=== PATIENT | female | born 1940 | race Caucasian/White ===

== ENCOUNTER 2016-08-25 19:55 | Emergency (ER) | payer MEDICARE ==
[~2016-08-25] VITALS: Ht 165.1 cm; Wt 73.1 kg
[~2016-08-25 19:55] MED LIST: ACHD5005 PO; ACYC800T PO; ALPR.25T; ALPR1TAB7 PO; ALPR1TAB72 PO; ASP81TEC PO; ATOR40TA70 PO; ATR20T PO; BENICAR; BUPR150T PO; BUPR300T51 PO; CHOLESTEROL MED PO; CIPR500T4 PO; CITA-105 PO; CLC500CT; ESCT10T; FLUT9.9S NSEACH; GAS X; GBPN100C PO; HCT25T PO; HYDR-2997 PO; HYDR-3820 PO; ISOS20TA73 PO; ISOS30TA3 PO; LACT1CAP45 PO; LISI10TA PO; LISI10TA2 PO; METO-333 PO; METO25TA PO; NAPR-243 PO; OMEG-12 PO; OMEP20CA12 PO; OMEP20TA7 PO; OXYC-309 PO; PANT20TA2 PO; SUCR1TAB PO; [UNRECOGNIZED DRUG - OTHER]
--- NOTE | 2016-08-25 21:13 | ED Lower Extremity ---
General Chief Complaint: Lower Extremity Stated Complaint: L FOOT INJ Nursing Triage Note: PT REPORTS TWISTING L ANKLE WHEN GETTING UP FROM RECLINER. MILD SWELLING NOTED. NO DEFORMITY NOTED AT TIS TIME. Nursing Sepsis Screen: No Definite Risk Source: patient Exam Limitations: no limitations History of Present Illness Time seen by provider: 21:13 Initial Comments 76-year-old female patient presents to the emergency department complaints of left foot/ankle pain. Reports she was getting up from the recliner and twisted the left ankle. Now complains of swelling and pain. Location Injury Occurred: home Onset: just prior to arrival Pain/Injury Location: left foot, left ankle Method of Injury: twisted Modifying Factors: Improves With Immobilization, Worse With Movement Allergies and Home Medications Allergies Coded Allergies: penicillin G (Unverified Allergy, Mild, HIVES...REC ANCEF WITHOUT PROBLEMS , 06/22/12) Iodinated Contrast Media - IV Dye (Verified Allergy, Unknown, 06/22/12) Home Medications Alprazolam 1 Mg Tablet 1 MG PO Q8H PRN PRN ANXIETY (Reported) Atorvastatin Calcium 40 Mg Tablet 40 MG PO HS (Reported) Bupropion HCl 300 Mg Tab.er.24h 300 MG PO DAILY (Reported) Ciprofloxacin HCl 500 Mg Tablet #14 500 MG PO BID Prescribed by: CLAIR ROMEO on 11/26/15 0857 Fluticasone Propionate 9.9 Ml [place].susp 2 SPRAYS NSEACH BID (Reported) Gabapentin 100 Mg Cap 100 MG PO TID PRN PRN PAIN (Reported) Hydrocodone/Acetaminophen 1 Each Tablet 1 TAB PO EVERY 4-6 HOURS PRN PRN PAIN ( Reported) Isosorbide Mononitrate 30 Mg Tab.er.24h 30 MG PO DAILY (Reported) Lactobacillus Acidophilus 1 Each Capsule #30 1 EACH PO TID Prescribed by: CLAIR ROMEO on 11/26/15 0857 Lisinopril 10 Mg Tablet 10 MG PO DAILY (Reported) Metoprolol Tartrate 25 Mg Tablet 25 MG PO BID (Reported) Omeprazole 20 Mg Capsule.dr 20 MG PO BID (Reported) Constitutional: no symptoms reported Respiratory: no symptoms reported Cardiovascular: no symptoms reported Musculoskeletal: see HPI joint pain joint swelling Skin: No change in color Psychiatric/Neurological: Denies Numbness, Denies Paresthesia, Denies Tingling , Denies Weakness All Other Systems Reviewed Negative Unless Noted: Yes (Negative excepted noted.) Past Xuauccw-Xbjwre-Jzudbj Hx Patient Social History Alcohol Use: Denies Use Recreational Drug Use: No Smoking Status: Former Smoker Type Used: Cigarettes Former Smoker/When Quit: December 22, 1991 2nd Hand Smoke Exposure: No Recent Foreign Travel: No Contact w/Someone Who Travel: No Recent Infectious Disease Expo: No Recent Hopitalizations: No Physical Abuse Screen: No Sexual Abuse: No Immunizations Up To Date Tetanus Booster (TDap): More than 5yrs PED Vaccines UTD: Yes Date of Pneumonia Vaccine: Aug 03, 2014 Date of Influenza Vaccine: May 29, 2014 Surgeries HX Surgeries: Yes (Hysterectomy, Left total knee, Back stimulator) Respiratory Hx Respiratory Disorders: No Cardiovascular Hx Cardiac Disorders: Yes (HEART CATH APPROX 2007) Neurological Hx Neurological Disorders: No Reproductive System Hx Reproductive Disorders: No Sexually Transmitted Disease: No HIV/AIDS: No Genitourinary Hx Genitourinary Disorders: No Gastrointestinal Hx Gastrointestinal Disorders: Yes (COLON RESECTION IN THE PAST) Musculoskeletal Hx Musculoskeletal Disorders: Yes (ARTHRITIS, FIBROMYALGIA) Endocrine Hx Endocrine Disorders: No HEENT HX ENT Disorders: No Cancer Hx Cancer: No Psychosocial Hx Psychiatric Problems: Yes Behavioral Health Disorders: Anxiety, Depression Integumentary HX Skin/Integumentary Disorder: No Blood Transfusions Hx Blood Disorders: No Adverse Reaction to a Blood Tr: No Reviewed Nursing Assessment Reviewed/Agree w Nursing PMH: Yes Family Medical History Significant Family History: No Pertinent Family Hx, Heart Disease, Cancer, CAD Over 55 Years Old, Hypertension Family Medial History: Cancer of mouth 19 FATHER Cardiovascular disease 19 MOTHER G8 BROTHER Colon cancer 19 MOTHER Diabetes mellitus G8 BROTHER Hypercholesterolemia 19 MOTHER Hypertension 19 MOTHER G8 BROTHER Myocardial infarction G8 BROTHER Physical Exam Vital Signs Capillary Refill : Less Than 3 Seconds General Appearance: WD/WN no apparent distress Cardiovascular: normal peripheral pulses regular rate, rhythm no edema no murmur Respiratory: lungs clear normal breath sounds no respiratory distress Back: normal inspection Hips: bilateral hip non-tender, bilateral hip normal inspection, bilateral hip normal range of motion, bilateral hip no evidence of injury Knees: bilateral knee non-tender, bilateral knee normal inspection, bilateral knee normal range of motion, bilateral knee no evidence of injury Ankles: bilateral ankle non-tender, bilateral ankle normal inspection, bilateral ankle normal range of motion, bilateral ankle no evidence of injury Feet: right foot non-tender, right foot normal inspection, right foot normal range of motion, right foot no evidence of injury, left foot bone tenderness ( lateral foot), left foot ecchymosis (lateral foot), left foot limited range of motion, left foot pain, left foot soft tissue tenderness, left foot swelling ( left lateral foot.) Neurologic/Tendon: normal sensation normal motor functions normal tendon functions responds to pain no evidence tendon injury Neurologic/Psychiatric: no motor/sensory deficits alert normal mood/affect oriented x 3 Skin: warm/dry ecchymosis (left lateral mid foot.) Progress/Results/Core Measures Results/Orders My Orders Orders-MARTHA ALEJANDRA Foot, Left, 3 Views (08/25/16 21:06) Oxycodone/Apap 5/325mg Tablet (Percocet (08/25/16 21:35) Steplite (08/25/16 21:35) Vital Signs/I&O Blood Pressure Mean: 101 Diagnostic Imaging Diagonstic Imaging: Xray Plain Films/CT/US/NM/MRI: other (lt foot) Comments FINDINGS: 3 views of the left foot are obtained. There is some subtle irregularity along the proximal lateral base of the fifth metatarsal which may be degenerative, however, a subtle avulsion fracture cannot be entirely excluded. Correlate with site of pain. There are degenerative changes in the interphalangeal joints. IMPRESSION: Possible subtle nondisplaced avulsion fracture through the lateral proximal base of fifth metatarsal, versus degenerative changes. Correlate clinically with site of pain. Short-term followup x-rays may be of benefit. Dictated on workstation # [id number] Reviewed: Reviewed by Me (radiology report reviewed by me) Departure Communication Progress Notes Diagnostic findings discussed with the patient. Patient placed in a Steplite boot. Patient instructed to follow-up with Dr. Vargas as an outpatient and to call tomorrow morning for appointment time. All return precautions were discussed with the patient. Patient voices understanding and agrees with the treatment plan. Impression Impression: Primary Impression: Fracture of 5th metatarsal Qualified Code: S92.355A - Nondisplaced fracture of fifth metatarsal bone, left foot, initial encounter for closed fracture Disposition: HOME, SELF-CARE Condition: Improved Departure-Patient Inst. Decision time for Depature: 21:35 Referrals: ROSALEE VARGAS MD, HOLLY A MD (PCP/Family) Primary Care Physician SONYA VERDE MD Patient Instructions: Foot Fracture (DC) Add. Discharge Instructions: All discharge instructions reviewed with patient and/or family. Voiced understanding. Medications as instructed. Continue usual home medications. Elevate the left foot on pillows. Ice pack for 20 minute intervals as needed for pain. Boot as instructed. Follow-up with Dr. Vargas or your family practitioner as an outpatient for recheck in the next 7 days. Call for appointment time tomorrow morning. Return to the emergency department for worsened symptoms or any other concerns. MARTHA ALEJANDRA Aug 25, 2016 21:13
--- NOTE | 2016-08-25 21:24 | Diagnostic Imaging Report ---
INDICATION: Fall. COMPARISON: None FINDINGS: 3 views of the left foot are obtained. There is some subtle irregularity along the proximal lateral base of the fifth metatarsal which may be degenerative, however, a subtle avulsion fracture cannot be entirely excluded. Correlate with site of pain. There are degenerative changes in the interphalangeal joints. IMPRESSION: Possible subtle nondisplaced avulsion fracture through the lateral proximal base of fifth metatarsal, versus degenerative changes. Correlate clinically with site of pain. Short-term followup x-rays may be of benefit. Dictated by: Dictated on workstation # [id number]
[2016-08-25] MEDS ORDERED: oxyCODONE/APAP 5/325MG (PERCOCET 5) TABLET PO STA (21:35)
[2016-08-25 21:59] VITALS: BP 137/84
== END 2016-08-25 22:00 | disposition home or self-care (01) ==
LOC: EDUNIT# 19:55 → ER 19:57
DX: S92.355A Nondisplaced fracture of fifth metatarsal bone, left foot, initial encounter for closed fracture (principal); X58.XXXA Exposure to other specified factors, initial encounter; Y92.009 Unspecified place in unspecified non-institutional (private) residence as the place of occurrence of the external cause; Y99.8 Other external cause status
CPT/HCPCS: 73630

== ENCOUNTER → 2016-09-29 | Outpatient (CLI) | payer MEDICARE ==
--- NOTE | 2016-10-01 13:29 | ECHOCARDIOGRAPHY REPORT ---
PROCEDURE PHYSICIAN: KRISTIAN TRONCOSO DATE OF PROCEDURE: 09/29/2016 TWO DIMENSIONAL ECHOCARDIOGRAM REPORT PRIMARY PHYSICIAN: Dr. Newby OTHER PHYSICIAN: REFERRING PHYSICIAN: ORDERING PHYSICIAN: Dr. Troncoso INDICATION FOR THE PROCEDURE: Shortness of breath, aortic stenosis MEASUREMENTS DERIVED VALUES LV DIAMETER (LAX) NORMALS NORMALS Diastolic 5.3 (3.6-5.2) Eject. Fract. (60%+/-6%) Systolic (2.3-3.9) Diastolic Vol. % Shortening (0.22-0.42) Systolic Vol. Aortic Root 2.8 IVS THICKNESS Diastolic 1. (0.6-1.1) LVPW THICKNESS Diastolic 1.1 (0.6-1.1) LA DIAMETER Systolic 4.7 (2.1-3.7) DESCRIPTION: 2-dimension echocardiography shows normal global left ventricular systolic function with normal regional wall motion. Mitral and tricuspid valve leaflets show good leaflet excursion. There is moderate aortic valve sclerosis. Aortic valve leaflet shows fair to good leaflet excursion. There is no significant pericardial effusion. There is mild to moderate enlargement of the left atrium. Doppler imaging shows mild mitral and tricuspid and aortic regurgitation. Pulmonary artery systolic pressure is estimated to be approximately 45 to 50 mmHg. Peak pressure gradient across the aortic valve is approximately 41 mmHg with a mean gradient of 21 mmHg. The aortic valve area is calculated to be approximately 1.2 sq cm. There is no evidence of significant intracardiac shunt on this transthoracic echocardiographic study. Inferior vena cava appears to be mildly dilated but does seem to have some inspiratory collapse. CONCLUSION: 1. Normal left ventricular systolic function with ejection fraction approximately 50%. 2. Moderate aortic stenosis with a mean gradient across the aortic valve of approximately 20 mmHg and a calculated valve area approximately 1.2 sq cm. 3. Mild aortic, mitral and tricuspid regurgitation. 4. Pulmonary artery systolic pressure is estimated to be approximately 45 to 50 mm of mercury. 5. Mild to moderate enlargement of the left atrium. Job ID: [id number] Dictated Date: 10/01/2016 10:50:35 Cardiovascular Radiologic Technologist Date: 10/01/2016 13:20:22 / dillan
== END ==
LOC: RAD 11:13
PROVIDERS: ATTEND Internal Medicine Cardiovascular Disease
DX: I70.213 Atherosclerosis of native arteries of extremities with intermittent claudication, bilateral legs (principal); R06.02 Shortness of breath; I35.0 Nonrheumatic aortic (valve) stenosis; I10 Essential (primary) hypertension; E78.4 Other hyperlipidemia; G47.33 Obstructive sleep apnea (adult) (pediatric); R00.2 Palpitations
CPT/HCPCS: 93225; 93226; 93306; 93923

== ENCOUNTER → 2016-10-13 | Outpatient (CLI) | payer MEDICARE ==
[~2016-10-13] VITALS: Ht 167.6 cm; Wt 63.0 kg
[~2016-10-13] MED LIST changes: +CATHETER FLUSH 10 ML SYR IV PRN; +REGADENOSON 0.4 MG/5 ML SYR (LEXISCAN) IV ONE
[2016-10-13 09:41] VITALS: BP 139/73
[2016-10-13 09:52] VITALS: BP 141/68
--- NOTE | 2016-10-14 07:43 | STRESS TEST ---
PROCEDURE PHYSICIAN: KRISTIAN TRONCOSO DATE OF PROCEDURE: 10/13/2016 RESTING AND POST REGADENOSON TECHNETIUM 99M TETROFOSMIN SPECT CT IMAGING: ORDERING PHYSICIAN: Dr. Troncoso. PRIMARY PHYSICIAN: Dr. Newby CLINICAL DIAGNOSIS: 1. Shortness of breath. 2. Aortic stenosis. 3. Hypertension. Baseline images were carried out after injection of 10.11 mCi of technetium 99m tetrofosmin. This was followed by 0.4 mg of regadenoson and 30.3 mCi of technetium 99m tetrofosmin for stress imaging. The electrocardiogram showed sinus rhythm at baseline and did not change significantly with the regadenoson infusion. Review of images at rest and following stress, does not indicate any significant perfusion defects consistent with significant myocardial ischemia or infarction. Gating could not be carried out on this study. CONCLUSIONS: 1. No evidence of any significant myocardial ischemia or infarction on this study. 2. Gating could not be carried out on this study. Job ID: [id number] Dictated Date: 10/13/2016 18:17:50 Bit Gatherer Date: 10/14/2016 07:41:00 / sidney
== END ==
LOC: CARD 08:15
PROVIDERS: ATTEND Internal Medicine Cardiovascular Disease
DX: I35.0 Nonrheumatic aortic (valve) stenosis (principal); R06.02 Shortness of breath; I10 Essential (primary) hypertension; E78.4 Other hyperlipidemia; G47.33 Obstructive sleep apnea (adult) (pediatric); R00.2 Palpitations

== ENCOUNTER → 2017-01-05 | Outpatient (CLI) | payer MEDICARE ==
[~2017-01-05] MED LIST changes: -CATHETER FLUSH 10 ML SYR IV PRN; -REGADENOSON 0.4 MG/5 ML SYR (LEXISCAN) IV ONE
--- NOTE | 2017-01-06 13:49 | Diagnostic Imaging Report ---
Bilateral screening mammogram The current study was also evaluated with a Computer Aided Detection (CAD) system. INDICATION: Screening. No current complaints stated on the questionnaire. COMPARISON: 10/11/13. FINDINGS: The breasts are composed of scattered fibroglandular densities. There are occasional benign-appearing calcifications. Allowing for technique and positional differences, no suspicious change is seen. IMPRESSION: No significant change. ACR BI-RADS Category 2: Benign findings. Result letter will be mailed to the patient. Note: At least 10% of breast cancer is not imaged by mammography. Dictated by: Dictated on workstation # [id number]
== END ==
LOC: RAD 11:05
PROVIDERS: ATTEND Nurse Practitioner Family
DX: Z12.31 Encounter for screening mammogram for malignant neoplasm of breast (principal)
CPT/HCPCS: 77067

== ENCOUNTER → 2018-05-17 | Outpatient (CLI) | payer MEDICARE | LOC: CARD 11:40 | PROVIDERS: ATTEND Internal Medicine Cardiovascular Disease | DX: I27.21 Secondary pulmonary arterial hypertension (principal); I35.0 Nonrheumatic aortic (valve) stenosis; R00.2 Palpitations; G47.33 Obstructive sleep apnea (adult) (pediatric); R06.02 Shortness of breath | CPT/HCPCS: 93225; 93226 ==

== ENCOUNTER → 2018-07-05 | Day surgery (SDC) | payer MEDICARE ==
[~2018-07-05] VITALS: Ht 167.6 cm; Wt 63.0 kg
[~2018-07-05] MED LIST changes: +LIDOCAINE 1% INJ 20 ML 20 ML VIAL ONE
[2018-07-05 06:55] VITALS: BP 144/64
--- OUTSIDE RECORDS SUMMARY | 2018-07-05 07:11 | XMS REPORT | CCD ---
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 Name Role Phone Rachael Newby PP Unavailable CCM Unavailable Summary Purpose Interface Exchange Insurance Providers Payer name Policy type / Coverage type Covered republican ID Effective Begin Date Effective End Date WPS Medicare Part B Medicare Part B [id number] 2013 Unknown [facility] Medicare Part B [id number] 2013 Unknown Family history Runs in the family Diagnosis Age At Onset Cardiovascular disease Unknown Father Diagnosis Age At Onset Cancer Unknown Mother Diagnosis Age At Onset Cancer Unknown Brother Diagnosis Age At Onset Myocardial infarction Unknown Cardiovascular disease Unknown Cancer Unknown Son Diagnosis Age At Onset No Family Disease Entered N/A Social History Social History Element Codes Description Effective Dates Marital status Unknown October 2004 - committed suicide 04/16/2011 Number of children Unknown 4 1 daughter in [place], 3 sons live in [facility] Employment Unknown 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 Unknown Has never used illegal drugs 04/16/2011 Allergies, Adverse Reactions, Alerts Substance Reaction Codes Entered Date Inactivated Date Status PENICILLINS hives, rash Unknown 04/16/2011 No Inactive Date Active Past Medical History Illness Codes Condition Status Onset Date Resolved Date Essential (primary) hypertension ICD-9: 401.9 ICD-10: I10 Active 03/05/2014 Unknown Chronic pain syndrome ICD-9: 338.4 ICD-10: G89.4 Active 08/10/2016 Unknown Essential (primary) hypertension ICD-9: 401.1 ICD-10: I10 Active 08/10/2016 Unknown neuropathy Unknown Active 05/27/2017 Unknown Encounter for immunization ICD-9: V04.81 ICD-10: Z23 Active 05/27/2017 Unknown Major depressive disorder, recurrent, moderate ICD-9: 296.32 ICD-10: F33.1 Active 04/27/2017 Unknown Other idiopathic peripheral autonomic neuropathy ICD-9: 337.00 ICD-10: G90.09 Active 05/27/2017 Unknown Vitamin B12 deficiency anemia due to intrinsic factor deficiency ICD-9: 281.0 ICD-10: D51.0 Active 04/27/2017 Unknown Vitamin B12 deficiency anemia, unspecified ICD-9: 266.2 ICD-10: D51.9 Active 08/10/2016 Unknown Other specified polyneuropathies ICD-9: 356.9 ICD-10: G62.89 Active 03/09/2017 Unknown Allergic rhinitis due to pollen ICD-9: 477.0 ICD-10: J30.1 Active 02/22/2017 Unknown Dysuria ICD-9: 788.1 ICD-10: R30.0 Active 05/26/2016 Unknown Elevated erythrocyte sedimentation rate ICD-9: 790.1 ICD-10: R70.0 Active 12/28/2016 Unknown Encounter for general adult medical examination with abnormal findings ICD-9: V70.0 ICD-10: Z00.01 Active 12/28/2016 Unknown Urinary tract infection, site not specified ICD-9: 599.0 ICD-10: N39.0 Active 12/24/2016 Unknown Other vitamin B12 deficiency anemias ICD-9: 281.1 ICD-10: D51.8 Active 10/14/2016 Unknown Allergic urticaria ICD -9: 708.0 ICD-10: L50.0 Active 10/06/2016 Unknown Generalized anxiety disorder ICD-9: 300.02 ICD-10: F41.1 Active 05/16/2014 Unknown Anemia, unspecified ICD-9: 285.9 ICD-10: D64.9 Active 08/10/2016 Unknown Vitamin D deficiency, unspecified ICD-9: 268.9 ICD-10: E55.9 Active 08/10/2016 Unknown Rash and other nonspecific skin eruption ICD-9: 782.1 ICD-10: R21 Active 12/07/2013 Unknown Other specified dermatitis ICD-9: 705.81 ICD-10: L30.8 Active 02/01/2014 Unknown Encounter for follow-up examination after completed treatment for conditions other than malignant neoplasm ICD-9: V67.9 ICD-10: Z09 Active 12/02/2015 Unknown Family history of malignant neoplasm of digestive organs ICD-9: V16.0 ICD-10: Z80.0 Active 12/02/2015 Unknown Gastro-esophageal reflux disease without esophagitis ICD-9: 530.81 ICD-10: K21.9 Active 09/10/2014 Unknown Mixed hyperlipidemia ICD-9: 272.4 ICD-10: E78.2 Active 01/22/2012 Unknown Pain in right shoulder ICD-9: 729.1 ICD-10: M25.511 Active 03/05/2014 Unknown Frequency of micturition ICD-9: 788.41 ICD-10: R35.0 Active 06/11/2015 Unknown Other constipation ICD -9: 564.09 ICD-10: K59.09 Active 05/08/2015 Unknown OTHER CONSTIPATION ICD -9: 564.09 Active 05/08/2015 Unknown Abdominal pain ICD-9: 789.00 Active 04/11/2015 Unknown Peripheral neuropathy ICD-9: 356.9 Active 02/08/2012 Unknown Vitamin D deficiency ICD-9: 268.9 Active 04/11/2015 Unknown Blood in stool ICD-9: 578.1 Active 03/11/2015 Unknown Hemorrhoids ICD-9: 455.6 Active 03/11/2015 Unknown Weight loss ICD-9: 783.21 Active 03/11/2015 Unknown Aortic regurgitation ICD-9: 424.1 Active 01/07/2015 Unknown Fatigue ICD-9: 780.79 Active 01/22/2012 Unknown Heart murmur ICD-9: 785.2 Active 01/07/2015 Unknown Encounter for screening mammogram for malignant neoplasm of breast ICD-9: V76.12 Active 10/15/2014 Unknown Esophageal reflux ICD- 9: 530.81 Active 09/10/2014 Unknown ACUTE URI ICD-9: 465.9 Active 08/06/2014 Unknown VACCIN STREP PNEUMONIAE ICD-9: V03.82 ICD-10: Z23 Active 08/06/2014 Unknown CHRONIC PAIN SYNDROME ICD-9: 338.4 Active 07/12/2014 Unknown Anxiety, generalized ICD-9: 300.02 Active 05/16/2014 Unknown Insomnia ICD-9: 780.52 Active 04/05/2014 Unknown Vitamin B 12 deficiency ICD-9: 266.2 Active 04/05/2014 Unknown DEPRESSIVE DISORDER NEC ICD-9: 311 Active 03/05/2014 Unknown ESSENTIAL HYPERTENSION ICD-9: 401.9 Active 03/05/2014 Unknown MYALGIA AND MYOSITIS ICD-9: 729.1 Active 03/05/2014 Unknown Dyshidrotic eczema ICD -9: 705.81 Active 02/01/2014 Unknown Rash ICD-9: 782.1 Active 12/07/2013 Unknown Dietary counseling ICD -9: V65.3 Active 09/25/2013 Unknown Back pain ICD-9: 724.5 Active 05/18/2013 Unknown Sleep apnea ICD-9: 780.57 Active 04/18/2013 Unknown Snoring disorder ICD-9 : 786.09 Active 03/16/2013 Unknown CELLULITIS OF NECK ICD -9: 682.1 Active 01/26/2013 Unknown CELLULITIS OF TRUNK ICD-9: 682.2 Active 01/26/2013 Unknown CELLULITIS, FINGER ICD -9: 681.00 Active 12/27/2012 Unknown JOINT PAIN-HAND ICD-9 : 719.44 Active 12/27/2012 Unknown Elevated glucose ICD-9 : 790.29 Active 10/07/2012 Unknown Encounter for long-term (current) use of other medications ICD-9: V58.69 Active 10/07/2012 Unknown ACUTE MAXILLARY SINUSITIS ICD-9: 461.0 Active 08/02/2012 Unknown Dental abscess ICD-9: 522.5 Active 08/02/2012 Unknown Neck pain on right side ICD-9: 723.1 Active 06/06/2012 Unknown Sacroiliitis ICD-9: 720.2 Active 06/06/2012 Unknown Tennis elbow ICD-9: 726.32 Active 06/06/2012 Unknown Medial epicondylitis ICD-9: 726.31 Active 05/16/2012 Unknown Depression Unknown Active 02/29/2012 Unknown EDEMA ICD-9: 782.3 Active 02/29/2012 Unknown ANEMIA ICD-9: 285.9 Active 02/08/2012 Unknown Acute renal failure ICD-9: 584.9 Active 02/01/2012 Unknown Paronychia of toe ICD- 9: 681.11 Active 02/01/2012 Unknown History of iron deficiency anemia ICD-9: V12.3 Active 2011 Unknown HYPERLIPIDEMIA ICD-9: 272.4 Active 01/22/2012 Unknown Oral aphthae ICD-9: 528.2 Active 01/22/2012 Unknown ACUTE SINUSITIS ICD-9 : 461.9 Active 10/19/2011 Unknown COUGH ICD-9: 786.2 Active 10/19/2011 Unknown Small bowel obstruction Unknown Inactive 09/10/2011 Unknown Fall from slipping ICD -9: E885.9 Inactive 09/10/2011 Unknown ROUTINE GYNE EXAM ICD- 9: V72.31 Inactive 09/09/2011 Unknown Hyperlipidemia Unknown Active 08/13/2011 Unknown Hypertension Unknown Active 08/13/2011 Unknown Primary localized osteoarthrosis of the knee ICD-9: 715.16 Active 07/02/2011 Unknown Knee pain, left ICD-9 : 719.46 Active 06/24/2011 Unknown Arthritis Unknown Active 04/16/2011 Unknown Problems Condition Codes Effective Dates Condition Status Essential (primary) hypertension ICD-9: 401.9 ICD-10: I10 03/05/2014 Active Chronic pain syndrome ICD-9: 338.4 ICD-10: G89.4 08/10/2016 Active Essential (primary) hypertension ICD-9: 401.1 ICD-10: I10 08/10/2016 Active neuropathy Unknown 05/27/2017 Active Encounter for immunization ICD-9: V04.81 ICD-10: Z23 05/27/2017 Active Major depressive disorder, recurrent, moderate ICD-9: 296.32 ICD-10: F33.1 04/27/2017 Active Other idiopathic peripheral autonomic neuropathy ICD-9: 337.00 ICD-10: G90.09 05/27/2017 Active Vitamin B12 deficiency anemia due to intrinsic factor deficiency ICD-9: 281.0 ICD-10: D51.0 04/27/2017 Active Vitamin B12 deficiency anemia, unspecified ICD-9: 266.2 ICD-10: D51.9 08/10/2016 Active Other specified polyneuropathies ICD-9: 356.9 ICD-10: G62.89 03/09/2017 Active Allergic rhinitis due to pollen ICD-9: 477.0 ICD-10: J30.1 02/22/2017 Active Dysuria ICD-9: 788.1 ICD-10: R30.0 05/26/2016 Active Elevated erythrocyte sedimentation rate ICD-9: 790.1 ICD-10: R70.0 12/28/2016 Active Encounter for general adult medical examination with abnormal findings ICD-9: V70.0 ICD-10: Z00.01 12/28/2016 Active Urinary tract infection, site not specified ICD-9: 599.0 ICD-10: N39.0 12/24/2016 Active Other vitamin B12 deficiency anemias ICD-9: 281.1 ICD-10: D51.8 10/14/2016 Active Allergic urticaria ICD -9: 708.0 ICD-10: L50.0 10/06/2016 Active Generalized anxiety disorder ICD-9: 300.02 ICD-10: F41.1 05/16/2014 Active Anemia, unspecified ICD-9: 285.9 ICD-10: D64.9 08/10/2016 Active Vitamin D deficiency, unspecified ICD-9: 268.9 ICD-10: E55.9 08/10/2016 Active Rash and other nonspecific skin eruption ICD-9: 782.1 ICD-10: R21 12/07/2013 Active Other specified dermatitis ICD-9: 705.81 ICD-10: L30.8 02/01/2014 Active Encounter for follow-up examination after completed treatment for conditions other than malignant neoplasm ICD-9: V67.9 ICD-10: Z09 12/02/2015 Active Family history of malignant neoplasm of digestive organs ICD-9: V16.0 ICD-10: Z80.0 12/02/2015 Active Gastro-esophageal reflux disease without esophagitis ICD-9: 530.81 ICD-10: K21.9 09/10/2014 Active Mixed hyperlipidemia ICD-9: 272.4 ICD-10: E78.2 01/22/2012 Active Pain in right shoulder ICD-9: 729.1 ICD-10: M25.511 03/05/2014 Active Frequency of micturition ICD-9: 788.41 ICD-10: R35.0 06/11/2015 Active Other constipation ICD -9: 564.09 ICD-10: K59.09 05/08/2015 Active OTHER CONSTIPATION ICD -9: 564.09 05/08/2015 Active Abdominal pain ICD-9: 789.00 04/11/2015 Active Peripheral neuropathy ICD-9: 356.9 02/08/2012 Active Vitamin D deficiency ICD-9: 268.9 04/11/2015 Active Blood in stool ICD-9: 578.1 03/11/2015 Active Hemorrhoids ICD-9: 455.6 03/11/2015 Active Weight loss ICD-9: 783.21 03/11/2015 Active Aortic regurgitation ICD-9: 424.1 01/07/2015 Active Fatigue ICD-9: 780.79 01/22/2012 Active Heart murmur ICD-9: 785.2 01/07/2015 Active Encounter for screening mammogram for malignant neoplasm of breast ICD-9: V76.12 10/15/2014 Active Esophageal reflux ICD- 9: 530.81 09/10/2014 Active ACUTE URI ICD-9: 465.9 08/06/2014 Active VACCIN STREP PNEUMONIAE ICD-9: V03.82 ICD-10: Z23 08/06/2014 Active CHRONIC PAIN SYNDROME ICD-9: 338.4 07/12/2014 Active Anxiety, generalized ICD-9: 300.02 05/16/2014 Active Insomnia ICD-9: 780.52 04/05/2014 Active Vitamin B 12 deficiency ICD-9: 266.2 04/05/2014 Active DEPRESSIVE DISORDER NEC ICD-9: 311 03/05/2014 Active ESSENTIAL HYPERTENSION ICD-9: 401.9 03/05/2014 Active MYALGIA AND MYOSITIS ICD-9: 729.1 03/05/2014 Active Dyshidrotic eczema ICD -9: 705.81 02/01/2014 Active Rash ICD-9: 782.1 12/07/2013 Active Dietary counseling ICD -9: V65.3 09/25/2013 Active Back pain ICD-9: 724.5 05/18/2013 Active Sleep apnea ICD-9: 780.57 04/18/2013 Active Snoring disorder ICD-9 : 786.09 03/16/2013 Active CELLULITIS OF NECK ICD -9: 682.1 01/26/2013 Active CELLULITIS OF TRUNK ICD-9: 682.2 01/26/2013 Active CELLULITIS, FINGER ICD -9: 681.00 12/27/2012 Active JOINT PAIN-HAND ICD-9 : 719.44 12/27/2012 Active Elevated glucose ICD-9 : 790.29 10/07/2012 Active Encounter for long-term (current) use of other medications ICD-9: V58.69 2012 Active ACUTE MAXILLARY SINUSITIS ICD-9: 461.0 08/02/2012 Active Dental abscess ICD-9: 522.5 08/02/2012 Active Neck pain on right side ICD-9: 723.1 06/06/2012 Active Sacroiliitis ICD-9: 720.2 06/06/2012 Active Tennis elbow ICD-9: 726.32 06/06/2012 Active Medial epicondylitis ICD-9: 726.31 05/16/2012 Active Depression Unknown 02/29/2012 Active EDEMA ICD-9: 782.3 02/29/2012 Active ANEMIA ICD-9: 285.9 02/08/2012 Active Acute renal failure ICD-9: 584.9 02/01/2012 Active Paronychia of toe ICD- 9: 681.11 02/01/2012 Active History of iron deficiency anemia ICD-9: V12.3 01/22/2012 Active HYPERLIPIDEMIA ICD-9: 272.4 01/22/2012 Active Oral aphthae ICD-9: 528.2 01/22/2012 Active ACUTE SINUSITIS ICD-9 : 461.9 10/19/2011 Active COUGH ICD-9: 786.2 10/19/2011 Active Small bowel obstruction Unknown 09/10/2011 Inactive Fall from slipping ICD -9: E885.9 09/10/2011 Inactive ROUTINE GYNE EXAM ICD- 9: V72.31 09/09/2011 Inactive Hyperlipidemia Unknown 08/13/2011 Active Hypertension Unknown 08/13/2011 Active Primary localized osteoarthrosis of the knee ICD-9: 715.16 07/02/2011 Active Knee pain, left ICD-9 : 719.46 06/24/2011 Active Arthritis Unknown 04/16/2011 Active Medications Medication Codes Instructions Start Date Stop Date Status Fill Instructions isosorbide mononitrate 10 mg tablet RxNorm: 027658 1 Tablet(s) PO daily 09/03/2017 03/31/2018 Active pantoprazole 40 mg tablet,delayed release RxNorm: 793345 1 Tablet(s) PO BID x 1 wk then daily thereafter 09/03/2017 No Stop Date Active hydrocodone 10 mg-acetaminophen 325 mg tablet RxNorm: 358882 1 Tablet(s) PO Q4-6H as needed pain 07/09/2017 08/01/2017 Inactive alprazolam 1 mg tablet RxNorm: 901754 1 Tablet(s) PO Q8 PRN as needed TAKE 1 TABLET THREE TIMES DAILY NEEDED FOR ANXIETY. 07/01/2017 08/29/2017 Inactive omeprazole 20 mg tablet,delayed release RxNorm: 480360 1 Tablet(s) PO BID 07/01/2017 08/29/2017 Inactive omeprazole 20 mg tablet,delayed release RxNorm: 743487 1 Tablet(s) PO BID Tablet(s ) 1 Tablet(s) PO BID 06/30/20172016 Inactive hydrocodone 10 mg-acetaminophen 325 mg tablet RxNorm: 847339 1 Tablet(s) PO Q4-6H as needed pain 06/24/2017 07/08/2017 Inactive bupropion HCl XL 300 mg 24 hr tablet, extended release RxNorm: 444937 1 Tablet(s) PO daily 05/27/2017 08/19/2018 Active alprazolam 1 mg tablet RxNorm: 306550 1 Tablet(s) PO Q8 PRN as needed TAKE 1 TABLET THREE TIMES DAILY NEEDED FOR ANXIETY. 05/27/2017 06/30/2017 Inactive hydrocodone 10 mg-acetaminophen 325 mg tablet RxNorm: 632678 1 Tablet(s) PO Q4-6H as needed pain 05/27/2017 06/19/2017 Inactive cyanocobalamin (vit B-12) 1,000 mcg/mL injection solution RxNorm: 040853 1 Milliliter(s) Inj 05/27/2017 05/27/2017 Inactive cyanocobalamin (vit B-12) 1,000 mcg/mL injection solution RxNorm: 798394 1 Milliliter(s) Inj 04/27/2017 04/27/2017 Inactive hydrocodone 10 mg-acetaminophen 325 mg tablet RxNorm: 262227 1 Tablet(s) PO Q4-6H as needed pain 04/27/2017 05/26/2017 Inactive Cymbalta 60 mg capsule,delayed release RxNorm: 445893 1 Capsule(s) PO daily 04/27/2017 04/27/2017 Inactive cyanocobalamin (vit B-12) 1,000 mcg/mL injection solution RxNorm: 005699 1 Milliliter(s) Inj 04/09/2017 04/09/2017 Inactive cyanocobalamin (vit B-12) 1,000 mcg/mL injection solution RxNorm: 859957 Milliliter(s) Inj 03/23/2017 03/23/2017 Inactive alprazolam 1 mg tablet RxNorm: 924139 1 Tablet(s) PO Q8 PRN as needed TAKE 1 TABLET THREE TIMES DAILY NEEDED FOR ANXIETY. 03/17/2017 05/15/2017 Inactive cyanocobalamin (vit B-12) 1,000 mcg/mL injection solution RxNorm: 453966 Milliliter(s) Inj 03/11/2017 03/11/2017 Inactive metoprolol tartrate 50 mg tablet RxNorm: 152029 1 Tablet(s) PO BID 03/09/2017 03/03/2018 Active this replaces the 25mg RX for metoprolol tartate Metanx (algal oil) 3 mg-35 mg-2 mg-90.314 mg capsule RxNorm: 1 Capsule(s) PO BID 03/09/2017 05/17/2017 Inactive gabapentin 100 mg capsule RxNorm: 415726 2 Capsule(s) PO TID 05/31/2017 Inactive Zofran 4 mg tablet RxNorm: 111578 1 Tablet(s) PO TID as needed 02/26/2017 No Stop Date Active Kenalog 40 mg/mL suspension for injection RxNorm: 1135349 1 Milliliter(s) Inj 02/22/2017 02/22/2017 Inactive metoprolol tartrate 25 mg tablet RxNorm: 329518 1 Tablet(s) PO BID 02/22/2017 03/08/2017 Inactive 07/23/2016 10:27:52 AM trimethoprim 100 mg tablet RxNorm: 883444 1 Tablet(s) PO daily 01/02/2017 12/24/2016 Inactive Lipitor 40 mg tablet RxNorm: 556607 TAKE ONE TABLET BY MOUTH AT BEDTIME 12/25/2016 12/19/2017 Active Generic For:LIPITOR 40MG TAB refill request trimethoprim 100 mg tablet RxNorm: 927499 1 Tablet(s) PO daily 12/25/2016 06/22/2017 Inactive bupropion HCl XL 300 mg 24 hr tablet, extended release RxNorm: 280488 1 Tablet(s) PO daily 12/25/2016 04/26/2017 Inactive Bactrim DS 800 mg-160 mg tablet RxNorm: 528912 1 Tablet(s) PO BID 12/24/2016 01/02/2017 Inactive hydrocodone 10 mg-acetaminophen 325 mg tablet RxNorm: 667910 1 Tablet(s) PO Q4-6H as needed pain 12/24/2016 01/22/2017 Inactive bupropion HCl XL 300 mg 24 hr tablet, extended release RxNorm: 348587 1 Tablet(s) PO daily 12/24/2016 12/24/2016 Inactive omeprazole 20 mg tablet,delayed release RxNorm: 611871 Tablet(s) 1 Tablet(s) PO BID 11/27/2016 05/25/2017 Inactive hydrocodone 10 mg-acetaminophen 325 mg tablet RxNorm: 920853 1 Tablet(s) PO Q4-6H as needed pain 11/18/2016 12/11/2016 Inactive alprazolam 1 mg tablet RxNorm: 446840 1 Tablet(s) PO Q8 PRN as needed TAKE 1 TABLET THREE TIMES DAILY NEEDED FOR ANXIETY. 11/18/2016 02/15/2017 Inactive hydrocodone 10 mg-acetaminophen 325 mg tablet RxNorm: 013642 1 Tablet(s) PO Q4-6H as needed pain 10/19/2016 11/11/2016 Inactive cyanocobalamin (vit B-12) 1,000 mcg/mL injection solution RxNorm: 430543 1 Milliliter(s) Inj 10/14/2016 10/14/2016 Inactive prednisone 20 mg tablet RxNorm: 197512 3 Tablet(s) PO daily 10/08/2016 Inactive Metanx (algal oil) 3 mg-35 mg-2 mg-90.314 mg capsule RxNorm: 1 Capsule(s) PO BID 10/01/2016 01/28/2017 Inactive isosorbide mononitrate ER 30 mg tablet,extended release 24 hr RxNorm: 076191 1 Tablet(s) PO daily TAKE 1 TABLET BY MOUTH ONCE DAILY. 201612/23/2016 Inactive hydrocodone 10 mg-acetaminophen 325 mg tablet RxNorm: 108386 1 Tablet(s) PO Q4-6H as needed pain 09/24/2016 10/17/2016 Inactive cyanocobalamin (vit B-12) 1,000 mcg/mL injection solution RxNorm: 961960 Milliliter(s) Inj 09/16/2016 09/16/2016 Inactive alprazolam 1 mg tablet RxNorm: 018843 1 Tablet(s) PO Q8 PRN as needed TAKE 1 TABLET THREE TIMES DAILY NEEDED FOR ANXIETY. 09/01/2016 11/28/2016 Inactive hydrocodone 10 mg-acetaminophen 325 mg tablet RxNorm: 686795 1 Tablet(s) PO Q4-6H as needed pain 09/01/2016 09/23/2016 Inactive Vitamin D2 50,000 unit capsule RxNorm: 549269 1 Capsule(s) PO QW 08/14/2016 05/26/2017 Inactive Vitamin D2 50,000 unit capsule RxNorm: 507945 1 Capsule(s) PO QW 08/14/2016 08/13/2016 Inactive cyanocobalamin (vit B-12) 1,000 mcg/mL injection solution RxNorm: 955299 1 Milliliter(s) Inj 08/11/2016 08/11/2016 Inactive hydrocodone 10 mg-acetaminophen 325 mg tablet RxNorm: 352028 1 Tablet(s) PO Q4-6H as needed pain 08/07/2016 08/30/2016 Inactive metoprolol tartrate 25 mg tablet RxNorm: 784165 TAKE 1 TABLET BY MOUTH TWICE DAILY 07/23/2016 12/23/2016 Inactive 07/23/2016 10:27:52 AM gabapentin 100 mg capsule RxNorm: 338935 Capsule(s) PO TID TAKE (1) CAPSULE BY MOUTH THREE TIMES DAILY. 07/14/20162016 Inactive hydrocodone 10 mg-acetaminophen 325 mg tablet RxNorm: 243933 1 Tablet(s) PO Q4-6H as needed pain 07/09/2016 08/01/2016 Inactive fluorouracil 5 % topical cream RxNorm: 394039 1 Application TOP BID 07/01/2016 06/30/2016 Inactive fluorouracil 5 % topical cream RxNorm: 844641 1 Application TOP BID 07/01/2016 07/10/2016 Inactive alprazolam 1 mg tablet RxNorm: 376970 1 Tablet(s) PO Q8 PRN as needed TAKE 1 TABLET THREE TIMES DAILY NEEDED FOR ANXIETY. 06/22/2016 08/31/2016 Inactive ( Appended: Controlled substance eRx refill - RxReferenceNumber: [id number]) hydrocodone 10 mg-acetaminophen 325 mg tablet RxNorm: 653952 1 Tablet(s) PO Q4-6H as needed pain 06/16/2016 06/30/2016 Inactive doxycycline hyclate 100 mg capsule RxNorm: 7939202 1 Capsule(s) PO BID 05/27/2016 06/02/2016 Inactive hydrocodone 10 mg-acetaminophen 325 mg tablet RxNorm: 427219 1 Tablet(s) PO Q4-6H as needed pain 05/12/2016 06/04/2016 Inactive [SAVINGS FOR NON-COVERED DRUGS -- BIN :[id number], PCN: ASPROD1, Group: XXXXX, ID# [id number], Questions: . THIS IS NOT INSURANCE.] alprazolam 1 mg tablet RxNorm: 019844 1 Tablet(s) PO Q8 PRN as needed TAKE 1 TABLET THREE TIMES DAILY NEEDED FOR ANXIETY. 05/01/2016 11/17/2016 Inactive ( Appended: Controlled substance eRx refill - RxReferenceNumber: [id number]) Flonase 50 mcg/actuation nasal spray,suspension RxNorm: 1883441 1 [place] NASAL BID 1 [place] NASAL BID 04/23/2016 04/17/2017 Inactive Flonase 50 mcg/actuation nasal spray,suspension RxNorm: 3627540 [place] 1 [place] NASAL BID 04/23/2016 04/22/2016 Inactive iron-vitamin C 100 mg-250 mg tablet RxNorm: 315069 1 Tablet(s) PO daily 04/23/2016 08/31/2016 Inactive hydrocodone 10 mg-acetaminophen 325 mg tablet RxNorm: 005869 1 Tablet(s) PO Q4-6H as needed pain 04/14/2016 05/07/2016 Inactive [SAVINGS FOR NON-COVERED DRUGS -- BIN :[id number], PCN: ASPROD1, Group: XXXXX, ID# [id number], Questions: . THIS IS NOT INSURANCE.] omeprazole 20 mg tablet,delayed release RxNorm: 548266 Tablet(s) 1 Tablet(s) PO BID 03/16/2016 09/11/2016 Inactive doxycycline hyclate 100 mg tablet RxNorm: 238527 1 Tablet(s) PO BID 03/16/2016 03/15/2016 Inactive doxycycline hyclate 100 mg tablet RxNorm: 003049 1 Tablet(s) PO BID 03/16/2016 03/22/2016 Inactive isosorbide mononitrate ER 30 mg tablet,extended release 24 hr RxNorm: 114303 1 Tablet(s) PO daily TAKE 1 TABLET BY MOUTH ONCE DAILY. 201509/11/2016 Inactive Diflucan 150 mg tablet RxNorm: 469131 1 Tablet(s) PO daily 03/03/2016 Inactive Diflucan 150 mg tablet RxNorm: 811275 1 Tablet(s) PO daily 03/08/2016 Inactive lisinopril 10 mg tablet RxNorm: 324859 Tablet(s) 1 tab(s) po daily 02/11/2016 12/23/2016 Inactive bupropion HCl XL 300 mg 24 hr tablet, extended release RxNorm: 349982 1 Tablet(s) PO daily 02/05/2016 12/23/2016 Inactive hydrocodone 10 mg-acetaminophen 325 mg tablet RxNorm: 309310 1 Tablet(s) PO Q4-6H as needed pain 01/31/2016 02/23/2016 Inactive [SAVINGS FOR NON-COVERED DRUGS -- BIN :798390, PCN: ASPROD1, Group: XXXXX, ID# [id number], Questions: . THIS IS NOT INSURANCE.] alprazolam 1 mg tablet RxNorm: 696000 1 Tablet(s) PO Q8 PRN as needed TAKE 1 TABLET THREE TIMES DAILY NEEDED FOR ANXIETY. 01/21/2016 06/21/2016 Inactive ( Appended: Controlled substance eRx refill - RxReferenceNumber: [id number]) buspirone 5 mg tablet RxNorm: 983917 1 Tablet(s) PO BID 201501/20/2016 Inactive betamethasone valerate 0.1 % topical ointment RxNorm: 770527 1 TOP TID on rash of hand and leg 01/14/2016 02/12/2016 Inactive hydrocodone 10 mg-acetaminophen 325 mg tablet RxNorm: 278683 1 Tablet(s) PO Q4-6H as needed pain 12/31/2015 01/23/2016 Inactive [SAVINGS FOR NON-COVERED DRUGS -- BIN :[id number], PCN: ASPROD1, Group: XXXXX, ID# [id number], Questions: . THIS IS NOT INSURANCE.] cyanocobalamin (vit B-12) 1,000 mcg/mL injection solution RxNorm: 877035 Milliliter(s) Inj 12/03/2015 12/03/2015 Inactive hydrocodone 10 mg-acetaminophen 325 mg tablet RxNorm: 257683 1 Tablet(s) PO Q4-6H as needed pain 11/20/2015 12/13/2015 Inactive [SAVINGS FOR NON-COVERED DRUGS -- BIN :485800, PCN: ASPROD1, Group: XXXXX, ID# [id number], Questions: . THIS IS NOT INSURANCE.] Lipitor 40 mg tablet RxNorm: 271139 1 Tablet(s) PO QHS TAKE 1 TABLET BY MOUTH ONCE DAILY. 10/29/2015 10/22/2016 Inactive pt to take 2 tabs of lipitor 20mg. She will call when ready to fill 40mg. hydrocodone 10 mg-acetaminophen 325 mg tablet RxNorm: 372067 1 Tablet(s) PO Q4-6H as needed pain 10/04/2015 11/19/2015 Inactive [SAVINGS FOR NON-COVERED DRUGS -- BIN :686131, PCN: ASPROD1, Group: XXXXX, ID# [id number], Questions: . THIS IS NOT INSURANCE.] alprazolam 1 mg tablet RxNorm: 237430 1 Tablet(s) PO Q8 PRN as needed TAKE 1 TABLET THREE TIMES DAILY NEEDED FOR ANXIETY. 09/25/2015 01/20/2016 Inactive ( Appended: Controlled substance eRx refill - RxReferenceNumber: [id number]) isosorbide mononitrate ER 30 mg tablet,extended release 24 hr RxNorm: 849830 1 Tablet(s) PO daily TAKE 1 TABLET BY MOUTH ONCE DAILY. 201503/15/2016 Inactive hydrocodone 10 mg-acetaminophen 325 mg tablet RxNorm: 762035 1 Tablet(s) PO Q4-6H as needed pain 07/02/2015 08/18/2015 Inactive [SAVINGS FOR NON-COVERED DRUGS -- BIN :[id number], PCN: ASPROD1, Group: XXXXX, ID# [id number], Questions: . THIS IS NOT INSURANCE.] omeprazole 20 mg tablet,delayed release RxNorm: 296205 1 Tablet(s) PO BID 06/25/2015 01/20/2016 Inactive [SAVINGS FOR UNINSURED PATIENTS -- BIN:359201, PCN: ASPROD1, Group: AME08, ID# [id number], Process claim through [employer], for questions: . THIS IS NOT INSURANCE.] gabapentin 100 mg capsule RxNorm: 770929 TAKE 1 CAPSULE BY MOUTH 3 TIMES DAILY * SCHEDULED PREVENTION MEDICINE* 06/25/2015 06/18/2016 Inactive Generic For:NEURONTIN 100MG 06/25/2015 9:18:27 AM N O T I C E Last quantity doesn't match original quantity hydrocodone 10 mg-acetaminophen 325 mg tablet RxNorm: 974538 1 Tablet(s) PO Q4-6H as needed pain 06/07/2015 06/30/2015 Inactive [SAVINGS FOR NON-COVERED DRUGS -- BIN :726315, PCN: ASPROD1, Group: XXXXX, ID# [id number], Questions: . THIS IS NOT INSURANCE.] Amitiza 8 mcg capsule RxNorm: 372836 1 Capsule(s) PO daily 05/0904/22/2016 Inactive cyanocobalamin (vit B-12) 1,000 mcg/mL injection solution RxNorm: 294442 Milliliter(s) Inj 04/12/2015 04/12/2015 Inactive alprazolam 1 mg tablet RxNorm: 793888 1 Tablet(s) PO Q8 PRN as needed TAKE 1 TABLET THREE TIMES DAILY NEEDED FOR ANXIETY. 04/12/2015 09/24/2015 Inactive ( Appended: Controlled substance eRx refill - RxReferenceNumber: [id number]) hydrocodone 10 mg-acetaminophen 325 mg tablet RxNorm: 410757 1 Tablet(s) PO Q4-6H as needed pain 04/09/2015 05/01/2015 Inactive [SAVINGS FOR NON-COVERED DRUGS -- BIN :709752, PCN: ASPROD1, Group: XXXXX, ID# [id number], Questions: . THIS IS NOT INSURANCE.] hydrocodone 10 mg-acetaminophen 325 mg tablet RxNorm: 488883 1 Tablet(s) PO Q4-6H as needed pain 03/12/2015 04/04/2015 Inactive [SAVINGS FOR NON-COVERED DRUGS -- BIN :525757, PCN: ASPROD1, Group: XXXXX, ID# [id number], Questions: . THIS IS NOT INSURANCE.] Anusol-HC 25 mg suppository RxNorm: 0097096 1 Suppository RTL QHS as needed 03/12/2015 04/10/2015 Inactive hydrocodone 10 mg-acetaminophen 325 mg tablet RxNorm: 664541 1 Tablet(s) PO Q4-6H as needed pain 02/08/2015 03/03/2015 Inactive [SAVINGS FOR NON-COVERED DRUGS -- BIN :408918, PCN: ASPROD1, Group: XXXXX, ID# [id number], Questions: . THIS IS NOT INSURANCE.] cyanocobalamin (vit B-12) 1,000 mcg/mL injection solution RxNorm: 211927 Milliliter(s) Inj 01/22/2015 01/22/2015 Inactive Vitamin D2 50,000 unit capsule RxNorm: 566588 1 Capsule(s) PO QW 01/10/2015 01/09/2015 Inactive Vitamin D2 50,000 unit capsule RxNorm: 271682 1 Capsule(s) PO QW 01/10/2015 04/09/2015 Inactive [SAVINGS FOR NON-COVERED DRUGS -- BIN:176787, PCN: ASPROD1, Group: XXXXX, ID# [id number], Questions: . THIS IS NOT INSURANCE.] Flonase 50 mcg/actuation nasal spray,suspension RxNorm: 8027088 1 [place] NASAL BID 01/09/2015 01/03/2016 Inactive [SAVINGS FOR UNINSURED PATIENTS -- BIN:351658, PCN: ASPROD1, Group: AME08, ID# [id number], Process claim through [employer], for questions: . THIS IS NOT INSURANCE.] Kenalog 40 mg/mL suspension for injection RxNorm: 4931556 1 Milliliter(s) Inj 01/08/2015 01/08/2015 Inactive Vitamin B-12 1,000 mcg/mL injection solution RxNorm: 287315 1 Milliliter(s) Inj 01/08/2015 01/08/2015 Inactive [SAVINGS FOR NON-COVERED DRUGS -- BIN:038804, PCN: ASPROD1, Group: XXXXX, ID# [id number], Questions: . THIS IS NOT INSURANCE.] bupropion HCl XL 300 mg 24 hr tablet, extended release RxNorm: 947823 1 Tablet(s) PO daily 01/08/2015 02/01/2016 Inactive this replaces the wellbutrin sr 150mg bid dose she currently has on file metoprolol tartrate 25 mg tablet RxNorm: 068794 1 Tablet(s) PO BID 12/17/2014 12/11/2015 Inactive hydrocodone 10 mg-acetaminophen 325 mg tablet RxNorm: 688086 1 Tablet(s) PO Q4-6H as needed pain 12/05/2014 12/28/2014 Inactive [SAVINGS FOR NON-COVERED DRUGS -- BIN :731569, PCN: ASPROD1, Group: XXXXX, ID# [id number], Questions: . THIS IS NOT INSURANCE.] cyanocobalamin (vit B-12) 1,000 mcg/mL injection solution RxNorm: 823745 Milliliter(s) Inj 11/28/2014 11/28/2014 Inactive [SAVINGS FOR NON-COVERED DRUGS -- BIN:792458, PCN: ASPROD1, Group: XXXXX, ID# [id number], Questions: [phone]. THIS IS NOT INSURANCE.] lisinopril 10 mg tablet RxNorm: 330733 1 tab(s) po daily 201402/10/2016 Inactive lisinopril 10 mg tablet RxNorm: 293755 1 Tablet(s) PO daily 11/04/2014 Inactive [SAVINGS FOR NON-COVERED DRUGS -- BIN:634822, PCN: ASPROD1, Group: XXXXX, ID# [id number], Questions: . THIS IS NOT INSURANCE.] alprazolam 1 mg tablet RxNorm: 631097 1 Tablet(s) PO Q8 PRN as needed TAKE 1 TABLET THREE TIMES DAILY NEEDED FOR ANXIETY. 10/31/2014 04/11/2015 Inactive ( Appended: Controlled substance eRx refill - RxReferenceNumber: [id number]) hydrocodone 10 mg-acetaminophen 325 mg tablet RxNorm: 048855 1 Tablet(s) PO Q4-6H as needed pain 10/31/2014 11/29/2014 Inactive [SAVINGS FOR NON-COVERED DRUGS -- BIN :616572, PCN: ASPROD1, Group: XXXXX, ID# [id number], Questions: . THIS IS NOT INSURANCE.] bupropion HCl XL 300 mg 24 hr tablet, extended release RxNorm: 226250 1 Tablet(s) PO daily 10/29/2014 01/07/2015 Inactive this replaces the wellbutrin sr 150mg bid dose she currently has on file cyanocobalamin (vit B-12) 1,000 mcg/mL injection solution RxNorm: 297615 Milliliter(s) Inj 10/04/2014 10/04/2014 Inactive [SAVINGS FOR UNINSURED PATIENTS - - BIN:757843, PCN: ASPROD1, Group: AME08, ID# [id number], Process claim through [employer], for questions: . THIS IS NOT INSURANCE.] hydrocodone 10 mg-acetaminophen 325 mg tablet RxNorm: 365113 1 Tablet(s) PO Q4-6H as needed pain 10/04/2014 10/30/2014 Inactive [SAVINGS FOR UNINSURED PATIENTS -- BIN:748762, PCN: ASPROD1, Group: AME08, ID# [id number], Process claim through [employer], for questions: . THIS IS NOT INSURANCE.] Flonase 50 mcg/actuation nasal spray,suspension RxNorm: 502029 1 [place] NASAL BID 10/04/2014 12/02/2014 Inactive [SAVINGS FOR UNINSURED PATIENTS -- BIN:133453, PCN: ASPROD1, Group: AME08, ID# [id number], Process claim through [employer], for questions: . THIS IS NOT INSURANCE.] hydrocodone 10 mg-acetaminophen 325 mg tablet RxNorm: 878572 1 Tablet(s) PO Q4-6H as needed pain 10/04/2014 11/02/2014 Inactive [SAVINGS FOR UNINSURED PATIENTS -- BIN:944012, PCN: ASPROD1, Group: AME08, ID# [id number], Process claim through [employer], for questions: . THIS IS NOT INSURANCE.] alprazolam 1 mg tablet RxNorm: 052262 1 Tablet(s) PO Q8 PRN as needed TAKE 1 TABLET THREE TIMES DAILY NEEDED FOR ANXIETY. 09/26/2014 10/30/2014 Inactive ( Appended: Controlled substance eRx refill - RxReferenceNumber: [id number]) cyanocobalamin (vit B-12) 1,000 mcg/mL injection solution RxNorm: 313209 Milliliter(s) Inj 09/10/2014 09/10/2014 Inactive [SAVINGS FOR UNINSURED PATIENTS - - BIN:335827, PCN: ASPROD1, Group: AME08, ID# [id number], Process claim through [employer], for questions: . THIS IS NOT INSURANCE.] omeprazole 20 mg tablet,delayed release RxNorm: 753187 1 Tablet(s) PO BID 09/10/2014 04/07/2015 Inactive [SAVINGS FOR UNINSURED PATIENTS -- BIN:524120, PCN: ASPROD1, Group: AME08, ID# [id number], Process claim through [employer], for questions: . THIS IS NOT INSURANCE.] hydrocodone 10 mg-acetaminophen 325 mg tablet RxNorm: 114771 1 Tablet(s) PO Q4-6H as needed pain 09/03/2014 10/02/2014 Inactive [SAVINGS FOR UNINSURED PATIENTS -- BIN:358043, PCN: ASPROD1, Group: AME08, ID# [id number], Process claim through [employer], for questions: . THIS IS NOT INSURANCE.] cyanocobalamin (vit B-12) 1,000 mcg/mL injection solution RxNorm: 918433 Milliliter(s) Inj 08/06/2014 08/06/2014 Inactive [SAVINGS FOR UNINSURED PATIENTS - - BIN:446618, PCN: ASPROD1, Group: AME08, ID# [id number], Process claim through [employer], for questions: . THIS IS NOT INSURANCE.] prednisone 20 mg tablet RxNorm: 577066 3 Tablet(s) PO daily 08/10/2014 Inactive hydrocodone 10 mg-acetaminophen 325 mg tablet RxNorm: 803360 1 Tablet(s) PO Q4-6H as needed pain 07/12/2014 08/10/2014 Inactive [SAVINGS FOR UNINSURED PATIENTS -- BIN:846762, PCN: ASPROD1, Group: AME08, ID# [id number], Process claim through [employer], for questions: . THIS IS NOT INSURANCE.] alprazolam 1 mg tablet RxNorm: 667902 1 Tablet(s) PO Q8 PRN as needed TAKE 1 TABLET THREE TIMES DAILY NEEDED FOR ANXIETY. 07/12/2014 09/25/2014 Inactive ( Appended: Controlled substance eRx refill - RxReferenceNumber: [id number]) cyanocobalamin (vit B-12) 1,000 mcg/mL injection solution RxNorm: 924795 Milliliter(s) Inj 07/12/2014 07/12/2014 Inactive [SAVINGS FOR UNINSURED PATIENTS - - BIN:320899, PCN: ASPROD1, Group: AME08, ID# [id number], Process claim through [employer], for questions: . THIS IS NOT INSURANCE.] hydrocodone 10 mg-acetaminophen 325 mg tablet RxNorm: 502917 1 Tablet(s) PO Q4-6H as needed pain 06/28/2014 07/11/2014 Inactive [SAVINGS FOR UNINSURED PATIENTS -- BIN:087977, PCN: ASPROD1, Group: AME08, ID# [id number], Process claim through [employer], for questions: . THIS IS NOT INSURANCE.] cyanocobalamin (vit B-12) 1,000 mcg/mL injection solution RxNorm: 786708 1 Milliliter(s) Inj 06/28/2014 06/28/2014 Inactive [SAVINGS FOR UNINSURED PATIENTS - - BIN:063204, PCN: ASPROD1, Group: AME08, ID# [id number], Process claim through [employer], for questions: . THIS IS NOT INSURANCE.] cyanocobalamin (vit B-12) 1,000 mcg/mL injection solution RxNorm: 167802 Milliliter(s) Inj 06/14/2014 06/14/2014 Inactive [SAVINGS FOR UNINSURED PATIENTS - - BIN:620756, PCN: ASPROD1, Group: AME08, ID# [id number], Process claim through [employer], for questions: . THIS IS NOT INSURANCE.] cyanocobalamin (vit B-12) 1,000 mcg/mL injection solution RxNorm: 275417 Milliliter(s) Inj 05/31/2014 05/31/2014 Inactive [SAVINGS FOR UNINSURED PATIENTS - - BIN:586722, PCN: ASPROD1, Group: AME08, ID# [id number], Process claim through [employer], for questions: . THIS IS NOT INSURANCE.] cyanocobalamin (vit B-12) 1,000 mcg/mL injection solution RxNorm: 468293 Milliliter(s) Inj 05/16/2014 05/16/2014 Inactive [SAVINGS FOR UNINSURED PATIENTS - - BIN:530447, PCN: ASPROD1, Group: AME08, ID# [id number], Process claim through [employer]Imp[employer], for questions: . THIS IS NOT INSURANCE.] trazodone 50 mg tablet RxNorm: 557599 1 Tablet(s) PO QPM 201308/05/2014 Inactive [SAVINGS FOR UNINSURED PATIENTS -- BIN:206619, PCN: ASPJOHANNA1, Group: AME08, ID # [id number], Process claim through [employer]Imp[employer], for questions: . THIS IS NOT INSURANCE.] alprazolam 1 mg tablet RxNorm: 741856 1 Tablet(s) PO Q8 PRN as needed TAKE 1 TABLET THREE TIMES DAILY NEEDED FOR ANXIETY. 04/27/2014 07/11/2014 Inactive ( Appended: Controlled substance eRx refill - RxReferenceNumber: [id number]) cyanocobalamin (vit B-12) 1,000 mcg/mL injection solution RxNorm: 410505 1 Milliliter(s) Inj 04/05/2014 04/05/2014 Inactive [SAVINGS FOR UNINSURED PATIENTS - - BIN:709004, PCN: ASPROD1, Group: AME08, ID# [id number], Process claim through [employer], for questions: . THIS IS NOT INSURANCE.] gabapentin 100 mg capsule RxNorm: 374879 TAKE 1 CAPSULE BY MOUTH 3 TIMES DAILY * SCHEDULED PREVENTION MEDICINE* 03/29/2014 03/23/2015 Inactive Generic For:NEURONTIN 100MG 03/29/2014 3:08:32 PM N O T I C E Last dispense quantity was less than original quantity written hydrocodone 10 mg-acetaminophen 325 mg tablet RxNorm: 744358 1 Tablet(s) PO Q4-6H as needed pain 03/05/2014 06/27/2014 Inactive [SAVINGS FOR UNINSURED PATIENTS -- BIN:594600, PCN: ASPJOHANNA1, Group: AME08, ID# [id number], Process claim through [employer]Imp[employer], for questions: . THIS IS NOT INSURANCE.] bupropion HCl XL 300 mg 24 hr tablet, extended release RxNorm: 880352 1 Tablet(s) PO daily 03/05/2014 10/28/2014 Inactive this replaces the wellbutrin sr 150mg bid dose she currently has on file cyanocobalamin (vit B-12) 1,000 mcg/mL injection solution RxNorm: 574361 Milliliter(s) Inj 02/01/2014 02/01/2014 Inactive betamethasone valerate 0.1 % topical cream RxNorm: 351519 1 Application TOP BID 02/01/2014 02/01/2014 Inactive lisinopril 10 mg tablet RxNorm: 787493 1 Tablet(s) PO daily 07/201403/02/2014 Inactive Diflucan 150 mg tablet RxNorm: 640129 1 Tablet(s) PO every other day 01/22/2014 02/04/2014 Inactive doxycycline hyclate 100 mg tablet RxNorm: 253616 1 Tablet(s) PO BID 12/29/2013 12/28/2013 Inactive cyanocobalamin (vit B-12) 1,000 mcg/mL injection solution RxNorm: 688406 Milliliter(s) Inj 12/29/2013 12/29/2013 Inactive doxycycline hyclate 100 mg tablet RxNorm: 319419 1 Tablet(s) PO BID 12/29/2013 01/04/2014 Inactive metoprolol tartrate 25 mg tablet RxNorm: 387931 1 Tablet(s) PO BID 12/14/2013 12/08/2014 Inactive trimethoprim 0.1 %-polymyxin B 10,000 unit/mL eye drops RxNorm: 369604 2 Drop(s) OPH TID right eye 12/07/2013 12/13/2013 Inactive nystatin-triamcinolone 100,000 unit/g-0.1 % topical cream RxNorm: 7075443 1 TOP BID 12/07/2013 12/16/2013 Inactive Lipitor 20 mg tablet RxNorm: 272134 1 Tablet(s) PO QHS TAKE 1 TABLET BY MOUTH ONCE DAILY. 11/30/2013 11/24/2014 Inactive Lipitor 20 mg tablet RxNorm: 538774 1 Tablet(s) PO QHS TAKE 1 TABLET BY MOUTH ONCE DAILY. 11/30/2013 11/29/2013 Inactive hydrocodone 10 mg-acetaminophen 325 mg tablet RxNorm: 592379 1 Tablet(s) PO Q6 PRN 11/24/2013 No Stop Date Active Carafate 1 gram tablet RxNorm: 672558 1 Tablet(s) PO QID TAKE 1 TABLET BY MOUTH 4 TIMES DAILY. 10/09/2013 04/22/2016 Inactive alprazolam 1 mg tablet RxNorm: 672709 1 Tablet(s) PO Q8 PRN TAKE 1 TABLET THREE TIMES DAILY NEEDED FOR ANXIETY. 10/09/2013 No Stop Date Active (Appended: Controlled substance eRx refill - RxReferenceNumber: [id number]) isosorbide mononitrate ER 30 mg tablet,extended release 24 hr RxNorm: 293678 1 Tablet(s) PO daily TAKE 1 TABLET BY MOUTH ONCE DAILY. 201304/29/2014 Inactive hydrocodone 10 mg-acetaminophen 325 mg tablet RxNorm: 363502 Tablet(s) PO 09/04/2013 No Stop Date Active bupropion HCl XL 150 mg 24 hr tablet, extended release RxNorm: 648612 1 Tablet(s) PO daily 09/04/2013 03/04/2014 Inactive this replaces the wellbutrin sr 150mg bid dose she currently has on file Lipitor 20 mg tablet RxNorm: 801982 Tablet(s) PO TAKE 1 TABLET BY MOUTH ONCE DAILY. 08/21/2013 11/29/2013 Inactive hydrocodone 5 mg-acetaminophen 325 mg tablet RxNorm: 7756532 1 Tablet(s) PO Q6 PRN 08/11/2013 No Stop Date Active Lipitor 20 mg tablet RxNorm: 138541 Tablet(s) PO TAKE 1 TABLET BY MOUTH ONCE DAILY. 08/10/2013 08/20/2013 Inactive alprazolam 1 mg tablet RxNorm: 507955 1 Tablet(s) PO Q8 PRN TAKE 1 TABLET THREE TIMES DAILY NEEDED FOR ANXIETY. 08/10/2013 No Stop Date Active (Appended: Controlled substance eRx refill - RxReferenceNumber: [id number]) Lipitor 20 mg tablet RxNorm: 464919 Tablet(s) PO TAKE 1 TABLET BY MOUTH ONCE DAILY. 07/17/2013 08/09/2013 Inactive Lipitor 20 mg tablet RxNorm: 001297 1 Tablet(s) PO QPM TAKE 1 TABLET BY MOUTH ONCE DAILY. 07/05/2013 07/16/2013 Inactive Lipitor 20 mg tablet RxNorm: 810446 Tablet(s) PO TAKE 1 TABLET BY MOUTH ONCE DAILY. 06/19/2013 07/04/2013 Inactive Carafate 1 gram tablet RxNorm: 538033 Tablet(s) PO TAKE 1 TABLET BY MOUTH 4 TIMES DAILY. 06/16/2013 10/08/2013 Inactive isosorbide mononitrate ER 30 mg tablet,extended release 24 hr RxNorm: 825817 Tablet (s) PO TAKE 1 TABLET BY MOUTH ONCE DAILY. 06/16/2013 10/01/2013 Inactive hydrocodone 10 mg-acetaminophen 325 mg tablet RxNorm: 165688 Tablet(s) PO 05/18/2013 No Stop Date Active Lipitor 20 mg tablet RxNorm: 801914 Tablet(s) PO TAKE 1 TABLET BY MOUTH ONCE DAILY. 04/27/2013 06/18/2013 Inactive ketorolac 60 mg/2 mL IM RxNorm: 278573 1 Milliliter(s) IM 04/1804/18/2013 Inactive hydrocodone 10 mg-acetaminophen 325 mg tablet RxNorm: 0509780 Tablet(s) PO 04/10/2013 No Stop Date Active hydrocodone 5 mg-acetaminophen 325 mg tablet RxNorm: 5643600 1 Tablet(s) PO Q6 PRN 04/10/2013 No Stop Date Active alprazolam 1 mg tablet RxNorm: 721600 1 Tablet(s) PO Q8 PRN TAKE 1 TABLET THREE TIMES DAILY NEEDED FOR ANXIETY. 03/16/2013 No Stop Date Active (Appended: Controlled substance eRx refill - RxReferenceNumber: [id number]) metoprolol tartrate 25 mg tablet RxNorm: 086956 1 Tablet(s) PO BID 03/16/2013 10/11/2013 Inactive citalopram 40 mg tablet RxNorm: 861246 1 Tablet(s) PO QPM 03/1603/09/2014 Inactive hydrocodone 5 mg-acetaminophen 325 mg tablet RxNorm: 2644025 1 Tablet(s) PO Q6 PRN 01/26/2013 No Stop Date Active doxycycline hyclate 100 mg tablet,delayed release RxNorm: 162445 1 Tablet(s) PO BID 01/26/2013 02/08/2013 Inactive Diflucan 150 mg tablet RxNorm: 083387 1 Tablet(s) PO daily 01/201302/04/2013 Inactive gabapentin 100 mg capsule RxNorm: 543759 Capsule(s) PO TAKE (1) CAPSULE BY MOUTH THREE TIMES DAILY. 01/19/2013 07/13/2016 Inactive gabapentin 100 mg capsule RxNorm: 590805 Capsule(s) PO TAKE (1) CAPSULE BY MOUTH THREE TIMES DAILY. 01/19/2013 03/28/2014 Inactive prednisone 10 mg tablets in a dose pack RxNorm: 449668 Tablet(s) PO 12/27/2012 01/01/2013 Inactive Bactroban 2 % Topical Ointment RxNorm: 065498 1 Application TOP BID 12/27/2012 01/02/2013 Inactive gabapentin 100 mg capsule RxNorm: 356340 1 Capsule(s) PO TID 01/18/2013 Inactive TAKE 1 CAPSULE BY MOUTH 3 TIMES DAILY (SCHEDULED) Lipitor 20 mg tablet RxNorm: 825770 Tablet(s) PO TAKE 1 TABLET BY MOUTH ONCE DAILY. 11/17/2012 04/26/2013 Inactive citalopram 40 mg tablet RxNorm: 159464 1 Tablet(s) PO daily 03/15/2013 Inactive citalopram 40 mg tablet RxNorm: 067847 1 Tablet(s) PO daily 11/13/2012 Inactive alprazolam 1 mg tablet RxNorm: 278264 Tablet(s) PO TAKE 1 TABLET THREE TIMES DAILY NEEDED FOR ANXIETY. 10/04/2012 Inactive (Appended: Controlled substance eRx refill - RxReferenceNumber: [id number]) bupropion HCl XL 300 mg 24 hr tablet, extended release RxNorm: 273836 1 Tablet(s) PO daily 09/21/2012 09/03/2013 Inactive this replaces the wellbutrin sr 150mg bid dose she currently has on file hydrocodone 5 mg-acetaminophen 325 mg tablet RxNorm: 1946104 1 Tablet(s) PO Q6 PRN 09/08/2012 09/07/2012 Inactive hydrocodone-acetaminophen 5 mg-325 mg tablet RxNorm: 8124638 1 Tablet(s) PO Q6 PRN 09/08/2012 No Stop Date Active Wellbutrin SR 150 mg tablet,sustained-release RxNorm: 912862 Tablet(s) PO TAKE 1 TABLET BY MOUTH TWICE DAILY. 09/01/2012 Inactive clindamycin 300 mg capsule RxNorm: 364533 1 Capsule(s) PO BID 08/02/2012 08/15/2012 Inactive hydrocodone-acetaminophen 5 mg-325 mg tablet RxNorm: 0722770 1 Tablet(s) PO Q6 PRN 08/02/2012 09/07/2012 Inactive metronidazole 500 mg tablet RxNorm: 783762 1 Tablet(s) PO TID 08/02/2012 08/15/2012 Inactive Kenalog 40 mg/mL Susp for Injection RxNorm: 0626531 Milliliter(s) Inj 06/27/2012 06/27/2012 Inactive prednisone 10 mg tablets in a dose pack RxNorm: 676681 1 Tablet(s) PO as directed 06/27/2012 07/06/2012 Inactive alprazolam 1 mg tablet RxNorm: 710688 Tablet(s) PO 06/10/2012 10/04/2012 Inactive TAKE 1 TABLET THREE TIMES DAILY NEEDED FOR ANXIETY. (Appended: Controlled substance eRx refill - RxReferenceNumber: [id number]) Kenalog 40 mg/mL Susp for Injection RxNorm: 1323783 1 Milliliter(s) Inj 06/06/2012 06/06/2012 Inactive Voltaren 1 % Topical Gel RxNorm: 322760 1 Application TOP QID apply two grams to right elbow, 4 grams to right shoulder and neck, and 4 grams to sacroiliac joint 4 times daily 06/06/2012 06/05/2012 Inactive Voltaren 1 % Topical Gel RxNorm: 241994 1 Application TOP QID apply two grams to right elbow, 4 grams to right shoulder and neck, and 4 grams to sacroiliac joint 4 times daily 06/06/2012 08/31/2016 Inactive alprazolam 1 mg tablet RxNorm: 531780 Tablet(s) PO 06/06/2012 06/09/2012 Inactive TAKE 1 TABLET THREE TIMES DAILY NEEDED FOR ANXIETY. (Appended: Controlled substance eRx refill - RxReferenceNumber: [id number]) alprazolam 1 mg tablet RxNorm: 942760 Tablet(s) PO 06/01/2012 06/06/2012 Inactive TAKE 1 TABLET THREE TIMES DAILY NEEDED FOR ANXIETY. (Appended: Controlled substance eRx refill - RxReferenceNumber: [id number]) hydrocodone-acetaminophen 5 mg-325 mg tablet RxNorm: 0116449 1 Tablet(s) PO Q6 PRN 05/16/2012 08/01/2012 Inactive isosorbide mononitrate ER 30 mg tablet,extended release 24 hr RxNorm: 484361 Tablet (s) PO 03/14/2012 06/15/2013 Inactive TAKE 1 TABLET BY MOUTH ONCE DAILY. Lipitor 20 mg tablet RxNorm: 615603 Tablet(s) PO 03/14/2012 11/16/2012 Inactive TAKE 1 TABLET BY MOUTH ONCE DAILY. gabapentin 100 mg Cap RxNorm: 385652 Capsule(s) PO 03/03/2012 03/02/2012 Inactive TAKE 1 CAPSULE BY MOUTH 3 TIMES DAILY (SCHEDULED) isosorbide mononitrate ER 30 mg tablet,extended release 24 hr RxNorm: 990234 1 Tablet(s) PO daily 03/03/2012 No Stop Date Active gabapentin 100 mg capsule RxNorm: 032399 Capsule(s) PO 201112/18/2012 Inactive TAKE 1 CAPSULE BY MOUTH 3 TIMES DAILY (SCHEDULED) Celexa 20 mg Tab RxNorm: 037739 1 Tablet(s) PO daily 201111/14/2012 Inactive Vitamin B-12 1,000 mcg/mL Injection RxNorm: 521682 Milliliter(s) Inj 02/08/2012 02/08/2012 Inactive Wellbutrin SR 150 mg tablet,sustained-release RxNorm: 881146 1 Tablet(s) PO daily 02/08/2012 09/20/2012 Inactive Rocephin 500 mg Solution for Injection RxNorm: 373918 Inj 01/3102/01/2012 Inactive cefdinir 300 mg Cap RxNorm: 498207 1 Capsule(s) PO BID 201102/29/2012 Inactive triamcinolone acetonide 0.1 % Dental Paste RxNorm: 9346384 1 Application Carbon QID 01/22/2012 01/28/2012 Inactive alprazolam 1 mg tablet RxNorm: 884191 1 Tablet(s) PO TID PRN 06/01/2012 Inactive alprazolam 1 mg Tab RxNorm: 656666 1 Tablet(s) PO TID PRN 01/10/2012 Inactive Carafate 1 gram tablet RxNorm: 495890 1 Tablet(s) PO QID 201112/04/2012 Inactive hydrocodone-acetaminophen 5 mg-325 mg Tab RxNorm: 4893949 1-2 Tablet(s) PO Q6 PRN 11/13/2011 12/12/2011 Inactive Kenalog 40 mg/mL Susp for Injection RxNorm: 0792634 1 Milliliter(s) Inj 10/20/2011 10/20/2011 Inactive Bactrim DS 800 mg-160 mg Tab RxNorm: 354036 1 Tablet(s) PO BID 10/19/2011 02/29/2012 Inactive alprazolam 1 mg Tab RxNorm: 056862 1 Tablet(s) PO TID PRN 11/17/2011 Inactive hydrocodone-acetaminophen 5 mg-325 mg Tab RxNorm: 2875211 1-2 Tablet(s) PO Q6 PRN 10/15/2011 11/12/2011 Inactive hydrocodone-acetaminophen 5 mg-325 mg Tab RxNorm: 4166251 1-2 Tablet(s) PO Q6 PRN 09/24/2011 10/14/2011 Inactive citalopram 40 mg Tab RxNorm: 692793 1 Tablet(s) PO daily 201102/29/2012 Inactive alprazolam 1 mg Tab RxNorm: 427339 1 Tablet(s) PO TID PRN 10/201110/18/2011 Inactive Wellbutrin SR 150 mg Tab RxNorm: 440463 1 Tablet(s) PO BID 10/201102/07/2012 Inactive Wellbutrin SR 150 mg tablet,sustained-release RxNorm: 718132 1 Tablet(s) PO BID 08/25/2011 02/01/2012 Inactive Lipitor 20 mg tablet RxNorm: 354015 1 Tablet(s) PO daily 201002/14/2012 Inactive Percocet 10 mg-325 mg Tab RxNorm: 5970492 1 Tablet(s) PO Q6 PRN 08/13/2011 02/29/2012 Inactive hydrocodone-acetaminophen 5 mg-325 mg Tab RxNorm: 7122886 1-2 Tablet(s) PO Q6 PRN 08/04/2011 09/23/2011 Inactive naproxen 500 mg tablet RxNorm: 979847 1 Tablet(s) PO BID 201001/25/2012 Inactive hydrochlorothiazide 25 mg Tab RxNorm: 518313 1 Tablet(s) PO daily 07/28/2011 01/23/2012 Inactive ketorolac 60 mg/2 mL IM RxNorm: 302446 Milliliter(s) IM 201007/15/2011 Inactive ketorolac 60 mg/2 mL IM RxNorm: 502861 Milliliter(s) IM 201007/02/2011 Inactive ketorolac 15 mg/mL Injection RxNorm: 818423 1 Milliliter(s) Inj 06/24/2011 07/02/2011 Inactive hydrocodone-acetaminophen 5 mg-325 mg Tab RxNorm: 4287310 1-2 Tablet(s) PO Q6 PRN 06/16/2011 08/03/2011 Inactive gabapentin 100 mg Cap RxNorm: 245498 1 Capsule(s) PO TID 201002/01/2012 Inactive lisinopril 10 mg tablet RxNorm: 417139 1 Tablet(s) PO daily 01/25/2012 Inactive alprazolam 1 mg Tab RxNorm: 176409 1 Tablet(s) PO TID PRN 08/24/2011 Inactive Mobic 15 mg Tab RxNorm : 522549 1 Tablet(s) PO daily 05/08/2011 02/01/2012 Inactive triamcinolone acetonide 0.5 % topical cream RxNorm: 7522839 TOP BID No Start Date Active Lipitor 10 mg Tab RxNorm: 766400 1 Tablet(s) PO daily No Start Date 02/01/2012 Inactive citalopram 40 mg Tab RxNorm: 035679 1 Tablet(s) PO daily No Start Date 02/01/2012 Inactive colestipol 1 gram Tab RxNorm: 1153621 1 Tablet(s) PO daily No Start Date 01/31/2012 Inactive hydrocodone-acetaminophen 5 mg-325 mg tablet RxNorm: 8795657 1 Tablet(s) PO PRN 1 tab q6hrs prn No Start Date 05/15/2012 Inactive lisinopril 10 mg Tab RxNorm: 527249 1 Tablet(s) PO daily No Start Date 06/15/2011 Inactive metoprolol succinate ER 25 mg 24 hr Tab RxNorm: 466534 1 Tablet(s) PO daily No Start Date 02/01/2012 Inactive hydrocodone-acetaminophen 5 mg-325 mg Tab RxNorm: 8074687 1 Tablet(s) PO Q6 PRN No Start Date 06/15/2011 Inactive hydrocodone 10 mg-acetaminophen 325 mg tablet RxNorm: 8669784 Tablet(s) PO No Start Date 04/10/2013 Inactive aspirin, buffered 81 mg Tab RxNorm: 921552 1 Tablet(s) PO daily No Start Date 04/16/2011 Inactive citalopram 40 mg Tab RxNorm: 879908 1 Tablet(s) PO daily No Start Date 02/01/2012 Inactive aspirin 81 mg Cap, Delayed Release RxNorm: 711801 1 Capsule(s) PO daily No Start Date 08/31/2016 Inactive isosorbide mononitrate ER 30 mg 24 hr Tab RxNorm: 301794 1 Tablet(s) PO daily No Start Date 02/01/2012 Inactive Fish Oil 1,000 mg Cap RxNorm: 1 Capsule(s) PO daily No Start Date 08/31/2016 Inactive prednisone 10 mg Tab RxNorm: 696727 1 Tablet(s) PO as doctor directed 6 po daily x 2days, then 4 daily x 2days, then2 daily x 2days, then 1 daily x 2days, then 1 /2 dailyx 4 d No Start Date 02/01/2012 Inactive alprazolam 1 mg Tab RxNorm: 062074 1 Tablet(s) PO TID PRN No Start Date 06/15/2011 Inactive Diflucan 150 mg tablet RxNorm: 600365 1 Tablet(s) PO every other day No Start Date 01/21/2014 Inactive betamethasone, augmented 0.05 % Topical Cream RxNorm: 731534 1 Application TOP No Start Date 02/01/2012 Inactive Carafate 1 gram Tab RxNorm: 246937 1 Tablet(s) PO AC & HS No Start Date 02/01/2012 Inactive Lyrica 50 mg Cap RxNorm: 899613 1 Capsule(s) PO TID No Start Date 02/01/2012 Inactive Fish Oil Oral RxNorm: Oral No Start Date Inactive Carafate 1 gram Tab RxNorm: 523980 1 Gram(s) PO AC & HS 1gm before meals and at bedtime No Start Date 02/01/2012 Inactive Zofran 4 mg tablet RxNorm: 057093 1 Tablet(s) PO TID as needed No Start Date 02/25/2017 Inactive metoprolol tartrate 25 mg tablet RxNorm: 135307 1 Tablet(s) PO daily No Start Date 03/15/2013 Inactive colestipol 1 gram Tab RxNorm: 8339945 1 Gram(s) PO daily No Start Date 08/31/2016 Inactive hydrochlorothiazide 25 mg Tab RxNorm: 755988 1 Tablet(s) PO daily No Start Date 01/25/2012 Inactive acyclovir 400 mg Tab RxNorm: 304931 1 Tablet(s) PO QID QID x 10 days then BID No Start Date 02/01/2012 Inactive Mobic 15 mg Tab RxNorm : 205296 1 Tablet(s) PO daily No Start Date 05/07/2011 Inactive hydrochlorothiazide 25 mg Tab RxNorm: 104605 1 Tablet(s) PO daily No Start Date 07/27/2011 Inactive isosorbide mononitrate ER 30 mg 24 hr Tab RxNorm: 803453 1 Tablet(s) PO daily No Start Date 01/31/2012 Inactive Lipitor 10 mg Tab RxNorm: 038303 1 Tablet(s) PO daily No Start Date 08/18/2011 Inactive alprazolam 1 mg Tab RxNorm: 777748 1 Tablet(s) PO PRN 1mg tid prn No Start Date 06/15/2011 Inactive Wellbutrin SR 150 mg Tab RxNorm: 438056 1 Tablet(s) PO BID No Start Date 02/01/2012 Inactive Medication Administered Medication Codes Instructions Start Date Status cyanocobalamin (vit B-12) 1,000 mcg/mL injection solution RxNorm: 652749 1Milliliter 05/27/2017 No longer Active cyanocobalamin (vit B-12) 1,000 mcg/mL injection solution RxNorm: 657956 1Milliliter 04/27/2017 No longer Active cyanocobalamin (vit B-12) 1,000 mcg/mL injection solution RxNorm: 939801 1Milliliter 04/09/2017 No longer Active cyanocobalamin (vit B-12) 1,000 mcg/mL injection solution RxNorm: 334967 Milliliter 03/23/2017 No longer Active cyanocobalamin (vit B-12) 1,000 mcg/mL injection solution RxNorm: 995713 Milliliter 03/11/2017 No longer Active Kenalog 40 mg/mL suspension for injection RxNorm: 1452035 1Milliliter 02/22/2017 No longer Active cyanocobalamin (vit B-12) 1,000 mcg/mL injection solution RxNorm: 623959 1Milliliter 10/14/2016 No longer Active cyanocobalamin (vit B-12) 1,000 mcg/mL injection solution RxNorm: 429465 Milliliter 09/16/2016 No longer Active cyanocobalamin (vit B-12) 1,000 mcg/mL injection solution RxNorm: 779762 1Milliliter 08/11/2016 No longer Active cyanocobalamin (vit B-12) 1,000 mcg/mL injection solution RxNorm: 227290 Milliliter 12/03/2015 No longer Active cyanocobalamin (vit B-12) 1,000 mcg/mL injection solution RxNorm: 934513 Milliliter 04/12/2015 No longer Active cyanocobalamin (vit B-12) 1,000 mcg/mL injection solution RxNorm: 606852 Milliliter 01/22/2015 No longer Active Vitamin B-12 1,000 mcg/mL injection solution RxNorm: 510488 1Milliliter 01/08/2015 No longer Active Kenalog 40 mg/mL suspension for injection RxNorm: 7087346 1Milliliter 01/08/2015 No longer Active cyanocobalamin (vit B-12) 1,000 mcg/mL injection solution RxNorm: 260088 Milliliter 11/28/2014 No longer Active cyanocobalamin (vit B-12) 1,000 mcg/mL injection solution RxNorm: 006025 Milliliter 10/04/2014 No longer Active cyanocobalamin (vit B-12) 1,000 mcg/mL injection solution RxNorm: 091451 Milliliter 09/10/2014 No longer Active cyanocobalamin (vit B-12) 1,000 mcg/mL injection solution RxNorm: 787667 Milliliter 08/06/2014 No longer Active cyanocobalamin (vit B-12) 1,000 mcg/mL injection solution RxNorm: 606113 Milliliter 07/12/2014 No longer Active cyanocobalamin (vit B-12) 1,000 mcg/mL injection solution RxNorm: 988068 1Milliliter 06/28/2014 No longer Active cyanocobalamin (vit B-12) 1,000 mcg/mL injection solution RxNorm: 569238 Milliliter 06/14/2014 No longer Active cyanocobalamin (vit B-12) 1,000 mcg/mL injection solution RxNorm: 623397 Milliliter 05/31/2014 No longer Active cyanocobalamin (vit B-12) 1,000 mcg/mL injection solution RxNorm: 487519 Milliliter 05/16/2014 No longer Active cyanocobalamin (vit B-12) 1,000 mcg/mL injection solution RxNorm: 984026 1Milliliter 04/05/2014 No longer Active cyanocobalamin (vit B-12) 1,000 mcg/mL injection solution RxNorm: 793276 Milliliter 02/01/2014 No longer Active cyanocobalamin (vit B-12) 1,000 mcg/mL injection solution RxNorm: 827429 Milliliter 12/29/2013 No longer Active ketorolac 60 mg/2 mL IM RxNorm: 206765 1Milliliter 04/18/2013 No longer Active Kenalog 40 mg/mL Susp for Injection RxNorm: 9748926 Milliliter 06/27/2012 No longer Active Kenalog 40 mg/mL Susp for Injection RxNorm: 1265979 1Milliliter 06/06/2012 No longer Active Vitamin B-12 1,000 mcg/mL Injection RxNorm: 455626 Milliliter 02/08/2012 No longer Active Rocephin 500 mg Solution for Injection RxNorm: 967261 02/01/2012 No longer Active Kenalog 40 mg/mL Susp for Injection RxNorm: 4308950 1Milliliter 10/20/2011 No longer Active ketorolac 60 mg/2 mL IM RxNorm: 412503 Milliliter 07/15/2011 No longer Active ketorolac 60 mg/2 mL IM RxNorm: 619930 Milliliter 07/02/2011 No longer Active Immunizations Vaccine Codes Date Status Influenza CVX: 141 05/27/2017 completed Influenza CVX: 141 04/23/2016 completed Pneumococcal CVX: 33 08/06/2014 completed Pneumococcal (Adult) CVX: 33 08/06/2014 completed Influenza CVX: 141 05/16/2014 completed Assessments Condition Codes Effective Dates Essential (primary) hypertension ICD-10: I10 ICD-9: 401.9 09/09/2017 Chronic pain syndrome ICD-10: G89.4 ICD-9: 338.4 09/03/2017 Essential (primary) hypertension ICD-10: I10 ICD-9: 401.1 09/03/2017 Other idiopathic peripheral autonomic neuropathy ICD-10: G90.09 ICD-9: 337.00 05/27/2017 Major depressive disorder, recurrent, moderate ICD-10: F33.1 ICD-9: 296.32 05/27/2017 Encounter for immunization ICD-10: Z23 ICD-9: V04.81 05/27/2017 Vitamin B12 deficiency anemia due to intrinsic factor deficiency ICD-10: D51.0 ICD-9: 281.0 05/27/2017 Vitamin B12 deficiency anemia, unspecified ICD-10: D51.9 ICD-9: 266.2 04/27/2017 Other specified polyneuropathies ICD-10: G62.89 ICD-9: 356.9 03/09/2017 Allergic rhinitis due to pollen ICD-10: J30.1 ICD-9: 477.0 02/22/2017 Dysuria ICD-10: R30.0 ICD-9: 788.1 02/22/2017 Elevated erythrocyte sedimentation rate ICD-10: R70.0 ICD-9: 790.1 12/28/2016 Encounter for general adult medical examination with abnormal findings ICD-10: Z00.01 ICD-9: V70.0 12/28/2016 Urinary tract infection, site not specified ICD-10: N39.0 ICD-9: 599.0 12/24/2016 Other vitamin B12 deficiency anemias ICD-10: D51.8 ICD-9: 281.1 10/14/2016 Allergic urticaria ICD-10: L50.0 ICD-9: 708.0 10/06/2016 Generalized anxiety disorder ICD-10: F41.1 ICD-9: 300.02 10/01/2016 Displaced fracture of fifth metatarsal bone, left foot, initial encounter for closed fracture ICD-10: S92.352A ICD-9: 825.25 09/01/2016 Anemia, unspecified ICD-10: D64.9 ICD-9: 285.9 08/11/2016 Vitamin D deficiency, unspecified ICD-10: E55.9 ICD-9: 268.9 08/11/2016 Rash and other nonspecific skin eruption ICD-10: R21 ICD-9: 782.1 07/01/2016 Other specified dermatitis ICD-10: L30.8 ICD-9: 705.81 01/14/2016 Encounter for follow-up examination after completed treatment for conditions other than malignant neoplasm ICD-10: Z09 ICD-9: V67.9 12/03/2015 Family history of malignant neoplasm of digestive organs ICD -10: Z80.0 ICD-9: V16.0 12/03/2015 Gastro-esophageal reflux disease without esophagitis ICD-10 : K21.9 ICD-9: 530.81 10/10/2015 Mixed hyperlipidemia ICD-10: E78.2 ICD-9: 272.4 10/10/2015 Pain in right shoulder ICD-10: M25.511 ICD-9: 729.1 08/28/2015 Other constipation ICD-10: K59.09 ICD-9: 564.09 06/12/2015 Frequency of micturition ICD-10: R35.0 ICD-9: 788.41 06/12/2015 OTHER CONSTIPATION ICD-9: 564.09 2014 ESSENTIAL HYPERTENSION ICD-9: 401.9 05/09 Anxiety, generalized ICD-9: 300.02 2014 Peripheral neuropathy ICD-9: 356.9 2014 Vitamin D deficiency ICD-9: 268.9 2014 Abdominal pain ICD-9: 789.00 04/12/2015 Vitamin B 12 deficiency ICD-9: 266.2 Hemorrhoids ICD-9: 455.6 03/12/2015 Blood in stool ICD-9: 578.1 03/12/2015 Weight loss ICD-9: 783.21 03/12/2015 Fatigue ICD-9: 780.79 01/08/2015 Aortic regurgitation ICD-9: 424.1 2014 Heart murmur ICD-9: 785.2 01/08/2015 MYALGIA AND MYOSITIS ICD-9: 729.1 2014 CHRONIC PAIN SYNDROME ICD-9: 338.4 2014 Encounter for screening mammogram for malignant neoplasm of breast ICD-9: V76.12 10/15/2014 ACUTE URI ICD-9: 465.9 10/04/2014 Esophageal reflux ICD-9: 530.81 2014 VACCIN STREP PNEUMONIAE ICD-10: Z23 ICD-9: V03.82 08/06/2014 Insomnia ICD-9: 780.52 05/16/2014 DEPRESSIVE DISORDER NEC ICD-9: 311 2013 Dyshidrotic eczema ICD-9: 705.81 2013 Rash ICD-9: 782.1 12/07/2013 Dietary counseling ICD-9: V65.3 2013 SACROILIITIS NEC ICD-9: 720.2 05/18/2013 Back pain ICD-9: 724.5 05/18/2013 Sleep apnea ICD-9: 780.57 04/18/2013 Snoring disorder ICD-9: 786.09 2012 CELLULITIS OF NECK ICD-9: 682.1 2012 CELLULITIS OF TRUNK ICD-9: 682.2 2012 EDEMA ICD-9: 782.3 01/23/2013 ENCNTR LONG-RX USE NEC ICD-9: V58.69 10/2012 HYPERLIPIDEMIA ICD-9: 272.4 01/23/2013 JOINT PAIN-HAND ICD-9: 719.44 12/27/2012 CELLULITIS, FINGER ICD-9: 681.00 2012 Elevated glucose ICD-9: 790.29 2012 ACUTE MAXILLARY SINUSITIS ICD-9: 461.0 Dental abscess ICD-9: 522.5 08/02/2012 JOINT PAIN-L/LEG ICD-9: 719.46 2011 Tennis elbow ICD-9: 726.32 06/06/2012 Neck pain on right side ICD-9: 723.1 Medial epicondylitis ICD-9: 726.31 2011 ANEMIA ICD-9: 285.9 02/08/2012 Paronychia of toe ICD-9: 681.11 2011 Acute renal failure ICD-9: 584.9 2011 Oral aphthae ICD-9: 528.2 01/22/2012 History of iron deficiency anemia ICD-9: V12.3 01/22/2012 ACUTE SINUSITIS ICD-9: 461.9 10/19/2011 COUGH ICD-9: 786.2 10/19/2011 ROUTINE GYNE EXAM ICD-9: V72.31 2011 Primary localized osteoarthrosis of the knee ICD-9: 715.16 07/02/2011 Fall from slipping ICD-9: E885.9 2010 Reason For Visit Reason For Visit Effective Dates Notes depression 09/03/2017 depression 05/27/2017 blood pressure followup 04/27/2017 blood pressure followup 03/09/2017 cough 02/22/2017 Annual Medicare Wellness Exam 12/28/2016 urinary urgency 12/24/2016 rash 10/06/2016 paresthesia 10/01/2016 paresthesia 09/01/2016 paresthesia 08/11/2016 skin lesion 07/01/2016 foot pain 04/23/2016 anxiety 03/03/2016 rash 01/14/2016 Hospital Follow Up 12/03/2015 hypertension 10/10/2015 hypertension 08/28/2015 constipation 06/12/2015 constipation 05/09/2015 hemorrhoids 04/12/2015 hemorrhoids 03/12/2015 pain 01/08/2015 earache 10/04/2014 ~generic 09/10/2014 pain in right rib area sinus congestion 08/06/2014 pt reports head feels full and throat is dry ~generic 07/12/2014 pain in right rib area insomnia 05/16/2014 Pt reports not being able to fall asleep. She reports having a lot of stress. hypertension 04/05/2014 palpitations 03/05/2014 skin lesion 02/01/2014 skin lesion 12/07/2013 hypertension 09/25/2013 fatigue 09/04/2013 Weight follow up 05/18/2013 fatigue 04/18/2013 fatigue 03/16/2013 rash 01/26/2013 finger pain 12/27/2012 hypertension 10/11/2012 headache 09/21/2012 sinus pain 08/02/2012 back pain 06/27/2012 sciatica 06/06/2012 arm pain 05/16/2012 edema 02/29/2012 fatigue 02/08/2012 fatigue 02/01/2012 oral lesion 01/22/2012 pt taking acyclovir with little relief sinus congestion 10/19/2011 well woman exam (65+ years) 09/09/2011 earache 08/13/2011 edema 07/02/2011 legs have been swollen since she got injections in her knees 06/23/11 knee pain 06/24/2011 oral lesion 04/16/2011 Results Observation Observation Code Item Item Code Result Date Sed Rate Ord21 ESR 26 mm/hr 01/04/2017 C-Reactive Protein Qnt Crqnt CRP 0.2 mg/dl 01/04/2017 Urine Culture Ucult Complete >100,000 col/ml aerobic growth sent to ref lab 12/25/2016 Vitamin D 25 Oh [id number] VITAMIN D, 25 HYDROXY 30.42 ng/mL Cbc With Differential Ord2 WBC 6.53 K/ul 08/11/2016 Cbc With Differential Ord2 RBC 3.86 M/ul 08/11/2016 Cbc With Differential Ord2 HGB 11.6 g/dl 08/11/2016 Cbc With Differential Ord2 Neut% 60.4 % 08/11/2016 Cbc With Differential Ord2 HCT 35.4 % 08/11/2016 Cbc With Differential Ord2 Lymph% 28.6 % 08/11/2016 Cbc With Differential Ord2 MCV 91.7 fl 08/11/2016 Cbc With Differential Ord2 Wallace% 8.4 % 08/11/2016 Cbc With Differential Ord2 MCH 30.1 pg 08/11/2016 Cbc With Differential Ord2 MCHC 32.8 pg 08/11/2016 Cbc With Differential Ord2 Eos% 2.1 % 08/11/2016 Cbc With Differential Ord2 PLT 345 K/ul 08/11/2016 Cbc With Differential Ord2 Baso% 0.5 % 08/11/2016 Cbc With Differential Ord2 Neut ABS# 3.94 K/ul 08/11/2016 Cbc With Differential Ord2 RDW 12.9 % 08/11/2016 Cbc With Differential Ord2 Lymph ABS# 1.87 K/ul 08/11/2016 Cbc With Differential Ord2 Wallace ABS# 0.6 K/ul 08/11/2016 Cbc With Differential Ord2 Eos ABS# 0.1 K/ul 08/11/2016 Cbc With Differential Ord2 Baso ABS# 0.0 K/ul 08/11/2016 Tsh Ord6 hTSH II 0.90 uIU/mL 08/11/2016 Iron Ord72 Iron 135 ug/dl 08/11/2016 Ferritin Ord22 FERRITIN 135.3 ng/mL 08/11/2016 B12 Rcn127 B12 >1500.00 pg/ml 08/11/2016 Comp Metabolic Vib694 NA 138 mEq/L 08/11/2016 Comp Metabolic Vnk051 K 4.6 mEq/L 08/11/2016 Comp Metabolic Xnn179 CL 102 mEq/L 08/11/2016 Comp Metabolic Sdj652 CO2 29.0 mEq/L 08/11/2016 Comp Metabolic Wds810 ANION GAP 12 08/11/2016 Comp Metabolic Jkf108 GLUCOSE 83 mg/dL 08/11/2016 Comp Metabolic Tde462 Creat 1.0 mg/dL 08/11/2016 Comp Metabolic Pyb047 eGFR 60 ml/min/1.73m2 08/11/2016 Comp Metabolic Ffn086 BUN 14 mg/dL 08/11/2016 Comp Metabolic Ueu278 B/C Ratio 14.6 Ratio 08/11/2016 Comp Metabolic Kqz794 CALCIUM 10.2 mg/dL 08/11/2016 Comp Metabolic Yll828 ALK PHOS 69 U/L 08/11/2016 Comp Metabolic Wuz911 AST(SGOT) 15 U/L 08/11/2016 Comp Metabolic Zjb674 ALT(SGPT) 12 U/L 08/11/2016 Comp Metabolic Yjh494 BILI T 1.3 mg/dL 08/11/2016 Comp Metabolic Gyk689 ALBUMIN 4.7 g/dL 08/11/2016 Comp Metabolic Oqt129 TPRO 7.3 g/dL 08/11/2016 Comp Metabolic Qcq184 GLOB 2.6 g/dL 08/11/2016 Comp Metabolic Ggi212 A/G Ratio 1.9 Ratio 08/11/2016 Comp Metabolic Ici500 Osmo 275 mOsmo 08/11/2016 Culture Urine [id number] URINE CULTURE SEE NOTES 06/01/2016 Culture Urine [id number] Continued Results 06/01/2016 Urine Culture Ucult Complete >100,000 col/ml aerobic growth sent to ref lab 05/28/2016 Metabolic Ord15 NA 138 mEq/L 05/18/2016 Metabolic Ord15 K 3.6 mEq/L 05/18/2016 Metabolic Ord15 CL 103 mEq/L 05/18/2016 Metabolic Ord15 CO2 27.0 mEq/L 05/18/2016 Metabolic Ord15 GLUCOSE 92 mg/dL 05/18/2016 Metabolic Ord15 BUN 15 mg/dL 05/18/2016 Metabolic Ord15 Creat 0.8 mg/dL 05/18/2016 Metabolic Ord15 B/C Ratio 18.8 Ratio 05/18/2016 Metabolic Ord15 eGFR 74 ml/min/1.73m2 05/18/2016 Metabolic Ord15 Osmo 276 mOsmo 05/18/2016 Metabolic Ord15 ANION GAP 12 05/18/2016 Metabolic Ord15 CALCIUM 9.6 mg/dL 05/18/2016 Comp Metabolic Pcx152 NA 143 mEq/L 04/28/2016 Comp Metabolic Pti575 K 3.3 mEq/L 04/28/2016 Comp Metabolic Iuo917 CL 108 mEq/L 04/28/2016 Comp Metabolic Ewu909 CO2 27.0 mEq/L 04/28/2016 Comp Metabolic Ahb519 ANION GAP 11 04/28/2016 Comp Metabolic Npl213 GLUCOSE 103 mg/dL 04/28/2016 Comp Metabolic Ibr396 Creat 0.8 mg/dL 04/28/2016 Comp Metabolic Tfn956 eGFR 79 ml/min/1.73m2 04/28/2016 Comp Metabolic Hzj913 BUN 11 mg/dL 04/28/2016 Comp Metabolic Jey068 B/C Ratio 14.5 Ratio 04/28/2016 Comp Metabolic Slo593 CALCIUM 9.1 mg/dL 04/28/2016 Comp Metabolic Xwz250 ALK PHOS 60 U/L 04/28/2016 Comp Metabolic Dji081 AST(SGOT) 15 U/L 04/28/2016 Comp Metabolic Bkd154 ALT(SGPT) 13 U/L 04/28/2016 Comp Metabolic Xcn879 BILI T 1.0 mg/dL 04/28/2016 Comp Metabolic Rua932 ALBUMIN 4.1 g/dL 04/28/2016 Comp Metabolic Zxz116 TPRO 6.5 g/dL 04/28/2016 Comp Metabolic Yfn298 GLOB 2.4 g/dL 04/28/2016 Comp Metabolic Mqs322 A/G Ratio 1.7 Ratio 04/28/2016 Comp Metabolic Jse404 Osmo 285 mOsmo 04/28/2016 Cbc With Differential Ord2 WBC 5.23 K/ul 04/28/2016 Cbc With Differential Ord2 RBC 3.58 M/ul 04/28/2016 Cbc With Differential Ord2 HGB 10.4 g/dl 04/28/2016 Cbc With Differential Ord2 HCT 32.1 % 04/28/2016 Cbc With Differential Ord2 Neut% 60.1 % 04/28/2016 Cbc With Differential Ord2 MCV 89.7 fl 04/28/2016 Cbc With Differential Ord2 Lymph% 26.8 % 04/28/2016 Cbc With Differential Ord2 Wallace% 9.2 % 04/28/2016 Cbc With Differential Ord2 MCH 29.1 pg 04/28/2016 Cbc With Differential Ord2 MCHC 32.4 pg 04/28/2016 Cbc With Differential Ord2 Eos% 3.3 % 04/28/2016 Cbc With Differential Ord2 PLT 277 K/ul 04/28/2016 Cbc With Differential Ord2 Baso% 0.6 % 04/28/2016 Cbc With Differential Ord2 RDW 13.7 % 04/28/2016 Cbc With Differential Ord2 Neut ABS# 3.15 K/ul 04/28/2016 Cbc With Differential Ord2 Lymph ABS# 1.40 K/ul 04/28/2016 Cbc With Differential Ord2 Wallace ABS# 0.5 K/ul 04/28/2016 Cbc With Differential Ord2 Eos ABS# 0.2 K/ul 04/28/2016 Cbc With Differential Ord2 Baso ABS# 0.0 K/ul 04/28/2016 Lipid Ord30 CHOL 131 mg/dL 04/28/2016 Lipid Ord30 HDL 36.0 mg/dl 04/28/2016 Lipid Ord30 TRIG 134 mg/dL 04/28/2016 Lipid Ord30 LDL 68 mg/dL 04/28/2016 Lipid Ord30 C/HDL 3.6 Ratio 04/28/2016 Tsh Ord6 hTSH II 1.10 uIU/mL 04/28/2016 Culture Urine [id number] URINE CULTURE SEE NOTES 03/16/2016 Culture Urine [id number] Continued Results 03/16/2016 Urine Culture Ucult Complete >100,000 col/ml aerobic growth sent to ref lab 03/14/2016 Lipid Ord30 CHOL 226 mg/dL 10/15/2015 Lipid Ord30 HDL 44.0 mg/dl 10/15/2015 Lipid Ord30 TRIG 220 mg/dL 10/15/2015 Lipid Ord30 LDL 138 mg/dL 10/15/2015 Lipid Ord30 C/HDL 5.1 Ratio 10/15/2015 Comp Metabolic Dmu533 NA 139 mEq/L 10/15/2015 Comp Metabolic Hyp456 K 4.2 mEq/L 10/15/2015 Comp Metabolic Dbm896 CL 104 mEq/L 10/15/2015 Comp Metabolic Hze980 CO2 25.0 mEq/L 10/15/2015 Comp Metabolic Ywv494 ANION GAP 14 10/15/2015 Comp Metabolic Dth263 GLUCOSE 114 mg/dL 10/15/2015 Comp Metabolic Lvg717 Creat 1.0 mg/dL 10/15/2015 Comp Metabolic Rhc975 eGFR 59 ml/min/1.73m2 10/15/2015 Comp Metabolic Jsr263 BUN 18 mg/dL 10/15/2015 Comp Metabolic Yyd224 B/C Ratio 18.4 Ratio 10/15/2015 Comp Metabolic Ilj746 CALCIUM 9.8 mg/dL 10/15/2015 Comp Metabolic Hqo016 ALK PHOS 59 U/L 10/15/2015 Comp Metabolic Zmt128 AST(SGOT) 14 U/L 10/15/2015 Comp Metabolic Zeg103 ALT(SGPT) 13 U/L 10/15/2015 Comp Metabolic Srw987 BILI T 0.9 mg/dL 10/15/2015 Comp Metabolic Gmi284 ALBUMIN 4.2 g/dL 10/15/2015 Comp Metabolic Gel765 TPRO 6.6 g/dL 10/15/2015 Comp Metabolic Jut287 GLOB 2.4 g/dL 10/15/2015 Comp Metabolic Rek255 A/G Ratio 1.8 Ratio 10/15/2015 Comp Metabolic Zat150 Osmo 280 mOsmo 10/15/2015 Tsh Ord6 hTSH II 1.78 uIU/mL 10/15/2015 Cbc With Differential Ord2 WBC 7.40 K/ul 10/15/2015 Cbc With Differential Ord2 RBC 3.94 M/ul 10/15/2015 Cbc With Differential Ord2 HGB 11.7 g/dl 10/15/2015 Cbc With Differential Ord2 Neut% 61.7 % 10/15/2015 Cbc With Differential Ord2 HCT 36.1 % 10/15/2015 Cbc With Differential Ord2 Lymph% 26.4 % 10/15/2015 Cbc With Differential Ord2 MCV 91.6 fl 10/15/2015 Cbc With Differential Ord2 MCH 29.7 pg 10/15/2015 Cbc With Differential Ord2 Wallace% 8.5 % 10/15/2015 Cbc With Differential Ord2 MCHC 32.4 pg 10/15/2015 Cbc With Differential Ord2 Eos% 3.1 % 10/15/2015 Cbc With Differential Ord2 Baso% 0.3 % 10/15/2015 Cbc With Differential Ord2 PLT 382 K/ul 10/15/2015 Cbc With Differential Ord2 Neut ABS# 4.57 K/ul 10/15/2015 Cbc With Differential Ord2 RDW 13.6 % 10/15/2015 Cbc With Differential Ord2 Lymph ABS# 1.95 K/ul 10/15/2015 Cbc With Differential Ord2 Wallace ABS# 0.6 K/ul 10/15/2015 Cbc With Differential Ord2 Eos ABS# 0.2 K/ul 10/15/2015 Cbc With Differential Ord2 Baso ABS# 0.0 K/ul 10/15/2015 Cbc With Differential Ord2 New Analyzer Notice Please note new ref ranges starting 09-04-2015 due to implemntation of new five part differential hematolgy analyzer. 10/15/2015 Comp Metabolic Ntj376 NA 136 mEq/L 04/12/2015 Comp Metabolic Ujh314 K 4.4 mEq/L 04/12/2015 Comp Metabolic Riy970 CL 102 mEq/L 04/12/2015 Comp Metabolic Wgu661 CO2 28.0 mEq/L 04/12/2015 Comp Metabolic Wxg063 ANION GAP 10 04/12/2015 Comp Metabolic Tao071 GLUCOSE 86 mg/dL 04/12/2015 Comp Metabolic Pme912 Creat 0.9 mg/dL 04/12/2015 Comp Metabolic Zsb606 eGFR 70 ml/min/1.73m2 04/12/2015 Comp Metabolic Uzd906 BUN 17 mg/dL 04/12/2015 Comp Metabolic Hml341 B/C Ratio 20.0 Ratio 04/12/2015 Comp Metabolic Nff686 CALCIUM 9.6 mg/dL 04/12/2015 Comp Metabolic Lwc693 ALK PHOS 60 U/L 04/12/2015 Comp Metabolic Npi398 AST(SGOT) 16 U/L 04/12/2015 Comp Metabolic Tqr778 ALT(SGPT) 14 U/L 04/12/2015 Comp Metabolic Eet558 BILI T 1.0 mg/dL 04/12/2015 Comp Metabolic Wid624 ALBUMIN 4.4 g/dL 04/12/2015 Comp Metabolic Hzo776 TPRO 6.8 g/dL 04/12/2015 Comp Metabolic Taq281 GLOB 2.4 g/dL 04/12/2015 Comp Metabolic Kci098 A/G Ratio 1.8 Ratio 04/12/2015 Comp Metabolic Jzq642 Osmo 273 mOsmo 04/12/2015 Cbc With Differential Ord2 WBC 7.2 K/uL 04/12/2015 Cbc With Differential Ord2 LYM 1.8 K/uL 04/12/2015 Cbc With Differential Ord2 LYM% 24.5 % 04/12/2015 Cbc With Differential Ord2 NEUT/GRAN 5.0 K/uL 04/12/2015 Cbc With Differential Ord2 NEUT/GRAN % 70.1 % 04/12/2015 Cbc With Differential Ord2 MID 0.4 K/uL 04/12/2015 Cbc With Differential Ord2 MID% 5.4 % 04/12/2015 Cbc With Differential Ord2 RBC 3.82 M/uL 04/12/2015 Cbc With Differential Ord2 HGB 11.2 g/dL 04/12/2015 Cbc With Differential Ord2 HCT 34.4 % 04/12/2015 Cbc With Differential Ord2 MCV 90 fL 04/12/2015 Cbc With Differential Ord2 MCH 29 pg 04/12/2015 Cbc With Differential Ord2 MCHC 33 g/dL 04/12/2015 Cbc With Differential Ord2 PLT 337 K/uL 04/12/2015 Cbc With Differential Ord2 RDW 15.0 % 04/12/2015 B12 Grx908 B12 >1500.00 pg/ml 04/12/2015 Tsh Ord6 hTSH II 1.17 uIU/mL 04/12/2015 Vitamin D 25 Oh Iyf4231 VITAMIN D, 25 HYDROXY 62.36 ng/mL A1C HPLC [id number] A1C HPLC 77017-3 6.1 % 01/24/2013 TSH [id number] TSH 1.854 uIU/ML 01/23/2013 GFR CALC 4593222 GFR AA >60 ML/MIN 01/23/2013 GFR CALC 1946014 GFR NON-AA >60 ML/MIN 01/23/2013 CBC [id number] WBC 8.7 10e9/L 01/23/2013 CBC [id number] RBC 3.84 10e12/L 01/23/2013 CBC [id number] HGB 11.3 g/dL 01/23/2013 CBC [id number] HCT DET 34.5 % 01/23/2013 CBC [id number] MCV 89.8 fL 01/23/2013 CBC [id number] MCH 29.4 pg 01/23/2013 CBC [id number] MCHC 32.8 g/dL 01/23/2013 CBC [id number] PLT 384 10e9/L 01/23/2013 CBC [id number] MPV 10.7 fL 01/23/2013 CBC [id number] CHRISTIANNE % 70.2 % 01/23/2013 CBC [id number] LY % 19.2 % 01/23/2013 CBC [id number] MON % 6.9 % 01/23/2013 CBC [id number] EOS % 3.5 % 01/23/2013 CBC [id number] BASO % 0.2 % 01/23/2013 CBC [id number] RDW 13.0 % 01/23/2013 CBC 0900868 ABS CHRISTIANNE 6.11 10e9/L 01/23/2013 CBC 9923182 ABS LYMPH 1.67 10e9/L 01/23/2013 CBC 1505815 ABS MONO 0.60 10e9/L 01/23/2013 CBC 9830988 ABS EOS 0.30 10e9/L 01/23/2013 CBC 7145784 ABS BASO 0.02 10e9/L 01/23/2013 CBC 0894044 RDW-SD 42.1 fL 01/23/2013 CHEM 14 1500012 AST 11 U/L 01/23/2013 CHEM 14 5250878 ALT 16 IU/L 01/23/2013 CHEM 14 3281445 BUN 10 MG/DL 01/23/2013 CHEM 14 0627568 ALBUMIN 4.4 GM/DL 01/23/2013 CHEM 14 6929930 CHLORIDE 104 MMOL/L 01/23/2013 CHEM 14 6635536 BILI TOT 1.1 MG/DL 01/23/2013 CHEM 14 1895187 ALK PHOS 74 U/L 01/23/2013 CHEM 14 0319807 SODIUM 141 MMOL/L 01/23/2013 CHEM 14 1984870 CREATININE 0.76 MG/DL 01/23/2013 CHEM 14 7123596 CALCIUM 9.4 MG/DL 01/23/2013 CHEM 14 2875373 POTASSIUM 3.4 MMOL/L 01/23/2013 CHEM 14 9634776 PROT TOT 6.6 GM/DL 01/23/2013 CHEM 14 2030461 GLUCOSE 107 MG/DL 01/23/2013 CHEM 14 8674381 BICARB 28 MMOL/L 01/23/2013 CHEM 14 9777627 ANION GAP 9 MEQ/L 01/23/2013 ESR 7949318 ESR 28 MM/HR 12/28/2012 CRP 8990229 CRP 0.5 MG/DL 12/28/2012 VIT B 12 5713646 VIT B 12 760 PG/ML 12/28/2012 URIC ACID 5161386 URIC ACID 4.4 MG/DL 12/27/2012 GFR CALC 1920041 GFR AA >60 ML/MIN 12/27/2012 GFR CALC [id number] GFR NON-AA >60 ML/MIN 12/27/2012 CHEM 14 [id number] AST 16 U/L 12/27/2012 CHEM 14 [id number] ALT 17 IU/L 12/27/2012 CHEM 14 [id number] BUN 8 MG/DL 12/27/2012 CHEM 14 [id number] ALBUMIN 4.4 GM/DL 12/27/2012 CHEM 14 [id number] CHLORIDE 104 MMOL/L 12/27/2012 CHEM 14 [id number] BILI TOT 1.0 MG/DL 12/27/2012 CHEM 14 [id number] ALK PHOS 79 U/L 12/27/2012 CHEM 14 [id number] SODIUM 142 MMOL/L 12/27/2012 CHEM 14 [id number] CREATININE 0.72 MG/DL 12/27/2012 CHEM 14 [id number] CALCIUM 9.3 MG/DL 12/27/2012 CHEM 14 [id number] POTASSIUM 3.4 MMOL/L 12/27/2012 CHEM 14 [id number] PROT TOT 6.9 GM/DL 12/27/2012 CHEM 14 [id number] GLUCOSE 96 MG/DL 12/27/2012 CHEM 14 [id number] BICARB 32 MMOL/L 12/27/2012 CHEM 14 [id number] ANION GAP 6 MEQ/L 12/27/2012 CBC [id number] WBC 8.2 10e9/L 12/27/2012 CBC [id number] RBC 3.75 10e12/L 12/27/2012 CBC [id number] HGB 11.1 g/dL 12/27/2012 CBC [id number] HCT DET 34.2 % 12/27/2012 CBC [id number] MCV 91.2 fL 12/27/2012 CBC [id number] MCH 29.6 pg 12/27/2012 CBC [id number] MCHC 32.5 g/dL 12/27/2012 CBC [id number] PLT 335 10e9/L 12/27/2012 CBC [id number] MPV 10.7 fL 12/27/2012 CBC [id number] CHRISTIANNE % 68.2 % 12/27/2012 CBC [id number] LY % 22.0 % 12/27/2012 CBC [id number] MON % 7.3 % 12/27/2012 CBC [id number] EOS % 2.3 % 12/27/2012 CBC [id number] BASO % 0.2 % 12/27/2012 CBC [id number] RDW 12.8 % 12/27/2012 CBC [id number] ABS CHRISTIANNE 5.59 10e9/L 12/27/2012 CBC [id number] ABS LYMPH 1.80 10e9/L 12/27/2012 CBC [id number] ABS MONO 0.60 10e9/L 12/27/2012 CBC [id number] ABS EOS 0.19 10e9/L 12/27/2012 CBC [id number] ABS BASO 0.02 10e9/L 12/27/2012 CBC [id number] RDW-SD 41.4 fL 12/27/2012 A1C HPLC [id number] A1C HPLC 89513-9 5.4 % 10/10/2012 LIPID GRP HDL TEST 45 MG/DL 10/07/2012 LIPID GRP TRIG 182 MG/DL 10/07/2012 LIPID GRP TEST LDL 94 MG/DL 10/07/2012 LIPID GRP CHOL 175 MG/DL 10/07/2012 LIPID GRP RCHOL/HDL 3.89 RATIO 10/07/2012 TSH [id number] TSH 1.239 uIU/ML 10/07/2012 GFR CALC [id number] GFR AA >60 ML/MIN 10/07/2012 GFR CALC [id number] GFR NON-AA >60 ML/MIN 10/07/2012 CBC [id number] WBC 7.1 10e9/L 10/07/2012 CBC [id number] RBC 3.98 10e12/L 10/07/2012 CBC [id number] HGB 11.8 g/dL 10/07/2012 CBC [id number] HCT DET 36.0 % 10/07/2012 CBC [id number] MCV 90.5 fL 10/07/2012 CBC [id number] MCH 29.6 pg 10/07/2012 CBC [id number] MCHC 32.8 g/dL 10/07/2012 CBC [id number] PLT 333 10e9/L 10/07/2012 CBC [id number] MPV 11.5 fL 10/07/2012 CBC [id number] CHRISTIANNE % 65.7 % 10/07/2012 CBC [id number] LY % 24.0 % 10/07/2012 CBC [id number] MON % 7.4 % 10/07/2012 CBC [id number] EOS % 2.5 % 10/07/2012 CBC [id number] BASO % 0.4 % 10/07/2012 CBC [id number] RDW 12.7 % 10/07/2012 CBC [id number] ABS CHRISTIANNE 4.66 10e9/L 10/07/2012 CBC [id number] ABS LYMPH 1.70 10e9/L 10/07/2012 CBC [id number] ABS MONO 0.53 10e9/L 10/07/2012 CBC [id number] ABS EOS 0.18 10e9/L 10/07/2012 CBC [id number] ABS BASO 0.03 10e9/L 10/07/2012 CBC [id number] RDW-SD 41.3 fL 10/07/2012 CHEM 14 [id number] AST 15 U/L 10/07/2012 CHEM 14 [id number] ALT 15 IU/L 10/07/2012 CHEM 14 [id number] BUN 7 MG/DL 10/07/2012 CHEM 14 [id number] ALBUMIN 4.3 GM/DL 10/07/2012 CHEM 14 [id number] CHLORIDE 103 MMOL/L 10/07/2012 CHEM 14 [id number] BILI TOT 1.2 MG/DL 10/07/2012 CHEM 14 [id number] ALK PHOS 83 U/L 10/07/2012 CHEM 14 3971043 SODIUM 139 MMOL/L 10/07/2012 CHEM 14 [id number] CREATININE 0.74 MG/DL 10/07/2012 CHEM 14 [id number] CALCIUM 9.4 MG/DL 10/07/2012 CHEM 14 [id number] POTASSIUM 3.6 MMOL/L 10/07/2012 CHEM 14 [id number] PROT TOT 6.6 GM/DL 10/07/2012 CHEM 14 [id number] GLUCOSE 114 MG/DL 10/07/2012 CHEM 14 [id number] BICARB 25 MMOL/L 10/07/2012 CHEM 14 0869611 ANION GAP 11 MEQ/L 10/07/2012 MAGNESIUM 6736938 MAGNESIUM 1.5 MEQ/L 02/02/2012 GFR CALC 5520579 GFR AA >60 ML/MIN 02/01/2012 GFR CALC 8044845 GFR NON-AA 53.0L ML/MIN 02/01/2012 CHEM 14 [id number] AST 12 U/L 02/01/2012 CHEM 14 6484146 ALT 12 IU/L 02/01/2012 CHEM 14 [id number] BUN 24 MG/DL 02/01/2012 CHEM 14 [id number] ALBUMIN 4.3 GM/DL 02/01/2012 CHEM 14 [id number] CHLORIDE 108 MMOL/L 02/01/2012 CHEM 14 [id number] BILI TOT 0.6 MG/DL 02/01/2012 CHEM 14 7083841 ALK PHOS 69 U/L 02/01/2012 CHEM 14 6153377 SODIUM 142 MMOL/L 02/01/2012 CHEM 14 [id number] CREATININE 1.03 MG/DL 02/01/2012 CHEM 14 [id number] CALCIUM 9.5 MG/DL 02/01/2012 CHEM 14 [id number] POTASSIUM 5.1 MMOL/L 02/01/2012 CHEM 14 [id number] PROT TOT 6.7 GM/DL 02/01/2012 CHEM 14 6593089 GLUCOSE 112 MG/DL 02/01/2012 CHEM 14 [id number] BICARB 22 MMOL/L 02/01/2012 CHEM 14 7936447 ANION GAP 12 MEQ/L 02/01/2012 CBC [id number] WBC 9.6 10e9/L 01/22/2012 CBC [id number] RBC 3.71 10e12/L 01/22/2012 CBC [id number] HGB 10.8 g/dL 01/22/2012 CBC [id number] HCT DET 33.4 % 01/22/2012 CBC [id number] MCV 90.0 fL 01/22/2012 CBC [id number] MCH 29.1 pg 01/22/2012 CBC [id number] MCHC 32.3 g/dL 01/22/2012 CBC [id number] PLT 359 10e9/L 01/22/2012 CBC [id number] MPV 10.4 fL 01/22/2012 CBC [id number] CHRISTIANNE % 66.2 % 01/22/2012 CBC [id number] LY % 22.4 % 01/22/2012 CBC [id number] MON % 8.4 % 01/22/2012 CBC [id number] EOS % 2.8 % 01/22/2012 CBC [id number] BASO % 0.2 % 01/22/2012 CBC [id number] RDW 14.2 % 01/22/2012 CBC [id number] ABS CHRISTIANNE 6.36 10e9/L 01/22/2012 CBC [id number] ABS LYMPH 2.15 10e9/L 01/22/2012 CBC [id number] ABS MONO 0.81 10e9/L 01/22/2012 CBC [id number] ABS EOS 0.27 10e9/L 01/22/2012 CBC [id number] ABS BASO 0.02 10e9/L 01/22/2012 CBC [id number] RDW-SD 44.8 fL 01/22/2012 TSH [id number] TSH 1.539 uIU/ML 01/22/2012 GFR CALC 1223520 GFR AA 26.0L ML/MIN 01/22/2012 GFR CALC 9962562 GFR NON-AA 22.0 ML/MIN 01/22/2012 CHEM 14 [id number] AST 13 U/L 01/22/2012 CHEM 14 9276609 ALT 13 IU/L 01/22/2012 CHEM 14 [id number] BUN 42 MG/DL 01/22/2012 CHEM 14 [id number] ALBUMIN 4.4 GM/DL 01/22/2012 CHEM 14 [id number] CHLORIDE 103 MMOL/L 01/22/2012 CHEM 14 1732795 BILI TOT 0.8 MG/DL 01/22/2012 CHEM 14 4135809 ALK PHOS 82 U/L 01/22/2012 CHEM 14 8902027 SODIUM 138 MMOL/L 01/22/2012 CHEM 14 9848552 CREATININE 2.23 MG/DL 01/22/2012 CHEM 14 [id number] CALCIUM 9.7 MG/DL 01/22/2012 CHEM 14 4501635 POTASSIUM 4.9 MMOL/L 01/22/2012 CHEM 14 3389421 PROT TOT 7.1 GM/DL 01/22/2012 CHEM 14 [id number] GLUCOSE 92 MG/DL 01/22/2012 CHEM 14 [id number] BICARB 20 MMOL/L 01/22/2012 CHEM 14 [id number] ANION GAP 15 MEQ/L 01/22/2012 LIPID GRP HDL TEST 35 MG/DL 01/22/2012 LIPID GRP [id number] TRIG 320 MG/DL 01/22/2012 LIPID GRP 8019220 TEST LDL 89 MG/DL 01/22/2012 LIPID GRP 5593481 CHOL 188 MG/DL 01/22/2012 LIPID GRP 1801161 RCHOL/HDL 5.37 RATIO 01/22/2012 URINALYSIS NONAUTO W/O SCOPE 71982 Specific [place] 1.030 DateTime(Free Text in Aprima) URINALYSIS NONAUTO W/O SCOPE 11850 PH 6 DateTime(Free Text in Aprima) URINALYSIS NONAUTO W/O SCOPE 83740 GLUCOSE neg DateTime( Free Text in Aprima) URINALYSIS NONAUTO W/O SCOPE 57225 Protein neg DateTime( Free Text in Apr[employer]) URINALYSIS NONAUTO W/O SCOPE 04679 Blood neg DateTime(Free Text in Aprima) URINALYSIS NONAUTO W/O SCOPE 16981 Bilirubin neg DateTime(Free Text in Aprima) URINALYSIS NONAUTO W/O SCOPE 56162 Ketones neg DateTime( Free Text in Aprima) URINALYSIS NONAUTO W/O SCOPE 70229 Urobilinogen neg DateTime(Free Text in Aprima) URINALYSIS NONAUTO W/O SCOPE 07036 Nitrite neg DateTime( Free Text in Apr[employer]) URINALYSIS NONAUTO W/O SCOPE 49793 Leukocytes neg DateTime(Free Text in Aprima) Review of Systems System Result Effective Dates Constitutional No recent illness 2017 Constitutional No night sweats 2017 Constitutional No chills 09/03/2017 Constitutional No fatigue 09/03/2017 Constitutional No fever 09/03/2017 Constitutional No malaise 09/03/2017 Ears/Nose/Throat/Neck No dizziness 2017 Ears/Nose/Throat/Neck No sore throat 07/2018 Ears/Nose/Throat/Neck No otalgia 2017 Cardiovascular No chest pain/pressure 07/2018 Respiratory No cough 09/03/2017 Gastrointestinal No abdominal pain 2017 Gastrointestinal No constipation 2017 Gastrointestinal No diarrhea 09/03/2017 Gastrointestinal No nausea 09/03/2017 Gastrointestinal No vomiting 09/03/2017 Musculoskeletal stiffness 09/03/2017 Musculoskeletal arthralgia(s) 09/03/2017 Neurologic No alteration of consciousness 09/03/2017 Psychiatric No anxiety 09/03/2017 Psychiatric No depression 09/03/2017 Constitutional No recent illness 2016 Constitutional No night sweats 2016 Constitutional No chills 05/27/2017 Constitutional No fatigue 05/27/2017 Constitutional No fever 05/27/2017 Constitutional No malaise 05/27/2017 Ears/Nose/Throat/Neck No dizziness 2016 Ears/Nose/Throat/Neck No sore throat 12/2016 Ears/Nose/Throat/Neck No otalgia 2016 Cardiovascular No chest pain/pressure 12/2016 Respiratory No cough 05/27/2017 Gastrointestinal No abdominal pain 2016 Gastrointestinal No constipation 2016 Gastrointestinal No diarrhea 05/27/2017 Gastrointestinal No nausea 05/27/2017 Gastrointestinal No vomiting 05/27/2017 Musculoskeletal stiffness 05/27/2017 Musculoskeletal arthralgia(s) 05/27/2017 Neurologic No alteration of consciousness 05/27/2017 Psychiatric No anxiety 05/27/2017 Psychiatric No depression 05/27/2017 Constitutional No recent illness 2016 Constitutional No anorexia 04/27/2017 Constitutional No night sweats 2016 Constitutional No chills 04/27/2017 Constitutional No diaphoresis 04/27/2017 Constitutional No fatigue 04/27/2017 Constitutional No fever 04/27/2017 Constitutional No insomnia 04/27/2017 Constitutional No malaise 04/27/2017 Eyes No eye discharge 04/27/2017 Eyes No eye erythema 04/27/2017 Ears/Nose/Throat/Neck No dizziness 2016 Ears/Nose/Throat/Neck No sore throat 12/2016 Ears/Nose/Throat/Neck No otalgia 2016 Cardiovascular No chest pain/pressure 12/2016 Respiratory No cough 04/27/2017 Gastrointestinal No abdominal pain 2016 Gastrointestinal No constipation 2016 Gastrointestinal No diarrhea 04/27/2017 Gastrointestinal No nausea 04/27/2017 Gastrointestinal No vomiting 04/27/2017 Genitourinary/Nephrology No dysuria 04/27 Dermatologic No rash 04/27/2017 Neurologic No alteration of consciousness 04/27/2017 Psychiatric No anxiety 04/27/2017 Psychiatric No depression 04/27/2017 Musculoskeletal stiffness 04/27/2017 Musculoskeletal arthralgia(s) 04/27/2017 Constitutional No recent illness 2016 Constitutional No anorexia 03/09/2017 Constitutional No night sweats 2016 Constitutional No chills 03/09/2017 Constitutional No diaphoresis 03/09/2017 Constitutional No fatigue 03/09/2017 Constitutional No fever 03/09/2017 Constitutional No insomnia 03/09/2017 Constitutional No malaise 03/09/2017 Eyes No eye discharge 03/09/2017 Eyes No eye erythema 03/09/2017 Ears/Nose/Throat/Neck No dizziness 2016 Ears/Nose/Throat/Neck No sore throat Ears/Nose/Throat/Neck No otalgia 2016 Cardiovascular No chest pain/pressure Respiratory No cough 03/09/2017 Gastrointestinal No abdominal pain 2016 Gastrointestinal No constipation 2016 Gastrointestinal No diarrhea 03/09/2017 Gastrointestinal No nausea 03/09/2017 Gastrointestinal No vomiting 03/09/2017 Genitourinary/Nephrology No dysuria 03/09 Dermatologic No rash 03/09/2017 Neurologic No alteration of consciousness 03/09/2017 Psychiatric No anxiety 03/09/2017 Psychiatric No depression 03/09/2017 Constitutional No recent illness 2016 Constitutional No anorexia 02/22/2017 Constitutional No night sweats 2016 Constitutional No chills 02/22/2017 Constitutional No diaphoresis 02/22/2017 Constitutional No fatigue 02/22/2017 Constitutional No fever 02/22/2017 Constitutional No insomnia 02/22/2017 Constitutional No malaise 02/22/2017 Eyes No eye discharge 02/22/2017 Eyes No eye erythema 02/22/2017 Ears/Nose/Throat/Neck No dizziness 2016 Ears/Nose/Throat/Neck No sore throat 10/2016 Ears/Nose/Throat/Neck No otalgia 2016 Cardiovascular No chest pain/pressure 10/2016 Respiratory No cough 02/22/2017 Gastrointestinal No abdominal pain 2016 Gastrointestinal No constipation 2016 Gastrointestinal No diarrhea 02/22/2017 Gastrointestinal No nausea 02/22/2017 Gastrointestinal No vomiting 02/22/2017 Genitourinary/Nephrology No dysuria 02/22 Dermatologic No rash 02/22/2017 Neurologic No alteration of consciousness 02/22/2017 Constitutional No recent illness 2016 Constitutional No chills 12/28/2016 Constitutional No diaphoresis 12/28/2016 Constitutional No fever 12/28/2016 Eyes No eye discharge 12/28/2016 Cardiovascular No chest pain/pressure 03/2017 Gastrointestinal No abdominal pain 2016 Dermatologic No rash 12/28/2016 Neurologic No alteration of consciousness 12/28/2016 Ears/Nose/Throat/Neck No nasal allergies 12/28/2016 Respiratory No dyspnea 12/28/2016 Neurologic No mental status change 2016 Psychiatric anxiety 12/28/2016 Constitutional No recent illness 2016 Constitutional No anorexia 12/24/2016 Constitutional No night sweats 2016 Constitutional No chills 12/24/2016 Constitutional No diaphoresis 12/24/2016 Constitutional No fatigue 12/24/2016 Constitutional No fever 12/24/2016 Constitutional No insomnia 12/24/2016 Constitutional No malaise 12/24/2016 Eyes No eye discharge 12/24/2016 Ears/Nose/Throat/Neck No dizziness 2016 Ears/Nose/Throat/Neck No sore throat 11/2016 Ears/Nose/Throat/Neck No otalgia 2016 Cardiovascular No chest pain/pressure 11/2016 Respiratory No cough 12/24/2016 Gastrointestinal No abdominal pain 2016 Gastrointestinal No constipation 2016 Gastrointestinal No diarrhea 12/24/2016 Gastrointestinal No nausea 12/24/2016 Gastrointestinal No vomiting 12/24/2016 Genitourinary/Nephrology dysuria 2016 Dermatologic No rash 12/24/2016 Neurologic No alteration of consciousness 12/24/2016 Constitutional No recent illness 2016 Constitutional No anorexia 10/06/2016 Constitutional No night sweats 2016 Constitutional No chills 10/06/2016 Constitutional No diaphoresis 10/06/2016 Constitutional No fatigue 10/06/2016 Constitutional No fever 10/06/2016 Constitutional No weight loss 10/06/2016 Constitutional No weight gain 10/06/2016 Constitutional No malaise 10/06/2016 Constitutional No insomnia 10/06/2016 Dermatologic rash 10/06/2016 Constitutional No recent illness 2016 Constitutional No anorexia 10/01/2016 Constitutional No night sweats 2016 Constitutional No chills 10/01/2016 Constitutional No diaphoresis 10/01/2016 Constitutional No fatigue 10/01/2016 Constitutional No fever 10/01/2016 Constitutional No insomnia 10/01/2016 Constitutional No malaise 10/01/2016 Eyes No eye discharge 10/01/2016 Eyes No eye erythema 10/01/2016 Ears/Nose/Throat/Neck No dizziness 2016 Ears/Nose/Throat/Neck nasal allergies 04/2017 Ears/Nose/Throat/Neck nasal discharge 04/2017 Ears/Nose/Throat/Neck No otalgia 2016 Ears/Nose/Throat/Neck sinus congestion Ears/Nose/Throat/Neck No sore throat 04/2017 Cardiovascular No chest pain/pressure 04/2017 Respiratory No cough 10/01/2016 Gastrointestinal No abdominal pain 2016 Gastrointestinal No constipation 2016 Gastrointestinal No diarrhea 10/01/2016 Gastrointestinal No nausea 10/01/2016 Gastrointestinal No vomiting 10/01/2016 Genitourinary/Nephrology No dysuria 10/01 Dermatologic No rash 10/01/2016 Neurologic No alteration of consciousness 10/01/2016 Constitutional No recent illness 2016 Constitutional No anorexia 09/01/2016 Constitutional No night sweats 2016 Constitutional No chills 09/01/2016 Constitutional No diaphoresis 09/01/2016 Constitutional No fatigue 09/01/2016 Constitutional No fever 09/01/2016 Constitutional No insomnia 09/01/2016 Constitutional No malaise 09/01/2016 Eyes No eye discharge 09/01/2016 Eyes No eye erythema 09/01/2016 Ears/Nose/Throat/Neck No dizziness 2016 Ears/Nose/Throat/Neck No sore throat 05/2017 Ears/Nose/Throat/Neck No otalgia 2016 Cardiovascular No chest pain/pressure 05/2017 Respiratory No cough 09/01/2016 Gastrointestinal No abdominal pain 2016 Gastrointestinal constipation 09/01/2016 Gastrointestinal No diarrhea 09/01/2016 Gastrointestinal No nausea 09/01/2016 Gastrointestinal No vomiting 09/01/2016 Genitourinary/Nephrology No dysuria 09/01 Musculoskeletal stiffness 09/01/2016 Musculoskeletal arthralgia(s) 09/01/2016 Musculoskeletal myalgias 09/01/2016 Musculoskeletal shoulder pain 09/01/2016 Dermatologic No rash 09/01/2016 Neurologic No alteration of consciousness 09/01/2016 Psychiatric anxiety 09/01/2016 Psychiatric No depression 09/01/2016 Constitutional No recent illness 2015 Constitutional fatigue 08/11/2016 Ears/Nose/Throat/Neck voice change 2015 Cardiovascular No chest pain/pressure Cardiovascular No dyspnea 08/11/2016 Cardiovascular No edema 08/11/2016 Cardiovascular No exercise intolerance Cardiovascular No fatigue 08/11/2016 Cardiovascular No near-syncope/dizziness 08/11/2016 Respiratory No chest tightness 2015 Respiratory No dyspnea 08/11/2016 Respiratory No pedal edema 08/11/2016 Respiratory No snoring 08/11/2016 Respiratory No wheezing 08/11/2016 Dermatologic rash 08/11/2016 Psychiatric anxiety 08/11/2016 Psychiatric depression 08/11/2016 Constitutional anorexia 08/11/2016 Constitutional No night sweats 2015 Constitutional No chills 08/11/2016 Constitutional No diaphoresis 08/11/2016 Constitutional No fever 08/11/2016 Constitutional No insomnia 08/11/2016 Constitutional No malaise 08/11/2016 Constitutional weight loss 08/11/2016 Eyes No eye discharge 08/11/2016 Eyes No eye erythema 08/11/2016 Ears/Nose/Throat/Neck No dizziness 2015 Ears/Nose/Throat/Neck No headache 2015 Gastrointestinal No abdominal pain 2015 Gastrointestinal constipation 08/11/2016 Gastrointestinal diarrhea 08/11/2016 Genitourinary/Nephrology No dysuria 08/11 Musculoskeletal joint complaint 2015 Neurologic No alteration of consciousness 08/11/2016 Constitutional No recent illness 2015 Constitutional No fatigue 07/01/2016 Ears/Nose/Throat/Neck voice change 2015 Cardiovascular No chest pain/pressure 04/2016 Cardiovascular No dyspnea 07/01/2016 Cardiovascular No edema 07/01/2016 Cardiovascular No exercise intolerance Cardiovascular No fatigue 07/01/2016 Cardiovascular No near-syncope/dizziness 07/01/2016 Respiratory No chest tightness 2015 Respiratory No dyspnea 07/01/2016 Respiratory No pedal edema 07/01/2016 Respiratory No snoring 07/01/2016 Respiratory No wheezing 07/01/2016 Psychiatric anxiety 07/01/2016 Psychiatric depression 07/01/2016 Dermatologic rash 07/01/2016 Constitutional No night sweats 2015 Constitutional No chills 04/23/2016 Constitutional No diaphoresis 04/23/2016 Constitutional fatigue 04/23/2016 Eyes No eye discharge 04/23/2016 Eyes No eye erythema 04/23/2016 Ears/Nose/Throat/Neck No dizziness 2015 Ears/Nose/Throat/Neck No sore throat 08/2015 Ears/Nose/Throat/Neck No otalgia 2015 Cardiovascular No chest pain/pressure 08/2015 Respiratory No cough 04/23/2016 Gastrointestinal No abdominal pain 2015 Gastrointestinal constipation 04/23/2016 Gastrointestinal No diarrhea 04/23/2016 Gastrointestinal No nausea 04/23/2016 Gastrointestinal No vomiting 04/23/2016 Genitourinary/Nephrology No dysuria 04/23 Genitourinary/Nephrology urinary urgency 04/23/2016 Genitourinary/Nephrology urinary frequency 04/23/2016 Musculoskeletal stiffness 04/23/2016 Musculoskeletal arthralgia(s) 04/23/2016 Musculoskeletal myalgias 04/23/2016 Dermatologic No rash 04/23/2016 Neurologic No alteration of consciousness 04/23/2016 Psychiatric anxiety 04/23/2016 Psychiatric No depression 04/23/2016 Constitutional No fever 04/23/2016 Constitutional recent illness 04/23/2016 Constitutional No recent illness 2015 Constitutional No anorexia 03/03/2016 Constitutional No night sweats 2015 Constitutional No chills 03/03/2016 Constitutional No diaphoresis 03/03/2016 Constitutional No fatigue 03/03/2016 Constitutional No fever 03/03/2016 Constitutional No insomnia 03/03/2016 Constitutional No malaise 03/03/2016 Eyes No eye discharge 03/03/2016 Eyes No eye erythema 03/03/2016 Ears/Nose/Throat/Neck No dizziness 2015 Ears/Nose/Throat/Neck No sore throat 07/2016 Ears/Nose/Throat/Neck No otalgia 2015 Cardiovascular No chest pain/pressure 07/2016 Respiratory No cough 03/03/2016 Gastrointestinal No abdominal pain 2015 Gastrointestinal constipation 03/03/2016 Gastrointestinal No diarrhea 03/03/2016 Gastrointestinal No nausea 03/03/2016 Gastrointestinal No vomiting 03/03/2016 Genitourinary/Nephrology No dysuria 03/03 Genitourinary/Nephrology urinary urgency 03/03/2016 Genitourinary/Nephrology urinary frequency 03/03/2016 Musculoskeletal stiffness 03/03/2016 Musculoskeletal arthralgia(s) 03/03/2016 Musculoskeletal myalgias 03/03/2016 Musculoskeletal shoulder pain 03/03/2016 Dermatologic No rash 03/03/2016 Neurologic No alteration of consciousness 03/03/2016 Psychiatric anxiety 03/03/2016 Psychiatric No depression 03/03/2016 Constitutional No recent illness 2015 Constitutional No anorexia 01/14/2016 Constitutional No night sweats 2015 Constitutional No chills 01/14/2016 Constitutional No diaphoresis 01/14/2016 Constitutional No fatigue 01/14/2016 Constitutional No fever 01/14/2016 Constitutional No insomnia 01/14/2016 Constitutional No malaise 01/14/2016 Eyes No eye discharge 01/14/2016 Eyes No eye erythema 01/14/2016 Ears/Nose/Throat/Neck No dizziness 2015 Ears/Nose/Throat/Neck No sore throat Ears/Nose/Throat/Neck No otalgia 2015 Cardiovascular No chest pain/pressure Respiratory No cough 01/14/2016 Gastrointestinal No abdominal pain 2015 Gastrointestinal constipation 01/14/2016 Gastrointestinal No diarrhea 01/14/2016 Gastrointestinal No nausea 01/14/2016 Gastrointestinal No vomiting 01/14/2016 Genitourinary/Nephrology No dysuria 01/13 Genitourinary/Nephrology urinary urgency 01/14/2016 Genitourinary/Nephrology urinary frequency 01/14/2016 Musculoskeletal stiffness 01/14/2016 Musculoskeletal arthralgia(s) 01/14/2016 Musculoskeletal myalgias 01/14/2016 Musculoskeletal shoulder pain 01/14/2016 Dermatologic No rash 01/14/2016 Neurologic No alteration of consciousness 01/14/2016 Psychiatric anxiety 01/14/2016 Psychiatric No depression 01/14/2016 Constitutional No recent illness 2015 Constitutional No night sweats 2015 Constitutional No chills 12/03/2015 Constitutional No diaphoresis 12/03/2015 Constitutional No fatigue 12/03/2015 Constitutional No fever 12/03/2015 Constitutional No insomnia 12/03/2015 Constitutional No malaise 12/03/2015 Eyes No eye discharge 12/03/2015 Eyes No eye erythema 12/03/2015 Ears/Nose/Throat/Neck No sore throat 07/2016 Cardiovascular No chest pain/pressure 07/2016 Respiratory No cough 12/03/2015 Gastrointestinal No abdominal pain 2015 Gastrointestinal No diarrhea 12/03/2015 Gastrointestinal No nausea 12/03/2015 Gastrointestinal No vomiting 12/03/2015 Genitourinary/Nephrology No dysuria 12/02 Dermatologic No rash 12/03/2015 Neurologic No alteration of consciousness 12/03/2015 Psychiatric anxiety 12/03/2015 Psychiatric depression 12/03/2015 Ears/Nose/Throat/Neck No nasal allergies 12/03/2015 Ears/Nose/Throat/Neck No nasal discharge 12/03/2015 Ears/Nose/Throat/Neck No sinus congestion 12/03/2015 Cardiovascular No dyspnea 12/03/2015 Respiratory No chest congestion 2015 Gastrointestinal No constipation 2015 Constitutional No recent illness 2015 Constitutional No anorexia 10/10/2015 Constitutional No night sweats 2015 Constitutional No chills 10/10/2015 Constitutional No diaphoresis 10/10/2015 Constitutional No fatigue 10/10/2015 Constitutional No fever 10/10/2015 Constitutional No insomnia 10/10/2015 Constitutional No malaise 10/10/2015 Eyes No eye discharge 10/10/2015 Eyes No eye erythema 10/10/2015 Ears/Nose/Throat/Neck No dizziness 2015 Ears/Nose/Throat/Neck No sore throat Ears/Nose/Throat/Neck No otalgia 2015 Cardiovascular No chest pain/pressure Respiratory No cough 10/10/2015 Gastrointestinal No abdominal pain 2015 Gastrointestinal constipation 10/10/2015 Gastrointestinal No diarrhea 10/10/2015 Gastrointestinal No nausea 10/10/2015 Gastrointestinal No vomiting 10/10/2015 Genitourinary/Nephrology No dysuria 10/10 Genitourinary/Nephrology urinary urgency 10/10/2015 Genitourinary/Nephrology urinary frequency 10/10/2015 Musculoskeletal stiffness 10/10/2015 Musculoskeletal arthralgia(s) 10/10/2015 Musculoskeletal myalgias 10/10/2015 Musculoskeletal shoulder pain 10/10/2015 Dermatologic No rash 10/10/2015 Neurologic No alteration of consciousness 10/10/2015 Psychiatric anxiety 10/10/2015 Psychiatric No depression 10/10/2015 Constitutional No recent illness 2015 Constitutional No anorexia 08/28/2015 Constitutional No night sweats 2015 Constitutional No chills 08/28/2015 Constitutional No diaphoresis 08/28/2015 Constitutional No fatigue 08/28/2015 Constitutional No fever 08/28/2015 Constitutional No insomnia 08/28/2015 Constitutional No malaise 08/28/2015 Eyes No eye discharge 08/28/2015 Eyes No eye erythema 08/28/2015 Ears/Nose/Throat/Neck No dizziness 2015 Ears/Nose/Throat/Neck No sore throat 01/2016 Ears/Nose/Throat/Neck No otalgia 2015 Cardiovascular No chest pain/pressure 01/2016 Respiratory No cough 08/28/2015 Gastrointestinal No abdominal pain 2015 Gastrointestinal constipation 08/28/2015 Gastrointestinal No diarrhea 08/28/2015 Gastrointestinal No nausea 08/28/2015 Gastrointestinal No vomiting 08/28/2015 Genitourinary/Nephrology No dysuria 08/28 Genitourinary/Nephrology urinary urgency 08/28/2015 Genitourinary/Nephrology urinary frequency 08/28/2015 Musculoskeletal stiffness 08/28/2015 Musculoskeletal arthralgia(s) 08/28/2015 Musculoskeletal myalgias 08/28/2015 Dermatologic No rash 08/28/2015 Neurologic No alteration of consciousness 08/28/2015 Psychiatric anxiety 08/28/2015 Psychiatric No depression 08/28/2015 Musculoskeletal shoulder pain 08/28/2015 Constitutional No recent illness 2014 Constitutional No anorexia 06/12/2015 Constitutional No night sweats 2014 Constitutional No chills 06/12/2015 Constitutional No diaphoresis 06/12/2015 Constitutional No fatigue 06/12/2015 Constitutional No fever 06/12/2015 Constitutional No insomnia 06/12/2015 Constitutional No malaise 06/12/2015 Eyes No eye discharge 06/12/2015 Eyes No eye erythema 06/12/2015 Ears/Nose/Throat/Neck No dizziness 2014 Ears/Nose/Throat/Neck nasal allergies Ears/Nose/Throat/Neck nasal discharge Ears/Nose/Throat/Neck No sore throat Ears/Nose/Throat/Neck No otalgia 2014 Ears/Nose/Throat/Neck sinus congestion Cardiovascular No chest pain/pressure Respiratory No cough 06/12/2015 Gastrointestinal No abdominal pain 2014 Gastrointestinal constipation 06/12/2015 Gastrointestinal No diarrhea 06/12/2015 Gastrointestinal No nausea 06/12/2015 Gastrointestinal No vomiting 06/12/2015 Genitourinary/Nephrology dysuria 2014 Musculoskeletal stiffness 06/12/2015 Musculoskeletal arthralgia(s) 06/12/2015 Musculoskeletal myalgias 06/12/2015 Dermatologic No rash 06/12/2015 Neurologic No alteration of consciousness 06/12/2015 Psychiatric anxiety 06/12/2015 Psychiatric No depression 06/12/2015 Genitourinary/Nephrology urinary urgency 06/12/2015 Genitourinary/Nephrology urinary frequency 06/12/2015 Constitutional No recent illness 2014 Constitutional No anorexia 05/09/2015 Constitutional No night sweats 2014 Constitutional No chills 05/09/2015 Constitutional No diaphoresis 05/09/2015 Constitutional No fatigue 05/09/2015 Constitutional No fever 05/09/2015 Constitutional No insomnia 05/09/2015 Constitutional No malaise 05/09/2015 Eyes No eye discharge 05/09/2015 Eyes No eye erythema 05/09/2015 Ears/Nose/Throat/Neck No dizziness 2014 Ears/Nose/Throat/Neck nasal allergies Ears/Nose/Throat/Neck nasal discharge Ears/Nose/Throat/Neck No sore throat Ears/Nose/Throat/Neck No otalgia 2014 Ears/Nose/Throat/Neck sinus congestion Cardiovascular No chest pain/pressure Respiratory No cough 05/09/2015 Gastrointestinal No abdominal pain 2014 Gastrointestinal No constipation 2014 Gastrointestinal No diarrhea 05/09/2015 Gastrointestinal No nausea 05/09/2015 Gastrointestinal No vomiting 05/09/2015 Genitourinary/Nephrology No dysuria 05/09 Musculoskeletal stiffness 05/09/2015 Musculoskeletal arthralgia(s) 05/09/2015 Musculoskeletal myalgias 05/09/2015 Dermatologic No rash 05/09/2015 Neurologic No alteration of consciousness 05/09/2015 Psychiatric anxiety 05/09/2015 Psychiatric No depression 05/09/2015 Constitutional No recent illness 2014 Constitutional No night sweats 2014 Constitutional No chills 04/12/2015 Constitutional No diaphoresis 04/12/2015 Constitutional fatigue 04/12/2015 Constitutional No fever 04/12/2015 Constitutional No insomnia 04/12/2015 Constitutional No malaise 04/12/2015 Constitutional weight loss 04/12/2015 Constitutional No weight gain 04/12/2015 Eyes No eye discharge 04/12/2015 Eyes No eye erythema 04/12/2015 Ears/Nose/Throat/Neck No dizziness 2014 Ears/Nose/Throat/Neck headache 2014 Ears/Nose/Throat/Neck nasal allergies Ears/Nose/Throat/Neck nasal discharge Cardiovascular No chest pain/pressure Cardiovascular No dyspnea 04/12/2015 Cardiovascular No edema 04/12/2015 Respiratory No productive sputum 2014 Respiratory No cough 04/12/2015 Gastrointestinal hemorrhoids 04/12/2015 Gastrointestinal abdominal pain 2014 Gastrointestinal No constipation 2014 Gastrointestinal No diarrhea 04/12/2015 Gastrointestinal gas and bloating 2014 Gastrointestinal No nausea 04/12/2015 Gastrointestinal No vomiting 04/12/2015 Genitourinary/Nephrology No dysuria 04/12 Musculoskeletal joint complaint 2014 Dermatologic No rash 04/12/2015 Neurologic No alteration of consciousness 04/12/2015 Psychiatric depression 04/12/2015 Psychiatric anxiety 04/12/2015 Gastrointestinal hemorrhoids 03/12/2015 Gastrointestinal No constipation 2014 Gastrointestinal No diarrhea 03/12/2015 Gastrointestinal No nausea 03/12/2015 Gastrointestinal No vomiting 03/12/2015 Constitutional No recent illness 2014 Constitutional anorexia 03/12/2015 Constitutional No night sweats 2014 Constitutional No chills 03/12/2015 Constitutional No diaphoresis 03/12/2015 Constitutional fatigue 03/12/2015 Constitutional No fever 03/12/2015 Constitutional No insomnia 03/12/2015 Constitutional No malaise 03/12/2015 Constitutional weight loss 03/12/2015 Constitutional No weight gain 03/12/2015 Eyes No eye erythema 03/12/2015 Eyes No eye discharge 03/12/2015 Ears/Nose/Throat/Neck No dizziness 2014 Ears/Nose/Throat/Neck headache 2014 Ears/Nose/Throat/Neck nasal allergies Ears/Nose/Throat/Neck nasal discharge Cardiovascular No chest pain/pressure Cardiovascular No edema 03/12/2015 Cardiovascular No dyspnea 03/12/2015 Respiratory No productive sputum 2014 Respiratory No cough 03/12/2015 Gastrointestinal gas and bloating 2014 Gastrointestinal No abdominal pain 2014 Genitourinary/Nephrology No dysuria 03/12 Musculoskeletal joint complaint 2014 Dermatologic No rash 03/12/2015 Neurologic No alteration of consciousness 03/12/2015 Psychiatric depression 03/12/2015 Constitutional No recent illness 2014 Constitutional No anorexia 01/08/2015 Constitutional No night sweats 2014 Constitutional No chills 01/08/2015 Constitutional No diaphoresis 01/08/2015 Constitutional No fatigue 01/08/2015 Constitutional No fever 01/08/2015 Constitutional No insomnia 01/08/2015 Constitutional No malaise 01/08/2015 Constitutional No weight loss 01/08/2015 Constitutional No weight gain 01/08/2015 Eyes No eye discharge 01/08/2015 Eyes No eye erythema 01/08/2015 Ears/Nose/Throat/Neck No dizziness 2014 Ears/Nose/Throat/Neck nasal allergies Ears/Nose/Throat/Neck nasal discharge Ears/Nose/Throat/Neck No otalgia 2014 Ears/Nose/Throat/Neck sinus congestion Ears/Nose/Throat/Neck No sore throat Cardiovascular No chest pain/pressure Respiratory No cough 01/08/2015 Gastrointestinal No abdominal pain 2014 Gastrointestinal No constipation 2014 Gastrointestinal No diarrhea 01/08/2015 Gastrointestinal No nausea 01/08/2015 Gastrointestinal No vomiting 01/08/2015 Genitourinary/Nephrology No dysuria 01/08 Dermatologic No rash 01/08/2015 Neurologic No alteration of consciousness 01/08/2015 Psychiatric anxiety 01/08/2015 Psychiatric No depression 01/08/2015 Musculoskeletal stiffness 01/08/2015 Musculoskeletal arthralgia(s) 01/08/2015 Musculoskeletal myalgias 01/08/2015 Constitutional recent illness 10/04/2014 Constitutional No anorexia 10/04/2014 Constitutional No night sweats 2014 Constitutional No chills 10/04/2014 Constitutional No diaphoresis 10/04/2014 Constitutional No fever 10/04/2014 Eyes No eye discharge 10/04/2014 Eyes No eye erythema 10/04/2014 Ears/Nose/Throat/Neck No dizziness 2014 Ears/Nose/Throat/Neck nasal allergies 07/2015 Ears/Nose/Throat/Neck nasal discharge 07/2015 Ears/Nose/Throat/Neck No sore throat 07/2015 Ears/Nose/Throat/Neck No otalgia 2014 Ears/Nose/Throat/Neck sinus congestion Cardiovascular No chest pain/pressure 07/2015 Respiratory No cough 10/04/2014 Gastrointestinal No abdominal pain 2014 Gastrointestinal No constipation 2014 Gastrointestinal No diarrhea 10/04/2014 Gastrointestinal No nausea 10/04/2014 Gastrointestinal No vomiting 10/04/2014 Genitourinary/Nephrology No dysuria 10/04 Dermatologic No rash 10/04/2014 Neurologic No alteration of consciousness 10/04/2014 Constitutional No recent illness 2014 Constitutional No insomnia 09/10/2014 Eyes eye tearing 09/10/2014 Ears/Nose/Throat/Neck nasal discharge Ears/Nose/Throat/Neck No dizziness 2014 Ears/Nose/Throat/Neck No sore throat Ears/Nose/Throat/Neck No postnasal drip 09/10/2014 Ears/Nose/Throat/Neck No sinus congestion 09/10/2014 Cardiovascular No chest pain/pressure Cardiovascular No dyspnea 09/10/2014 Cardiovascular No edema 09/10/2014 Respiratory No cough 09/10/2014 Respiratory No chest tightness 2014 Respiratory No cigarette smoking 2014 Gastrointestinal No constipation 2014 Gastrointestinal No diarrhea 09/10/2014 Gastrointestinal No abdominal pain 2014 Gastrointestinal No vomiting 09/10/2014 Gastrointestinal No nausea 09/10/2014 Gastrointestinal dyspepsia 09/10/2014 Genitourinary/Nephrology No dysuria 09/10 Musculoskeletal stiffness 09/10/2014 Musculoskeletal joint complaint 2014 Psychiatric anxiety 09/10/2014 Psychiatric depression 09/10/2014 Constitutional No anorexia 09/10/2014 Constitutional No night sweats 2014 Constitutional No chills 09/10/2014 Constitutional No diaphoresis 09/10/2014 Constitutional No fatigue 09/10/2014 Constitutional No fever 09/10/2014 Constitutional No malaise 09/10/2014 Constitutional No weight loss 09/10/2014 Constitutional No weight gain 09/10/2014 Eyes No eye discharge 09/10/2014 Eyes No eye erythema 09/10/2014 Ears/Nose/Throat/Neck nasal allergies Ears/Nose/Throat/Neck No otalgia 2014 Dermatologic No rash 09/10/2014 Neurologic No alteration of consciousness 09/10/2014 Constitutional No anorexia 08/06/2014 Constitutional No night sweats 2013 Constitutional No chills 08/06/2014 Constitutional No diaphoresis 08/06/2014 Constitutional No fever 08/06/2014 Eyes No eye discharge 08/06/2014 Eyes No eye erythema 08/06/2014 Ears/Nose/Throat/Neck No dizziness 2013 Ears/Nose/Throat/Neck nasal allergies Ears/Nose/Throat/Neck nasal discharge Ears/Nose/Throat/Neck No otalgia 2013 Ears/Nose/Throat/Neck sinus congestion Ears/Nose/Throat/Neck No sore throat Cardiovascular No chest pain/pressure Respiratory No cough 08/06/2014 Gastrointestinal No abdominal pain 2013 Gastrointestinal No constipation 2013 Gastrointestinal No diarrhea 08/06/2014 Gastrointestinal No nausea 08/06/2014 Gastrointestinal No vomiting 08/06/2014 Genitourinary/Nephrology No dysuria 08/06 Dermatologic No rash 08/06/2014 Neurologic No alteration of consciousness 08/06/2014 Constitutional recent illness 08/06/2014 Constitutional No recent illness 2013 Constitutional No anorexia 07/12/2014 Constitutional No night sweats 2013 Constitutional No chills 07/12/2014 Constitutional No diaphoresis 07/12/2014 Constitutional No fatigue 07/12/2014 Constitutional No fever 07/12/2014 Constitutional No insomnia 07/12/2014 Constitutional No malaise 07/12/2014 Constitutional No weight loss 07/12/2014 Constitutional No weight gain 07/12/2014 Eyes No eye discharge 07/12/2014 Eyes No eye erythema 07/12/2014 Ears/Nose/Throat/Neck No dizziness 2013 Cardiovascular No chest pain/pressure Respiratory No cough 07/12/2014 Gastrointestinal No abdominal pain 2013 Gastrointestinal No constipation 2013 Gastrointestinal No diarrhea 07/12/2014 Gastrointestinal No vomiting 07/12/2014 Gastrointestinal No nausea 07/12/2014 Genitourinary/Nephrology No dysuria 07/12 Dermatologic No rash 07/12/2014 Ears/Nose/Throat/Neck nasal allergies Ears/Nose/Throat/Neck nasal discharge Ears/Nose/Throat/Neck No otalgia 2013 Ears/Nose/Throat/Neck sinus congestion Ears/Nose/Throat/Neck No sore throat Neurologic No alteration of consciousness 07/12/2014 Constitutional No recent illness 2013 Constitutional No night sweats 2013 Constitutional No chills 05/16/2014 Constitutional No diaphoresis 05/16/2014 Constitutional fatigue 05/16/2014 Constitutional No fever 05/16/2014 Constitutional insomnia 05/16/2014 Eyes No blindness 05/16/2014 Eyes No eye discharge 05/16/2014 Eyes No eye erythema 05/16/2014 Eyes No vision change 05/16/2014 Ears/Nose/Throat/Neck No dental pain Ears/Nose/Throat/Neck No dizziness 2013 Ears/Nose/Throat/Neck No dysphagia 2013 Ears/Nose/Throat/Neck No headache 2013 Ears/Nose/Throat/Neck No hearing loss Ears/Nose/Throat/Neck No nasal allergies 05/16/2014 Ears/Nose/Throat/Neck No sore throat Ears/Nose/Throat/Neck No postnasal drip 05/16/2014 Ears/Nose/Throat/Neck No sinus congestion 05/16/2014 Cardiovascular No chest pain/pressure Cardiovascular No dyspnea 05/16/2014 Cardiovascular No edema 05/16/2014 Cardiovascular No exercise intolerance Cardiovascular No fatigue 05/16/2014 Cardiovascular No near-syncope/dizziness 05/16/2014 Respiratory No chest congestion 2013 Respiratory No chest tightness 2013 Respiratory No cigarette smoking 2013 Respiratory No cough 05/16/2014 Respiratory No dyspnea 05/16/2014 Respiratory No pedal edema 05/16/2014 Respiratory No snoring 05/16/2014 Respiratory No wheezing 05/16/2014 Gastrointestinal No abdominal pain 2013 Gastrointestinal No constipation 2013 Gastrointestinal No diarrhea 05/16/2014 Gastrointestinal No nausea 05/16/2014 Gastrointestinal No vomiting 05/16/2014 Genitourinary/Nephrology No dysuria 05/16 Musculoskeletal stiffness 05/16/2014 Musculoskeletal No swelling 05/16/2014 Musculoskeletal arthralgia(s) 05/16/2014 Musculoskeletal back pain 05/16/2014 Musculoskeletal No muscle weakness 2013 Musculoskeletal No myalgias 05/16/2014 Dermatologic No rash 05/16/2014 Dermatologic No sores 05/16/2014 Neurologic No dizziness 05/16/2014 Neurologic No headache 05/16/2014 Neurologic pain, generalized 05/16/2014 Neurologic No neck pain 05/16/2014 Neurologic No syncope 05/16/2014 Psychiatric anxiety 05/16/2014 Psychiatric depression 05/16/2014 Constitutional No recent illness 2013 Constitutional No chills 04/05/2014 Constitutional fatigue 04/05/2014 Constitutional No fever 04/05/2014 Constitutional No insomnia 04/05/2014 Constitutional malaise 04/05/2014 Eyes No blindness 04/05/2014 Eyes No vision change 04/05/2014 Ears/Nose/Throat/Neck No dental pain Ears/Nose/Throat/Neck No dizziness 2013 Ears/Nose/Throat/Neck No dysphagia 2013 Ears/Nose/Throat/Neck No headache 2013 Ears/Nose/Throat/Neck No hearing loss Ears/Nose/Throat/Neck No nasal allergies 04/05/2014 Ears/Nose/Throat/Neck No sore throat Ears/Nose/Throat/Neck No postnasal drip 04/05/2014 Ears/Nose/Throat/Neck No sinus congestion 04/05/2014 Cardiovascular No chest pain/pressure Cardiovascular No dyspnea 04/05/2014 Cardiovascular No edema 04/05/2014 Cardiovascular No exercise intolerance Cardiovascular No fatigue 04/05/2014 Cardiovascular No near-syncope/dizziness 04/05/2014 Respiratory No chest tightness 2013 Respiratory No cigarette smoking 2013 Respiratory No cough 04/05/2014 Respiratory No dyspnea 04/05/2014 Respiratory No pedal edema 04/05/2014 Respiratory No snoring 04/05/2014 Respiratory No wheezing 04/05/2014 Musculoskeletal stiffness 04/05/2014 Musculoskeletal No swelling 04/05/2014 Musculoskeletal No muscle weakness 2013 Musculoskeletal No myalgias 04/05/2014 Musculoskeletal arthralgia(s) 04/05/2014 Neurologic No dizziness 04/05/2014 Neurologic No headache 04/05/2014 Neurologic No neck pain 04/05/2014 Neurologic No syncope 04/05/2014 Neurologic pain, generalized 04/05/2014 Constitutional No night sweats 2013 Constitutional No diaphoresis 04/05/2014 Eyes No eye discharge 04/05/2014 Eyes No eye erythema 04/05/2014 Respiratory No chest congestion 2013 Gastrointestinal No abdominal pain 2013 Gastrointestinal No constipation 2013 Gastrointestinal No diarrhea 04/05/2014 Gastrointestinal No nausea 04/05/2014 Gastrointestinal No vomiting 04/05/2014 Genitourinary/Nephrology No dysuria 04/05 Musculoskeletal back pain 04/05/2014 Dermatologic No rash 04/05/2014 Dermatologic No sores 04/05/2014 Psychiatric No anxiety 04/05/2014 Psychiatric No depression 04/05/2014 Constitutional No night sweats 2013 Constitutional No chills 03/05/2014 Constitutional No diaphoresis 03/05/2014 Constitutional fatigue 03/05/2014 Constitutional No fever 03/05/2014 Constitutional No insomnia 03/05/2014 Constitutional malaise 03/05/2014 Eyes No eye discharge 03/05/2014 Eyes No eye erythema 03/05/2014 Ears/Nose/Throat/Neck No dizziness 2013 Ears/Nose/Throat/Neck No headache 2013 Respiratory No chest congestion 2013 Respiratory No cough 03/05/2014 Gastrointestinal No abdominal pain 2013 Gastrointestinal No constipation 2013 Gastrointestinal No diarrhea 03/05/2014 Gastrointestinal No nausea 03/05/2014 Gastrointestinal No vomiting 03/05/2014 Genitourinary/Nephrology No dysuria 03/05 Musculoskeletal stiffness 03/05/2014 Musculoskeletal back pain 03/05/2014 Dermatologic No rash 03/05/2014 Dermatologic No sores 03/05/2014 Neurologic No dizziness 03/05/2014 Neurologic No headache 03/05/2014 Neurologic No neck pain 03/05/2014 Neurologic No syncope 03/05/2014 Psychiatric No anxiety 03/05/2014 Psychiatric No depression 03/05/2014 Constitutional No recent illness 2013 Constitutional No anorexia 02/01/2014 Constitutional No night sweats 2013 Constitutional No chills 02/01/2014 Constitutional No diaphoresis 02/01/2014 Constitutional No fatigue 02/01/2014 Constitutional No fever 02/01/2014 Constitutional No insomnia 02/01/2014 Constitutional No malaise 02/01/2014 Constitutional No weight loss 02/01/2014 Constitutional No weight gain 02/01/2014 Eyes No eye discharge 02/01/2014 Ears/Nose/Throat/Neck No dizziness 2013 Ears/Nose/Throat/Neck No headache 2013 Cardiovascular No chest pain/pressure 07/2014 Respiratory No productive sputum 2013 Respiratory No chest congestion 2013 Respiratory No cough 02/01/2014 Gastrointestinal No abdominal pain 2013 Gastrointestinal No constipation 2013 Gastrointestinal No diarrhea 02/01/2014 Genitourinary/Nephrology No dysuria 02/01 Musculoskeletal No joint complaint 2013 Neurologic No alteration of consciousness 02/01/2014 Constitutional No recent illness 2013 Constitutional No anorexia 12/07/2013 Constitutional No night sweats 2013 Constitutional No chills 12/07/2013 Constitutional No diaphoresis 12/07/2013 Constitutional No fatigue 12/07/2013 Constitutional No fever 12/07/2013 Constitutional No insomnia 12/07/2013 Constitutional No malaise 12/07/2013 Constitutional No weight loss 12/07/2013 Constitutional No weight gain 12/07/2013 Eyes No eye discharge 12/07/2013 Eyes eye erythema 12/07/2013 Ears/Nose/Throat/Neck No dizziness 2013 Ears/Nose/Throat/Neck No headache 2013 Cardiovascular No chest pain/pressure Respiratory No productive sputum 2013 Respiratory No chest congestion 2013 Respiratory No cough 12/07/2013 Gastrointestinal No abdominal pain 2013 Gastrointestinal No constipation 2013 Gastrointestinal No diarrhea 12/07/2013 Genitourinary/Nephrology No dysuria 12/07 Musculoskeletal No joint complaint 2013 Neurologic No alteration of consciousness 12/07/2013 Constitutional No night sweats 2013 Constitutional No chills 09/25/2013 Constitutional No diaphoresis 09/25/2013 Constitutional fatigue 09/25/2013 Constitutional No fever 09/25/2013 Constitutional No insomnia 09/25/2013 Constitutional malaise 09/25/2013 Eyes No eye discharge 09/25/2013 Eyes No eye erythema 09/25/2013 Ears/Nose/Throat/Neck No dizziness 2013 Ears/Nose/Throat/Neck No headache 2013 Respiratory No chest congestion 2013 Respiratory No cough 09/25/2013 Gastrointestinal No abdominal pain 2013 Gastrointestinal No constipation 2013 Gastrointestinal No diarrhea 09/25/2013 Gastrointestinal No nausea 09/25/2013 Gastrointestinal No vomiting 09/25/2013 Genitourinary/Nephrology No dysuria 09/25 Musculoskeletal stiffness 09/25/2013 Musculoskeletal back pain 09/25/2013 Dermatologic No rash 09/25/2013 Dermatologic No sores 09/25/2013 Neurologic No dizziness 09/25/2013 Neurologic No headache 09/25/2013 Neurologic No neck pain 09/25/2013 Neurologic No syncope 09/25/2013 Psychiatric No anxiety 09/25/2013 Psychiatric No depression 09/25/2013 Constitutional No night sweats 2013 Constitutional No chills 09/04/2013 Constitutional No diaphoresis 09/04/2013 Constitutional fatigue 09/04/2013 Constitutional No fever 09/04/2013 Constitutional No insomnia 09/04/2013 Constitutional malaise 09/04/2013 Eyes No eye discharge 09/04/2013 Eyes No eye erythema 09/04/2013 Ears/Nose/Throat/Neck No dizziness 2013 Ears/Nose/Throat/Neck No headache 2013 Respiratory No chest congestion 2013 Respiratory No cough 09/04/2013 Gastrointestinal No abdominal pain 2013 Gastrointestinal No constipation 2013 Gastrointestinal No diarrhea 09/04/2013 Gastrointestinal No nausea 09/04/2013 Gastrointestinal No vomiting 09/04/2013 Genitourinary/Nephrology No dysuria 09/04 Musculoskeletal stiffness 09/04/2013 Musculoskeletal back pain 09/04/2013 Dermatologic No rash 09/04/2013 Dermatologic No sores 09/04/2013 Neurologic No dizziness 09/04/2013 Neurologic No headache 09/04/2013 Neurologic No neck pain 09/04/2013 Neurologic No syncope 09/04/2013 Psychiatric No anxiety 09/04/2013 Psychiatric No depression 09/04/2013 Constitutional No recent illness 2012 Constitutional No chills 05/18/2013 Constitutional No fever 05/18/2013 Eyes No eye erythema 05/18/2013 Eyes No eye discharge 05/18/2013 Ears/Nose/Throat/Neck No headache 2012 Ears/Nose/Throat/Neck No dizziness 2012 Ears/Nose/Throat/Neck No otalgia 2012 Cardiovascular No chest pain/pressure Cardiovascular No dyspnea 05/18/2013 Cardiovascular No edema 05/18/2013 Cardiovascular No palpitations 2012 Respiratory No cough 05/18/2013 Gastrointestinal abdominal pain 2012 Gastrointestinal constipation 05/18/2013 Gastrointestinal diarrhea 05/18/2013 Gastrointestinal No nausea 05/18/2013 Gastrointestinal No vomiting 05/18/2013 Genitourinary/Nephrology No dysuria 05/18 Genitourinary/Nephrology polyuria 2012 Genitourinary/Nephrology No flank pain Musculoskeletal back pain 05/18/2013 Dermatologic No rash 05/18/2013 Dermatologic No sores 05/18/2013 Endocrine No cold sensitivity 05/18/2013 Endocrine No dry or coarse skin 2012 Endocrine No hair loss 05/18/2013 Endocrine No sweating 05/18/2013 Endocrine No weakness 05/18/2013 Constitutional No recent illness 2012 Constitutional No anorexia 04/18/2013 Constitutional No night sweats 2012 Constitutional No chills 04/18/2013 Constitutional No diaphoresis 04/18/2013 Constitutional fatigue 04/18/2013 Constitutional No fever 04/18/2013 Constitutional No insomnia 04/18/2013 Constitutional No malaise 04/18/2013 Eyes No eye discharge 04/18/2013 Eyes No eye erythema 04/18/2013 Ears/Nose/Throat/Neck No dizziness 2012 Ears/Nose/Throat/Neck No headache 2012 Respiratory No chest congestion 2012 Respiratory No cough 04/18/2013 Gastrointestinal No abdominal pain 2012 Gastrointestinal No constipation 2012 Gastrointestinal No diarrhea 04/18/2013 Gastrointestinal No nausea 04/18/2013 Gastrointestinal No vomiting 04/18/2013 Genitourinary/Nephrology No dysuria 04/18 Musculoskeletal stiffness 04/18/2013 Musculoskeletal back pain 04/18/2013 Dermatologic No rash 04/18/2013 Dermatologic No sores 04/18/2013 Neurologic No dizziness 04/18/2013 Neurologic No headache 04/18/2013 Neurologic No neck pain 04/18/2013 Neurologic No syncope 04/18/2013 Psychiatric No anxiety 04/18/2013 Psychiatric No depression 04/18/2013 Constitutional No recent illness 2012 Constitutional No anorexia 03/16/2013 Psychiatric No depression 03/16/2013 Constitutional No night sweats 2012 Constitutional No chills 03/16/2013 Constitutional No diaphoresis 03/16/2013 Constitutional No fever 03/16/2013 Eyes No eye discharge 03/16/2013 Eyes No eye erythema 03/16/2013 Ears/Nose/Throat/Neck No dizziness 2012 Ears/Nose/Throat/Neck No headache 2012 Respiratory No chest congestion 2012 Respiratory No cough 03/16/2013 Gastrointestinal No abdominal pain 2012 Gastrointestinal No constipation 2012 Gastrointestinal No diarrhea 03/16/2013 Gastrointestinal No nausea 03/16/2013 Gastrointestinal No vomiting 03/16/2013 Genitourinary/Nephrology No dysuria 03/16 Musculoskeletal stiffness 03/16/2013 Musculoskeletal back pain 03/16/2013 Dermatologic No sores 03/16/2013 Neurologic No dizziness 03/16/2013 Neurologic No headache 03/16/2013 Neurologic No neck pain 03/16/2013 Neurologic No syncope 03/16/2013 Psychiatric No anxiety 03/16/2013 Constitutional No night sweats 2012 Constitutional No diaphoresis 01/26/2013 Constitutional No fatigue 01/26/2013 Constitutional No fever 01/26/2013 Eyes No eye discharge 01/26/2013 Eyes No eye erythema 01/26/2013 Ears/Nose/Throat/Neck No dizziness 2012 Ears/Nose/Throat/Neck nasal allergies 01/2013 Cardiovascular No chest pain/pressure 01/2013 Respiratory No productive sputum 2012 Respiratory No chest congestion 2012 Respiratory No chest tightness 2012 Gastrointestinal No abdominal pain 2012 Gastrointestinal No constipation 2012 Gastrointestinal No diarrhea 01/26/2013 Gastrointestinal No nausea 01/26/2013 Gastrointestinal No vomiting 01/26/2013 Neurologic No alteration of consciousness 01/26/2013 Constitutional No recent illness 2012 Constitutional No anorexia 12/27/2012 Constitutional No night sweats 2012 Constitutional No chills 12/27/2012 Constitutional No diaphoresis 12/27/2012 Constitutional No fatigue 12/27/2012 Constitutional No fever 12/27/2012 Constitutional No malaise 12/27/2012 Constitutional No insomnia 12/27/2012 Constitutional No recent illness 2012 Constitutional No anorexia 10/11/2012 Constitutional No night sweats 2012 Constitutional No chills 10/11/2012 Constitutional No diaphoresis 10/11/2012 Constitutional No fatigue 10/11/2012 Constitutional No fever 10/11/2012 Constitutional No insomnia 10/11/2012 Constitutional No malaise 10/11/2012 Eyes No eye discharge 10/11/2012 Eyes No eye erythema 10/11/2012 Ears/Nose/Throat/Neck No dizziness 2012 Ears/Nose/Throat/Neck No headache 2012 Respiratory No chest congestion 2012 Respiratory No cough 10/11/2012 Gastrointestinal No abdominal pain 2012 Gastrointestinal No constipation 2012 Gastrointestinal No diarrhea 10/11/2012 Gastrointestinal No nausea 10/11/2012 Gastrointestinal No vomiting 10/11/2012 Genitourinary/Nephrology No dysuria 10/11 Dermatologic No rash 10/11/2012 Dermatologic No sores 10/11/2012 Psychiatric No anxiety 10/11/2012 Psychiatric No depression 10/11/2012 Neurologic No dizziness 10/11/2012 Neurologic No headache 10/11/2012 Neurologic No neck pain 10/11/2012 Neurologic No syncope 10/11/2012 Musculoskeletal back pain 10/11/2012 Musculoskeletal stiffness 10/11/2012 Constitutional No recent illness 2012 Constitutional No night sweats 2012 Constitutional No diaphoresis 09/21/2012 Constitutional fatigue 09/21/2012 Constitutional No fever 09/21/2012 Constitutional No insomnia 09/21/2012 Constitutional No malaise 09/21/2012 Eyes No eye discharge 09/21/2012 Eyes No eye erythema 09/21/2012 Ears/Nose/Throat/Neck No dizziness 2012 Ears/Nose/Throat/Neck No nasal allergies 09/21/2012 Ears/Nose/Throat/Neck No nasal discharge 09/21/2012 Ears/Nose/Throat/Neck No otalgia 2012 Cardiovascular No chest pain/pressure Cardiovascular No dyspnea 09/21/2012 Respiratory No productive sputum 2012 Respiratory No chest congestion 2012 Respiratory No cough 09/21/2012 Gastrointestinal No abdominal pain 2012 Gastrointestinal No constipation 2012 Gastrointestinal No diarrhea 09/21/2012 Gastrointestinal No nausea 09/21/2012 Gastrointestinal No vomiting 09/21/2012 Musculoskeletal No stiffness 09/21/2012 Musculoskeletal No arthralgia(s) 2012 Psychiatric anxiety 09/21/2012 Psychiatric depression 09/21/2012 Constitutional No recent illness 2011 Constitutional No night sweats 2011 Constitutional No diaphoresis 08/02/2012 Constitutional No fever 08/02/2012 Constitutional No insomnia 08/02/2012 Constitutional No malaise 08/02/2012 Eyes No eye discharge 08/02/2012 Eyes No eye erythema 08/02/2012 Ears/Nose/Throat/Neck No dizziness 2011 Ears/Nose/Throat/Neck No nasal allergies 08/02/2012 Ears/Nose/Throat/Neck No nasal discharge 08/02/2012 Ears/Nose/Throat/Neck No otalgia 2011 Respiratory No productive sputum 2011 Respiratory No chest congestion 2011 Respiratory No cough 08/02/2012 Gastrointestinal No abdominal pain 2011 Gastrointestinal No constipation 2011 Gastrointestinal No diarrhea 08/02/2012 Gastrointestinal No nausea 08/02/2012 Gastrointestinal No vomiting 08/02/2012 Dermatologic No rash 08/02/2012 Dermatologic No scar 08/02/2012 Neurologic No dizziness 08/02/2012 Neurologic dyskinesia or tremor 2011 Neurologic gait abnormality 08/02/2012 Neurologic No headache 08/02/2012 Neurologic No neck pain 08/02/2012 Neurologic No syncope 08/02/2012 Psychiatric No anxiety 08/02/2012 Psychiatric depression 08/02/2012 Constitutional No chills 08/02/2012 Constitutional No fatigue 08/02/2012 Ears/Nose/Throat/Neck otitis media 2011 Ears/Nose/Throat/Neck sinus congestion Ears/Nose/Throat/Neck sore throat 2011 Cardiovascular No chest pain/pressure 06/2012 Respiratory No chest tightness 2011 Genitourinary/Nephrology No dysuria 08/02 Neurologic No alteration of consciousness 08/02/2012 Constitutional No recent illness 2011 Constitutional No night sweats 2011 Constitutional No diaphoresis 06/27/2012 Constitutional No fever 06/27/2012 Constitutional No insomnia 06/27/2012 Constitutional No malaise 06/27/2012 Eyes No eye discharge 06/27/2012 Eyes No eye erythema 06/27/2012 Ears/Nose/Throat/Neck No dizziness 2011 Ears/Nose/Throat/Neck No nasal allergies 06/27/2012 Ears/Nose/Throat/Neck No nasal discharge 06/27/2012 Ears/Nose/Throat/Neck No otalgia 2011 Respiratory No productive sputum 2011 Respiratory No chest congestion 2011 Respiratory No cough 06/27/2012 Gastrointestinal No abdominal pain 2011 Gastrointestinal No constipation 2011 Gastrointestinal No diarrhea 06/27/2012 Gastrointestinal No nausea 06/27/2012 Gastrointestinal No vomiting 06/27/2012 Dermatologic No rash 06/27/2012 Dermatologic No scar 06/27/2012 Neurologic No dizziness 06/27/2012 Neurologic dyskinesia or tremor 2011 Neurologic gait abnormality 06/27/2012 Neurologic No headache 06/27/2012 Neurologic No neck pain 06/27/2012 Neurologic No syncope 06/27/2012 Psychiatric No anxiety 06/27/2012 Psychiatric depression 06/27/2012 Constitutional No recent illness 2011 Constitutional No night sweats 2011 Constitutional No diaphoresis 06/06/2012 Constitutional No fever 06/06/2012 Constitutional No insomnia 06/06/2012 Constitutional No malaise 06/06/2012 Eyes No eye discharge 06/06/2012 Eyes No eye erythema 06/06/2012 Ears/Nose/Throat/Neck No dizziness 2011 Ears/Nose/Throat/Neck No nasal allergies 06/06/2012 Ears/Nose/Throat/Neck No nasal discharge 06/06/2012 Ears/Nose/Throat/Neck No otalgia 2011 Respiratory No productive sputum 2011 Respiratory No chest congestion 2011 Respiratory No cough 06/06/2012 Gastrointestinal No abdominal pain 2011 Gastrointestinal No constipation 2011 Gastrointestinal No diarrhea 06/06/2012 Gastrointestinal No nausea 06/06/2012 Gastrointestinal No vomiting 06/06/2012 Psychiatric No anxiety 06/06/2012 Psychiatric depression 06/06/2012 Dermatologic No rash 06/06/2012 Dermatologic No scar 06/06/2012 Neurologic No dizziness 06/06/2012 Neurologic No headache 06/06/2012 Neurologic No neck pain 06/06/2012 Neurologic No syncope 06/06/2012 Neurologic dyskinesia or tremor 2011 Neurologic gait abnormality 06/06/2012 Constitutional No recent illness 2011 Constitutional No anorexia 05/16/2012 Constitutional No night sweats 2011 Constitutional No chills 05/16/2012 Constitutional No diaphoresis 05/16/2012 Constitutional No fatigue 05/16/2012 Constitutional No fever 05/16/2012 Constitutional No insomnia 05/16/2012 Constitutional No malaise 05/16/2012 Gastrointestinal No abdominal pain 2011 Gastrointestinal gastroesophageal reflux 05/16/2012 Gastrointestinal No constipation 2011 Gastrointestinal No diarrhea 05/16/2012 Gastrointestinal No nausea 05/16/2012 Gastrointestinal No vomiting 05/16/2012 Genitourinary/Nephrology No dysuria 05/16 Respiratory No chest congestion 2011 Respiratory No cough 05/16/2012 Cardiovascular No chest pain/pressure Ears/Nose/Throat/Neck No dizziness 2011 Ears/Nose/Throat/Neck No headache 2011 Eyes No eye discharge 05/16/2012 Eyes No eye erythema 05/16/2012 Dermatologic No rash 05/16/2012 Dermatologic No sores 05/16/2012 Constitutional No recent illness 2011 Constitutional No night sweats 2011 Constitutional No diaphoresis 02/29/2012 Constitutional fatigue 02/29/2012 Constitutional No fever 02/29/2012 Constitutional No insomnia 02/29/2012 Constitutional No malaise 02/29/2012 Eyes No eye discharge 02/29/2012 Eyes No eye erythema 02/29/2012 Ears/Nose/Throat/Neck No dizziness 2011 Ears/Nose/Throat/Neck No nasal allergies 02/29/2012 Ears/Nose/Throat/Neck No nasal discharge 02/29/2012 Ears/Nose/Throat/Neck No otalgia 2011 Respiratory No productive sputum 2011 Respiratory No chest congestion 2011 Respiratory No cough 02/29/2012 Gastrointestinal No abdominal pain 2011 Gastrointestinal No constipation 2011 Gastrointestinal No diarrhea 02/29/2012 Gastrointestinal No nausea 02/29/2012 Gastrointestinal No vomiting 02/29/2012 Musculoskeletal No stiffness 02/29/2012 Musculoskeletal No arthralgia(s) 2011 Psychiatric No anxiety 02/29/2012 Psychiatric depression 02/29/2012 Constitutional No recent illness 2011 Constitutional No night sweats 2011 Constitutional No diaphoresis 02/08/2012 Constitutional fatigue 02/08/2012 Constitutional No fever 02/08/2012 Constitutional No insomnia 02/08/2012 Constitutional No malaise 02/08/2012 Eyes No eye discharge 02/08/2012 Eyes No eye erythema 02/08/2012 Ears/Nose/Throat/Neck No dizziness 2011 Ears/Nose/Throat/Neck No nasal allergies 02/08/2012 Ears/Nose/Throat/Neck No nasal discharge 02/08/2012 Ears/Nose/Throat/Neck No otalgia 2011 Cardiovascular No chest pain/pressure Cardiovascular No dyspnea 02/08/2012 Respiratory No productive sputum 2011 Respiratory No chest congestion 2011 Respiratory No cough 02/08/2012 Gastrointestinal No abdominal pain 2011 Gastrointestinal No constipation 2011 Gastrointestinal No diarrhea 02/08/2012 Gastrointestinal No nausea 02/08/2012 Gastrointestinal No vomiting 02/08/2012 Musculoskeletal No stiffness 02/08/2012 Musculoskeletal No arthralgia(s) 2011 Psychiatric No anxiety 02/08/2012 Psychiatric depression 02/08/2012 Constitutional No night sweats 2011 Constitutional No diaphoresis 02/01/2012 Constitutional fatigue 02/01/2012 Constitutional No fever 02/01/2012 Constitutional No insomnia 02/01/2012 Constitutional No malaise 02/01/2012 Eyes No eye discharge 02/01/2012 Eyes No eye erythema 02/01/2012 Ears/Nose/Throat/Neck No dizziness 2011 Ears/Nose/Throat/Neck No nasal allergies 02/01/2012 Ears/Nose/Throat/Neck No nasal discharge 02/01/2012 Ears/Nose/Throat/Neck No otalgia 2011 Respiratory No productive sputum 2011 Respiratory No chest congestion 2011 Respiratory No cough 02/01/2012 Gastrointestinal No abdominal pain 2011 Gastrointestinal No constipation 2011 Gastrointestinal No diarrhea 02/01/2012 Gastrointestinal No nausea 02/01/2012 Gastrointestinal No vomiting 02/01/2012 Constitutional No recent illness 2011 Psychiatric No anxiety 02/01/2012 Psychiatric depression 02/01/2012 Musculoskeletal No stiffness 02/01/2012 Musculoskeletal No arthralgia(s) 2011 Cardiovascular No chest pain/pressure 06/2012 Cardiovascular No dyspnea 02/01/2012 Constitutional No recent illness 2011 Constitutional No anorexia 01/22/2012 Constitutional No night sweats 2011 Constitutional No chills 01/22/2012 Constitutional No diaphoresis 01/22/2012 Constitutional fatigue 01/22/2012 Constitutional No fever 01/22/2012 Constitutional No insomnia 01/22/2012 Constitutional No malaise 01/22/2012 Eyes No eye discharge 01/22/2012 Eyes No eye erythema 01/22/2012 Ears/Nose/Throat/Neck No dizziness 2011 Ears/Nose/Throat/Neck No nasal allergies 01/22/2012 Ears/Nose/Throat/Neck No nasal discharge 01/22/2012 Ears/Nose/Throat/Neck oral lesion 2011 Ears/Nose/Throat/Neck oral pain 2011 Ears/Nose/Throat/Neck No otalgia 2011 Respiratory No productive sputum 2011 Respiratory No chest congestion 2011 Respiratory No cough 01/22/2012 Gastrointestinal No vomiting 01/22/2012 Gastrointestinal No nausea 01/22/2012 Gastrointestinal No abdominal pain 2011 Gastrointestinal No constipation 2011 Gastrointestinal No diarrhea 01/22/2012 Neurologic No alteration of consciousness 10/19/2011 Constitutional No recent illness 2011 Constitutional No night sweats 2011 Constitutional No diaphoresis 10/19/2011 Constitutional No chills 10/19/2011 Constitutional No fatigue 10/19/2011 Constitutional No fever 10/19/2011 Eyes No eye discharge 10/19/2011 Eyes No eye erythema 10/19/2011 Ears/Nose/Throat/Neck No dizziness 2011 Ears/Nose/Throat/Neck headache 2011 Ears/Nose/Throat/Neck nasal allergies Ears/Nose/Throat/Neck nasal discharge Ears/Nose/Throat/Neck sinus congestion Ears/Nose/Throat/Neck sore throat 2011 Ears/Nose/Throat/Neck otitis media 2011 Cardiovascular No chest pain/pressure Respiratory No productive sputum 2011 Respiratory No chest congestion 2011 Respiratory No chest tightness 2011 Respiratory cough 10/19/2011 Gastrointestinal No abdominal pain 2011 Gastrointestinal No constipation 2011 Gastrointestinal No diarrhea 10/19/2011 Gastrointestinal No nausea 10/19/2011 Gastrointestinal No vomiting 10/19/2011 Genitourinary/Nephrology No dysuria 10/19 Dermatologic No rash 10/19/2011 Constitutional No recent illness 2011 Constitutional No chills 09/09/2011 Constitutional No diaphoresis 09/09/2011 Constitutional No fatigue 09/09/2011 Constitutional No fever 09/09/2011 Constitutional No insomnia 09/09/2011 Cardiovascular No chest pain/pressure Respiratory No productive sputum 2011 Respiratory No cough 09/09/2011 Respiratory No chest congestion 2011 Gastrointestinal No nausea 09/09/2011 Gastrointestinal No vomiting 09/09/2011 Gastrointestinal No abdominal pain 2011 Gastrointestinal No constipation 2011 Gastrointestinal No diarrhea 09/09/2011 Eyes No eye discharge 09/09/2011 Eyes No eye erythema 09/09/2011 Ears/Nose/Throat/Neck No cerumen 2011 Ears/Nose/Throat/Neck No nasal allergies 09/09/2011 Ears/Nose/Throat/Neck No nasal discharge 09/09/2011 Genitourinary/Nephrology No dysuria 09/09 Genitourinary/Nephrology No vaginal discharge 09/09/2011 Dermatologic No rash 09/09/2011 Constitutional No chills 08/13/2011 Constitutional No diaphoresis 08/13/2011 Constitutional No fatigue 08/13/2011 Constitutional No fever 08/13/2011 Eyes No eye discharge 08/13/2011 Eyes No eye erythema 08/13/2011 Ears/Nose/Throat/Neck No dizziness 2010 Ears/Nose/Throat/Neck headache 2010 Ears/Nose/Throat/Neck nasal allergies Ears/Nose/Throat/Neck nasal discharge Ears/Nose/Throat/Neck otitis media 2010 Ears/Nose/Throat/Neck sinus congestion Ears/Nose/Throat/Neck sore throat 2010 Cardiovascular No chest pain/pressure Respiratory No productive sputum 2010 Respiratory No chest congestion 2010 Respiratory No chest tightness 2010 Respiratory cough 08/13/2011 Gastrointestinal No abdominal pain 2010 Gastrointestinal No constipation 2010 Gastrointestinal No diarrhea 08/13/2011 Gastrointestinal No nausea 08/13/2011 Gastrointestinal No vomiting 08/13/2011 Genitourinary/Nephrology No dysuria 08/13 Constitutional No recent illness 2010 Constitutional No night sweats 2010 Dermatologic No rash 08/13/2011 Neurologic No alteration of consciousness 08/13/2011 Constitutional No night sweats 2010 Constitutional No chills 07/02/2011 Constitutional No fever 07/02/2011 Cardiovascular No chest pain/pressure 05/2011 Cardiovascular fatigue 07/02/2011 Respiratory No cough 07/02/2011 Respiratory No chest congestion 2010 Respiratory No chest tightness 2010 Gastrointestinal No abdominal pain 2010 Dermatologic No rash 07/02/2011 Psychiatric No anxiety 07/02/2011 Psychiatric No depression 07/02/2011 Neurologic No dizziness 07/02/2011 Constitutional No recent illness 2010 Constitutional No anorexia 06/24/2011 Constitutional No fatigue 06/24/2011 Constitutional No fever 06/24/2011 Eyes No eye discharge 06/24/2011 Eyes No eye erythema 06/24/2011 Cardiovascular No chest pain/pressure 09/2010 Cardiovascular No dyspnea 06/24/2011 Respiratory No productive sputum 2010 Respiratory No chest congestion 2010 Respiratory No cough 06/24/2011 Musculoskeletal stiffness 06/24/2011 Musculoskeletal swelling 06/24/2011 Musculoskeletal joint complaint 2010 Dermatologic No rash 06/24/2011 Constitutional No chills 04/16/2011 Constitutional No night sweats 2010 Constitutional No fatigue 04/16/2011 Constitutional No fever 04/16/2011 Ears/Nose/Throat/Neck oral lesion 2010 Ears/Nose/Throat/Neck oral pain 2010 Cardiovascular No chest pain/pressure Cardiovascular No dyspnea 04/16/2011 Cardiovascular No edema 04/16/2011 Cardiovascular hypertension 04/16/2011 Respiratory No chest congestion 2010 Respiratory No chest tightness 2010 Respiratory No cough 04/16/2011 Respiratory No dyspnea on exertion 2010 Gastrointestinal No constipation 2010 Gastrointestinal No diarrhea 04/16/2011 Musculoskeletal No back pain 04/16/2011 Musculoskeletal No muscle weakness 2010 Psychiatric anxiety 04/16/2011 Psychiatric depression 04/16/2011 Allergy/Immunology rhinitis 04/16/2011 Physical Exam Exam Name System Name Item Name Status Result Effective Dates Notes Full Exam - General 1994 Constitutional general appearance Overall: well developed 09/03/2017 None Full Exam - General 1994 Constitutional general appearance Overall: in no acute distress 09/03/2017 None Full Exam - General 1994 Constitutional general appearance Overall: well nourished 09/03/2017 None Full Exam - General 1994 Eyes pupils and irises Overall: pupils equal, round, reactive to light and accomodation 09/03/2017 None Full Exam - General 1994 Ears/Nose/Throat oral cavity/pharynx/larynx Overall: oral mucosa clear 09/03/2017 None Full Exam - General 1994 Ears/Nose/Throat oral cavity/pharynx/larynx Overall: oropharyngeal mucosa clear 09/03/2017 None Full Exam - General 1994 Ears/Nose/Throat oral cavity/pharynx/larynx Overall: no masses 09/03/2017 None Full Exam - General 1994 Respiratory auscultation Overall: breath sounds clear bilaterally 09/03/2017 None Full Exam - General 1994 Respiratory respiratory effort/rhythm Overall: no retractions 09/03/2017 None Full Exam - General 1994 Respiratory respiratory effort/rhythm Overall: normal rate 09/03/2017 None Full Exam - General 1994 Cardiovascular extremities Overall: no clubbing 09/03/2017 None Full Exam - General 1994 Cardiovascular auscultation of heart Overall: regular rate 09/03/2017 None Full Exam - General 1994 Cardiovascular auscultation of heart Systolic murmur: holosystolic 09/03/2017 None Full Exam - General 1994 Cardiovascular auscultation of heart Systolic murmur grade: III/ 09/03/2017 None Full Exam - General 1994 Abdomen abdominal exam Overall: no tenderness 09/03/2017 None Full Exam - General 1994 Abdomen abdominal exam Overall: normal bowel sounds 09/03/2017 None Full Exam - General 1994 Musculoskeletal head and neck Overall: head atraumatic 09/03/2017 None Full Exam - General 1994 Musculoskeletal head and neck Overall: cervical spine benign 09/03/2017 None Full Exam - General 1994 Psychiatric orientation/consciousness Overall: oriented to person, place and time 09/03/2017 None Full Exam - General 1994 Psychiatric mood and affect Overall: normal mood and affect 09/03/2017 None Full Exam - General 1994 Psychiatric mood and affect Mood: happy 09/03/2017 None Full Exam - General 1994 Constitutional general appearance Overall: well developed 05/27/2017 None Full Exam - General 1994 Constitutional general appearance Overall: in no acute distress 05/27/2017 None Full Exam - General 1994 Constitutional general appearance Overall: well nourished 05/27/2017 None Full Exam - General 1994 Eyes pupils and irises Overall: pupils equal, round, reactive to light and accomodation 05/27/2017 None Full Exam - General 1994 Ears/Nose/Throat oral cavity/pharynx/larynx Overall: oral mucosa clear 05/27/2017 None Full Exam - General 1994 Ears/Nose/Throat oral cavity/pharynx/larynx Overall: oropharyngeal mucosa clear 05/27/2017 None Full Exam - General 1994 Ears/Nose/Throat oral cavity/pharynx/larynx Overall: no masses 05/27/2017 None Full Exam - General 1994 Respiratory auscultation Overall: breath sounds clear bilaterally 05/27/2017 None Full Exam - General 1994 Respiratory respiratory effort/rhythm Overall: no retractions 05/27/2017 None Full Exam - General 1994 Respiratory respiratory effort/rhythm Overall: normal rate 05/27/2017 None Full Exam - General 1994 Cardiovascular extremities Overall: no clubbing 05/27/2017 None Full Exam - General 1994 Cardiovascular auscultation of heart Overall: regular rate 05/27/2017 None Full Exam - General 1994 Cardiovascular auscultation of heart Systolic murmur: holosystolic 05/27/2017 None Full Exam - General 1994 Cardiovascular auscultation of heart Systolic murmur grade: III/ 05/27/2017 None Full Exam - General 1994 Abdomen abdominal exam Overall: no tenderness 05/27/2017 None Full Exam - General 1994 Abdomen abdominal exam Overall: normal bowel sounds 05/27/2017 None Full Exam - General 1994 Musculoskeletal head and neck Overall: head atraumatic 05/27/2017 None Full Exam - General 1994 Musculoskeletal head and neck Overall: cervical spine benign 05/27/2017 None Full Exam - General 1994 Psychiatric orientation/consciousness Overall: oriented to person, place and time 05/27/2017 None Full Exam - General 1994 Psychiatric mood and affect Overall: normal mood and affect 05/27/2017 None Full Exam - General 1994 Psychiatric mood and affect Mood: happy 05/27/2017 None Full Exam - General 1994 Constitutional general appearance Overall: well developed 04/27/2017 None Full Exam - General 1994 Constitutional general appearance Overall: in no acute distress 04/27/2017 None Full Exam - General 1994 Constitutional general appearance Overall: well nourished 04/27/2017 None Full Exam - General 1994 Eyes pupils and irises Overall: pupils equal, round, reactive to light and accomodation 04/27/2017 None Full Exam - General 1994 Ears/Nose/Throat oral cavity/pharynx/larynx Overall: oral mucosa clear 04/27/2017 None Full Exam - General 1994 Ears/Nose/Throat oral cavity/pharynx/larynx Overall: oropharyngeal mucosa clear 04/27/2017 None Full Exam - General 1994 Ears/Nose/Throat oral cavity/pharynx/larynx Overall: no masses 04/27/2017 None Full Exam - General 1994 Respiratory auscultation Overall: breath sounds clear bilaterally 04/27/2017 None Full Exam - General 1994 Respiratory respiratory effort/rhythm Overall: no retractions 04/27/2017 None Full Exam - General 1994 Respiratory respiratory effort/rhythm Overall: normal rate 04/27/2017 None Full Exam - General 1994 Cardiovascular extremities Overall: no clubbing 04/27/2017 None Full Exam - General 1994 Cardiovascular auscultation of heart Overall: regular rate 04/27/2017 None Full Exam - General 1994 Cardiovascular auscultation of heart Systolic murmur: holosystolic 04/27/2017 None Full Exam - General 1994 Cardiovascular auscultation of heart Systolic murmur grade: III/ 04/27/2017 None Full Exam - General 1994 Abdomen abdominal exam Overall: no tenderness 04/27/2017 None Full Exam - General 1994 Abdomen abdominal exam Overall: normal bowel sounds 04/27/2017 None Full Exam - General 1994 Psychiatric orientation/consciousness Overall: oriented to person, place and time 04/27/2017 None Full Exam - General 1994 Psychiatric mood and affect Overall: normal mood and affect 04/27/2017 None Full Exam - General 1994 Psychiatric mood and affect Mood: happy 04/27/2017 None Full Exam - General 1994 Musculoskeletal head and neck Overall: cervical spine benign 04/27/2017 None Full Exam - General 1994 Musculoskeletal head and neck Overall: head atraumatic 04/27/2017 None Full Exam - General 1994 Constitutional general appearance Overall: well developed 03/09/2017 None Full Exam - General 1994 Constitutional general appearance Overall: in no acute distress 03/09/2017 None Full Exam - General 1994 Constitutional general appearance Overall: well nourished 03/09/2017 None Full Exam - General 1994 Eyes pupils and irises Overall: pupils equal, round, reactive to light and accomodation 03/09/2017 None Full Exam - General 1994 Ears/Nose/Throat oral cavity/pharynx/larynx Overall: oral mucosa clear 03/09/2017 None Full Exam - General 1994 Ears/Nose/Throat oral cavity/pharynx/larynx Overall: oropharyngeal mucosa clear 03/09/2017 None Full Exam - General 1994 Ears/Nose/Throat oral cavity/pharynx/larynx Overall: no masses 03/09/2017 None Full Exam - General 1994 Respiratory auscultation Overall: breath sounds clear bilaterally 03/09/2017 None Full Exam - General 1994 Respiratory respiratory effort/rhythm Overall: no retractions 03/09/2017 None Full Exam - General 1994 Respiratory respiratory effort/rhythm Overall: normal rate 03/09/2017 None Full Exam - General 1994 Cardiovascular extremities Overall: no clubbing 03/09/2017 None Full Exam - General 1994 Cardiovascular auscultation of heart Overall: regular rate 03/09/2017 None Full Exam - General 1994 Cardiovascular auscultation of heart Systolic murmur: holosystolic 03/09/2017 None Full Exam - General 1994 Cardiovascular auscultation of heart Systolic murmur grade: III/ 03/09/2017 None Full Exam - General 1994 Abdomen abdominal exam Overall: no tenderness 03/09/2017 None Full Exam - General 1994 Abdomen abdominal exam Overall: normal bowel sounds 03/09/2017 None Full Exam - General 1994 Psychiatric orientation/consciousness Overall: oriented to person, place and time 03/09/2017 None Full Exam - General 1994 Psychiatric mood and affect Overall: normal mood and affect 03/09/2017 None Full Exam - General 1994 Psychiatric mood and affect Mood: happy 03/09/2017 None Full Exam - General 1994 Constitutional general appearance Overall: well developed 02/22/2017 None Full Exam - General 1994 Constitutional general appearance Overall: in no acute distress 02/22/2017 None Full Exam - General 1994 Constitutional general appearance Overall: well nourished 02/22/2017 None Full Exam - General 1994 Eyes pupils and irises Overall: pupils equal, round, reactive to light and accomodation 02/22/2017 None Full Exam - General 1994 Ears/Nose/Throat oral cavity/pharynx/larynx Overall: oral mucosa clear 02/22/2017 None Full Exam - General 1994 Ears/Nose/Throat oral cavity/pharynx/larynx Overall: oropharyngeal mucosa clear 02/22/2017 None Full Exam - General 1994 Ears/Nose/Throat oral cavity/pharynx/larynx Overall: no masses 02/22/2017 None Full Exam - General 1994 Respiratory auscultation Overall: breath sounds clear bilaterally 02/22/2017 None Full Exam - General 1994 Respiratory respiratory effort/rhythm Overall: no retractions 02/22/2017 None Full Exam - General 1994 Respiratory respiratory effort/rhythm Overall: normal rate 02/22/2017 None Full Exam - General 1994 Cardiovascular extremities Overall: no clubbing 02/22/2017 None Full Exam - General 1994 Cardiovascular auscultation of heart Overall: regular rate 02/22/2017 None Full Exam - General 1994 Cardiovascular auscultation of heart Systolic murmur: holosystolic 02/22/2017 None Full Exam - General 1994 Cardiovascular auscultation of heart Systolic murmur grade: III/ 02/22/2017 None Full Exam - General 1994 Abdomen abdominal exam Overall: no tenderness 02/22/2017 None Full Exam - General 1994 Abdomen abdominal exam Overall: normal bowel sounds 02/22/2017 None Full Exam - General 1994 Psychiatric orientation/consciousness Overall: oriented to person, place and time 02/22/2017 None Full Exam - General 1994 Psychiatric mood and affect Overall: normal mood and affect 02/22/2017 None Full Exam - General 1994 Psychiatric mood and affect Mood: happy 02/22/2017 None Full Exam - General 1994 Constitutional general appearance Overall: well developed 12/28/2016 None Full Exam - General 1994 Constitutional general appearance Overall: in no acute distress 12/28/2016 None Full Exam - General 1994 Constitutional general appearance Overall: well nourished 12/28/2016 None Full Exam - General 1994 Ears/Nose/Throat oral cavity/pharynx/larynx Overall: oral mucosa clear 12/28/2016 None Full Exam - General 1994 Respiratory respiratory effort/rhythm Overall: no retractions 12/28/2016 None Full Exam - General 1994 Respiratory respiratory effort/rhythm Overall: normal rate 12/28/2016 None Full Exam - General 1994 Cardiovascular extremities Overall: no clubbing 12/28/2016 None Full Exam - General 1994 Neurologic gait Overall: no ataxia, no unsteadiness 12/28/2016 None Full Exam - General 1994 Psychiatric orientation/consciousness Overall: oriented to person, place and time 12/28/2016 None Full Exam - General 1994 Psychiatric mood and affect Overall: normal mood and affect 12/28/2016 None Full Exam - General 1994 Psychiatric mood and affect Mood: happy 12/28/2016 None Full Exam - General 1994 Eyes conjunctiva /eyelids Overall: conjunctiva clear 12/28/2016 None Full Exam - General 1994 Eyes conjunctiva /eyelids Overall: eyelids normal 12/28/2016 None Full Exam - General 1994 Neurologic cranial nerves Overall: crainial nerves 2 - 12 grossly intact 12/28/2016 None Full Exam - General 1994 Psychiatric appearance Overall: well-groomed, good eye contact 12/28/2016 None Full Exam - General 1994 Constitutional general appearance Overall: well developed 12/24/2016 None Full Exam - General 1994 Constitutional general appearance Overall: in no acute distress 12/24/2016 None Full Exam - General 1994 Constitutional general appearance Overall: well nourished 12/24/2016 None Full Exam - General 1994 Eyes pupils and irises Overall: pupils equal, round, reactive to light and accomodation 12/24/2016 None Full Exam - General 1994 Ears/Nose/Throat oral cavity/pharynx/larynx Overall: oral mucosa clear 12/24/2016 None Full Exam - General 1994 Ears/Nose/Throat oral cavity/pharynx/larynx Overall: oropharyngeal mucosa clear 12/24/2016 None Full Exam - General 1994 Ears/Nose/Throat oral cavity/pharynx/larynx Overall: no masses 12/24/2016 None Full Exam - General 1994 Respiratory auscultation Overall: breath sounds clear bilaterally 12/24/2016 None Full Exam - General 1994 Respiratory respiratory effort/rhythm Overall: no retractions 12/24/2016 None Full Exam - General 1994 Respiratory respiratory effort/rhythm Overall: normal rate 12/24/2016 None Full Exam - General 1994 Cardiovascular extremities Overall: no clubbing 12/24/2016 None Full Exam - General 1994 Cardiovascular auscultation of heart Overall: regular rate 12/24/2016 None Full Exam - General 1994 Cardiovascular auscultation of heart Systolic murmur: holosystolic 12/24/2016 None Full Exam - General 1994 Cardiovascular auscultation of heart Systolic murmur grade: III/ 12/24/2016 None Full Exam - General 1994 Abdomen abdominal exam Overall: no tenderness 12/24/2016 None Full Exam - General 1994 Abdomen abdominal exam Overall: normal bowel sounds 12/24/2016 None Full Exam - General 1994 Lymphatic neck nodes Overall: anterior cervical chain benign 12/24/2016 None Full Exam - General 1994 Lymphatic neck nodes Overall: posterior cervical chain benign 12/24/2016 None Full Exam - General 1994 Neurologic gait Overall: no ataxia, no unsteadiness 12/24/2016 None Full Exam - General 1994 Psychiatric orientation/consciousness Overall: oriented to person, place and time 12/24/2016 None Full Exam - General 1994 Psychiatric mood and affect Overall: normal mood and affect 12/24/2016 None Full Exam - General 1994 Psychiatric mood and affect Mood: happy 12/24/2016 None Full Exam - Dermatology Constitutional general appearance Overall: well nourished 10/06/2016 None Full Exam - Dermatology Constitutional general appearance Overall: well developed 10/06/2016 None Full Exam - Dermatology Constitutional general appearance Overall: in no acute distress 10/06/2016 None Full Exam - Dermatology Constitutional general appearance Overall: of normal body habitus 10/06/2016 None Full Exam - Dermatology Constitutional general appearance Overall: well groomed 10/06/2016 None Full Exam - Dermatology Psychiatric orientation Overall: oriented to person, place and time 10/06/2016 None Full Exam - Dermatology Respiratory auscultation Overall: breath sounds clear bilaterally 10/06/2016 None Full Exam - Dermatology Respiratory respiratory effort/rhythm Overall: no retractions 10/06/2016 None Full Exam - Dermatology Respiratory respiratory effort/rhythm Overall: normal rate 10/06/2016 None Full Exam - Dermatology Integument insp & palp - chest/axillae Lesion: wheal 10/06/2016 None Full Exam - Dermatology Integument insp & palp - chest/axillae Distribution: localized 10/06/2016 None Full Exam - Dermatology Integument insp & palp - chest/axillae Location: on the upper chest 10/06/2016 None Full Exam - Dermatology Integument insp & palp - back Location: on the lower back 10/06/2016 left and right flank- Full Exam - Dermatology Integument insp & palp - back Color: erythematous 10/06/2016 None Full Exam - Dermatology Integument insp & palp - back Lesion: wheal 10/06/2016 None Full Exam - General 1994 Constitutional general appearance Overall: well developed 10/01/2016 None Full Exam - General 1994 Constitutional general appearance Overall: in no acute distress 10/01/2016 None Full Exam - General 1994 Constitutional general appearance Overall: well nourished 10/01/2016 None Full Exam - General 1994 Eyes pupils and irises Overall: pupils equal, round, reactive to light and accomodation 10/01/2016 None Full Exam - General 1994 Ears/Nose/Throat oral cavity/pharynx/larynx Overall: oral mucosa clear 10/01/2016 None Full Exam - General 1994 Ears/Nose/Throat oral cavity/pharynx/larynx Overall: oropharyngeal mucosa clear 10/01/2016 None Full Exam - General 1994 Ears/Nose/Throat oral cavity/pharynx/larynx Overall: no masses 10/01/2016 None Full Exam - General 1994 Respiratory auscultation Overall: breath sounds clear bilaterally 10/01/2016 None Full Exam - General 1994 Respiratory respiratory effort/rhythm Overall: no retractions 10/01/2016 None Full Exam - General 1994 Respiratory respiratory effort/rhythm Overall: normal rate 10/01/2016 None Full Exam - General 1994 Cardiovascular extremities Overall: no clubbing 10/01/2016 None Full Exam - General 1994 Cardiovascular auscultation of heart Overall: regular rate 10/01/2016 None Full Exam - General 1994 Cardiovascular auscultation of heart Systolic murmur: holosystolic 10/01/2016 None Full Exam - General 1994 Cardiovascular auscultation of heart Systolic murmur grade: III/ 10/01/2016 None Full Exam - General 1994 Abdomen abdominal exam Overall: no tenderness 10/01/2016 None Full Exam - General 1994 Abdomen abdominal exam Overall: normal bowel sounds 10/01/2016 None Full Exam - General 1994 Lymphatic neck nodes Overall: anterior cervical chain benign 10/01/2016 None Full Exam - General 1994 Lymphatic neck nodes Overall: posterior cervical chain benign 10/01/2016 None Full Exam - General 1994 Neurologic gait Overall: no ataxia, no unsteadiness 10/01/2016 None Full Exam - General 1994 Psychiatric orientation/consciousness Overall: oriented to person, place and time 10/01/2016 None Full Exam - General 1994 Psychiatric mood and affect Overall: normal mood and affect 10/01/2016 None Full Exam - General 1994 Psychiatric mood and affect Mood: happy 10/01/2016 None Full Exam - General 1994 Constitutional general appearance Overall: well developed 09/01/2016 None Full Exam - General 1994 Constitutional general appearance Overall: in no acute distress 09/01/2016 None Full Exam - General 1994 Constitutional general appearance Overall: well nourished 09/01/2016 None Full Exam - General 1994 Eyes pupils and irises Overall: pupils equal, round, reactive to light and accomodation 09/01/2016 None Full Exam - General 1994 Ears/Nose/Throat oral cavity/pharynx/larynx Overall: oral mucosa clear 09/01/2016 None Full Exam - General 1994 Ears/Nose/Throat oral cavity/pharynx/larynx Overall: oropharyngeal mucosa clear 09/01/2016 None Full Exam - General 1994 Ears/Nose/Throat oral cavity/pharynx/larynx Overall: no masses 09/01/2016 None Full Exam - General 1994 Respiratory auscultation Overall: breath sounds clear bilaterally 09/01/2016 None Full Exam - General 1994 Respiratory respiratory effort/rhythm Overall: no retractions 09/01/2016 None Full Exam - General 1994 Respiratory respiratory effort/rhythm Overall: normal rate 09/01/2016 None Full Exam - General 1994 Cardiovascular extremities Overall: no clubbing 09/01/2016 None Full Exam - General 1994 Cardiovascular auscultation of heart Overall: regular rate 09/01/2016 None Full Exam - General 1994 Cardiovascular auscultation of heart Systolic murmur: holosystolic 09/01/2016 None Full Exam - General 1994 Cardiovascular auscultation of heart Systolic murmur grade: III/ 09/01/2016 None Full Exam - General 1994 Abdomen abdominal exam Overall: no tenderness 09/01/2016 None Full Exam - General 1994 Abdomen abdominal exam Overall: normal bowel sounds 09/01/2016 None Full Exam - General 1994 Lymphatic neck nodes Overall: anterior cervical chain benign 09/01/2016 None Full Exam - General 1994 Lymphatic neck nodes Overall: posterior cervical chain benign 09/01/2016 None Full Exam - General 1994 Neurologic gait Overall: no ataxia, no unsteadiness 09/01/2016 None Full Exam - General 1994 Psychiatric orientation/consciousness Overall: oriented to person, place and time 09/01/2016 None Full Exam - General 1994 Psychiatric mood and affect Overall: normal mood and affect 09/01/2016 None Full Exam - General 1994 Psychiatric mood and affect Mood: happy 09/01/2016 None Full Exam - General 1994 Musculoskeletal lower extremity ROM - foot: pain with ROM 09/01/2016 None Full Exam - General 1994 Constitutional general appearance Overall: well developed 08/11/2016 None Full Exam - General 1994 Constitutional general appearance Overall: in no acute distress 08/11/2016 None Full Exam - General 1994 Constitutional general appearance Overall: well nourished 08/11/2016 None Full Exam - General 1994 Eyes pupils and irises Overall: pupils equal, round, reactive to light and accomodation 08/11/2016 None Full Exam - General 1994 Ears/Nose/Throat oral cavity/pharynx/larynx Overall: oral mucosa clear 08/11/2016 None Full Exam - General 1994 Ears/Nose/Throat oral cavity/pharynx/larynx Overall: oropharyngeal mucosa clear 08/11/2016 None Full Exam - General 1994 Ears/Nose/Throat oral cavity/pharynx/larynx Overall: no masses 08/11/2016 None Full Exam - General 1994 Respiratory auscultation Overall: breath sounds clear bilaterally 08/11/2016 None Full Exam - General 1994 Respiratory respiratory effort/rhythm Overall: no retractions 08/11/2016 None Full Exam - General 1994 Respiratory respiratory effort/rhythm Overall: normal rate 08/11/2016 None Full Exam - General 1994 Cardiovascular extremities Overall: no clubbing 08/11/2016 None Full Exam - General 1994 Cardiovascular auscultation of heart Overall: regular rate 08/11/2016 None Full Exam - General 1994 Cardiovascular auscultation of heart Systolic murmur: holosystolic 08/11/2016 None Full Exam - General 1994 Cardiovascular auscultation of heart Systolic murmur grade: III/ 08/11/2016 None Full Exam - General 1994 Integument inspection of skin Dermatitis: dryness/ flaking 08/11/2016 on dorsum of hands near knuckles --Improved Full Exam - General 1994 Neurologic gait Overall: no ataxia, no unsteadiness 08/11/2016 None Full Exam - General 1994 Psychiatric orientation/consciousness Overall: oriented to person, place and time 08/11/2016 None Full Exam - General 1994 Psychiatric mood and affect Overall: normal mood and affect 08/11/2016 None Full Exam - General 1994 Psychiatric mood and affect Mood: happy 08/11/2016 None Full Exam - General 1994 Abdomen abdominal exam Overall: no tenderness 08/11/2016 None Full Exam - General 1994 Abdomen abdominal exam Overall: normal bowel sounds 08/11/2016 None Full Exam - General 1994 Constitutional general appearance Overall: well developed 07/01/2016 None Full Exam - General 1994 Constitutional general appearance Overall: in no acute distress 07/01/2016 None Full Exam - General 1994 Constitutional general appearance Overall: well nourished 07/01/2016 None Full Exam - General 1994 Eyes pupils and irises Overall: pupils equal, round, reactive to light and accomodation 07/01/2016 None Full Exam - General 1994 Ears/Nose/Throat oral cavity/pharynx/larynx Overall: oral mucosa clear 07/01/2016 None Full Exam - General 1994 Ears/Nose/Throat oral cavity/pharynx/larynx Overall: oropharyngeal mucosa clear 07/01/2016 None Full Exam - General 1994 Ears/Nose/Throat oral cavity/pharynx/larynx Overall: no masses 07/01/2016 None Full Exam - General 1994 Respiratory auscultation Overall: breath sounds clear bilaterally 07/01/2016 None Full Exam - General 1994 Respiratory respiratory effort/rhythm Overall: no retractions 07/01/2016 None Full Exam - General 1994 Respiratory respiratory effort/rhythm Overall: normal rate 07/01/2016 None Full Exam - General 1994 Cardiovascular extremities Overall: no clubbing 07/01/2016 None Full Exam - General 1994 Cardiovascular auscultation of heart Overall: regular rate 07/01/2016 None Full Exam - General 1994 Cardiovascular auscultation of heart Systolic murmur: holosystolic 07/01/2016 None Full Exam - General 1994 Cardiovascular auscultation of heart Systolic murmur grade: III/ 07/01/2016 None Full Exam - General 1994 Neurologic gait Overall: no ataxia, no unsteadiness 07/01/2016 None Full Exam - General 1994 Psychiatric orientation/consciousness Overall: oriented to person, place and time 07/01/2016 None Full Exam - General 1994 Psychiatric mood and affect Overall: normal mood and affect 07/01/2016 None Full Exam - General 1994 Psychiatric mood and affect Mood: happy 07/01/2016 None Full Exam - General 1994 Integument inspection of skin Dermatitis: dryness/ flaking 07/01/2016 on dorsum of hands near knuckles Full Exam - General 1994 Constitutional general appearance Overall: well developed 04/23/2016 None Full Exam - General 1994 Constitutional general appearance Overall: in no acute distress 04/23/2016 None Full Exam - General 1994 Constitutional general appearance Overall: well nourished 04/23/2016 None Full Exam - General 1994 Eyes pupils and irises Overall: pupils equal, round, reactive to light and accomodation 04/23/2016 None Full Exam - General 1994 Ears/Nose/Throat oral cavity/pharynx/larynx Overall: oral mucosa clear 04/23/2016 None Full Exam - General 1994 Ears/Nose/Throat oral cavity/pharynx/larynx Overall: oropharyngeal mucosa clear 04/23/2016 None Full Exam - General 1994 Ears/Nose/Throat oral cavity/pharynx/larynx Overall: no masses 04/23/2016 None Full Exam - General 1994 Respiratory auscultation Overall: breath sounds clear bilaterally 04/23/2016 None Full Exam - General 1994 Respiratory respiratory effort/rhythm Overall: no retractions 04/23/2016 None Full Exam - General 1994 Respiratory respiratory effort/rhythm Overall: normal rate 04/23/2016 None Full Exam - General 1994 Cardiovascular extremities Overall: no clubbing 04/23/2016 None Full Exam - General 1994 Cardiovascular auscultation of heart Overall: regular rate 04/23/2016 None Full Exam - General 1994 Cardiovascular auscultation of heart Systolic murmur: holosystolic 04/23/2016 None Full Exam - General 1994 Cardiovascular auscultation of heart Systolic murmur grade: III/ 04/23/2016 None Full Exam - General 1994 Abdomen abdominal exam Overall: no tenderness 04/23/2016 None Full Exam - General 1994 Abdomen abdominal exam Overall: normal bowel sounds 04/23/2016 None Full Exam - General 1994 Lymphatic neck nodes Overall: anterior cervical chain benign 04/23/2016 None Full Exam - General 1994 Lymphatic neck nodes Overall: posterior cervical chain benign 04/23/2016 None Full Exam - General 1994 Musculoskeletal digits and nails DIPs: swelling 04/23/2016 None Full Exam - General 1994 Musculoskeletal digits and nails DIPs: nodule 04/23/2016 None Full Exam - General 1994 Musculoskeletal digits and nails PIPs: nodule 04/23/2016 None Full Exam - General 1994 Musculoskeletal upper extremity Palpation - shoulder: tenderness @ subacromial space 04/23/2016 None Full Exam - General 1994 Musculoskeletal upper extremity Palpation - shoulder: tenderness @ bicipital groove 04/23/2016 None Full Exam - General 1994 Neurologic gait Overall: no ataxia, no unsteadiness 04/23/2016 None Full Exam - General 1994 Psychiatric orientation/consciousness Overall: oriented to person, place and time 04/23/2016 None Full Exam - General 1994 Psychiatric mood and affect Overall: normal mood and affect 04/23/2016 None Full Exam - General 1994 Psychiatric mood and affect Mood: happy 04/23/2016 None Full Exam - General 1994 Constitutional general appearance Overall: well developed 03/03/2016 None Full Exam - General 1994 Constitutional general appearance Overall: in no acute distress 03/03/2016 None Full Exam - General 1994 Constitutional general appearance Overall: well nourished 03/03/2016 None Full Exam - General 1994 Eyes pupils and irises Overall: pupils equal, round, reactive to light and accomodation 03/03/2016 None Full Exam - General 1994 Ears/Nose/Throat oral cavity/pharynx/larynx Overall: oral mucosa clear 03/03/2016 None Full Exam - General 1994 Ears/Nose/Throat oral cavity/pharynx/larynx Overall: oropharyngeal mucosa clear 03/03/2016 None Full Exam - General 1994 Ears/Nose/Throat oral cavity/pharynx/larynx Overall: no masses 03/03/2016 None Full Exam - General 1994 Respiratory auscultation Overall: breath sounds clear bilaterally 03/03/2016 None Full Exam - General 1994 Respiratory respiratory effort/rhythm Overall: no retractions 03/03/2016 None Full Exam - General 1994 Respiratory respiratory effort/rhythm Overall: normal rate 03/03/2016 None Full Exam - General 1994 Cardiovascular extremities Overall: no clubbing 03/03/2016 None Full Exam - General 1994 Cardiovascular auscultation of heart Overall: regular rate 03/03/2016 None Full Exam - General 1994 Cardiovascular auscultation of heart Systolic murmur: holosystolic 03/03/2016 None Full Exam - General 1994 Cardiovascular auscultation of heart Systolic murmur grade: III/ 03/03/2016 None Full Exam - General 1994 Abdomen abdominal exam Overall: no tenderness 03/03/2016 None Full Exam - General 1994 Abdomen abdominal exam Overall: normal bowel sounds 03/03/2016 None Full Exam - General 1994 Lymphatic neck nodes Overall: anterior cervical chain benign 03/03/2016 None Full Exam - General 1994 Lymphatic neck nodes Overall: posterior cervical chain benign 03/03/2016 None Full Exam - General 1994 Musculoskeletal digits and nails DIPs: swelling 03/03/2016 None Full Exam - General 1994 Musculoskeletal digits and nails DIPs: nodule 03/03/2016 None Full Exam - General 1994 Musculoskeletal digits and nails PIPs: nodule 03/03/2016 None Full Exam - General 1994 Musculoskeletal upper extremity Palpation - shoulder: tenderness @ subacromial space 03/03/2016 None Full Exam - General 1994 Musculoskeletal upper extremity Palpation - shoulder: tenderness @ bicipital groove 03/03/2016 None Full Exam - General 1994 Neurologic gait Overall: no ataxia, no unsteadiness 03/03/2016 None Full Exam - General 1994 Psychiatric orientation/consciousness Overall: oriented to person, place and time 03/03/2016 None Full Exam - General 1994 Psychiatric mood and affect Overall: normal mood and affect 03/03/2016 None Full Exam - General 1994 Psychiatric mood and affect Mood: happy 03/03/2016 None Full Exam - General 1994 Constitutional general appearance Overall: well developed 01/14/2016 None Full Exam - General 1994 Constitutional general appearance Overall: in no acute distress 01/14/2016 None Full Exam - General 1994 Constitutional general appearance Overall: well nourished 01/14/2016 None Full Exam - General 1994 Eyes pupils and irises Overall: pupils equal, round, reactive to light and accomodation 01/14/2016 None Full Exam - General 1994 Ears/Nose/Throat oral cavity/pharynx/larynx Overall: oral mucosa clear 01/14/2016 None Full Exam - General 1994 Ears/Nose/Throat oral cavity/pharynx/larynx Overall: oropharyngeal mucosa clear 01/14/2016 None Full Exam - General 1994 Ears/Nose/Throat oral cavity/pharynx/larynx Overall: no masses 01/14/2016 None Full Exam - General 1994 Respiratory auscultation Overall: breath sounds clear bilaterally 01/14/2016 None Full Exam - General 1994 Respiratory respiratory effort/rhythm Overall: no retractions 01/14/2016 None Full Exam - General 1994 Respiratory respiratory effort/rhythm Overall: normal rate 01/14/2016 None Full Exam - General 1994 Cardiovascular extremities Overall: no clubbing 01/14/2016 None Full Exam - General 1994 Cardiovascular auscultation of heart Overall: regular rate 01/14/2016 None Full Exam - General 1994 Cardiovascular auscultation of heart Systolic murmur: holosystolic 01/14/2016 None Full Exam - General 1994 Cardiovascular auscultation of heart Systolic murmur grade: III/ 01/14/2016 None Full Exam - General 1994 Psychiatric orientation/consciousness Overall: oriented to person, place and time 01/14/2016 None Full Exam - General 1994 Psychiatric mood and affect Overall: normal mood and affect 01/14/2016 None Full Exam - General 1994 Psychiatric mood and affect Mood: happy 01/14/2016 None Full Exam - General 1994 Integument inspection of skin Dermatitis: dryness/ flaking 01/14/2016 None Full Exam - General 1994 Integument inspection of skin Dermatitis: scaling 01/14/2016 on hands, ankles, patches of skin with numular eczema Full Exam - General 1994 Constitutional general appearance Overall: well developed 12/03/2015 None Full Exam - General 1994 Constitutional general appearance Overall: in no acute distress 12/03/2015 None Full Exam - General 1994 Constitutional general appearance Overall: well nourished 12/03/2015 None Full Exam - General 1994 Eyes pupils and irises Overall: pupils equal, round, reactive to light and accomodation 12/03/2015 None Full Exam - General 1994 Ears/Nose/Throat oral cavity/pharynx/larynx Overall: oral mucosa clear 12/03/2015 None Full Exam - General 1994 Respiratory auscultation Overall: breath sounds clear bilaterally 12/03/2015 None Full Exam - General 1994 Respiratory respiratory effort/rhythm Overall: no retractions 12/03/2015 None Full Exam - General 1994 Respiratory respiratory effort/rhythm Overall: normal rate 12/03/2015 None Full Exam - General 1994 Cardiovascular extremities Overall: no clubbing 12/03/2015 None Full Exam - General 1994 Cardiovascular auscultation of heart Overall: regular rate 12/03/2015 None Full Exam - General 1994 Cardiovascular auscultation of heart Systolic murmur: holosystolic 12/03/2015 None Full Exam - General 1994 Cardiovascular auscultation of heart Systolic murmur grade: III/ 12/03/2015 None Full Exam - General 1994 Abdomen abdominal exam Overall: normal bowel sounds 12/03/2015 None Full Exam - General 1994 Neurologic gait Overall: no ataxia, no unsteadiness 12/03/2015 None Full Exam - General 1994 Psychiatric orientation/consciousness Overall: oriented to person, place and time 12/03/2015 None Full Exam - General 1994 Psychiatric mood and affect Overall: normal mood and affect 12/03/2015 None Full Exam - General 1994 Ears/Nose/Throat lips/teeth/gingiva Overall: benign lips 12/03/2015 None Full Exam - General 1994 Musculoskeletal spine, ribs and pelvis Overall: good posture 12/03/2015 None Full Exam - General 1994 Musculoskeletal gait and station Overall: normal gait 12/03/2015 None Full Exam - General 1994 Musculoskeletal gait and station Overall: normal station 12/03/2015 None Full Exam - General 1994 Psychiatric appearance Overall: well-groomed, good eye contact 12/03/2015 None Full Exam - General 1994 Psychiatric speech Overall: normal quality, no aphasia 12/03/2015 None Full Exam - General 1994 Psychiatric speech Overall: normal quality, quantity, rate 12/03/2015 None Full Exam - General 1994 Constitutional general appearance Overall: well developed 10/10/2015 None Full Exam - General 1994 Constitutional general appearance Overall: in no acute distress 10/10/2015 None Full Exam - General 1994 Constitutional general appearance Overall: well nourished 10/10/2015 None Full Exam - General 1994 Eyes pupils and irises Overall: pupils equal, round, reactive to light and accomodation 10/10/2015 None Full Exam - General 1994 Ears/Nose/Throat oral cavity/pharynx/larynx Overall: oral mucosa clear 10/10/2015 None Full Exam - General 1994 Ears/Nose/Throat oral cavity/pharynx/larynx Overall: oropharyngeal mucosa clear 10/10/2015 None Full Exam - General 1994 Ears/Nose/Throat oral cavity/pharynx/larynx Overall: no masses 10/10/2015 None Full Exam - General 1994 Respiratory auscultation Overall: breath sounds clear bilaterally 10/10/2015 None Full Exam - General 1994 Respiratory respiratory effort/rhythm Overall: no retractions 10/10/2015 None Full Exam - General 1994 Respiratory respiratory effort/rhythm Overall: normal rate 10/10/2015 None Full Exam - General 1994 Cardiovascular extremities Overall: no clubbing 10/10/2015 None Full Exam - General 1994 Cardiovascular auscultation of heart Overall: regular rate 10/10/2015 None Full Exam - General 1994 Cardiovascular auscultation of heart Systolic murmur: holosystolic 10/10/2015 None Full Exam - General 1994 Cardiovascular auscultation of heart Systolic murmur grade: III/ 10/10/2015 None Full Exam - General 1994 Abdomen abdominal exam Overall: no tenderness 10/10/2015 None Full Exam - General 1994 Abdomen abdominal exam Overall: normal bowel sounds 10/10/2015 None Full Exam - General 1994 Lymphatic neck nodes Overall: anterior cervical chain benign 10/10/2015 None Full Exam - General 1994 Lymphatic neck nodes Overall: posterior cervical chain benign 10/10/2015 None Full Exam - General 1994 Musculoskeletal digits and nails DIPs: swelling 10/10/2015 None Full Exam - General 1994 Musculoskeletal digits and nails DIPs: nodule 10/10/2015 None Full Exam - General 1994 Musculoskeletal digits and nails PIPs: nodule 10/10/2015 None Full Exam - General 1994 Musculoskeletal upper extremity Palpation - shoulder: tenderness @ subacromial space 10/10/2015 None Full Exam - General 1994 Musculoskeletal upper extremity Palpation - shoulder: tenderness @ bicipital groove 10/10/2015 None Full Exam - General 1994 Neurologic gait Overall: no ataxia, no unsteadiness 10/10/2015 None Full Exam - General 1994 Psychiatric orientation/consciousness Overall: oriented to person, place and time 10/10/2015 None Full Exam - General 1994 Psychiatric mood and affect Overall: normal mood and affect 10/10/2015 None Full Exam - General 1994 Psychiatric mood and affect Mood: happy 10/10/2015 None Full Exam - General 1994 Constitutional general appearance Overall: well developed 08/28/2015 None Full Exam - General 1994 Constitutional general appearance Overall: in no acute distress 08/28/2015 None Full Exam - General 1994 Constitutional general appearance Overall: well nourished 08/28/2015 None Full Exam - General 1994 Eyes pupils and irises Overall: pupils equal, round, reactive to light and accomodation 08/28/2015 None Full Exam - General 1994 Ears/Nose/Throat oral cavity/pharynx/larynx Overall: oral mucosa clear 08/28/2015 None Full Exam - General 1994 Ears/Nose/Throat oral cavity/pharynx/larynx Overall: oropharyngeal mucosa clear 08/28/2015 None Full Exam - General 1994 Ears/Nose/Throat oral cavity/pharynx/larynx Overall: no masses 08/28/2015 None Full Exam - General 1994 Respiratory auscultation Overall: breath sounds clear bilaterally 08/28/2015 None Full Exam - General 1994 Respiratory respiratory effort/rhythm Overall: no retractions 08/28/2015 None Full Exam - General 1994 Respiratory respiratory effort/rhythm Overall: normal rate 08/28/2015 None Full Exam - General 1994 Cardiovascular extremities Overall: no clubbing 08/28/2015 None Full Exam - General 1994 Cardiovascular auscultation of heart Overall: regular rate 08/28/2015 None Full Exam - General 1994 Cardiovascular auscultation of heart Systolic murmur: holosystolic 08/28/2015 None Full Exam - General 1994 Cardiovascular auscultation of heart Systolic murmur grade: III/ 08/28/2015 None Full Exam - General 1994 Abdomen abdominal exam Overall: no tenderness 08/28/2015 None Full Exam - General 1994 Abdomen abdominal exam Overall: normal bowel sounds 08/28/2015 None Full Exam - General 1994 Lymphatic neck nodes Overall: anterior cervical chain benign 08/28/2015 None Full Exam - General 1994 Lymphatic neck nodes Overall: posterior cervical chain benign 08/28/2015 None Full Exam - General 1994 Musculoskeletal digits and nails DIPs: swelling 08/28/2015 None Full Exam - General 1994 Musculoskeletal digits and nails DIPs: nodule 08/28/2015 None Full Exam - General 1994 Musculoskeletal digits and nails PIPs: nodule 08/28/2015 None Full Exam - General 1994 Neurologic gait Overall: no ataxia, no unsteadiness 08/28/2015 None Full Exam - General 1994 Psychiatric orientation/consciousness Overall: oriented to person, place and time 08/28/2015 None Full Exam - General 1994 Psychiatric mood and affect Overall: normal mood and affect 08/28/2015 None Full Exam - General 1994 Psychiatric mood and affect Mood: happy 08/28/2015 None Full Exam - General 1994 Musculoskeletal upper extremity Palpation - shoulder: tenderness @ subacromial space 08/28/2015 None Full Exam - General 1994 Musculoskeletal upper extremity Palpation - shoulder: tenderness @ bicipital groove 08/28/2015 None Full Exam - General 1994 Constitutional general appearance Overall: well developed 06/12/2015 None Full Exam - General 1994 Constitutional general appearance Overall: in no acute distress 06/12/2015 None Full Exam - General 1994 Constitutional general appearance Overall: well nourished 06/12/2015 None Full Exam - General 1994 Eyes pupils and irises Overall: pupils equal, round, reactive to light and accomodation 06/12/2015 None Full Exam - General 1994 Ears/Nose/Throat oral cavity/pharynx/larynx Overall: oral mucosa clear 06/12/2015 None Full Exam - General 1994 Ears/Nose/Throat oral cavity/pharynx/larynx Overall: oropharyngeal mucosa clear 06/12/2015 None Full Exam - General 1994 Ears/Nose/Throat oral cavity/pharynx/larynx Overall: no masses 06/12/2015 None Full Exam - General 1994 Respiratory auscultation Overall: breath sounds clear bilaterally 06/12/2015 None Full Exam - General 1994 Respiratory respiratory effort/rhythm Overall: no retractions 06/12/2015 None Full Exam - General 1994 Respiratory respiratory effort/rhythm Overall: normal rate 06/12/2015 None Full Exam - General 1994 Cardiovascular extremities Overall: no clubbing 06/12/2015 None Full Exam - General 1994 Cardiovascular auscultation of heart Overall: regular rate 06/12/2015 None Full Exam - General 1994 Cardiovascular auscultation of heart Systolic murmur: holosystolic 06/12/2015 None Full Exam - General 1994 Cardiovascular auscultation of heart Systolic murmur grade: III/ 06/12/2015 None Full Exam - General 1994 Abdomen abdominal exam Overall: no tenderness 06/12/2015 None Full Exam - General 1994 Abdomen abdominal exam Overall: normal bowel sounds 06/12/2015 None Full Exam - General 1994 Lymphatic neck nodes Overall: anterior cervical chain benign 06/12/2015 None Full Exam - General 1994 Lymphatic neck nodes Overall: posterior cervical chain benign 06/12/2015 None Full Exam - General 1994 Musculoskeletal digits and nails DIPs: swelling 06/12/2015 None Full Exam - General 1994 Musculoskeletal digits and nails DIPs: nodule 06/12/2015 None Full Exam - General 1994 Musculoskeletal digits and nails PIPs: nodule 06/12/2015 None Full Exam - General 1994 Neurologic gait Overall: no ataxia, no unsteadiness 06/12/2015 None Full Exam - General 1994 Psychiatric orientation/consciousness Overall: oriented to person, place and time 06/12/2015 None Full Exam - General 1994 Psychiatric mood and affect Overall: normal mood and affect 06/12/2015 None Full Exam - General 1994 Psychiatric mood and affect Mood: happy 06/12/2015 None Full Exam - General 1994 Constitutional general appearance Overall: well developed 05/09/2015 None Full Exam - General 1994 Constitutional general appearance Overall: in no acute distress 05/09/2015 None Full Exam - General 1994 Constitutional general appearance Overall: well nourished 05/09/2015 None Full Exam - General 1994 Eyes pupils and irises Overall: pupils equal, round, reactive to light and accomodation 05/09/2015 None Full Exam - General 1994 Ears/Nose/Throat oral cavity/pharynx/larynx Overall: oral mucosa clear 05/09/2015 None Full Exam - General 1994 Ears/Nose/Throat oral cavity/pharynx/larynx Overall: oropharyngeal mucosa clear 05/09/2015 None Full Exam - General 1994 Ears/Nose/Throat oral cavity/pharynx/larynx Overall: no masses 05/09/2015 None Full Exam - General 1994 Respiratory auscultation Overall: breath sounds clear bilaterally 05/09/2015 None Full Exam - General 1994 Respiratory respiratory effort/rhythm Overall: no retractions 05/09/2015 None Full Exam - General 1994 Respiratory respiratory effort/rhythm Overall: normal rate 05/09/2015 None Full Exam - General 1994 Cardiovascular extremities Overall: no clubbing 05/09/2015 None Full Exam - General 1994 Cardiovascular auscultation of heart Overall: regular rate 05/09/2015 None Full Exam - General 1994 Cardiovascular auscultation of heart Systolic murmur: holosystolic 05/09/2015 None Full Exam - General 1994 Cardiovascular auscultation of heart Systolic murmur grade: III/ 05/09/2015 None Full Exam - General 1994 Abdomen abdominal exam Overall: no tenderness 05/09/2015 None Full Exam - General 1994 Abdomen abdominal exam Overall: normal bowel sounds 05/09/2015 None Full Exam - General 1994 Lymphatic neck nodes Overall: anterior cervical chain benign 05/09/2015 None Full Exam - General 1994 Lymphatic neck nodes Overall: posterior cervical chain benign 05/09/2015 None Full Exam - General 1994 Musculoskeletal digits and nails DIPs: swelling 05/09/2015 None Full Exam - General 1994 Musculoskeletal digits and nails DIPs: nodule 05/09/2015 None Full Exam - General 1994 Musculoskeletal digits and nails PIPs: nodule 05/09/2015 None Full Exam - General 1994 Neurologic gait Overall: no ataxia, no unsteadiness 05/09/2015 None Full Exam - General 1994 Psychiatric orientation/consciousness Overall: oriented to person, place and time 05/09/2015 None Full Exam - General 1994 Psychiatric mood and affect Overall: normal mood and affect 05/09/2015 None Full Exam - General 1994 Psychiatric mood and affect Mood: happy 05/09/2015 None Full Exam - General 1994 Constitutional general appearance Overall: well developed 04/12/2015 None Full Exam - General 1994 Constitutional general appearance Overall: in no acute distress 04/12/2015 None Full Exam - General 1994 Constitutional general appearance Overall: well nourished 04/12/2015 None Full Exam - General 1994 Eyes pupils and irises Overall: pupils equal, round, reactive to light and accomodation 04/12/2015 None Full Exam - General 1994 Ears/Nose/Throat oral cavity/pharynx/larynx Overall: oral mucosa clear 04/12/2015 None Full Exam - General 1994 Ears/Nose/Throat oral cavity/pharynx/larynx Overall: oropharyngeal mucosa clear 04/12/2015 None Full Exam - General 1994 Ears/Nose/Throat oral cavity/pharynx/larynx Overall: no masses 04/12/2015 None Full Exam - General 1994 Respiratory auscultation Overall: breath sounds clear bilaterally 04/12/2015 None Full Exam - General 1994 Respiratory respiratory effort/rhythm Overall: no retractions 04/12/2015 None Full Exam - General 1994 Respiratory respiratory effort/rhythm Overall: normal rate 04/12/2015 None Full Exam - General 1994 Cardiovascular extremities Overall: no clubbing 04/12/2015 None Full Exam - General 1994 Cardiovascular auscultation of heart Overall: regular rate 04/12/2015 None Full Exam - General 1994 Cardiovascular auscultation of heart Systolic murmur: holosystolic 04/12/2015 None Full Exam - General 1994 Cardiovascular auscultation of heart Systolic murmur grade: III/ 04/12/2015 None Full Exam - General 1994 Abdomen abdominal exam Overall: no tenderness 04/12/2015 None Full Exam - General 1994 Abdomen abdominal exam Overall: normal bowel sounds 04/12/2015 None Full Exam - General 1994 Abdomen rectal exam Inspection: thrombosed hemorrhoid 04/12/2015 None Full Exam - General 1994 Lymphatic neck nodes Overall: anterior cervical chain benign 04/12/2015 None Full Exam - General 1994 Lymphatic neck nodes Overall: posterior cervical chain benign 04/12/2015 None Full Exam - General 1994 Musculoskeletal digits and nails DIPs: swelling 04/12/2015 None Full Exam - General 1994 Musculoskeletal digits and nails DIPs: nodule 04/12/2015 None Full Exam - General 1994 Musculoskeletal digits and nails PIPs: nodule 04/12/2015 None Full Exam - General 1994 Neurologic gait Overall: no ataxia, no unsteadiness 04/12/2015 None Full Exam - General 1994 Psychiatric orientation/consciousness Overall: oriented to person, place and time 04/12/2015 None Full Exam - General 1994 Psychiatric mood and affect Overall: normal mood and affect 04/12/2015 None Full Exam - General 1994 Psychiatric mood and affect Mood: happy 04/12/2015 None Full Exam - General 1994 Constitutional general appearance Overall: well developed 03/12/2015 None Full Exam - General 1994 Constitutional general appearance Overall: in no acute distress 03/12/2015 None Full Exam - General 1994 Constitutional general appearance Overall: well nourished 03/12/2015 None Full Exam - General 1994 Eyes pupils and irises Overall: pupils equal, round, reactive to light and accomodation 03/12/2015 None Full Exam - General 1994 Ears/Nose/Throat oral cavity/pharynx/larynx Overall: oral mucosa clear 03/12/2015 None Full Exam - General 1994 Ears/Nose/Throat oral cavity/pharynx/larynx Overall: oropharyngeal mucosa clear 03/12/2015 None Full Exam - General 1994 Ears/Nose/Throat oral cavity/pharynx/larynx Overall: no masses 03/12/2015 None Full Exam - General 1994 Respiratory auscultation Overall: breath sounds clear bilaterally 03/12/2015 None Full Exam - General 1994 Respiratory respiratory effort/rhythm Overall: no retractions 03/12/2015 None Full Exam - General 1994 Respiratory respiratory effort/rhythm Overall: normal rate 03/12/2015 None Full Exam - General 1994 Cardiovascular extremities Overall: no clubbing 03/12/2015 None Full Exam - General 1994 Cardiovascular auscultation of heart Overall: regular rate 03/12/2015 None Full Exam - General 1994 Cardiovascular auscultation of heart Systolic murmur: holosystolic 03/12/2015 None Full Exam - General 1994 Cardiovascular auscultation of heart Systolic murmur grade: III/ 03/12/2015 None Full Exam - General 1994 Abdomen abdominal exam Overall: no tenderness 03/12/2015 None Full Exam - General 1994 Abdomen abdominal exam Overall: normal bowel sounds 03/12/2015 None Full Exam - General 1994 Lymphatic neck nodes Overall: anterior cervical chain benign 03/12/2015 None Full Exam - General 1994 Lymphatic neck nodes Overall: posterior cervical chain benign 03/12/2015 None Full Exam - General 1994 Musculoskeletal digits and nails DIPs: swelling 03/12/2015 None Full Exam - General 1994 Musculoskeletal digits and nails DIPs: nodule 03/12/2015 None Full Exam - General 1994 Musculoskeletal digits and nails PIPs: nodule 03/12/2015 None Full Exam - General 1994 Neurologic gait Overall: no ataxia, no unsteadiness 03/12/2015 None Full Exam - General 1994 Psychiatric orientation/consciousness Overall: oriented to person, place and time 03/12/2015 None Full Exam - General 1994 Psychiatric mood and affect Overall: normal mood and affect 03/12/2015 None Full Exam - General 1994 Psychiatric mood and affect Mood: happy 03/12/2015 None Full Exam - General 1994 Abdomen rectal exam Inspection: thrombosed hemorrhoid 03/12/2015 None Full Exam - General 1994 Constitutional general appearance Overall: well developed 01/08/2015 None Full Exam - General 1994 Constitutional general appearance Overall: in no acute distress 01/08/2015 None Full Exam - General 1994 Constitutional general appearance Overall: well nourished 01/08/2015 None Full Exam - General 1994 Eyes pupils and irises Overall: pupils equal, round, reactive to light and accomodation 01/08/2015 None Full Exam - General 1994 Ears/Nose/Throat oral cavity/pharynx/larynx Overall: oral mucosa clear 01/08/2015 None Full Exam - General 1994 Ears/Nose/Throat oral cavity/pharynx/larynx Overall: oropharyngeal mucosa clear 01/08/2015 None Full Exam - General 1994 Ears/Nose/Throat oral cavity/pharynx/larynx Overall: no masses 01/08/2015 None Full Exam - General 1994 Respiratory auscultation Overall: breath sounds clear bilaterally 01/08/2015 None Full Exam - General 1994 Respiratory respiratory effort/rhythm Overall: no retractions 01/08/2015 None Full Exam - General 1994 Respiratory respiratory effort/rhythm Overall: normal rate 01/08/2015 None Full Exam - General 1994 Cardiovascular extremities Overall: no clubbing 01/08/2015 None Full Exam - General 1994 Cardiovascular auscultation of heart Overall: regular rate 01/08/2015 None Full Exam - General 1994 Cardiovascular auscultation of heart Systolic murmur: holosystolic 01/08/2015 None Full Exam - General 1994 Cardiovascular auscultation of heart Systolic murmur grade: III/ 01/08/2015 None Full Exam - General 1994 Abdomen abdominal exam Overall: no tenderness 01/08/2015 None Full Exam - General 1994 Abdomen abdominal exam Overall: normal bowel sounds 01/08/2015 None Full Exam - General 1994 Lymphatic neck nodes Overall: anterior cervical chain benign 01/08/2015 None Full Exam - General 1994 Lymphatic neck nodes Overall: posterior cervical chain benign 01/08/2015 None Full Exam - General 1994 Neurologic gait Overall: no ataxia, no unsteadiness 01/08/2015 None Full Exam - General 1994 Psychiatric orientation/consciousness Overall: oriented to person, place and time 01/08/2015 None Full Exam - General 1994 Psychiatric mood and affect Overall: normal mood and affect 01/08/2015 None Full Exam - General 1994 Psychiatric mood and affect Mood: happy 01/08/2015 None Full Exam - General 1994 Musculoskeletal digits and nails DIPs: swelling 01/08/2015 None Full Exam - General 1994 Musculoskeletal digits and nails DIPs: nodule 01/08/2015 None Full Exam - General 1994 Musculoskeletal digits and nails PIPs: nodule 01/08/2015 None Full Exam - General 1994 Constitutional general appearance Overall: well developed 10/04/2014 None Full Exam - General 1994 Constitutional general appearance Overall: in no acute distress 10/04/2014 None Full Exam - General 1994 Constitutional general appearance Overall: well nourished 10/04/2014 None Full Exam - General 1994 Eyes pupils and irises Overall: pupils equal, round, reactive to light and accomodation 10/04/2014 None Full Exam - General 1994 Ears/Nose/Throat oral cavity/pharynx/larynx Overall: oral mucosa clear 10/04/2014 None Full Exam - General 1994 Ears/Nose/Throat oral cavity/pharynx/larynx Overall: oropharyngeal mucosa clear 10/04/2014 None Full Exam - General 1994 Ears/Nose/Throat oral cavity/pharynx/larynx Overall: no masses 10/04/2014 None Full Exam - General 1994 Respiratory auscultation Overall: breath sounds clear bilaterally 10/04/2014 None Full Exam - General 1994 Respiratory respiratory effort/rhythm Overall: no retractions 10/04/2014 None Full Exam - General 1994 Respiratory respiratory effort/rhythm Overall: normal rate 10/04/2014 None Full Exam - General 1994 Cardiovascular extremities Overall: no clubbing 10/04/2014 None Full Exam - General 1994 Cardiovascular auscultation of heart Overall: regular rate 10/04/2014 None Full Exam - General 1994 Cardiovascular auscultation of heart Systolic murmur: holosystolic 10/04/2014 None Full Exam - General 1994 Cardiovascular auscultation of heart Systolic murmur grade: III/ 10/04/2014 None Full Exam - General 1994 Abdomen abdominal exam Overall: no tenderness 10/04/2014 None Full Exam - General 1994 Abdomen abdominal exam Overall: normal bowel sounds 10/04/2014 None Full Exam - General 1994 Lymphatic neck nodes Overall: anterior cervical chain benign 10/04/2014 None Full Exam - General 1994 Lymphatic neck nodes Overall: posterior cervical chain benign 10/04/2014 None Full Exam - General 1994 Neurologic gait Overall: no ataxia, no unsteadiness 10/04/2014 None Full Exam - General 1994 Psychiatric orientation/consciousness Overall: oriented to person, place and time 10/04/2014 None Full Exam - General 1994 Psychiatric mood and affect Overall: normal mood and affect 10/04/2014 None Full Exam - General 1994 Psychiatric mood and affect Mood: happy 10/04/2014 None Full Exam - General 1994 Constitutional general appearance Overall: well developed 09/10/2014 None Full Exam - General 1994 Constitutional general appearance Overall: in no acute distress 09/10/2014 None Full Exam - General 1994 Constitutional general appearance Overall: well nourished 09/10/2014 None Full Exam - General 1994 Eyes pupils and irises Overall: pupils equal, round, reactive to light and accomodation 09/10/2014 None Full Exam - General 1994 Ears/Nose/Throat oral cavity/pharynx/larynx Overall: oral mucosa clear 09/10/2014 None Full Exam - General 1994 Ears/Nose/Throat oral cavity/pharynx/larynx Overall: oropharyngeal mucosa clear 09/10/2014 None Full Exam - General 1994 Ears/Nose/Throat oral cavity/pharynx/larynx Overall: no masses 09/10/2014 None Full Exam - General 1994 Respiratory auscultation Overall: breath sounds clear bilaterally 09/10/2014 None Full Exam - General 1994 Respiratory respiratory effort/rhythm Overall: no retractions 09/10/2014 None Full Exam - General 1994 Respiratory respiratory effort/rhythm Overall: normal rate 09/10/2014 None Full Exam - General 1994 Cardiovascular extremities Overall: no clubbing 09/10/2014 None Full Exam - General 1994 Cardiovascular auscultation of heart Overall: regular rate 09/10/2014 None Full Exam - General 1994 Cardiovascular auscultation of heart Systolic murmur: holosystolic 09/10/2014 None Full Exam - General 1994 Cardiovascular auscultation of heart Systolic murmur grade: III/ 09/10/2014 None Full Exam - General 1994 Abdomen abdominal exam Overall: no tenderness 09/10/2014 None Full Exam - General 1994 Abdomen abdominal exam Overall: normal bowel sounds 09/10/2014 None Full Exam - General 1994 Lymphatic neck nodes Overall: anterior cervical chain benign 09/10/2014 None Full Exam - General 1994 Lymphatic neck nodes Overall: posterior cervical chain benign 09/10/2014 None Full Exam - General 1994 Neurologic gait Overall: no ataxia, no unsteadiness 09/10/2014 None Full Exam - General 1994 Psychiatric orientation/consciousness Overall: oriented to person, place and time 09/10/2014 None Full Exam - General 1994 Psychiatric mood and affect Overall: normal mood and affect 09/10/2014 None Full Exam - General 1994 Psychiatric mood and affect Mood: happy 09/10/2014 None Full Exam - General 1994 Ears/Nose/Throat otoscopic exam Overall: tympanic membranes clear 09/10/2014 None Full Exam - General 1994 Ears/Nose/Throat otoscopic exam Overall: external auditory canals clear 09/10/2014 None Full Exam - General 1994 Constitutional general appearance Overall: well developed 08/06/2014 None Full Exam - General 1994 Constitutional general appearance Overall: in no acute distress 08/06/2014 None Full Exam - General 1994 Constitutional general appearance Overall: well nourished 08/06/2014 None Full Exam - General 1994 Eyes pupils and irises Overall: pupils equal, round, reactive to light and accomodation 08/06/2014 None Full Exam - General 1994 Ears/Nose/Throat oral cavity/pharynx/larynx Overall: oral mucosa clear 08/06/2014 None Full Exam - General 1994 Ears/Nose/Throat oral cavity/pharynx/larynx Overall: oropharyngeal mucosa clear 08/06/2014 None Full Exam - General 1994 Ears/Nose/Throat oral cavity/pharynx/larynx Overall: no masses 08/06/2014 None Full Exam - General 1994 Respiratory auscultation Overall: breath sounds clear bilaterally 08/06/2014 None Full Exam - General 1994 Respiratory respiratory effort/rhythm Overall: no retractions 08/06/2014 None Full Exam - General 1994 Respiratory respiratory effort/rhythm Overall: normal rate 08/06/2014 None Full Exam - General 1994 Cardiovascular extremities Overall: no clubbing 08/06/2014 None Full Exam - General 1994 Cardiovascular auscultation of heart Overall: regular rate 08/06/2014 None Full Exam - General 1994 Cardiovascular auscultation of heart Systolic murmur: holosystolic 08/06/2014 None Full Exam - General 1994 Cardiovascular auscultation of heart Systolic murmur grade: III/ 08/06/2014 None Full Exam - General 1994 Abdomen abdominal exam Overall: no tenderness 08/06/2014 None Full Exam - General 1994 Abdomen abdominal exam Overall: normal bowel sounds 08/06/2014 None Full Exam - General 1994 Lymphatic neck nodes Overall: anterior cervical chain benign 08/06/2014 None Full Exam - General 1994 Lymphatic neck nodes Overall: posterior cervical chain benign 08/06/2014 None Full Exam - General 1994 Neurologic gait Overall: no ataxia, no unsteadiness 08/06/2014 None Full Exam - General 1994 Psychiatric orientation/consciousness Overall: oriented to person, place and time 08/06/2014 None Full Exam - General 1994 Psychiatric mood and affect Overall: normal mood and affect 08/06/2014 None Full Exam - General 1994 Psychiatric mood and affect Mood: happy 08/06/2014 None Full Exam - General 1994 Constitutional general appearance Overall: well developed 07/12/2014 None Full Exam - General 1994 Constitutional general appearance Overall: in no acute distress 07/12/2014 None Full Exam - General 1994 Constitutional general appearance Overall: well nourished 07/12/2014 None Full Exam - General 1994 Eyes pupils and irises Overall: pupils equal, round, reactive to light and accomodation 07/12/2014 None Full Exam - General 1994 Ears/Nose/Throat oral cavity/pharynx/larynx Overall: oral mucosa clear 07/12/2014 None Full Exam - General 1994 Ears/Nose/Throat oral cavity/pharynx/larynx Overall: oropharyngeal mucosa clear 07/12/2014 None Full Exam - General 1994 Ears/Nose/Throat oral cavity/pharynx/larynx Overall: no masses 07/12/2014 None Full Exam - General 1994 Respiratory auscultation Overall: breath sounds clear bilaterally 07/12/2014 None Full Exam - General 1994 Respiratory respiratory effort/rhythm Overall: no retractions 07/12/2014 None Full Exam - General 1994 Respiratory respiratory effort/rhythm Overall: normal rate 07/12/2014 None Full Exam - General 1994 Cardiovascular extremities Overall: no clubbing 07/12/2014 None Full Exam - General 1994 Cardiovascular auscultation of heart Overall: regular rate 07/12/2014 None Full Exam - General 1994 Cardiovascular auscultation of heart Systolic murmur: holosystolic 07/12/2014 None Full Exam - General 1994 Abdomen abdominal exam Overall: no tenderness 07/12/2014 None Full Exam - General 1994 Abdomen abdominal exam Overall: normal bowel sounds 07/12/2014 None Full Exam - General 1994 Lymphatic neck nodes Overall: anterior cervical chain benign 07/12/2014 None Full Exam - General 1994 Lymphatic neck nodes Overall: posterior cervical chain benign 07/12/2014 None Full Exam - General 1994 Neurologic gait Overall: no ataxia, no unsteadiness 07/12/2014 None Full Exam - General 1994 Psychiatric orientation/consciousness Overall: oriented to person, place and time 07/12/2014 None Full Exam - General 1994 Psychiatric mood and affect Overall: normal mood and affect 07/12/2014 None Full Exam - General 1994 Psychiatric mood and affect Mood: happy 07/12/2014 None Full Exam - General 1994 Cardiovascular auscultation of heart Systolic murmur grade: III/ 07/12/2014 None Full Exam - General 1994 Constitutional general appearance Overall: well developed 05/16/2014 None Full Exam - General 1994 Constitutional general appearance Overall: in no acute distress 05/16/2014 None Full Exam - General 1994 Constitutional general appearance Overall: well nourished 05/16/2014 None Full Exam - General 1994 Eyes pupils and irises Overall: pupils equal, round, reactive to light and accomodation 05/16/2014 None Full Exam - General 1994 Ears/Nose/Throat oral cavity/pharynx/larynx Overall: oral mucosa clear 05/16/2014 None Full Exam - General 1994 Ears/Nose/Throat oral cavity/pharynx/larynx Overall: oropharyngeal mucosa clear 05/16/2014 None Full Exam - General 1994 Ears/Nose/Throat oral cavity/pharynx/larynx Overall: no masses 05/16/2014 None Full Exam - General 1994 Respiratory auscultation Overall: breath sounds clear bilaterally 05/16/2014 None Full Exam - General 1994 Respiratory respiratory effort/rhythm Overall: no retractions 05/16/2014 None Full Exam - General 1994 Respiratory respiratory effort/rhythm Overall: normal rate 05/16/2014 None Full Exam - General 1994 Cardiovascular extremities Overall: no clubbing 05/16/2014 None Full Exam - General 1994 Cardiovascular auscultation of heart Overall: regular rate 05/16/2014 None Full Exam - General 1994 Cardiovascular auscultation of heart Systolic murmur: holosystolic 05/16/2014 None Full Exam - General 1994 Cardiovascular auscultation of heart Systolic murmur grade: II/ 05/16/2014 None Full Exam - General 1994 Abdomen abdominal exam Overall: no tenderness 05/16/2014 None Full Exam - General 1994 Abdomen abdominal exam Overall: normal bowel sounds 05/16/2014 None Full Exam - General 1994 Lymphatic neck nodes Overall: anterior cervical chain benign 05/16/2014 None Full Exam - General 1994 Lymphatic neck nodes Overall: posterior cervical chain benign 05/16/2014 None Full Exam - General 1994 Musculoskeletal spine, ribs and pelvis Sacroiliac joints: tender right sacroiliac joint 05/16/2014 None Full Exam - General 1994 Musculoskeletal spine, ribs and pelvis Sacroiliac joints: tender left sacroiliac joint 05/16/2014 None Full Exam - General 1994 Neurologic gait Overall: no ataxia, no unsteadiness 05/16/2014 None Full Exam - General 1994 Psychiatric orientation/consciousness Overall: oriented to person, place and time 05/16/2014 None Full Exam - General 1994 Psychiatric mood and affect Overall: normal mood and affect 05/16/2014 None Full Exam - General 1994 Psychiatric mood and affect Mood: happy 05/16/2014 None Full Exam - General 1994 Constitutional general appearance Overall: well developed 04/05/2014 None Full Exam - General 1994 Constitutional general appearance Overall: in no acute distress 04/05/2014 None Full Exam - General 1994 Constitutional general appearance Overall: well nourished 04/05/2014 None Full Exam - General 1994 Eyes pupils and irises Overall: pupils equal, round, reactive to light and accomodation 04/05/2014 None Full Exam - General 1994 Ears/Nose/Throat oral cavity/pharynx/larynx Overall: oral mucosa clear 04/05/2014 None Full Exam - General 1994 Ears/Nose/Throat oral cavity/pharynx/larynx Overall: oropharyngeal mucosa clear 04/05/2014 None Full Exam - General 1994 Ears/Nose/Throat oral cavity/pharynx/larynx Overall: no masses 04/05/2014 None Full Exam - General 1994 Respiratory auscultation Overall: breath sounds clear bilaterally 04/05/2014 None Full Exam - General 1994 Respiratory respiratory effort/rhythm Overall: no retractions 04/05/2014 None Full Exam - General 1994 Respiratory respiratory effort/rhythm Overall: normal rate 04/05/2014 None Full Exam - General 1994 Cardiovascular extremities Overall: no clubbing 04/05/2014 None Full Exam - General 1994 Cardiovascular auscultation of heart Overall: regular rate 04/05/2014 None Full Exam - General 1994 Cardiovascular auscultation of heart Systolic murmur: holosystolic 04/05/2014 None Full Exam - General 1994 Cardiovascular auscultation of heart Systolic murmur grade: II/ 04/05/2014 None Full Exam - General 1994 Abdomen abdominal exam Overall: no tenderness 04/05/2014 None Full Exam - General 1994 Abdomen abdominal exam Overall: normal bowel sounds 04/05/2014 None Full Exam - General 1994 Lymphatic neck nodes Overall: anterior cervical chain benign 04/05/2014 None Full Exam - General 1994 Lymphatic neck nodes Overall: posterior cervical chain benign 04/05/2014 None Full Exam - General 1994 Musculoskeletal spine, ribs and pelvis Sacroiliac joints: tender right sacroiliac joint 04/05/2014 None Full Exam - General 1994 Musculoskeletal spine, ribs and pelvis Sacroiliac joints: tender left sacroiliac joint 04/05/2014 None Full Exam - General 1994 Neurologic gait Overall: no ataxia, no unsteadiness 04/05/2014 None Full Exam - General 1994 Psychiatric orientation/consciousness Overall: oriented to person, place and time 04/05/2014 None Full Exam - General 1994 Psychiatric mood and affect Overall: normal mood and affect 04/05/2014 None Full Exam - General 1994 Psychiatric mood and affect Mood: happy 04/05/2014 None Full Exam - General 1994 Constitutional general appearance Overall: well developed 03/05/2014 None Full Exam - General 1994 Constitutional general appearance Overall: in no acute distress 03/05/2014 None Full Exam - General 1994 Constitutional general appearance Overall: well nourished 03/05/2014 None Full Exam - General 1994 Eyes pupils and irises Overall: pupils equal, round, reactive to light and accomodation 03/05/2014 None Full Exam - General 1994 Ears/Nose/Throat oral cavity/pharynx/larynx Overall: oral mucosa clear 03/05/2014 None Full Exam - General 1994 Ears/Nose/Throat oral cavity/pharynx/larynx Overall: oropharyngeal mucosa clear 03/05/2014 None Full Exam - General 1994 Ears/Nose/Throat oral cavity/pharynx/larynx Overall: no masses 03/05/2014 None Full Exam - General 1994 Respiratory auscultation Overall: breath sounds clear bilaterally 03/05/2014 None Full Exam - General 1994 Respiratory respiratory effort/rhythm Overall: no retractions 03/05/2014 None Full Exam - General 1994 Respiratory respiratory effort/rhythm Overall: normal rate 03/05/2014 None Full Exam - General 1994 Cardiovascular extremities Overall: no clubbing 03/05/2014 None Full Exam - General 1994 Cardiovascular auscultation of heart Overall: regular rate 03/05/2014 None Full Exam - General 1994 Cardiovascular auscultation of heart Systolic murmur: holosystolic 03/05/2014 None Full Exam - General 1994 Cardiovascular auscultation of heart Systolic murmur grade: II/ 03/05/2014 None Full Exam - General 1994 Abdomen abdominal exam Overall: no tenderness 03/05/2014 None Full Exam - General 1994 Abdomen abdominal exam Overall: normal bowel sounds 03/05/2014 None Full Exam - General 1994 Lymphatic neck nodes Overall: anterior cervical chain benign 03/05/2014 None Full Exam - General 1994 Lymphatic neck nodes Overall: posterior cervical chain benign 03/05/2014 None Full Exam - General 1994 Musculoskeletal spine, ribs and pelvis Sacroiliac joints: tender right sacroiliac joint 03/05/2014 None Full Exam - General 1994 Musculoskeletal spine, ribs and pelvis Sacroiliac joints: tender left sacroiliac joint 03/05/2014 None Full Exam - General 1994 Neurologic gait Overall: no ataxia, no unsteadiness 03/05/2014 None Full Exam - General 1994 Psychiatric orientation/consciousness Overall: oriented to person, place and time 03/05/2014 None Full Exam - General 1994 Psychiatric mood and affect Overall: normal mood and affect 03/05/2014 None Full Exam - General 1994 Psychiatric mood and affect Mood: happy 03/05/2014 None Full Exam - Cardiology Eyes conjunctiva/ eyelids Left conjunctiva: clear 02/01/2014 None Full Exam - Cardiology Respiratory respiratory effort/rhythm Overall: no retractions 02/01/2014 None Full Exam - Cardiology Respiratory respiratory effort/rhythm Overall: normal rate 02/01/2014 None Full Exam - Cardiology Respiratory auscultation Overall: breath sounds clear bilaterally 02/01/2014 None Full Exam - Cardiology Cardiovascular auscultation of heart Overall: regular rate 02/01/2014 None Full Exam - Cardiology Cardiovascular auscultation of heart Murmur: previously known murmur unchanged 02/01/2014 None Full Exam - Cardiology Cardiovascular auscultation of heart Systolic murmur: holosystolic 02/01/2014 None Full Exam - Cardiology Cardiovascular auscultation of heart Systolic murmur grade: III/ 02/01/2014 None Full Exam - Cardiology Extremities digits and nails Deformities/Nodules: heberden's node 02/01/2014 None Full Exam - Cardiology Integument inspection/palpation Location: left hand 02/01/2014 None Full Exam - Cardiology Integument inspection/palpation Location: right hand 02/01/2014 dryness and cracking noted left 1st finger with vesicular type rash right inner 1st finger Full Exam - Cardiology Psychiatric orientation/consciousness Overall: oriented to person, place and time 02/01/2014 None Full Exam - Cardiology Psychiatric mood and affect Overall: normal mood and affect 02/01/2014 None Full Exam - Cardiology Constitutional general appearance Overall: well nourished 02/01/2014 None Full Exam - Cardiology Constitutional general appearance Overall: well developed 02/01/2014 None Full Exam - Cardiology Constitutional general appearance Overall: in no acute distress 02/01/2014 None Full Exam - Cardiology Constitutional general appearance Overall: well nourished 12/07/2013 None Full Exam - Cardiology Constitutional general appearance Overall: well developed 12/07/2013 None Full Exam - Cardiology Constitutional general appearance Overall: in no acute distress 12/07/2013 None Full Exam - Cardiology Psychiatric orientation/consciousness Overall: oriented to person, place and time 12/07/2013 None Full Exam - Cardiology Psychiatric mood and affect Overall: normal mood and affect 12/07/2013 None Full Exam - Cardiology Integument inspection/palpation Location: left hand 12/07/2013 None Full Exam - Cardiology Integument inspection/palpation Location: right hand 12/07/2013 dryness and cracking noted left 1st finger and 2nd right finger Full Exam - Cardiology Extremities digits and nails Deformities/Nodules: heberden's node 12/07/2013 None Full Exam - Cardiology Cardiovascular auscultation of heart Overall: regular rate 12/07/2013 None Full Exam - Cardiology Cardiovascular auscultation of heart Murmur: previously known murmur unchanged 12/07/2013 None Full Exam - Cardiology Cardiovascular auscultation of heart Systolic murmur: holosystolic 12/07/2013 None Full Exam - Cardiology Respiratory respiratory effort/rhythm Overall: no retractions 12/07/2013 None Full Exam - Cardiology Respiratory respiratory effort/rhythm Overall: normal rate 12/07/2013 None Full Exam - Cardiology Respiratory auscultation Overall: breath sounds clear bilaterally 12/07/2013 None Full Exam - Cardiology Eyes conjunctiva/ eyelids Left conjunctiva: clear 12/07/2013 None Full Exam - Cardiology Eyes conjunctiva/ eyelids Right conjunctiva: discharge 12/07/2013 None Full Exam - Cardiology Cardiovascular auscultation of heart Systolic murmur grade: II/ 12/07/2013 None Full Exam - Cardiology Cardiovascular auscultation of heart Systolic murmur grade: III/ 12/07/2013 None Full Exam - Cardiology Eyes conjunctiva/ eyelids Left eyelid: hordeolum 12/07/2013 None Full Exam - General 1994 Constitutional general appearance Overall: well developed 09/25/2013 None Full Exam - General 1994 Constitutional general appearance Overall: in no acute distress 09/25/2013 None Full Exam - General 1994 Constitutional general appearance Overall: well nourished 09/25/2013 None Full Exam - General 1994 Eyes pupils and irises Overall: pupils equal, round, reactive to light and accomodation 09/25/2013 None Full Exam - General 1995 Ears/Nose/Throat oral cavity/pharynx/larynx Overall: oral mucosa clear 09/25/2013 None Full Exam - General 1995 Ears/Nose/Throat oral cavity/pharynx/larynx Overall: oropharyngeal mucosa clear 09/25/2013 None Full Exam - General 1995 Ears/Nose/Throat oral cavity/pharynx/larynx Overall: no masses 09/25/2013 None Full Exam - General 1994 Respiratory auscultation Overall: breath sounds clear bilaterally 09/25/2013 None Full Exam - General 1994 Respiratory respiratory effort/rhythm Overall: no retractions 09/25/2013 None Full Exam - General 1994 Respiratory respiratory effort/rhythm Overall: normal rate 09/25/2013 None Full Exam - General 1994 Cardiovascular extremities Overall: no clubbing 09/25/2013 None Full Exam - General 1994 Cardiovascular auscultation of heart Overall: regular rate 09/25/2013 None Full Exam - General 1994 Cardiovascular auscultation of heart Systolic murmur: holosystolic 09/25/2013 None Full Exam - General 1994 Cardiovascular auscultation of heart Systolic murmur grade: II/ 09/25/2013 None Full Exam - General 1994 Abdomen abdominal exam Overall: no tenderness 09/25/2013 None Full Exam - General 1994 Abdomen abdominal exam Overall: normal bowel sounds 09/25/2013 None Full Exam - General 1994 Lymphatic neck nodes Overall: anterior cervical chain benign 09/25/2013 None Full Exam - General 1994 Lymphatic neck nodes Overall: posterior cervical chain benign 09/25/2013 None Full Exam - General 1994 Musculoskeletal spine, ribs and pelvis Sacroiliac joints: tender right sacroiliac joint 09/25/2013 None Full Exam - General 1994 Musculoskeletal spine, ribs and pelvis Sacroiliac joints: tender left sacroiliac joint 09/25/2013 None Full Exam - General 1994 Neurologic gait Overall: no ataxia, no unsteadiness 09/25/2013 None Full Exam - General 1994 Psychiatric orientation/consciousness Overall: oriented to person, place and time 09/25/2013 None Full Exam - General 1994 Psychiatric mood and affect Overall: normal mood and affect 09/25/2013 None Full Exam - General 1994 Psychiatric mood and affect Mood: happy 09/25/2013 None Full Exam - General 1994 Constitutional general appearance Overall: well developed 09/04/2013 None Full Exam - General 1994 Constitutional general appearance Overall: in no acute distress 09/04/2013 None Full Exam - General 1994 Constitutional general appearance Overall: well nourished 09/04/2013 None Full Exam - General 1994 Eyes pupils and irises Overall: pupils equal, round, reactive to light and accomodation 09/04/2013 None Full Exam - General 1994 Ears/Nose/Throat oral cavity/pharynx/larynx Overall: oral mucosa clear 09/04/2013 None Full Exam - General 1995 Ears/Nose/Throat oral cavity/pharynx/larynx Overall: oropharyngeal mucosa clear 09/04/2013 None Full Exam - General 1994 Ears/Nose/Throat oral cavity/pharynx/larynx Overall: no masses 09/04/2013 None Full Exam - General 1994 Respiratory auscultation Overall: breath sounds clear bilaterally 09/04/2013 None Full Exam - General 1994 Respiratory respiratory effort/rhythm Overall: no retractions 09/04/2013 None Full Exam - General 1994 Respiratory respiratory effort/rhythm Overall: normal rate 09/04/2013 None Full Exam - General 1994 Cardiovascular extremities Overall: no clubbing 09/04/2013 None Full Exam - General 1994 Cardiovascular auscultation of heart Overall: regular rate 09/04/2013 None Full Exam - General 1994 Cardiovascular auscultation of heart Systolic murmur: holosystolic 09/04/2013 None Full Exam - General 1994 Cardiovascular auscultation of heart Systolic murmur grade: II/ 09/04/2013 None Full Exam - General 1994 Abdomen abdominal exam Overall: no tenderness 09/04/2013 None Full Exam - General 1994 Abdomen abdominal exam Overall: normal bowel sounds 09/04/2013 None Full Exam - General 1994 Lymphatic neck nodes Overall: anterior cervical chain benign 09/04/2013 None Full Exam - General 1994 Lymphatic neck nodes Overall: posterior cervical chain benign 09/04/2013 None Full Exam - General 1994 Musculoskeletal spine, ribs and pelvis Sacroiliac joints: tender right sacroiliac joint 09/04/2013 None Full Exam - General 1994 Musculoskeletal spine, ribs and pelvis Sacroiliac joints: tender left sacroiliac joint 09/04/2013 None Full Exam - General 1994 Neurologic gait Overall: no ataxia, no unsteadiness 09/04/2013 None Full Exam - General 1994 Psychiatric orientation/consciousness Overall: oriented to person, place and time 09/04/2013 None Full Exam - General 1994 Psychiatric mood and affect Overall: normal mood and affect 09/04/2013 None Full Exam - General 1995 Psychiatric mood and affect Mood: happy 09/04/2013 None Full Exam - General 1995 Constitutional general appearance Overall: well nourished 05/18/2013 None Full Exam - General 1995 Constitutional general appearance Overall: well developed 05/18/2013 None Full Exam - General 1995 Constitutional general appearance Overall: in no acute distress 05/18/2013 None Full Exam - General 1994 Eyes pupils and irises Overall: pupils equal, round, reactive to light and accomodation 05/18/2013 None Full Exam - General 1994 Eyes conjunctiva /eyelids Overall: conjunctiva clear 05/18/2013 None Full Exam - General 1994 Eyes conjunctiva /eyelids Overall: eyelids normal 05/18/2013 None Full Exam - General 1994 Eyes conjunctiva /eyelids Overall: cornea clear 05/18/2013 None Full Exam - General 1995 Ears/Nose/Throat oral cavity/pharynx/larynx Overall: oropharyngeal mucosa clear 05/18/2013 None Full Exam - General 1995 Ears/Nose/Throat oral cavity/pharynx/larynx Overall: no masses 05/18/2013 None Full Exam - General 1995 Ears/Nose/Throat oral cavity/pharynx/larynx Overall: oral mucosa clear 05/18/2013 None Full Exam - General 1995 Ears/Nose/Throat lips/teeth/gingiva Overall: benign gingiva 05/18/2013 None Full Exam - General 1995 Ears/Nose/Throat lips/teeth/gingiva Overall: no masses 05/18/2013 None Full Exam - General 1995 Ears/Nose/Throat lips/teeth/gingiva Overall: normal dentition 05/18/2013 None Full Exam - General 1995 Ears/Nose/Throat lips/teeth/gingiva Overall: benign lips 05/18/2013 None Full Exam - General 1995 Ears/Nose/Throat otoscopic exam Overall: tympanic membranes clear 05/18/2013 None Full Exam - General 1995 Ears/Nose/Throat otoscopic exam Overall: external auditory canals clear 05/18/2013 None Full Exam - General 1994 Respiratory auscultation Overall: breath sounds clear bilaterally 05/18/2013 None Full Exam - General 1994 Respiratory respiratory effort/rhythm Overall: normal rate 05/18/2013 None Full Exam - General 1994 Respiratory respiratory effort/rhythm Overall: no retractions 05/18/2013 None Full Exam - General 1994 Cardiovascular auscultation of heart Overall: regular rate 05/18/2013 None Full Exam - General 1994 Cardiovascular auscultation of heart Overall: normal heart sounds 05/18/2013 None Full Exam - General 1994 Cardiovascular auscultation of heart Overall: no murmurs 05/18/2013 None Full Exam - General 1994 Abdomen abdominal exam Overall: no tenderness 05/18/2013 None Full Exam - General 1994 Abdomen abdominal exam Overall: normal bowel sounds 05/18/2013 None Full Exam - General 1994 Musculoskeletal spine, ribs and pelvis Sacroiliac joints: tender right sacroiliac joint 05/18/2013 None Full Exam - General 1994 Musculoskeletal spine, ribs and pelvis Sacroiliac joints: tender left sacroiliac joint 05/18/2013 None Full Exam - General 1994 Integument inspection of skin Overall: no rash, lesions 05/18/2013 None Full Exam - General 1994 Psychiatric orientation/consciousness Overall: oriented to person, place and time 05/18/2013 None Full Exam - General 1994 Constitutional general appearance Overall: well developed 04/18/2013 None Full Exam - General 1994 Constitutional general appearance Overall: in no acute distress 04/18/2013 None Full Exam - General 1994 Constitutional general appearance Overall: well nourished 04/18/2013 None Full Exam - General 1994 Eyes pupils and irises Overall: pupils equal, round, reactive to light and accomodation 04/18/2013 None Full Exam - General 1994 Ears/Nose/Throat oral cavity/pharynx/larynx Overall: oral mucosa clear 04/18/2013 None Full Exam - General 1994 Ears/Nose/Throat oral cavity/pharynx/larynx Overall: oropharyngeal mucosa clear 04/18/2013 None Full Exam - General 1994 Ears/Nose/Throat oral cavity/pharynx/larynx Overall: no masses 04/18/2013 None Full Exam - General 1994 Respiratory auscultation Overall: breath sounds clear bilaterally 04/18/2013 None Full Exam - General 1994 Respiratory respiratory effort/rhythm Overall: no retractions 04/18/2013 None Full Exam - General 1994 Respiratory respiratory effort/rhythm Overall: normal rate 04/18/2013 None Full Exam - General 1994 Cardiovascular extremities Overall: no clubbing 04/18/2013 None Full Exam - General 1994 Cardiovascular auscultation of heart Overall: regular rate 04/18/2013 None Full Exam - General 1994 Cardiovascular auscultation of heart Systolic murmur: holosystolic 04/18/2013 None Full Exam - General 1994 Cardiovascular auscultation of heart Systolic murmur grade: II/ 04/18/2013 None Full Exam - General 1994 Abdomen abdominal exam Overall: no tenderness 04/18/2013 None Full Exam - General 1994 Abdomen abdominal exam Overall: normal bowel sounds 04/18/2013 None Full Exam - General 1995 Lymphatic neck nodes Overall: anterior cervical chain benign 04/18/2013 None Full Exam - General 1995 Lymphatic neck nodes Overall: posterior cervical chain benign 04/18/2013 None Full Exam - General 1994 Neurologic gait Overall: no ataxia, no unsteadiness 04/18/2013 None Full Exam - General 1994 Psychiatric orientation/consciousness Overall: oriented to person, place and time 04/18/2013 None Full Exam - General 1994 Psychiatric mood and affect Overall: normal mood and affect 04/18/2013 None Full Exam - General 1994 Psychiatric mood and affect Mood: happy 04/18/2013 None Full Exam - General 1994 Musculoskeletal spine, ribs and pelvis Sacroiliac joints: tender right sacroiliac joint 04/18/2013 None Full Exam - General 1994 Musculoskeletal spine, ribs and pelvis Sacroiliac joints: tender left sacroiliac joint 04/18/2013 None Full Exam - General 1994 Constitutional general appearance Overall: well developed 03/16/2013 None Full Exam - General 1994 Constitutional general appearance Overall: in no acute distress 03/16/2013 None Full Exam - General 1994 Constitutional general appearance Overall: well nourished 03/16/2013 None Full Exam - General 1994 Eyes pupils and irises Overall: pupils equal, round, reactive to light and accomodation 03/16/2013 None Full Exam - General 1994 Ears/Nose/Throat oral cavity/pharynx/larynx Overall: oral mucosa clear 03/16/2013 None Full Exam - General 1994 Ears/Nose/Throat oral cavity/pharynx/larynx Overall: oropharyngeal mucosa clear 03/16/2013 None Full Exam - General 1994 Ears/Nose/Throat oral cavity/pharynx/larynx Overall: no masses 03/16/2013 None Full Exam - General 1994 Respiratory auscultation Overall: breath sounds clear bilaterally 03/16/2013 None Full Exam - General 1995 Respiratory respiratory effort/rhythm Overall: no retractions 03/16/2013 None Full Exam - General 1995 Respiratory respiratory effort/rhythm Overall: normal rate 03/16/2013 None Full Exam - General 1994 Cardiovascular extremities Overall: no clubbing 03/16/2013 None Full Exam - General 1994 Cardiovascular auscultation of heart Overall: regular rate 03/16/2013 None Full Exam - General 1994 Cardiovascular auscultation of heart Systolic murmur: holosystolic 03/16/2013 None Full Exam - General 1994 Cardiovascular auscultation of heart Systolic murmur grade: II/ 03/16/2013 None Full Exam - General 1994 Abdomen abdominal exam Overall: no tenderness 03/16/2013 None Full Exam - General 1994 Abdomen abdominal exam Overall: normal bowel sounds 03/16/2013 None Full Exam - General 1994 Lymphatic neck nodes Overall: anterior cervical chain benign 03/16/2013 None Full Exam - General 1994 Lymphatic neck nodes Overall: posterior cervical chain benign 03/16/2013 None Full Exam - General 1994 Neurologic gait Overall: no ataxia, no unsteadiness 03/16/2013 None Full Exam - General 1994 Psychiatric orientation/consciousness Overall: oriented to person, place and time 03/16/2013 None Full Exam - General 1994 Psychiatric mood and affect Overall: normal mood and affect 03/16/2013 None Full Exam - General 1994 Psychiatric mood and affect Mood: happy 03/16/2013 None Full Exam - General 1994 Constitutional general appearance Overall: well developed 01/26/2013 None Full Exam - General 1994 Constitutional general appearance Overall: in no acute distress 01/26/2013 None Full Exam - General 1994 Constitutional general appearance Overall: well nourished 01/26/2013 None Full Exam - General 1994 Eyes pupils and irises Overall: pupils equal, round, reactive to light and accomodation 01/26/2013 None Full Exam - General 1994 Ears/Nose/Throat otoscopic exam Overall: external auditory canals clear 01/26/2013 None Full Exam - General 1994 Ears/Nose/Throat otoscopic exam Overall: tympanic membranes clear 01/26/2013 None Full Exam - General 1994 Ears/Nose/Throat oral cavity/pharynx/larynx Overall: oral mucosa clear 01/26/2013 None Full Exam - General 1995 Ears/Nose/Throat oral cavity/pharynx/larynx Overall: oropharyngeal mucosa clear 01/26/2013 None Full Exam - General 1995 Ears/Nose/Throat oral cavity/pharynx/larynx Overall: no masses 01/26/2013 None Full Exam - General 1995 Respiratory auscultation Overall: breath sounds clear bilaterally 01/26/2013 None Full Exam - General 1995 Respiratory respiratory effort/rhythm Overall: no retractions 01/26/2013 None Full Exam - General 1995 Respiratory respiratory effort/rhythm Overall: normal rate 01/26/2013 None Full Exam - General 1995 Cardiovascular extremities Overall: no clubbing 01/26/2013 None Full Exam - General 1995 Cardiovascular auscultation of heart Overall: regular rate 01/26/2013 None Full Exam - General 1995 Cardiovascular auscultation of heart Systolic murmur: holosystolic 01/26/2013 None Full Exam - General 1995 Cardiovascular auscultation of heart Systolic murmur grade: II/ 01/26/2013 None Full Exam - General 1995 Abdomen abdominal exam Overall: no tenderness 01/26/2013 None Full Exam - General 1994 Abdomen abdominal exam Overall: normal bowel sounds 01/26/2013 None Full Exam - General 1994 Lymphatic neck nodes Overall: anterior cervical chain benign 01/26/2013 None Full Exam - General 1995 Lymphatic neck nodes Overall: posterior cervical chain benign 01/26/2013 None Full Exam - General 1994 Psychiatric orientation/consciousness Overall: oriented to person, place and time 01/26/2013 None Full Exam - General 1994 Psychiatric mood and affect Overall: normal mood and affect 01/26/2013 None Full Exam - General 1994 Psychiatric mood and affect Mood: happy 01/26/2013 None Full Exam - General 1994 Integument inspection of skin Dermatitis: pustule 01/26/2013 over scalp, neck, upper back, and on anterior neck and chest - few scattered pustules - culture obtained Full Exam - General 1994 Constitutional general appearance Overall: well developed 12/27/2012 None Full Exam - General 1994 Constitutional general appearance Overall: in no acute distress 12/27/2012 None Full Exam - General 1994 Constitutional general appearance Overall: well nourished 12/27/2012 None Full Exam - General 1994 Respiratory auscultation Overall: breath sounds clear bilaterally 12/27/2012 None Full Exam - General 1994 Respiratory respiratory effort/rhythm Overall: no retractions 12/27/2012 None Full Exam - General 1994 Respiratory respiratory effort/rhythm Overall: normal rate 12/27/2012 None Full Exam - General 1995 Cardiovascular auscultation of heart Overall: regular rate 12/27/2012 None Full Exam - General 1995 Cardiovascular auscultation of heart Systolic murmur: holosystolic 12/27/2012 None Full Exam - General 1995 Cardiovascular auscultation of heart Systolic murmur grade: II/ 12/27/2012 None Full Exam - General 1995 Psychiatric orientation/consciousness Overall: oriented to person, place and time 12/27/2012 None Full Exam - General 1995 Musculoskeletal digits and nails DIPs: second 12/27/2012 None Full Exam - General 1995 Musculoskeletal digits and nails DIPs: fourth 12/27/2012 None Full Exam - General 1995 Musculoskeletal digits and nails DIPs: tender 12/27/2012 None Full Exam - General 1995 Musculoskeletal digits and nails DIPs: swelling 12/27/2012 None Full Exam - General 1995 Musculoskeletal digits and nails Deformities/Nodules: ulnar drift 12/27/2012 None Full Exam - General 1995 Musculoskeletal digits and nails Deformities/Nodules: heberden's node 12/27/2012 None Full Exam - General 1994 Constitutional general appearance Overall: well developed 10/11/2012 None Full Exam - General 1994 Constitutional general appearance Overall: in no acute distress 10/11/2012 None Full Exam - General 1994 Constitutional general appearance Overall: well nourished 10/11/2012 None Full Exam - General 1994 Lymphatic neck nodes Overall: posterior cervical chain benign 10/11/2012 None Full Exam - General 1994 Neurologic gait Overall: no ataxia, no unsteadiness 10/11/2012 None Full Exam - General 1994 Psychiatric orientation/consciousness Overall: oriented to person, place and time 10/11/2012 None Full Exam - General 1994 Psychiatric mood and affect Overall: normal mood and affect 10/11/2012 None Full Exam - General 1994 Psychiatric mood and affect Mood: happy 10/11/2012 None Full Exam - General 1994 Eyes pupils and irises Overall: pupils equal, round, reactive to light and accomodation 10/11/2012 None Full Exam - General 1995 Ears/Nose/Throat oral cavity/pharynx/larynx Overall: oral mucosa clear 10/11/2012 None Full Exam - General 1995 Ears/Nose/Throat oral cavity/pharynx/larynx Overall: oropharyngeal mucosa clear 10/11/2012 None Full Exam - General 1995 Ears/Nose/Throat oral cavity/pharynx/larynx Overall: no masses 10/11/2012 None Full Exam - General 1995 Respiratory auscultation Overall: breath sounds clear bilaterally 10/11/2012 None Full Exam - General 1995 Respiratory respiratory effort/rhythm Overall: no retractions 10/11/2012 None Full Exam - General 1995 Respiratory respiratory effort/rhythm Overall: normal rate 10/11/2012 None Full Exam - General 1995 Cardiovascular extremities Overall: no clubbing 10/11/2012 None Full Exam - General 1995 Cardiovascular auscultation of heart Overall: regular rate 10/11/2012 None Full Exam - General 1995 Cardiovascular auscultation of heart Systolic murmur: holosystolic 10/11/2012 None Full Exam - General 1995 Cardiovascular auscultation of heart Systolic murmur grade: II/ 10/11/2012 None Full Exam - General 1995 Abdomen abdominal exam Overall: no tenderness 10/11/2012 None Full Exam - General 1995 Abdomen abdominal exam Overall: normal bowel sounds 10/11/2012 None Full Exam - General 1995 Lymphatic neck nodes Overall: anterior cervical chain benign 10/11/2012 None Full Exam - General 1994 Constitutional general appearance Overall: well developed 09/21/2012 None Full Exam - General 1994 Cardiovascular auscultation of heart Overall: regular rate 09/21/2012 None Full Exam - General 1994 Cardiovascular auscultation of heart Systolic murmur: holosystolic 09/21/2012 None Full Exam - General 1995 Cardiovascular auscultation of heart Systolic murmur grade: II/ 09/21/2012 None Full Exam - General 1994 Lymphatic neck nodes Overall: anterior cervical chain benign 09/21/2012 None Full Exam - General 1994 Lymphatic neck nodes Overall: posterior cervical chain benign 09/21/2012 None Full Exam - General 1994 Integument inspection of skin Dermatitis: pustule 09/21/2012 None Full Exam - General 1994 Integument inspection of skin Dermatitis: erythema 09/21/2012 None Full Exam - General 1994 Integument inspection of skin Location: left foot 09/21/2012 on left great toe Full Exam - General 1994 Neurologic gait Overall: no ataxia, no unsteadiness 09/21/2012 None Full Exam - General 1994 Psychiatric orientation/consciousness Overall: oriented to person, place and time 09/21/2012 None Full Exam - General 1994 Psychiatric mood and affect Overall: normal mood and affect 09/21/2012 None Full Exam - General 1994 Psychiatric mood and affect Mood: happy 09/21/2012 None Full Exam - General 1994 Constitutional general appearance Overall: in no acute distress 09/21/2012 None Full Exam - General 1994 Constitutional general appearance Overall: well nourished 09/21/2012 None Full Exam - General 1994 Eyes pupils and irises Overall: pupils equal, round, reactive to light and accomodation 09/21/2012 None Full Exam - General 1994 Ears/Nose/Throat otoscopic exam Overall: external auditory canals clear 09/21/2012 None Full Exam - General 1994 Ears/Nose/Throat otoscopic exam Overall: tympanic membranes clear 09/21/2012 None Full Exam - General 1994 Ears/Nose/Throat oral cavity/pharynx/larynx Overall: oral mucosa clear 09/21/2012 None Full Exam - General 1994 Ears/Nose/Throat oral cavity/pharynx/larynx Overall: oropharyngeal mucosa clear 09/21/2012 None Full Exam - General 1994 Ears/Nose/Throat oral cavity/pharynx/larynx Overall: no masses 09/21/2012 None Full Exam - General 1994 Respiratory auscultation Overall: breath sounds clear bilaterally 09/21/2012 None Full Exam - General 1994 Respiratory respiratory effort/rhythm Overall: no retractions 09/21/2012 None Full Exam - General 1994 Respiratory respiratory effort/rhythm Overall: normal rate 09/21/2012 None Full Exam - General 1994 Cardiovascular extremities Overall: no clubbing 09/21/2012 None Full Exam - ENT Constitutional general appearance Overall: well nourished 08/02/2012 None Full Exam - ENT Constitutional general appearance Overall: well developed 08/02/2012 None Full Exam - ENT Constitutional general appearance Overall: in no acute distress 08/02/2012 None Full Exam - ENT Ears/Nose/Throat otoscopic exam Overall: external auditory canals normal 08/02/2012 None Full Exam - ENT Ears/Nose/Throat otoscopic exam Overall: tympanic membranes normal 08/02/2012 None Full Exam - ENT Ears/Nose/Throat oropharynx Overall: oral mucosa clear 08/02/2012 None Full Exam - ENT Ears/Nose/Throat oropharynx Posterior Pharynx: a normal exam 08/02/2012 None Full Exam - ENT Face and Head palpation Left maxillary sinus: tender 08/02/2012 None Full Exam - ENT Face and Head palpation Right maxillary sinus: tender 08/02/2012 None Full Exam - ENT Face and Head palpation Left frontal sinus: tender 08/02/2012 None Full Exam - ENT Face and Head palpation Right frontal sinus: tender 08/02/2012 None Full Exam - ENT Respiratory inspection Overall: no retractions 08/02/2012 None Full Exam - ENT Respiratory inspection Overall: normal rate 06/2012 None Full Exam - ENT Respiratory auscultation Overall: breath sounds clear bilaterally 08/02/2012 None Full Exam - ENT Cardiovascular auscultation of heart Rate: normal rate 08/02/2012 None Full Exam - ENT Cardiovascular auscultation of heart Rhythm: regular rhythm 08/02/2012 None Full Exam - ENT Cardiovascular auscultation of heart Systolic murmur: holosystolic 08/02/2012 None Full Exam - ENT Cardiovascular auscultation of heart Systolic murmur grade: II/ 08/02/2012 None Full Exam - ENT Lymphatic palpation of lymph nodes Overall: anterior cervical chain benign 08/02/2012 None Full Exam - ENT Lymphatic palpation of lymph nodes Overall: posterior cervical chain benign 08/02/2012 None Full Exam - ENT Neurologic orientation Overall: oriented to person, place and time 08/02/2012 None Full Exam - General 1994 Constitutional general appearance Overall: well developed 06/27/2012 None Full Exam - General 1994 Constitutional general appearance Overall: in no acute distress 06/27/2012 None Full Exam - General 1994 Constitutional general appearance Overall: well nourished 06/27/2012 None Full Exam - General 1994 Eyes pupils and irises Overall: pupils equal, round, reactive to light and accomodation 06/27/2012 None Full Exam - General 1994 Ears/Nose/Throat oral cavity/pharynx/larynx Overall: oral mucosa clear 06/27/2012 None Full Exam - General 1994 Ears/Nose/Throat oral cavity/pharynx/larynx Overall: oropharyngeal mucosa clear 06/27/2012 None Full Exam - General 1994 Ears/Nose/Throat oral cavity/pharynx/larynx Overall: no masses 06/27/2012 None Full Exam - General 1994 Respiratory auscultation Overall: breath sounds clear bilaterally 06/27/2012 None Full Exam - General 1994 Respiratory respiratory effort/rhythm Overall: no retractions 06/27/2012 None Full Exam - General 1994 Respiratory respiratory effort/rhythm Overall: normal rate 06/27/2012 None Full Exam - General 1994 Cardiovascular extremities Overall: no clubbing 06/27/2012 None Full Exam - General 1994 Cardiovascular extremities Edema present: severity 1+ - 4 +: _ 06/27/2012 None Full Exam - General 1994 Cardiovascular extremities Edema present: bilateral 06/27/2012 None Full Exam - General 1994 Cardiovascular auscultation of heart Overall: regular rate 06/27/2012 None Full Exam - General 1994 Cardiovascular auscultation of heart Systolic murmur: holosystolic 06/27/2012 None Full Exam - General 1994 Cardiovascular auscultation of heart Systolic murmur grade: II/ 06/27/2012 None Full Exam - General 1994 Abdomen abdominal exam Overall: no tenderness 06/27/2012 None Full Exam - General 1994 Abdomen abdominal exam Overall: normal bowel sounds 06/27/2012 None Full Exam - General 1994 Musculoskeletal spine, ribs and pelvis Sacroiliac joints: tender right sacroiliac joint 06/27/2012 None Full Exam - General 1994 Neurologic gait Overall: no ataxia, no unsteadiness 06/27/2012 None Full Exam - General 1994 Psychiatric orientation/consciousness Overall: oriented to person, place and time 06/27/2012 None Full Exam - General 1994 Psychiatric mood and affect Overall: normal mood and affect 06/27/2012 None Full Exam - General 1994 Psychiatric mood and affect Mood: happy 06/27/2012 None Full Exam - General 1994 Constitutional general appearance Overall: well developed 06/06/2012 None Full Exam - General 1994 Constitutional general appearance Overall: in no acute distress 06/06/2012 None Full Exam - General 1994 Constitutional general appearance Overall: well nourished 06/06/2012 None Full Exam - General 1994 Eyes pupils and irises Overall: pupils equal, round, reactive to light and accomodation 06/06/2012 None Full Exam - General 1994 Ears/Nose/Throat oral cavity/pharynx/larynx Overall: oral mucosa clear 06/06/2012 None Full Exam - General 1994 Ears/Nose/Throat oral cavity/pharynx/larynx Overall: oropharyngeal mucosa clear 06/06/2012 None Full Exam - General 1994 Ears/Nose/Throat oral cavity/pharynx/larynx Overall: no masses 06/06/2012 None Full Exam - General 1994 Respiratory auscultation Overall: breath sounds clear bilaterally 06/06/2012 None Full Exam - General 1994 Respiratory respiratory effort/rhythm Overall: no retractions 06/06/2012 None Full Exam - General 1994 Respiratory respiratory effort/rhythm Overall: normal rate 06/06/2012 None Full Exam - General 1994 Cardiovascular extremities Overall: no clubbing 06/06/2012 None Full Exam - General 1994 Cardiovascular extremities Edema present: severity 1+ - 4 +: _ 06/06/2012 None Full Exam - General 1994 Cardiovascular extremities Edema present: bilateral 06/06/2012 None Full Exam - General 1994 Cardiovascular auscultation of heart Overall: regular rate 06/06/2012 None Full Exam - General 1994 Cardiovascular auscultation of heart Systolic murmur: holosystolic 06/06/2012 None Full Exam - General 1994 Cardiovascular auscultation of heart Systolic murmur grade: II/ 06/06/2012 None Full Exam - General 1994 Abdomen abdominal exam Overall: no tenderness 06/06/2012 None Full Exam - General 1994 Abdomen abdominal exam Overall: normal bowel sounds 06/06/2012 None Full Exam - General 1994 Lymphatic neck nodes Overall: anterior cervical chain benign 06/06/2012 None Full Exam - General 1994 Lymphatic neck nodes Overall: posterior cervical chain benign 06/06/2012 None Full Exam - General 1994 Neurologic gait Overall: no ataxia, no unsteadiness 06/06/2012 None Full Exam - General 1994 Psychiatric orientation/consciousness Overall: oriented to person, place and time 06/06/2012 None Full Exam - General 1994 Psychiatric mood and affect Overall: normal mood and affect 06/06/2012 None Full Exam - General 1994 Psychiatric mood and affect Mood: happy 06/06/2012 None Full Exam - General 1994 Musculoskeletal upper extremity Overall: normal shoulder 06/06/2012 None Full Exam - General 1994 Musculoskeletal upper extremity Palpation - shoulder: tenderness @ bicipital groove 06/06/2012 None Full Exam - General 1994 Musculoskeletal spine, ribs and pelvis Sacroiliac joints: tender right sacroiliac joint 06/06/2012 None Full Exam - General 1994 Constitutional general appearance Overall: well developed 05/16/2012 None Full Exam - General 1994 Constitutional general appearance Overall: in no acute distress 05/16/2012 None Full Exam - General 1994 Constitutional general appearance Overall: well nourished 05/16/2012 None Full Exam - General 1994 Eyes pupils and irises Overall: pupils equal, round, reactive to light and accomodation 05/16/2012 None Full Exam - General 1994 Ears/Nose/Throat otoscopic exam Overall: external auditory canals clear 05/16/2012 None Full Exam - General 1995 Ears/Nose/Throat otoscopic exam Overall: tympanic membranes clear 05/16/2012 None Full Exam - General 1995 Ears/Nose/Throat oral cavity/pharynx/larynx Overall: oral mucosa clear 05/16/2012 None Full Exam - General 1995 Ears/Nose/Throat oral cavity/pharynx/larynx Overall: oropharyngeal mucosa clear 05/16/2012 None Full Exam - General 1995 Ears/Nose/Throat oral cavity/pharynx/larynx Overall: no masses 05/16/2012 None Full Exam - General 1994 Respiratory auscultation Overall: breath sounds clear bilaterally 05/16/2012 None Full Exam - General 1994 Respiratory respiratory effort/rhythm Overall: no retractions 05/16/2012 None Full Exam - General 1994 Respiratory respiratory effort/rhythm Overall: normal rate 05/16/2012 None Full Exam - General 1994 Cardiovascular extremities Overall: no clubbing 05/16/2012 None Full Exam - General 1994 Cardiovascular extremities Edema present: severity 1+ - 4 +: _ 05/16/2012 None Full Exam - General 1994 Cardiovascular extremities Edema present: bilateral 05/16/2012 None Full Exam - General 1994 Cardiovascular auscultation of heart Overall: regular rate 05/16/2012 None Full Exam - General 1994 Cardiovascular auscultation of heart Systolic murmur: holosystolic 05/16/2012 None Full Exam - General 1994 Cardiovascular auscultation of heart Systolic murmur grade: II/ 05/16/2012 None Full Exam - General 1994 Abdomen abdominal exam Overall: no tenderness 05/16/2012 None Full Exam - General 1994 Abdomen abdominal exam Overall: normal bowel sounds 05/16/2012 None Full Exam - General 1994 Lymphatic neck nodes Overall: anterior cervical chain benign 05/16/2012 None Full Exam - General 1994 Lymphatic neck nodes Overall: posterior cervical chain benign 05/16/2012 None Full Exam - General 1994 Neurologic gait Overall: no ataxia, no unsteadiness 05/16/2012 None Full Exam - General 1994 Psychiatric orientation/consciousness Overall: oriented to person, place and time 05/16/2012 None Full Exam - General 1994 Psychiatric mood and affect Overall: normal mood and affect 05/16/2012 None Full Exam - General 1994 Psychiatric mood and affect Mood: happy 05/16/2012 None Full Exam - General 1994 Musculoskeletal upper extremity Inspection - elbow: a normal exam 05/16/2012 None Full Exam - General 1994 Musculoskeletal upper extremity Palpation - elbow: tender medial epicondyle 05/16/2012 None Full Exam - General 1994 Musculoskeletal upper extremity ROM - elbow: a normal exam 05/16/2012 None Full Exam - General 1994 Musculoskeletal upper extremity Stability - elbow: a normal exam 05/16/2012 None Full Exam - General 1994 Musculoskeletal upper extremity Muscle Strength/Tone - elbow: a normal exam 05/16/2012 None Full Exam - General 1994 Constitutional general appearance Overall: well developed 02/29/2012 None Full Exam - General 1994 Constitutional general appearance Overall: in no acute distress 02/29/2012 None Full Exam - General 1994 Constitutional general appearance Overall: well nourished 02/29/2012 None Full Exam - General 1994 Eyes pupils and irises Overall: pupils equal, round, reactive to light and accomodation 02/29/2012 None Full Exam - General 1994 Ears/Nose/Throat otoscopic exam Overall: external auditory canals clear 02/29/2012 None Full Exam - General 1994 Ears/Nose/Throat otoscopic exam Overall: tympanic membranes clear 02/29/2012 None Full Exam - General 1994 Ears/Nose/Throat oral cavity/pharynx/larynx Overall: oral mucosa clear 02/29/2012 None Full Exam - General 1995 Ears/Nose/Throat oral cavity/pharynx/larynx Overall: oropharyngeal mucosa clear 02/29/2012 None Full Exam - General 1995 Ears/Nose/Throat oral cavity/pharynx/larynx Overall: no masses 02/29/2012 None Full Exam - General 1994 Respiratory auscultation Overall: breath sounds clear bilaterally 02/29/2012 None Full Exam - General 1994 Respiratory respiratory effort/rhythm Overall: no retractions 02/29/2012 None Full Exam - General 1994 Respiratory respiratory effort/rhythm Overall: normal rate 02/29/2012 None Full Exam - General 1994 Cardiovascular extremities Overall: no clubbing 02/29/2012 None Full Exam - General 1994 Cardiovascular auscultation of heart Overall: regular rate 02/29/2012 None Full Exam - General 1994 Cardiovascular auscultation of heart Systolic murmur: holosystolic 02/29/2012 None Full Exam - General 1994 Cardiovascular auscultation of heart Systolic murmur grade: II/ 02/29/2012 None Full Exam - General 1994 Lymphatic neck nodes Overall: anterior cervical chain benign 02/29/2012 None Full Exam - General 1994 Lymphatic neck nodes Overall: posterior cervical chain benign 02/29/2012 None Full Exam - General 1994 Integument inspection of skin Dermatitis: pustule 02/29/2012 None Full Exam - General 1994 Integument inspection of skin Dermatitis: erythema 02/29/2012 None Full Exam - General 1994 Integument inspection of skin Location: left foot 02/29/2012 on left great toe Full Exam - General 1994 Neurologic gait Overall: no ataxia, no unsteadiness 02/29/2012 None Full Exam - General 1994 Psychiatric orientation/consciousness Overall: oriented to person, place and time 02/29/2012 None Full Exam - General 1994 Psychiatric mood and affect Overall: normal mood and affect 02/29/2012 None Full Exam - General 1994 Psychiatric mood and affect Mood: happy 02/29/2012 None Full Exam - General 1994 Cardiovascular extremities Edema present: severity 1+ - 4 +: 1 02/29/2012 None Full Exam - General 1994 Cardiovascular extremities Edema present: bilateral 02/29/2012 None Full Exam - General 1994 Abdomen abdominal exam Overall: no tenderness 02/29/2012 None Full Exam - General 1994 Abdomen abdominal exam Overall: normal bowel sounds 02/29/2012 None Full Exam - General 1994 Constitutional general appearance Overall: well developed 02/08/2012 None Full Exam - General 1994 Constitutional general appearance Overall: in no acute distress 02/08/2012 None Full Exam - General 1994 Constitutional general appearance Overall: well nourished 02/08/2012 None Full Exam - General 1994 Cardiovascular auscultation of heart Systolic murmur grade: II/ 02/08/2012 None Full Exam - General 1994 Lymphatic neck nodes Overall: anterior cervical chain benign 02/08/2012 None Full Exam - General 1994 Lymphatic neck nodes Overall: posterior cervical chain benign 02/08/2012 None Full Exam - General 1994 Integument inspection of skin Dermatitis: pustule 02/08/2012 None Full Exam - General 1994 Integument inspection of skin Dermatitis: erythema 02/08/2012 None Full Exam - General 1994 Integument inspection of skin Location: left foot 02/08/2012 on left great toe Full Exam - General 1994 Neurologic gait Overall: no ataxia, no unsteadiness 02/08/2012 None Full Exam - General 1994 Psychiatric orientation/consciousness Overall: oriented to person, place and time 02/08/2012 None Full Exam - General 1994 Psychiatric mood and affect Overall: normal mood and affect 02/08/2012 None Full Exam - General 1994 Psychiatric mood and affect Mood: happy 02/08/2012 None Full Exam - General 1994 Eyes pupils and irises Overall: pupils equal, round, reactive to light and accomodation 02/08/2012 None Full Exam - General 1994 Ears/Nose/Throat otoscopic exam Overall: external auditory canals clear 02/08/2012 None Full Exam - General 1995 Ears/Nose/Throat otoscopic exam Overall: tympanic membranes clear 02/08/2012 None Full Exam - General 1994 Ears/Nose/Throat oral cavity/pharynx/larynx Overall: oral mucosa clear 02/08/2012 None Full Exam - General 1995 Ears/Nose/Throat oral cavity/pharynx/larynx Overall: oropharyngeal mucosa clear 02/08/2012 None Full Exam - General 1994 Ears/Nose/Throat oral cavity/pharynx/larynx Overall: no masses 02/08/2012 None Full Exam - General 1994 Respiratory auscultation Overall: breath sounds clear bilaterally 02/08/2012 None Full Exam - General 1994 Respiratory respiratory effort/rhythm Overall: no retractions 02/08/2012 None Full Exam - General 1994 Respiratory respiratory effort/rhythm Overall: normal rate 02/08/2012 None Full Exam - General 1994 Cardiovascular extremities Overall: no clubbing 02/08/2012 None Full Exam - General 1994 Cardiovascular auscultation of heart Overall: regular rate 02/08/2012 None Full Exam - General 1994 Cardiovascular auscultation of heart Systolic murmur: holosystolic 02/08/2012 None Full Exam - General 1994 Constitutional general appearance Overall: well nourished 02/01/2012 None Full Exam - General 1994 Constitutional general appearance Overall: well developed 02/01/2012 None Full Exam - General 1994 Constitutional general appearance Overall: in no acute distress 02/01/2012 None Full Exam - General 1994 Eyes pupils and irises Overall: pupils equal, round, reactive to light and accomodation 02/01/2012 None Full Exam - General 1994 Ears/Nose/Throat otoscopic exam Overall: tympanic membranes clear 02/01/2012 None Full Exam - General 1994 Ears/Nose/Throat otoscopic exam Overall: external auditory canals clear 02/01/2012 None Full Exam - General 1994 Ears/Nose/Throat oral cavity/pharynx/larynx Overall: oropharyngeal mucosa clear 02/01/2012 None Full Exam - General 1994 Ears/Nose/Throat oral cavity/pharynx/larynx Overall: no masses 02/01/2012 None Full Exam - General 1994 Ears/Nose/Throat oral cavity/pharynx/larynx Overall: oral mucosa clear 02/01/2012 None Full Exam - General 1995 Respiratory respiratory effort/rhythm Overall: normal rate 02/01/2012 None Full Exam - General 1995 Respiratory respiratory effort/rhythm Overall: no retractions 02/01/2012 None Full Exam - General 1994 Respiratory auscultation Overall: breath sounds clear bilaterally 02/01/2012 None Full Exam - General 1994 Cardiovascular extremities Overall: no clubbing 02/01/2012 None Full Exam - General 1994 Cardiovascular auscultation of heart Overall: regular rate 02/01/2012 None Full Exam - General 1994 Cardiovascular auscultation of heart Systolic murmur: holosystolic 02/01/2012 None Full Exam - General 1994 Cardiovascular auscultation of heart Systolic murmur grade: II/ 02/01/2012 None Full Exam - General 1994 Lymphatic neck nodes Overall: anterior cervical chain benign 02/01/2012 None Full Exam - General 1994 Lymphatic neck nodes Overall: posterior cervical chain benign 02/01/2012 None Full Exam - General 1994 Integument inspection of skin Dermatitis: pustule 02/01/2012 None Full Exam - General 1994 Integument inspection of skin Dermatitis: erythema 02/01/2012 None Full Exam - General 1994 Integument inspection of skin Location: left foot 02/01/2012 on left great toe Full Exam - General 1994 Neurologic gait Overall: no ataxia, no unsteadiness 02/01/2012 None Full Exam - General 1994 Psychiatric orientation/consciousness Overall: oriented to person, place and time 02/01/2012 None Full Exam - General 1994 Psychiatric mood and affect Mood: happy 02/01/2012 None Full Exam - General 1994 Psychiatric mood and affect Overall: normal mood and affect 02/01/2012 None Full Exam - ENT Constitutional general appearance Overall: well nourished 01/22/2012 None Full Exam - ENT Constitutional general appearance Overall: well developed 01/22/2012 None Full Exam - ENT Constitutional general appearance Overall: in no acute distress 01/22/2012 None Full Exam - ENT Ears/Nose/Throat oropharynx Oral mucosa: aphthous ulcer 01/22/2012 to left lower inner lip and under tongue Full Exam - ENT Ears/Nose/Throat oropharynx Mobile tongue: soft 01/22/2012 round shallow ulcer with grayish base Full Exam - ENT Respiratory auscultation Overall: breath sounds clear bilaterally 01/22/2012 None Full Exam - ENT Respiratory inspection Overall: no retractions 01/22/2012 None Full Exam - ENT Respiratory inspection Overall: normal rate 08/2011 None Full Exam - ENT Cardiovascular auscultation of heart Overall: regular rate 01/22/2012 None Full Exam - ENT Cardiovascular auscultation of heart Rhythm: regular rhythm 01/22/2012 None Full Exam - ENT Cardiovascular auscultation of heart Murmur: previously known murmur unchanged 01/22/2012 None Full Exam - ENT Cardiovascular auscultation of heart Systolic murmur: holosystolic 01/22/2012 None Full Exam - ENT Cardiovascular auscultation of heart Systolic murmur grade: II/ 01/22/2012 None Full Exam - ENT Neurologic orientation Overall: oriented to person, place and time 01/22/2012 None Full Exam - ENT Face and Head palpation Left frontal sinus: tender 10/19/2011 None Full Exam - ENT Face and Head palpation Right frontal sinus: tender 10/19/2011 None Full Exam - ENT Respiratory inspection Overall: no retractions 10/19/2011 None Full Exam - ENT Respiratory inspection Overall: normal rate None Full Exam - ENT Respiratory auscultation Overall: breath sounds clear bilaterally 10/19/2011 None Full Exam - ENT Cardiovascular auscultation of heart Rate: normal rate 10/19/2011 None Full Exam - ENT Cardiovascular auscultation of heart Rhythm: regular rhythm 10/19/2011 None Full Exam - ENT Cardiovascular auscultation of heart Systolic murmur: holosystolic 10/19/2011 None Full Exam - ENT Cardiovascular auscultation of heart Systolic murmur grade: II/ 10/19/2011 None Full Exam - ENT Lymphatic palpation of lymph nodes Overall: anterior cervical chain benign 10/19/2011 None Full Exam - ENT Lymphatic palpation of lymph nodes Overall: posterior cervical chain benign 10/19/2011 None Full Exam - ENT Neurologic orientation Overall: oriented to person, place and time 10/19/2011 None Full Exam - ENT Constitutional general appearance Overall: well nourished 10/19/2011 None Full Exam - ENT Constitutional general appearance Overall: well developed 10/19/2011 None Full Exam - ENT Constitutional general appearance Overall: in no acute distress 10/19/2011 None Full Exam - ENT Ears/Nose/Throat otoscopic exam Overall: external auditory canals normal 10/19/2011 None Full Exam - ENT Ears/Nose/Throat otoscopic exam Overall: tympanic membranes normal 10/19/2011 None Full Exam - ENT Ears/Nose/Throat oropharynx Overall: oral mucosa clear 10/19/2011 None Full Exam - ENT Ears/Nose/Throat oropharynx Posterior Pharynx: a normal exam 10/19/2011 None Full Exam - ENT Face and Head palpation Left maxillary sinus: tender 10/19/2011 None Full Exam - ENT Face and Head palpation Right maxillary sinus: tender 10/19/2011 None Full Exam - Genitourinary/Female Genitourinary bladder Overall: no tenderness 09/09/2011 None Full Exam - Genitourinary/Female Genitourinary bladder Overall: no mass lesions 09/09/2011 None Full Exam - Genitourinary/Female Genitourinary vagina Introitus: small 09/09/2011 None Full Exam - Genitourinary/Female Genitourinary vagina Vaginal discharge: absent 09/09/2011 None Full Exam - Genitourinary/Female Genitourinary vagina Vagina: no lesions present. 09/09/2011 cervix, uterus and ovaries are surgically absent. Full Exam - Genitourinary/Female Lymphatic inspection and palpation of nodes Overall: anterior cervical chain benign 09/09/2011 None Full Exam - Genitourinary/Female Lymphatic inspection and palpation of nodes Overall: posterior cervical chain benign 09/09/2011 None Full Exam - Genitourinary/Female Neurologic orientation Overall: oriented to person, place and time 09/09/2011 None Full Exam - Genitourinary/Female Psychiatric orientation/consciousness Overall: oriented to person, place and time 09/09/2011 None Full Exam - Genitourinary/Female Cardiovascular auscultation of heart Overall: regular rate 09/09/2011 None Full Exam - Genitourinary/Female Cardiovascular auscultation of heart Overall: normal heart sounds 09/09/2011 None Full Exam - Genitourinary/Female Abdomen abdominal exam Overall: non tender, non distended 09/09/2011 None Full Exam - Genitourinary/Female Genitourinary breast inspection & palpation Overall: breasts symmetric and without lesions 09/09/2011 None Full Exam - Genitourinary/Female Genitourinary breast inspection & palpation Overall: normal chest shape 09/09/2011 None Full Exam - Genitourinary/Female Genitourinary external genitalia Overall: no discharge 09/09/2011 None Full Exam - Genitourinary/Female Constitutional general appearance Overall: well nourished 09/09/2011 None Full Exam - Genitourinary/Female Constitutional general appearance Overall: well developed 09/09/2011 None Full Exam - Genitourinary/Female Constitutional general appearance Overall: in no acute distress 09/09/2011 None Full Exam - Genitourinary/Female Genitourinary external genitalia Overall: no lesions 09/09/2011 None Full Exam - Genitourinary/Female Genitourinary urethral meatus Overall: normal size and location 09/09/2011 None Full Exam - Genitourinary/Female Genitourinary urethra Overall: no masses 09/09/2011 None Full Exam - Genitourinary/Female Genitourinary urethra Overall: no tenderness 09/09/2011 None Full Exam - Genitourinary/Female Genitourinary urethra Overall: no scarring 09/09/2011 None Full Exam - Genitourinary/Female Eyes conjunctiva/eyelids Overall: conjunctiva clear 09/09/2011 None Full Exam - Genitourinary/Female Eyes pupils and irises Overall: pupils equal, round, reactive to light and accomodation 09/09/2011 None Full Exam - Genitourinary/Female Ears/Nose/Throat otoscopic exam Overall: external auditory canals clear 09/09/2011 None Full Exam - Genitourinary/Female Ears/Nose/Throat otoscopic exam Overall: tympanic membranes clear 09/09/2011 None Full Exam - Genitourinary/Female Ears/Nose/Throat oral cavity/pharynx/larynx Overall: oral mucosa clear 09/09/2011 None Full Exam - Genitourinary/Female Respiratory auscultation Overall: breath sounds clear bilaterally 09/09/2011 None Full Exam - Genitourinary/Female Respiratory respiratory effort/rhythm Overall: no retractions 09/09/2011 None Full Exam - Genitourinary/Female Respiratory respiratory effort/rhythm Overall: normal rate 09/09/2011 None Full Exam - ENT Constitutional general appearance Overall: in no acute distress 08/13/2011 None Full Exam - ENT Ears/Nose/Throat otoscopic exam Overall: external auditory canals normal 08/13/2011 None Full Exam - ENT Ears/Nose/Throat otoscopic exam Overall: tympanic membranes normal 08/13/2011 None Full Exam - ENT Ears/Nose/Throat oropharynx Overall: oral mucosa clear 08/13/2011 None Full Exam - ENT Ears/Nose/Throat oropharynx Posterior Pharynx: a normal exam 08/13/2011 None Full Exam - ENT Face and Head palpation Left maxillary sinus: tender 08/13/2011 None Full Exam - ENT Face and Head palpation Right maxillary sinus: tender 08/13/2011 None Full Exam - ENT Face and Head palpation Left frontal sinus: tender 08/13/2011 None Full Exam - ENT Face and Head palpation Right frontal sinus: tender 08/13/2011 None Full Exam - ENT Respiratory inspection Overall: no retractions 08/13/2011 None Full Exam - ENT Respiratory inspection Overall: normal rate None Full Exam - ENT Respiratory auscultation Overall: breath sounds clear bilaterally 08/13/2011 None Full Exam - ENT Cardiovascular auscultation of heart Rate: normal rate 08/13/2011 None Full Exam - ENT Cardiovascular auscultation of heart Rhythm: regular rhythm 08/13/2011 None Full Exam - ENT Constitutional general appearance Overall: well nourished 08/13/2011 None Full Exam - ENT Constitutional general appearance Overall: well developed 08/13/2011 None Full Exam - ENT Cardiovascular auscultation of heart Systolic murmur: holosystolic 08/13/2011 None Full Exam - ENT Cardiovascular auscultation of heart Systolic murmur grade: II/ 08/13/2011 None Full Exam - ENT Lymphatic palpation of lymph nodes Overall: anterior cervical chain benign 08/13/2011 None Full Exam - ENT Lymphatic palpation of lymph nodes Overall: posterior cervical chain benign 08/13/2011 None Full Exam - ENT Neurologic orientation Overall: oriented to person, place and time 08/13/2011 None Full Exam - ENT Cardiovascular auscultation of heart Rhythm: regular rhythm 07/02/2011 None Full Exam - ENT Cardiovascular auscultation of heart S1: a normal exam 07/02/2011 None Full Exam - ENT Cardiovascular auscultation of heart S2: a normal exam 07/02/2011 None Full Exam - ENT Cardiovascular auscultation of heart S3 (ventricular gallop): present 07/02/2011 None Full Exam - ENT Cardiovascular auscultation of heart S4 (atrial gallop): present 07/02/2011 None Full Exam - ENT Musculoskeletal left lower extremity Inspection - left knee: swelling 07/02/2011 None Full Exam - ENT Musculoskeletal left lower extremity Palpation - left knee: small effusion 07/02/2011 None Full Exam - ENT Musculoskeletal left lower extremity ROM - left knee: pain with flexion 07/02/2011 None Full Exam - ENT Musculoskeletal left lower extremity ROM - left knee: pain with extension 07/02/2011 None Full Exam - ENT Musculoskeletal left lower extremity Muscle Strength/Tone - left knee: weak 07/02/2011 None Full Exam - ENT Neurologic mood and affect Overall: normal mood 07/02/2011 None Full Exam - ENT Neurologic mood and affect Overall: normal affect 07/02/2011 None Full Exam - ENT Neurologic mood and affect Mood: a normal exam 07/02/2011 None Full Exam - ENT Neurologic mood and affect Affect: a normal exam 07/02/2011 None Full Exam - ENT Respiratory auscultation Overall: breath sounds clear bilaterally 07/02/2011 None Full Exam - ENT Respiratory auscultation Diffuse: a normal exam 07/02/2011 None Full Exam - ENT Respiratory auscultation Left upper lung field: a normal exam 07/02/2011 None Full Exam - ENT Respiratory auscultation Left lower lung field: a normal exam 07/02/2011 None Full Exam - ENT Respiratory auscultation Right upper lung field: a normal exam 07/02/2011 None Full Exam - ENT Respiratory auscultation Right middle lung field: a normal exam 07/02/2011 None Full Exam - ENT Respiratory auscultation Right lower lung field: a normal exam 07/02/2011 None Full Exam - ENT Cardiovascular auscultation of heart Overall: regular rate 07/02/2011 None Full Exam - ENT Cardiovascular auscultation of heart Overall: normal heart sounds 07/02/2011 None Full Exam - ENT Cardiovascular auscultation of heart Rate: normal rate 07/02/2011 None Full Exam - ENT Neurologic orientation Overall: oriented to person, place and time 07/02/2011 None Full Exam - ENT Ears/Nose/Throat external ear and nose Nose lesion: raised 07/02/2011 None Full Exam - ENT Ears/Nose/Throat external ear and nose Nose lesion: pigmented 07/02/2011 None Full Exam - ENT Constitutional general appearance Hygiene/Attention to Grooming: normal grooming 07/02/2011 None Full Exam - ENT Ears/Nose/Throat otoscopic exam Overall: external auditory canals normal 07/02/2011 None Full Exam - ENT Ears/Nose/Throat otoscopic exam Overall: tympanic membranes normal 07/02/2011 None Full Exam - ENT Ears/Nose/Throat otoscopic exam Left external auditory canal: a normal exam 07/02/2011 None Full Exam - ENT Ears/Nose/Throat otoscopic exam Left external auditory canal: nontender 07/02/2011 None Full Exam - ENT Ears/Nose/Throat otoscopic exam Right external auditory canal: a normal exam 07/02/2011 None Full Exam - ENT Ears/Nose/Throat otoscopic exam Right external auditory canal: nontender 07/02/2011 None Full Exam - ENT Ears/Nose/Throat otoscopic exam Left tympanic membrane: a normal exam 07/02/2011 None Full Exam - ENT Ears/Nose/Throat otoscopic exam Right tympanic membrane: a normal exam 07/02/2011 None Full Exam - ENT Ears/Nose/Throat otoscopic exam [place]: a normal exam 07/02/2011 None Full Exam - ENT Respiratory inspection Overall: no retractions 07/02/2011 None Full Exam - ENT Respiratory inspection Overall: normal rate 05/2011 None Full Exam - ENT Respiratory inspection Rate: a normal exam 05/2011 None Full Exam - ENT Respiratory inspection Rhythm: a normal exam None Full Exam - ENT Constitutional general appearance Overall: well nourished 07/02/2011 None Full Exam - ENT Constitutional general appearance Overall: well developed 07/02/2011 None Full Exam - ENT Constitutional general appearance Overall: in no acute distress 07/02/2011 None Full Exam - ENT Constitutional general appearance Development: well developed 07/02/2011 None Full Exam - ENT Constitutional general appearance Nourishment: well nourished 07/02/2011 None Full Exam - ENT Constitutional general appearance Evidence of Distress: in no acute distress 07/02/2011 None Full Exam - ENT Constitutional general appearance Hygiene/Attention to Grooming: good hygiene 07/02/2011 None Full Exam - ENT Constitutional general appearance Overall: well nourished 06/24/2011 None Full Exam - ENT Neurologic mood and affect Mood: a normal exam 06/24/2011 None Full Exam - ENT Neurologic mood and affect Affect: a normal exam 06/24/2011 None Full Exam - ENT Neurologic orientation Overall: oriented to person, place and time 06/24/2011 None Full Exam - ENT Musculoskeletal left lower extremity Inspection - left knee: swelling 06/24/2011 None Full Exam - ENT Musculoskeletal left lower extremity Palpation - left knee: small effusion 06/24/2011 None Full Exam - ENT Musculoskeletal left lower extremity ROM - left knee: pain with flexion 06/24/2011 None Full Exam - ENT Musculoskeletal left lower extremity ROM - left knee: pain with extension 06/24/2011 None Full Exam - ENT Musculoskeletal left lower extremity Muscle Strength/Tone - left knee: weak 06/24/2011 None Full Exam - ENT Constitutional general appearance Overall: well developed 06/24/2011 None Full Exam - ENT Constitutional general appearance Overall: in no acute distress 06/24/2011 None Full Exam - ENT Constitutional general appearance Development: well developed 06/24/2011 None Full Exam - ENT Constitutional general appearance Nourishment: well nourished 06/24/2011 None Full Exam - ENT Constitutional general appearance Evidence of Distress: in no acute distress 06/24/2011 None Full Exam - ENT Constitutional general appearance Hygiene/Attention to Grooming: good hygiene 06/24/2011 None Full Exam - ENT Constitutional general appearance Hygiene/Attention to Grooming: normal grooming 06/24/2011 None Full Exam - ENT Ears/Nose/Throat otoscopic exam Overall: external auditory canals normal 06/24/2011 None Full Exam - ENT Ears/Nose/Throat otoscopic exam Overall: tympanic membranes normal 06/24/2011 None Full Exam - ENT Ears/Nose/Throat otoscopic exam Left external auditory canal: a normal exam 06/24/2011 None Full Exam - ENT Ears/Nose/Throat otoscopic exam Left external auditory canal: nontender 06/24/2011 None Full Exam - ENT Ears/Nose/Throat otoscopic exam Right external auditory canal: a normal exam 06/24/2011 None Full Exam - ENT Ears/Nose/Throat otoscopic exam Right external auditory canal: nontender 06/24/2011 None Full Exam - ENT Ears/Nose/Throat otoscopic exam Left tympanic membrane: a normal exam 06/24/2011 None Full Exam - ENT Ears/Nose/Throat otoscopic exam Right tympanic membrane: a normal exam 06/24/2011 None Full Exam - ENT Ears/Nose/Throat otoscopic exam [place]: a normal exam 06/24/2011 None Full Exam - ENT Respiratory inspection Overall: no retractions 06/24/2011 None Full Exam - ENT Respiratory inspection Overall: normal rate 09/2010 None Full Exam - ENT Respiratory inspection Rate: a normal exam 09/2010 None Full Exam - ENT Respiratory inspection Rhythm: a normal exam None Full Exam - ENT Respiratory auscultation Overall: breath sounds clear bilaterally 06/24/2011 None Full Exam - ENT Respiratory auscultation Diffuse: a normal exam 06/24/2011 None Full Exam - ENT Respiratory auscultation Left upper lung field: a normal exam 06/24/2011 None Full Exam - ENT Respiratory auscultation Left lower lung field: a normal exam 06/24/2011 None Full Exam - ENT Respiratory auscultation Right upper lung field: a normal exam 06/24/2011 None Full Exam - ENT Respiratory auscultation Right middle lung field: a normal exam 06/24/2011 None Full Exam - ENT Respiratory auscultation Right lower lung field: a normal exam 06/24/2011 None Full Exam - ENT Cardiovascular auscultation of heart Overall: regular rate 06/24/2011 None Full Exam - ENT Cardiovascular auscultation of heart Overall: normal heart sounds 06/24/2011 None Full Exam - ENT Cardiovascular auscultation of heart Rate: normal rate 06/24/2011 None Full Exam - ENT Cardiovascular auscultation of heart Rhythm: regular rhythm 06/24/2011 None Full Exam - ENT Cardiovascular auscultation of heart S1: a normal exam 06/24/2011 None Full Exam - ENT Cardiovascular auscultation of heart S2: a normal exam 06/24/2011 None Full Exam - ENT Cardiovascular auscultation of heart S3 (ventricular gallop): present 06/24/2011 None Full Exam - ENT Cardiovascular auscultation of heart S4 (atrial gallop): present 06/24/2011 None Full Exam - ENT Chest/Breast breast/ chest inspection Overall: normal chest shape 06/24/2011 None Full Exam - ENT Abdomen abdominal exam Overall: no tenderness 06/24/2011 None Full Exam - ENT Abdomen abdominal exam Overall: normal bowel sounds 06/24/2011 None Full Exam - ENT Neurologic mood and affect Overall: normal mood 06/24/2011 None Full Exam - ENT Neurologic mood and affect Overall: normal affect 06/24/2011 None Full Exam - ENT Constitutional general appearance Hygiene/Attention to Grooming: normal grooming 04/16/2011 None Full Exam - ENT Constitutional general appearance Hygiene/Attention to Grooming: good hygiene 04/16/2011 None Full Exam - ENT Constitutional general appearance Evidence of Distress: in no acute distress 04/16/2011 None Full Exam - ENT Constitutional general appearance Overall: well developed 04/16/2011 None Full Exam - ENT Constitutional general appearance Overall: in no acute distress 04/16/2011 None Full Exam - ENT Constitutional general appearance Overall: well nourished 04/16/2011 None Full Exam - ENT Constitutional general appearance Development: well developed 04/16/2011 None Full Exam - ENT Constitutional general appearance Nourishment: well nourished 04/16/2011 None Full Exam - ENT Ears/Nose/Throat otoscopic exam Right external auditory canal: nontender 04/16/2011 None Full Exam - ENT Ears/Nose/Throat otoscopic exam Right external auditory canal: a normal exam 04/16/2011 None Full Exam - ENT Ears/Nose/Throat otoscopic exam Left tympanic membrane: a normal exam 04/16/2011 None Full Exam - ENT Ears/Nose/Throat otoscopic exam Left external auditory canal: a normal exam 04/16/2011 None Full Exam - ENT Ears/Nose/Throat otoscopic exam Left external auditory canal: nontender 04/16/2011 None Full Exam - ENT Ears/Nose/Throat otoscopic exam Overall: external auditory canals normal 04/16/2011 None Full Exam - ENT Ears/Nose/Throat otoscopic exam Overall: tympanic membranes normal 04/16/2011 None Full Exam - ENT Ears/Nose/Throat otoscopic exam [place]: a normal exam 04/16/2011 None Full Exam - ENT Ears/Nose/Throat otoscopic exam Right tympanic membrane: a normal exam 04/16/2011 None Full Exam - ENT Ears/Nose/Throat lips/ teeth/gingiva Gingiva: lesion 04/16/2011 None Full Exam - ENT Ears/Nose/Throat lips/ teeth/gingiva Teeth: edentulous 04/16/2011 None Full Exam - ENT Ears/Nose/Throat lips/ teeth/gingiva Lips: chancre 04/16/2011 internally Full Exam - ENT Respiratory auscultation Overall: breath sounds clear bilaterally 04/16/2011 None Full Exam - ENT Respiratory auscultation Left upper lung field: a normal exam 04/16/2011 None Full Exam - ENT Respiratory auscultation Right lower lung field: a normal exam 04/16/2011 None Full Exam - ENT Respiratory auscultation Right upper lung field: a normal exam 04/16/2011 None Full Exam - ENT Respiratory auscultation Right middle lung field: a normal exam 04/16/2011 None Full Exam - ENT Respiratory auscultation Diffuse: a normal exam 04/16/2011 None Full Exam - ENT Respiratory auscultation Left lower lung field: a normal exam 04/16/2011 None Full Exam - ENT Respiratory inspection Rhythm: a normal exam None Full Exam - ENT Respiratory inspection Overall: no retractions 04/16/2011 None Full Exam - ENT Respiratory inspection Overall: normal rate None Full Exam - ENT Respiratory inspection Rate: a normal exam None Full Exam - ENT Cardiovascular auscultation of heart S4 (atrial gallop): present 04/16/2011 None Full Exam - ENT Cardiovascular auscultation of heart S2: a normal exam 04/16/2011 None Full Exam - ENT Cardiovascular auscultation of heart S3 (ventricular gallop): present 04/16/2011 None Full Exam - ENT Cardiovascular auscultation of heart Rhythm: regular rhythm 04/16/2011 None Full Exam - ENT Cardiovascular auscultation of heart S1: a normal exam 04/16/2011 None Full Exam - ENT Cardiovascular auscultation of heart Rate: normal rate 04/16/2011 None Full Exam - ENT Cardiovascular auscultation of heart Overall: normal heart sounds 04/16/2011 None Full Exam - ENT Cardiovascular auscultation of heart Overall: regular rate 04/16/2011 None Full Exam - ENT Neurologic mood and affect Overall: normal affect 04/16/2011 None Full Exam - ENT Neurologic mood and affect Overall: normal mood 04/16/2011 None Full Exam - ENT Neurologic mood and affect Mood: a normal exam 04/16/2011 None Full Exam - ENT Neurologic mood and affect Affect: a normal exam 04/16/2011 None Full Exam - ENT Neurologic orientation Overall: oriented to person, place and time 04/16/2011 None Full Exam - ENT Chest/Breast breast/ chest inspection Overall: normal chest shape 04/16/2011 None Full Exam - ENT Abdomen abdominal exam Overall: no tenderness 04/16/2011 None Full Exam - ENT Abdomen abdominal exam Overall: normal bowel sounds 04/16/2011 None Procedures Procedure Codes Date FLU VAC NO PRSV 4 ABDOULAYE 3 YRS+ CPT-4: 76214 05/27/2017 ADMIN INFLUENZA VIRUS VAC CPT-4: G0008 05/27/2017 THER/PROPH/DIAG INJ SC/IM CPT-4: 83777 05/27/2017 VITAMIN B12 INJECTION CPT-4: J3420 05/27/2017 THER/PROPH/DIAG INJ SC/IM CPT-4: 32394 04/27/2017 VITAMIN B12 INJECTION CPT-4: J3420 04/27/2017 THER/PROPH/DIAG INJ SC/IM CPT-4: 67174 04/09/2017 VITAMIN B12 INJECTION CPT-4: J3420 04/09/2017 THER/PROPH/DIAG INJ SC/IM CPT-4: 56688 03/23/2017 VITAMIN B12 INJECTION CPT-4: J3420 03/23/2017 THER/PROPH/DIAG INJ SC/IM CPT-4: 51333 03/11/2017 VITAMIN B12 INJECTION CPT-4: J3420 03/11/2017 URINALYSIS NONAUTO W/O SCOPE CPT-4: 42558 02/22/2017 THER/PROPH/DIAG INJ SC/IM CPT-4: 60646 02/22/2017 TRIAMCINOLONE ACET INJ NOS CPT-4: J3301 02/22/2017 PPPS, SUBSEQ VISIT CPT -4: G0439 12/28/2016 URINALYSIS NONAUTO W/O SCOPE CPT-4: 85529 12/24/2016 THER/PROPH/DIAG INJ SC/IM CPT-4: 84584 10/14/2016 VITAMIN B12 INJECTION CPT-4: J3420 10/14/2016 THER/PROPH/DIAG INJ SC/IM CPT-4: 16324 09/16/2016 VITAMIN B12 INJECTION CPT-4: J3420 09/16/2016 THER/PROPH/DIAG INJ SC/IM CPT-4: 67016 08/11/2016 VITAMIN B12 INJECTION CPT-4: J3420 08/11/2016 URINALYSIS NONAUTO W/O SCOPE CPT-4: 42923 05/27/2016 ADMIN INFLUENZA VIRUS VAC CPT-4: G0008 04/23/2016 FLU VACC PRSV FREE INC ANTIG CPT-4: 03870 04/23/2016 URINALYSIS NONAUTO W/O SCOPE CPT-4: 85965 03/13/2016 URINALYSIS NONAUTO W/O SCOPE CPT-4: 46497 03/03/2016 VITAMIN B12 INJECTION CPT-4: J3420 12/03/2015 THER/PROPH/DIAG INJ SC/IM CPT-4: 62324 04/12/2015 VITAMIN B12 INJECTION CPT-4: J3420 04/12/2015 VITAMIN B12 INJECTION CPT-4: J3420 01/22/2015 THER/PROPH/DIAG INJ SC/IM CPT-4: 55390 01/22/2015 TRIAMCINOLONE ACET INJ NOS CPT-4: J3301 01/08/2015 THER/PROPH/DIAG INJ SC/IM CPT-4: 23628 01/08/2015 VITAMIN B12 INJECTION CPT-4: J3420 01/08/2015 THER/PROPH/DIAG INJ SC/IM CPT-4: 36658 11/28/2014 VITAMIN B12 INJECTION CPT-4: J3420 11/28/2014 THER/PROPH/DIAG INJ SC/IM CPT-4: 28383 10/04/2014 VITAMIN B12 INJECTION CPT-4: J3420 10/04/2014 VITAMIN B12 INJECTION CPT-4: J3420 09/10/2014 ADMIN PNEUMOCOCCAL VACCINE SNOMED CT: [id number] CPT-4: G0009 08/06/2014 Pneumococcal Polysaccharide Vaccine, 23-Valent, Ad CPT-4: 47074 08/06/2014 THER/PROPH/DIAG INJ SC/IM CPT-4: 68510 08/06/2014 VITAMIN B12 INJECTION CPT-4: J3420 08/06/2014 THER/PROPH/DIAG INJ SC/IM CPT-4: 51539 07/12/2014 VITAMIN B12 INJECTION CPT-4: J3420 07/12/2014 THER/PROPH/DIAG INJ SC/IM CPT-4: 24281 06/28/2014 VITAMIN B12 INJECTION CPT-4: J3420 06/28/2014 THER/PROPH/DIAG INJ SC/IM CPT-4: 70933 06/14/2014 VITAMIN B12 INJECTION CPT-4: J3420 06/14/2014 THER/PROPH/DIAG INJ SC/IM CPT-4: 66536 05/31/2014 VITAMIN B12 INJECTION CPT-4: J3420 05/31/2014 ADMIN INFLUENZA VIRUS VAC CPT-4: G0008 05/16/2014 FLU VAC NO PRSV 4 ABDOULAYE 3 YRS+ Assigned to/Ron Sandrine CPT-4: [id number] 05/16/2014 THER/PROPH/DIAG INJ SC/IM CPT-4: 97971 05/16/2014 VITAMIN B12 INJECTION CPT-4: J3420 05/16/2014 THER/PROPH/DIAG INJ SC/IM CPT-4: 75174 04/05/2014 VITAMIN B12 INJECTION CPT-4: J3420 04/05/2014 THER/PROPH/DIAG INJ SC/IM CPT-4: 49423 02/01/2014 VITAMIN B12 INJECTION CPT-4: J3420 02/01/2014 THER/PROPH/DIAG INJ SC/IM CPT-4: 86524 12/29/2013 VITAMIN B12 INJECTION CPT-4: J3420 12/29/2013 TRIAMCINOLONE ACET INJ NOS CPT-4: J3301 05/18/2013 DRAIN/INJECT JOINT/BURSA CPT-4: 14521 05/18/2013 THER/PROPH/DIAG INJ SC/IM CPT-4: 14265 04/18/2013 KETOROLAC TROMETHAMINE INJ CPT-4: J1885 04/18/2013 PRESCRIP TRANSMIT VIA ERX SY CPT-4: G8553 03/16/2013 PRESCRIP TRANSMIT VIA ERX SY CPT-4: G8553 01/26/2013 ROUTINE VENIPUNCTURE CPT-4: 38876 01/23/2013 ROUTINE VENIPUNCTURE CPT-4: 07824 12/27/2012 PRESCRIP TRANSMIT VIA ERX SY CPT-4: G8553 12/27/2012 ROUTINE VENIPUNCTURE CPT-4: 02120 10/07/2012 PRESCRIP TRANSMIT VIA ERX SY CPT-4: G8553 09/21/2012 PRESCRIP TRANSMIT VIA ERX SY CPT-4: G8553 08/02/2012 TRIAMCINOLONE ACET INJ NOS CPT-4: J3301 06/27/2012 PRESCRIP TRANSMIT VIA ERX SY CPT-4: G8553 06/27/2012 TRIAMCINOLONE ACET INJ NOS CPT-4: J3301 06/06/2012 DRAIN/INJECT JOINT/BURSA CPT-4: 20517 06/06/2012 VITAMIN B12 INJECTION CPT-4: J3420 02/08/2012 URINALYSIS NONAUTO W/O SCOPE CPT-4: 20167 02/08/2012 ROUTINE VENIPUNCTURE CPT-4: 18847 02/01/2012 ROCEPHIN, PER 250 MG CPT-4: J0696 02/01/2012 PRESCRIP TRANSMIT VIA ERX SY CPT-4: G8553 02/01/2012 THER/PROPH/DIAG INJ SC/IM CPT-4: 17013 02/01/2012 ROUTINE VENIPUNCTURE CPT-4: 18943 01/22/2012 PRESCRIP TRANSMIT VIA ERX SY CPT-4: G8553 01/22/2012 TRIAMCINOLONE ACET INJ NOS CPT-4: J3301 10/19/2011 CA SCREEN;PELVIC/BREAST EXAM CPT-4: G0101 09/09/2011 KETOROLAC TROMETHAMINE INJ CPT-4: J1885 07/15/2011 THER/PROPH/DIAG INJ SC/IM CPT-4: 17657 07/15/2011 THER/PROPH/DIAG INJ SC/IM CPT-4: 58092 07/02/2011 KETOROLAC TROMETHAMINE INJ CPT-4: J1885 07/02/2011 KETOROLAC TROMETHAMINE INJ CPT-4: J1885 06/24/2011 THER/PROPH/DIAG INJ SC/IM CPT-4: 52901 06/24/2011 Vital Signs Date Vital 09/09/2017 Blood Pressure 1: 158/96 Code : 8480-6 Heart Rate 1: 65 bpm SpO2: 96% 09/03/2017 Blood Pressure 1: 162/76 Code : 8480-6 BMI: 23.6 Code : 75219-5 Height: 5'5" Weight: 142 lbs 05/27/2017 Blood Pressure 1: 158/78 Code : 8480-6 BMI: 23.1 Code : 89660-9 Heart Rate 1 : 57 bpm Height: 5'5" SpO2: 99% Weight: 139 lbs 04/27/2017 Blood Pressure 1: 142/78 Code : 8480-6 Blood Pressure 1: 136/72 Code: 8480-6 BMI: 24.0 Code: 70388-0 Heart Rate 1: 69 bpm Height: 5'5" SpO2: 94% Weight: 144 lbs 03/09/2017 Blood Pressure 1: 138/80 Code : 8480-6 BMI: 23.5 Code : 83109-2 Heart Rate 1 : 76 bpm Height: 5'5" Weight: 141 lbs 4 oz 02/22/2017 Blood Pressure 1: 144/88 Code : 8480-6 BMI: 24.0 Code : 11752-7 Heart Rate 1 : 100 bpm Height: 5'5" SpO2: 92% Weight: 144 lbs 12/28/2016 Blood Pressure 1: 144/84 Code : 8480-6 BMI: 24.3 Code : 10936-5 Heart Rate 1 : 96 bpm Height: 5'5" SpO2: 97% Waist Measure (cm): 76 cm Weight: 146 lbs 12/24/2016 Blood Pressure 1: 148/86 Code : 8480-6 BMI: 24.3 Code : 64808-9 Heart Rate 1 : 93 bpm Height: 5'5" SpO2: 96% Weight: 146 lbs 10/06/2016 Blood Pressure 1: 144/72 Code : 8480-6 Heart Rate 1: 71 bpm Height: 5'5" SpO2: 98% 10/01/2016 Blood Pressure 1: 136/82 Code : 8480-6 Heart Rate 1: 62 bpm Height: 5'5" SpO2: 97% Weight: 09/01/2016 Blood Pressure 1: 130/66 Code : 8480-6 BMI: 23.8 Code : 91324-7 Heart Rate 1 : 70 bpm Height: 5'5" SpO2: 98% Weight: 143 lbs 08/11/2016 Blood Pressure 1: 140/80 Code : 8480-6 BMI: 24.0 Code : 91790-2 Height: 5'5" Weight: 144 lbs 8 oz 07/01/2016 Blood Pressure 1: 136/74 Code : 8480-6 BMI: 24.3 Code : 98133-0 Heart Rate 1 : 76 bpm Height: 5'5" SpO2: 97% Weight: 146 lbs 04/23/2016 Blood Pressure 1: 130/78 Code : 8480-6 BMI: 25.1 Code : 71795-3 Heart Rate 1 : 70 bpm Height: 5'5" SpO2: 97% Weight: 151 lbs 03/03/2016 Blood Pressure 1: 138/62 Code : 8480-6 BMI: 25.6 Code : 36688-2 Heart Rate 1 : 62 bpm Height: 5'5" SpO2: 99% Weight: 154 lbs 01/14/2016 Blood Pressure 1: 162/72 Code : 8480-6 BMI: 26.6 Code : 41883-5 Heart Rate 1 : 82 bpm Height: 5'5" SpO2: 98% Weight: 160 lbs 12/03/2015 Blood Pressure 1: 130/62 Code : 8480-6 BMI: 25.8 Code : 92267-6 Heart Rate 1 : 72 bpm Height: 5'5" SpO2: 98% Weight: 155 lbs 10/10/2015 Blood Pressure 1: 118/80 Code : 8480-6 BMI: 25.6 Code : 64972-9 Heart Rate 1 : 70 bpm Height: 5'5" SpO2: 98% Weight: 154 lbs 08/28/2015 Blood Pressure 1: 152/80 Code : 8480-6 BMI: 27.7 Code : 44461-9 Heart Rate 1 : 75 bpm Height: 5'5" SpO2: 98% Weight: 166 lbs 8 oz 06/12/2015 Blood Pressure 1: 142/64 Code : 8480-6 BMI: 27.5 Code : 00516-1 Heart Rate 1 : 66 bpm Height: 5'5" SpO2: 96% Weight: 165 lbs 05/09/2015 Blood Pressure 1: 122/70 Code : 8480-6 BMI: 27.3 Code : 88053-3 Heart Rate 1 : 69 bpm Height: 5'5" SpO2: 97% Weight: 164 lbs 04/12/2015 Blood Pressure 1: 122/62 Code : 8480-6 BMI: 27.6 Code : 08435-1 Heart Rate 1 : 69 bpm Height: 5'5" SpO2: 98% Weight: 166 lbs 03/12/2015 Blood Pressure 1: 108/70 Code : 8480-6 BMI: 26.8 Code : 55667-8 Heart Rate 1 : 73 bpm Height: 5'5" SpO2: 96% Weight: 161 lbs 01/08/2015 Blood Pressure 1: 136/76 Code : 8480-6 BMI: 28.8 Code : 50164-8 Heart Rate 1 : 73 bpm Height: 5'5" SpO2: 95% Weight: 173 lbs 10/04/2014 Blood Pressure 1: 138/86 Code : 8480-6 BMI: 29.0 Code : 01520-2 Heart Rate 1 : 76 bpm Height: 5'5" Weight: 174 lbs 09/10/2014 Blood Pressure 1: 110/60 Code : 8480-6 BMI: 29.6 Code : 60040-1 Heart Rate 1 : 75 bpm Height: 5'5" Weight: 178 lbs 08/06/2014 Blood Pressure 1: 138/78 Code : 8480-6 BMI: 28.6 Code : 04967-6 Heart Rate 1 : 76 bpm Height: 5'5" Weight: 172 lbs 07/12/2014 Blood Pressure 1: 126/82 Code : 8480-6 BMI: 28.5 Code : 02839-2 Heart Rate 1 : 72 bpm Height: 5'5" Weight: 171 lbs 05/16/2014 Blood Pressure 1: 110/62 Code : 8480-6 BMI: 29.0 Code : 22715-8 Heart Rate 1 : 74 bpm Height: 5'5" SpO2: 97% Weight: 174 lbs 04/05/2014 Blood Pressure 1: 142/80 Code : 8480-6 BMI: 29.6 Code : 64286-8 Heart Rate 1 : 60 bpm Height: 5'5" Weight: 178 lbs 03/05/2014 Blood Pressure 1: 118/70 Code : 8480-6 BMI: 30.8 Code : 32619-5 Heart Rate 1 : 64 bpm Height: 5'5" Weight: 185 lbs 02/01/2014 Blood Pressure 1: 118/60 Code : 8480-6 BMI: 30.6 Code : 46651-4 Heart Rate 1 : 60 bpm Height: 5'5" Weight: 184 lbs 12/07/2013 Blood Pressure 1: 106/58 Code : 8480-6 Heart Rate 1: 64 bpm Weight: 185 lbs 09/25/2013 Blood Pressure 1: 120/68 Code : 8480-6 BMI: 30.6 Code : 40580-4 Heart Rate 1 : 72 bpm Height: 5'5" Weight: 184 lbs 09/04/2013 Blood Pressure 1: 124/80 Code : 8480-6 BMI: 30.3 Code : 23798-1 Height: 5'5" Weight: 182 lbs 05/18/2013 Blood Pressure 1: 126/70 Code : 8480-6 Weight: 174 lbs 04/18/2013 Blood Pressure 1: 120/68 Code : 8480-6 BMI: 28.6 Code : 02698-8 Heart Rate 1 : 64 bpm Height: 5'5" Weight: 172 lbs 03/16/2013 Blood Pressure 1: 134/60 Code : 8480-6 BMI: 28.6 Code : 63919-4 Heart Rate 1 : 96 bpm Height: 5'5" Weight: 172 lbs 01/26/2013 Blood Pressure 1: 128/82 Code : 8480-6 BMI: 29.6 Code : 62663-2 Heart Rate 1 : 72 bpm Height: 5'5" Weight: 178 lbs 12/27/2012 Blood Pressure 1: 148/82 Code : 8480-6 Heart Rate 1: 76 bpm Weight: 179 lbs 10/11/2012 Blood Pressure 1: 130/80 Code : 8480-6 BMI: 30.5 Code : 38221-7 Heart Rate 1 : 68 bpm Height: 5'5" Weight: 183 lbs 09/21/2012 Blood Pressure 1: 142/86 Code : 8480-6 Heart Rate 1: 80 bpm Weight: 182 lbs 08/02/2012 Blood Pressure 1: 144/72 Code : 8480-6 Heart Rate 1: 72 bpm Temperature: 36.8 (C) / 98.2 (F) Weight: 179 lbs 06/27/2012 Blood Pressure 1: 136/84 Code : 8480-6 BMI: 29.5 Code : 41520-8 Heart Rate 1 : 68 bpm Height: 5'5" Respiratory Rate: 16 bpm Weight: 177 lbs 06/06/2012 Blood Pressure 1: 144/80 Code : 8480-6 BMI: 30.6 Code : 03071-4 Heart Rate 1 : 76 bpm Height: 5'5" Weight: 184 lbs 05/16/2012 Blood Pressure 1: 122/70 Code : 8480-6 Heart Rate 1: 80 bpm Respiratory Rate : 20 bpm Weight: 182 lbs 8 oz 02/29/2012 Blood Pressure 1: 148/70 Code : 8480-6 Heart Rate 1: 84 bpm Respiratory Rate : 16 bpm Weight: 190 lbs 02/08/2012 Blood Pressure 1: 126/72 Code : 8480-6 Heart Rate 1: 68 bpm Weight: 189 lbs 02/01/2012 Blood Pressure 1: 104/62 Code : 8480-6 Heart Rate 1: 84 bpm Weight: 193 lbs 01/22/2012 Blood Pressure 1: 120/58 Code : 8480-6 BMI: 31.1 Code : 83365-0 Heart Rate 1 : 78 bpm Height: 5'5" Weight: 187 lbs 10/19/2011 Blood Pressure 1: 112/60 Code : 8480-6 Heart Rate 1: 80 bpm SpO2: 97% Temperature: 36.7 (C) / 98.0 (F) Weight: 188 lbs 09/09/2011 Blood Pressure 1: 130/70 Code : 8480-6 BMI: 31.1 Code : 82105-5 Heart Rate 1 : 66 bpm Height: 5'5" Weight: 187 lbs 08/13/2011 Blood Pressure 1: 116/70 Code : 8480-6 BMI: 30.6 Code : 44904-9 Heart Rate 1 : 64 bpm Height: 5'5" Respiratory Rate: 20 bpm Weight: 184 lbs 07/02/2011 Blood Pressure 1: 112/60 Code : 8480-6 BMI: 30.4 Code : 00705-3 Heart Rate 1 : 66 bpm Height: 5'5" Respiratory Rate: 12 bpm Weight: 182 lbs 8 oz 06/24/2011 Blood Pressure 1: 127/58 Code : 8480-6 Heart Rate 1: 84 bpm Weight: 04/16/2011 Blood Pressure 1: 120/78 Code : 8480-6 BMI: 30.8 Code : 93154-4 Heart Rate 1 : 76 bpm Height: 5'5" Respiratory Rate: 16 bpm Weight: 185 lbs Functional Status No Functional Status data History of Present Illness Symptom Name Status Result Effective Date Notes depression Quality chronic 09/03/2017 None depression Onset and Resolution ongoing 09/03/2017 None depression Alleviating Factors medication 09/03/2017 None hypertension Quality primary hypertension 09/03/2017 None hypertension Onset and Resolution ongoing 09/03/2017 None hypertension Onset of Symptom during adulthood 09/03/2017 None hypertension Blood Pressure Values not checking blood pressure at home 09/03/2017 None hypertension Alleviating Factors medication 09/03/2017 None hypertension Pertinent Findings Denies dizziness 09/03/2017 None hypertension Pertinent Findings Denies edema 09/03/2017 None hypertension Pertinent Findings palpitations 09/03/2017 None depression Quality chronic 05/27/2017 None depression Onset and Resolution ongoing 05/27/2017 None depression Alleviating Factors medication 05/27/2017 None hypertension Onset and Resolution ongoing 05/27/2017 None hypertension Onset of Symptom during adulthood 05/27/2017 None hypertension Blood Pressure Values not checking blood pressure at home 05/27/2017 None hypertension Alleviating Factors medication 05/27/2017 None hypertension Pertinent Findings Denies dizziness 05/27/2017 None hypertension Pertinent Findings palpitations 05/27/2017 None hypertension Pertinent Findings Denies edema 05/27/2017 None hypertension Quality primary hypertension 05/27/2017 None blood pressure followup Quality intermittent 04/27/2017 None blood pressure followup Onset and Resolution ongoing 04/27/2017 None blood pressure followup Blood Pressure Values pt checking blood pressure at home, did not bring in to clinic 04/27/2017 None blood pressure followup Pertinent Findings anxiety 04/27/2017 None blood pressure followup Pertinent Findings Denies dizziness 04/27/2017 None blood pressure followup Pertinent Findings Denies dyspnea 04/27/2017 None medication follow up Location oral intake 04/27/2017 hydrocodone medication follow up Additional Comments medication use 04/27/2017 None medication follow up Additional Comments medication: hydrocodone 04/27/2017 None blood pressure followup Quality intermittent 03/09/2017 None blood pressure followup Onset and Resolution ongoing 03/09/2017 None blood pressure followup Blood Pressure Values pt checking blood pressure at home, did not bring in to clinic 03/09/2017 None blood pressure followup Pertinent Findings anxiety 03/09/2017 None blood pressure followup Pertinent Findings Denies dizziness 03/09/2017 None blood pressure followup Pertinent Findings Denies dyspnea 03/09/2017 None cough Location in the throat 02/22/2017 None cough Quality intermittent 02/22/2017 None cough Onset and Resolution ongoing 02/22/2017 None cough Onset of Symptom 2-3 days ago 02/22/2017 None cough Frequency of Episodes daily 02/22/2017 None cough Pertinent Findings Denies chest discomfort 02/22/2017 None cough Pertinent Findings Denies fever 02/22/2017 None cough Pertinent Findings Denies hoarseness 02/22/2017 None blood pressure followup Quality intermittent 02/22/2017 None blood pressure followup Onset and Resolution ongoing 02/22/2017 None blood pressure followup Blood Pressure Values pt checking blood pressure at home, did not bring in to clinic 02/22/2017 None blood pressure followup Pertinent Findings anxiety 02/22/2017 None blood pressure followup Pertinent Findings Denies dizziness 02/22/2017 None blood pressure followup Pertinent Findings Denies dyspnea 02/22/2017 None Annual Medicare Wellness Exam Alcohol Use does not drink any alcohol 12/28/2016 None Annual Medicare Wellness Exam Aspirin Use no 12/28/2016 None Annual Medicare Wellness Exam Blood Glucose (self reported) don't know 12/28/2016 None Annual Medicare Wellness Exam Blood Pressure (self reported ) borderline (120/80 - 139/89) 12/28/2016 None Annual Medicare Wellness Exam Cholesterol (self reported) desireable (below 200) 12/28/2016 None Annual Medicare Wellness Exam Depression (last 6 months) daily 12/28/2016 None Annual Medicare Wellness Exam Depression or Hopelessness almost never 12/28/2016 None Annual Medicare Wellness Exam Describe Your Health fair 12/28/2016 None Annual Medicare Wellness Exam Exercise Habits exercises 5 days per week 12/28/2016 None Annual Medicare Wellness Exam Exercise Habits exercises 30 minutes per day 12/28/2016 None Annual Medicare Wellness Exam Handling Stress has problems coping 12/28/2016 None Annual Medicare Wellness Exam Hemaglobin A-1C (self reported ) don't know 12/28/2016 None Annual Medicare Wellness Exam Hours of Sleep 7 12/28/2016 None Annual Medicare Wellness Exam Interaction with Friends yes 12/28/2016 None Annual Medicare Wellness Exam Interests & Pleasure daily 12/28/2016 None Annual Medicare Wellness Exam Life Satisfaction satisfied 12/28/2016 None Annual Medicare Wellness Exam Motor Vehicle Safety always fastens seat belt: y 12/28/2016 None Annual Medicare Wellness Exam Motor Vehicle Safety drives after drinking: n 12/28/2016 None Annual Medicare Wellness Exam Motor Vehicle Safety rides with someone who has been drinking: n 2016 None Annual Medicare Wellness Exam Nutrition servings of fried food / high fat foods per day: 0 2016 None Annual Medicare Wellness Exam Nutrition servings of high fiber / whole grain per day: 1 12/28/2016 None Annual Medicare Wellness Exam Nutrition servings of vegetables / fruit per day: 6 12/28/2016 None Annual Medicare Wellness Exam Smoking and Tobacco Use non smoker 12/28/2016 None Annual Medicare Wellness Exam Social & Emotional Support sometimes 12/28/2016 None Annual Medicare Wellness Exam Stress almost all of the time 12/28/2016 None Annual Medicare Wellness Exam Sun Exposure protects skin when outdoors: n 12/28/2016 None urinary urgency Quality constant 12/24/2016 None urinary urgency Onset and Resolution sudden in onset 12/24/2016 None urinary urgency Onset of Symptom 2 weeks ago 12/24/2016 None urinary urgency Frequency of Episodes daily 12/24/2016 None urinary frequency Quality constant 12/24/2016 None urinary frequency Onset and Resolution sudden in onset 12/24/2016 None urinary frequency Onset of Symptom 2 weeks ago 12/24/2016 None rash Location-Major on the hands 12/24/2016 None rash Color multicolored 12/24/2016 None rash Onset and Resolution ongoing 12/24/2016 None rash Pertinent Findings itching 12/24/2016 None rash Pertinent Findings tenderness 12/24/2016 None rash Location-Major on the upper body 10/06/2016 None rash Location-Major on the abdomen 10/06/2016 None rash Limitation on Activities does not limit activities 10/06/2016 None rash Pertinent Findings history of insect bite 10/06/2016 None rash Pertinent Findings Denies history of similar rash 10/06/2016 None rash Pertinent Findings itching 10/06/2016 None rash Pertinent Findings pain 10/06/2016 None rash Pertinent Findings tenderness 10/06/2016 None rash Location-Trunk on the upper chest 10/06/2016 None rash Location-Trunk on the mid chest 10/06/2016 None rash Location-Trunk on the right lower abdomen 10/06/2016 None rash Location-Trunk on the left lower abdomen 10/06/2016 None rash Quality acute None rash Quality constant 10/06/2016 None rash Quality erythematous 10/06/2016 None rash Quality painful 10/06/2016 None rash Quality pruritic 10/06/2016 None rash Quality uncomfortable 10/06/2016 None rash Alleviating Factors no alleviating factors 10/06/2016 None rash Severity moderate 10/06/2016 None rash Severity worsening 10/06/2016 None rash Color erythematous 10/06/2016 None rash Color red 2016 None rash Onset and Resolution sudden in onset 10/06/2016 None rash Onset of Symptom 4 days ago 10/06/2016 None paresthesia Location bilaterally 10/01/2016 feet-feels like they fall asleep paresthesia Location on both feet 10/01/2016 None paresthesia Quality acute 10/01/2016 None paresthesia Quality intermittent 10/01/2016 None paresthesia Onset and Resolution ongoing 10/01/2016 None paresthesia Onset of Symptom 3 months ago 10/01/2016 None paresthesia Limitation on Activities moderately limits activities 10/01/2016 None paresthesia Triggers no known associated factors 10/01/2016 None skin lesion Quality acute 10/01/2016 None skin lesion Onset and Resolution ongoing 10/01/2016 None skin lesion Severity mild 10/01/2016 None skin lesion Location in multiple areas 10/01/2016 on hands - dorsum of hands - right worse than left, raised irritated lesions hypertension Onset and Resolution ongoing 10/01/2016 None hypertension Onset of Symptom during adulthood 10/01/2016 None hypertension Blood Pressure Values not checking blood pressure at home 10/01/2016 None hypertension Alleviating Factors medication 10/01/2016 None hypertension Exacerbating Factors stress 10/01/2016 None hypertension Pertinent Findings dizziness 10/01/2016 occassionally hypertension Pertinent Findings Denies dyspnea 10/01/2016 None hypertension Pertinent Findings Denies edema 10/01/2016 None paresthesia Location bilaterally 09/01/2016 feet-feels like they fall asleep paresthesia Quality acute 09/01/2016 None paresthesia Onset and Resolution ongoing 09/01/2016 None paresthesia Triggers no known associated factors 09/01/2016 None skin lesion Onset and Resolution ongoing 09/01/2016 None skin lesion Severity mild 09/01/2016 None skin lesion Location in multiple areas 09/01/2016 on hands - dorsum of hands - right worse than left, raised irritated lesions hypertension Onset and Resolution ongoing 09/01/2016 None hypertension Onset of Symptom during adulthood 09/01/2016 None hypertension Blood Pressure Values not checking blood pressure at home 09/01/2016 None hypertension Alleviating Factors medication 09/01/2016 None hypertension Exacerbating Factors stress 09/01/2016 None hypertension Pertinent Findings dizziness 09/01/2016 occassionally hypertension Pertinent Findings Denies dyspnea 09/01/2016 None hypertension Pertinent Findings Denies edema 09/01/2016 None paresthesia Location on both feet 09/01/2016 None paresthesia Quality intermittent 09/01/2016 None paresthesia Limitation on Activities moderately limits activities 09/01/2016 None skin lesion Quality acute 09/01/2016 None paresthesia Onset of Symptom 3 months ago 09/01/2016 None paresthesia Location bilaterally 08/11/2016 feet-feels like they fall asleep paresthesia Onset and Resolution ongoing 08/11/2016 None paresthesia Quality acute 08/11/2016 None paresthesia Onset of Symptom 2 months ago 08/11/2016 None paresthesia Limitation on Activities does not limit activities 08/11/2016 None paresthesia Frequency of Episodes increasing 08/11/2016 None paresthesia Triggers no known associated factors 08/11/2016 None skin lesion Quality firm 07/01/2016 None skin lesion Onset and Resolution ongoing 07/01/2016 None skin lesion Severity mild 07/01/2016 None skin lesion Location in multiple areas 07/01/2016 on hands - dorsum of hands - right worse than left, raised irritated lesions foot pain Quality intermittent 04/23/2016 None foot pain Quality acute 04/23/2016 None foot pain Timing of Episodes at night 04/23/2016 None foot pain Timing of Episodes after periods of inactivity (poststatic) 04/23/2016 None foot pain Onset and Resolution sudden in onset 04/23/2016 None foot pain Onset of Symptom 1 months ago 04/23/2016 None foot pain Onset and Resolution ongoing 04/23/2016 None headache Location in the right posterior area 04/23/2016 None headache Location in the left posterior area 04/23/2016 None headache Quality acute 04/23/2016 None headache Quality intermittent 04/23/2016 None headache Onset of Symptom 4 days ago 04/23/2016 None headache Frequency of Episodes daily 04/23/2016 None foot pain Location on the left 04/23/2016 None foot pain Location on the right 04/23/2016 None headache Timing of Episodes in the afternoon 04/23/2016 None anxiety Quality intermittent 03/03/2016 None anxiety Onset of Symptom 6 months ago 03/03/2016 None anxiety Frequency of Episodes daily 03/03/2016 None anxiety Triggers activity 03/03/2016 None anxiety Triggers crowds and public places 03/03/2016 None anxiety Onset and Resolution ongoing 03/03/2016 None hypertension Onset and Resolution ongoing 03/03/2016 None hypertension Blood Pressure Values not checking blood pressure at home 03/03/2016 None hypertension Alleviating Factors medication 03/03/2016 None hypertension Pertinent Findings Denies dizziness 03/03/2016 None hypertension Pertinent Findings Denies dyspnea 03/03/2016 None hypertension Pertinent Findings Denies edema 03/03/2016 None rash Location-Major on the hands 01/14/2016 None rash Location-Major on the legs 01/14/2016 None rash Color red 2015 None rash Onset and Resolution gradual in onset 01/14/2016 None rash Onset of Symptom 6 months ago 01/14/2016 None rash Pertinent Findings itching 01/14/2016 None anxiety Quality intermittent 01/14/2016 None anxiety Onset and Resolution sudden in onset 01/14/2016 None anxiety Onset of Symptom 6 months ago 01/14/2016 None anxiety Frequency of Episodes daily 01/14/2016 None anxiety Triggers crowds and public places 01/14/2016 None anxiety Triggers activity 01/14/2016 None Hospital Follow Up Quality improving 12/03/2015 None Hospital Follow Up Onset of Symptom 2 weeks ago 12/03/2015 None Hospital Follow Up _ Other: gastroenteritis 12/03/2015 None Hospital Follow Up Pertinent Findings Denies pain 12/03/2015 None hypertension Onset and Resolution ongoing 10/10/2015 None hypertension Blood Pressure Values not checking blood pressure at home 10/10/2015 None hypertension Alleviating Factors medication 10/10/2015 None hypertension Pertinent Findings Denies dizziness 10/10/2015 None hypertension Pertinent Findings Denies dyspnea 10/10/2015 None shoulder pain Location on the right shoulder 10/10/2015 None shoulder pain Onset of Symptom _ years ago 10/10/2015 None shoulder pain Alleviating Factors physical therapy 10/10/2015 None shoulder pain Pertinent Findings limited range of motion 10/10/2015 None shoulder pain Pertinent Findings loss of range of motion 10/10/2015 None shoulder pain Alleviating Factors steroid injection 10/10/2015 None shoulder pain Limitation on Activities lacks strength 10/10/2015 None shoulder pain Quality constant 10/10/2015 None shoulder pain Onset and Resolution ongoing 10/10/2015 None hypertension Pertinent Findings Denies edema 10/10/2015 None weight loss Onset and Resolution ongoing 10/10/2015 None weight loss Diet is unchanged 10/10/2015 None weight loss Triggers unintentional weight loss 10/10/2015 None shoulder pain Onset of Symptom _ years ago 08/28/2015 None shoulder pain Location on the right shoulder 08/28/2015 None hypertension Alleviating Factors medication 08/28/2015 None hypertension Onset and Resolution ongoing 08/28/2015 None hypertension Blood Pressure Values not checking blood pressure at home 08/28/2015 None hypertension Pertinent Findings Denies dizziness 08/28/2015 None hypertension Pertinent Findings Denies dyspnea 08/28/2015 None shoulder pain Alleviating Factors physical therapy 08/28/2015 None shoulder pain Pertinent Findings limited range of motion 08/28/2015 None shoulder pain Pertinent Findings loss of range of motion 08/28/2015 None constipation Quality chronic 06/12/2015 None constipation Quality hard 06/12/2015 None constipation Quality blood on stools 06/12/2015 None constipation Triggers no known associated factors 06/12/2015 None constipation Onset and Resolution ongoing 06/12/2015 None constipation Onset of Symptom 1 months ago 06/12/2015 None constipation Severity moderate 06/12/2015 None constipation Frequency of Episodes daily 06/12/2015 None urinary urgency Quality constant 06/12/2015 None urinary urgency Onset and Resolution ongoing 06/12/2015 None urinary urgency Onset of Symptom 1 months ago 06/12/2015 None urinary urgency Frequency of Episodes daily 06/12/2015 None urinary frequency Quality worsening 06/12/2015 None urinary frequency Onset and Resolution ongoing 06/12/2015 None urinary frequency Onset of Symptom 1 months ago 06/12/2015 None urinary frequency Pertinent Findings bladder pain 06/12/2015 None constipation Quality chronic 05/09/2015 None constipation Quality hard 05/09/2015 None constipation Quality blood on stools 05/09/2015 None constipation Triggers no known associated factors 05/09/2015 None hemorrhoids Quality pressure 04/12/2015 IMPROVED hemorrhoids Quality sharp 04/12/2015 None hemorrhoids Onset and Resolution ongoing 04/12/2015 None hemorrhoids Onset of Symptom 6 months ago 04/12/2015 None hemorrhoids Severity mild 04/12/2015 None hemorrhoids Limitation on Activities does not limit activities 04/12/2015 None hemorrhoids Frequency of Episodes increasing 04/12/2015 None hemorrhoids Triggers change in bowel habits 04/12/2015 None hemorrhoids Pertinent Findings pain 04/12/2015 None constipation Onset of Symptom _ months ago 04/12/2015 due to pain pills- Alternates with diarrhea. Eats raw vegetables or salad and then has diarrhea. foot pain Quality numbness 04/12/2015 None foot pain Quality tingling 04/12/2015 None foot pain Quality constant 04/12/2015 None foot pain Location on the left 04/12/2015 None foot pain Location on the right 04/12/2015 None foot pain Onset of Symptom 3 weeks ago 04/12/2015 None foot pain Frequency of Episodes daily 04/12/2015 None foot pain Severity moderate 04/12/2015 None foot pain Exacerbating Factors standing 04/12/2015 None foot pain Pertinent Findings tingling 04/12/2015 None anxiety Onset of Symptom 3 months ago 04/12/2015 None anxiety Onset and Resolution sudden in onset 04/12/2015 None anxiety Quality intermittent 04/12/2015 None anxiety Length of Episodes _ hours 04/12/2015 None anxiety Timing of Episodes in the afternoon 04/12/2015 None anxiety Triggers no known associated factors 04/12/2015 None anxiety Pertinent Findings Denies dizziness 04/12/2015 None anxiety Pertinent Findings Denies lightheadedness 04/12/2015 None anxiety Pertinent Findings restlessness 04/12/2015 None anxiety Pertinent Findings tingling in extremities 04/12/2015 None hemorrhoids Onset of Symptom 6 months ago 03/12/2015 None hemorrhoids Quality pressure 03/12/2015 None hemorrhoids Quality sharp 03/12/2015 feels like something is sticking up her rectum- had a colon resection 7 years ago. Mother of rectal cancer. hemorrhoids Pertinent Findings pain 03/12/2015 Denies bleeding, pain increasing over 1 week. Alternating from constipation to diarrhea- very dark stools. Using Nupercainal. weight loss Onset of Symptom 2 months ago 03/12/2015 12 lb- unintentional. Doesnt have much of an appetite- eats a lot of fruit and vegetables- not much meat. gas and bloating Onset of Symptom 1 weeks ago 03/12/2015 None gas and bloating Location in the suprapubic area 03/12/2015 cramping- passing gas gas and bloating Pertinent Findings flatulence 03/12/2015 None gas and bloating Pertinent Findings Denies heartburn 03/12/2015 None gas and bloating Pertinent Findings Denies nausea 03/12/2015 None constipation Onset of Symptom _ months ago 03/12/2015 due to pain pills- Alternates with diarrhea. Eats raw vegetables or salad and then has diarrhea. hemorrhoids Onset and Resolution ongoing 03/12/2015 None hemorrhoids Severity mild 03/12/2015 None hemorrhoids Limitation on Activities does not limit activities 03/12/2015 None hemorrhoids Frequency of Episodes increasing 03/12/2015 None hemorrhoids Triggers change in bowel habits 03/12/2015 black stool x 1 weight loss Quality chronic 03/12/2015 None weight loss Onset and Resolution ongoing 03/12/2015 None weight loss Weight Status has lost 12 pounds in weeks 03/12/2015 None weight loss Frequency of Episodes increasing 03/12/2015 None weight loss Diet decreased intake 03/12/2015 no appetite weight loss Triggers change in diet 03/12/2015 None weight loss Triggers unintentional weight loss 03/12/2015 None weight loss Pertinent Findings Denies fever 03/12/2015 None weight loss Pertinent Findings Denies nausea 03/12/2015 None weight loss Pertinent Findings Denies vomiting 03/12/2015 None pain Location-Major in a generalized area 01/08/2015 everywhere- reports aching from head to toe. Had a pain defibrillator put in back on right side for sciatica and that helps with pain in that area pain Onset of Symptom 2 months ago 01/08/2015 Using Hydrocodone q 4 hours- doesnt wake her up at night pain Location-Extremities on the left hand 01/08/2015 None pain Location-Extremities on the right hand 01/08/2015 None fatigue Onset of Symptom _ months ago 01/08/2015 She reports that she doesnt notice a difference with B12 shots- headache Onset of Symptom _ months ago 01/08/2015 None headache Pertinent Findings decreased energy 01/08/2015 intermittent nasal congestion- yellow discharge when blows nose. Using flonase and this seems to help. pain Quality chronic 01/08/2015 None earache Location both ears 10/04/2014 None earache Onset of Symptom 1 weeks ago 10/04/2014 reports ears are hurting and itching headache Location in the left retro- orbital area 10/04/2014 None headache Location in the right retro- orbital area 10/04/2014 None headache Onset of Symptom 1 weeks ago 10/04/2014 None headache Pertinent Findings Denies blurred vision 10/04/2014 None headache Pertinent Findings facial pain 10/04/2014 reports eyes itch. Clear nasal drainage cough Onset of Symptom 1 weeks ago 10/04/2014 more of a tickle cough Pertinent Findings Denies chest discomfort 10/04/2014 None cough Pertinent Findings Denies dyspnea 10/04/2014 None ~generic Quality chronic 09/10/2014 None ~generic Onset of Symptom 6+ weeks ago 09/10/2014 None ~generic Onset and Resolution ongoing 09/10/2014 None ~generic Severity mild 09/10/2014 None ~generic Alleviating Factors rest 09/10/2014 None ~generic Alleviating Factors activity 09/10/2014 physical therapy ~generic Alleviating Factors medication 09/10/2014 None ~generic Exacerbating Factors activity 09/10/2014 None ~generic Pertinent Findings Denies fever 09/10/2014 None hypertension Pertinent Findings Denies dizziness 09/10/2014 None sinus congestion Quality fullness 08/06/2014 None sinus congestion Onset of Symptom _ months ago 08/06/2014 takes coricidin sinus med sinus congestion Pertinent Findings Denies cough 08/06/2014 None sinus congestion Pertinent Findings decreased energy level 08/06/2014 None sinus congestion Pertinent Findings Denies fever 08/06/2014 None epistaxis Location in the right nare 08/06/2014 None epistaxis Quality intermittent 08/06/2014 usually in the am epistaxis Onset of Symptom 2 months ago 08/06/2014 None epistaxis Pertinent Findings Denies fever 08/06/2014 None earache Location right ear 08/06/2014 None earache Onset of Symptom 1 months ago 08/06/2014 None ~generic Onset of Symptom 6+ weeks ago 07/12/2014 None ~generic Onset and Resolution ongoing 07/12/2014 None ~generic Exacerbating Factors activity 07/12/2014 None ~generic Pertinent Findings Denies fever 07/12/2014 None ~generic Quality chronic 07/12/2014 None ~generic Severity mild 07/12/2014 None ~generic Mechanism of injury unknown 07/12/2014 None ~generic Alleviating Factors medication 07/12/2014 None ~generic Alleviating Factors rest 07/12/2014 None ~generic Alleviating Factors activity 07/12/2014 physical therapy insomnia Onset of Symptom 2 months ago 05/16/2014 None insomnia Triggers stress 05/16/2014 None insomnia Pertinent Findings Denies dizziness 05/16/2014 None insomnia Pertinent Findings Denies dyspnea 05/16/2014 None anxiety Frequency of Episodes decreasing 05/16/2014 None anxiety Quality intermittent 05/16/2014 - she takes a 1mg xanax at 9AM, 5pm and 9PM. The medication relaxes her but she does not get to sleep. anxiety Onset and Resolution ongoing 05/16/2014 None anxiety Pertinent Findings insomnia 05/16/2014 None hypertension Blood Pressure Values patient checking blood pressure at home - did not bring in readings 04/05/2014 None hypertension Triggers stress 04/05/2014 None hypertension Onset and Resolution ongoing 04/05/2014 None hypertension Quality chronic 04/05/2014 None hypertension Pertinent Findings anxiety 04/05/2014 None hypertension Pertinent Findings Denies confusion 04/05/2014 None hypertension Alleviating Factors medication 04/05/2014 None hypertension Exacerbating Factors stress 04/05/2014 None hypertension Pertinent Findings decreased energy 04/05/2014 None hypertension Pertinent Findings Denies dyspnea 04/05/2014 None hypertension Pertinent Findings edema 04/05/2014 None palpitations Quality chronic 03/05/2014 None pain Location-Major in a generalized area 03/05/2014 joints hypertension Quality chronic 03/05/2014 None hypertension Blood Pressure Values patient checking blood pressure at home - did not bring in readings 03/05/2014 None hypertension Pertinent Findings decreased energy 03/05/2014 None hypertension Pertinent Findings Denies dizziness 03/05/2014 None hypertension Pertinent Findings Denies dyspnea 03/05/2014 None hypertension Pertinent Findings edema 03/05/2014 None depression Pertinent Findings agitation 03/05/2014 None depression Pertinent Findings anxiety 03/05/2014 None depression Pertinent Findings depressed mood 03/05/2014 None depression Pertinent Findings exhaustion 03/05/2014 None depression Pertinent Findings loss of interest in activities 03/05/2014 None depression Pertinent Findings Denies sleep disturbance 03/05/2014 None depression Pertinent Findings withdrawn 03/05/2014 None depression Quality worsening 03/05/2014 worsening with her new heart medication depression Quality chronic 03/05/2014 None depression Exacerbating Factors medication 03/05/2014 (pt states that she thinks that the new medication that Dr. Wong gave her has made her more depressed) palpitations Onset and Resolution ongoing 03/05/2014 None pain Quality recurrent 03/05/2014 None hypertension Severity mild 03/05/2014 None skin lesion Quality red 02/01/2014 None skin lesion Quality oozing 02/01/2014 None skin lesion Quality worsening 02/01/2014 None skin lesion Location finger and/or fingers of left hand 02/01/2014 index finger skin lesion Onset and Resolution ongoing 02/01/2014 None skin lesion Pertinent Findings Denies fever 02/01/2014 None skin lesion Quality raised 12/07/2013 None skin lesion Location on the right lower eyelid 12/07/2013 None skin lesion Pertinent Findings Denies vomiting 12/07/2013 None skin lesion Pertinent Findings Denies fever 12/07/2013 None skin lesion Pertinent Findings Denies ecchymotic 12/07/2013 None skin lesion Location finger and/or fingers of left hand 12/07/2013 None skin lesion Onset of Symptom _ weeks ago 12/07/2013 None skin lesion Severity mild 12/07/2013 None skin lesion Frequency of Episodes increasing 12/07/2013 None skin lesion Triggers no known associated factors 12/07/2013 None skin lesion Alleviating Factors activity 12/07/2013 scratching hypertension Quality chronic 09/25/2013 None hypertension Blood Pressure Values patient checking blood pressure at home - did not bring in readings 09/25/2013 None hypertension Pertinent Findings edema 09/25/2013 None hypertension Pertinent Findings Denies dyspnea 09/25/2013 None hypertension Pertinent Findings Denies dizziness 09/25/2013 None hypertension Pertinent Findings decreased energy 09/25/2013 None depression Pertinent Findings agitation 09/25/2013 None depression Pertinent Findings anxiety 09/25/2013 None depression Pertinent Findings depressed mood 09/25/2013 None depression Pertinent Findings exhaustion 09/25/2013 None depression Pertinent Findings loss of interest in activities 09/25/2013 None depression Pertinent Findings Denies sleep disturbance 09/25/2013 None depression Pertinent Findings withdrawn 09/25/2013 None fatigue Onset and Resolution gradual in onset 09/04/2013 states it has been worse since surg edema Quality acute None edema Quality worsening 09/04/2013 None edema Onset and Resolution gradual in onset 09/04/2013 None edema Pertinent Findings Denies limb redness 09/04/2013 None edema Pertinent Findings Denies limb pain / tenderness 09/04/2013 None edema Pertinent Findings Denies dyspnea 09/04/2013 None hypertension Quality chronic 09/04/2013 None hypertension Onset and Resolution ongoing 09/04/2013 None hypertension Frequency of Episodes unchanged 09/04/2013 None hypertension Severity not consistently severe symptoms, the symptoms fluctuate from no symptoms to anxiety and headaches 09/04/2013 None hypertension Onset of Symptom during adulthood 09/04/2013 None Weight follow up Location diffusely 05/18/2013 needs goal for TOPS back pain Location lumbar-sacral spine 05/18/2013 states she is falling due to back pain, states she missteps with her right leg back pain Quality sharp 05/18/2013 None back pain Onset and Resolution ongoing 05/18/2013 None back pain Exacerbating Factors activity 05/18/2013 None back pain Initial treatment ice 05/18/2013 None back pain Initial treatment injections 05/18/2013 do not alleviate the pain back pain Radiating down both legs 05/18/2013 to the knees back pain Severity moderate 05/18/2013 None back pain Initial treatment medication 05/18/2013 None back pain Initial treatment physical therapy 05/18/2013 did not help with pain fatigue Quality chronic 04/18/2013 None fatigue Quality worsening 04/18/2013 None fatigue Onset and Resolution ongoing 04/18/2013 None fatigue Pertinent Findings back pain 04/18/2013 None back pain Location diffusely 04/18/2013 having epidurals in [place], concerned because they didn't do mri of lower back hypertension Quality chronic 04/18/2013 None hypertension Onset and Resolution ongoing 04/18/2013 None hypertension Onset of Symptom during adulthood 04/18/2013 None hypertension Severity not consistently severe symptoms, the symptoms fluctuate from no symptoms to anxiety and headaches 04/18/2013 None hypertension Frequency of Episodes unchanged 04/18/2013 None fatigue Limitation on Activities moderately limits activities 04/18/2013 None fatigue Frequency of Episodes increasing 04/18/2013 None fatigue Triggers no known associated factors 04/18/2013 None fatigue Onset and Resolution gradual in onset 03/16/2013 None fatigue Limitation on Activities moderately limits activities 03/16/2013 None fatigue Timing of Episodes no specific time 03/16/2013 None fatigue Quality chronic 03/16/2013 None fatigue Quality worsening 03/16/2013 states doesn't want to get out of bed, not working for her son anymore because no energy skin lesion Quality enlarging 03/16/2013 None skin lesion Quality flat 03/16/2013 None skin lesion Quality non-tender 03/16/2013 None skin lesion Quality pigmented 03/16/2013 None skin lesion Onset and Resolution gradual in onset 03/16/2013 None skin lesion Location left arm 03/16/2013 by elbow rash Location-Major on the upper body 01/26/2013 None rash Location-Head/Neck on the left cheek 01/26/2013 None rash Location-Trunk on the upper chest 01/26/2013 None rash Location-Head/Neck on the left side of the neck 01/26/2013 None rash Location-Major on the back 01/26/2013 None rash Pertinent Findings pain 01/26/2013 None rash Pertinent Findings itching 01/26/2013 None rash Pertinent Findings tenderness 01/26/2013 None rash Alleviating Factors no alleviating factors 01/26/2013 None rash Triggers no known triggers 01/26/2013 None rash Color pink 2012 None finger pain Limitation on Activities does not limit activities 12/27/2012 None finger pain Location around the left index fingernail 12/27/2012 None finger pain Location around the left ring fingernail 12/27/2012 None finger pain Mechanism of injury unknown 12/27/2012 None finger pain Onset of Symptom 2 weeks ago 12/27/2012 None finger pain Quality acute 12/27/2012 None finger pain Pertinent Findings Denies numbness 12/27/2012 None finger pain Pertinent Findings redness 12/27/2012 None finger pain Pertinent Findings swelling 12/27/2012 states it itches-using equate anti-itch cream hypertension Onset and Resolution ongoing 10/11/2012 None hypertension Blood Pressure Values patient checking blood pressure at home - did not bring in readings 10/11/2012 None hypertension Quality chronic 10/11/2012 None hypertension Pertinent Findings dizziness 10/11/2012 None syncope Quality acute 10/11/2012 says she was brushing her teeth and eye sight went black, fell backwards into bathtub and hit back of head. when she came out of it and felt normal. syncope Onset and Resolution sudden in onset 10/11/2012 None syncope Onset of Symptom 5 days ago 10/11/2012 None syncope Pertinent Findings dizziness 10/11/2012 None syncope Pertinent Findings lightheadedness 10/11/2012 None syncope Pertinent Findings Denies nausea 10/11/2012 None syncope Pertinent Findings tunnel vision 10/11/2012 None syncope Pertinent Findings weakness 10/11/2012 None syncope Pertinent Findings warning signs 10/11/2012 None syncope Timing of Episodes in the morning 10/11/2012 None hyperlipidemia Onset and Resolution ongoing 10/11/2012 None hypertension Severity mild 10/11/2012 None hyperlipidemia Onset of Symptom during adulthood 10/11/2012 None hyperlipidemia Severity mild 10/11/2012 None hyperlipidemia Significant Medications fibrates 10/11/2012 None hyperlipidemia Significant Medications statin 10/11/2012 None hyperlipidemia Quality chronic 10/11/2012 None headache Onset of Symptom 2 weeks ago 09/21/2012 None headache Location on both sides 09/21/2012 None headache Quality dull 09/21/2012 None headache Onset and Resolution ongoing 09/21/2012 None headache Quality constant 09/21/2012 None headache Onset and Resolution worse during the day 09/21/2012 None headache Pertinent Findings decreased energy 09/21/2012 None headache Alleviating Factors medication 09/21/2012 tylenol fatigue Onset and Resolution ongoing 09/21/2012 None fatigue Timing of Episodes no specific time 09/21/2012 None fatigue Triggers no known associated factors 09/21/2012 None fatigue Exacerbating Factors exertion 09/21/2012 None fatigue Exacerbating Factors stress 09/21/2012 None fatigue Quality acute 09/21/2012 None fatigue Pertinent Findings Denies confusion 09/21/2012 None fatigue Pertinent Findings depressed mood 09/21/2012 states one day last week cried all day long fatigue Pertinent Findings Denies dizziness 09/21/2012 None sinus pain Location diffusely 08/02/2012 None sinus pain Onset of Symptom 4 days ago 08/02/2012 None sinus pain Pertinent Findings hoarseness 08/02/2012 None sinus pain Pertinent Findings facial pain 08/02/2012 None sinus pain Pertinent Findings decreased energy level 08/02/2012 None sinus pain Quality acute 08/02/2012 states she had a "bubble" inside her mouth, she pushed it and had yellow/green discharge. sinus pain Severity moderate 08/02/2012 None sinus pain Significant Medical Conditions dental infections 08/02/2012 None sinus pain Triggers meals 08/02/2012 None back pain Location in the right lower back area 06/27/2012 None back pain Onset of Symptom 3 weeks ago 06/27/2012 None back pain Location lumbar-sacral spine 06/27/2012 None back pain Quality intermittent 06/27/2012 None back pain Quality stabbing 06/27/2012 None back pain Quality worsening 06/27/2012 None back pain Quality numbness 06/27/2012 None back pain Onset and Resolution gradual in onset 06/27/2012 None back pain Limitation on Activities moderately limits activities 06/27/2012 None sciatica Location on the right 06/06/2012 None sciatica Quality burning 06/06/2012 None sciatica Quality sharp pain 06/06/2012 None sciatica Quality stabbing 06/06/2012 None sciatica Quality throbbing 06/06/2012 None sciatica Onset and Resolution gradual in onset 06/06/2012 None sciatica Onset of Symptom 2 weeks ago 06/06/2012 None sciatica Limitation on Activities moderately limits activities 06/06/2012 None sciatica Frequency of Episodes increasing 06/06/2012 None sciatica Triggers position change 06/06/2012 None sciatica Alleviating Factors rest 06/06/2012 None sciatica Exacerbating Factors standing 06/06/2012 None sciatica Exacerbating Factors position change 06/06/2012 None sciatica Pertinent Findings low back pain 06/06/2012 None sciatica Pertinent Findings osteoarthritis 06/06/2012 None sciatica Pertinent Findings Denies stiffness 06/06/2012 None sciatica Pertinent Findings Denies weight loss 06/06/2012 None sciatica Pertinent Findings weakness 06/06/2012 None back pain Location lumbar-sacral spine 06/06/2012 None back pain Location in the right lower back area 06/06/2012 None back pain Quality intermittent 06/06/2012 None back pain Quality worsening 06/06/2012 None back pain Quality numbness 06/06/2012 None back pain Quality stabbing 06/06/2012 None back pain Onset and Resolution gradual in onset 06/06/2012 None back pain Onset of Symptom 2 weeks ago 06/06/2012 None back pain Limitation on Activities moderately limits activities 06/06/2012 None shoulder pain Location on the right shoulder 06/06/2012 None shoulder pain Location scapular border, right shoulder 06/06/2012 None shoulder pain Onset and Resolution gradual in onset 06/06/2012 None shoulder pain Onset and Resolution ongoing 06/06/2012 None shoulder pain Quality stable 06/06/2012 None shoulder pain Quality worsening 06/06/2012 None shoulder pain Limitation on Activities moderately limits activities 06/06/2012 None shoulder pain Limitation on Activities lacks strength 06/06/2012 None shoulder pain Mechanism of injury unknown 06/06/2012 None shoulder pain Pertinent Findings Denies cough 06/06/2012 None shoulder pain Pertinent Findings limited range of motion 06/06/2012 None shoulder pain Pertinent Findings Denies point tenderness 06/06/2012 None arm pain Location right arm 05/16/2012 None arm pain Onset of Symptom 2 weeks ago 05/16/2012 None arm pain Quality tingling 05/16/2012 None arm pain Onset and Resolution worsening 05/16/2012 None arm pain Timing of Episodes random 05/16/2012 None arm pain Severity moderate 05/16/2012 None arm pain Extent of Symptoms tingling of right upper extremity 05/16/2012 None arm pain Frequency of Episodes unchanged 05/16/2012 None arm pain Mechanism of injury unknown 05/16/2012 None edema Onset of Symptom 2 weeks ago 02/29/2012 None edema Quality painful 02/29/2012 None edema Quality acute None edema Onset and Resolution gradual in onset 02/29/2012 None edema Location on the right ankle 02/29/2012 None edema Location on the left ankle 02/29/2012 None edema Pertinent Findings dark urine 02/29/2012 None edema Alleviating Factors rest 02/29/2012 after being in bed at night ankles are better edema Limitation on Activities does not limit activities 02/29/2012 None edema Frequency of Episodes decreasing 02/29/2012 None fatigue Onset and Resolution ongoing 02/08/2012 None fatigue Limitation on Activities moderately limits activities 02/08/2012 states goes to bed at 8pm and doesn't get up to 9 am fatigue Timing of Episodes no specific time 02/08/2012 None fatigue Triggers no known associated factors 02/08/2012 None fatigue Exacerbating Factors exertion 02/08/2012 None fatigue Exacerbating Factors stress 02/08/2012 None fatigue Quality acute 02/08/2012 None fatigue Pertinent Findings Denies confusion 02/08/2012 None fatigue Pertinent Findings depressed mood 02/08/2012 states one day last week cried all day long fatigue Pertinent Findings Denies dizziness 02/08/2012 None fatigue Pertinent Findings Denies edema 02/08/2012 None fatigue Pertinent Findings Denies insomnia 02/08/2012 None skin lesion Quality erythematous 02/08/2012 None skin lesion Onset and Resolution sudden in onset 02/08/2012 None skin lesion Triggers no known associated factors 02/08/2012 None skin lesion Alleviating Factors no alleviating factors 02/08/2012 None skin lesion Location left lower leg 02/08/2012 lost toenail 1 week ago skin lesion Onset of Symptom 2 weeks ago 02/08/2012 None fatigue Onset and Resolution ongoing 02/01/2012 None fatigue Limitation on Activities moderately limits activities 02/01/2012 states goes to bed at 8pm and doesn't get up to 9 am fatigue Pertinent Findings depressed mood 02/01/2012 states one day last week cried all day long skin lesion Location left lower leg 02/01/2012 great toe has been red and inflamed skin lesion Length of Episodes 1 weeks 02/01/2012 None fatigue Timing of Episodes no specific time 02/01/2012 None fatigue Triggers no known associated factors 02/01/2012 None fatigue Exacerbating Factors exertion 02/01/2012 None fatigue Exacerbating Factors stress 02/01/2012 None fatigue Quality acute 02/01/2012 None fatigue Pertinent Findings Denies confusion 02/01/2012 None fatigue Pertinent Findings Denies dizziness 02/01/2012 None fatigue Pertinent Findings Denies edema 02/01/2012 None fatigue Pertinent Findings Denies insomnia 02/01/2012 None skin lesion Quality acute 02/01/2012 None skin lesion Quality erythematous 02/01/2012 None skin lesion Quality oozing 02/01/2012 None skin lesion Onset and Resolution sudden in onset 02/01/2012 None skin lesion Onset of Symptom 1 weeks ago 02/01/2012 None skin lesion Triggers no known associated factors 02/01/2012 None skin lesion Alleviating Factors no alleviating factors 02/01/2012 None oral lesion Location on the mobile tongue 01/22/2012 None oral lesion Location on the lower lip 01/22/2012 None oral lesion Location on the upper lip 01/22/2012 None oral lesion Quality flat 01/22/2012 None oral lesion Quality ulcerated 01/22/2012 None oral lesion Onset and Resolution ongoing 01/22/2012 None oral lesion Onset of Symptom 1 weeks ago 01/22/2012 States she has an ulcer on her tongue and left lower lip. oral lesion Limitation on Activities does not limit oral intake 01/22/2012 None oral lesion Frequency of Episodes increasing 01/22/2012 None oral lesion Triggers no known associated factors 01/22/2012 None sinus congestion Onset and Resolution sudden in onset 10/19/2011 None sinus congestion Onset of Symptom 3 days ago 10/19/2011 None sinus congestion Pertinent Findings cough 10/19/2011 None sinus congestion Pertinent Findings hoarseness 10/19/2011 None cough Location in the throat 10/19/2011 None cough Quality hacking 10/19/2011 None cough Onset of Symptom 3 days ago 10/19/2011 having scope of knee on Wednesday sinus congestion Severity moderate 10/19/2011 None sinus congestion Frequency of Episodes increasing 10/19/2011 None sinus congestion Timing of Episodes all day long 10/19/2011 None sinus congestion Triggers no known associated factors 10/19/2011 None cough Onset and Resolution ongoing 10/19/2011 None cough Limitation on Activities does not limit activities 10/19/2011 None cough Frequency of Episodes increasing 10/19/2011 None cough Triggers ill contacts 10/19/2011 -states her grandkids have been sick. cough Alleviating Factors OTC medications 10/19/2011 -took coricidin hbp well woman exam (65+ years) Pap Smear last normal performed on 200609/09/2011 None well woman exam (65+ years) Pap Smear normal results 09/09/2011 None well woman exam (65+ years) Lifestyle abnormal amount of stress 09/09/2011 None well woman exam (65+ years) Menstrual History menopause at age 20s 09/09/2011 had a hysterectomy in 1970 or 1971. States she had her tubes and ovaries removed as well. well woman exam (65+ years) Obstetrical History 5 total pregnancies 09/09/2011 None well woman exam (65+ years) Obstetrical History 4 full term 09/09/2011 None well woman exam (65+ years) Obstetrical History 1 spontaneous 09/09/2011 -misscarriage less than 12 weeks along. 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 Brito is doing a total knee on October 20-he told her it was "bone on bone" knee pain Onset of Symptom 3 months ago 09/09/2011 after falling the pain became worse. knee pain Frequency of Episodes increasing 09/09/2011 None knee pain Severity moderate 09/09/2011 None knee pain Significant Medical Conditions degenerative joint disease 09/09/2011 None knee pain Quality worsening 08/13/2011 None knee pain Significant Medications NSAID' s 08/13/2011 None knee pain Severity moderate 08/13/2011 None knee pain Significant Medical Conditions degenerative joint disease 08/13/2011 None earache Location right ear 08/13/2011 None earache Quality throbbing 08/13/2011 None knee pain Quality sharp pain 08/13/2011 left knee, moves from the knee down the leg earache Onset and Resolution ongoing 08/13/2011 None earache Severity moderate 08/13/2011 None earache Triggers no known triggers 08/13/2011 None knee pain Onset and Resolution sudden in onset 08/13/2011 None knee pain Pertinent Findings pain with movement 08/13/2011 None knee pain Pertinent Findings swelling 08/13/2011 None knee pain Pertinent Findings warmth 08/13/2011 None knee pain Quality tenderness 08/13/2011 None knee pain Quality throbbing 08/13/2011 None edema Location on the left ankle 07/02/2011 None edema Location on the right ankle 07/02/2011 None edema Onset of Symptom 1 weeks ago 07/02/2011 None back pain Location in the left lower back area 07/02/2011 None knee pain Quality tenderness 07/02/2011 None knee pain Quality throbbing 07/02/2011 None knee pain Quality worsening 07/02/2011 None knee pain Severity moderate 07/02/2011 None knee pain Significant Medications NSAID' s 07/02/2011 None knee pain Quality sharp pain 06/24/2011 None knee pain Onset and Resolution sudden in onset 06/24/2011 None knee pain Pertinent Findings swelling 06/24/2011 None knee pain Pertinent Findings warmth 06/24/2011 None knee pain Pertinent Findings pain with movement 06/24/2011 None knee pain Onset of Symptom 4 days ago 06/24/2011 None knee pain Severity severe 06/24/2011 -unable to bear weight on her left leg. oral lesion Location on the lower lip 04/16/2011 None oral lesion Onset and Resolution ongoing 04/16/2011 states they got better on medicine but broke out with another one on inside of lip oral lesion Onset of Symptom 2-3 months ago 04/16/2011 None oral lesion Limitation on Activities does not limit oral intake 04/16/2011 None oral lesion Significant Medical Conditions allergic rhinitis 04/16/2011 None oral lesion Alleviating Factors medication 04/16/2011 acyclovir helps but the lesions have never completely resolved. nasal allergies Location in both nares 04/16/2011 None nasal allergies Onset and Resolution ongoing 04/16/2011 None nasal allergies Severity moderate 04/16/2011 None nasal allergies Frequency of Episodes daily 04/16/2011 None nasal allergies Significant Medical Conditions allergic rhinitis 04/16/2011 None nasal allergies Triggers season change 04/16/2011 None nasal allergies Exacerbating Factors allergen exposure 04/16/2011 None nasal allergies Pertinent Findings cough 04/16/2011 None nasal allergies Pertinent Findings nasal itching 04/16/2011 None Advance Directives No Advance Directive data Encounters Encounter Performer Location Codes Date ([id number]) [id number] EST. PATIENT, LEVEL I Diagnosis: Essential (primary) hypertension[ICD10: I10] Rachael Newby MD, [facility] CPT-4: 37579 09/09/[id number]) 06817 EST. PATIENT, LEVEL III Diagnosis: Essential (primary) hypertension[ICD10: I10] Diagnosis: Chronic pain syndrome[ICD10: G89.4] [facility] CPT-4: 65334 09/03/[id number]) [id number] EST. PATIENT, LEVEL III Diagnosis: Other idiopathic peripheral autonomic neuropathy[ICD10: G90.09] Diagnosis: Vitamin B12 deficiency anemia due to intrinsic factor deficiency[ ICD10: D51.0] Diagnosis: Major depressive disorder, recurrent, moderate[ICD10: F33.1] Diagnosis: Encounter for immunization[ICD10: Z23] Rachael Newby MD, [facility] CPT-4: [id number] 05/27/2017 ([id number]) 60560 EST. PATIENT, LEVEL IV Diagnosis: Vitamin B12 deficiency anemia, unspecified[ICD10: D51.9] Diagnosis: Essential (primary) hypertension[ICD10: I10] Diagnosis: Chronic pain syndrome[ICD10: G89.4] Diagnosis: Major depressive disorder, recurrent, moderate[ICD10: F33.1] Diagnosis: Vitamin B12 deficiency anemia due to intrinsic factor deficiency[ ICD10: D51.0] Rachael Newby MD, [facility] CPT-4: 75804 04/27/2017 ([id number]) 53679 EST. PATIENT, LEVEL IV Diagnosis: Essential (primary) hypertension[ICD10: I10] Diagnosis: Other specified polyneuropathies[ICD10: G62.89] Rachael Newby MD, [facility] CPT-4: 45104 03/09/2017 ([id number]) 07774 EST. PATIENT, LEVEL III Diagnosis: Essential (primary) hypertension[ICD10: I10] Diagnosis: Chronic pain syndrome[ICD10: G89.4] Diagnosis: Dysuria[ICD10: R30.0] Diagnosis: Allergic rhinitis due to pollen[ICD10: J30.1] Rachael Newby MD, [facility] CPT-4: 50822 02/22/2017 ([id number]) 22718 EST. PATIENT, LEVEL IV Diagnosis: Dysuria[ICD10: R30.0] Diagnosis: Urinary tract infection, site not specified[ICD10: N39.0] Diagnosis: Chronic pain syndrome[ICD10: G89.4] Rachael Newby MD, [facility] CPT-4: 78833 12/24/2016 ([id number]) 16941 EST. PATIENT, LEVEL III Diagnosis: Allergic urticaria[ICD10: L50.0] Jillian Newby MD, [facility] CPT-4: 08834 10/06/2016 ([id number]) 58415 EST. PATIENT, LEVEL IV Diagnosis: Essential (primary) hypertension[ICD10: I10] Diagnosis: Generalized anxiety disorder[ICD10: F41.1] Rachael Newby MD, [facility] CPT-4: 46921 10/01/2016 ([id number]) 61233 EST. PATIENT, LEVEL III Diagnosis: Displaced fracture of fifth metatarsal bone, left foot, initial encounter for closed fracture[ICD10: S92.352A] Diagnosis: Essential (primary) hypertension[ICD10: I10] Rachael Newby MD, [facility] CPT-4: 61548 09/01/2016 ([id number]) 11061 EST. PATIENT, LEVEL IV Diagnosis: Essential (primary) hypertension[ICD10: I10] Diagnosis: Chronic pain syndrome[ICD10: G89.4] Diagnosis: Vitamin B12 deficiency anemia, unspecified[ICD10: D51.9] Diagnosis: Vitamin D deficiency, unspecified[ICD10: E55.9] Diagnosis: Anemia, unspecified[ICD10: D64.9] Jillian Newby MD, [facility] CPT-4: 20035 08/11/2016 ([id number]) 63766 EST. PATIENT, LEVEL III Diagnosis: Chronic pain syndrome[ICD10: G89.4] Diagnosis: Rash and other nonspecific skin eruption[ICD10: R21] Rachael Newby MD, [facility] CPT-4: 23718 07/01/2016 ([id number]) 84870 EST. PATIENT, LEVEL IV Diagnosis: Vitamin B12 deficiency anemia, unspecified[ICD10: D51.9] Diagnosis: Anemia, unspecified[ICD10: D64.9] Diagnosis: Essential (primary) hypertension[ICD10: I10] Rachael Newby MD, [facility] CPT-4: 83999 04/23/2016 ([id number]) 23468 EST. PATIENT, LEVEL III Diagnosis: Essential (primary) hypertension[ICD10: I10] Diagnosis: Dysuria[ICD10: R30.0] Diagnosis: Chronic pain syndrome[ICD10: G89.4] Rachael Newby MD, [facility] CPT-4: 25413 03/03/2016 ([id number]) 35016 EST. PATIENT, LEVEL III Diagnosis: Generalized anxiety disorder[ICD10: F41.1] Diagnosis: Other specified dermatitis[ICD10: L30.8] Rachael Newby MD, [facility] CPT-4: 66067 01/14/2016 [id number] EST. PATIENT, LEVEL III Diagnosis: Encounter for follow-up examination after completed treatment for conditions other than malignant neoplasm[ICD10: Z09] Diagnosis: Family history of malignant neoplasm of digestive organs[ICD10: Z80.0 ] Diagnosis: Vitamin B12 deficiency anemia, unspecified[ICD10: D51.9] Brina Newby MD, [facility] CPT-4: 82543 12/03/2015 ([id number]) 92790 EST. PATIENT, LEVEL IV Diagnosis: Essential (primary) hypertension[ICD10: I10] Diagnosis: Anemia, unspecified[ICD10: D64.9] Diagnosis: Mixed hyperlipidemia[ICD10: E78.2] Diagnosis: Gastro-esophageal reflux disease without esophagitis[ICD10: K21.9] Rachael Newby MD, [facility] CPT-4: 63357 10/10/2015 ([id number]) 76670 EST. PATIENT, LEVEL IV Diagnosis: Essential (primary) hypertension[ICD10: I10] Diagnosis: Generalized anxiety disorder[ICD10: F41.1] Diagnosis: Pain in right shoulder[ICD10: M25.511] Rachael Newby MD, [facility] CPT-4: 20445 08/28/2015 ([id number]) 79027 EST. PATIENT, LEVEL IV Diagnosis: Other constipation[ICD10: K59.09] Diagnosis: Chronic pain syndrome[ICD10: G89.4] Diagnosis: Essential (primary) hypertension[ICD10: I10] Diagnosis: Frequency of micturition[ICD10: R35.0] Rachael Newby MD, [facility] CPT-4: 70839 06/12/2015 ([id number]) 63033 EST. PATIENT, LEVEL IV Diagnosis: OTHER CONSTIPATION[ICD9: 564.09] Diagnosis: ESSENTIAL HYPERTENSION[ICD9: 401.9] Rachael Newby MD, [facility] CPT-4: 72925 05/09/2015 ([id number]) 84653 EST. PATIENT, LEVEL IV Diagnosis: Abdominal pain[ICD9: 789.00] Diagnosis: Vitamin D deficiency[ICD9: 268.9] Diagnosis: Vitamin B 12 deficiency[ICD9: 266.2] Diagnosis: Peripheral neuropathy[ICD9: 356.9] Diagnosis: ESSENTIAL HYPERTENSION[ICD9: 401.9] Diagnosis: Anxiety, generalized[ICD9: 300.02] Rachael Newby MD, [facility] CPT-4: 23623 04/12/2015 ([id number]) 05047 EST. PATIENT, LEVEL IV Diagnosis: Hemorrhoids[ICD9: 455.6] Diagnosis: Blood in stool[ICD9: 578.1] Diagnosis: Weight loss[ICD9: 783.21] Diagnosis: ESSENTIAL HYPERTENSION[ICD9: 401.9] Jillian Newby MD, [facility] CPT-4: 28766 03/12/2015 ([id number]) 08188 EST. PATIENT, LEVEL IV Diagnosis: Heart murmur[ICD9: 785.2] Diagnosis: Aortic regurgitation[ICD9: 424.1] Diagnosis: ESSENTIAL HYPERTENSION[ICD9: 401.9] Diagnosis: CHRONIC PAIN SYNDROME[ICD9: 338.4] Diagnosis: Fatigue[ICD9: 780.79] Diagnosis: MYALGIA AND MYOSITIS[ICD9: 729.1] Diagnosis: Vitamin B 12 deficiency[ICD9: 266.2] Rachael Newby MD, [facility] CPT-4: 00591 01/08/2015 ([id number]) 79968 EST. PATIENT, LEVEL III Diagnosis: ACUTE URI[ICD9: 465.9] Diagnosis: Vitamin B 12 deficiency[ICD9: 266.2] Rachael Newby MD [facility] CPT-4: 77740 10/04/2014 ([id number]) 17429 EST. PATIENT, LEVEL IV Diagnosis: ESSENTIAL HYPERTENSION[ICD9: 401.9] Diagnosis: Vitamin B 12 deficiency[ICD9: 266.2] Diagnosis: Esophageal reflux[ICD9: 530.81] Rachael Newby MD, [facility] CPT- 4: 26133 09/10/2014 ([id number]) 09413 EST. PATIENT, LEVEL III Diagnosis: ESSENTIAL HYPERTENSION[ICD9: 401.9] Diagnosis: ACUTE URI[ICD9: 465.9] Rachael Newby MD [facility] CPT-4: 06454 08/06/2014 ([id number]) 58435 EST. PATIENT, LEVEL III Diagnosis: Vitamin B 12 deficiency[ICD9: 266.2] Diagnosis: CHRONIC PAIN SYNDROME[ICD9: 338.4] Diagnosis: ESSENTIAL HYPERTENSION[ICD9: 401.9] Rachael Newby MD, [facility] CPT-4: 85585 07/12/2014 ([id number]) 35812 EST. PATIENT, LEVEL IV Diagnosis: Anxiety, generalized[ICD9: 300.02] Diagnosis: Insomnia[ICD9: 780.52] Diagnosis: VACCIN FOR INFLUENZA[ICD10: Z23] Diagnosis: Vitamin B 12 deficiency[ICD9: 266.2] Rachael Newby MD, [facility] CPT-4: 96126 05/16/2014 ([id number]) 47868 EST. PATIENT, LEVEL III Diagnosis: ESSENTIAL HYPERTENSION[ICD9: 401.9] Diagnosis: Vitamin B 12 deficiency[ICD9: 266.2] Diagnosis: Insomnia[ICD9: 780.52] Rachael Newby MD [facility] CPT-4: 81129 04/05/2014 ([id number]) 86584 EST. PATIENT, LEVEL IV Diagnosis: ESSENTIAL HYPERTENSION[ICD9: 401.9] Diagnosis: DEPRESSIVE DISORDER NEC[ICD9: 311] Diagnosis: MYALGIA AND MYOSITIS[ICD9: 729.1] Rachael Newby MD, [facility] CPT-4: 64006 03/05/2014 ([id number]) 74830 EST. PATIENT, LEVEL III Diagnosis: Dyshidrotic eczema[ICD9: 705.81] Diagnosis: B-COMPLEX DEFIC NEC[ICD9: 266.2] Jillian Newby MD, [facility] CPT-4: 25829 02/01/2014 ([id number]) 81556 EST. PATIENT, LEVEL III Diagnosis: Rash[ICD9: 782.1] Diagnosis: ESSENTIAL HYPERTENSION[SNOMED: 28617272] Jillian Newby MD, [facility] CPT-4: 51463 12/07/2013 ([id number]) 82936 EST. PATIENT, LEVEL IV Diagnosis: ESSENTIAL HYPERTENSION[SNOMED: 36778449] Diagnosis: MYALGIA AND MYOSITIS[ICD9: 729.1] Diagnosis: DEPRESSIVE DISORDER NEC[ICD9: 311] Diagnosis: Dietary counseling[ICD9: V65.3] Rachael Newby MD, [facility] CPT- 4: 53582 09/25/2013 ([id number]) 80063 EST. PATIENT, LEVEL IV Diagnosis: ESSENTIAL HYPERTENSION[SNOMED: 11113250] Diagnosis: DEPRESSIVE DISORDER NEC[ICD9: 311] Diagnosis: Fatigue[ICD9: 780.79] Rachael Newby MD, [facility] CPT-4: 71125 09/04/2013 ([id number]) 52711 EST. PATIENT, LEVEL III Diagnosis: Back pain[ICD9: 724.5] Rachael Newby MD, [facility] CPT-4: 18919 05/18/2013 ([id number]) 58832 EST. PATIENT, LEVEL III Diagnosis: ESSENTIAL HYPERTENSION[SNOMED: 72231326] Diagnosis: Sacroiliitis[ICD9: 720.2] Diagnosis: Sleep apnea[ICD9: 780.57] Rachael Newby MD, [facility] CPT-4: 29348 04/18/2013 ([id number]) 67791 EST. PATIENT, LEVEL IV Diagnosis: ESSENTIAL HYPERTENSION[SNOMED: 47640358] Diagnosis: Fatigue[ICD9: 780.79] Diagnosis: Snoring disorder[ICD9: 786.09] Rachael Newby MD, [facility] CPT- 4: 45177 03/16/2013 ([id number]) 89944 EST. PATIENT, LEVEL III Diagnosis: CELLULITIS OF NECK[ICD9: 682.1] Diagnosis: CELLULITIS OF TRUNK[ICD9: 682.2] Rachael Newby MD, [facility] CPT-4: 84562 01/26/2013 ([id number]) 24622 EST. PATIENT, LEVEL III Diagnosis: ESSENTIAL HYPERTENSION[SNOMED: 56273833] Diagnosis: CELLULITIS, FINGER[ICD9: 681.00] Diagnosis: ENCNTR LONG-RX USE NEC[ICD9: V58.69] Diagnosis: Vitamin B 12 deficiency[ICD9: 266.2] Diagnosis: JOINT PAIN-HAND[ICD9: 719.44] Jillian Newby MD, [facility] CPT-4: 29669 12/27/2012 ([id number]) 61668 EST. PATIENT, LEVEL IV Diagnosis: ESSENTIAL HYPERTENSION[SNOMED: 69523087] Diagnosis: HYPERLIPIDEMIA[ICD9: 272.4] Diagnosis: MYALGIA AND MYOSITIS[ICD9: 729.1] Rachael Newby MD [facility] CPT-4: 34772 10/11/2012 ([id number]) 57856 EST. PATIENT, LEVEL IV Diagnosis: ESSENTIAL HYPERTENSION[SNOMED: 52000268] Diagnosis: Anxiety, generalized[ICD9: 300.02] Diagnosis: Fatigue[ICD9: 780.79] Diagnosis: Depression[ICD9: 311] Rachael Newby MD [facility] CPT-4: 39809 09/21/2012 ([id number]) 04115 EST. PATIENT, LEVEL III Diagnosis: Dental abscess[ICD9: 522.5] Diagnosis: ACUTE MAXILLARY SINUSITIS[ICD9: 461.0] Rachael Newby MD [facility] CPT-4: 05453 08/02/2012 ([id number]) 38233 EST. PATIENT, LEVEL III Diagnosis: SACROILIITIS NEC[ICD9: 720.2] Diagnosis: CHRONIC PAIN SYNDROME[ICD9: 338.4] Rachael Newby MD [facility] CPT-4: 44496 06/27/2012 ([id number]) 06538 EST. PATIENT, LEVEL IV Diagnosis: ESSENTIAL HYPERTENSION[SNOMED: 15885453] Diagnosis: Tennis elbow[ICD9: 726.32] Diagnosis: Neck pain on right side[ICD9: 723.1] Rachael Newby MD [facility] CPT-4: 43172 06/06/2012 ([id number]) 68086 EST. PATIENT, LEVEL IV Diagnosis: Esophageal reflux[ICD9: 530.81] Diagnosis: Cervicalgia[ICD9: 723.1] Diagnosis: Medial epicondylitis[ICD9: 726.31] Jillian Newby MD [facility] CPT-4: 28093 05/16/2012 ([id number]) 93594 EST. PATIENT, LEVEL IV Diagnosis: EDEMA[ICD9: 782.3] Diagnosis: Chronic pain disorder[ICD9: 338.4] Diagnosis: DEPRESSIVE DISORDER NEC[ICD9: 311] Diagnosis: MALAISE AND FATIGUE[ICD9: 780.79] Rachael Newby MD, [facility] CPT-4: 15990 02/29/2012 ([id number]) 63873 EST. PATIENT, LEVEL IV Diagnosis: ANEMIA[ICD9: 285.9] Diagnosis: Fatigue[ICD9: 780.79] Rachael Newby MD, [facility] CPT-4: 58426 02/08/2012 ([id number]) 37616 EST. PATIENT, LEVEL IV Diagnosis: Acute renal failure[ICD9: 584.9] Diagnosis: Fatigue[ICD9: 780.79] Diagnosis: Myalgia[ICD9: 729.1] Rachael Newby MD, [facility] CPT-4: 43875 02/01/2012 ([id number]) 28131 EST. PATIENT, LEVEL III Diagnosis: Oral aphthae[ICD9: 528.2] Diagnosis: Fatigue[ICD9: 780.79] Diagnosis: History of iron deficiency anemia[ICD9: V12.3] Diagnosis: HYPERLIPIDEMIA[ICD9: 272.4] Diagnosis: ESSENTIAL HYPERTENSION[SNOMED: 07079521] Jillian Newby MD, [facility] CPT-4: 28093 01/22/2012 ([id number]) 66151 EST. PATIENT, LEVEL III Diagnosis: ACUTE SINUSITIS[ICD9: 461.9] Jillian Newby MD, [facility] CPT-4: 23206 10/19/2011 ([id number]) 96314 EST. PATIENT, LEVEL III Diagnosis: ACUTE SINUSITIS[ICD9: 461.9] Diagnosis: JOINT PAIN-L/LEG[ICD9: 719.46] Rachael Newby MD, [facility] CPT- 4: 84491 08/13/2011 86309 EST. PATIENT, LEVEL III Diagnosis: JOINT PAIN-L/LEG[ICD9: 719.46] Diagnosis: Primary localized osteoarthrosis of the knee[ICD9: 715.16] Rachael Newby MD , [facility] CPT-4: 63249 07/02/2011 22490 EST. PATIENT, LEVEL III Diagnosis: Knee pain, left[ICD9: 719.46] Diagnosis: Fall from slipping[ICD9: E885.9] Jillian Newby MD, [facility] CPT-4: 68442 06/24/2011 00462 EST. PATIENT, LEVEL III Diagnosis: Aphthous ulcer[ICD9: 528.2] [facility] CPT- 4: 58956 04/16/2011 Plan of Care Planned Activity Notes Codes Status Date Patient Education: Patient Medication Summary Completed 09/09/2017 Visit Plan: Hypertension - uncontrolled - the patient's medications have been modified as documented in the visit note. The patient has been counseled to cut back on salt in diet for a no added salt diet, low fat diet, start an exercise program with low weight bearing exercises and higher aerobic activity for heart health. The patient is to check blood pressure readings as an outpatient and either fax, call, or email the readings to the office next week for practitioner to review. The pt is to call for acute concerns. restart isosorbide at 08/24 dose - monitor blood pressure at home. Chronic pain - refilled hydrocodone. 09/03/2017 Appointment: Rachael Newby WPtel: [phone] [facility] (15 min) Moderate 09/03/2017 Patient Education: Patient Medication Summary Completed 09/03/2017 Appointment: Rachael Newby WPtel: [facility] (15 min) Moderate 08/26/2017 Appointment: Rachael Newby WPtel: [facility] (15 min) Moderate 07/14/2017 Visit Plan: Peripheral neuropathy - Recommended patient to stop her gabapentin - pt to decrease as instructed. Vitamin B12 deficiency - shot today - tablet daily. Chronic Depression and anxiety - the pt has symptoms of chronic anxiety and depression that have been fairly well controlled since the last office visit. The pt has expected periods of exacerbation with abatement of the symptoms with change in situational exposure. No change in current medications. 05/27/2017 Appointment: Rachael Newby WPtel: [facility] [place] (15 min) Moderate 05/27/2017 Patient Education: Patient Medication Summary Completed 05/27/2017 Visit Plan: Hypertension - well controlled - continue with current medications, continue with no added salt diet. Pt has been encouraged to exercise daily. The pt has been advised to call the office if there are any acute concerns about change in blood pressure readings at home. Chronic Depression and anxiety - the pt has symptoms of chronic anxiety and depression that have been fairly well controlled since the last office visit, however, due to cost of her medications, she has asked to be switched to a different medication. I have recommended stopping the wellbutrin and start on cymbalta. Chronic pain syndrome - refilled hydrocodone. 04/27/2017 Visit Plan: Hypertension - well controlled - continue with current medications, continue with no added salt diet. Pt has been encouraged to exercise daily. The pt has been advised to call the office if there are any acute concerns about change in blood pressure readings at home. Chronic Depression and anxiety - the pt has symptoms of chronic anxiety and depression that have been fairly well controlled since the last office visit, however, due to cost of her medications, she has asked to be switched to a different medication. I have recommended stopping the wellbutrin and start on cymbalta. Chronic pain syndrome - refilled hydrocodone. 04/27/2017 Appointment: Injection 04/27/2017 [facility]ment[phone] (15 min) Moderate 04/27/2017 Patient Education: Patient Medication Summary Completed 04/27/2017 Appointment: Injection 04/09/2017 Patient Education: Patient Medication Summary Completed 04/09/2017 Appointment: Injection 03/23/2017 Patient Education: Patient Medication Summary Completed 03/23/2017 Appointment: Injection 03/11/2017 Patient Education: Patient Medication Summary Completed 03/11/2017 Visit Plan: Hypertension - uncontrolled - the patient's medications have been modified as documented in the visit note. The patient has been counseled to cut back on salt in diet for a no added salt diet, low fat diet, start an exercise program with low weight bearing exercises and higher aerobic activity for heart health. The patient is to check blood pressure readings as an outpatient and either fax, call, or email the readings to the office next week for practitioner to review. The pt is to call for acute concerns. Peripheral Neuropathy - increase the gabapentin to two pills at bedtime and one pill morning and noon x 1 week then increase up to two pills morning and evening and one pill at noon x 1 week then increase to two pills three times a day thereafter. 03/09/2017 Patient Education: Patient Medication Summary Completed 03/09/2017 Appointment: [phone] [facility] (15 min) Moderate 02/25/2017 Visit Plan: Hypertension - well controlled - continue with current medications, continue with no added salt diet. Pt has been encouraged to exercise daily. The pt has been advised to call the office if there are any acute concerns about change in blood pressure readings at home. Chronic Pain Syndrome - pt has chronic pain - has been maintained on current medications, has not sought out other medications, only uses PRN pain medications as directed , and understands the consequences of over-medication. Allergies - kenalog shot today 02/22/2017 Appointment: [phone] [facility] (15 min) Moderate 02/22/2017 Patient Education: Patient Medication Summary Completed 02/22/2017 Visit Plan: Medicare Exam - today we discussed the patients past history, immunizations, preventative exams/evaluations - colonoscopy, fecal occult blood testing, routine labs for renal function, glucose, cholesterol, osteoporosis evaluations, cardiovascular testing and cancer screenings. We have also discussed mental health and the signs/symptoms of depression. The patient was advised of home safety evaluations and the need to make sure that as the aging process continues, we need to be aware of different ways to make the home a safer place to reside. The patient has also been counseled that exercise is necessary - and of utmost importance as we age to help decrease fall risk and to maintain independence in the home. Today we discussed the need for the patient to create paperwork for Advanced directives as well as for the patient to provide this office with a copy of her DOPA paperwork for health care surrogate. 12/28/2016 [facility]ointment[phone] [facility] [facility] - Annual Wellness Visit 12/28/2016 Patient Education: Patient Medication Summary Completed 12/28/2016 Visit Plan: Chronic Pain Syndrome - pt has chronic pain - has been maintained on current medications, has not sought out other medications , only uses PRN pain medications as directed, and understands the consequences of over-medication. UTI - RX for antibiotics sent to pharmacy for acute treatment and rx to pharmacy for trimethoprim for daily use after antibiotics are finished. 12/24/2016 Appointment: Rachael Newby WPtel: [facility] (15 min) Moderate 12/24/2016 Patient Education: Patient Medication Summary Completed 12/24/2016 Appointment: Brina Cazares WPtel: [facility] [facility] - Annual Wellness Visit 11/26/2016 Appointment: Injection 10/14/2016 Patient Education: Patient Medication Summary Completed 10/14/2016 Visit Plan: Hives-short course of prednisone-start claritin and pepcid as directed-call if symptoms do not resolve or if any worse. Patient verbalized understanding of plan. 10/06/2016 Appointment: Jillian Dalal WPtel: [phone] (30 min) Complex 10/06/2016 Patient Education: Patient Medication Summary Completed 10/06/2016 Visit Plan: Hypertension - well controlled - continue with current medications, continue with no added salt diet. Pt has been encouraged to exercise daily. The pt has been advised to call the office if there are any acute concerns about change in blood pressure readings at home. Chronic Depression and anxiety - the pt has symptoms of chronic anxiety and depression that have been fairly well controlled since the last office visit. The pt has expected periods of exacerbation with abatement of the symptoms with change in situational exposure. No change in current medications. 10/01/2016 Appointment: Rachael Newby WPtel: [facility] (15 min) Moderate 10/01/2016 Patient Education: Patient Medication Summary Completed 10/01/2016 Appointment: Injection 09/16/2016 Patient Education: Patient Medication Summary Completed 09/16/2016 Referral: Yandel Hernandez Patient informed. Referral info faxed. Completed 07/2017 Visit Plan: Rx fifth metatarsal - continue to wear boot - repeat imaging in a few weeks Hypertension - well controlled - continue with current medications, continue with no added salt diet. Pt has been encouraged to exercise daily. The pt has been advised to call the office if there are any acute concerns about change in blood pressure readings at home. 09/01/2016 Appointment: [facility] New[phone] [facility] (15 min) Moderate 09/01/2016 Patient Education: Patient Medication Summary Completed 09/01/2016 Care Plan: Referral Order SNOMED-CT : 464963885 Pending 09/01/2016 Visit Plan: Hypertension - well controlled - continue with current medications, continue with no added salt diet. Pt has been encouraged to exercise daily. The pt has been advised to call the office if there are any acute concerns about change in blood pressure readings at home. Chronic Pain Syndrome - pt has chronic pain - has been maintained on current medications, has not sought out other medications, only uses PRN pain medications as directed , and understands the consequences of over-medication. Anemia/B12 and iron deficiency-injection today in the office-check labs -patient is on oral iron- may need IV iron Vitamin D deficiency-check level Aortic regurg-diastolic dysfuction-ef 50% in 2010-needs echo and cardiology follow up-will schedule with Dr Palacio 08/11/2016 Appointment: [facility] Dalal [facility]el[phone] [phone] (15 min) Moderate 08/11/2016 Patient Education: Patient Medication Summary Completed 08/11/2016 Care Plan: Referral Order SNOMED-CT : [id number] Pending 08/11/2016 Visit Plan: Chronic Pain Syndrome - pt has chronic pain - has been maintained on current medications, has not sought out other medications , only uses PRN pain medications as directed, and understands the consequences of over-medication. RX for Efudex to be used on hands until lesions healed 07/01/2016 Appointment: [facility] New[phone] (15 min) Moderate 07/01/2016 Patient Education: Patient Medication Summary Completed 07/01/2016 Appointment: Lab Draw 05/27/2016 Patient Education: Patient Medication Summary Completed 05/27/2016 Visit Plan: Hypertension - well controlled - continue with current medications, continue with no added salt diet. Pt has been encouraged to exercise daily. The pt has been advised to call the office if there are any acute concerns about change in blood pressure readings at home. Anemia - check labs - continue with iron orally. 04/23/2016 Appointment: Rachael Newby WPtel: [facility] (15 min) Moderate 04/23/2016 Patient Education: Patient Medication Summary Completed 04/23/2016 Appointment: Nurse Visit 03/13/2016 Patient Education: Patient Medication Summary Completed 03/13/2016 Visit Plan: Hypertension - well controlled - continue with current medications, continue with no added salt diet. Pt has been encouraged to exercise daily. The pt has been advised to call the office if there are any acute concerns about change in blood pressure readings at home. Chronic Pain Syndrome - pt has chronic pain - has been maintained on current medications, has not sought out other medications, only uses PRN pain medications as directed , and understands the consequences of over-medication. 03/03/2016 Patient Education: Patient Medication Summary Completed 03/03/2016 Appointment: Rachael Newby WPtel: [facility] (15 min) Moderate 02/17/2016 Visit Plan: Rash - Rx for betamethasone for the rash on left lateral lower leg and right hand on dorsum over digits #3/4. Anxiety - uncontrolled - RX for buspar. 01/14/2016 Patient Education: Patient Medication Summary Completed 01/14/2016 Appointment: Rachael Newby WPtel: [facility] [place] (15 min) Moderate 01/13/2016 Visit Plan: Hospital follow up - This was a follow up appointment from the patient's hospitalization during which time Dr. Newby formulated the assessment and plan for the follow up on this patient's medical condition. Pt states that her brother was recently diagnosed with liver cancer and states that his oncologist said that it was hereditary and that she should be tested. Spoke with Dr. Newby, will refer to oncology for appropriate testing. 12/03/2015 Appointment: Jillian Dalal WPtel: [phone] [place] (15 min) Moderate 12/03/2015 Patient Education: Patient Medication Summary Completed 12/03/2015 Care Plan: Comp Metabolic Cancelled 12/03/2015 Care Plan: Magnesium Cancelled 12/03/2015 Visit Plan: Hypertension - controlled per patient report - continue with current medications, continue with no added salt diet. Pt has been encouraged to exercise daily. The pt has been advised to call the office if there are any acute concerns about change in blood pressure readings at home. Esophageal Reflux - the patient has been counseled against excessive intake of caffeine, spicy foods, peppermint, and cinnamon - all of which can exacerbate esophageal reflux. The patient is to take medications as prescribed and call the office if the symptoms are not improving. Chronic Pain Syndrome - pt has chronic pain - has been maintained on current medications, has not sought out other medications, only uses PRN pain medications as directed, and understands the consequences of over-medication. 10/10/2015 Appointment: Rachael Newby WPtel: [phone] [facility] (15 min) Moderate 10/10/2015 Patient Education: Patient Medication Summary Completed 10/10/2015 Patient Education: Hypertension Completed 10/10/2015 Visit Plan: Hypertension - controlled per patient report - continue with current medications, continue with no added salt diet. Pt has been encouraged to exercise daily. The pt has been advised to call the office if there are any acute concerns about change in blood pressure readings at home. Shoulder pain - recommended pt to start physical therapy and may need to consider pt to have a second opinion on her shoulder from Dr. Paz in [place]. 08/28/2015 Patient Education: Patient Medication Summary Completed 08/28/2015 Patient Education: Hypertension Completed 08/28/2015 Appointment: Rachael Newby WPtel: [phone] [facility] (15 min) Moderate 08/07/2015 Visit Plan: Hypertension - well controlled - continue with current medications, continue with no added salt diet. Pt has been encouraged to exercise daily. The pt has been advised to call the office if there are any acute concerns about change in blood pressure readings at home. Chronic Depression and anxiety - the pt has symptoms of chronic anxiety and depression that have been fairly well controlled since the last office visit. The pt has expected periods of exacerbation with abatement of the symptoms with change in situational exposure. No change in current medications. Dysuria - recommended pt to drink cranberry juice daily. Chronic pain - refill pain medication. 06/12/2015 Appointment: Rachael Newby WPtel: [phone] [facility] (15 min) Moderate 06/12/2015 Patient Education: Patient Medication Summary Completed 06/12/2015 Patient Education: Hypertension Completed 06/12/2015 Visit Plan: Hypertension - well controlled - continue with current medications, continue with no added salt diet. Pt has been encouraged to exercise daily. The pt has been advised to call the office if there are any acute concerns about change in blood pressure readings at home. Constipation - uncontrolled - I have discussed with the patient the need for adequate fiber and water intake to facilitate soft, easily passed stools. The pt noted understanding of our conversation. I have given the patient a recipe for "power pudding" - equal parts, bran flakes, prune juice, and apple sauce. The pt is to call if symptoms not improved on this regimen. 05/09/2015 Appointment: [facility] New[facility]el[phone] [facility] (15 min) Moderate 05/09/2015 Patient Education: Patient Medication Summary Completed 05/09/2015 Patient Education: Hypertension Completed 05/09/2015 Visit Plan: Hypertension - well controlled - continue with current medications, continue with no added salt diet. Pt has been encouraged to exercise daily. The pt has been advised to call the office if there are any acute concerns about change in blood pressure readings at home. Anxiety- uncontrolled-schedule xanax at 2pm-take a full tab to see if that helps your afternoon anxiety-call if symptoms uncontrolled. Abd pain-schedule Ct scan Peripheral neuropathy-B12 deficiency-check labs today-give B12 injection today in the office Vitamin D deficiency-check level today 04/12/2015 Appointment: (15 min) Moderate 04/12/2015 Patient Education: Patient Medication Summary Completed 04/12/2015 Patient Education: Hypertension Completed 04/12/2015 Care Plan: CT ABD & PELV 1/> [facility] : 52869-4 Ordered 04/12/2015 Visit Plan: Hypertension - well controlled - continue with current medications, continue with no added salt diet. Pt has been encouraged to exercise daily. The pt has been advised to call the office if there are any acute concerns about change in blood pressure readings at home. Black stool- check stools Hemorrhoid-RX for anusol suppositories and instructed on use Weight qylu-cggzdukqtrwhu-xpzuh stools and labs-refer to Dr Riddle if indicated 03/12/2015 Appointment: (15 min) Moderate 03/12/2015 Patient Education: Patient Medication Summary Completed 03/12/2015 Patient Education: Hypertension Completed 03/12/2015 Appointment: Injection 01/22/2015 Patient Education: Patient Medication Summary Completed 01/22/2015 Visit Plan: Heart Murmur - Aortic Regurgitation - recommended pt to have repeat testing/evaluation - pt is persistently fatigued - recommended eval by cardiology - Pt has requested to see Dr. Tenorio. Hypertension - well controlled - continue with current medications, continue with no added salt diet. Pt has been encouraged to exercise daily. The pt has been advised to call the office if there are any acute concerns about change in blood pressure readings at home. Vitamin B12 deficiency - recommended pt to have shot today. Myalgia and Fatigue - recommended testing today - vitamin D, vitamin B12 level, thyroid, ESR, CRP. 01/08/2015 Appointment: Rachael Newby WPtel: [facility] Follow up 01/08/2015 Patient Education: Patient Medication Summary Completed 01/08/2015 Patient Education: Hypertension Completed 01/08/2015 Care Plan: Referral Order SNOMED-CT : [id number] Ordered 01/08/2015 Appointment: Injection 11/28/2014 Patient Education: Patient Medication Summary Completed 11/28/2014 Patient Education: Patient Medication Summary Completed 10/15/2014 Care Plan: SCREENING[facility]AMMOGRAPHYDIGITAL LOINC : 97803-8 Ordered 10/15/2014 Visit Plan: URI - Pt advised to increase fluids, vitamin C. Discussed natural and expected course of this diagnosis and need to alert me if symptoms do not follow expected course, or if any worse. RX sent to patient' s pharmacy. 10/04/2014 Appointment: Rachael Newby WPtel: [facility] [facility] 10/04/2014 Patient Education: Patient Medication Summary Completed 10/04/2014 Visit Plan: Hypertension - well controlled - continue with current medications, continue with no added salt diet. Pt has been encouraged to exercise daily. The pt has been advised to call the office if there are any acute concerns about change in blood pressure readings at home. Esophageal Reflux - the patient has been counseled against excessive intake of caffeine, spicy foods, peppermint, and cinnamon - all of which can exacerbate esophageal reflux. The patient is to take medications as prescribed and call the office if the symptoms are not improving. B12 deficiency - recommended pt to have shot today 09/10/2014 Appointment: Rachael Newby WPtel: [phone] Follow up 09/10/2014 Patient Education: Patient Medication Summary Completed 09/10/2014 Patient Education: Hypertension Completed 09/10/2014 Visit Plan: Hypertension - well controlled - continue with current medications, continue with no added salt diet. Pt has been encouraged to exercise daily. The pt has been advised to call the office if there are any acute concerns about change in blood pressure readings at home. URI - Pt advised to increase fluids, vitamin C. Discussed natural and expected course of this diagnosis and need to alert me if symptoms do not follow expected course, or if any worse. RX sent to patient's pharmacy. pneumovac and b12 given today 08/06/2014 Appointment: Rachael Newby WPtel: [phone] [place] [id number] [place] called and confirmed appt Follow up 08/06/2014 Patient Education: Patient Medication Summary Completed 08/06/2014 Patient Education: Hypertension Completed 08/06/2014 Visit Plan: Hypertension - well controlled - continue with current medications, continue with no added salt diet. Pt has been encouraged to exercise daily. The pt has been advised to call the office if there are any acute concerns about change in blood pressure readings at home. Chronic Pain Syndrome - pt has chronic pain - has been maintained on current medications, has not sought out other medications, only uses PRN pain medications as directed , and understands the consequences of over-medication. QZT-CCO-lejwe follow up with cardiology-patient wants to wait until after holidays-does not want to go back to Dr Wong-refer to Dr Tenorio-patient is going to call us when she gets home. 07/12/2014 Appointment: Sick 07/12/2014 Patient Education: Patient Medication Summary Completed 07/12/2014 Patient Education: Hypertension Completed 07/12/2014 Patient Education: Patient Medication Summary Completed 06/28/2014 Appointment: Rachael Newby WPtel: [phone] [facility] [place] Injection 06/14/2014 Patient Education: Patient Medication Summary Completed 06/14/2014 Appointment: [facility]achael Newby WPtel: [phone] [place] Injection 05/31/2014 Patient Education: Patient Medication Summary Completed 05/31/2014 Appointment: Rachael Newby WPtel: [phone] [place] Injection 05/23/2014 Visit Plan: Anxiety - the patient has uncontrolled anxiety and will benefit from additional help with sleep - and keep krzysztof an SNRI on a daily basis to attempt control of the symptoms of anxiety (tachycardia, overwhelming sensations, stress, insomnia, etc). I also believe that the patient will benefit from very low dose of prn benzodiazepine. Pt is aware of the risks and benefits of treatment with the above medications. Insomnia - Pt has been advised to increase the light in the house during the day, and start dimming the lights during the evening hours. Pt has been advised to cut out caffeine after 5pm. Daytime napping worsens night time insomnia. 05/16/2014 Appointment: Rachael Newby WPtel: [phone] Follow up 05/16/2014 Patient Education: Patient Medication Summary Completed 05/16/2014 Visit Plan: Hypertension - well controlled - continue with current medications, continue with no added salt diet. Pt has been encouraged to exercise daily. The pt has been advised to call the office if there are any acute concerns about change in blood pressure readings at home. Insomnia - recommended no napping during the day - change citalopram to 40mg at bedtime, continue with buproprion in the morning. 04/05/2014 Patient Education: Patient Medication Summary Completed 04/05/2014 Patient Education: Hypertension Completed 04/05/2014 Visit Plan: Hypertension - well controlled - continue with current medications, continue with no added salt diet. Pt has been encouraged to exercise daily. The pt has been advised to call the office if there are any acute concerns about change in blood pressure readings at home. Pt was given HCTZ by Dr. Wong - however, due to her renal function she has been advised that she should not take that medication (her last GFR was 49). Depression - chronic with worsening due to financial problems as well as what pt feels is medication related - pt reports that she has been taking her bupropion, but does not feel as if it is working - I have proposed increase of the bupropion to 300mg daily. Myalgia - worsening symptoms - I have recommended a two week trial off of her statin to see if her myalgias improve. 03/05/2014 Appointment: Rachael Newby WPtel: [facility] [place] Follow up 03/05/2014 Patient Education: Patient Medication Summary Completed 03/05/2014 Patient Education: Hypertension Completed 03/05/2014 Visit Plan: Dyshidrotic eczema-RX for betamethasone cream- discussed natural and expected course of this diagnosis and to alert me if symptoms do not follow expected course, or if any worse. RX sent to patient's pharmacy. Patient verbalized understanding of plan. 02/01/2014 Appointment: Jillian Dalal WPtel: [facility]5 [phone] [place] Follow up 02/01/2014 Patient Education: Patient Medication Summary Completed 02/01/2014 Appointment: Jillian Dalal WPtel: [phone] [place] Injection 12/29/2013 Patient Education: Patient Medication Summary Completed 12/29/2013 Appointment: Rachael Newby WPtel: [phone] [place] Injection 12/27/2013 Visit Plan: Rash-RX sent to patient's pharmacy-keep hands clean and dry-call next week with update on symptoms HTN-well controlled-CAD- diastolic dysfunction-no recent cardiology follow up and significant heart murmur-recommend appointment with Dr Wong. 12/07/2013 Appointment: Jillian Dalal WPtel: [phone] [phone] rash 12/07/2013 Patient Education: Patient Medication Summary Completed 12/07/2013 Patient Education: Hypertension Completed 12/07/2013 Visit Plan: Hypertension - well controlled - continue with current medications, continue with no added salt diet. Pt has been encouraged to exercise daily. The pt has been advised to call the office if there are any acute concerns about change in blood pressure readings at home. Depression - persistent - but is better than it had been afew weeks ago. Overweight - discussed with patient - recommended pt to start exercising once she is feeling better after she holds her lipitor. Pt with myalgia - recommended to hold her lipitor x 1 week, then restart at 1/2 tablet daily as this may be causing her to have muscle aches. 09/25/2013 Appointment: Rachael Newby WPtel: [facility] Follow up 09/25/2013 Patient Education: Patient Medication Summary Completed 09/25/2013 Patient Education: .Amazing charts Diabetic meal planning guide Completed 09/25 Patient Education: Hypertension Completed 09/25/2013 Appointment: Rachael Newby WPtel: [facility] Lab Draw 09/05/2013 Visit Plan: Hypertension - well controlled - continue with current medications, continue with no added salt diet. Pt has been encouraged to exercise daily. The pt has been advised to call the office if there are any acute concerns about change in blood pressure readings at home. Depression - uncontrolled - Pt has been counseled about the diagnosis of depression, the potential causes, and risks associated with the diagnosis. The pt denies suicidal ideation, or plans. The patient has been counseled about treatment options, and understands the risks associated with treatment of depression, as well as the risks associated with NOT treating the depression. I believe the pt will benefit from medical intervention and an antidepressant has been appropriately prescribed for this patient. Fatigue - start on b12 and vitamin d 09/04/2013 Appointment: Rachael Newby WPtel: [facility] Follow up 09/04/2013 Patient Education: Patient Medication Summary Completed 09/04/2013 Patient Education: Hypertension Completed 09/04/2013 Appointment: Rachael Newby WPtel: [address] [place], [place] [id number] Follow up 08/29/2013 Visit Plan: Sacroilitis - shots in SI joints today - back exercises discussed with the patient, pt to continue with antiinflammatories. Pt is to call if the symptoms do not improve or if they worsen. 05/18/2013 Appointment: Rachael Newby WPtel: [address] [place], [place] [id number] Follow up 05/18/2013 Patient Education: Patient Medication Summary Completed 05/18/2013 Visit Plan: Hypertension - well controlled - continue with current medications, continue with no added salt diet. Pt has been encouraged to exercise daily. The pt has been advised to call the office if there are any acute concerns about change in blood pressure readings at home. Sleep apnea- patient geting CPAP-should help with fatigue Sacroilitis-toradol injection today for acute pain-recommend f/u with Dr Marin at [address] 04/18/2013 Appointment: Jillian Dalal WPtel: [address] [place], [place] [phone] Follow up 04/18/2013 Patient Education: Patient Medication Summary Completed 04/18/2013 Patient Education: Hypertension Completed 04/18/2013 Appointment: Rachael Newby WPtel: [address] [place], [place] [id number] Follow up 04/13/2013 Visit Plan: Hypertension - uncontrolled - the patient's medications have been modified as documented in the visit note. The patient has been counseled to cut back on salt in diet for a no added salt diet, low fat diet, start an exercise program with low weight bearing exercises and higher aerobic activity for heart health. The patient is to check blood pressure readings as an outpatient and either fax, call, or email the readings to the office next week for practicioner to review. The pt is to call for acute concerns. INCREASE TOPROL TO TWICE DAILY. DEPRESSION AND ANXIETY - PER PATIENT FAIRLY WELL CONTROLLED - RECOMMENDED PT TO CHANGE HER CELEXA TO NIGHTTIME DOSING. PT NEEDS TO CONSIDER IF THIS DOES NOT HELP HIS SYMPTOMS - MAY NEED TO CHAGNE HER FROM CELEXA TO LEXAPRO. SNORING AND MALAISE - FATIGUE - RECOMMENDED A SLEEP STUDY. 03/16/2013 Appointment: Rachael Newby WPtel: [facility] Follow up 03/16/2013 Patient Education: Patient Medication Summary Completed 03/16/2013 Patient Education: Hypertension Completed 03/16/2013 Appointment: Rachael Newby WPtel: [facility] Follow up 02/28/2013 Visit Plan: Cellulitis - continue with oral antibiotics as previously directed, return to clinic as previously directed, call for acute change in symptoms, worsening redness, warmth, discharge. 01/26/2013 Appointment: Rachael Newby WPtel: [facility] Other 01/26/2013 Patient Education: Patient Medication Summary Completed 01/26/2013 Patient Education: Patient Medication Summary Completed 01/23/2013 Patient Education: Hypertension Completed 01/23/2013 Visit Plan: Cellulitis-left index finger-culture today in the office - continue with oral antibiotics as previously directed, return to clinic as previously directed, call for acute change in symptoms, worsening redness, warmth, discharge. Joint pain-hands and fingers-check labs Hypertension - elevated today- The patient has been counseled to cut back on salt in diet for a no added salt diet, low fat diet, start an exercise program with low weight bearing exercises and higher aerobic activity for heart health. The patient is to check blood pressure readings as an outpatient and either fax , call, or email the readings to the office next week for practicioner to review. The pt is to call for acute concerns. 12/27/2012 Appointment: Jill[facility] Dalal WPtel: [phone] [phone] [place] rash 12/27/2012 Patient Education: Patient Medication Summary Completed 12/27/2012 Patient Education: Hypertension Completed 12/27/2012 Visit Plan: Hypertension - well controlled - continue with current medications, continue with no added salt diet. Pt has been encouraged to exercise daily. The pt has been advised to call the office if there are any acute concerns about change in blood pressure readings at home. Hyperlipidemia - pt has been counseled about appropriate diet, exercise, and need for low fat food choices. I have discussed the need for the patient to take medications as prescribed. If the patient has negative side effects from the medication, they are to CALL the office and not abruptly discontinue the medication without discussion with a practicioner in the office. We will check labs in 3-6 months for follow up on the patient's chronic medical problem and to assure normal liver response to medications. Low back pain- the patient was instructed in appropriate posture, need for weight loss to alleviate abdominal obesity that is worsening the patient's back pain.. The pt is to use prn antiinflammatories to manage acute pain. The patient is to call the office if the pain is worsening or does not improve. 10/11/2012 Appointment: Rachael Newby WPtel: [facility] [place] Follow up 10/11/2012 Patient Education: Patient Medication Summary Completed 10/11/2012 Patient Education: Hypertension Completed 10/11/2012 Appointment: Jillian Dalal WPtel: [phone] [place] Lab Draw 10/07/2012 Patient Education: Patient Medication Summary Completed 10/07/2012 Patient Education: Hypertension Completed 10/07/2012 Appointment: Rachael Newby WPtel: [facility] [place] Lab Draw 09/26/2012 Visit Plan: Hypertension - not optimally controlled, but per patient is stable - continue with current medications, continue with no added salt diet. Pt has been encouraged to exercise daily. The pt has been advised to call the office if there are any acute concerns about change in blood pressure readings at home. Depression and Anxiety - the patient has an acute flair with uncontrolled anxiety and depression due to situational social stressor and will benefit from a continuation of her buproprion on a daily basis to attempt control of the symptoms of anxiety (tachycardia, overwhelming sensations, stress, insomnia, etc). I also believe that the patient will benefit from very low dose of prn benzodiazepine. Pt is aware of the risks and benefits of treament with the above medications. Pt to have labs done fasting - tomorrow 09/21/2012 Appointment: Rachael Newby WPtel: [facility] Follow up 09/21/2012 Patient Education: Patient Medication Summary Completed 09/21/2012 Patient Education: Hypertension Completed 09/21/2012 Visit Plan: Dental abcess- Sinusitis- pt to start on clindamycin and flagyl, use sinus rinse, and see dentist [facility] 08/02/2012 Appointment: Rachael Newby WPtel: [facility] [facility] 08/02/2012 Patient Education: Patient Medication Summary Completed 08/02/2012 Visit Plan: Sacroilitis - Pt is unable to use oral antiinflammatories of the NSAID variety due to compromised renal function, therefore, until she is able to receive injections from the specialist at [facility] [address] [place] [address], she will be on a steroid taper. Back and leg pain - steroid shot today - pt to see specialist for epidural and SI joint injections [facility] 06/27/2012 Appointment: Rachael Newby WPtel: [address] [place], [place] [id number] Follow up 06/27/2012 Patient Education: Patient Medication Summary Completed 06/27/2012 Visit Plan: Hypertension - well controlled - continue with current medications, continue with no added salt diet. Pt has been encouraged to exercise daily. The pt has been advised to call the office if there are any acute concerns about change in blood pressure readings at home. Sacroilitis- exercises discussed with the patient, pt to continue with antiinflammatories. Pt is to call if the symptoms do not improve or if they worsen. tennis elbow and neck pain- recommended brace for arm, voltaren gel and neck mri due to persistant pain in [place] and neck andmupper bsck on the right. 06/06/2012 Appointment: Rachael Newby WPtel: [facility] [place] Follow up 06/06/2012 Patient Education: Patient Medication Summary Completed 06/06/2012 Patient Education: High Blood Pressure: Essential Hypertension Completed 2011 Visit Plan: Esophageal Reflux - the patient has been counseled against excessive intake of caffiene, spicy foods, peppermint, and cinnamon - all of which can exacerbate esophageal reflux. The patient is to take medications as prescribed and call the office if the symptoms are not improving. Neck pain-right arm pain-discussed natural and expected course of this diagnosis and to alert me if symptoms do not follow expected course, or if any worse. Recommend rest, anti-inflammatories as directed. Discussed brace for right arm that goes over the elbow to see if that helps with her symptoms. Patient verbalized understanding of plan. 05/16/2012 Appointment: Jillian Dalal WPtel: 1015 [facility] [place] [address] Other 05/16/2012 Patient Education: Patient Medication Summary Completed 05/16/2012 Visit Plan: Edema has improved - continue with current treatment, low sodium diet, call for any acute changes in the symptoms. Pt is planning a trip to [place] soon and I have encouraged her to use compression socks on the trip. Chronic Depression and anxiety - the pt has symptoms of chronic anxiety and depression that have been fairly well controlled since the last office visit. The pt has expected periods of exacerbation with abatement of the symptoms with change in situational exposure. No change in current medications. Fatigue has improved with the decrease in her antidepressant dose and with the holding of her blood pressure medication. 02/29/2012 Appointment: Rachael Newby WPtel: 1012 [facility] Follow up 02/29/2012 Patient Education: Patient Medication Summary Completed 02/29/2012 Visit Plan: Hyperlipidemia - pt has been counseled about appropriate diet, exercise, and need for low fat food choices. I have discussed the need for the patient to take medications as prescribed. If the patient has negative side effects from the medication, they are to CALL the office and not abruptly discontinue the medication without discussion with a practicioner in the office. We will check labs in 3-6 months for follow up on the patient's chronic medical problem and to assure normal liver response to medications.restart the lipitor Chronic Depression and anxiety - the pt has symptoms of chronic anxiety and depression that have been fairly well controlled since the last office visit. The pt has expected periods of exacerbation with abatement of the symptoms with change in situational exposure. No change in current medications.decrease the celexa to 20 mg daily b12 shot today for the peripheral neuropathy Anemia-start a vitamin at bedtime start on bcomplex supplements daily. 02/08/2012 Appointment: Rachael Newby WPtel: [facility] Follow up 02/08/2012 Patient Education: Patient Medication Summary Completed 02/08/2012 Visit Plan: Paronychia - continue with oral antibiotics as previously directed, return to clinic as previously directed, call for acute change in symptoms, worsening redness, warmth, discharge. DUE TO FATIGUE- hold the lipitor, decrease the celexa to 20 mg one time at bedtime. Check kidney function. Acute renal failure - pt has had several medications held over the past 1&1/2 weeks, will check renal function. 02/01/2012 Appointment: Rachael Newby WPtel: [facility] [place] Other 02/01/2012 Patient Education: Patient Medication Summary Completed 02/01/2012 Visit Plan: Oral aphthae- Discussed natural and expected course of this diagnosis and need to alert me if symtpoms do not follow expected course, or if any worse. RX sent to patient's pharmacy. Continue acyclovir for 10 days. Fatigue-history of anemia-recent knee surgery-check labs Hyperlipidemia-check lipid panel today. Hypertension - well controlled - continue with current medications, continue with no added salt diet. Pt has been encouraged to exercise daily. The pt has been advised to call the office if there are any acute concerns about change in blood pressure readings at home. 01/22/2012 Appointment: Jillian Dalal WPtel: [phone] [place] Other 01/22/2012 Patient Education: Patient Medication Summary Completed 01/22/2012 Patient Education: High Blood Pressure: Essential Hypertension Completed 2011 Visit Plan: Sinusitis - Pt has acute infection - pain in face, maxillary region, Pt informed to use decongestant, RX given to patient, sinus rinses also recommended. Call if symptoms do not show improvement. Cough- kenalog injection today in the ofice-call if symptoms persist-recommend coricidin hbp 10/19/2011 Patient Education: Patient Medication Summary Completed 10/19/2011 Visit Plan: Well Adult Female - exam completed. Pap and gc/ chlamydia and breast exam completed. Pt will be called with results of her testing. She was advised to continue with yearly annual exams. Safe sex practices discussed during office visit today. Call if any abnormal gynecologic issues during the next year, otherwise, RTC yearly or prn. 09/09/2011 Visit Plan: Well Adult Female - exam completed. Pap and gc/ chlamydia and breast exam completed. Pt will be called with results of her testing. She was advised to continue with yearly annual exams. Safe sex practices discussed during office visit today. Call if any abnormal gynecologic issues during the next year, otherwise, RTC yearly or prn. Doctor's eval of the patient - I, Dr. Newby, personally evaluated the patient with the nurse practicioner. I have reviewed the patient's chart, I have reviewed the patient' s past medical history, problem list, medication list, and personal history. I agree with the documentation by the nurse practicioner in the HPI, physical exam , and the assessment and plan.. 09/09/2011 Appointment: [phone] [facility] 09/09/2011 Patient Education: Patient Medication Summary Completed 09/09/2011 Appointment: [phone] [place] Pap Only 09/03/2011 Visit Plan: Sinusitis - Pt has acute infection - pain in face, maxillary region, Pt informed to use decongestant, RX given to patient, sinus rinses also recommended. Call if symptoms do not show improvement. Joint Pain - continue with pain medication - pt needs to follow up with her orthopedic surgeon, may need further imaging or other interventions as determined by the specialist. 08/13/2011 Patient Education: Patient Medication Summary Completed 08/13/2011 Patient Education: Patient Medication Summary Completed 07/15/2011 Visit Plan: Pt given RX for pain medication - pt started on prednisone, and given ketorlac injection today - she is to call on wednesday to let dr know how she feels lesion on nose, recommended appt with guido for removal. 07/02/2011 Appointment: Rachael Newby WPtel: [facility] Other 07/02/2011 Patient Education: Patient Medication Summary Completed 07/02/2011 Visit Plan: Left knee pain from fall-discussed natural and expected course of this diagnosis and to alert me if symptoms do not follow expected course. Advised pateint to get an xray at the hospital today. Toradol injection given today for acute pain. Okay to continue hydrocodone for pain as well. Recommend follow up with Dr. Block. Call if symptoms do not improve or worsen. DR. NEWBY DISCUSSED THE CASE WITH THE NURSE PRACTICIONER. CARLIN HAS BEEN INSTRUCTED TO CALL THE OFFICE FOR ANY ACUTE CHANGE IN HER SYMPTOMS OR ACUTE WORSENING OF PAIN. PT TO HAVE IMAGING DONE AT THE HOSPITAL. THIS OFFICE IS TO CALL DR. BLOCK'S OFFICE FOR ANY OBVIOUS ABNORMALITY ON THE XRAY. 06/24/2011 Visit Plan: Left knee pain from fall-discussed natural and expected course of this diagnosis and to alert me if symptoms do not follow expected course. Advised pateint to get an xray at the hospital today. Toradol injection given today for acute pain. Okay to continue hydrocodone for pain as well. Recommend follow up with Dr. Block. Call if symptoms do not improve or worsen. 06/24/2011 Appointment: Jillian Dalal WPtel: [phone] [place] Other 06/24/2011 Patient Education: Patient Medication Summary Completed 06/24/2011 Visit Plan: Apthous ulcer-take the acyclovir as directed. QID x 7 days, then bid x 1 month. Pt advised to stop eating acidic foods, stop drinking pop, start on a multivitamin. 04/16/2011 Appointment: Rachael Newby WPtel: [address] [place], [place] [id number] Other 04/16/2011 Patient Education: Patient Medication Summary Completed 04/16/2011 Referral: Yandel Hernandez Referral Appointment Requested Referral: JonaDago galvan [facility]Ptel[phone] [facility] Referral Completed Instructions Comment hold LIPITOR x 1 week, then restart at 1/2 pill daily.. Hypertension - well controlled - continue with current medications, continue with no added salt diet. Pt has been encouraged to exercise daily. The pt has been advised to call the office if there are any acute concerns about change in blood pressure readings at home. Depression - persistent - but is better than it had been afew weeks ago. Overweight - discussed with patient - recommended pt to start exercising once she is feeling better after she holds her lipitor. Pt with myalgia - recommended to hold her lipitor x 1 week, then restart at 1/2 tablet daily as this may be causing her to have muscle aches. . Cellulitis - continue with oral antibiotics as previously directed, return to clinic as previously directed, call for acute change in symptoms, worsening redness, warmth, discharge. . Hypertension - well controlled - continue with current medications, continue with no added salt diet. Pt has been encouraged to exercise daily. The pt has been advised to call the office if there are any acute concerns about change in blood pressure readings at home. Chronic Pain Syndrome - pt has chronic pain - has been maintained on current medications, has not sought out other medications, only uses PRN pain medications as directed, and understands the consequences of over-medication. ZYG-MFT-wnkeu follow up with cardiology-patient wants to wait until after holidays-does not want to go back to Dr Wong-refer to Dr Tenorio-patient is going to call us when she gets home. . Sinusitis - Pt has acute infection - pain in face, maxillary region, Pt informed to use decongestant, RX given to patient, sinus rinses also recommended. Call if symptoms do not show improvement. Cough-kenalog injection today in the ofice-call if symptoms persist-recommend coricidin hbp . Hypertension - well controlled - continue with current medications, continue with no added salt diet. Pt has been encouraged to exercise daily. The pt has been advised to call the office if there are any acute concerns about change in blood pressure readings at home. Chronic Pain Syndrome - pt has chronic pain - has been maintained on current medications, has not sought out other medications, only uses PRN pain medications as directed, and understands the consequences of over-medication. . Hypertension - well controlled - continue with current medications, continue with no added salt diet. Pt has been encouraged to exercise daily. The pt has been advised to call the office if there are any acute concerns about change in blood pressure readings at home. Chronic Pain Syndrome - pt has chronic pain - has been maintained on current medications, has not sought out other medications, only uses PRN pain medications as directed, and understands the consequences of over-medication. Allergies - kenalog shot today . Hypertension - well controlled - continue with current medications, continue with no added salt diet. Pt has been encouraged to exercise daily. The pt has been advised to call the office if there are any acute concerns about change in blood pressure readings at home. Sacroilitis- exercises discussed with the patient, pt to continue with antiinflammatories. Pt is to call if the symptoms do not improve or if they worsen. tennis elbow and neck pain- recommended brace for arm, voltaren gel and neck mri due to persistant pain in [place] and neck andmupper bsck on the right. increase the gabapentin to two pills at bedtime and one pill morning and noon x 1 week then increase up to two pills morning and evening and one pill at noon x 1 week then increase to two pills three times a day thereafter. . Hypertension - uncontrolled - the patient's medications have been modified as documented in the visit note. The patient has been counseled to cut back on salt in diet for a no added salt diet, low fat diet, start an exercise program with low weight bearing exercises and higher aerobic activity for heart health. The patient is to check blood pressure readings as an outpatient and either fax , call, or email the readings to the office next week for practitioner to review. The pt is to call for acute concerns. Peripheral Neuropathy - increase the gabapentin to two pills at bedtime and one pill morning and noon x 1 week then increase up to two pills morning and evening and one pill at noon x 1 week then increase to two pills three times a day thereafter. OCCULT STOOLS . Hypertension - well controlled - continue with current medications, continue with no added salt diet. Pt has been encouraged to exercise daily. The pt has been advised to call the office if there are any acute concerns about change in blood pressure readings at home. Black stool-check stools Hemorrhoid-RX for anusol suppositories and instructed on use Weight tegv-hrtbznmdkjgve-jwuzp stools and labs-refer to Dr Riddle if indicated Cosmo Paz MD - Orthopedic surgeon in [facility] - consider this for possible surgery if needed. . Hypertension - controlled per patient report - continue with current medications, continue with no added salt diet. Pt has been encouraged to exercise daily. The pt has been advised to call the office if there are any acute concerns about change in blood pressure readings at home. Shoulder pain - recommended pt to start physical therapy and may need to consider pt to have a second opinion on her shoulder from Dr. Paz in [place]. . Paronychia - continue with oral antibiotics as previously directed, return to clinic as previously directed, call for acute change in symptoms, worsening redness, warmth, discharge. DUE TO FATIGUE- hold the lipitor, decrease the celexa to 20 mg one time at bedtime. Check kidney function. Acute renal failure - pt has had several medications held over the past 1&1/2 weeks, will check renal function. . Sacroilitis - Pt is unable to use oral antiinflammatories of the NSAID variety due to compromised renal function, therefore, until she is able to receive injections from the specialist at [facility], she will be on a steroid taper. Back and leg pain - steroid shot today - pt to see specialist for epidural and SI joint injections SUSAN . Pt given RX for pain medication - pt started on prednisone, and given ketorlac injection today - she is to call on wednesday to let know how she feels lesion on nose, recommended appt with guido for removal. . Hypertension - uncontrolled - the patient's medications have been modified as documented in the visit note. The patient has been counseled to cut back on salt in diet for a no added salt diet, low fat diet, start an exercise program with low weight bearing exercises and higher aerobic activity for heart health. The patient is to check blood pressure readings as an outpatient and either fax , call, or email the readings to the office next week for practitioner to review. The pt is to call for acute concerns. restart isosorbide at 1/2 dose - monitor blood pressure at home. Chronic pain - refilled hydrocodone. start amitiza 8mg daily decrease the dose of the omeprazole to one time daily and the second dose is as needed for gi upset . Hypertension - well controlled - continue with current medications, continue with no added salt diet. Pt has been encouraged to exercise daily. The pt has been advised to call the office if there are any acute concerns about change in blood pressure readings at home. Constipation - uncontrolled - I have discussed with the patient the need for adequate fiber and water intake to facilitate soft, easily passed stools. The pt noted understanding of our conversation. I have given the patient a recipe for "power pudding" - equal parts, bran flakes, prune juice, and apple sauce. The pt is to call if symptoms not improved on this regimen. . Sacroilitis - shots in SI joints today - back exercises discussed with the patient, pt to continue with antiinflammatories. Pt is to call if the symptoms do not improve or if they worsen. . Hypertension - well controlled - continue with current medications, continue with no added salt diet. Pt has been encouraged to exercise daily. The pt has been advised to call the office if there are any acute concerns about change in blood pressure readings at home. URI - Pt advised to increase fluids, vitamin C. Discussed natural and expected course of this diagnosis and need to alert me if symptoms do not follow expected course, or if any worse. RX sent to patient's pharmacy. pneumovac and b12 given today vitamin b12 liquid daily.. Hypertension - not optimally controlled, but per patient is stable - continue with current medications, continue with no added salt diet. Pt has been encouraged to exercise daily. The pt has been advised to call the office if there are any acute concerns about change in blood pressure readings at home. Depression and Anxiety - the patient has an acute flair with uncontrolled anxiety and depression due to situational social stressor and will benefit from a continuation of her buproprion on a daily basis to attempt control of the symptoms of anxiety (tachycardia, overwhelming sensations, stress, insomnia, etc ). I also believe that the patient will benefit from very low dose of prn benzodiazepine. Pt is aware of the risks and benefits of treament with the above medications. Pt to have labs done fasting - tomorrow INCREASE TOPROL TO TWICE DAILY. CHANGE CELEXA TO NIGHT TIME DOSING. Hypertension - uncontrolled - the patient's medications have been modified as documented in the visit note. The patient has been counseled to cut back on salt in diet for a no added salt diet, low fat diet, start an exercise program with low weight bearing exercises and higher aerobic activity for heart health. The patient is to check blood pressure readings as an outpatient and either fax , call, or email the readings to the office next week for practicioner to review. The pt is to call for acute concerns. INCREASE TOPROL TO TWICE DAILY. DEPRESSION AND ANXIETY - PER PATIENT FAIRLY WELL CONTROLLED - RECOMMENDED PT TO CHANGE HER CELEXA TO NIGHTTIME DOSING. PT NEEDS TO CONSIDER IF THIS DOES NOT HELP HIS SYMPTOMS - MAY NEED TO CHAGNE HER FROM CELEXA TO LEXAPRO. SNORING AND MALAISE - FATIGUE - RECOMMENDED A SLEEP STUDY. . Rash-RX sent to patient's pharmacy-keep hands clean and dry-call next week with update on symptoms HTN-well kexgiguwdr-UHF-qpadapmcd dysfunction-no recent cardiology follow up and significant heart murmur-recommend appointment with Dr Wong. TAKE A FULL TAB ALPRAZOLAM AT 2PM TO SEE IF THAT HELPS WITH YOUR ANXIETY SCHEDULE CT ABDOMEN/PELVIS . Hypertension - well controlled - continue with current medications, continue with no added salt diet. Pt has been encouraged to exercise daily. The pt has been advised to call the office if there are any acute concerns about change in blood pressure readings at home. Sphmvds-lfxqnhoemwln-oeqpidux xanax at 2pm-take a full tab to see if that helps your afternoon anxiety-call if symptoms uncontrolled. Abd pain-schedule Ct scan Peripheral neuropathy-B12 deficiency-check labs today-give B12 injection today in the office Vitamin D deficiency-check level today . Hyperlipidemia - pt has been counseled about appropriate diet, exercise, and need for low fat food choices. I have discussed the need for the patient to take medications as prescribed. If the patient has negative side effects from the medication, they are to CALL the office and not abruptly discontinue the medication without discussion with a practicioner in the office. We will check labs in 3-6 months for follow up on the patient's chronic medical problem and to assure normal liver response to medications.restart the lipitor Chronic Depression and anxiety - the pt has symptoms of chronic anxiety and depression that have been fairly well controlled since the last office visit. The pt has expected periods of exacerbation with abatement of the symptoms with change in situational exposure. No change in current medications.decrease the celexa to 20 mg daily b12 shot today for the peripheral neuropathy Anemia-start a vitamin at bedtime start on bcomplex supplements daily. . Hypertension - controlled per patient report - continue with current medications, continue with no added salt diet. Pt has been encouraged to exercise daily. The pt has been advised to call the office if there are any acute concerns about change in blood pressure readings at home. Esophageal Reflux - the patient has been counseled against excessive intake of caffeine, spicy foods, peppermint, and cinnamon - all of which can exacerbate esophageal reflux. The patient is to take medications as prescribed and call the office if the symptoms are not improving. Chronic Pain Syndrome - pt has chronic pain - has been maintained on current medications, has not sought out other medications, only uses PRN pain medications as directed, and understands the consequences of over-medication. cbc cmp esr crp, uric acid, b12 Monitor your blood pressure at home and record. Bring in your readings to your next appointment, or as directed. Call for chest pain, shortness of breath, headaches, or other concerns.. Cellulitis-left index finger-culture today in the office - continue with oral antibiotics as previously directed, return to clinic as previously directed, call for acute change in symptoms, worsening redness, warmth, discharge. Joint pain-hands and fingers-check labs Hypertension - elevated today- The patient has been counseled to cut back on salt in diet for a no added salt diet, low fat diet, start an exercise program with low weight bearing exercises and higher aerobic activity for heart health. The patient is to check blood pressure readings as an outpatient and either fax , call, or email the readings to the office next week for practicioner to review. The pt is to call for acute concerns. . Apthous ulcer-take the acyclovir as directed. QID x 7 days, then bid x 1 month. Pt advised to stop eating acidic foods, stop drinking pop, start on a multivitamin. . Chronic Pain Syndrome - pt has chronic pain - has been maintained on current medications, has not sought out other medications, only uses PRN pain medications as directed, and understands the consequences of over- medication. RX for Efudex to be used on hands until lesions healed . Well Adult Female - exam completed. Pap and gc/ chlamydia and breast exam completed. Pt will be called with results of her testing. She was advised to continue with yearly annual exams. Safe sex practices discussed during office visit today. Call if any abnormal gynecologic issues during the next year, otherwise, RTC yearly or prn. . Well Adult Female - exam completed. Pap and gc/ chlamydia and breast exam completed. Pt will be called with results of her testing. She was advised to continue with yearly annual exams. Safe sex practices discussed during office visit today. Call if any abnormal gynecologic issues during the next year, otherwise, RTC yearly or prn. Doctor's eval of the patient - I, Dr. Newby, personally evaluated the patient with the nurse practicioner. I have reviewed the patient's chart, I have reviewed the patient's past medical history, problem list, medication list , and personal history. I agree with the documentation by the nurse practicioner in the HPI, physical exam, and the assessment and plan.. . Hypertension - well controlled - continue with current medications, continue with no added salt diet. Pt has been encouraged to exercise daily. The pt has been advised to call the office if there are any acute concerns about change in blood pressure readings at home. Insomnia - recommended no napping during the day - change citalopram to 40mg at bedtime, continue with buproprion in the morning. vitamin d 2000 units daily. vitamin b12 liquid daily fish oil 1000mg to 1200mg daily start on buproprion 150mg daily.. Hypertension - well controlled - continue with current medications, continue with no added salt diet. Pt has been encouraged to exercise daily. The pt has been advised to call the office if there are any acute concerns about change in blood pressure readings at home. Depression - uncontrolled - Pt has been counseled about the diagnosis of depression, the potential causes, and risks associated with the diagnosis. The pt denies suicidal ideation, or plans. The patient has been counseled about treatment options, and understands the risks associated with treatment of depression, as well as the risks associated with NOT treating the depression. I believe the pt will benefit from medical intervention and an antidepressant has been appropriately prescribed for this patient. Fatigue - start on b12 and vitamin d pt to increase her current supply of bupropion to 150mg two pills daily, then fill new RX sent to the pharmacy hold lipitor x 2 weeks call physician to report on pain level. . Hypertension - well controlled - continue with current medications, continue with no added salt diet. Pt has been encouraged to exercise daily. The pt has been advised to call the office if there are any acute concerns about change in blood pressure readings at home. Pt was given HCTZ by Dr. Wong - however, due to her renal function she has been advised that she should not take that medication (her last GFR was 49). Depression - chronic with worsening due to financial problems as well as what pt feels is medication related - pt reports that she has been taking her bupropion, but does not feel as if it is working - I have proposed increase of the bupropion to 300mg daily. Myalgia - worsening symptoms - I have recommended a two week trial off of her statin to see if her myalgias improve. vitamin b12 - dissolving tablet or liquid 2000mcg daily folate (folic acid) take over the counter supplement decrease gabapentin to one pill twice daily x 2 days, then one pill daily x 2 days then stop . Peripheral neuropathy - Recommended patient to stop her gabapentin - pt to decrease as instructed. Vitamin B12 deficiency - shot today - tablet daily. Chronic Depression and anxiety - the pt has symptoms of chronic anxiety and depression that have been fairly well controlled since the last office visit. The pt has expected periods of exacerbation with abatement of the symptoms with change in situational exposure. No change in current medications. . Dyshidrotic eczema-RX for betamethasone cream-discussed natural and expected course of this diagnosis and to alert me if symptoms do not follow expected course, or if any worse. RX sent to patient's pharmacy. Patient verbalized understanding of plan. . Hypertension - well controlled - continue with current medications, continue with no added salt diet. Pt has been encouraged to exercise daily. The pt has been advised to call the office if there are any acute concerns about change in blood pressure readings at home. Anemia - check labs - continue with iron orally. . Hypertension - well controlled - continue with current medications, continue with no added salt diet. Pt has been encouraged to exercise daily. The pt has been advised to call the office if there are any acute concerns about change in blood pressure readings at home. Chronic Depression and anxiety - the pt has symptoms of chronic anxiety and depression that have been fairly well controlled since the last office visit. The pt has expected periods of exacerbation with abatement of the symptoms with change in situational exposure. No change in current medications. over the counter claritin 10mg daily . Heart Murmur - Aortic Regurgitation - recommended pt to have repeat testing/ evaluation - pt is persistently fatigued - recommended eval by cardiology - Pt has requested to see Dr. Tenorio. Hypertension - well controlled - continue with current medications, continue with no added salt diet. Pt has been encouraged to exercise daily. The pt has been advised to call the office if there are any acute concerns about change in blood pressure readings at home. Vitamin B12 deficiency - recommended pt to have shot today. Myalgia and Fatigue - recommended testing today - vitamin D, vitamin B12 level, thyroid, ESR, CRP. . Left knee pain from fall-discussed natural and expected course of this diagnosis and to alert me if symptoms do not follow expected course. Advised pateint to get an xray at the hospital today. Toradol injection given today for acute pain. Okay to continue hydrocodone for pain as well. Recommend follow up with Dr. Block. Call if symptoms do not improve or worsen. DR. NEWBY DISCUSSED THE CASE WITH THE NURSE PRACTICIONER. CARLIN HAS BEEN INSTRUCTED TO CALL THE OFFICE FOR ANY ACUTE CHANGE IN HER SYMPTOMS OR ACUTE WORSENING OF PAIN. PT TO HAVE IMAGING DONE AT THE HOSPITAL. THIS OFFICE IS TO CALL DR. BLOCK'S OFFICE FOR ANY OBVIOUS ABNORMALITY ON THE XRAY. Toradol injection given today. Xray left knee at the hospital-we will call you with the results. May use ene wrap and ice as tolerated. Call if symptoms or pain worsens, or other new symptoms. . Left knee pain from fall-discussed natural and expected course of this diagnosis and to alert me if symptoms do not follow expected course. Advised pateint to get an xray at the hospital today. Toradol injection given today for acute pain. Okay to continue hydrocodone for pain as well. Recommend follow up with Dr. Block. Call if symptoms do not improve or worsen. . Hypertension - well controlled - continue with current medications, continue with no added salt diet. Pt has been encouraged to exercise daily. The pt has been advised to call the office if there are any acute concerns about change in blood pressure readings at home. Hyperlipidemia - pt has been counseled about appropriate diet, exercise, and need for low fat food choices. I have discussed the need for the patient to take medications as prescribed. If the patient has negative side effects from the medication, they are to CALL the office and not abruptly discontinue the medication without discussion with a practicioner in the office. We will check labs in 3-6 months for follow up on the patient's chronic medical problem and to assure normal liver response to medications. Low back pain- the patient was instructed in appropriate posture, need for weight loss to alleviate abdominal obesity that is worsening the patient's back pain.. The pt is to use prn antiinflammatories to manage acute pain. The patient is to call the office if the pain is worsening or does not improve. Dental abcess- Sinusitis- pt to start on clindamycin and flagyl, use sinus rinse, and see dentist SUSAN. Dental abcess- Sinusitis- pt to start on clindamycin and flagyl, use sinus rinse, and see dentist SUSAN . Hospital follow up - This was a follow up appointment from the patient's hospitalization during which time Dr. Newby formulated the assessment and plan for the follow up on this patient's medical condition. Pt states that her brother was recently diagnosed with liver cancer and states that his oncologist said that it was hereditary and that she should be tested. Spoke with Dr. Newby, will refer to oncology for appropriate testing. . Oral aphthae- Discussed natural and expected course of this diagnosis and need to alert me if symtpoms do not follow expected course, or if any worse. RX sent to patient's pharmacy. Continue acyclovir for 10 days. Fatigue-history of anemia-recent knee surgery-check labs Hyperlipidemia-check lipid panel today. Hypertension - well controlled - continue with current medications, continue with no added salt diet. Pt has been encouraged to exercise daily. The pt has been advised to call the office if there are any acute concerns about change in blood pressure readings at home. . Rash - Rx for betamethasone for the rash on left lateral lower leg and right hand on dorsum over digits #3/4. Anxiety - uncontrolled - RX for buspar. . Sinusitis - Pt has acute infection - pain in face, maxillary region, Pt informed to use decongestant, RX given to patient, sinus rinses also recommended. Call if symptoms do not show improvement. Joint Pain - continue with pain medication - pt needs to follow up with her orthopedic surgeon, may need further imaging or other interventions as determined by the specialist. take the wellbutrin every other day x 3 doses - then start the cymbalta on Wednesday. . Hypertension - well controlled - continue with current medications, continue with no added salt diet. Pt has been encouraged to exercise daily. The pt has been advised to call the office if there are any acute concerns about change in blood pressure readings at home. Chronic Depression and anxiety - the pt has symptoms of chronic anxiety and depression that have been fairly well controlled since the last office visit, however, due to cost of her medications, she has asked to be switched to a different medication. I have recommended stopping the wellbutrin and start on cymbalta. Chronic pain syndrome - refilled hydrocodone. take the wellbutrin every other day x 3 doses - then start the cymbalta on Wednesday. . Hypertension - well controlled - continue with current medications, continue with no added salt diet. Pt has been encouraged to exercise daily. The pt has been advised to call the office if there are any acute concerns about change in blood pressure readings at home. Chronic Depression and anxiety - the pt has symptoms of chronic anxiety and depression that have been fairly well controlled since the last office visit, however, due to cost of her medications, she has asked to be switched to a different medication. I have recommended stopping the wellbutrin and start on cymbalta. Chronic pain syndrome - refilled hydrocodone. cerave cream - over the counter use this in between the cream samples . Chronic Pain Syndrome - pt has chronic pain - has been maintained on current medications, has not sought out other medications, only uses PRN pain medications as directed, and understands the consequences of over-medication. UTI - RX for antibiotics sent to pharmacy for acute treatment and rx to pharmacy for trimethoprim for daily use after antibiotics are finished. start with 1/2 of a trazodone and increase up to a full pill if needed. keep the full xanax in the morning, and try to decrease to 1/2 pill around 1pm and 1/2 pill at 5or 7pm and then take the 1/2 trazodone in the evening. . Anxiety - the patient has uncontrolled anxiety and will benefit from additional help with sleep - and keep rkzysztof an SNRI on a daily basis to attempt control of the symptoms of anxiety (tachycardia, overwhelming sensations, stress , insomnia, etc). I also believe that the patient will benefit from very low dose of prn benzodiazepine. Pt is aware of the risks and benefits of treatment with the above medications. Insomnia - Pt has been advised to increase the light in the house during the day , and start dimming the lights during the evening hours. Pt has been advised to cut out caffeine after 5pm. Daytime napping worsens night time insomnia. . Rx fifth metatarsal - continue to wear boot - repeat imaging in a few weeks Hypertension - well controlled - continue with current medications, continue with no added salt diet. Pt has been encouraged to exercise daily. The pt has been advised to call the office if there are any acute concerns about change in blood pressure readings at home. . Medicare Exam - today we discussed the patients past history, immunizations, preventative exams/evaluations - colonoscopy, fecal occult blood testing, routine labs for renal function, glucose, cholesterol, osteoporosis evaluations, cardiovascular testing and cancer screenings. We have also discussed mental health and the signs/symptoms of depression. The patient was advised of home safety evaluations and the need to make sure that as the aging process continues, we need to be aware of different ways to make the home a safer place to reside. The patient has also been counseled that exercise is necessary - and of utmost importance as we age to help decrease fall risk and to maintain independence in the home. Today we discussed the need for the patient to create paperwork for Advanced directives as well as for the patient to provide this office with a copy of her [employer] paperwork for health care surrogate. . Edema has improved - continue with current treatment, low sodium diet, call for any acute changes in the symptoms. Pt is planning a trip to [place] soon and I have encouraged her to use compression socks on the trip. Chronic Depression and anxiety - the pt has symptoms of chronic anxiety and depression that have been fairly well controlled since the last office visit. The pt has expected periods of exacerbation with abatement of the symptoms with change in situational exposure. No change in current medications. Fatigue has improved with the decrease in her antidepressant dose and with the holding of her blood pressure medication. PREDNISONE X 3 DAYS CLARITIN 10MG DAILY PEPCID 20MG TWICE DAILY Hold the medication Dr Newby gave you and restart in 1 week if symptoms completely resolved . Hives-short course of prednisone-start claritin and pepcid as directed-call if symptoms do not resolve or if any worse. Patient verbalized understanding of plan. . Hypertension - well controlled - continue with current medications, continue with no added salt diet. Pt has been encouraged to exercise daily. The pt has been advised to call the office if there are any acute concerns about change in blood pressure readings at home. Sleep apnea-patient geting CPAP-should help with fatigue Sacroilitis-toradol injection today for acute pain-recommend f/u with Dr Marin at [facility] start drinking 4 ounces of cranberry juice twice daily. . Hypertension - well controlled - continue with current medications, continue with no added salt diet. Pt has been encouraged to exercise daily. The pt has been advised to call the office if there are any acute concerns about change in blood pressure readings at home. Chronic Depression and anxiety - the pt has symptoms of chronic anxiety and depression that have been fairly well controlled since the last office visit. The pt has expected periods of exacerbation with abatement of the symptoms with change in situational exposure. No change in current medications. Dysuria - recommended pt to drink cranberry juice daily. Chronic pain - refill pain medication. take omeprazole twice daily x 1 month then decrease as able to one pill daily . Hypertension - well controlled - continue with current medications, continue with no added salt diet. Pt has been encouraged to exercise daily. The pt has been advised to call the office if there are any acute concerns about change in blood pressure readings at home. Esophageal Reflux - the patient has been counseled against excessive intake of caffeine, spicy foods, peppermint, and cinnamon - all of which can exacerbate esophageal reflux. The patient is to take medications as prescribed and call the office if the symptoms are not improving. B12 deficiency - recommended pt to have shot today Appt with Dr. Riddle for EGD/Colonoscopy Aleve 500mg twice daily x 1 week, May continue for a 2nd week if tolerating okay. Use hydrocodone for breakthrough pain. . Esophageal Reflux - the patient has been counseled against excessive intake of caffiene, spicy foods, peppermint , and cinnamon - all of which can exacerbate esophageal reflux. The patient is to take medications as prescribed and call the office if the symptoms are not improving. Neck pain-right arm pain-discussed natural and expected course of this diagnosis and to alert me if symptoms do not follow expected course, or if any worse. Recommend rest, anti-inflammatories as directed. Discussed brace for right arm that goes over the elbow to see if that helps with her symptoms. Patient verbalized understanding of plan. Appt with Dr Palacio Vitamin B12 injection today check labs . Hypertension - well controlled - continue with current medications, continue with no added salt diet. Pt has been encouraged to exercise daily. The pt has been advised to call the office if there are any acute concerns about change in blood pressure readings at home. Chronic Pain Syndrome - pt has chronic pain - has been maintained on current medications, has not sought out other medications, only uses PRN pain medications as directed, and understands the consequences of over-medication. Anemia/B12 and iron deficiency-injection today in the office-check labs - patient is on oral iron-may need IV iron Vitamin D deficiency-check level Aortic regurg-diastolic dysfuction-ef 50% in 2010-needs echo and cardiology follow up-will schedule with Dr Palacio . URI - Pt advised to increase fluids, vitamin C. Discussed natural and expected course of this diagnosis and need to alert me if symptoms do not follow expected course, or if any worse. RX sent to patient's pharmacy.
--- OUTSIDE RECORDS SUMMARY | 2018-07-05 07:19 | XMS REPORT | CCD ---
Author Author Rachael Newby Organization [facility] Address [address] [place] [address] Phone Care Team Providers Care Change Management Specialist Name Role Phone Rachael Newby PP Unavailable CCM Unavailable Summary Purpose Interface Exchange Insurance Providers Payer name Policy type / Coverage type Covered democrat ID Effective Begin Date Effective End Date WPS Medicare Part B Medicare Part B [id number] 2013 Unknown [facility] Medicare Part B [id number] 2013 Unknown Family history Runs in the [...] of children Unknown 4 1 daughter in [place], 3 sons live in [facility] Employment Unknown 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 Unknown Has never used illegal drugs 04/16/2011 Allergies, Adverse Reactions, Alerts Substance Reaction Codes Entered Date Inactivated Date Status PENICILLINS hives, rash Unknown 04/16/2011 No Inactive Date Active Past Medical History Illness Codes Condition Status Onset Date Resolved Date Chronic pain syndrome ICD-9: 338.4 ICD-10: G89.4 [...] ICD-9: V16.0 ICD-10: Z80.0 Active 12/02/2015 Unknown Essential (primary) hypertension ICD-9: 401.9 ICD-10: I10 Active 03/05/2014 Unknown Gastro-esophageal reflux disease without esophagitis ICD-9: [...] Problems Condition Codes Effective Dates Condition Status Chronic pain syndrome ICD-9: 338.4 ICD-10: G89.4 [...] organs ICD-9: V16.0 ICD-10: Z80.0 12/02/2015 Active Essential (primary) hypertension ICD-9: 401.9 ICD-10: I10 03/05/2014 Active Gastro-esophageal reflux disease without esophagitis ICD-9: [...] Instructions isosorbide mononitrate 10 mg tablet RxNorm: 349646 1 Tablet(s) PO daily 09/03/2017 03/31/2018 Active pantoprazole 40 mg tablet,delayed release RxNorm: 301201 1 Tablet(s) PO BID x 1 wk then daily thereafter 09/03/2017 No Stop Date Active hydrocodone 10 mg-acetaminophen 325 mg tablet RxNorm: 141689 1 Tablet(s) PO Q4-6H as needed pain 07/09/2017 08/01/2017 Inactive alprazolam 1 mg tablet RxNorm: 981379 1 Tablet(s) PO Q8 PRN as needed TAKE 1 TABLET THREE TIMES DAILY NEEDED FOR ANXIETY. 07/01/2017 08/29/2017 Inactive omeprazole 20 mg tablet,delayed release RxNorm: 750168 1 Tablet(s) PO BID 07/01/2017 08/29/2017 Inactive omeprazole 20 mg tablet,delayed release RxNorm: 157496 1 Tablet(s) PO BID Tablet(s ) 1 Tablet(s) PO BID 06/30/20172016 Inactive hydrocodone 10 mg-acetaminophen 325 mg tablet RxNorm: 513550 1 Tablet(s) PO Q4-6H as needed pain 06/24/2017 07/08/2017 Inactive bupropion HCl XL 300 mg 24 hr tablet, extended release RxNorm: 056639 1 Tablet(s) PO daily 05/27/2017 08/19/2018 Active alprazolam 1 mg tablet RxNorm: 251878 1 Tablet(s) PO Q8 PRN as needed TAKE 1 TABLET THREE TIMES DAILY NEEDED FOR ANXIETY. 05/27/2017 06/30/2017 Inactive hydrocodone 10 mg-acetaminophen 325 mg tablet RxNorm: 690624 1 Tablet(s) PO Q4-6H as needed pain 05/27/2017 06/19/2017 Inactive cyanocobalamin (vit B-12) 1,000 mcg/mL injection solution RxNorm: 025741 1 Milliliter(s) Inj 05/27/2017 05/27/2017 Inactive cyanocobalamin (vit B-12) 1,000 mcg/mL injection solution RxNorm: 986721 1 Milliliter(s) Inj 04/27/2017 04/27/2017 Inactive hydrocodone 10 mg-acetaminophen 325 mg tablet RxNorm: 905156 1 Tablet(s) PO Q4-6H as needed pain 04/27/2017 05/26/2017 Inactive Cymbalta 60 mg capsule,delayed release RxNorm: 251074 1 Capsule(s) PO daily 04/27/2017 04/27/2017 Inactive cyanocobalamin (vit B-12) 1,000 mcg/mL injection solution RxNorm: 230705 1 Milliliter(s) Inj 04/09/2017 04/09/2017 Inactive cyanocobalamin (vit B-12) 1,000 mcg/mL injection solution RxNorm: 616196 Milliliter(s) Inj 03/23/2017 03/23/2017 Inactive alprazolam 1 mg tablet RxNorm: 311839 1 Tablet(s) PO Q8 PRN as needed TAKE 1 TABLET THREE TIMES DAILY NEEDED FOR ANXIETY. 03/17/2017 05/15/2017 Inactive cyanocobalamin (vit B-12) 1,000 mcg/mL injection solution RxNorm: 697958 Milliliter(s) Inj 03/11/2017 03/11/2017 Inactive metoprolol tartrate 50 mg tablet RxNorm: 800100 1 Tablet(s) PO BID 03/09/2017 03/03/2018 Active this replaces the 25mg RX for metoprolol tartate Metanx (algal oil) 3 mg-35 mg-2 mg-90.314 mg capsule RxNorm: 1 Capsule(s) PO BID 03/09/2017 05/17/2017 Inactive gabapentin 100 mg capsule RxNorm: 675297 2 Capsule(s) PO TID 05/31/2017 Inactive Zofran 4 mg tablet RxNorm: 978096 1 Tablet(s) PO TID as needed 02/26/2017 No Stop Date Active Kenalog 40 mg/mL suspension for injection RxNorm: 1600979 1 Milliliter(s) Inj 02/22/2017 02/22/2017 Inactive metoprolol tartrate 25 mg tablet RxNorm: 399225 1 Tablet(s) PO BID 02/22/2017 03/08/2017 Inactive 07/23/2016 10:27:52 AM trimethoprim 100 mg tablet RxNorm: 460804 1 Tablet(s) PO daily 01/02/2017 12/24/2016 Inactive Lipitor 40 mg tablet RxNorm: 693331 TAKE ONE TABLET BY MOUTH AT BEDTIME 12/25/2016 12/19/2017 Active Generic For:LIPITOR 40MG TAB refill request trimethoprim 100 mg tablet RxNorm: 657923 1 Tablet(s) PO daily 12/25/2016 06/22/2017 Inactive bupropion HCl XL 300 mg 24 hr tablet, extended release RxNorm: 824373 1 Tablet(s) PO daily 12/25/2016 04/26/2017 Inactive Bactrim DS 800 mg-160 mg tablet RxNorm: 874514 1 Tablet(s) PO BID 12/24/2016 01/02/2017 Inactive hydrocodone 10 mg-acetaminophen 325 mg tablet RxNorm: 783055 1 Tablet(s) PO Q4-6H as needed pain 12/24/2016 01/22/2017 Inactive bupropion HCl XL 300 mg 24 hr tablet, extended release RxNorm: 776663 1 Tablet(s) PO daily 12/24/2016 12/24/2016 Inactive omeprazole 20 mg tablet,delayed release RxNorm: 689501 Tablet(s) 1 Tablet(s) PO BID 11/27/2016 05/25/2017 Inactive hydrocodone 10 mg-acetaminophen 325 mg tablet RxNorm: 757445 1 Tablet(s) PO Q4-6H as needed pain 11/18/2016 12/11/2016 Inactive alprazolam 1 mg tablet RxNorm: 902832 1 Tablet(s) PO Q8 PRN as needed TAKE 1 TABLET THREE TIMES DAILY NEEDED FOR ANXIETY. 11/18/2016 02/15/2017 Inactive hydrocodone 10 mg-acetaminophen 325 mg tablet RxNorm: 376749 1 Tablet(s) PO Q4-6H as needed pain 10/19/2016 11/11/2016 Inactive cyanocobalamin (vit B-12) 1,000 mcg/mL injection solution RxNorm: 669266 1 Milliliter(s) Inj 10/14/2016 10/14/2016 Inactive prednisone 20 mg tablet RxNorm: 336048 3 Tablet(s) PO daily 10/08/2016 Inactive Metanx (algal oil) 3 mg-35 mg-2 mg-90.314 mg capsule RxNorm: 1 Capsule(s) PO BID 10/01/2016 01/28/2017 Inactive isosorbide mononitrate ER 30 mg tablet,extended release 24 hr RxNorm: 835509 1 Tablet(s) PO daily TAKE 1 TABLET BY MOUTH ONCE DAILY. 201612/23/2016 Inactive hydrocodone 10 mg-acetaminophen 325 mg tablet RxNorm: 932358 1 Tablet(s) PO Q4-6H as needed pain 09/24/2016 10/17/2016 Inactive cyanocobalamin (vit B-12) 1,000 mcg/mL injection solution RxNorm: 174377 Milliliter(s) Inj 09/16/2016 09/16/2016 Inactive alprazolam 1 mg tablet RxNorm: 685752 1 Tablet(s) PO Q8 PRN as needed TAKE 1 TABLET THREE TIMES DAILY NEEDED FOR ANXIETY. 09/01/2016 11/28/2016 Inactive hydrocodone 10 mg-acetaminophen 325 mg tablet RxNorm: 693056 1 Tablet(s) PO Q4-6H as needed pain 09/01/2016 09/23/2016 Inactive Vitamin D2 50,000 unit capsule RxNorm: 774362 1 Capsule(s) PO QW 08/14/2016 05/26/2017 Inactive Vitamin D2 50,000 unit capsule RxNorm: 410749 1 Capsule(s) PO QW 08/14/2016 08/13/2016 Inactive cyanocobalamin (vit B-12) 1,000 mcg/mL injection solution RxNorm: 768029 1 Milliliter(s) Inj 08/11/2016 08/11/2016 Inactive hydrocodone 10 mg-acetaminophen 325 mg tablet RxNorm: 756403 1 Tablet(s) PO Q4-6H as needed pain 08/07/2016 08/30/2016 Inactive metoprolol tartrate 25 mg tablet RxNorm: 954343 TAKE 1 TABLET BY MOUTH TWICE DAILY 07/23/2016 12/23/2016 Inactive 07/23/2016 10:27:52 AM gabapentin 100 mg capsule RxNorm: 195626 Capsule(s) PO TID TAKE (1) CAPSULE BY MOUTH THREE TIMES DAILY. 07/14/20162016 Inactive hydrocodone 10 mg-acetaminophen 325 mg tablet RxNorm: 066251 1 Tablet(s) PO Q4-6H as needed pain 07/09/2016 08/01/2016 Inactive fluorouracil 5 % topical cream RxNorm: 081992 1 Application TOP BID 07/01/2016 06/30/2016 Inactive fluorouracil 5 % topical cream RxNorm: 607206 1 Application TOP BID 07/01/2016 07/10/2016 Inactive alprazolam 1 mg tablet RxNorm: 612346 1 Tablet(s) PO Q8 PRN as needed TAKE 1 TABLET THREE TIMES DAILY NEEDED FOR ANXIETY. 06/22/2016 08/31/2016 Inactive ( Appended: Controlled substance eRx refill - RxReferenceNumber: [id number]) hydrocodone 10 mg-acetaminophen 325 mg tablet RxNorm: 280679 1 Tablet(s) PO Q4-6H as needed pain 06/16/2016 06/30/2016 Inactive doxycycline hyclate 100 mg capsule RxNorm: 7457384 1 Capsule(s) PO BID 05/27/2016 06/02/2016 Inactive hydrocodone 10 mg-acetaminophen 325 mg tablet RxNorm: 778986 1 Tablet(s) PO Q4-6H as needed pain 05/12/2016 06/04/2016 Inactive [SAVINGS FOR NON-COVERED DRUGS -- BIN :337330, PCN: ASPROD1, Group: XXXXX, ID# [id number], Questions: . THIS IS NOT INSURANCE.] alprazolam 1 mg tablet RxNorm: 349205 1 Tablet(s) PO Q8 PRN as needed TAKE 1 TABLET THREE TIMES DAILY NEEDED FOR ANXIETY. 05/01/2016 11/17/2016 Inactive ( Appended: Controlled substance eRx refill - RxReferenceNumber: [id number]) Flonase 50 mcg/actuation nasal spray,suspension RxNorm: 6658053 1 Vancourt NASAL BID 1 Vancourt NASAL BID 04/23/2016 04/17/2017 Inactive Flonase 50 mcg/actuation nasal spray,suspension RxNorm: 5506381 Vancourt 1 Vancourt NASAL BID 04/23/2016 04/22/2016 Inactive iron-vitamin C 100 mg-250 mg tablet RxNorm: 394609 1 Tablet(s) PO daily 04/23/2016 08/31/2016 Inactive hydrocodone 10 mg-acetaminophen 325 mg tablet RxNorm: 019041 1 Tablet(s) PO Q4-6H as needed pain 04/14/2016 05/07/2016 Inactive [SAVINGS FOR NON-COVERED DRUGS -- BIN :615832, PCN: ASPROD1, Group: XXXXX, ID# [id number], Questions: . THIS IS NOT INSURANCE.] omeprazole 20 mg tablet,delayed release RxNorm: 562276 Tablet(s) 1 Tablet(s) PO BID 03/16/2016 09/11/2016 Inactive doxycycline hyclate 100 mg tablet RxNorm: 153299 1 Tablet(s) PO BID 03/16/2016 03/15/2016 Inactive doxycycline hyclate 100 mg tablet RxNorm: 888310 1 Tablet(s) PO BID 03/16/2016 03/22/2016 Inactive isosorbide mononitrate ER 30 mg tablet,extended release 24 hr RxNorm: 245796 1 Tablet(s) PO daily TAKE 1 TABLET BY MOUTH ONCE DAILY. 201509/11/2016 Inactive Diflucan 150 mg tablet RxNorm: 136554 1 Tablet(s) PO daily 03/03/2016 Inactive Diflucan 150 mg tablet RxNorm: 734405 1 Tablet(s) PO daily 03/08/2016 Inactive lisinopril 10 mg tablet RxNorm: 401331 Tablet(s) 1 tab(s) po daily 02/11/2016 12/23/2016 Inactive bupropion HCl XL 300 mg 24 hr tablet, extended release RxNorm: 756795 1 Tablet(s) PO daily 02/05/2016 12/23/2016 Inactive hydrocodone 10 mg-acetaminophen 325 mg tablet RxNorm: 974488 1 Tablet(s) PO Q4-6H as needed pain 01/31/2016 02/23/2016 Inactive [SAVINGS FOR NON-COVERED DRUGS -- BIN :515147, PCN: ASPROD1, Group: XXXXX, ID# [id number], Questions: . THIS IS NOT INSURANCE.] alprazolam 1 mg tablet RxNorm: 805742 1 Tablet(s) PO Q8 PRN as needed TAKE 1 TABLET THREE TIMES DAILY NEEDED FOR ANXIETY. 01/21/2016 06/21/2016 Inactive ( Appended: Controlled substance eRx refill - RxReferenceNumber: [id number]) buspirone 5 mg tablet RxNorm: 323304 1 Tablet(s) PO BID 201501/20/2016 Inactive betamethasone valerate 0.1 % topical ointment RxNorm: 803224 1 TOP TID on rash of hand and leg 01/14/2016 02/12/2016 Inactive hydrocodone 10 mg-acetaminophen 325 mg tablet RxNorm: 858064 1 Tablet(s) PO Q4-6H as needed pain 12/31/2015 01/23/2016 Inactive [SAVINGS FOR NON-COVERED DRUGS -- BIN :077156, PCN: ASPROD1, Group: XXXXX, ID# [id number], Questions: . THIS IS NOT INSURANCE.] cyanocobalamin (vit B-12) 1,000 mcg/mL injection solution RxNorm: 455472 Milliliter(s) Inj 12/03/2015 12/03/2015 Inactive hydrocodone 10 mg-acetaminophen 325 mg tablet RxNorm: 238947 1 Tablet(s) PO Q4-6H as needed pain 11/20/2015 12/13/2015 Inactive [SAVINGS FOR NON-COVERED DRUGS -- BIN :186975, PCN: ASPROD1, Group: XXXXX, ID# [id number], Questions: . THIS IS NOT INSURANCE.] Lipitor 40 mg tablet RxNorm: 422969 1 Tablet(s) PO QHS TAKE 1 TABLET BY MOUTH ONCE DAILY. 10/29/2015 10/22/2016 Inactive pt to take 2 tabs of lipitor 20mg. She will call when ready to fill 40mg. hydrocodone 10 mg-acetaminophen 325 mg tablet RxNorm: 493570 1 Tablet(s) PO Q4-6H as needed pain 10/04/2015 11/19/2015 Inactive [SAVINGS FOR NON-COVERED DRUGS -- BIN :178525, PCN: ASPROD1, Group: XXXXX, ID# [id number], Questions: . THIS IS NOT INSURANCE.] alprazolam 1 mg tablet RxNorm: 373387 1 Tablet(s) PO Q8 PRN as needed TAKE 1 TABLET THREE TIMES DAILY NEEDED FOR ANXIETY. 09/25/2015 01/20/2016 Inactive ( Appended: Controlled substance eRx refill - RxReferenceNumber: [id number]) isosorbide mononitrate ER 30 mg tablet,extended release 24 hr RxNorm: 924227 1 Tablet(s) PO daily TAKE 1 TABLET BY MOUTH ONCE DAILY. 201503/15/2016 Inactive hydrocodone 10 mg-acetaminophen 325 mg tablet RxNorm: 399914 1 Tablet(s) PO Q4-6H as needed pain 07/02/2015 08/18/2015 Inactive [SAVINGS FOR NON-COVERED DRUGS -- BIN :969335, PCN: ASPROD1, Group: XXXXX, ID# [id number], Questions: . THIS IS NOT INSURANCE.] omeprazole 20 mg tablet,delayed release RxNorm: 176300 1 Tablet(s) PO BID 06/25/2015 01/20/2016 Inactive [SAVINGS FOR UNINSURED PATIENTS -- BIN:625527, PCN: ASPROD1, Group: AME08, ID# [id number], Process claim through [employer], for questions: . THIS IS NOT INSURANCE.] gabapentin 100 mg capsule RxNorm: 647243 TAKE 1 CAPSULE BY MOUTH 3 TIMES DAILY * SCHEDULED PREVENTION MEDICINE* 06/25/2015 06/18/2016 Inactive Generic For:NEURONTIN 100MG 06/25/2015 9:18:27 AM N O T I C E Last quantity doesn't match original quantity hydrocodone 10 mg-acetaminophen 325 mg tablet RxNorm: 897692 1 Tablet(s) PO Q4-6H as needed pain 06/07/2015 06/30/2015 Inactive [SAVINGS FOR NON-COVERED DRUGS -- BIN :268769, PCN: ASPROD1, Group: XXXXX, ID# [id number], Questions: . THIS IS NOT INSURANCE.] Amitiza 8 mcg capsule RxNorm: 987847 1 Capsule(s) PO daily 05/0904/22/2016 Inactive cyanocobalamin (vit B-12) 1,000 mcg/mL injection solution RxNorm: 125822 Milliliter(s) Inj 04/12/2015 04/12/2015 Inactive alprazolam 1 mg tablet RxNorm: 072820 1 Tablet(s) PO Q8 PRN as needed TAKE 1 TABLET THREE TIMES DAILY NEEDED FOR ANXIETY. 04/12/2015 09/24/2015 Inactive ( Appended: Controlled substance eRx refill - RxReferenceNumber: [id number]) hydrocodone 10 mg-acetaminophen 325 mg tablet RxNorm: 891496 1 Tablet(s) PO Q4-6H as needed pain 04/09/2015 05/01/2015 Inactive [SAVINGS FOR NON-COVERED DRUGS -- BIN :762610, PCN: ASPROD1, Group: XXXXX, ID# [id number], Questions: . THIS IS NOT INSURANCE.] hydrocodone 10 mg-acetaminophen 325 mg tablet RxNorm: 575199 1 Tablet(s) PO Q4-6H as needed pain 03/12/2015 04/04/2015 Inactive [SAVINGS FOR NON-COVERED DRUGS -- BIN :109812, PCN: ASPROD1, Group: XXXXX, ID# [id number], Questions: . THIS IS NOT INSURANCE.] Anusol-HC 25 mg suppository RxNorm: 6288302 1 Suppository RTL QHS as needed 03/12/2015 04/10/2015 Inactive hydrocodone 10 mg-acetaminophen 325 mg tablet RxNorm: 933405 1 Tablet(s) PO Q4-6H as needed pain 02/08/2015 03/03/2015 Inactive [SAVINGS FOR NON-COVERED DRUGS -- BIN :810834, PCN: ASPROD1, Group: XXXXX, ID# [id number], Questions: . THIS IS NOT INSURANCE.] cyanocobalamin (vit B-12) 1,000 mcg/mL injection solution RxNorm: 668656 Milliliter(s) Inj 01/22/2015 01/22/2015 Inactive Vitamin D2 50,000 unit capsule RxNorm: 390232 1 Capsule(s) PO QW 01/10/2015 01/09/2015 Inactive Vitamin D2 50,000 unit capsule RxNorm: 243702 1 Capsule(s) PO QW 01/10/2015 04/09/2015 Inactive [SAVINGS FOR NON-COVERED DRUGS -- BIN:592723, PCN: ASPROD1, Group: XXXXX, ID# [id number], Questions: . THIS IS NOT INSURANCE.] Flonase 50 mcg/actuation nasal spray,suspension RxNorm: 9720336 1 Vancourt NASAL BID 01/09/2015 01/03/2016 Inactive [SAVINGS FOR UNINSURED PATIENTS -- BIN:002604, PCN: ASPROD1, Group: AME08, ID# [id number], Process claim through [employer], for questions: . THIS IS NOT INSURANCE.] Kenalog 40 mg/mL suspension for injection RxNorm: 2997502 1 Milliliter(s) Inj 01/08/2015 01/08/2015 Inactive Vitamin B-12 1,000 mcg/mL injection solution RxNorm: 638563 1 Milliliter(s) Inj 01/08/2015 01/08/2015 Inactive [SAVINGS FOR NON-COVERED DRUGS -- BIN:248440, PCN: ASPROD1, Group: XXXXX, ID# [id number], Questions: . THIS IS NOT INSURANCE.] bupropion HCl XL 300 mg 24 hr tablet, extended release RxNorm: 642085 1 Tablet(s) PO daily 01/08/2015 02/01/2016 Inactive this replaces the wellbutrin sr 150mg bid dose she currently has on file metoprolol tartrate 25 mg tablet RxNorm: 912685 1 Tablet(s) PO BID 12/17/2014 12/11/2015 Inactive hydrocodone 10 mg-acetaminophen 325 mg tablet RxNorm: 265373 1 Tablet(s) PO Q4-6H as needed pain 12/05/2014 12/28/2014 Inactive [SAVINGS FOR NON-COVERED DRUGS -- BIN :720526, PCN: ASPROD1, Group: XXXXX, ID# [id number], Questions: . THIS IS NOT INSURANCE.] cyanocobalamin (vit B-12) 1,000 mcg/mL injection solution RxNorm: 724950 Milliliter(s) Inj 11/28/2014 11/28/2014 Inactive [SAVINGS FOR NON-COVERED DRUGS -- BIN:199616, PCN: ASPROD1, Group: XXXXX, ID# [id number], Questions: [phone]. THIS IS NOT INSURANCE.] lisinopril 10 mg tablet RxNorm: 450697 1 tab(s) po daily 201402/10/2016 Inactive lisinopril 10 mg tablet RxNorm: 491417 1 Tablet(s) PO daily 11/04/2014 Inactive [SAVINGS FOR NON-COVERED DRUGS -- BIN:998583, PCN: ASPROD1, Group: XXXXX, ID# [id number], Questions: . THIS IS NOT INSURANCE.] alprazolam 1 mg tablet RxNorm: 443915 1 Tablet(s) PO Q8 PRN as needed TAKE 1 TABLET THREE TIMES DAILY NEEDED FOR ANXIETY. 10/31/2014 04/11/2015 Inactive ( Appended: Controlled substance eRx refill - RxReferenceNumber: [id number]) hydrocodone 10 mg-acetaminophen 325 mg tablet RxNorm: 875754 1 Tablet(s) PO Q4-6H as needed pain 10/31/2014 11/29/2014 Inactive [SAVINGS FOR NON-COVERED DRUGS -- BIN :684531, PCN: ASPROD1, Group: XXXXX, ID# [id number], Questions: . THIS IS NOT INSURANCE.] bupropion HCl XL 300 mg 24 hr tablet, extended release RxNorm: 929444 1 Tablet(s) PO daily 10/29/2014 01/07/2015 Inactive this replaces the wellbutrin sr 150mg bid dose she currently has on file cyanocobalamin (vit B-12) 1,000 mcg/mL injection solution RxNorm: 060727 Milliliter(s) Inj 10/04/2014 10/04/2014 Inactive [SAVINGS FOR UNINSURED PATIENTS - - BIN:261818, PCN: ASPROD1, Group: AME08, ID# [id number], Process claim through [employer], for questions: . THIS IS NOT INSURANCE.] hydrocodone 10 mg-acetaminophen 325 mg tablet RxNorm: 406386 1 Tablet(s) PO Q4-6H as needed pain 10/04/2014 10/30/2014 Inactive [SAVINGS FOR UNINSURED PATIENTS -- BIN:759580, PCN: ASPROD1, Group: AME08, ID# [id number], Process claim through [employer], for questions: . THIS IS NOT INSURANCE.] Flonase 50 mcg/actuation nasal spray,suspension RxNorm: 023244 1 Vancourt NASAL BID 10/04/2014 12/02/2014 Inactive [SAVINGS FOR UNINSURED PATIENTS -- BIN:804701, PCN: ASPROD1, Group: AME08, ID# [id number], Process claim through [employer], for questions: . THIS IS NOT INSURANCE.] hydrocodone 10 mg-acetaminophen 325 mg tablet RxNorm: 947159 1 Tablet(s) PO Q4-6H as needed pain 10/04/2014 11/02/2014 Inactive [SAVINGS FOR UNINSURED PATIENTS -- BIN:698320, PCN: ASPROD1, Group: AME08, ID# [id number], Process claim through [employer], for questions: . THIS IS NOT INSURANCE.] alprazolam 1 mg tablet RxNorm: 131753 1 Tablet(s) PO Q8 PRN as needed TAKE 1 TABLET THREE TIMES DAILY NEEDED FOR ANXIETY. 09/26/2014 10/30/2014 Inactive ( Appended: Controlled substance eRx refill - RxReferenceNumber: [id number]) cyanocobalamin (vit B-12) 1,000 mcg/mL injection solution RxNorm: 995883 Milliliter(s) Inj 09/10/2014 09/10/2014 Inactive [SAVINGS FOR UNINSURED PATIENTS - - BIN:500012, PCN: ASPROD1, Group: AME08, ID# [id number], Process claim through [employer], for questions: . THIS IS NOT INSURANCE.] omeprazole 20 mg tablet,delayed release RxNorm: 325769 1 Tablet(s) PO BID 09/10/2014 04/07/2015 Inactive [SAVINGS FOR UNINSURED PATIENTS -- BIN:661601, PCN: ASPROD1, Group: AME08, ID# [id number], Process claim through [employer], for questions: . THIS IS NOT INSURANCE.] hydrocodone 10 mg-acetaminophen 325 mg tablet RxNorm: 287558 1 Tablet(s) PO Q4-6H as needed pain 09/03/2014 10/02/2014 Inactive [SAVINGS FOR UNINSURED PATIENTS -- BIN:848153, PCN: ASPROD1, Group: AME08, ID# [id number], Process claim through [employer], for questions: . THIS IS NOT INSURANCE.] cyanocobalamin (vit B-12) 1,000 mcg/mL injection solution RxNorm: 311298 Milliliter(s) Inj 08/06/2014 08/06/2014 Inactive [SAVINGS FOR UNINSURED PATIENTS - - BIN:304203, PCN: ASPROD1, Group: AME08, ID# [id number], Process claim through [employer], for questions: . THIS IS NOT INSURANCE.] prednisone 20 mg tablet RxNorm: 393911 3 Tablet(s) PO daily 08/10/2014 Inactive hydrocodone 10 mg-acetaminophen 325 mg tablet RxNorm: 575381 1 Tablet(s) PO Q4-6H as needed pain 07/12/2014 08/10/2014 Inactive [SAVINGS FOR UNINSURED PATIENTS -- BIN:720449, PCN: ASPROD1, Group: AME08, ID# [id number], Process claim through [employer], for questions: . THIS IS NOT INSURANCE.] alprazolam 1 mg tablet RxNorm: 769086 1 Tablet(s) PO Q8 PRN as needed TAKE 1 TABLET THREE TIMES DAILY NEEDED FOR ANXIETY. 07/12/2014 09/25/2014 Inactive ( Appended: Controlled substance eRx refill - RxReferenceNumber: [id number]) cyanocobalamin (vit B-12) 1,000 mcg/mL injection solution RxNorm: 699133 Milliliter(s) Inj 07/12/2014 07/12/2014 Inactive [SAVINGS FOR UNINSURED PATIENTS - - BIN:551593, PCN: ASPROD1, Group: AME08, ID# [id number], Process claim through [employer], for questions: . THIS IS NOT INSURANCE.] hydrocodone 10 mg-acetaminophen 325 mg tablet RxNorm: 278713 1 Tablet(s) PO Q4-6H as needed pain 06/28/2014 07/11/2014 Inactive [SAVINGS FOR UNINSURED PATIENTS -- BIN:557771, PCN: ASPROD1, Group: AME08, ID# [id number], Process claim through [employer], for questions: . THIS IS NOT INSURANCE.] cyanocobalamin (vit B-12) 1,000 mcg/mL injection solution RxNorm: 029832 1 Milliliter(s) Inj 06/28/2014 06/28/2014 Inactive [SAVINGS FOR UNINSURED PATIENTS - - BIN:488114, PCN: ASPROD1, Group: AME08, ID# [id number], Process claim through [employer], for questions: . THIS IS NOT INSURANCE.] cyanocobalamin (vit B-12) 1,000 mcg/mL injection solution RxNorm: 159529 Milliliter(s) Inj 06/14/2014 06/14/2014 Inactive [SAVINGS FOR UNINSURED PATIENTS - - BIN:068138, PCN: ASPROD1, Group: AME08, ID# [id number], Process claim through [employer], for questions: . THIS IS NOT INSURANCE.] cyanocobalamin (vit B-12) 1,000 mcg/mL injection solution RxNorm: 627051 Milliliter(s) Inj 05/31/2014 05/31/2014 Inactive [SAVINGS FOR UNINSURED PATIENTS - - BIN:908781, PCN: ASPROD1, Group: AME08, ID# [id number], Process claim through [employer], for questions: . THIS IS NOT INSURANCE.] cyanocobalamin (vit B-12) 1,000 mcg/mL injection solution RxNorm: 016612 Milliliter(s) Inj 05/16/2014 05/16/2014 Inactive [SAVINGS FOR UNINSURED PATIENTS - - BIN:237707, PCN: ASPROD1, Group: AME08, ID# [id number], Process claim through [employer], for questions: . THIS IS NOT INSURANCE.] trazodone 50 mg tablet RxNorm: 267532 1 Tablet(s) PO QPM 201308/05/2014 Inactive [SAVINGS FOR UNINSURED PATIENTS -- BIN:840259, PCN: ASPJOHANNA1, Group: AME08, ID # [id number], Process claim through [employer], for questions: . THIS IS NOT INSURANCE.] alprazolam 1 mg tablet RxNorm: 321518 1 Tablet(s) PO Q8 PRN as needed TAKE 1 TABLET THREE TIMES DAILY NEEDED FOR ANXIETY. 04/27/2014 07/11/2014 Inactive ( Appended: Controlled substance eRx refill - RxReferenceNumber: [id number]) cyanocobalamin (vit B-12) 1,000 mcg/mL injection solution RxNorm: 758462 1 Milliliter(s) Inj 04/05/2014 04/05/2014 Inactive [SAVINGS FOR UNINSURED PATIENTS - - BIN:[id number], PCN: [id number], Group: [id number], ID# [id number], Process claim through [employer], for questions: . THIS IS NOT INSURANCE.] gabapentin 100 mg capsule RxNorm: 005833 TAKE 1 CAPSULE BY MOUTH 3 TIMES DAILY * SCHEDULED PREVENTION MEDICINE* 03/29/2014 03/23/2015 Inactive Generic For:NEURONTIN 100MG 03/29/2014 3:08:32 PM N O T I C E Last dispense quantity was less than original quantity written hydrocodone 10 mg-acetaminophen 325 mg tablet RxNorm: 862164 1 Tablet(s) PO Q4-6H as needed pain 03/05/2014 06/27/2014 Inactive [SAVINGS FOR UNINSURED PATIENTS -- BIN:[id number], PCN: [id number], Group: [id number], ID# [id number], Process claim through [employer], for questions: . THIS IS NOT INSURANCE.] bupropion HCl XL 300 mg 24 hr tablet, extended release RxNorm: 092418 1 Tablet(s) PO daily 03/05/2014 10/28/2014 Inactive this replaces the wellbutrin sr 150mg bid dose she currently has on file cyanocobalamin (vit B-12) 1,000 mcg/mL injection solution RxNorm: 659783 Milliliter(s) Inj 02/01/2014 02/01/2014 Inactive betamethasone valerate 0.1 % topical cream RxNorm: 392603 1 Application TOP BID 02/01/2014 02/01/2014 Inactive lisinopril 10 mg tablet RxNorm: 723541 1 Tablet(s) PO daily 07/201403/02/2014 Inactive Diflucan 150 mg tablet RxNorm: 053805 1 Tablet(s) PO every other day 01/22/2014 02/04/2014 Inactive doxycycline hyclate 100 mg tablet RxNorm: 789460 1 Tablet(s) PO BID 12/29/2013 12/28/2013 Inactive cyanocobalamin (vit B-12) 1,000 mcg/mL injection solution RxNorm: 829965 Milliliter(s) Inj 12/29/2013 12/29/2013 Inactive doxycycline hyclate 100 mg tablet RxNorm: 242168 1 Tablet(s) PO BID 12/29/2013 01/04/2014 Inactive metoprolol tartrate 25 mg tablet RxNorm: 996470 1 Tablet(s) PO BID 12/14/2013 12/08/2014 Inactive trimethoprim 0.1 %-polymyxin B 10,000 unit/mL eye drops RxNorm: 118932 2 Drop(s) OPH TID right eye 12/07/2013 12/13/2013 Inactive nystatin-triamcinolone 100,000 unit/g-0.1 % topical cream RxNorm: 6238407 1 TOP BID 12/07/2013 12/16/2013 Inactive Lipitor 20 mg tablet RxNorm: 542910 1 Tablet(s) PO QHS TAKE 1 TABLET BY MOUTH ONCE DAILY. 11/30/2013 11/24/2014 Inactive Lipitor 20 mg tablet RxNorm: 236850 1 Tablet(s) PO QHS TAKE 1 TABLET BY MOUTH ONCE DAILY. 11/30/2013 11/29/2013 Inactive hydrocodone 10 mg-acetaminophen 325 mg tablet RxNorm: 611910 1 Tablet(s) PO Q6 PRN 11/24/2013 No Stop Date Active Carafate 1 gram tablet RxNorm: 591314 1 Tablet(s) PO QID TAKE 1 TABLET BY MOUTH 4 TIMES DAILY. 10/09/2013 04/22/2016 Inactive alprazolam 1 mg tablet RxNorm: 104150 1 Tablet(s) PO Q8 PRN TAKE 1 TABLET THREE TIMES DAILY NEEDED FOR ANXIETY. 10/09/2013 No Stop Date Active (Appended: Controlled substance eRx refill - RxReferenceNumber: [id number]) isosorbide mononitrate ER 30 mg tablet,extended release 24 hr RxNorm: 463846 1 Tablet(s) PO daily TAKE 1 TABLET BY MOUTH ONCE DAILY. 201304/29/2014 Inactive hydrocodone 10 mg-acetaminophen 325 mg tablet RxNorm: 469247 Tablet(s) PO 09/04/2013 No Stop Date Active bupropion HCl XL 150 mg 24 hr tablet, extended release RxNorm: 013349 1 Tablet(s) PO daily 09/04/2013 03/04/2014 Inactive this replaces the wellbutrin sr 150mg bid dose she currently has on file Lipitor 20 mg tablet RxNorm: 431331 Tablet(s) PO TAKE 1 TABLET BY MOUTH ONCE DAILY. 08/21/2013 11/29/2013 Inactive hydrocodone 5 mg-acetaminophen 325 mg tablet RxNorm: 2293236 1 Tablet(s) PO Q6 PRN 08/11/2013 No Stop Date Active Lipitor 20 mg tablet RxNorm: 849858 Tablet(s) PO TAKE 1 TABLET BY MOUTH ONCE DAILY. 08/10/2013 08/20/2013 Inactive alprazolam 1 mg tablet RxNorm: 628162 1 Tablet(s) PO Q8 PRN TAKE 1 TABLET THREE TIMES DAILY NEEDED FOR ANXIETY. 08/10/2013 No Stop Date Active (Appended: Controlled substance eRx refill - RxReferenceNumber: [id number]) Lipitor 20 mg tablet RxNorm: 591302 Tablet(s) PO TAKE 1 TABLET BY MOUTH ONCE DAILY. 07/17/2013 08/09/2013 Inactive Lipitor 20 mg tablet RxNorm: 028401 1 Tablet(s) PO QPM TAKE 1 TABLET BY MOUTH ONCE DAILY. 07/05/2013 07/16/2013 Inactive Lipitor 20 mg tablet RxNorm: 641577 Tablet(s) PO TAKE 1 TABLET BY MOUTH ONCE DAILY. 06/19/2013 07/04/2013 Inactive Carafate 1 gram tablet RxNorm: 771534 Tablet(s) PO TAKE 1 TABLET BY MOUTH 4 TIMES DAILY. 06/16/2013 10/08/2013 Inactive isosorbide mononitrate ER 30 mg tablet,extended release 24 hr RxNorm: 754177 Tablet (s) PO TAKE 1 TABLET BY MOUTH ONCE DAILY. 06/16/2013 10/01/2013 Inactive hydrocodone 10 mg-acetaminophen 325 mg tablet RxNorm: 429586 Tablet(s) PO 05/18/2013 No Stop Date Active Lipitor 20 mg tablet RxNorm: 215919 Tablet(s) PO TAKE 1 TABLET BY MOUTH ONCE DAILY. 04/27/2013 06/18/2013 Inactive ketorolac 60 mg/2 mL IM RxNorm: 009467 1 Milliliter(s) IM 04/1804/18/2013 Inactive hydrocodone 10 mg-acetaminophen 325 mg tablet RxNorm: 1019538 Tablet(s) PO 04/10/2013 No Stop Date Active hydrocodone 5 mg-acetaminophen 325 mg tablet RxNorm: 0004124 1 Tablet(s) PO Q6 PRN 04/10/2013 No Stop Date Active alprazolam 1 mg tablet RxNorm: 060807 1 Tablet(s) PO Q8 PRN TAKE 1 TABLET THREE TIMES DAILY NEEDED FOR ANXIETY. 03/16/2013 No Stop Date Active (Appended: Controlled substance eRx refill - RxReferenceNumber: [id number]) metoprolol tartrate 25 mg tablet RxNorm: 901674 1 Tablet(s) PO BID 03/16/2013 10/11/2013 Inactive citalopram 40 mg tablet RxNorm: 009601 1 Tablet(s) PO QPM 03/1603/09/2014 Inactive hydrocodone 5 mg-acetaminophen 325 mg tablet RxNorm: 9734756 1 Tablet(s) PO Q6 PRN 01/26/2013 No Stop Date Active doxycycline hyclate 100 mg tablet,delayed release RxNorm: 682672 1 Tablet(s) PO BID 01/26/2013 02/08/2013 Inactive Diflucan 150 mg tablet RxNorm: 025444 1 Tablet(s) PO daily 01/201302/04/2013 Inactive gabapentin 100 mg capsule RxNorm: 609893 Capsule(s) PO TAKE (1) CAPSULE BY MOUTH THREE TIMES DAILY. 01/19/2013 07/13/2016 Inactive gabapentin 100 mg capsule RxNorm: 710312 Capsule(s) PO TAKE (1) CAPSULE BY MOUTH THREE TIMES DAILY. 01/19/2013 03/28/2014 Inactive prednisone 10 mg tablets in a dose pack RxNorm: 737261 Tablet(s) PO 12/27/2012 01/01/2013 Inactive Bactroban 2 % Topical Ointment RxNorm: 405510 1 Application TOP BID 12/27/2012 01/02/2013 Inactive gabapentin 100 mg capsule RxNorm: 325363 1 Capsule(s) PO TID 01/18/2013 Inactive TAKE 1 CAPSULE BY MOUTH 3 TIMES DAILY (SCHEDULED) Lipitor 20 mg tablet RxNorm: 626775 Tablet(s) PO TAKE 1 TABLET BY MOUTH ONCE DAILY. 11/17/2012 04/26/2013 Inactive citalopram 40 mg tablet RxNorm: 497862 1 Tablet(s) PO daily 03/15/2013 Inactive citalopram 40 mg tablet RxNorm: 130510 1 Tablet(s) PO daily 11/13/2012 Inactive alprazolam 1 mg tablet RxNorm: 310401 Tablet(s) PO TAKE 1 TABLET THREE TIMES DAILY NEEDED FOR ANXIETY. 10/04/2012 Inactive (Appended: Controlled substance eRx refill - RxReferenceNumber: [id number]) bupropion HCl XL 300 mg 24 hr tablet, extended release RxNorm: 997560 1 Tablet(s) PO daily 09/21/2012 09/03/2013 Inactive this replaces the wellbutrin sr 150mg bid dose she currently has on file hydrocodone 5 mg-acetaminophen 325 mg tablet RxNorm: 6023499 1 Tablet(s) PO Q6 PRN 09/08/2012 09/07/2012 Inactive hydrocodone-acetaminophen 5 mg-325 mg tablet RxNorm: 2274114 1 Tablet(s) PO Q6 PRN 09/08/2012 No Stop Date Active Wellbutrin SR 150 mg tablet,sustained-release RxNorm: 173638 Tablet(s) PO TAKE 1 TABLET BY MOUTH TWICE DAILY. 09/01/2012 Inactive clindamycin 300 mg capsule RxNorm: 134947 1 Capsule(s) PO BID 08/02/2012 08/15/2012 Inactive hydrocodone-acetaminophen 5 mg-325 mg tablet RxNorm: 2753872 1 Tablet(s) PO Q6 PRN 08/02/2012 09/07/2012 Inactive metronidazole 500 mg tablet RxNorm: 267590 1 Tablet(s) PO TID 08/02/2012 08/15/2012 Inactive Kenalog 40 mg/mL Susp for Injection RxNorm: 2918170 Milliliter(s) Inj 06/27/2012 06/27/2012 Inactive prednisone 10 mg tablets in a dose pack RxNorm: 928790 1 Tablet(s) PO as directed 06/27/2012 07/06/2012 Inactive alprazolam 1 mg tablet RxNorm: 424540 Tablet(s) PO 06/10/2012 10/04/2012 Inactive TAKE 1 TABLET THREE TIMES DAILY NEEDED FOR ANXIETY. (Appended: Controlled substance eRx refill - RxReferenceNumber: [id number]) Kenalog 40 mg/mL Susp for Injection RxNorm: 2621811 1 Milliliter(s) Inj 06/06/2012 06/06/2012 Inactive Voltaren 1 % Topical Gel RxNorm: 115026 1 Application TOP QID apply two grams to right elbow, 4 grams to right shoulder and neck, and 4 grams to sacroiliac joint 4 times daily 06/06/2012 06/05/2012 Inactive Voltaren 1 % Topical Gel RxNorm: 270021 1 Application TOP QID apply two grams to right elbow, 4 grams to right shoulder and neck, and 4 grams to sacroiliac joint 4 times daily 06/06/2012 08/31/2016 Inactive alprazolam 1 mg tablet RxNorm: 356783 Tablet(s) PO 06/06/2012 06/09/2012 Inactive TAKE 1 TABLET THREE TIMES DAILY NEEDED FOR ANXIETY. (Appended: Controlled substance eRx refill - RxReferenceNumber: [id number]) alprazolam 1 mg tablet RxNorm: 115329 Tablet(s) PO 06/01/2012 06/06/2012 Inactive TAKE 1 TABLET THREE TIMES DAILY NEEDED FOR ANXIETY. (Appended: Controlled substance eRx refill - RxReferenceNumber: [id number]) hydrocodone-acetaminophen 5 mg-325 mg tablet RxNorm: 9593300 1 Tablet(s) PO Q6 PRN 05/16/2012 08/01/2012 Inactive isosorbide mononitrate ER 30 mg tablet,extended release 24 hr RxNorm: 449742 Tablet (s) PO 03/14/2012 06/15/2013 Inactive TAKE 1 TABLET BY MOUTH ONCE DAILY. Lipitor 20 mg tablet RxNorm: 448717 Tablet(s) PO 03/14/2012 11/16/2012 Inactive TAKE 1 TABLET BY MOUTH ONCE DAILY. gabapentin 100 mg Cap RxNorm: 836024 Capsule(s) PO 03/03/2012 03/02/2012 Inactive TAKE 1 CAPSULE BY MOUTH 3 TIMES DAILY (SCHEDULED) isosorbide mononitrate ER 30 mg tablet,extended release 24 hr RxNorm: 871671 1 Tablet(s) PO daily 03/03/2012 No Stop Date Active gabapentin 100 mg capsule RxNorm: 991365 Capsule(s) PO 201112/18/2012 Inactive TAKE 1 CAPSULE BY MOUTH 3 TIMES DAILY (SCHEDULED) Celexa 20 mg Tab RxNorm: 714251 1 Tablet(s) PO daily 201111/14/2012 Inactive Vitamin B-12 1,000 mcg/mL Injection RxNorm: 009960 Milliliter(s) Inj 02/08/2012 02/08/2012 Inactive Wellbutrin SR 150 mg tablet,sustained-release RxNorm: 046905 1 Tablet(s) PO daily 02/08/2012 09/20/2012 Inactive Rocephin 500 mg Solution for Injection RxNorm: 697992 Inj 01/3102/01/2012 Inactive cefdinir 300 mg Cap RxNorm: 779767 1 Capsule(s) PO BID 201102/29/2012 Inactive triamcinolone acetonide 0.1 % Dental Paste RxNorm: 7001728 1 Application Andrews QID 01/22/2012 01/28/2012 Inactive alprazolam 1 mg tablet RxNorm: 548230 1 Tablet(s) PO TID PRN 06/01/2012 Inactive alprazolam 1 mg Tab RxNorm: 972382 1 Tablet(s) PO TID PRN 01/10/2012 Inactive Carafate 1 gram tablet RxNorm: 894657 1 Tablet(s) PO QID 201112/04/2012 Inactive hydrocodone-acetaminophen 5 mg-325 mg Tab RxNorm: 7843833 1-2 Tablet(s) PO Q6 PRN 11/13/2011 12/12/2011 Inactive Kenalog 40 mg/mL Susp for Injection RxNorm: 0760814 1 Milliliter(s) Inj 10/20/2011 10/20/2011 Inactive Bactrim DS 800 mg-160 mg Tab RxNorm: 282858 1 Tablet(s) PO BID 10/19/2011 02/29/2012 Inactive alprazolam 1 mg Tab RxNorm: 107878 1 Tablet(s) PO TID PRN 11/17/2011 Inactive hydrocodone-acetaminophen 5 mg-325 mg Tab RxNorm: 3505788 1-2 Tablet(s) PO Q6 PRN 10/15/2011 11/12/2011 Inactive hydrocodone-acetaminophen 5 mg-325 mg Tab RxNorm: 0466979 1-2 Tablet(s) PO Q6 PRN 09/24/2011 10/14/2011 Inactive citalopram 40 mg Tab RxNorm: 666546 1 Tablet(s) PO daily 201102/29/2012 Inactive alprazolam 1 mg Tab RxNorm: 392576 1 Tablet(s) PO TID PRN 10/201110/18/2011 Inactive Wellbutrin SR 150 mg Tab RxNorm: 390288 1 Tablet(s) PO BID 10/201102/07/2012 Inactive Wellbutrin SR 150 mg tablet,sustained-release RxNorm: 826251 1 Tablet(s) PO BID 08/25/2011 02/01/2012 Inactive Lipitor 20 mg tablet RxNorm: 023934 1 Tablet(s) PO daily 201002/14/2012 Inactive Percocet 10 mg-325 mg Tab RxNorm: 0060988 1 Tablet(s) PO Q6 PRN 08/13/2011 02/29/2012 Inactive hydrocodone-acetaminophen 5 mg-325 mg Tab RxNorm: 3164044 1-2 Tablet(s) PO Q6 PRN 08/04/2011 09/23/2011 Inactive naproxen 500 mg tablet RxNorm: 147474 1 Tablet(s) PO BID 201001/25/2012 Inactive hydrochlorothiazide 25 mg Tab RxNorm: 943224 1 Tablet(s) PO daily 07/28/2011 01/23/2012 Inactive ketorolac 60 mg/2 mL IM RxNorm: 309587 Milliliter(s) IM 201007/15/2011 Inactive ketorolac 60 mg/2 mL IM RxNorm: 942697 Milliliter(s) IM 201007/02/2011 Inactive ketorolac 15 mg/mL Injection RxNorm: 342550 1 Milliliter(s) Inj 06/24/2011 07/02/2011 Inactive hydrocodone-acetaminophen 5 mg-325 mg Tab RxNorm: 0427240 1-2 Tablet(s) PO Q6 PRN 06/16/2011 08/03/2011 Inactive gabapentin 100 mg Cap RxNorm: 263593 1 Capsule(s) PO TID 201002/01/2012 Inactive lisinopril 10 mg tablet RxNorm: 353619 1 Tablet(s) PO daily 01/25/2012 Inactive alprazolam 1 mg Tab RxNorm: 006163 1 Tablet(s) PO TID PRN 08/24/2011 Inactive Mobic 15 mg Tab RxNorm : 992658 1 Tablet(s) PO daily 05/08/2011 02/01/2012 Inactive triamcinolone acetonide 0.5 % topical cream RxNorm: 8192645 TOP BID No Start Date Active Lipitor 10 mg Tab RxNorm: 146563 1 Tablet(s) PO daily No Start Date 02/01/2012 Inactive citalopram 40 mg Tab RxNorm: 663260 1 Tablet(s) PO daily No Start Date 02/01/2012 Inactive colestipol 1 gram Tab RxNorm: 9177637 1 Tablet(s) PO daily No Start Date 01/31/2012 Inactive hydrocodone-acetaminophen 5 mg-325 mg tablet RxNorm: 4422439 1 Tablet(s) PO PRN 1 tab q6hrs prn No Start Date 05/15/2012 Inactive lisinopril 10 mg Tab RxNorm: 318211 1 Tablet(s) PO daily No Start Date 06/15/2011 Inactive metoprolol succinate ER 25 mg 24 hr Tab RxNorm: 334730 1 Tablet(s) PO daily No Start Date 02/01/2012 Inactive hydrocodone-acetaminophen 5 mg-325 mg Tab RxNorm: 3135674 1 Tablet(s) PO Q6 PRN No Start Date 06/15/2011 Inactive hydrocodone 10 mg-acetaminophen 325 mg tablet RxNorm: 0593175 Tablet(s) PO No Start Date 04/10/2013 Inactive aspirin, buffered 81 mg Tab RxNorm: 238425 1 Tablet(s) PO daily No Start Date 04/16/2011 Inactive citalopram 40 mg Tab RxNorm: 024659 1 Tablet(s) PO daily No Start Date 02/01/2012 Inactive aspirin 81 mg Cap, Delayed Release RxNorm: 277475 1 Capsule(s) PO daily No Start Date 08/31/2016 Inactive isosorbide mononitrate ER 30 mg 24 hr Tab RxNorm: 033028 1 Tablet(s) PO daily No Start Date 02/01/2012 Inactive Fish Oil 1,000 mg Cap RxNorm: 1 Capsule(s) PO daily No Start Date 08/31/2016 Inactive prednisone 10 mg Tab RxNorm: 764700 1 Tablet(s) PO as doctor directed 6 po daily x 2days, then 4 daily x 2days, then2 daily x 2days, then 1 daily x 2days, then 1 /2 dailyx 4 d No Start Date 02/01/2012 Inactive alprazolam 1 mg Tab RxNorm: 349446 1 Tablet(s) PO TID PRN No Start Date 06/15/2011 Inactive Diflucan 150 mg tablet RxNorm: 583965 1 Tablet(s) PO every other day No Start Date 01/21/2014 Inactive betamethasone, augmented 0.05 % Topical Cream RxNorm: 464173 1 Application TOP No Start Date 02/01/2012 Inactive Carafate 1 gram Tab RxNorm: 220542 1 Tablet(s) PO AC & HS No Start Date 02/01/2012 Inactive Lyrica 50 mg Cap RxNorm: 817610 1 Capsule(s) PO TID No Start Date 02/01/2012 Inactive Fish Oil Oral RxNorm: Oral No Start Date Inactive Carafate 1 gram Tab RxNorm: 521901 1 Gram(s) PO AC & HS 1gm before meals and at bedtime No Start Date 02/01/2012 Inactive Zofran 4 mg tablet RxNorm: 342514 1 Tablet(s) PO TID as needed No Start Date 02/25/2017 Inactive metoprolol tartrate 25 mg tablet RxNorm: 423678 1 Tablet(s) PO daily No Start Date 03/15/2013 Inactive colestipol 1 gram Tab RxNorm: 9484814 1 Gram(s) PO daily No Start Date 08/31/2016 Inactive hydrochlorothiazide 25 mg Tab RxNorm: 685986 1 Tablet(s) PO daily No Start Date 01/25/2012 Inactive acyclovir 400 mg Tab RxNorm: 290397 1 Tablet(s) PO QID QID x 10 days then BID No Start Date 02/01/2012 Inactive Mobic 15 mg Tab RxNorm : 441112 1 Tablet(s) PO daily No Start Date 05/07/2011 Inactive hydrochlorothiazide 25 mg Tab RxNorm: 405034 1 Tablet(s) PO daily No Start Date 07/27/2011 Inactive isosorbide mononitrate ER 30 mg 24 hr Tab RxNorm: 388956 1 Tablet(s) PO daily No Start Date 01/31/2012 Inactive Lipitor 10 mg Tab RxNorm: 051208 1 Tablet(s) PO daily No Start Date 08/18/2011 Inactive alprazolam 1 mg Tab RxNorm: 565995 1 Tablet(s) PO PRN 1mg tid prn No Start Date 06/15/2011 Inactive Wellbutrin SR 150 mg Tab RxNorm: 694677 1 Tablet(s) PO BID No Start Date 02/01/2012 Inactive Medication Administered Medication Codes Instructions Start Date Status cyanocobalamin (vit B-12) 1,000 mcg/mL injection solution RxNorm: 430372 1Milliliter 05/27/2017 No longer Active cyanocobalamin (vit B-12) 1,000 mcg/mL injection solution RxNorm: 948469 1Milliliter 04/27/2017 No longer Active cyanocobalamin (vit B-12) 1,000 mcg/mL injection solution RxNorm: 207454 1Milliliter 04/09/2017 No longer Active cyanocobalamin (vit B-12) 1,000 mcg/mL injection solution RxNorm: 654638 Milliliter 03/23/2017 No longer Active cyanocobalamin (vit B-12) 1,000 mcg/mL injection solution RxNorm: 328614 Milliliter 03/11/2017 No longer Active Kenalog 40 mg/mL suspension for injection RxNorm: 2972295 1Milliliter 02/22/2017 No longer Active cyanocobalamin (vit B-12) 1,000 mcg/mL injection solution RxNorm: 203610 1Milliliter 10/14/2016 No longer Active cyanocobalamin (vit B-12) 1,000 mcg/mL injection solution RxNorm: 278914 Milliliter 09/16/2016 No longer Active cyanocobalamin (vit B-12) 1,000 mcg/mL injection solution RxNorm: 095827 1Milliliter 08/11/2016 No longer Active cyanocobalamin (vit B-12) 1,000 mcg/mL injection solution RxNorm: 539324 Milliliter 12/03/2015 No longer Active cyanocobalamin (vit B-12) 1,000 mcg/mL injection solution RxNorm: 106921 Milliliter 04/12/2015 No longer Active cyanocobalamin (vit B-12) 1,000 mcg/mL injection solution RxNorm: 686536 Milliliter 01/22/2015 No longer Active Vitamin B-12 1,000 mcg/mL injection solution RxNorm: 111699 1Milliliter 01/08/2015 No longer Active Kenalog 40 mg/mL suspension for injection RxNorm: 5487163 1Milliliter 01/08/2015 No longer Active cyanocobalamin (vit B-12) 1,000 mcg/mL injection solution RxNorm: 115383 Milliliter 11/28/2014 No longer Active cyanocobalamin (vit B-12) 1,000 mcg/mL injection solution RxNorm: 427971 Milliliter 10/04/2014 No longer Active cyanocobalamin (vit B-12) 1,000 mcg/mL injection solution RxNorm: 985964 Milliliter 09/10/2014 No longer Active cyanocobalamin (vit B-12) 1,000 mcg/mL injection solution RxNorm: 213235 Milliliter 08/06/2014 No longer Active cyanocobalamin (vit B-12) 1,000 mcg/mL injection solution RxNorm: 415231 Milliliter 07/12/2014 No longer Active cyanocobalamin (vit B-12) 1,000 mcg/mL injection solution RxNorm: 024998 1Milliliter 06/28/2014 No longer Active cyanocobalamin (vit B-12) 1,000 mcg/mL injection solution RxNorm: 737471 Milliliter 06/14/2014 No longer Active cyanocobalamin (vit B-12) 1,000 mcg/mL injection solution RxNorm: 461210 Milliliter 05/31/2014 No longer Active cyanocobalamin (vit B-12) 1,000 mcg/mL injection solution RxNorm: 542625 Milliliter 05/16/2014 No longer Active cyanocobalamin (vit B-12) 1,000 mcg/mL injection solution RxNorm: 614905 1Milliliter 04/05/2014 No longer Active cyanocobalamin (vit B-12) 1,000 mcg/mL injection solution RxNorm: 992865 Milliliter 02/01/2014 No longer Active cyanocobalamin (vit B-12) 1,000 mcg/mL injection solution RxNorm: 311132 Milliliter 12/29/2013 No longer Active ketorolac 60 mg/2 mL IM RxNorm: 048243 1Milliliter 04/18/2013 No longer Active Kenalog 40 mg/mL Susp for Injection RxNorm: 2678378 Milliliter 06/27/2012 No longer Active Kenalog 40 mg/mL Susp for Injection RxNorm: 4099620 1Milliliter 06/06/2012 No longer Active Vitamin B-12 1,000 mcg/mL Injection RxNorm: 918822 Milliliter 02/08/2012 No longer Active Rocephin 500 mg Solution for Injection RxNorm: 929331 02/01/2012 No longer Active Kenalog 40 mg/mL Susp for Injection RxNorm: 7849815 1Milliliter 10/20/2011 No longer Active ketorolac 60 mg/2 mL IM RxNorm: 790267 Milliliter 07/15/2011 No longer Active ketorolac 60 mg/2 mL IM RxNorm: 479336 Milliliter 07/02/2011 No longer Active Immunizations Vaccine Codes Date Status Influenza CVX: 141 05/27/2017 completed Influenza CVX: 141 04/23/2016 completed Pneumococcal CVX: 33 08/06/2014 completed Pneumococcal (Adult) CVX: 33 08/06/2014 completed Influenza CVX: 141 05/16/2014 completed Assessments Condition Codes Effective Dates Chronic pain syndrome ICD-10: G89.4 ICD-9: 338.4 [...] organs ICD -10: Z80.0 ICD-9: V16.0 12/03/2015 Essential (primary) hypertension ICD-10: I10 ICD-9: 401.9 10/10/2015 Gastro-esophageal reflux disease without esophagitis ICD-10 : [...] ref lab 12/25/2016 Vitamin D 25 Oh [id number] VITAMIN D, 25 HYDROXY 30.42 ng/mL Cbc With Differential Ord2 WBC 6.53 K/ul 08/11/2016 Cbc With Differential Ord2 RBC 3.86 M/ul 08/11/2016 Cbc With Differential Ord2 HGB 11.6 g/dl 08/11/2016 Cbc With Differential Ord2 HCT 35.4 % 08/11/2016 Cbc With Differential Ord2 Neut% 60.4 % 08/11/2016 Cbc With Differential Ord2 MCV 91.7 fl 08/11/2016 Cbc With Differential Ord2 Lymph% 28.6 % 08/11/2016 Cbc With Differential Ord2 MCH 30.1 pg 08/11/2016 Cbc With Differential Ord2 [place]% 8.4 % 08/11/2016 Cbc With Differential Ord2 Eos% 2.1 % 08/11/2016 Cbc With Differential Ord2 MCHC 32.8 pg 08/11/2016 Cbc With Differential Ord2 PLT 345 K/ul 08/11/2016 Cbc With Differential Ord2 Baso% 0.5 % 08/11/2016 Cbc With Differential Ord2 RDW 12.9 % 08/11/2016 Cbc With Differential Ord2 Neut ABS# 3.94 K/ul 08/11/2016 Cbc With Differential Ord2 Lymph ABS# 1.87 K/ul 08/11/2016 Cbc With Differential Ord2 [place] ABS# 0.6 K/ul 08/11/2016 Cbc With Differential Ord2 Eos ABS# 0.1 K/ul 08/11/2016 Cbc With Differential Ord2 Baso ABS# 0.0 K/ul 08/11/2016 Tsh Ord6 hTSH II 0.90 uIU/mL 08/11/2016 Iron Ord72 Iron 135 ug/dl 08/11/2016 Ferritin Ord22 FERRITIN 135.3 ng/mL 08/11/2016 B12 Cjp585 B12 >1500.00 pg/ml 08/11/2016 Comp Metabolic Ilc419 NA 138 mEq/L 08/11/2016 Comp Metabolic Czp794 K 4.6 mEq/L 08/11/2016 Comp Metabolic Ppo358 CL 102 mEq/L 08/11/2016 Comp Metabolic Mjb871 CO2 29.0 mEq/L 08/11/2016 Comp Metabolic Wpb275 ANION GAP 12 08/11/2016 Comp Metabolic Pdo632 GLUCOSE 83 mg/dL 08/11/2016 Comp Metabolic Lfk357 Creat 1.0 mg/dL 08/11/2016 Comp Metabolic Lmf538 eGFR 60 ml/min/1.73m2 08/11/2016 Comp Metabolic Cqi783 BUN 14 mg/dL 08/11/2016 Comp Metabolic Vaf843 B/C Ratio 14.6 Ratio 08/11/2016 Comp Metabolic Oej628 CALCIUM 10.2 mg/dL 08/11/2016 Comp Metabolic Cbw745 ALK PHOS 69 U/L 08/11/2016 Comp Metabolic Edh261 AST(SGOT) 15 U/L 08/11/2016 Comp Metabolic Fib415 ALT(SGPT) 12 U/L 08/11/2016 Comp Metabolic Lla771 BILI T 1.3 mg/dL 08/11/2016 Comp Metabolic Vyr561 ALBUMIN 4.7 g/dL 08/11/2016 Comp Metabolic Zjn979 TPRO 7.3 g/dL 08/11/2016 Comp Metabolic Egf171 GLOB 2.6 g/dL 08/11/2016 Comp Metabolic Zdt877 A/G Ratio 1.9 Ratio 08/11/2016 Comp Metabolic Kap113 Osmo 275 mOsmo 08/11/2016 Culture Urine [id number] URINE CULTURE SEE NOTES 06/01/2016 Culture Urine [id number] Continued Results 06/01/2016 Urine Culture Ucult Complete [...] Ord15 CALCIUM 9.6 mg/dL 05/18/2016 Comp Metabolic Jrw175 NA 143 mEq/L 04/28/2016 Comp Metabolic Cqo943 K 3.3 mEq/L 04/28/2016 Comp Metabolic Uvh400 CL 108 mEq/L 04/28/2016 Comp Metabolic Vee006 CO2 27.0 mEq/L 04/28/2016 Comp Metabolic Sqe665 ANION GAP 11 04/28/2016 Comp Metabolic Wcs553 GLUCOSE 103 mg/dL 04/28/2016 Comp Metabolic Qpo298 Creat 0.8 mg/dL 04/28/2016 Comp Metabolic Qsk172 eGFR 79 ml/min/1.73m2 04/28/2016 Comp Metabolic Lbf949 BUN 11 mg/dL 04/28/2016 Comp Metabolic Ycn919 B/C Ratio 14.5 Ratio 04/28/2016 Comp Metabolic Tut683 CALCIUM 9.1 mg/dL 04/28/2016 Comp Metabolic Cfj930 ALK PHOS 60 U/L 04/28/2016 Comp Metabolic Fnj083 AST(SGOT) 15 U/L 04/28/2016 Comp Metabolic Kmn110 ALT(SGPT) 13 U/L 04/28/2016 Comp Metabolic Guc125 BILI T 1.0 mg/dL 04/28/2016 Comp Metabolic Fai543 ALBUMIN 4.1 g/dL 04/28/2016 Comp Metabolic Plc868 TPRO 6.5 g/dL 04/28/2016 Comp Metabolic Itk790 GLOB 2.4 g/dL 04/28/2016 Comp Metabolic Vam040 A/G Ratio 1.7 Ratio 04/28/2016 Comp Metabolic Zrh880 Osmo 285 mOsmo 04/28/2016 Cbc With Differential Ord2 WBC 5.23 K/ul 04/28/2016 Cbc With Differential Ord2 RBC 3.58 M/ul 04/28/2016 Cbc With Differential Ord2 HGB 10.4 g/dl 04/28/2016 Cbc With Differential Ord2 Neut% 60.1 % 04/28/2016 Cbc With Differential Ord2 HCT 32.1 % 04/28/2016 Cbc With Differential Ord2 MCV 89.7 fl 04/28/2016 Cbc With Differential Ord2 Lymph% 26.8 % 04/28/2016 Cbc With Differential Ord2 MCH 29.1 pg 04/28/2016 Cbc With Differential Ord2 [place]% 9.2 % 04/28/2016 Cbc With Differential Ord2 MCHC 32.4 pg 04/28/2016 Cbc With Differential Ord2 Eos% 3.3 % 04/28/2016 Cbc With Differential Ord2 PLT 277 K/ul 04/28/2016 Cbc With Differential Ord2 Baso% 0.6 % 04/28/2016 Cbc With Differential Ord2 RDW 13.7 % 04/28/2016 Cbc With Differential Ord2 Neut ABS# 3.15 K/ul 04/28/2016 Cbc With Differential Ord2 Lymph ABS# 1.40 K/ul 04/28/2016 Cbc With Differential Ord2 [place] ABS# 0.5 K/ul 04/28/2016 Cbc With Differential Ord2 Eos ABS# 0.2 K/ul 04/28/2016 Cbc With Differential Ord2 Baso ABS# 0.0 K/ul 04/28/2016 Lipid Ord30 CHOL 131 mg/dL 04/28/2016 Lipid Ord30 HDL 36.0 mg/dl 04/28/2016 Lipid Ord30 TRIG 134 mg/dL 04/28/2016 Lipid Ord30 LDL 68 mg/dL 04/28/2016 Lipid Ord30 C/HDL 3.6 Ratio 04/28/2016 Tsh Ord6 hTSH II 1.10 uIU/mL 04/28/2016 Culture Urine [id number] URINE CULTURE SEE NOTES 03/16/2016 Culture Urine [id number] Continued Results 03/16/2016 Urine Culture Ucult Complete >100,000 col/ml aerobic growth sent to ref lab 03/14/2016 Lipid Ord30 CHOL 226 mg/dL 10/15/2015 Lipid Ord30 HDL 44.0 mg/dl 10/15/2015 Lipid Ord30 TRIG 220 mg/dL 10/15/2015 Lipid Ord30 LDL 138 mg/dL 10/15/2015 Lipid Ord30 C/HDL 5.1 Ratio 10/15/2015 Comp Metabolic Uxn014 NA 139 mEq/L 10/15/2015 Comp Metabolic Vxc971 K 4.2 mEq/L 10/15/2015 Comp Metabolic Lwj153 CL 104 mEq/L 10/15/2015 Comp Metabolic Jzq000 CO2 25.0 mEq/L 10/15/2015 Comp Metabolic Kdf499 ANION GAP 14 10/15/2015 Comp Metabolic Zvk603 GLUCOSE 114 mg/dL 10/15/2015 Comp Metabolic Fnv030 Creat 1.0 mg/dL 10/15/2015 Comp Metabolic Ejh346 eGFR 59 ml/min/1.73m2 10/15/2015 Comp Metabolic Cyb339 BUN 18 mg/dL 10/15/2015 Comp Metabolic Wit482 B/C Ratio 18.4 Ratio 10/15/2015 Comp Metabolic Nnm048 CALCIUM 9.8 mg/dL 10/15/2015 Comp Metabolic Afw998 ALK PHOS 59 U/L 10/15/2015 Comp Metabolic Ddb530 AST(SGOT) 14 U/L 10/15/2015 Comp Metabolic Hri822 ALT(SGPT) 13 U/L 10/15/2015 Comp Metabolic Sag704 BILI T 0.9 mg/dL 10/15/2015 Comp Metabolic Tag125 ALBUMIN 4.2 g/dL 10/15/2015 Comp Metabolic Szq327 TPRO 6.6 g/dL 10/15/2015 Comp Metabolic Ovy707 GLOB 2.4 g/dL 10/15/2015 Comp Metabolic Dpa736 A/G Ratio 1.8 Ratio 10/15/2015 Comp Metabolic Oqm409 Osmo 280 mOsmo 10/15/2015 Tsh Ord6 hTSH II 1.78 uIU/mL 10/15/2015 Cbc With Differential Ord2 WBC 7.40 K/ul 10/15/2015 Cbc With Differential Ord2 RBC 3.94 M/ul 10/15/2015 Cbc With Differential Ord2 HGB 11.7 g/dl 10/15/2015 Cbc With Differential Ord2 Neut% 61.7 % 10/15/2015 Cbc With Differential Ord2 HCT 36.1 % 10/15/2015 Cbc With Differential Ord2 MCV 91.6 fl 10/15/2015 Cbc With Differential Ord2 Lymph% 26.4 % 10/15/2015 Cbc With Differential Ord2 MCH 29.7 pg 10/15/2015 Cbc With Differential Ord2 [place]% 8.5 % 10/15/2015 Cbc With Differential Ord2 MCHC 32.4 pg 10/15/2015 Cbc With Differential Ord2 Eos% 3.1 % 10/15/2015 Cbc With Differential Ord2 PLT 382 K/ul 10/15/2015 Cbc With Differential Ord2 Baso% 0.3 % 10/15/2015 Cbc With Differential Ord2 RDW 13.6 % 10/15/2015 Cbc With Differential Ord2 Neut ABS# 4.57 K/ul 10/15/2015 Cbc With Differential Ord2 Lymph ABS# 1.95 K/ul 10/15/2015 Cbc With Differential Ord2 [place] ABS# 0.6 K/ul 10/15/2015 Cbc With Differential Ord2 Eos ABS# 0.2 K/ul 10/15/2015 Cbc With Differential Ord2 Baso ABS# 0.0 K/ul 10/15/2015 Cbc With Differential Ord2 New Analyzer Notice Please note new ref ranges starting 09-04-2015 due to implemntation of new five part differential hematolgy analyzer. 10/15/2015 Comp Metabolic Hho977 NA 136 mEq/L 04/12/2015 Comp Metabolic Gck362 K 4.4 mEq/L 04/12/2015 Comp Metabolic Utp584 CL 102 mEq/L 04/12/2015 Comp Metabolic Pep768 CO2 28.0 mEq/L 04/12/2015 Comp Metabolic Vkn135 ANION GAP 10 04/12/2015 Comp Metabolic Lkf677 GLUCOSE 86 mg/dL 04/12/2015 Comp Metabolic Czv606 Creat 0.9 mg/dL 04/12/2015 Comp Metabolic Syp429 eGFR 70 ml/min/1.73m2 04/12/2015 Comp Metabolic Uxi878 BUN 17 mg/dL 04/12/2015 Comp Metabolic Apo639 B/C Ratio 20.0 Ratio 04/12/2015 Comp Metabolic Dgn505 CALCIUM 9.6 mg/dL 04/12/2015 Comp Metabolic Wxn829 ALK PHOS 60 U/L 04/12/2015 Comp Metabolic Dez764 AST(SGOT) 16 U/L 04/12/2015 Comp Metabolic Hvs874 ALT(SGPT) 14 U/L 04/12/2015 Comp Metabolic Quq847 BILI T 1.0 mg/dL 04/12/2015 Comp Metabolic Zjo160 ALBUMIN 4.4 g/dL 04/12/2015 Comp Metabolic Wnp510 TPRO 6.8 g/dL 04/12/2015 Comp Metabolic Bzg297 GLOB 2.4 g/dL 04/12/2015 Comp Metabolic Nyr348 A/G Ratio 1.8 Ratio 04/12/2015 Comp Metabolic Oam297 Osmo 273 mOsmo 04/12/2015 Cbc With Differential [...] Differential Ord2 RDW 15.0 % 04/12/2015 B12 Bvm544 B12 >1500.00 pg/ml 04/12/2015 Tsh Ord6 hTSH II 1.17 uIU/mL 04/12/2015 Vitamin D 25 Oh Vmh2286 VITAMIN D, 25 HYDROXY 62.36 ng/mL A1C HPLC 9867405 A1C HPLC 61938-7 6.1 % 01/24/2013 TSH 6126264 TSH 1.854 uIU/ML 01/23/2013 GFR CALC 4902101 GFR AA >60 ML/MIN 01/23/2013 GFR CALC 8251399 GFR NON-AA >60 ML/MIN 01/23/2013 CBC 1473394 WBC 8.7 10e9/L 01/23/2013 CBC 7547709 RBC 3.84 10e12/L 01/23/2013 CBC 9954030 HGB 11.3 g/dL 01/23/2013 CBC 1737357 HCT DET 34.5 % 01/23/2013 CBC 9505075 MCV 89.8 fL 01/23/2013 CBC 7266982 MCH 29.4 pg 01/23/2013 CBC 5600153 MCHC 32.8 g/dL 01/23/2013 CBC 2587403 PLT 384 10e9/L 01/23/2013 CBC 6908361 MPV 10.7 fL 01/23/2013 CBC 3697599 CHRISTIANNE % 70.2 % 01/23/2013 CBC 1523351 LY % 19.2 % 01/23/2013 CBC 1087974 MON % 6.9 % 01/23/2013 CBC 0920953 EOS % 3.5 % 01/23/2013 CBC 7343225 BASO % 0.2 % 01/23/2013 CBC 3970661 RDW 13.0 % 01/23/2013 CBC 3514216 ABS CHRISTIANNE 6.11 10e9/L 01/23/2013 CBC 9690414 ABS LYMPH 1.67 10e9/L 01/23/2013 CBC 9435053 ABS MONO 0.60 10e9/L 01/23/2013 CBC 4540623 ABS EOS 0.30 10e9/L 01/23/2013 CBC 1700221 ABS BASO 0.02 10e9/L 01/23/2013 CBC 0211171 RDW-SD 42.1 fL 01/23/2013 CHEM 14 9822193 AST 11 U/L 01/23/2013 CHEM 14 8644040 ALT 16 IU/L 01/23/2013 CHEM 14 8970790 BUN 10 MG/DL 01/23/2013 CHEM 14 8638418 ALBUMIN 4.4 GM/DL 01/23/2013 CHEM 14 6660928 CHLORIDE 104 MMOL/L 01/23/2013 CHEM 14 9943402 BILI TOT 1.1 MG/DL 01/23/2013 CHEM 14 4441931 ALK PHOS 74 U/L 01/23/2013 CHEM 14 8571107 SODIUM 141 MMOL/L 01/23/2013 CHEM 14 5953152 CREATININE 0.76 MG/DL 01/23/2013 CHEM 14 2753886 CALCIUM 9.4 MG/DL 01/23/2013 CHEM 14 3380169 POTASSIUM 3.4 MMOL/L 01/23/2013 CHEM 14 9619128 PROT TOT 6.6 GM/DL 01/23/2013 CHEM 14 7055366 GLUCOSE 107 MG/DL 01/23/2013 CHEM 14 5880014 BICARB 28 MMOL/L 01/23/2013 CHEM 14 4551025 ANION GAP 9 MEQ/L 01/23/2013 ESR 9135944 ESR 28 MM/HR 12/28/2012 CRP 8325687 CRP 0.5 MG/DL 12/28/2012 VIT B 12 4284237 VIT B 12 760 PG/ML 12/28/2012 URIC ACID 3418855 URIC ACID 4.4 MG/DL 12/27/2012 GFR CALC 9201195 GFR AA >60 ML/MIN 12/27/2012 GFR CALC 6273825 GFR NON-AA >60 ML/MIN 12/27/2012 CHEM 14 9788891 AST 16 U/L 12/27/2012 CHEM 14 0922607 ALT 17 IU/L 12/27/2012 CHEM 14 2583779 BUN 8 MG/DL 12/27/2012 CHEM 14 7752873 ALBUMIN 4.4 GM/DL 12/27/2012 CHEM 14 7224806 CHLORIDE 104 MMOL/L 12/27/2012 CHEM 14 0227163 BILI TOT 1.0 MG/DL 12/27/2012 CHEM 14 5069699 ALK PHOS 79 U/L 12/27/2012 CHEM 14 6065934 SODIUM 142 MMOL/L 12/27/2012 CHEM 14 9642102 CREATININE 0.72 MG/DL 12/27/2012 CHEM 14 5423712 CALCIUM 9.3 MG/DL 12/27/2012 CHEM 14 6131142 POTASSIUM 3.4 MMOL/L 12/27/2012 CHEM 14 9001466 PROT TOT 6.9 GM/DL 12/27/2012 CHEM 14 1521531 GLUCOSE 96 MG/DL 12/27/2012 CHEM 14 6546482 BICARB 32 MMOL/L 12/27/2012 CHEM 14 0976212 ANION GAP 6 MEQ/L 12/27/2012 CBC 1859704 WBC 8.2 10e9/L 12/27/2012 CBC 4311551 RBC 3.75 10e12/L 12/27/2012 CBC 1145144 HGB 11.1 g/dL 12/27/2012 CBC 6062369 HCT DET 34.2 % 12/27/2012 CBC 2531861 MCV 91.2 fL 12/27/2012 CBC 6952441 MCH 29.6 pg 12/27/2012 CBC 3473725 MCHC 32.5 g/dL 12/27/2012 CBC 5842102 PLT 335 10e9/L 12/27/2012 CBC 6027370 MPV 10.7 fL 12/27/2012 CBC 6527189 CHRISTIANNE % 68.2 % 12/27/2012 CBC 5559985 LY % 22.0 % 12/27/2012 CBC 3706263 MON % 7.3 % 12/27/2012 CBC 8382381 EOS % 2.3 % 12/27/2012 CBC 8927480 BASO % 0.2 % 12/27/2012 CBC 2051578 RDW 12.8 % 12/27/2012 CBC 4415193 ABS CHRISTIANNE 5.59 10e9/L 12/27/2012 CBC 9066340 ABS LYMPH 1.80 10e9/L 12/27/2012 CBC 2370000 ABS MONO 0.60 10e9/L 12/27/2012 CBC 1048431 ABS EOS 0.19 10e9/L 12/27/2012 CBC 2425653 ABS BASO 0.02 10e9/L 12/27/2012 CBC 5635648 RDW-SD 41.4 fL 12/27/2012 A1C HPLC 0038393 A1C HPLC 21674-3 5.4 % 10/10/2012 LIPID GRP HDL TEST 45 MG/DL 10/07/2012 LIPID GRP TRIG 182 MG/DL 10/07/2012 LIPID GRP TEST LDL 94 MG/DL 10/07/2012 LIPID GRP CHOL 175 MG/DL 10/07/2012 LIPID GRP RCHOL/HDL 3.89 RATIO 10/07/2012 TSH 6431751 TSH 1.239 uIU/ML 10/07/2012 GFR CALC 9545085 GFR AA >60 ML/MIN 10/07/2012 GFR CALC 0895389 GFR NON-AA >60 ML/MIN 10/07/2012 CBC 6283315 WBC 7.1 10e9/L 10/07/2012 CBC 3955572 RBC 3.98 10e12/L 10/07/2012 CBC 4467840 HGB 11.8 g/dL 10/07/2012 CBC 6181210 HCT DET 36.0 % 10/07/2012 CBC 6302114 MCV 90.5 fL 10/07/2012 CBC 2292760 MCH 29.6 pg 10/07/2012 CBC 0996482 MCHC 32.8 g/dL 10/07/2012 CBC 0709422 PLT 333 10e9/L 10/07/2012 CBC 0766967 MPV 11.5 fL 10/07/2012 CBC 7368240 CHRISTIANNE % 65.7 % 10/07/2012 CBC 0364119 LY % 24.0 % 10/07/2012 CBC 2844198 MON % 7.4 % 10/07/2012 CBC 0472289 EOS % 2.5 % 10/07/2012 CBC 9186433 BASO % 0.4 % 10/07/2012 CBC 2621447 RDW 12.7 % 10/07/2012 CBC 8917214 ABS CHRISTIANNE 4.66 10e9/L 10/07/2012 CBC 2219926 ABS LYMPH 1.70 10e9/L 10/07/2012 CBC 9832909 ABS MONO 0.53 10e9/L 10/07/2012 CBC 7151619 ABS EOS 0.18 10e9/L 10/07/2012 CBC 5705784 ABS BASO 0.03 10e9/L 10/07/2012 CBC 2246745 RDW-SD 41.3 fL 10/07/2012 CHEM 14 7489535 AST 15 U/L 10/07/2012 CHEM 14 1158203 ALT 15 IU/L 10/07/2012 CHEM 14 6940884 BUN 7 MG/DL 10/07/2012 CHEM 14 6923273 ALBUMIN 4.3 GM/DL 10/07/2012 CHEM 14 8189884 CHLORIDE 103 MMOL/L 10/07/2012 CHEM 14 3855402 BILI TOT 1.2 MG/DL 10/07/2012 CHEM 14 2764273 ALK PHOS 83 U/L 10/07/2012 CHEM 14 8170663 SODIUM 139 MMOL/L 10/07/2012 CHEM 14 8805557 CREATININE 0.74 MG/DL 10/07/2012 CHEM 14 4327657 CALCIUM 9.4 MG/DL 10/07/2012 CHEM 14 6827551 POTASSIUM 3.6 MMOL/L 10/07/2012 CHEM 14 5561613 PROT TOT 6.6 GM/DL 10/07/2012 CHEM 14 4496956 GLUCOSE 114 MG/DL 10/07/2012 CHEM 14 4579648 BICARB 25 MMOL/L 10/07/2012 CHEM 14 8468225 ANION GAP 11 MEQ/L 10/07/2012 MAGNESIUM 8215517 MAGNESIUM 1.5 MEQ/L 02/02/2012 GFR CALC 1808428 GFR AA >60 ML/MIN 02/01/2012 GFR CALC 5592784 GFR NON-AA 53.0L ML/MIN 02/01/2012 CHEM 14 2770743 AST 12 U/L 02/01/2012 CHEM 14 4487533 ALT 12 IU/L 02/01/2012 CHEM 14 7003820 BUN 24 MG/DL 02/01/2012 CHEM 14 9164885 ALBUMIN 4.3 GM/DL 02/01/2012 CHEM 14 9759211 CHLORIDE 108 MMOL/L 02/01/2012 CHEM 14 5838137 BILI TOT 0.6 MG/DL 02/01/2012 CHEM 14 3776381 ALK PHOS 69 U/L 02/01/2012 CHEM 14 8362023 SODIUM 142 MMOL/L 02/01/2012 CHEM 14 1403967 CREATININE 1.03 MG/DL 02/01/2012 CHEM 14 1805281 CALCIUM 9.5 MG/DL 02/01/2012 CHEM 14 0386227 POTASSIUM 5.1 MMOL/L 02/01/2012 CHEM 14 8270537 PROT TOT 6.7 GM/DL 02/01/2012 CHEM 14 3174685 GLUCOSE 112 MG/DL 02/01/2012 CHEM 14 3854350 BICARB 22 MMOL/L 02/01/2012 CHEM 14 3745236 ANION GAP 12 MEQ/L 02/01/2012 CBC 7268153 WBC 9.6 10e9/L 01/22/2012 CBC 0018825 RBC 3.71 10e12/L 01/22/2012 CBC 7735746 HGB 10.8 g/dL 01/22/2012 CBC 1491118 HCT DET 33.4 % 01/22/2012 CBC 9309847 MCV 90.0 fL 01/22/2012 CBC 2257581 MCH 29.1 pg 01/22/2012 CBC 3422047 MCHC 32.3 g/dL 01/22/2012 CBC 1134588 PLT 359 10e9/L 01/22/2012 CBC 7862992 MPV 10.4 fL 01/22/2012 CBC 6626796 CHRISTIANNE % 66.2 % 01/22/2012 CBC 4159022 LY % 22.4 % 01/22/2012 CBC 3838652 MON % 8.4 % 01/22/2012 CBC 8935272 EOS % 2.8 % 01/22/2012 CBC 8432988 BASO % 0.2 % 01/22/2012 CBC 6926317 RDW 14.2 % 01/22/2012 CBC 2132340 ABS CHRISTIANNE 6.36 10e9/L 01/22/2012 CBC 9921825 ABS LYMPH 2.15 10e9/L 01/22/2012 CBC 6508339 ABS MONO 0.81 10e9/L 01/22/2012 CBC 0704013 ABS EOS 0.27 10e9/L 01/22/2012 CBC 8346921 ABS BASO 0.02 10e9/L 01/22/2012 CBC 7183213 RDW-SD 44.8 fL 01/22/2012 TSH 1241655 TSH 1.539 uIU/ML 01/22/2012 GFR CALC 8254928 GFR AA 26.0L ML/MIN 01/22/2012 GFR CALC 7967869 GFR NON-AA 22.0 ML/MIN 01/22/2012 CHEM 14 2246626 AST 13 U/L 01/22/2012 CHEM 14 4677197 ALT 13 IU/L 01/22/2012 CHEM 14 1967758 BUN 42 MG/DL 01/22/2012 CHEM 14 7764337 ALBUMIN 4.4 GM/DL 01/22/2012 CHEM 14 8001361 CHLORIDE 103 MMOL/L 01/22/2012 CHEM 14 2612072 BILI TOT 0.8 MG/DL 01/22/2012 CHEM 14 2633379 ALK PHOS 82 U/L 01/22/2012 CHEM 14 8714881 SODIUM 138 MMOL/L 01/22/2012 CHEM 14 1434446 CREATININE 2.23 MG/DL 01/22/2012 CHEM 14 4605620 CALCIUM 9.7 MG/DL 01/22/2012 CHEM 14 0667143 POTASSIUM 4.9 MMOL/L 01/22/2012 CHEM 14 6798227 PROT TOT 7.1 GM/DL 01/22/2012 CHEM 14 7950212 GLUCOSE 92 MG/DL 01/22/2012 CHEM 14 3061079 BICARB 20 MMOL/L 01/22/2012 CHEM 14 3863330 ANION GAP 15 MEQ/L 01/22/2012 LIPID GRP HDL TEST 35 MG/DL 01/22/2012 LIPID GRP 6936617 TRIG 320 MG/DL 01/22/2012 LIPID GRP 2893836 TEST LDL 89 MG/DL 01/22/2012 LIPID GRP 4160546 CHOL 188 MG/DL 01/22/2012 LIPID GRP 1414218 RCHOL/HDL 5.37 RATIO 01/22/2012 URINALYSIS NONAUTO W/O SCOPE 11917 Specific [place] 1.030 DateTime(Free Text in Aprima) URINALYSIS NONAUTO W/O SCOPE 43881 PH 6 DateTime(Free Text in Aprima) URINALYSIS NONAUTO W/O SCOPE 02702 GLUCOSE neg DateTime( Free Text in Aprima) URINALYSIS NONAUTO W/O SCOPE 05847 Protein neg DateTime( Free Text in Aprima) URINALYSIS NONAUTO W/O SCOPE 51614 Blood neg DateTime(Free Text in Aprima) URINALYSIS NONAUTO W/O SCOPE 65704 Bilirubin neg DateTime(Free Text in Aprima) URINALYSIS NONAUTO W/O SCOPE 84536 Ketones neg DateTime( Free Text in Aprima) URINALYSIS NONAUTO W/O SCOPE 57317 Urobilinogen neg DateTime(Free Text in Aprima) URINALYSIS NONAUTO W/O SCOPE 08448 Nitrite neg DateTime( Free Text in Apr[employer]) URINALYSIS NONAUTO W/O SCOPE 53933 Leukocytes neg DateTime(Free Text in Aprima) Review [...] NO PRSV 4 ABDOULAYE 3 YRS+ CPT-4: 96026 05/27/2017 ADMIN INFLUENZA VIRUS VAC CPT-4: G0008 05/27/2017 THER/PROPH/DIAG INJ SC/IM CPT-4: 76618 05/27/2017 VITAMIN B12 INJECTION CPT-4: J3420 05/27/2017 THER/PROPH/DIAG INJ SC/IM CPT-4: 63863 04/27/2017 VITAMIN B12 INJECTION CPT-4: J3420 04/27/2017 THER/PROPH/DIAG INJ SC/IM CPT-4: 32226 04/09/2017 VITAMIN B12 INJECTION CPT-4: J3420 04/09/2017 THER/PROPH/DIAG INJ SC/IM CPT-4: 58110 03/23/2017 VITAMIN B12 INJECTION CPT-4: J3420 03/23/2017 THER/PROPH/DIAG INJ SC/IM CPT-4: 72779 03/11/2017 VITAMIN B12 INJECTION CPT-4: J3420 03/11/2017 URINALYSIS NONAUTO W/O SCOPE CPT-4: 99573 02/22/2017 THER/PROPH/DIAG INJ SC/IM CPT-4: 48024 02/22/2017 TRIAMCINOLONE ACET INJ NOS CPT-4: J3301 02/22/2017 PPPS, SUBSEQ VISIT CPT -4: G0439 12/28/2016 URINALYSIS NONAUTO W/O SCOPE CPT-4: 85667 12/24/2016 THER/PROPH/DIAG INJ SC/IM CPT-4: 93012 10/14/2016 VITAMIN B12 INJECTION CPT-4: J3420 10/14/2016 THER/PROPH/DIAG INJ SC/IM CPT-4: 58742 09/16/2016 VITAMIN B12 INJECTION CPT-4: J3420 09/16/2016 THER/PROPH/DIAG INJ SC/IM CPT-4: 79202 08/11/2016 VITAMIN B12 INJECTION CPT-4: J3420 08/11/2016 URINALYSIS NONAUTO W/O SCOPE CPT-4: 50299 05/27/2016 ADMIN INFLUENZA VIRUS VAC CPT-4: G0008 04/23/2016 FLU VACC PRSV FREE INC ANTIG CPT-4: 69715 04/23/2016 URINALYSIS NONAUTO W/O SCOPE CPT-4: 96802 03/13/2016 URINALYSIS NONAUTO W/O SCOPE CPT-4: 73046 03/03/2016 VITAMIN B12 INJECTION CPT-4: J3420 12/03/2015 THER/PROPH/DIAG INJ SC/IM CPT-4: 55019 04/12/2015 VITAMIN B12 INJECTION CPT-4: J3420 04/12/2015 VITAMIN B12 INJECTION CPT-4: J3420 01/22/2015 THER/PROPH/DIAG INJ SC/IM CPT-4: 09913 01/22/2015 TRIAMCINOLONE ACET INJ NOS CPT-4: J3301 01/08/2015 THER/PROPH/DIAG INJ SC/IM CPT-4: 85978 01/08/2015 VITAMIN B12 INJECTION CPT-4: J3420 01/08/2015 THER/PROPH/DIAG INJ SC/IM CPT-4: 44540 11/28/2014 VITAMIN B12 INJECTION CPT-4: J3420 11/28/2014 THER/PROPH/DIAG INJ SC/IM CPT-4: 60307 10/04/2014 VITAMIN B12 INJECTION CPT-4: J3420 10/04/2014 VITAMIN B12 INJECTION CPT-4: J3420 09/10/2014 ADMIN PNEUMOCOCCAL VACCINE SNOMED CT: 28120842 CPT-4: G0009 08/06/2014 Pneumococcal Polysaccharide Vaccine, 23-Valent, Ad CPT-4: 60054 08/06/2014 THER/PROPH/DIAG INJ SC/IM CPT-4: 33841 08/06/2014 VITAMIN B12 INJECTION CPT-4: J3420 08/06/2014 THER/PROPH/DIAG INJ SC/IM CPT-4: 94152 07/12/2014 VITAMIN B12 INJECTION CPT-4: J3420 07/12/2014 THER/PROPH/DIAG INJ SC/IM CPT-4: 46665 06/28/2014 VITAMIN B12 INJECTION CPT-4: J3420 06/28/2014 THER/PROPH/DIAG INJ SC/IM CPT-4: 75768 06/14/2014 VITAMIN B12 INJECTION CPT-4: J3420 06/14/2014 THER/PROPH/DIAG INJ SC/IM CPT-4: 58810 05/31/2014 VITAMIN B12 INJECTION CPT-4: J3420 05/31/2014 ADMIN INFLUENZA VIRUS VAC CPT-4: G0008 05/16/2014 FLU VAC NO PRSV 4 ABDOULAYE 3 YRS+ Assigned to/Ron Sandrine CPT-4: [id number] 05/16/2014 THER/PROPH/DIAG INJ SC/IM CPT-4: 52636 05/16/2014 VITAMIN B12 INJECTION CPT-4: J3420 05/16/2014 THER/PROPH/DIAG INJ SC/IM CPT-4: 66716 04/05/2014 VITAMIN B12 INJECTION CPT-4: J3420 04/05/2014 THER/PROPH/DIAG INJ SC/IM CPT-4: 84238 02/01/2014 VITAMIN B12 INJECTION CPT-4: J3420 02/01/2014 THER/PROPH/DIAG INJ SC/IM CPT-4: 71158 12/29/2013 VITAMIN B12 INJECTION CPT-4: J3420 12/29/2013 TRIAMCINOLONE ACET INJ NOS CPT-4: J3301 05/18/2013 DRAIN/INJECT JOINT/BURSA CPT-4: 31502 05/18/2013 THER/PROPH/DIAG INJ SC/IM CPT-4: 48435 04/18/2013 KETOROLAC TROMETHAMINE INJ CPT-4: J1885 04/18/2013 PRESCRIP TRANSMIT VIA ERX SY CPT-4: G8553 03/16/2013 PRESCRIP TRANSMIT VIA ERX SY CPT-4: G8553 01/26/2013 ROUTINE VENIPUNCTURE CPT-4: 91906 01/23/2013 ROUTINE VENIPUNCTURE CPT-4: 93026 12/27/2012 PRESCRIP TRANSMIT VIA ERX SY CPT-4: G8553 12/27/2012 ROUTINE VENIPUNCTURE CPT-4: 23916 10/07/2012 PRESCRIP TRANSMIT VIA ERX SY CPT-4: G8553 09/21/2012 PRESCRIP TRANSMIT VIA ERX SY CPT-4: G8553 08/02/2012 TRIAMCINOLONE ACET INJ NOS CPT-4: J3301 06/27/2012 PRESCRIP TRANSMIT VIA ERX SY CPT-4: G8553 06/27/2012 TRIAMCINOLONE ACET INJ NOS CPT-4: J3301 06/06/2012 DRAIN/INJECT JOINT/BURSA CPT-4: 01425 06/06/2012 VITAMIN B12 INJECTION CPT-4: J3420 02/08/2012 URINALYSIS NONAUTO W/O SCOPE CPT-4: 15379 02/08/2012 ROUTINE VENIPUNCTURE CPT-4: 45078 02/01/2012 ROCEPHIN, PER 250 MG CPT-4: J0696 02/01/2012 PRESCRIP TRANSMIT VIA ERX SY CPT-4: G8553 02/01/2012 THER/PROPH/DIAG INJ SC/IM CPT-4: 63101 02/01/2012 ROUTINE VENIPUNCTURE CPT-4: 48966 01/22/2012 PRESCRIP TRANSMIT VIA ERX SY CPT-4: G8553 01/22/2012 TRIAMCINOLONE ACET INJ NOS CPT-4: J3301 10/19/2011 CA SCREEN;PELVIC/BREAST EXAM CPT-4: G0101 09/09/2011 KETOROLAC TROMETHAMINE INJ CPT-4: J1885 07/15/2011 THER/PROPH/DIAG INJ SC/IM CPT-4: 20054 07/15/2011 THER/PROPH/DIAG INJ SC/IM CPT-4: 06145 07/02/2011 KETOROLAC TROMETHAMINE INJ CPT-4: J1885 07/02/2011 KETOROLAC TROMETHAMINE INJ CPT-4: J1885 06/24/2011 THER/PROPH/DIAG INJ SC/IM CPT-4: 05823 06/24/2011 Vital Signs Date Vital 09/03/2017 Blood Pressure 1: 162/76 Code : 8480-6 BMI: 23.6 Code : 29164-8 Height: 5'5" Weight: 142 lbs 05/27/2017 Blood Pressure 1: 158/78 Code : 8480-6 BMI: 23.1 Code : 47477-5 Heart Rate 1 : 57 bpm Height: 5'5" SpO2: 99% Weight: 139 lbs 04/27/2017 Blood Pressure 1: 142/78 Code : 8480-6 Blood Pressure 1: 136/72 Code: 8480-6 BMI: 24.0 Code: 15425-6 Heart Rate 1: 69 bpm Height: 5'5" SpO2: 94% Weight: 144 lbs 03/09/2017 Blood Pressure 1: 138/80 Code : 8480-6 BMI: 23.5 Code : 75102-8 Heart Rate 1 : 76 bpm Height: 5'5" Weight: 141 lbs 4 oz 02/22/2017 Blood Pressure 1: 144/88 Code : 8480-6 BMI: 24.0 Code : 47333-6 Heart Rate 1 : 100 bpm Height: 5'5" SpO2: 92% Weight: 144 lbs 12/28/2016 Blood Pressure 1: 144/84 Code : 8480-6 BMI: 24.3 Code : 63127-3 Heart Rate 1 : 96 bpm Height: 5'5" SpO2: 97% Waist Measure (cm): 76 cm Weight: 146 lbs 12/24/2016 Blood Pressure 1: 148/86 Code : 8480-6 BMI: 24.3 Code : 09377-7 Heart Rate 1 : 93 bpm Height: 5'5" SpO2: 96% Weight: 146 lbs 10/06/2016 Blood Pressure 1: 144/72 Code : 8480-6 Heart Rate 1: 71 bpm Height: 5'5" SpO2: 98% 10/01/2016 Blood Pressure 1: 136/82 Code : 8480-6 Heart Rate 1: 62 bpm Height: 5'5" SpO2: 97% Weight: 09/01/2016 Blood Pressure 1: 130/66 Code : 8480-6 BMI: 23.8 Code : 56568-3 Heart Rate 1 : 70 bpm Height: 5'5" SpO2: 98% Weight: 143 lbs 08/11/2016 Blood Pressure 1: 140/80 Code : 8480-6 BMI: 24.0 Code : 64285-7 Height: 5'5" Weight: 144 lbs 8 oz 07/01/2016 Blood Pressure 1: 136/74 Code : 8480-6 BMI: 24.3 Code : 18612-4 Heart Rate 1 : 76 bpm Height: 5'5" SpO2: 97% Weight: 146 lbs 04/23/2016 Blood Pressure 1: 130/78 Code : 8480-6 BMI: 25.1 Code : 14411-9 Heart Rate 1 : 70 bpm Height: 5'5" SpO2: 97% Weight: 151 lbs 03/03/2016 Blood Pressure 1: 138/62 Code : 8480-6 BMI: 25.6 Code : 32392-2 Heart Rate 1 : 62 bpm Height: 5'5" SpO2: 99% Weight: 154 lbs 01/14/2016 Blood Pressure 1: 162/72 Code : 8480-6 BMI: 26.6 Code : 06906-3 Heart Rate 1 : 82 bpm Height: 5'5" SpO2: 98% Weight: 160 lbs 12/03/2015 Blood Pressure 1: 130/62 Code : 8480-6 BMI: 25.8 Code : 77453-2 Heart Rate 1 : 72 bpm Height: 5'5" SpO2: 98% Weight: 155 lbs 10/10/2015 Blood Pressure 1: 118/80 Code : 8480-6 BMI: 25.6 Code : 23235-9 Heart Rate 1 : 70 bpm Height: 5'5" SpO2: 98% Weight: 154 lbs 08/28/2015 Blood Pressure 1: 152/80 Code : 8480-6 BMI: 27.7 Code : 76001-3 Heart Rate 1 : 75 bpm Height: 5'5" SpO2: 98% Weight: 166 lbs 8 oz 06/12/2015 Blood Pressure 1: 142/64 Code : 8480-6 BMI: 27.5 Code : 16332-5 Heart Rate 1 : 66 bpm Height: 5'5" SpO2: 96% Weight: 165 lbs 05/09/2015 Blood Pressure 1: 122/70 Code : 8480-6 BMI: 27.3 Code : 21141-3 Heart Rate 1 : 69 bpm Height: 5'5" SpO2: 97% Weight: 164 lbs 04/12/2015 Blood Pressure 1: 122/62 Code : 8480-6 BMI: 27.6 Code : 17150-1 Heart Rate 1 : 69 bpm Height: 5'5" SpO2: 98% Weight: 166 lbs 03/12/2015 Blood Pressure 1: 108/70 Code : 8480-6 BMI: 26.8 Code : 34545-3 Heart Rate 1 : 73 bpm Height: 5'5" SpO2: 96% Weight: 161 lbs 01/08/2015 Blood Pressure 1: 136/76 Code : 8480-6 BMI: 28.8 Code : 14748-9 Heart Rate 1 : 73 bpm Height: 5'5" SpO2: 95% Weight: 173 lbs 10/04/2014 Blood Pressure 1: 138/86 Code : 8480-6 BMI: 29.0 Code : 67210-8 Heart Rate 1 : 76 bpm Height: 5'5" Weight: 174 lbs 09/10/2014 Blood Pressure 1: 110/60 Code : 8480-6 BMI: 29.6 Code : 29880-9 Heart Rate 1 : 75 bpm Height: 5'5" Weight: 178 lbs 08/06/2014 Blood Pressure 1: 138/78 Code : 8480-6 BMI: 28.6 Code : 42150-1 Heart Rate 1 : 76 bpm Height: 5'5" Weight: 172 lbs 07/12/2014 Blood Pressure 1: 126/82 Code : 8480-6 BMI: 28.5 Code : 43632-9 Heart Rate 1 : 72 bpm Height: 5'5" Weight: 171 lbs 05/16/2014 Blood Pressure 1: 110/62 Code : 8480-6 BMI: 29.0 Code : 35685-0 Heart Rate 1 : 74 bpm Height: 5'5" SpO2: 97% Weight: 174 lbs 04/05/2014 Blood Pressure 1: 142/80 Code : 8480-6 BMI: 29.6 Code : 12876-5 Heart Rate 1 : 60 bpm Height: 5'5" Weight: 178 lbs 03/05/2014 Blood Pressure 1: 118/70 Code : 8480-6 BMI: 30.8 Code : 63799-6 Heart Rate 1 : 64 bpm Height: 5'5" Weight: 185 lbs 02/01/2014 Blood Pressure 1: 118/60 Code : 8480-6 BMI: 30.6 Code : 18669-8 Heart Rate 1 : 60 bpm Height: 5'5" Weight: 184 lbs 12/07/2013 Blood Pressure 1: 106/58 Code : 8480-6 Heart Rate 1: 64 bpm Weight: 185 lbs 09/25/2013 Blood Pressure 1: 120/68 Code : 8480-6 BMI: 30.6 Code : 42978-9 Heart Rate 1 : 72 bpm Height: 5'5" Weight: 184 lbs 09/04/2013 Blood Pressure 1: 124/80 Code : 8480-6 BMI: 30.3 Code : 41553-9 Height: 5'5" Weight: 182 lbs 05/18/2013 Blood Pressure 1: 126/70 Code : 8480-6 Weight: 174 lbs 04/18/2013 Blood Pressure 1: 120/68 Code : 8480-6 BMI: 28.6 Code : 89139-3 Heart Rate 1 : 64 bpm Height: 5'5" Weight: 172 lbs 03/16/2013 Blood Pressure 1: 134/60 Code : 8480-6 BMI: 28.6 Code : 58894-2 Heart Rate 1 : 96 bpm Height: 5'5" Weight: 172 lbs 01/26/2013 Blood Pressure 1: 128/82 Code : 8480-6 BMI: 29.6 Code : 29870-5 Heart Rate 1 : 72 bpm Height: 5'5" Weight: 178 lbs 12/27/2012 Blood Pressure 1: 148/82 Code : 8480-6 Heart Rate 1: 76 bpm Weight: 179 lbs 10/11/2012 Blood Pressure 1: 130/80 Code : 8480-6 BMI: 30.5 Code : 03155-7 Heart Rate 1 : 68 bpm Height: 5'5" Weight: 183 lbs 09/21/2012 Blood Pressure 1: 142/86 Code : 8480-6 Heart Rate 1: 80 bpm Weight: 182 lbs 08/02/2012 Blood Pressure 1: 144/72 Code : 8480-6 Heart Rate 1: 72 bpm Temperature: 36.8 (C) / 98.2 (F) Weight: 179 lbs 06/27/2012 Blood Pressure 1: 136/84 Code : 8480-6 BMI: 29.5 Code : 95765-9 Heart Rate 1 : 68 bpm Height: 5'5" Respiratory Rate: 16 bpm Weight: 177 lbs 06/06/2012 Blood Pressure 1: 144/80 Code : 8480-6 BMI: 30.6 Code : 50032-4 Heart Rate 1 : 76 bpm Height: [...] Code : 8480-6 BMI: 31.1 Code : 25844-2 Heart Rate 1 : 78 bpm Height: 5'5" Weight: 187 lbs 10/19/2011 Blood Pressure 1: 112/60 Code : 8480-6 Heart Rate 1: 80 bpm SpO2: 97% Temperature: 36.7 (C) / 98.0 (F) Weight: 188 lbs 09/09/2011 Blood Pressure 1: 130/70 Code : 8480-6 BMI: 31.1 Code : 56700-3 Heart Rate 1 : 66 bpm Height: 5'5" Weight: 187 lbs 08/13/2011 Blood Pressure 1: 116/70 Code : 8480-6 BMI: 30.6 Code : 18057-1 Heart Rate 1 : 64 bpm Height: 5'5" Respiratory Rate: 20 bpm Weight: 184 lbs 07/02/2011 Blood Pressure 1: 112/60 Code : 8480-6 BMI: 30.4 Code : 68648-6 Heart Rate 1 : 66 bpm Height: 5'5" Respiratory Rate: 12 bpm Weight: 182 lbs 8 oz 06/24/2011 Blood Pressure 1: 127/58 Code : 8480-6 Heart Rate 1: 84 bpm Weight: 04/16/2011 Blood Pressure 1: 120/78 Code : 8480-6 BMI: 30.8 Code : 13556-8 Heart Rate 1 : 76 bpm Height: [...] pain Location diffusely 04/18/2013 having epidurals in [place], concerned because they didn't do mri of [...] weeks along. 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 PATIENT, LEVEL III Diagnosis: Essential (primary) hypertension[ICD10: I10] Diagnosis: Chronic pain syndrome[ICD10: G89.4] [facility] CPT-4: 64639 09/03/2017 ([id number]) 34524 EST. 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 PATIENT, LEVEL IV Diagnosis: Vitamin B12 deficiency anemia, unspecified[ICD10: D51.9] Diagnosis: Essential (primary) hypertension[ICD10: I10] Diagnosis: Chronic pain syndrome[ICD10: G89.4] Diagnosis: Major depressive disorder, recurrent, moderate[ICD10: F33.1] Diagnosis: Vitamin B12 deficiency anemia due to intrinsic factor deficiency[ ICD10: D51.0] Rachael Newby MD [facility] CPT-4: 01949 04/27/2017 ([id number]) 50237 EST. PATIENT, LEVEL IV Diagnosis: Essential (primary) hypertension[ICD10: I10] Diagnosis: Other specified polyneuropathies[ICD10: G62.89] Rachael Newby MD [facility] CPT-4: 93462 03/09/2017 ([id number]) 15394 EST. PATIENT, LEVEL III Diagnosis: Essential (primary) hypertension[ICD10: I10] Diagnosis: Chronic pain syndrome[ICD10: G89.4] Diagnosis: Dysuria[ICD10: R30.0] Diagnosis: Allergic rhinitis due to pollen[ICD10: J30.1] Rachael Newby MD [facility] CPT-4: 89308 02/22/2017 ([id number]) 62013 EST. PATIENT, LEVEL IV Diagnosis: Dysuria[ICD10: R30.0] Diagnosis: Urinary tract infection, site not specified[ICD10: N39.0] Diagnosis: Chronic pain syndrome[ICD10: G89.4] Rachael Newby MD, [facility] CPT-4: 27035 12/24/2016 ([id number]) 65411 EST. PATIENT, LEVEL III Diagnosis: Allergic urticaria[ICD10: L50.0] Jillian Newby MD [facility] CPT-4: 69433 10/06/2016 ([id number]) 73923 EST. PATIENT, LEVEL IV Diagnosis: Essential (primary) hypertension[ICD10: I10] Diagnosis: Generalized anxiety disorder[ICD10: F41.1] Rachael Newby MD [facility] CPT-4: 97955 10/01/2016 ([id number]) 53944 EST. PATIENT, LEVEL III Diagnosis: Displaced fracture of fifth metatarsal bone, left foot, initial encounter for closed fracture[ICD10: S92.352A] Diagnosis: Essential (primary) hypertension[ICD10: I10] Rachael Newby MD, [facility] CPT-4: 01450 09/01/2016 ([id number]) 85985 EST. PATIENT, LEVEL IV Diagnosis: Essential (primary) hypertension[ICD10: I10] Diagnosis: Chronic pain syndrome[ICD10: G89.4] Diagnosis: Vitamin B12 deficiency anemia, unspecified[ICD10: D51.9] Diagnosis: Vitamin D deficiency, unspecified[ICD10: E55.9] Diagnosis: Anemia, unspecified[ICD10: D64.9] Jillian Newby MD, [facility] CPT-4: 67503 08/11/2016 ([id number]) 77173 EST. PATIENT, LEVEL III Diagnosis: Chronic pain syndrome[ICD10: G89.4] Diagnosis: Rash and other nonspecific skin eruption[ICD10: R21] Rachael Newby MD, [facility] CPT-4: 74563 07/01/2016 ([id number]) 00670 EST. PATIENT, LEVEL IV Diagnosis: Vitamin B12 deficiency anemia, unspecified[ICD10: D51.9] Diagnosis: Anemia, unspecified[ICD10: D64.9] Diagnosis: Essential (primary) hypertension[ICD10: I10] Rachael Newby MD, [facility] CPT-4: 90636 04/23/2016 ([id number]) 56992 EST. PATIENT, LEVEL III Diagnosis: Essential (primary) hypertension[ICD10: I10] Diagnosis: Dysuria[ICD10: R30.0] Diagnosis: Chronic pain syndrome[ICD10: G89.4] Rachael Newby MD, [facility] CPT-4: 02332 03/03/2016 ([id number]) 78353 EST. PATIENT, LEVEL III Diagnosis: Generalized anxiety disorder[ICD10: F41.1] Diagnosis: Other specified dermatitis[ICD10: L30.8] Rachael Newby MD, [facility] CPT-4: 85397 01/14/2016 73339 EST. PATIENT, LEVEL III Diagnosis: Encounter for follow-up examination after completed treatment for conditions other than malignant neoplasm[ICD10: Z09] Diagnosis: Family history of malignant neoplasm of digestive organs[ICD10: Z80.0 ] Diagnosis: Vitamin B12 deficiency anemia, unspecified[ICD10: D51.9] Brina Newby MD, [facility] CPT-4: 64458 12/03/2015 ([id number]) 77621 EST. PATIENT, LEVEL IV Diagnosis: Essential (primary) hypertension[ICD10: I10] Diagnosis: Anemia, unspecified[ICD10: D64.9] Diagnosis: Mixed hyperlipidemia[ICD10: E78.2] Diagnosis: Gastro-esophageal reflux disease without esophagitis[ICD10: K21.9] Rachael Newby MD [facility] CPT-4: 64237 10/10/2015 ([id number]) 01487 EST. PATIENT, LEVEL IV Diagnosis: Essential (primary) hypertension[ICD10: I10] Diagnosis: Generalized anxiety disorder[ICD10: F41.1] Diagnosis: Pain in right shoulder[ICD10: M25.511] Rachael Newby MD [facility] CPT-4: 82161 08/28/2015 ([id number]) 95368 EST. PATIENT, LEVEL IV Diagnosis: Other constipation[ICD10: K59.09] Diagnosis: Chronic pain syndrome[ICD10: G89.4] Diagnosis: Essential (primary) hypertension[ICD10: I10] Diagnosis: Frequency of micturition[ICD10: R35.0] Rachael Newby MD [facility] CPT-4: 14129 06/12/2015 ([id number]) 99802 EST. PATIENT, LEVEL IV Diagnosis: OTHER CONSTIPATION[ICD9: 564.09] Diagnosis: ESSENTIAL HYPERTENSION[ICD9: 401.9] Rachael Newby MD [facility] CPT-4: 62721 05/09/2015 ([id number]) 39395 EST. PATIENT, LEVEL IV Diagnosis: Abdominal pain[ICD9: 789.00] Diagnosis: Vitamin D deficiency[ICD9: 268.9] Diagnosis: Vitamin B 12 deficiency[ICD9: 266.2] Diagnosis: Peripheral neuropathy[ICD9: 356.9] Diagnosis: ESSENTIAL HYPERTENSION[ICD9: 401.9] Diagnosis: Anxiety, generalized[ICD9: 300.02] Rachael Newby MD, [facility] CPT-4: 59983 04/12/2015 ([id number]) 53770 EST. PATIENT, LEVEL IV Diagnosis: Hemorrhoids[ICD9: 455.6] Diagnosis: Blood in stool[ICD9: 578.1] Diagnosis: Weight loss[ICD9: 783.21] Diagnosis: ESSENTIAL HYPERTENSION[ICD9: 401.9] Jillian Newby MD [facility] CPT-4: 93654 03/12/2015 ([id number]) 87252 EST. PATIENT, LEVEL IV Diagnosis: Heart murmur[ICD9: 785.2] Diagnosis: Aortic regurgitation[ICD9: 424.1] Diagnosis: ESSENTIAL HYPERTENSION[ICD9: 401.9] Diagnosis: CHRONIC PAIN SYNDROME[ICD9: 338.4] Diagnosis: Fatigue[ICD9: 780.79] Diagnosis: MYALGIA AND MYOSITIS[ICD9: 729.1] Diagnosis: Vitamin B 12 deficiency[ICD9: 266.2] Rachael Newby MD, [facility] CPT-4: 10261 01/08/2015 ([id number]) 97522 EST. PATIENT, LEVEL III Diagnosis: ACUTE URI[ICD9: 465.9] Diagnosis: Vitamin B 12 deficiency[ICD9: 266.2] Rachael Newby MD [facility] CPT-4: 70860 10/04/2014 ([id number]) 47184 EST. PATIENT, LEVEL IV Diagnosis: ESSENTIAL HYPERTENSION[ICD9: 401.9] Diagnosis: Vitamin B 12 deficiency[ICD9: 266.2] Diagnosis: Esophageal reflux[ICD9: 530.81] Rachael Newby MD [facility] CPT- 4: 84954 09/10/2014 ([id number]) 98024 EST. PATIENT, LEVEL III Diagnosis: ESSENTIAL HYPERTENSION[ICD9: 401.9] Diagnosis: ACUTE URI[ICD9: 465.9] Rachael Newby MD, [facility] CPT-4: 59295 08/06/2014 ([id number]) 23105 EST. PATIENT, LEVEL III Diagnosis: Vitamin B 12 deficiency[ICD9: 266.2] Diagnosis: CHRONIC PAIN SYNDROME[ICD9: 338.4] Diagnosis: ESSENTIAL HYPERTENSION[ICD9: 401.9] Rachael Newby MD [facility] CPT-4: 83262 07/12/2014 ([id number]) 34865 EST. PATIENT, LEVEL IV Diagnosis: Anxiety, generalized[ICD9: 300.02] Diagnosis: Insomnia[ICD9: 780.52] Diagnosis: VACCIN FOR INFLUENZA[ICD10: Z23] Diagnosis: Vitamin B 12 deficiency[ICD9: 266.2] Rachael Newby MD, [facility] CPT-4: 91650 05/16/2014 ([id number]) 41626 EST. PATIENT, LEVEL III Diagnosis: ESSENTIAL HYPERTENSION[ICD9: 401.9] Diagnosis: Vitamin B 12 deficiency[ICD9: 266.2] Diagnosis: Insomnia[ICD9: 780.52] Rachael Newby MD, [facility] CPT-4: 70294 04/05/2014 ([id number]) 78454 EST. PATIENT, LEVEL IV Diagnosis: ESSENTIAL HYPERTENSION[ICD9: 401.9] Diagnosis: DEPRESSIVE DISORDER NEC[ICD9: 311] Diagnosis: MYALGIA AND MYOSITIS[ICD9: 729.1] Rachael Newby MD, [facility] CPT-4: 23211 03/05/2014 ([id number]) 10091 EST. PATIENT, LEVEL III Diagnosis: Dyshidrotic eczema[ICD9: 705.81] Diagnosis: B-COMPLEX DEFIC NEC[ICD9: 266.2] Jillian Newby MD, [facility] CPT-4: 79746 02/01/2014 ([id number]) 21638 EST. PATIENT, LEVEL III Diagnosis: Rash[ICD9: 782.1] Diagnosis: ESSENTIAL HYPERTENSION[SNOMED: 49348025] Jillian Newby MD, [facility] CPT-4: 18828 12/07/2013 ([id number]) 54330 EST. PATIENT, LEVEL IV Diagnosis: ESSENTIAL HYPERTENSION[SNOMED: 90543290] Diagnosis: MYALGIA AND MYOSITIS[ICD9: 729.1] Diagnosis: DEPRESSIVE DISORDER NEC[ICD9: 311] Diagnosis: Dietary counseling[ICD9: V65.3] Rachael Newby MD, [facility] CPT- 4: 44770 09/25/2013 ([id number]) 71976 EST. PATIENT, LEVEL IV Diagnosis: ESSENTIAL HYPERTENSION[SNOMED: 69896883] Diagnosis: DEPRESSIVE DISORDER NEC[ICD9: 311] Diagnosis: Fatigue[ICD9: 780.79] Rachael Newby MD, [facility] CPT-4: 38914 09/04/2013 ([id number]) 71377 EST. PATIENT, LEVEL III Diagnosis: Back pain[ICD9: 724.5] Rachael Nebwy MD [facility] CPT-4: 07514 05/18/2013 ([id number]) 04427 EST. PATIENT, LEVEL III Diagnosis: ESSENTIAL HYPERTENSION[SNOMED: 02863698] Diagnosis: Sacroiliitis[ICD9: 720.2] Diagnosis: Sleep apnea[ICD9: 780.57] Rachael Newby MD [facility] CPT-4: 59823 04/18/2013 ([id number]) 95446 EST. PATIENT, LEVEL IV Diagnosis: ESSENTIAL HYPERTENSION[SNOMED: 07892580] Diagnosis: Fatigue[ICD9: 780.79] Diagnosis: Snoring disorder[ICD9: 786.09] Rachael Newby MD [facility] CPT- 4: 24294 03/16/2013 ([id number]) 32833 EST. PATIENT, LEVEL III Diagnosis: CELLULITIS OF NECK[ICD9: 682.1] Diagnosis: CELLULITIS OF TRUNK[ICD9: 682.2] Rachael Newby MD, [facility] CPT-4: 51930 01/26/2013 ([id number]) 03713 EST. PATIENT, LEVEL III Diagnosis: ESSENTIAL HYPERTENSION[SNOMED: 35159868] Diagnosis: CELLULITIS, FINGER[ICD9: 681.00] Diagnosis: ENCNTR LONG-RX USE NEC[ICD9: V58.69] Diagnosis: Vitamin B 12 deficiency[ICD9: 266.2] Diagnosis: JOINT PAIN-HAND[ICD9: 719.44] Jillian Newby MD, [facility] CPT-4: 21302 12/27/2012 ([id number]) 50350 EST. PATIENT, LEVEL IV Diagnosis: ESSENTIAL HYPERTENSION[SNOMED: 74108302] Diagnosis: HYPERLIPIDEMIA[ICD9: 272.4] Diagnosis: MYALGIA AND MYOSITIS[ICD9: 729.1] Rachael Newby MD, [facility] CPT-4: 43202 10/11/2012 ([id number]) 07886 EST. PATIENT, LEVEL IV Diagnosis: ESSENTIAL HYPERTENSION[SNOMED: 65244809] Diagnosis: Anxiety, generalized[ICD9: 300.02] Diagnosis: Fatigue[ICD9: 780.79] Diagnosis: Depression[ICD9: 311] Rachael Newby MD, [facility] CPT-4: 55755 09/21/2012 ([id number]) 70846 EST. PATIENT, LEVEL III Diagnosis: Dental abscess[ICD9: 522.5] Diagnosis: ACUTE MAXILLARY SINUSITIS[ICD9: 461.0] Rachael Newby MD, [facility] CPT-4: 32565 08/02/2012 ([id number]) 89402 EST. PATIENT, LEVEL III Diagnosis: SACROILIITIS NEC[ICD9: 720.2] Diagnosis: CHRONIC PAIN SYNDROME[ICD9: 338.4] Rachael Newby MD, [facility] CPT-4: 16473 06/27/2012 ([id number]) 62633 EST. PATIENT, LEVEL IV Diagnosis: ESSENTIAL HYPERTENSION[SNOMED: 54553696] Diagnosis: Tennis elbow[ICD9: 726.32] Diagnosis: Neck pain on right side[ICD9: 723.1] Rachael Newby MD, [facility] CPT-4: 55281 06/06/2012 ([id number]) 26152 EST. PATIENT, LEVEL IV Diagnosis: Esophageal reflux[ICD9: 530.81] Diagnosis: Cervicalgia[ICD9: 723.1] Diagnosis: Medial epicondylitis[ICD9: 726.31] Jillian Newby MD, [facility] CPT-4: 03646 05/16/2012 ([id number]) 27081 EST. PATIENT, LEVEL IV Diagnosis: EDEMA[ICD9: 782.3] Diagnosis: Chronic pain disorder[ICD9: 338.4] Diagnosis: DEPRESSIVE DISORDER NEC[ICD9: 311] Diagnosis: MALAISE AND FATIGUE[ICD9: 780.79] Rachael Newby MD, [facility] CPT-4: 42637 02/29/2012 ([id number]) 08095 EST. PATIENT, LEVEL IV Diagnosis: ANEMIA[ICD9: 285.9] Diagnosis: Fatigue[ICD9: 780.79] Rachael Newby MD, [facility] CPT-4: 72893 02/08/2012 ([id number]) 15069 EST. PATIENT, LEVEL IV Diagnosis: Acute renal failure[ICD9: 584.9] Diagnosis: Fatigue[ICD9: 780.79] Diagnosis: Myalgia[ICD9: 729.1] Rachael Newby MD, [facility] CPT-4: 91619 02/01/2012 ([id number]) 75635 EST. PATIENT, LEVEL III Diagnosis: Oral aphthae[ICD9: 528.2] Diagnosis: Fatigue[ICD9: 780.79] Diagnosis: History of iron deficiency anemia[ICD9: V12.3] Diagnosis: HYPERLIPIDEMIA[ICD9: 272.4] Diagnosis: ESSENTIAL HYPERTENSION[SNOMED: 75346710] Jillian Newby MD, [facility] CPT-4: 43737 01/22/2012 ([id number]) 39476 EST. PATIENT, LEVEL III Diagnosis: ACUTE SINUSITIS[ICD9: 461.9] Jillian Newby MD, [facility] CPT-4: 37657 10/19/2011 ([id number]) 85428 EST. PATIENT, LEVEL III Diagnosis: ACUTE SINUSITIS[ICD9: 461.9] Diagnosis: JOINT PAIN-L/LEG[ICD9: 719.46] Rachael Newby MD, [facility] CPT- 4: 21306 08/13/2011 75808 EST. PATIENT, LEVEL III Diagnosis: JOINT PAIN-L/LEG[ICD9: 719.46] Diagnosis: Primary localized osteoarthrosis of the knee[ICD9: 715.16] Rachael Newby MD , [facility] CPT-4: 65767 07/02/2011 04627 EST. PATIENT, LEVEL III Diagnosis: Knee pain, left[ICD9: 719.46] Diagnosis: Fall from slipping[ICD9: E885.9] Jillian Newby MD, [facility] CPT-4: 57563 06/24/2011 59863 EST. PATIENT, LEVEL III Diagnosis: Aphthous ulcer[ICD9: 528.2] Rachael Newby MD, [facility] CPT- 4: 10156 04/16/2011 Plan of Care Planned Activity Notes Codes Status Date Visit Plan: Hypertension - uncontrolled - the [...] home. Chronic pain - refilled hydrocodone. 09/03/2017 Patient Education: Patient Medication Summary Completed 09/03/2017 Appointment: Rachael Newby WPtel: [phone] [facility] (15 min) Moderate 08/26/2017 Appointment: Rachael Newby WPtel: [phone] [facility] (15 min) Moderate 07/14/2017 Visit Plan: Peripheral [...] current medications. 05/27/2017 Appointment: Rachael Newby WPtel: [facility] (15 min) Moderate 05/27/2017 Patient Education: Patient [...] Appointment: Injection 04/27/2017 Appointment[phone] ([facility] min) Moderate 04/27/2017 Patient Education: Patient [...] Summary Completed 03/09/2017 Appointment: [phone] [facility] (15 min) Moderate 02/25/2017 Visit Plan: Hypertension [...] shot today 02/22/2017 Appointment: [facility] New[facility]Ptel[phone] [facility] (15 min) Moderate 02/22/2017 Patient Education: Patient [...] care surrogate. 12/28/2016 [facility]ment[phone] [facility] - Annual Wellness Visit 12/28/2016 [...] are finished. 12/24/2016 Appointment: [facility] Newby [facility]Ptel[phone] [facility] (15 min) Moderate 12/24/2016 Patient Education: Patient Medication Summary Completed 12/24/2016 Appointment: [phone] [facility] [facility] - Annual Wellness Visit 11/26/2016 Appointment: Injection 10/14/2016 Patient Education: Patient Medication Summary Completed 10/14/2016 Visit Plan: Hives-short course of prednisone-start claritin and pepcid as directed-call if symptoms do not resolve or if any worse. Patient verbalized understanding of plan. 10/06/2016 Appointment: Jill[facility] Dalal [phone] [phone] [place] (30 min) Complex 10/06/2016 Patient Education: Patient [...] current medications. 10/01/2016 Appointment: [facility] New[facility]el[phone] [facility] [place] (15 min) Moderate 10/01/2016 Patient Education: Patient Medication Summary Completed 10/01/2016 Appointment: Deirdre 09/16/2016 Patient Education: Patient Medication Summary Completed [...] at home. 09/01/2016 Appointment: [facility] New[facility]Ptel: [phone] [facility] [place] (15 min) Moderate 09/01/2016 Patient Education: Patient Medication Summary Completed 09/01/2016 Care Plan: Referral Order SNOMED-CT : 295694177 Pending 09/01/2016 Visit Plan: Hypertension - well [...] deficiency-check level Aortic regurg-diastolic dysfuction-ef 50% in 2011-needs echo and cardiology follow up-will schedule with Dr Palacio 08/11/2016 Appointment: Jillian Dalal WPtel: [phone] [phone] [place] (15 min) Moderate 08/11/2016 Patient Education: Patient Medication Summary Completed 08/11/2016 Care Plan: Referral Order SNOMED-CT : 628392810 Pending 08/11/2016 Visit Plan: Chronic Pain Syndrome - pt has chronic pain - has been maintained on current medications, has not sought out other medications , only uses PRN pain medications as directed, and understands the consequences of over-medication. RX for Efudex to be used on hands until lesions healed 07/01/2016 Appointment: Rachael Newby WPtel: [facility] [place] (15 min) Moderate 07/01/2016 Patient Education: Patient [...] iron orally. 04/23/2016 Appointment: Rachael Newby WPtel: [facility] [place] (15 min) Moderate 04/23/2016 Patient Education: Patient [...] Summary Completed 03/03/2016 Appointment: Rachael Newby WPtel: [facility] (15 min) Moderate 02/17/2016 Visit Plan: Rash - Rx for betamethasone for the rash on left lateral lower leg and right hand on dorsum over digits #3/4. Anxiety - uncontrolled - RX for buspar. 01/14/2016 Patient Education: Patient Medication Summary Completed 01/14/2016 Appointment: Rachael Newby WPtel: [phone] [facility] (15 min) Moderate 01/13/2016 Visit Plan: Hospital [...] appropriate testing. 12/03/2015 Appointment: Jillian Dalal WPtel: [phone] [phone] [place] (15 min) Moderate 12/03/2015 Patient Education: [...] of over-medication. 10/10/2015 Appointment: Rachael Newby WPtel: [phone] [facility] (15 min) Moderate 10/10/2015 Patient Education: Patient [...] on her shoulder from Dr. Paz in [place]. 08/28/2015 Patient Education: Patient Medication Summary Completed 08/28/2015 Patient Education: Hypertension Completed 08/28/2015 Appointment: Rachael Newby WPtel: [facility] (15 min) Moderate 08/07/2015 Visit Plan: Hypertension [...] medication. 06/12/2015 Appointment: Rachael Newby WPtel: [phone] [facility] (15 min) Moderate 06/12/2015 Patient Education: Patient [...] this regimen. 05/09/2015 Appointment: Rachael Newby WPtel: [facility] (15 min) Moderate 05/09/2015 Patient Education: Patient [...] 04/12/2015 Care Plan: CT ABD & PELV /> [facility] : 49574-7 Ordered 04/12/2015 Visit Plan: Hypertension - well controlled - continue with current medications, continue with no added salt diet. Pt has been encouraged to exercise daily. The pt has been advised to call the office if there are any acute concerns about change in blood pressure readings at home. Black stool- check stools Hemorrhoid-RX for anusol suppositories and instructed on use Weight cxgn-llzpofcchrsok-mrzvh stools and labs-refer to Dr Riddle if [...] ESR, CRP. 01/08/2015 Appointment: Rachael Newby WPtel: [phone] [place] [phone] Follow up 01/08/2015 Patient Education: Patient Medication Summary Completed 01/08/2015 Patient Education: Hypertension Completed 01/08/2015 Care Plan: Referral Order SNOMED-CT : [id number] Ordered 01/08/2015 Appointment: Injection 11/28/2014 Patient Education: Patient Medication Summary Completed 11/28/2014 Patient Education: Patient Medication Summary Completed 10/15/2014 Care Plan: [facility] : 08459-5 Ordered 10/15/2014 Visit Plan: URI - Pt advised to increase fluids, vitamin C. Discussed natural and expected course of this diagnosis and need to alert me if symptoms do not follow expected course, or if any worse. RX sent to patient' s pharmacy. 10/04/2014 Appointment: Rachael Newby WPtel: [phone] [facility] [facility] 10/04/2014 Patient Education: Patient Medication Summary [...] today 09/10/2014 Appointment: [facility] New[facility]Ptel: [phone] [facility] [place] Follow up 09/10/2014 Patient Education: Patient Medication [...] given today 08/06/2014 Appointment: [facility]achael Newby WPtel: [phone] [facility] [place] called and confirmed appt Follow up [...] , and understands the consequences of over-medication. DCS-SZX-kwbrn follow up with cardiology-patient wants to wait until after holidays-does not want to go back to Dr Wong-refer to Dr Tenorio-patient is going to call us when she gets home. 07/12/2014 Appointment: Sick 07/12/2014 Patient Education: Patient Medication Summary Completed 07/12/2014 Patient Education: Hypertension Completed 07/12/2014 Patient Education: Patient Medication Summary Completed 06/28/2014 Appointment: Rachael Newby WPtel: [phone] [facility] [place] Injection 06/14/2014 Patient Education: Patient Medication Summary Completed 06/14/2014 Appointment: Rachael Newby WPtel: [phone] [facility] [place] Injection 05/31/2014 Patient Education: Patient Medication Summary Completed 05/31/2014 Appointment: Rachael Newby WPtel: [phone] [facility] [place] Injection 05/23/2014 Visit Plan: Anxiety - [...] insomnia. 05/16/2014 Appointment: Rachael Newby WPtel: [phone] [facility] Follow up 05/16/2014 Patient Education: Patient Medication [...] myalgias improve. 03/05/2014 Appointment: Rachael Newby WPtel: [phone] [facility] [place] Follow up 03/05/2014 Patient Education: Patient Medication Summary Completed 03/05/2014 Patient Education: Hypertension Completed 03/05/2014 Visit Plan: Dyshidrotic eczema-RX for betamethasone cream- discussed natural and expected course of this diagnosis and to alert me if symptoms do not follow expected course, or if any worse. RX sent to patient's pharmacy. Patient verbalized understanding of plan. 02/01/2014 Appointment: Jillian Dalal WPtel: [phone] Follow up 02/01/2014 Patient Education: Patient Medication Summary Completed 02/01/2014 Appointment: Jillian Dalal WPtel: [phone] [place] Injection 12/29/2013 Patient Education: Patient Medication Summary Completed 12/29/2013 Appointment: Rachael Newby WPtel: [facility] [place] Injection 12/27/2013 Visit Plan: Rash-RX sent to patient's pharmacy-keep hands clean and dry-call next week with update on symptoms HTN-well controlled-CAD- diastolic dysfunction-no recent cardiology follow up and significant heart murmur-recommend appointment with Dr Wong. 12/07/2013 Appointment: Jillian Dalal WPtel: [phone] [place] rash 12/07/2013 Patient Education: Patient Medication Summary [...] muscle aches. 09/25/2013 Appointment: Rachael Newby WPtel: [address] [place], [place] [phone] Follow up 09/25/2013 Patient Education: Patient Medication Summary Completed 09/25/2013 Patient Education: .Amazing charts Diabetic meal planning guide Completed 09/25 Patient Education: Hypertension Completed 09/25/2013 Appointment: Rachael Newby WPtel: [address] [place], [place] [phone] Lab Draw 09/05/2013 Visit Plan: Hypertension - [...] vitamin d 09/04/2013 Appointment: Rachael Newby WPtel: [address] [place], [place] [phone] Follow up 09/04/2013 Patient Education: Patient Medication Summary Completed 09/04/2013 Patient Education: Hypertension Completed 09/04/2013 Appointment: Rachael Newby WPtel: [address] [place], [place] [phone] Follow up 08/29/2013 Visit Plan: Sacroilitis - shots in SI joints today - back exercises discussed with the patient, pt to continue with antiinflammatories. Pt is to call if the symptoms do not improve or if they worsen. 05/18/2013 Appointment: Rachael Newby WPtel: [phone] [facility] [place] Follow up 05/18/2013 Patient Education: Patient Medication [...] acute pain-recommend f/u with Dr Marin at [address] 04/18/2013 Appointment: Jillian Dalal WPtel: [phone] [phone] Follow up 04/18/2013 Patient Education: Patient Medication Summary Completed 04/18/2013 Patient Education: Hypertension Completed 04/18/2013 Appointment: Rachael Newby WPtel: [facility] Follow up 04/13/2013 Visit Plan: Hypertension - [...] SLEEP STUDY. 03/16/2013 Appointment: Rachael Newby WPtel: [phone] [facility] Follow up 03/16/2013 Patient Education: Patient Medication Summary Completed 03/16/2013 Patient Education: Hypertension Completed 03/16/2013 Appointment: Rachael Newby WPtel: [phone] [facility] Follow up 02/28/2013 Visit Plan: Cellulitis - continue with oral antibiotics as previously directed, return to clinic as previously directed, call for acute change in symptoms, worsening redness, warmth, discharge. 01/26/2013 Appointment: KeyonnaRachael WPtel: [facility] Other 01/26/2013 Patient Education: Patient Medication Summary [...] acute concerns. 12/27/2012 [facility]ment[phone] [place] rash 12/27/2012 Patient Education: Patient [...] not improve. 10/11/2012 Appointment: Rachael Newby WPtel: [facility] Follow up 10/11/2012 Patient Education: Patient Medication Summary Completed 10/11/2012 Patient Education: Hypertension Completed 10/11/2012 Appointment: Jillian Dalal WPtel: [phone] [place] Lab Draw 10/07/2012 Patient Education: Patient Medication Summary Completed 10/07/2012 Patient Education: Hypertension Completed 10/07/2012 Appointment: Rachael Newby WPtel: [facility] [place] Lab Draw 09/26/2012 Visit Plan: Hypertension [...] - tomorrow 09/21/2012 Appointment: Rachael Newby WPtel: [phone] [facility] [place] Follow up 09/21/2012 Patient Education: Patient Medication Summary Completed 09/21/2012 Patient Education: Hypertension Completed 09/21/2012 Visit Plan: Dental abcess- Sinusitis- pt to start on clindamycin and flagyl, use sinus rinse, and see dentist [facility] 08/02/2012 Appointment: Rachael Newby WPtel: [phone] [facility] Sick 08/02/2012 Patient Education: Patient Medication Summary Completed 08/02/2012 Visit Plan: Sacroilitis - Pt is unable to use oral antiinflammatories of the NSAID variety due to compromised renal function, therefore, until she is able to receive injections from the specialist at [facility] [address] [place] [address], she will be on a steroid taper. Back and leg pain - steroid shot today - pt to see specialist for epidural and SI joint injections [facility] 06/27/2012 Appointment: Rachael Newby WPtel: [phone] [facility] Follow up 06/27/2012 Patient Education: Patient Medication [...] the right. 06/06/2012 Appointment: Rachael Newby WPtel: [facility] Follow up 06/06/2012 Patient Education: Patient Medication [...] of plan. 05/16/2012 Appointment: Jillian Dalal WPtel: [phone] [id number] Other 05/16/2012 Patient Education: Patient Medication Summary Completed 05/16/2012 Visit Plan: Edema has improved - continue with current treatment, low sodium diet, call for any acute changes in the symptoms. Pt is planning a trip to [place] soon and I have encouraged her to [...] pressure medication. 02/29/2012 Appointment: Rachael Newby WPtel: [facility] [place] Follow up 02/29/2012 Patient Education: Patient Medication [...] supplements daily. 02/08/2012 Appointment: Rachael Newby WPtel: [phone] [facility] [place] Follow up 02/08/2012 Patient Education: Patient Medication [...] renal function. 02/01/2012 Appointment: [phone] [place] Other 02/01/2012 Patient Education: Patient Medication [...] at home. 01/22/2012 Appointment: [phone] [place] Other 01/22/2012 Patient Education: Patient Medication [...] and plan.. 09/09/2011 Appointment: Rachael Newby WPtel: [facility]7 [facility]66[facility] 09/09/2011 Patient Education: Patient Medication Summary Completed 09/09/2011 Appointment: Rachael Newby WPtel: [facility]6 [facility] Pap Only 09/03/2011 Visit Plan: Sinusitis - [...] for removal. 07/02/2011 Appointment: Rachael Newby WPtel: [facility] Other 07/02/2011 Patient Education: Patient Medication Summary [...] or worsen. 06/24/2011 Appointment: Jillian Dalal WPtel: [phone] Other 06/24/2011 Patient Education: Patient Medication Summary Completed 06/24/2011 Visit Plan: Apthous ulcer-take the acyclovir as directed. QID x 7 days, then bid x 1 month. Pt advised to stop eating acidic foods, stop drinking pop, start on a multivitamin. 04/16/2011 Appointment: Rachael Newby WPtel: [facility]5 [address] Other 04/16/2011 Patient Education: Patient Medication Summary Completed 04/16/2011 Referral: Yandel Hernandez Referral Appointment Requested Referral: Dago Tenorio WPtel: [phone] Referral Completed Instructions Comment hold LIPITOR x [...] directed, and understands the consequences of over-medication. [id number]-[id number] follow up with cardiology-patient wants to wait [...] anusol suppositories and instructed on use Weight impq-jwvwlpxugtthq-cgaco stools and labs-refer to Dr Riddle if indicated Cosmo Paz MD - Orthopedic surgeon in [facility] - consider this for possible surgery [...] on her shoulder from Dr. Paz in [place]. . Paronychia - continue with oral antibiotics [...] the specialist at [facility], she will be on a steroid taper. [...] next week with update on symptoms HTN-well rbtkdyuops-XEE-kycyutkio dysfunction-no recent cardiology follow up and significant [...] change in blood pressure readings at home. Uojxcbj-bgjsdlsiocud-ahcferre xanax at 2pm-take a full tab to [...] doses - then start the cymbalta on Wednesday morning. . Hypertension - well controlled - continue [...] doses - then start the cymbalta on Wednesday morning. . Hypertension - well controlled - continue [...] symptoms. Pt is planning a trip to [place] soon and I have encouraged her to [...] acute pain-recommend f/u with Dr Marin at [facility] start drinking 4 ounces of [...] deficiency-check level Aortic regurg-diastolic dysfuction-ef 50% in 2011-needs echo and cardiology follow up-will schedule with Dr Palacio . DEVANTE - Pt advised to increase fluids, vitamin C. Discussed natural and expected course of this diagnosis and need to alert me if symptoms do not follow expected course, or if any worse. RX sent to patient's pharmacy.
--- OUTSIDE RECORDS SUMMARY | 2018-07-05 07:28 | XMS REPORT | CCD ---
Author Author Rachael Newby Organization [facility] Address [address] [place] [address] Phone Care Team Providers Care Log Hauler Name Role Phone Rachael Newby PP Unavailable CCM Unavailable Summary Purpose Interface Exchange Insurance Providers Payer name Policy type / Coverage type Covered libertarian ID Effective Begin Date Effective End Date WPS Medicare Part B Medicare Part B [id number] 2013 Unknown [facility] Medicare Part B [id number] 2013 Unknown Family history Runs in the [...] of children Unknown 4 1 daughter in [place], 3 sons live in [facility] Employment Unknown 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 [employer] 04/16/[address]: 1039940 Former smoker Quit in 1986 - previously smoked 1 pack per week x 25 years 04/16/[address]: 826231 Currently drinks alcohol 1 glass of wine [...] Instructions isosorbide mononitrate 10 mg tablet RxNorm: 540024 1 Tablet(s) PO BID 09/10/2017 04/07/2018 Active pantoprazole 40 mg tablet,delayed release RxNorm: 397294 1 Tablet(s) PO BID x 1 wk then daily thereafter 09/03/2017 No Stop Date Active isosorbide mononitrate 10 mg tablet RxNorm: 199444 1 Tablet(s) PO daily 09/03/2017 09/09/2017 Inactive hydrocodone 10 mg-acetaminophen 325 mg tablet RxNorm: 026912 1 Tablet(s) PO Q4-6H as needed pain 07/09/2017 08/01/2017 Inactive alprazolam 1 mg tablet RxNorm: 373901 1 Tablet(s) PO Q8 PRN as needed TAKE 1 TABLET THREE TIMES DAILY NEEDED FOR ANXIETY. 07/01/2017 08/29/2017 Inactive omeprazole 20 mg tablet,delayed release RxNorm: 766849 1 Tablet(s) PO BID 07/01/2017 08/29/2017 Inactive omeprazole 20 mg tablet,delayed release RxNorm: 453936 1 Tablet(s) PO BID Tablet(s ) 1 Tablet(s) PO BID 06/30/20172016 Inactive hydrocodone 10 mg-acetaminophen 325 mg tablet RxNorm: 459941 1 Tablet(s) PO Q4-6H as needed pain 06/24/2017 07/08/2017 Inactive bupropion HCl XL 300 mg 24 hr tablet, extended release RxNorm: 521935 1 Tablet(s) PO daily 05/27/2017 08/19/2018 Active alprazolam 1 mg tablet RxNorm: 613250 1 Tablet(s) PO Q8 PRN as needed TAKE 1 TABLET THREE TIMES DAILY NEEDED FOR ANXIETY. 05/27/2017 06/30/2017 Inactive hydrocodone 10 mg-acetaminophen 325 mg tablet RxNorm: 591772 1 Tablet(s) PO Q4-6H as needed pain 05/27/2017 06/19/2017 Inactive cyanocobalamin (vit B-12) 1,000 mcg/mL injection solution RxNorm: 589097 1 Milliliter(s) Inj 05/27/2017 05/27/2017 Inactive cyanocobalamin (vit B-12) 1,000 mcg/mL injection solution RxNorm: 029022 1 Milliliter(s) Inj 04/27/2017 04/27/2017 Inactive hydrocodone 10 mg-acetaminophen 325 mg tablet RxNorm: 117556 1 Tablet(s) PO Q4-6H as needed pain 04/27/2017 05/26/2017 Inactive Cymbalta 60 mg capsule,delayed release RxNorm: 686538 1 Capsule(s) PO daily 04/27/2017 04/27/2017 Inactive cyanocobalamin (vit B-12) 1,000 mcg/mL injection solution RxNorm: 229642 1 Milliliter(s) Inj 04/09/2017 04/09/2017 Inactive cyanocobalamin (vit B-12) 1,000 mcg/mL injection solution RxNorm: 667367 Milliliter(s) Inj 03/23/2017 03/23/2017 Inactive alprazolam 1 mg tablet RxNorm: 042563 1 Tablet(s) PO Q8 PRN as needed TAKE 1 TABLET THREE TIMES DAILY NEEDED FOR ANXIETY. 03/17/2017 05/15/2017 Inactive cyanocobalamin (vit B-12) 1,000 mcg/mL injection solution RxNorm: 026923 Milliliter(s) Inj 03/11/2017 03/11/2017 Inactive metoprolol tartrate 50 mg tablet RxNorm: 142690 1 Tablet(s) PO BID 03/09/2017 03/03/2018 Active this replaces the 25mg RX for metoprolol tartate Metanx (algal oil) 3 mg-35 mg-2 mg-90.314 mg capsule RxNorm: 1 Capsule(s) PO BID 03/09/2017 05/17/2017 Inactive gabapentin 100 mg capsule RxNorm: 259990 2 Capsule(s) PO TID 05/31/2017 Inactive Zofran 4 mg tablet RxNorm: 559083 1 Tablet(s) PO TID as needed 02/26/2017 No Stop Date Active Kenalog 40 mg/mL suspension for injection RxNorm: 0494771 1 Milliliter(s) Inj 02/22/2017 02/22/2017 Inactive metoprolol tartrate 25 mg tablet RxNorm: 415000 1 Tablet(s) PO BID 02/22/2017 03/08/2017 Inactive 07/23/2016 10:27:52 AM trimethoprim 100 mg tablet RxNorm: 777577 1 Tablet(s) PO daily 01/02/2017 12/24/2016 Inactive Lipitor 40 mg tablet RxNorm: 126702 TAKE ONE TABLET BY MOUTH AT BEDTIME 12/25/2016 12/19/2017 Active Generic For:LIPITOR 40MG TAB refill request trimethoprim 100 mg tablet RxNorm: 096849 1 Tablet(s) PO daily 12/25/2016 06/22/2017 Inactive bupropion HCl XL 300 mg 24 hr tablet, extended release RxNorm: 577072 1 Tablet(s) PO daily 12/25/2016 04/26/2017 Inactive Bactrim DS 800 mg-160 mg tablet RxNorm: 255965 1 Tablet(s) PO BID 12/24/2016 01/02/2017 Inactive hydrocodone 10 mg-acetaminophen 325 mg tablet RxNorm: 938263 1 Tablet(s) PO Q4-6H as needed pain 12/24/2016 01/22/2017 Inactive bupropion HCl XL 300 mg 24 hr tablet, extended release RxNorm: 533371 1 Tablet(s) PO daily 12/24/2016 12/24/2016 Inactive omeprazole 20 mg tablet,delayed release RxNorm: 153208 Tablet(s) 1 Tablet(s) PO BID 11/27/2016 05/25/2017 Inactive hydrocodone 10 mg-acetaminophen 325 mg tablet RxNorm: 455569 1 Tablet(s) PO Q4-6H as needed pain 11/18/2016 12/11/2016 Inactive alprazolam 1 mg tablet RxNorm: 189251 1 Tablet(s) PO Q8 PRN as needed TAKE 1 TABLET THREE TIMES DAILY NEEDED FOR ANXIETY. 11/18/2016 02/15/2017 Inactive hydrocodone 10 mg-acetaminophen 325 mg tablet RxNorm: 059667 1 Tablet(s) PO Q4-6H as needed pain 10/19/2016 11/11/2016 Inactive cyanocobalamin (vit B-12) 1,000 mcg/mL injection solution RxNorm: 010236 1 Milliliter(s) Inj 10/14/2016 10/14/2016 Inactive prednisone 20 mg tablet RxNorm: 348072 3 Tablet(s) PO daily 10/08/2016 Inactive Metanx (algal oil) 3 mg-35 mg-2 mg-90.314 mg capsule RxNorm: 1 Capsule(s) PO BID 10/01/2016 01/28/2017 Inactive isosorbide mononitrate ER 30 mg tablet,extended release 24 hr RxNorm: 931656 1 Tablet(s) PO daily TAKE 1 TABLET BY MOUTH ONCE DAILY. 201612/23/2016 Inactive hydrocodone 10 mg-acetaminophen 325 mg tablet RxNorm: 471066 1 Tablet(s) PO Q4-6H as needed pain 09/24/2016 10/17/2016 Inactive cyanocobalamin (vit B-12) 1,000 mcg/mL injection solution RxNorm: 679474 Milliliter(s) Inj 09/16/2016 09/16/2016 Inactive alprazolam 1 mg tablet RxNorm: 689766 1 Tablet(s) PO Q8 PRN as needed TAKE 1 TABLET THREE TIMES DAILY NEEDED FOR ANXIETY. 09/01/2016 11/28/2016 Inactive hydrocodone 10 mg-acetaminophen 325 mg tablet RxNorm: 278574 1 Tablet(s) PO Q4-6H as needed pain 09/01/2016 09/23/2016 Inactive Vitamin D2 50,000 unit capsule RxNorm: 092792 1 Capsule(s) PO QW 08/14/2016 05/26/2017 Inactive Vitamin D2 50,000 unit capsule RxNorm: 660920 1 Capsule(s) PO QW 08/14/2016 08/13/2016 Inactive cyanocobalamin (vit B-12) 1,000 mcg/mL injection solution RxNorm: 090199 1 Milliliter(s) Inj 08/11/2016 08/11/2016 Inactive hydrocodone 10 mg-acetaminophen 325 mg tablet RxNorm: 846635 1 Tablet(s) PO Q4-6H as needed pain 08/07/2016 08/30/2016 Inactive metoprolol tartrate 25 mg tablet RxNorm: 752501 TAKE 1 TABLET BY MOUTH TWICE DAILY 07/23/2016 12/23/2016 Inactive 07/23/2016 10:27:52 AM gabapentin 100 mg capsule RxNorm: 502310 Capsule(s) PO TID TAKE (1) CAPSULE BY MOUTH THREE TIMES DAILY. 07/14/20162016 Inactive hydrocodone 10 mg-acetaminophen 325 mg tablet RxNorm: 624449 1 Tablet(s) PO Q4-6H as needed pain 07/09/2016 08/01/2016 Inactive fluorouracil 5 % topical cream RxNorm: 863652 1 Application TOP BID 07/01/2016 06/30/2016 Inactive fluorouracil 5 % topical cream RxNorm: 600371 1 Application TOP BID 07/01/2016 07/10/2016 Inactive alprazolam 1 mg tablet RxNorm: 345695 1 Tablet(s) PO Q8 PRN as needed TAKE 1 TABLET THREE TIMES DAILY NEEDED FOR ANXIETY. 06/22/2016 08/31/2016 Inactive ( Appended: Controlled substance eRx refill - RxReferenceNumber: [id number]) hydrocodone 10 mg-acetaminophen 325 mg tablet RxNorm: 954782 1 Tablet(s) PO Q4-6H as needed pain 06/16/2016 06/30/2016 Inactive doxycycline hyclate 100 mg capsule RxNorm: 4508444 1 Capsule(s) PO BID 05/27/2016 06/02/2016 Inactive hydrocodone 10 mg-acetaminophen 325 mg tablet RxNorm: 769610 1 Tablet(s) PO Q4-6H as needed pain 05/12/2016 06/04/2016 Inactive [SAVINGS FOR NON-COVERED DRUGS -- BIN :216170, PCN: ASPROD1, Group: XXXXX, ID# [id number], Questions: . THIS IS NOT INSURANCE.] alprazolam 1 mg tablet RxNorm: 837988 1 Tablet(s) PO Q8 PRN as needed TAKE 1 TABLET THREE TIMES DAILY NEEDED FOR ANXIETY. 05/01/2016 11/17/2016 Inactive ( Appended: Controlled substance eRx refill - RxReferenceNumber: [id number]) Flonase 50 mcg/actuation nasal spray,suspension RxNorm: 4174761 1 [place] NASAL BID 1 [place] NASAL BID 04/23/2016 04/17/2017 Inactive Flonase 50 mcg/actuation nasal spray,suspension RxNorm: 5547033 [place] 1 [place] NASAL BID 04/23/2016 04/22/2016 Inactive iron-vitamin C 100 mg-250 mg tablet RxNorm: 273692 1 Tablet(s) PO daily 04/23/2016 08/31/2016 Inactive hydrocodone 10 mg-acetaminophen 325 mg tablet RxNorm: 159385 1 Tablet(s) PO Q4-6H as needed pain 04/14/2016 05/07/2016 Inactive [SAVINGS FOR NON-COVERED DRUGS -- BIN :392600, PCN: ASPROD1, Group: XXXXX, ID# [id number], Questions: . THIS IS NOT INSURANCE.] omeprazole 20 mg tablet,delayed release RxNorm: 929013 Tablet(s) 1 Tablet(s) PO BID 03/16/2016 09/11/2016 Inactive doxycycline hyclate 100 mg tablet RxNorm: 667779 1 Tablet(s) PO BID 03/16/2016 03/15/2016 Inactive doxycycline hyclate 100 mg tablet RxNorm: 647747 1 Tablet(s) PO BID 03/16/2016 03/22/2016 Inactive isosorbide mononitrate ER 30 mg tablet,extended release 24 hr RxNorm: 069667 1 Tablet(s) PO daily TAKE 1 TABLET BY MOUTH ONCE DAILY. 201509/11/2016 Inactive Diflucan 150 mg tablet RxNorm: 349859 1 Tablet(s) PO daily 03/03/2016 Inactive Diflucan 150 mg tablet RxNorm: 189167 1 Tablet(s) PO daily 03/08/2016 Inactive lisinopril 10 mg tablet RxNorm: 121084 Tablet(s) 1 tab(s) po daily 02/11/2016 12/23/2016 Inactive bupropion HCl XL 300 mg 24 hr tablet, extended release RxNorm: 029760 1 Tablet(s) PO daily 02/05/2016 12/23/2016 Inactive hydrocodone 10 mg-acetaminophen 325 mg tablet RxNorm: 417872 1 Tablet(s) PO Q4-6H as needed pain 01/31/2016 02/23/2016 Inactive [SAVINGS FOR NON-COVERED DRUGS -- BIN :933911, PCN: ASPROD1, Group: XXXXX, ID# [id number], Questions: . THIS IS NOT INSURANCE.] alprazolam 1 mg tablet RxNorm: 894186 1 Tablet(s) PO Q8 PRN as needed TAKE 1 TABLET THREE TIMES DAILY NEEDED FOR ANXIETY. 01/21/2016 06/21/2016 Inactive ( Appended: Controlled substance eRx refill - RxReferenceNumber: [id number]) buspirone 5 mg tablet RxNorm: 110280 1 Tablet(s) PO BID 201501/20/2016 Inactive betamethasone valerate 0.1 % topical ointment RxNorm: 168944 1 TOP TID on rash of hand and leg 01/14/2016 02/12/2016 Inactive hydrocodone 10 mg-acetaminophen 325 mg tablet RxNorm: 567997 1 Tablet(s) PO Q4-6H as needed pain 12/31/2015 01/23/2016 Inactive [SAVINGS FOR NON-COVERED DRUGS -- BIN :757759, PCN: ASPROD1, Group: XXXXX, ID# [id number], Questions: . THIS IS NOT INSURANCE.] cyanocobalamin (vit B-12) 1,000 mcg/mL injection solution RxNorm: 850992 Milliliter(s) Inj 12/03/2015 12/03/2015 Inactive hydrocodone 10 mg-acetaminophen 325 mg tablet RxNorm: 626102 1 Tablet(s) PO Q4-6H as needed pain 11/20/2015 12/13/2015 Inactive [SAVINGS FOR NON-COVERED DRUGS -- BIN :628370, PCN: ASPROD1, Group: XXXXX, ID# [id number], Questions: . THIS IS NOT INSURANCE.] Lipitor 40 mg tablet RxNorm: 520128 1 Tablet(s) PO QHS TAKE 1 TABLET BY MOUTH ONCE DAILY. 10/29/2015 10/22/2016 Inactive pt to take 2 tabs of lipitor 20mg. She will call when ready to fill 40mg. hydrocodone 10 mg-acetaminophen 325 mg tablet RxNorm: 048200 1 Tablet(s) PO Q4-6H as needed pain 10/04/2015 11/19/2015 Inactive [SAVINGS FOR NON-COVERED DRUGS -- BIN :086168, PCN: ASPROD1, Group: XXXXX, ID# [id number], Questions: . THIS IS NOT INSURANCE.] alprazolam 1 mg tablet RxNorm: 256563 1 Tablet(s) PO Q8 PRN as needed TAKE 1 TABLET THREE TIMES DAILY NEEDED FOR ANXIETY. 09/25/2015 01/20/2016 Inactive ( Appended: Controlled substance eRx refill - RxReferenceNumber: [id number]) isosorbide mononitrate ER 30 mg tablet,extended release 24 hr RxNorm: 825873 1 Tablet(s) PO daily TAKE 1 TABLET BY MOUTH ONCE DAILY. 201503/15/2016 Inactive hydrocodone 10 mg-acetaminophen 325 mg tablet RxNorm: 907672 1 Tablet(s) PO Q4-6H as needed pain 07/02/2015 08/18/2015 Inactive [SAVINGS FOR NON-COVERED DRUGS -- BIN :606013, PCN: ASPROD1, Group: XXXXX, ID# [id number], Questions: . THIS IS NOT INSURANCE.] omeprazole 20 mg tablet,delayed release RxNorm: 705355 1 Tablet(s) PO BID 06/25/2015 01/20/2016 Inactive [SAVINGS FOR UNINSURED PATIENTS -- BIN:802351, PCN: ASPROD1, Group: AME08, ID# [id number], Process claim through [employer], for questions: . THIS IS NOT INSURANCE.] gabapentin 100 mg capsule RxNorm: 489879 TAKE 1 CAPSULE BY MOUTH 3 TIMES DAILY * SCHEDULED PREVENTION MEDICINE* 06/25/2015 06/18/2016 Inactive Generic For:NEURONTIN 100MG 06/25/2015 9:18:27 AM N O T I C E Last quantity doesn't match original quantity hydrocodone 10 mg-acetaminophen 325 mg tablet RxNorm: 950379 1 Tablet(s) PO Q4-6H as needed pain 06/07/2015 06/30/2015 Inactive [SAVINGS FOR NON-COVERED DRUGS -- BIN :232706, PCN: ASPROD1, Group: XXXXX, ID# [id number], Questions: . THIS IS NOT INSURANCE.] Amitiza 8 mcg capsule RxNorm: 199688 1 Capsule(s) PO daily 05/0904/22/2016 Inactive cyanocobalamin (vit B-12) 1,000 mcg/mL injection solution RxNorm: 197016 Milliliter(s) Inj 04/12/2015 04/12/2015 Inactive alprazolam 1 mg tablet RxNorm: 956228 1 Tablet(s) PO Q8 PRN as needed TAKE 1 TABLET THREE TIMES DAILY NEEDED FOR ANXIETY. 04/12/2015 09/24/2015 Inactive ( Appended: Controlled substance eRx refill - RxReferenceNumber: [id number]) hydrocodone 10 mg-acetaminophen 325 mg tablet RxNorm: 380201 1 Tablet(s) PO Q4-6H as needed pain 04/09/2015 05/01/2015 Inactive [SAVINGS FOR NON-COVERED DRUGS -- BIN :675319, PCN: ASPROD1, Group: XXXXX, ID# [id number], Questions: . THIS IS NOT INSURANCE.] hydrocodone 10 mg-acetaminophen 325 mg tablet RxNorm: 128201 1 Tablet(s) PO Q4-6H as needed pain 03/12/2015 04/04/2015 Inactive [SAVINGS FOR NON-COVERED DRUGS -- BIN :202986, PCN: ASPROD1, Group: XXXXX, ID# [id number], Questions: . THIS IS NOT INSURANCE.] Anusol-HC 25 mg suppository RxNorm: 4314611 1 Suppository RTL QHS as needed 03/12/2015 04/10/2015 Inactive hydrocodone 10 mg-acetaminophen 325 mg tablet RxNorm: 795252 1 Tablet(s) PO Q4-6H as needed pain 02/08/2015 03/03/2015 Inactive [SAVINGS FOR NON-COVERED DRUGS -- BIN :772480, PCN: ASPROD1, Group: XXXXX, ID# [id number], Questions: . THIS IS NOT INSURANCE.] cyanocobalamin (vit B-12) 1,000 mcg/mL injection solution RxNorm: 866193 Milliliter(s) Inj 01/22/2015 01/22/2015 Inactive Vitamin D2 50,000 unit capsule RxNorm: 045619 1 Capsule(s) PO QW 01/10/2015 01/09/2015 Inactive Vitamin D2 50,000 unit capsule RxNorm: 677149 1 Capsule(s) PO QW 01/10/2015 04/09/2015 Inactive [SAVINGS FOR NON-COVERED DRUGS -- BIN:548769, PCN: ASPROD1, Group: XXXXX, ID# [id number], Questions: . THIS IS NOT INSURANCE.] Flonase 50 mcg/actuation nasal spray,suspension RxNorm: 6752630 1 [place] NASAL BID 01/09/2015 01/03/2016 Inactive [SAVINGS FOR UNINSURED PATIENTS -- BIN:669711, PCN: ASPROD1, Group: AME08, ID# [id number], Process claim through [employer], for questions: . THIS IS NOT INSURANCE.] Kenalog 40 mg/mL suspension for injection RxNorm: 5527657 1 Milliliter(s) Inj 01/08/2015 01/08/2015 Inactive Vitamin B-12 1,000 mcg/mL injection solution RxNorm: 489930 1 Milliliter(s) Inj 01/08/2015 01/08/2015 Inactive [SAVINGS FOR NON-COVERED DRUGS -- BIN:142252, PCN: ASPROD1, Group: XXXXX, ID# [id number], Questions: . THIS IS NOT INSURANCE.] bupropion HCl XL 300 mg 24 hr tablet, extended release RxNorm: 058384 1 Tablet(s) PO daily 01/08/2015 02/01/2016 Inactive this replaces the wellbutrin sr 150mg bid dose she currently has on file metoprolol tartrate 25 mg tablet RxNorm: 314305 1 Tablet(s) PO BID 12/17/2014 12/11/2015 Inactive hydrocodone 10 mg-acetaminophen 325 mg tablet RxNorm: 391479 1 Tablet(s) PO Q4-6H as needed pain 12/05/2014 12/28/2014 Inactive [SAVINGS FOR NON-COVERED DRUGS -- BIN :439515, PCN: ASPROD1, Group: XXXXX, ID# [id number], Questions: . THIS IS NOT INSURANCE.] cyanocobalamin (vit B-12) 1,000 mcg/mL injection solution RxNorm: 048410 Milliliter(s) Inj 11/28/2014 11/28/2014 Inactive [SAVINGS FOR NON-COVERED DRUGS -- BIN:146882, PCN: ASPROD1, Group: XXXXX, ID# [id number], Questions: [phone]. THIS IS NOT INSURANCE.] lisinopril 10 mg tablet RxNorm: 914864 1 tab(s) po daily 201402/10/2016 Inactive lisinopril 10 mg tablet RxNorm: 812199 1 Tablet(s) PO daily 11/04/2014 Inactive [SAVINGS FOR NON-COVERED DRUGS -- BIN:181207, PCN: ASPROD1, Group: XXXXX, ID# [id number], Questions: . THIS IS NOT INSURANCE.] alprazolam 1 mg tablet RxNorm: 881999 1 Tablet(s) PO Q8 PRN as needed TAKE 1 TABLET THREE TIMES DAILY NEEDED FOR ANXIETY. 10/31/2014 04/11/2015 Inactive ( Appended: Controlled substance eRx refill - RxReferenceNumber: [id number]) hydrocodone 10 mg-acetaminophen 325 mg tablet RxNorm: 059458 1 Tablet(s) PO Q4-6H as needed pain 10/31/2014 11/29/2014 Inactive [SAVINGS FOR NON-COVERED DRUGS -- BIN :109517, PCN: ASPROD1, Group: XXXXX, ID# [id number], Questions: . THIS IS NOT INSURANCE.] bupropion HCl XL 300 mg 24 hr tablet, extended release RxNorm: 524108 1 Tablet(s) PO daily 10/29/2014 01/07/2015 Inactive this replaces the wellbutrin sr 150mg bid dose she currently has on file cyanocobalamin (vit B-12) 1,000 mcg/mL injection solution RxNorm: 906715 Milliliter(s) Inj 10/04/2014 10/04/2014 Inactive [SAVINGS FOR UNINSURED PATIENTS - - BIN:640061, PCN: ASPROD1, Group: AME08, ID# [id number], Process claim through [employer], for questions: . THIS IS NOT INSURANCE.] hydrocodone 10 mg-acetaminophen 325 mg tablet RxNorm: 748206 1 Tablet(s) PO Q4-6H as needed pain 10/04/2014 10/30/2014 Inactive [SAVINGS FOR UNINSURED PATIENTS -- BIN:591146, PCN: ASPROD1, Group: AME08, ID# [id number], Process claim through [employer], for questions: . THIS IS NOT INSURANCE.] Flonase 50 mcg/actuation nasal spray,suspension RxNorm: 990864 1 [place] NASAL BID 10/04/2014 12/02/2014 Inactive [SAVINGS FOR UNINSURED PATIENTS -- BIN:823846, PCN: ASPROD1, Group: AME08, ID# [id number], Process claim through [employer], for questions: . THIS IS NOT INSURANCE.] hydrocodone 10 mg-acetaminophen 325 mg tablet RxNorm: 359358 1 Tablet(s) PO Q4-6H as needed pain 10/04/2014 11/02/2014 Inactive [SAVINGS FOR UNINSURED PATIENTS -- BIN:009246, PCN: ASPROD1, Group: AME08, ID# [id number], Process claim through [employer], for questions: . THIS IS NOT INSURANCE.] alprazolam 1 mg tablet RxNorm: 688713 1 Tablet(s) PO Q8 PRN as needed TAKE 1 TABLET THREE TIMES DAILY NEEDED FOR ANXIETY. 09/26/2014 10/30/2014 Inactive ( Appended: Controlled substance eRx refill - RxReferenceNumber: [id number]) cyanocobalamin (vit B-12) 1,000 mcg/mL injection solution RxNorm: 049190 Milliliter(s) Inj 09/10/2014 09/10/2014 Inactive [SAVINGS FOR UNINSURED PATIENTS - - BIN:976294, PCN: ASPROD1, Group: AME08, ID# [id number], Process claim through [employer], for questions: . THIS IS NOT INSURANCE.] omeprazole 20 mg tablet,delayed release RxNorm: 790840 1 Tablet(s) PO BID 09/10/2014 04/07/2015 Inactive [SAVINGS FOR UNINSURED PATIENTS -- BIN:923423, PCN: ASPROD1, Group: AME08, ID# [id number], Process claim through [employer], for questions: . THIS IS NOT INSURANCE.] hydrocodone 10 mg-acetaminophen 325 mg tablet RxNorm: 647542 1 Tablet(s) PO Q4-6H as needed pain 09/03/2014 10/02/2014 Inactive [SAVINGS FOR UNINSURED PATIENTS -- BIN:796204, PCN: ASPROD1, Group: AME08, ID# [id number], Process claim through [employer], for questions: . THIS IS NOT INSURANCE.] cyanocobalamin (vit B-12) 1,000 mcg/mL injection solution RxNorm: 063542 Milliliter(s) Inj 08/06/2014 08/06/2014 Inactive [SAVINGS FOR UNINSURED PATIENTS - - BIN:507786, PCN: ASPROD1, Group: AME08, ID# [id number], Process claim through [employer], for questions: . THIS IS NOT INSURANCE.] prednisone 20 mg tablet RxNorm: 256442 3 Tablet(s) PO daily 08/10/2014 Inactive hydrocodone 10 mg-acetaminophen 325 mg tablet RxNorm: 890818 1 Tablet(s) PO Q4-6H as needed pain 07/12/2014 08/10/2014 Inactive [SAVINGS FOR UNINSURED PATIENTS -- BIN:312899, PCN: ASPROD1, Group: AME08, ID# [id number], Process claim through [employer], for questions: . THIS IS NOT INSURANCE.] alprazolam 1 mg tablet RxNorm: 968232 1 Tablet(s) PO Q8 PRN as needed TAKE 1 TABLET THREE TIMES DAILY NEEDED FOR ANXIETY. 07/12/2014 09/25/2014 Inactive ( Appended: Controlled substance eRx refill - RxReferenceNumber: [id number]) cyanocobalamin (vit B-12) 1,000 mcg/mL injection solution RxNorm: 351474 Milliliter(s) Inj 07/12/2014 07/12/2014 Inactive [SAVINGS FOR UNINSURED PATIENTS - - BIN:040337, PCN: ASPROD1, Group: AME08, ID# [id number], Process claim through [employer], for questions: . THIS IS NOT INSURANCE.] hydrocodone 10 mg-acetaminophen 325 mg tablet RxNorm: 776696 1 Tablet(s) PO Q4-6H as needed pain 06/28/2014 07/11/2014 Inactive [SAVINGS FOR UNINSURED PATIENTS -- BIN:992399, PCN: ASPROD1, Group: AME08, ID# [id number], Process claim through [employer], for questions: . THIS IS NOT INSURANCE.] cyanocobalamin (vit B-12) 1,000 mcg/mL injection solution RxNorm: 491261 1 Milliliter(s) Inj 06/28/2014 06/28/2014 Inactive [SAVINGS FOR UNINSURED PATIENTS - - BIN:815754, PCN: ASPROD1, Group: AME08, ID# [id number], Process claim through [employer], for questions: . THIS IS NOT INSURANCE.] cyanocobalamin (vit B-12) 1,000 mcg/mL injection solution RxNorm: 668773 Milliliter(s) Inj 06/14/2014 06/14/2014 Inactive [SAVINGS FOR UNINSURED PATIENTS - - BIN:709310, PCN: ASPROD1, Group: AME08, ID# [id number], Process claim through [employer], for questions: . THIS IS NOT INSURANCE.] cyanocobalamin (vit B-12) 1,000 mcg/mL injection solution RxNorm: 252030 Milliliter(s) Inj 05/31/2014 05/31/2014 Inactive [SAVINGS FOR UNINSURED PATIENTS - - BIN:560361, PCN: ASPROD1, Group: AME08, ID# [id number], Process claim through [employer], for questions: . THIS IS NOT INSURANCE.] cyanocobalamin (vit B-12) 1,000 mcg/mL injection solution RxNorm: 526182 Milliliter(s) Inj 05/16/2014 05/16/2014 Inactive [SAVINGS FOR UNINSURED PATIENTS - - BIN:550214, PCN: ASPROD1, Group: AME08, ID# [id number], Process claim through [employer], for questions: . THIS IS NOT INSURANCE.] trazodone 50 mg tablet RxNorm: 983860 1 Tablet(s) PO QPM 201308/05/2014 Inactive [SAVINGS FOR UNINSURED PATIENTS -- BIN:980324, PCN: ASPROD1, Group: AME08, ID # [id number], Process claim through [employer], for questions: . THIS IS NOT INSURANCE.] alprazolam 1 mg tablet RxNorm: 625345 1 Tablet(s) PO Q8 PRN as needed TAKE 1 TABLET THREE TIMES DAILY NEEDED FOR ANXIETY. 04/27/2014 07/11/2014 Inactive ( Appended: Controlled substance eRx refill - RxReferenceNumber: [id number]) cyanocobalamin (vit B-12) 1,000 mcg/mL injection solution RxNorm: 588823 1 Milliliter(s) Inj 04/05/2014 04/05/2014 Inactive [SAVINGS FOR UNINSURED PATIENTS - - BIN:231665, PCN: ASPROD1, Group: AME08, ID# [id number], Process claim through [employer], for questions: . THIS IS NOT INSURANCE.] gabapentin 100 mg capsule RxNorm: 932816 TAKE 1 CAPSULE BY MOUTH 3 TIMES DAILY * SCHEDULED PREVENTION MEDICINE* 03/29/2014 03/23/2015 Inactive Generic For:NEURONTIN 100MG 03/29/2014 3:08:32 PM N O T I C E Last dispense quantity was less than original quantity written hydrocodone 10 mg-acetaminophen 325 mg tablet RxNorm: 210273 1 Tablet(s) PO Q4-6H as needed pain 03/05/2014 06/27/2014 Inactive [SAVINGS FOR UNINSURED PATIENTS -- BIN:[id number], PCN: [id number], Group: [id number], ID# [id number], Process claim through [employer], for questions: . THIS IS NOT INSURANCE.] bupropion HCl XL 300 mg 24 hr tablet, extended release RxNorm: 789394 1 Tablet(s) PO daily 03/05/2014 10/28/2014 Inactive this replaces the wellbutrin sr 150mg bid dose she currently has on file cyanocobalamin (vit B-12) 1,000 mcg/mL injection solution RxNorm: 084443 Milliliter(s) Inj 02/01/2014 02/01/2014 Inactive betamethasone valerate 0.1 % topical cream RxNorm: 899002 1 Application TOP BID 02/01/2014 02/01/2014 Inactive lisinopril 10 mg tablet RxNorm: 360905 1 Tablet(s) PO daily 07/201403/02/2014 Inactive Diflucan 150 mg tablet RxNorm: 906823 1 Tablet(s) PO every other day 01/22/2014 02/04/2014 Inactive doxycycline hyclate 100 mg tablet RxNorm: 453613 1 Tablet(s) PO BID 12/29/2013 12/28/2013 Inactive cyanocobalamin (vit B-12) 1,000 mcg/mL injection solution RxNorm: 184403 Milliliter(s) Inj 12/29/2013 12/29/2013 Inactive doxycycline hyclate 100 mg tablet RxNorm: 240460 1 Tablet(s) PO BID 12/29/2013 01/04/2014 Inactive metoprolol tartrate 25 mg tablet RxNorm: 720512 1 Tablet(s) PO BID 12/14/2013 12/08/2014 Inactive trimethoprim 0.1 %-polymyxin B 10,000 unit/mL eye drops RxNorm: 207330 2 Drop(s) OPH TID right eye 12/07/2013 12/13/2013 Inactive nystatin-triamcinolone 100,000 unit/g-0.1 % topical cream RxNorm: 4072746 1 TOP BID 12/07/2013 12/16/2013 Inactive Lipitor 20 mg tablet RxNorm: 692096 1 Tablet(s) PO QHS TAKE 1 TABLET BY MOUTH ONCE DAILY. 11/30/2013 11/24/2014 Inactive Lipitor 20 mg tablet RxNorm: 212467 1 Tablet(s) PO QHS TAKE 1 TABLET BY MOUTH ONCE DAILY. 11/30/2013 11/29/2013 Inactive hydrocodone 10 mg-acetaminophen 325 mg tablet RxNorm: 907774 1 Tablet(s) PO Q6 PRN 11/24/2013 No Stop Date Active Carafate 1 gram tablet RxNorm: 149062 1 Tablet(s) PO QID TAKE 1 TABLET BY MOUTH 4 TIMES DAILY. 10/09/2013 04/22/2016 Inactive alprazolam 1 mg tablet RxNorm: 530976 1 Tablet(s) PO Q8 PRN TAKE 1 TABLET THREE TIMES DAILY NEEDED FOR ANXIETY. 10/09/2013 No Stop Date Active (Appended: Controlled substance eRx refill - RxReferenceNumber: [id number]) isosorbide mononitrate ER 30 mg tablet,extended release 24 hr RxNorm: 958061 1 Tablet(s) PO daily TAKE 1 TABLET BY MOUTH ONCE DAILY. 201304/29/2014 Inactive hydrocodone 10 mg-acetaminophen 325 mg tablet RxNorm: 358656 Tablet(s) PO 09/04/2013 No Stop Date Active bupropion HCl XL 150 mg 24 hr tablet, extended release RxNorm: 705758 1 Tablet(s) PO daily 09/04/2013 03/04/2014 Inactive this replaces the wellbutrin sr 150mg bid dose she currently has on file Lipitor 20 mg tablet RxNorm: 906264 Tablet(s) PO TAKE 1 TABLET BY MOUTH ONCE DAILY. 08/21/2013 11/29/2013 Inactive hydrocodone 5 mg-acetaminophen 325 mg tablet RxNorm: 6665402 1 Tablet(s) PO Q6 PRN 08/11/2013 No Stop Date Active Lipitor 20 mg tablet RxNorm: 995698 Tablet(s) PO TAKE 1 TABLET BY MOUTH ONCE DAILY. 08/10/2013 08/20/2013 Inactive alprazolam 1 mg tablet RxNorm: 268135 1 Tablet(s) PO Q8 PRN TAKE 1 TABLET THREE TIMES DAILY NEEDED FOR ANXIETY. 08/10/2013 No Stop Date Active (Appended: Controlled substance eRx refill - RxReferenceNumber: [id number]) Lipitor 20 mg tablet RxNorm: 546128 Tablet(s) PO TAKE 1 TABLET BY MOUTH ONCE DAILY. 07/17/2013 08/09/2013 Inactive Lipitor 20 mg tablet RxNorm: 044112 1 Tablet(s) PO QPM TAKE 1 TABLET BY MOUTH ONCE DAILY. 07/05/2013 07/16/2013 Inactive Lipitor 20 mg tablet RxNorm: 066784 Tablet(s) PO TAKE 1 TABLET BY MOUTH ONCE DAILY. 06/19/2013 07/04/2013 Inactive Carafate 1 gram tablet RxNorm: 221380 Tablet(s) PO TAKE 1 TABLET BY MOUTH 4 TIMES DAILY. 06/16/2013 10/08/2013 Inactive isosorbide mononitrate ER 30 mg tablet,extended release 24 hr RxNorm: 569335 Tablet (s) PO TAKE 1 TABLET BY MOUTH ONCE DAILY. 06/16/2013 10/01/2013 Inactive hydrocodone 10 mg-acetaminophen 325 mg tablet RxNorm: 794314 Tablet(s) PO 05/18/2013 No Stop Date Active Lipitor 20 mg tablet RxNorm: 495404 Tablet(s) PO TAKE 1 TABLET BY MOUTH ONCE DAILY. 04/27/2013 06/18/2013 Inactive ketorolac 60 mg/2 mL IM RxNorm: 949886 1 Milliliter(s) IM 04/1804/18/2013 Inactive hydrocodone 10 mg-acetaminophen 325 mg tablet RxNorm: 8537359 Tablet(s) PO 04/10/2013 No Stop Date Active hydrocodone 5 mg-acetaminophen 325 mg tablet RxNorm: 6958016 1 Tablet(s) PO Q6 PRN 04/10/2013 No Stop Date Active alprazolam 1 mg tablet RxNorm: 325343 1 Tablet(s) PO Q8 PRN TAKE 1 TABLET THREE TIMES DAILY NEEDED FOR ANXIETY. 03/16/2013 No Stop Date Active (Appended: Controlled substance eRx refill - RxReferenceNumber: [id number]) metoprolol tartrate 25 mg tablet RxNorm: 826687 1 Tablet(s) PO BID 03/16/2013 10/11/2013 Inactive citalopram 40 mg tablet RxNorm: 490770 1 Tablet(s) PO QPM 03/1603/09/2014 Inactive hydrocodone 5 mg-acetaminophen 325 mg tablet RxNorm: 2888427 1 Tablet(s) PO Q6 PRN 01/26/2013 No Stop Date Active doxycycline hyclate 100 mg tablet,delayed release RxNorm: 395169 1 Tablet(s) PO BID 01/26/2013 02/08/2013 Inactive Diflucan 150 mg tablet RxNorm: 587947 1 Tablet(s) PO daily 01/201302/04/2013 Inactive gabapentin 100 mg capsule RxNorm: 644764 Capsule(s) PO TAKE (1) CAPSULE BY MOUTH THREE TIMES DAILY. 01/19/2013 07/13/2016 Inactive gabapentin 100 mg capsule RxNorm: 119865 Capsule(s) PO TAKE (1) CAPSULE BY MOUTH THREE TIMES DAILY. 01/19/2013 03/28/2014 Inactive prednisone 10 mg tablets in a dose pack RxNorm: 597336 Tablet(s) PO 12/27/2012 01/01/2013 Inactive Bactroban 2 % Topical Ointment RxNorm: 168606 1 Application TOP BID 12/27/2012 01/02/2013 Inactive gabapentin 100 mg capsule RxNorm: 531434 1 Capsule(s) PO TID 01/18/2013 Inactive TAKE 1 CAPSULE BY MOUTH 3 TIMES DAILY (SCHEDULED) Lipitor 20 mg tablet RxNorm: 523039 Tablet(s) PO TAKE 1 TABLET BY MOUTH ONCE DAILY. 11/17/2012 04/26/2013 Inactive citalopram 40 mg tablet RxNorm: 227326 1 Tablet(s) PO daily 03/15/2013 Inactive citalopram 40 mg tablet RxNorm: 729583 1 Tablet(s) PO daily 11/13/2012 Inactive alprazolam 1 mg tablet RxNorm: 777721 Tablet(s) PO TAKE 1 TABLET THREE TIMES DAILY NEEDED FOR ANXIETY. 10/04/2012 Inactive (Appended: Controlled substance eRx refill - RxReferenceNumber: [id number]) bupropion HCl XL 300 mg 24 hr tablet, extended release RxNorm: 079660 1 Tablet(s) PO daily 09/21/2012 09/03/2013 Inactive this replaces the wellbutrin sr 150mg bid dose she currently has on file hydrocodone 5 mg-acetaminophen 325 mg tablet RxNorm: 2579440 1 Tablet(s) PO Q6 PRN 09/08/2012 09/07/2012 Inactive hydrocodone-acetaminophen 5 mg-325 mg tablet RxNorm: 4920270 1 Tablet(s) PO Q6 PRN 09/08/2012 No Stop Date Active Wellbutrin SR 150 mg tablet,sustained-release RxNorm: 553179 Tablet(s) PO TAKE 1 TABLET BY MOUTH TWICE DAILY. 09/01/2012 Inactive clindamycin 300 mg capsule RxNorm: 218524 1 Capsule(s) PO BID 08/02/2012 08/15/2012 Inactive hydrocodone-acetaminophen 5 mg-325 mg tablet RxNorm: 3538150 1 Tablet(s) PO Q6 PRN 08/02/2012 09/07/2012 Inactive metronidazole 500 mg tablet RxNorm: 463567 1 Tablet(s) PO TID 08/02/2012 08/15/2012 Inactive Kenalog 40 mg/mL Susp for Injection RxNorm: 9373264 Milliliter(s) Inj 06/27/2012 06/27/2012 Inactive prednisone 10 mg tablets in a dose pack RxNorm: 059855 1 Tablet(s) PO as directed 06/27/2012 07/06/2012 Inactive alprazolam 1 mg tablet RxNorm: 560862 Tablet(s) PO 06/10/2012 10/04/2012 Inactive TAKE 1 TABLET THREE TIMES DAILY NEEDED FOR ANXIETY. (Appended: Controlled substance eRx refill - RxReferenceNumber: [id number]) Kenalog 40 mg/mL Susp for Injection RxNorm: 1008913 1 Milliliter(s) Inj 06/06/2012 06/06/2012 Inactive Voltaren 1 % Topical Gel RxNorm: 414963 1 Application TOP QID apply two grams to right elbow, 4 grams to right shoulder and neck, and 4 grams to sacroiliac joint 4 times daily 06/06/2012 06/05/2012 Inactive Voltaren 1 % Topical Gel RxNorm: 945881 1 Application TOP QID apply two grams to right elbow, 4 grams to right shoulder and neck, and 4 grams to sacroiliac joint 4 times daily 06/06/2012 08/31/2016 Inactive alprazolam 1 mg tablet RxNorm: 182605 Tablet(s) PO 06/06/2012 06/09/2012 Inactive TAKE 1 TABLET THREE TIMES DAILY NEEDED FOR ANXIETY. (Appended: Controlled substance eRx refill - RxReferenceNumber: [id number]) alprazolam 1 mg tablet RxNorm: 368079 Tablet(s) PO 06/01/2012 06/06/2012 Inactive TAKE 1 TABLET THREE TIMES DAILY NEEDED FOR ANXIETY. (Appended: Controlled substance eRx refill - RxReferenceNumber: [id number]) hydrocodone-acetaminophen 5 mg-325 mg tablet RxNorm: 2315450 1 Tablet(s) PO Q6 PRN 05/16/2012 08/01/2012 Inactive isosorbide mononitrate ER 30 mg tablet,extended release 24 hr RxNorm: 912142 Tablet (s) PO 03/14/2012 06/15/2013 Inactive TAKE 1 TABLET BY MOUTH ONCE DAILY. Lipitor 20 mg tablet RxNorm: 594569 Tablet(s) PO 03/14/2012 11/16/2012 Inactive TAKE 1 TABLET BY MOUTH ONCE DAILY. gabapentin 100 mg Cap RxNorm: 205792 Capsule(s) PO 03/03/2012 03/02/2012 Inactive TAKE 1 CAPSULE BY MOUTH 3 TIMES DAILY (SCHEDULED) isosorbide mononitrate ER 30 mg tablet,extended release 24 hr RxNorm: 432956 1 Tablet(s) PO daily 03/03/2012 No Stop Date Active gabapentin 100 mg capsule RxNorm: 046188 Capsule(s) PO 201112/18/2012 Inactive TAKE 1 CAPSULE BY MOUTH 3 TIMES DAILY (SCHEDULED) Celexa 20 mg Tab RxNorm: 356058 1 Tablet(s) PO daily 201111/14/2012 Inactive Vitamin B-12 1,000 mcg/mL Injection RxNorm: 352750 Milliliter(s) Inj 02/08/2012 02/08/2012 Inactive Wellbutrin SR 150 mg tablet,sustained-release RxNorm: 784108 1 Tablet(s) PO daily 02/08/2012 09/20/2012 Inactive Rocephin 500 mg Solution for Injection RxNorm: 778940 Inj 01/3102/01/2012 Inactive cefdinir 300 mg Cap RxNorm: 641247 1 Capsule(s) PO BID 201102/29/2012 Inactive triamcinolone acetonide 0.1 % Dental Paste RxNorm: 5410384 1 Application [place] QID 01/22/2012 01/28/2012 Inactive alprazolam 1 mg tablet RxNorm: 974808 1 Tablet(s) PO TID PRN 06/01/2012 Inactive alprazolam 1 mg Tab RxNorm: 975624 1 Tablet(s) PO TID PRN 01/10/2012 Inactive Carafate 1 gram tablet RxNorm: 757455 1 Tablet(s) PO QID 201112/04/2012 Inactive hydrocodone-acetaminophen 5 mg-325 mg Tab RxNorm: 2539121 1-2 Tablet(s) PO Q6 PRN 11/13/2011 12/12/2011 Inactive Kenalog 40 mg/mL Susp for Injection RxNorm: 1453345 1 Milliliter(s) Inj 10/20/2011 10/20/2011 Inactive Bactrim DS 800 mg-160 mg Tab RxNorm: 000361 1 Tablet(s) PO BID 10/19/2011 02/29/2012 Inactive alprazolam 1 mg Tab RxNorm: 086245 1 Tablet(s) PO TID PRN 11/17/2011 Inactive hydrocodone-acetaminophen 5 mg-325 mg Tab RxNorm: 4793176 1-2 Tablet(s) PO Q6 PRN 10/15/2011 11/12/2011 Inactive hydrocodone-acetaminophen 5 mg-325 mg Tab RxNorm: 7451452 1-2 Tablet(s) PO Q6 PRN 09/24/2011 10/14/2011 Inactive citalopram 40 mg Tab RxNorm: 540309 1 Tablet(s) PO daily 201102/29/2012 Inactive alprazolam 1 mg Tab RxNorm: 088251 1 Tablet(s) PO TID PRN 10/201110/18/2011 Inactive Wellbutrin SR 150 mg Tab RxNorm: 705279 1 Tablet(s) PO BID 10/201102/07/2012 Inactive Wellbutrin SR 150 mg tablet,sustained-release RxNorm: 539776 1 Tablet(s) PO BID 08/25/2011 02/01/2012 Inactive Lipitor 20 mg tablet RxNorm: 686843 1 Tablet(s) PO daily 201002/14/2012 Inactive Percocet 10 mg-325 mg Tab RxNorm: 5795054 1 Tablet(s) PO Q6 PRN 08/13/2011 02/29/2012 Inactive hydrocodone-acetaminophen 5 mg-325 mg Tab RxNorm: 5464047 1-2 Tablet(s) PO Q6 PRN 08/04/2011 09/23/2011 Inactive naproxen 500 mg tablet RxNorm: 414514 1 Tablet(s) PO BID 201001/25/2012 Inactive hydrochlorothiazide 25 mg Tab RxNorm: 474847 1 Tablet(s) PO daily 07/28/2011 01/23/2012 Inactive ketorolac 60 mg/2 mL IM RxNorm: 503916 Milliliter(s) IM 201007/15/2011 Inactive ketorolac 60 mg/2 mL IM RxNorm: 084421 Milliliter(s) IM 201007/02/2011 Inactive ketorolac 15 mg/mL Injection RxNorm: 497025 1 Milliliter(s) Inj 06/24/2011 07/02/2011 Inactive hydrocodone-acetaminophen 5 mg-325 mg Tab RxNorm: 8195543 1-2 Tablet(s) PO Q6 PRN 06/16/2011 08/03/2011 Inactive gabapentin 100 mg Cap RxNorm: 194926 1 Capsule(s) PO TID 201002/01/2012 Inactive lisinopril 10 mg tablet RxNorm: 745129 1 Tablet(s) PO daily 01/25/2012 Inactive alprazolam 1 mg Tab RxNorm: 574930 1 Tablet(s) PO TID PRN 08/24/2011 Inactive Mobic 15 mg Tab RxNorm : 016899 1 Tablet(s) PO daily 05/08/2011 02/01/2012 Inactive triamcinolone acetonide 0.5 % topical cream RxNorm: 6739725 TOP BID No Start Date Active Lipitor 10 mg Tab RxNorm: 555115 1 Tablet(s) PO daily No Start Date 02/01/2012 Inactive citalopram 40 mg Tab RxNorm: 569539 1 Tablet(s) PO daily No Start Date 02/01/2012 Inactive colestipol 1 gram Tab RxNorm: 1010619 1 Tablet(s) PO daily No Start Date 01/31/2012 Inactive hydrocodone-acetaminophen 5 mg-325 mg tablet RxNorm: 2936582 1 Tablet(s) PO PRN 1 tab q6hrs prn No Start Date 05/15/2012 Inactive lisinopril 10 mg Tab RxNorm: 695868 1 Tablet(s) PO daily No Start Date 06/15/2011 Inactive metoprolol succinate ER 25 mg 24 hr Tab RxNorm: 302281 1 Tablet(s) PO daily No Start Date 02/01/2012 Inactive hydrocodone-acetaminophen 5 mg-325 mg Tab RxNorm: 9072187 1 Tablet(s) PO Q6 PRN No Start Date 06/15/2011 Inactive hydrocodone 10 mg-acetaminophen 325 mg tablet RxNorm: 6962768 Tablet(s) PO No Start Date 04/10/2013 Inactive aspirin, buffered 81 mg Tab RxNorm: 356833 1 Tablet(s) PO daily No Start Date 04/16/2011 Inactive citalopram 40 mg Tab RxNorm: 899543 1 Tablet(s) PO daily No Start Date 02/01/2012 Inactive aspirin 81 mg Cap, Delayed Release RxNorm: 920369 1 Capsule(s) PO daily No Start Date 08/31/2016 Inactive isosorbide mononitrate ER 30 mg 24 hr Tab RxNorm: 463274 1 Tablet(s) PO daily No Start Date 02/01/2012 Inactive Fish Oil 1,000 mg Cap RxNorm: 1 Capsule(s) PO daily No Start Date 08/31/2016 Inactive prednisone 10 mg Tab RxNorm: 271043 1 Tablet(s) PO as doctor directed 6 po daily x 2days, then 4 daily x 2days, then2 daily x 2days, then 1 daily x 2days, then 1 /2 dailyx 4 d No Start Date 02/01/2012 Inactive alprazolam 1 mg Tab RxNorm: 933410 1 Tablet(s) PO TID PRN No Start Date 06/15/2011 Inactive Diflucan 150 mg tablet RxNorm: 766461 1 Tablet(s) PO every other day No Start Date 01/21/2014 Inactive betamethasone, augmented 0.05 % Topical Cream RxNorm: 052396 1 Application TOP No Start Date 02/01/2012 Inactive Carafate 1 gram Tab RxNorm: 952619 1 Tablet(s) PO AC & HS No Start Date 02/01/2012 Inactive Lyrica 50 mg Cap RxNorm: 275505 1 Capsule(s) PO TID No Start Date 02/01/2012 Inactive Fish Oil Oral RxNorm: Oral No Start Date Inactive Carafate 1 gram Tab RxNorm: 302794 1 Gram(s) PO AC & HS 1gm before meals and at bedtime No Start Date 02/01/2012 Inactive Zofran 4 mg tablet RxNorm: 994551 1 Tablet(s) PO TID as needed No Start Date 02/25/2017 Inactive metoprolol tartrate 25 mg tablet RxNorm: 018082 1 Tablet(s) PO daily No Start Date 03/15/2013 Inactive colestipol 1 gram Tab RxNorm: 5732321 1 Gram(s) PO daily No Start Date 08/31/2016 Inactive hydrochlorothiazide 25 mg Tab RxNorm: 671980 1 Tablet(s) PO daily No Start Date 01/25/2012 Inactive acyclovir 400 mg Tab RxNorm: 080602 1 Tablet(s) PO QID QID x 10 days then BID No Start Date 02/01/2012 Inactive Mobic 15 mg Tab RxNorm : 909190 1 Tablet(s) PO daily No Start Date 05/07/2011 Inactive hydrochlorothiazide 25 mg Tab RxNorm: 735933 1 Tablet(s) PO daily No Start Date 07/27/2011 Inactive isosorbide mononitrate ER 30 mg 24 hr Tab RxNorm: 503314 1 Tablet(s) PO daily No Start Date 01/31/2012 Inactive Lipitor 10 mg Tab RxNorm: 538069 1 Tablet(s) PO daily No Start Date 08/18/2011 Inactive alprazolam 1 mg Tab RxNorm: 435288 1 Tablet(s) PO PRN 1mg tid prn No Start Date 06/15/2011 Inactive Wellbutrin SR 150 mg Tab RxNorm: 525814 1 Tablet(s) PO BID No Start Date 02/01/2012 Inactive Medication Administered Medication Codes Instructions Start Date Status cyanocobalamin (vit B-12) 1,000 mcg/mL injection solution RxNorm: 158206 1Milliliter 05/27/2017 No longer Active cyanocobalamin (vit B-12) 1,000 mcg/mL injection solution RxNorm: 159760 1Milliliter 04/27/2017 No longer Active cyanocobalamin (vit B-12) 1,000 mcg/mL injection solution RxNorm: 360234 1Milliliter 04/09/2017 No longer Active cyanocobalamin (vit B-12) 1,000 mcg/mL injection solution RxNorm: 342929 Milliliter 03/23/2017 No longer Active cyanocobalamin (vit B-12) 1,000 mcg/mL injection solution RxNorm: 069238 Milliliter 03/11/2017 No longer Active Kenalog 40 mg/mL suspension for injection RxNorm: 2282000 1Milliliter 02/22/2017 No longer Active cyanocobalamin (vit B-12) 1,000 mcg/mL injection solution RxNorm: 786147 1Milliliter 10/14/2016 No longer Active cyanocobalamin (vit B-12) 1,000 mcg/mL injection solution RxNorm: 598351 Milliliter 09/16/2016 No longer Active cyanocobalamin (vit B-12) 1,000 mcg/mL injection solution RxNorm: 431719 1Milliliter 08/11/2016 No longer Active cyanocobalamin (vit B-12) 1,000 mcg/mL injection solution RxNorm: 228583 Milliliter 12/03/2015 No longer Active cyanocobalamin (vit B-12) 1,000 mcg/mL injection solution RxNorm: 938280 Milliliter 04/12/2015 No longer Active cyanocobalamin (vit B-12) 1,000 mcg/mL injection solution RxNorm: 929706 Milliliter 01/22/2015 No longer Active Vitamin B-12 1,000 mcg/mL injection solution RxNorm: 575711 1Milliliter 01/08/2015 No longer Active Kenalog 40 mg/mL suspension for injection RxNorm: 4187680 1Milliliter 01/08/2015 No longer Active cyanocobalamin (vit B-12) 1,000 mcg/mL injection solution RxNorm: 247311 Milliliter 11/28/2014 No longer Active cyanocobalamin (vit B-12) 1,000 mcg/mL injection solution RxNorm: 870174 Milliliter 10/04/2014 No longer Active cyanocobalamin (vit B-12) 1,000 mcg/mL injection solution RxNorm: 982333 Milliliter 09/10/2014 No longer Active cyanocobalamin (vit B-12) 1,000 mcg/mL injection solution RxNorm: 964564 Milliliter 08/06/2014 No longer Active cyanocobalamin (vit B-12) 1,000 mcg/mL injection solution RxNorm: 434120 Milliliter 07/12/2014 No longer Active cyanocobalamin (vit B-12) 1,000 mcg/mL injection solution RxNorm: 375100 1Milliliter 06/28/2014 No longer Active cyanocobalamin (vit B-12) 1,000 mcg/mL injection solution RxNorm: 324737 Milliliter 06/14/2014 No longer Active cyanocobalamin (vit B-12) 1,000 mcg/mL injection solution RxNorm: 173149 Milliliter 05/31/2014 No longer Active cyanocobalamin (vit B-12) 1,000 mcg/mL injection solution RxNorm: 281652 Milliliter 05/16/2014 No longer Active cyanocobalamin (vit B-12) 1,000 mcg/mL injection solution RxNorm: 993022 1Milliliter 04/05/2014 No longer Active cyanocobalamin (vit B-12) 1,000 mcg/mL injection solution RxNorm: 477340 Milliliter 02/01/2014 No longer Active cyanocobalamin (vit B-12) 1,000 mcg/mL injection solution RxNorm: 788990 Milliliter 12/29/2013 No longer Active ketorolac 60 mg/2 mL IM RxNorm: 813510 1Milliliter 04/18/2013 No longer Active Kenalog 40 mg/mL Susp for Injection RxNorm: 7032513 Milliliter 06/27/2012 No longer Active Kenalog 40 mg/mL Susp for Injection RxNorm: 4030179 1Milliliter 06/06/2012 No longer Active Vitamin B-12 1,000 mcg/mL Injection RxNorm: 029029 Milliliter 02/08/2012 No longer Active Rocephin 500 mg Solution for Injection RxNorm: 953313 02/01/2012 No longer Active Kenalog 40 mg/mL Susp for Injection RxNorm: 6397178 1Milliliter 10/20/2011 No longer Active ketorolac 60 mg/2 mL IM RxNorm: 246189 Milliliter 07/15/2011 No longer Active ketorolac 60 mg/2 mL IM RxNorm: 120457 Milliliter 07/02/2011 No longer Active Immunizations Vaccine Codes Date Status Influenza CVX: 141 05/27/2017 completed Influenza CVX: 141 04/23/2016 completed Pneumococcal CVX: 33 08/06/2014 completed Pneumococcal (Adult) CVX: 33 08/06/2014 completed Influenza CVX: 141 05/16/2014 completed Assessments Condition Codes Effective Dates Essential (primary) hypertension ICD-10: I10 ICD-9: 401.9 09/28/2017 Chronic pain syndrome ICD-10: G89.4 ICD-9: 338.4 [...] ref lab 12/25/2016 Vitamin D 25 Oh [id number] VITAMIN D, 25 HYDROXY 30.42 ng/mL Cbc [...] 91.7 fl 08/11/2016 Cbc With Differential Ord2 MCH 30.1 pg 08/11/2016 Cbc With Differential Ord2 [place]% 8.4 % 08/11/2016 Cbc With Differential Ord2 Eos% 2.1 % 08/11/2016 Cbc With Differential Ord2 MCHC 32.8 pg 08/11/2016 Cbc With Differential Ord2 Baso% 0.5 % 08/11/2016 Cbc With Differential Ord2 PLT 345 K/ul 08/11/2016 Cbc With Differential Ord2 RDW 12.9 % 08/11/2016 Cbc With Differential Ord2 Neut ABS# 3.94 K/ul 08/11/2016 Cbc With Differential Ord2 Lymph ABS# 1.87 K/ul 08/11/2016 Cbc With Differential Ord2 [place] ABS# 0.6 K/ul 08/11/2016 Cbc With Differential Ord2 Eos ABS# 0.1 K/ul 08/11/2016 Cbc With Differential Ord2 Baso ABS# 0.0 K/ul 08/11/2016 Tsh Ord6 hTSH II 0.90 uIU/mL 08/11/2016 Iron Ord72 Iron 135 ug/dl 08/11/2016 Ferritin Ord22 FERRITIN 135.3 ng/mL 08/11/2016 B12 Qts061 B12 >1500.00 pg/ml 08/11/2016 Comp Metabolic Mdx748 NA 138 mEq/L 08/11/2016 Comp Metabolic Yen380 K 4.6 mEq/L 08/11/2016 Comp Metabolic Xyf941 CL 102 mEq/L 08/11/2016 Comp Metabolic Agz499 CO2 29.0 mEq/L 08/11/2016 Comp Metabolic Mbr559 ANION GAP 12 08/11/2016 Comp Metabolic Fpl442 GLUCOSE 83 mg/dL 08/11/2016 Comp Metabolic Lwr468 Creat 1.0 mg/dL 08/11/2016 Comp Metabolic Nlk804 eGFR 60 ml/min/1.73m2 08/11/2016 Comp Metabolic Pbl126 BUN 14 mg/dL 08/11/2016 Comp Metabolic Nag508 B/C Ratio 14.6 Ratio 08/11/2016 Comp Metabolic Akh120 CALCIUM 10.2 mg/dL 08/11/2016 Comp Metabolic Znj107 ALK PHOS 69 U/L 08/11/2016 Comp Metabolic Cvx194 AST(SGOT) 15 U/L 08/11/2016 Comp Metabolic Wet473 ALT(SGPT) 12 U/L 08/11/2016 Comp Metabolic Ttx799 BILI T 1.3 mg/dL 08/11/2016 Comp Metabolic Ktd302 ALBUMIN 4.7 g/dL 08/11/2016 Comp Metabolic Chg744 TPRO 7.3 g/dL 08/11/2016 Comp Metabolic Fpz862 GLOB 2.6 g/dL 08/11/2016 Comp Metabolic Cpk412 A/G Ratio 1.9 Ratio 08/11/2016 Comp Metabolic Txf430 Osmo 275 mOsmo 08/11/2016 Culture Urine [id number] URINE CULTURE SEE NOTES 06/01/2016 Culture Urine [id number] Continued Results 06/01/2016 Urine Culture Ucult Complete [...] Ord15 CALCIUM 9.6 mg/dL 05/18/2016 Comp Metabolic Wyi690 NA 143 mEq/L 04/28/2016 Comp Metabolic Awt465 K 3.3 mEq/L 04/28/2016 Comp Metabolic Ieh221 CL 108 mEq/L 04/28/2016 Comp Metabolic Hqj563 CO2 27.0 mEq/L 04/28/2016 Comp Metabolic Kci395 ANION GAP 11 04/28/2016 Comp Metabolic Kso940 GLUCOSE 103 mg/dL 04/28/2016 Comp Metabolic Odq785 Creat 0.8 mg/dL 04/28/2016 Comp Metabolic Xip730 eGFR 79 ml/min/1.73m2 04/28/2016 Comp Metabolic Isq907 BUN 11 mg/dL 04/28/2016 Comp Metabolic Fez984 B/C Ratio 14.5 Ratio 04/28/2016 Comp Metabolic Mwa262 CALCIUM 9.1 mg/dL 04/28/2016 Comp Metabolic Oxe450 ALK PHOS 60 U/L 04/28/2016 Comp Metabolic Cgb587 AST(SGOT) 15 U/L 04/28/2016 Comp Metabolic Zib841 ALT(SGPT) 13 U/L 04/28/2016 Comp Metabolic Ixl412 BILI T 1.0 mg/dL 04/28/2016 Comp Metabolic Hdf980 ALBUMIN 4.1 g/dL 04/28/2016 Comp Metabolic Rpi282 TPRO 6.5 g/dL 04/28/2016 Comp Metabolic Dvc463 GLOB 2.4 g/dL 04/28/2016 Comp Metabolic Hpp081 A/G Ratio 1.7 Ratio 04/28/2016 Comp Metabolic Ogv290 Osmo 285 mOsmo 04/28/2016 Cbc With Differential [...] 26.8 % 04/28/2016 Cbc With Differential Ord2 [place]% 9.2 % 04/28/2016 Cbc With Differential Ord2 [...] 1.40 K/ul 04/28/2016 Cbc With Differential Ord2 [place] ABS# 0.5 K/ul 04/28/2016 Cbc With Differential Ord2 Eos ABS# 0.2 K/ul 04/28/2016 Cbc With Differential Ord2 Baso ABS# 0.0 K/ul 04/28/2016 Lipid Ord30 CHOL 131 mg/dL 04/28/2016 Lipid Ord30 HDL 36.0 mg/dl 04/28/2016 Lipid Ord30 TRIG 134 mg/dL 04/28/2016 Lipid Ord30 LDL 68 mg/dL 04/28/2016 Lipid Ord30 C/HDL 3.6 Ratio 04/28/2016 Tsh Ord6 hTSH II 1.10 uIU/mL 04/28/2016 Culture Urine [id number] URINE CULTURE SEE NOTES 03/16/2016 Culture Urine [id number] Continued Results 03/16/2016 Urine Culture Ucult Complete >100,000 col/ml aerobic growth sent to ref lab 03/14/2016 Lipid Ord30 CHOL 226 mg/dL 10/15/2015 Lipid Ord30 HDL 44.0 mg/dl 10/15/2015 Lipid Ord30 TRIG 220 mg/dL 10/15/2015 Lipid Ord30 LDL 138 mg/dL 10/15/2015 Lipid Ord30 C/HDL 5.1 Ratio 10/15/2015 Comp Metabolic Hkk718 NA 139 mEq/L 10/15/2015 Comp Metabolic Rnl433 K 4.2 mEq/L 10/15/2015 Comp Metabolic Lkf188 CL 104 mEq/L 10/15/2015 Comp Metabolic Hde290 CO2 25.0 mEq/L 10/15/2015 Comp Metabolic Jhm296 ANION GAP 14 10/15/2015 Comp Metabolic Fio043 GLUCOSE 114 mg/dL 10/15/2015 Comp Metabolic Irz716 Creat 1.0 mg/dL 10/15/2015 Comp Metabolic Huw770 eGFR 59 ml/min/1.73m2 10/15/2015 Comp Metabolic Cgl927 BUN 18 mg/dL 10/15/2015 Comp Metabolic Wss117 B/C Ratio 18.4 Ratio 10/15/2015 Comp Metabolic Bcc315 CALCIUM 9.8 mg/dL 10/15/2015 Comp Metabolic Fsy861 ALK PHOS 59 U/L 10/15/2015 Comp Metabolic Brf122 AST(SGOT) 14 U/L 10/15/2015 Comp Metabolic Csb264 ALT(SGPT) 13 U/L 10/15/2015 Comp Metabolic Bak659 BILI T 0.9 mg/dL 10/15/2015 Comp Metabolic Eqf739 ALBUMIN 4.2 g/dL 10/15/2015 Comp Metabolic Pxj140 TPRO 6.6 g/dL 10/15/2015 Comp Metabolic Ney115 GLOB 2.4 g/dL 10/15/2015 Comp Metabolic Scm962 A/G Ratio 1.8 Ratio 10/15/2015 Comp Metabolic Lek578 Osmo 280 mOsmo 10/15/2015 Tsh Ord6 hTSH [...] 29.7 pg 10/15/2015 Cbc With Differential Ord2 [place]% 8.5 % 10/15/2015 Cbc With Differential Ord2 [...] 1.95 K/ul 10/15/2015 Cbc With Differential Ord2 [place] ABS# 0.6 K/ul 10/15/2015 Cbc With Differential Ord2 Eos ABS# 0.2 K/ul 10/15/2015 Cbc With Differential Ord2 Baso ABS# 0.0 K/ul 10/15/2015 Cbc With Differential Ord2 New Analyzer Notice Please note new ref ranges starting 09-04-2015 due to implemntation of new five part differential hematolgy analyzer. 10/15/2015 Comp Metabolic Vwx435 NA 136 mEq/L 04/12/2015 Comp Metabolic Dsx658 K 4.4 mEq/L 04/12/2015 Comp Metabolic Prg220 CL 102 mEq/L 04/12/2015 Comp Metabolic Nby138 CO2 28.0 mEq/L 04/12/2015 Comp Metabolic Rwo137 ANION GAP 10 04/12/2015 Comp Metabolic Uav305 GLUCOSE 86 mg/dL 04/12/2015 Comp Metabolic Rpt464 Creat 0.9 mg/dL 04/12/2015 Comp Metabolic Uwk251 eGFR 70 ml/min/1.73m2 04/12/2015 Comp Metabolic Fxo935 BUN 17 mg/dL 04/12/2015 Comp Metabolic Sna318 B/C Ratio 20.0 Ratio 04/12/2015 Comp Metabolic Rak892 CALCIUM 9.6 mg/dL 04/12/2015 Comp Metabolic Ycg555 ALK PHOS 60 U/L 04/12/2015 Comp Metabolic Xkv673 AST(SGOT) 16 U/L 04/12/2015 Comp Metabolic Nhg744 ALT(SGPT) 14 U/L 04/12/2015 Comp Metabolic Ulz762 BILI T 1.0 mg/dL 04/12/2015 Comp Metabolic Vjq532 ALBUMIN 4.4 g/dL 04/12/2015 Comp Metabolic Idm188 TPRO 6.8 g/dL 04/12/2015 Comp Metabolic Yqt651 GLOB 2.4 g/dL 04/12/2015 Comp Metabolic Vkw228 A/G Ratio 1.8 Ratio 04/12/2015 Comp Metabolic Vie673 Osmo 273 mOsmo 04/12/2015 Cbc With Differential [...] Differential Ord2 RDW 15.0 % 04/12/2015 B12 Pxx124 B12 >1500.00 pg/ml 04/12/2015 Tsh Ord6 hTSH II 1.17 uIU/mL 04/12/2015 Vitamin D 25 Oh [id number] VITAMIN D, 25 HYDROXY 62.36 ng/mL A1C HPLC [id number] A1C HPLC 36026-3 6.1 % 01/24/2013 TSH 0964255 TSH 1.854 uIU/ML 01/23/2013 GFR CALC 4647344 GFR AA >60 ML/MIN 01/23/2013 GFR CALC 1424016 GFR NON-AA >60 ML/MIN 01/23/2013 CBC 4964995 WBC 8.7 10e9/L 01/23/2013 CBC 6296921 RBC 3.84 10e12/L 01/23/2013 CBC 8695185 HGB 11.3 g/dL 01/23/2013 CBC 1150377 HCT DET 34.5 % 01/23/2013 CBC 4297811 MCV 89.8 fL 01/23/2013 CBC 7260296 MCH 29.4 pg 01/23/2013 CBC 1322394 MCHC 32.8 g/dL 01/23/2013 CBC 1997853 PLT 384 10e9/L 01/23/2013 CBC 3163235 MPV 10.7 fL 01/23/2013 CBC 3787740 CHRISTIANNE % 70.2 % 01/23/2013 CBC 1319863 LY % 19.2 % 01/23/2013 CBC 3543403 MON % 6.9 % 01/23/2013 CBC 4492603 EOS % 3.5 % 01/23/2013 CBC 6557687 BASO % 0.2 % 01/23/2013 CBC 0216268 RDW 13.0 % 01/23/2013 CBC 3111525 ABS CHRISTIANNE 6.11 10e9/L 01/23/2013 CBC 9620219 ABS LYMPH 1.67 10e9/L 01/23/2013 CBC 7504579 ABS MONO 0.60 10e9/L 01/23/2013 CBC 8590326 ABS EOS 0.30 10e9/L 01/23/2013 CBC 5398516 ABS BASO 0.02 10e9/L 01/23/2013 CBC 8875087 RDW-SD 42.1 fL 01/23/2013 CHEM 14 1498877 AST 11 U/L 01/23/2013 CHEM 14 3843264 ALT 16 IU/L 01/23/2013 CHEM 14 4362402 BUN 10 MG/DL 01/23/2013 CHEM 14 2657769 ALBUMIN 4.4 GM/DL 01/23/2013 CHEM 14 6580976 CHLORIDE 104 MMOL/L 01/23/2013 CHEM 14 7639278 BILI TOT 1.1 MG/DL 01/23/2013 CHEM 14 9197763 ALK PHOS 74 U/L 01/23/2013 CHEM 14 7206123 SODIUM 141 MMOL/L 01/23/2013 CHEM 14 4335747 CREATININE 0.76 MG/DL 01/23/2013 CHEM 14 5930937 CALCIUM 9.4 MG/DL 01/23/2013 CHEM 14 0263187 POTASSIUM 3.4 MMOL/L 01/23/2013 CHEM 14 0891945 PROT TOT 6.6 GM/DL 01/23/2013 CHEM 14 8922573 GLUCOSE 107 MG/DL 01/23/2013 CHEM 14 2133908 BICARB 28 MMOL/L 01/23/2013 CHEM 14 6241925 ANION GAP 9 MEQ/L 01/23/2013 ESR 1837963 ESR 28 MM/HR 12/28/2012 CRP 5700447 CRP 0.5 MG/DL 12/28/2012 VIT B 12 5169837 VIT B 12 760 PG/ML 12/28/2012 URIC ACID 6298326 URIC ACID 4.4 MG/DL 12/27/2012 GFR CALC 7506752 GFR AA >60 ML/MIN 12/27/2012 GFR CALC 5166918 GFR NON-AA >60 ML/MIN 12/27/2012 CHEM 14 6427806 AST 16 U/L 12/27/2012 CHEM 14 9497567 ALT 17 IU/L 12/27/2012 CHEM 14 9465503 BUN 8 MG/DL 12/27/2012 CHEM 14 0715503 ALBUMIN 4.4 GM/DL 12/27/2012 CHEM 14 7084156 CHLORIDE 104 MMOL/L 12/27/2012 CHEM 14 2563565 BILI TOT 1.0 MG/DL 12/27/2012 CHEM 14 2003669 ALK PHOS 79 U/L 12/27/2012 CHEM 14 8384215 SODIUM 142 MMOL/L 12/27/2012 CHEM 14 6017859 CREATININE 0.72 MG/DL 12/27/2012 CHEM 14 8099232 CALCIUM 9.3 MG/DL 12/27/2012 CHEM 14 8676222 POTASSIUM 3.4 MMOL/L 12/27/2012 CHEM 14 4654329 PROT TOT 6.9 GM/DL 12/27/2012 CHEM 14 6360705 GLUCOSE 96 MG/DL 12/27/2012 CHEM 14 5769317 BICARB 32 MMOL/L 12/27/2012 CHEM 14 5924385 ANION GAP 6 MEQ/L 12/27/2012 CBC 4762047 WBC 8.2 10e9/L 12/27/2012 CBC 4301011 RBC 3.75 10e12/L 12/27/2012 CBC 8108558 HGB 11.1 g/dL 12/27/2012 CBC 0262898 HCT DET 34.2 % 12/27/2012 CBC 7606528 MCV 91.2 fL 12/27/2012 CBC 1843283 MCH 29.6 pg 12/27/2012 CBC 6189262 MCHC 32.5 g/dL 12/27/2012 CBC 2530038 PLT 335 10e9/L 12/27/2012 CBC 3660639 MPV 10.7 fL 12/27/2012 CBC 2895946 CHRISTIANNE % 68.2 % 12/27/2012 CBC 8469278 LY % 22.0 % 12/27/2012 CBC 6697940 MON % 7.3 % 12/27/2012 CBC 3383086 EOS % 2.3 % 12/27/2012 CBC 7377373 BASO % 0.2 % 12/27/2012 CBC 8846185 RDW 12.8 % 12/27/2012 CBC 1833561 ABS CHRISTIANNE 5.59 10e9/L 12/27/2012 CBC 6147558 ABS LYMPH 1.80 10e9/L 12/27/2012 CBC 6460649 ABS MONO 0.60 10e9/L 12/27/2012 CBC 3887646 ABS EOS 0.19 10e9/L 12/27/2012 CBC 8256978 ABS BASO 0.02 10e9/L 12/27/2012 CBC 4200579 RDW-SD 41.4 fL 12/27/2012 A1C HPLC 1978377 A1C HPLC 57442-1 5.4 % 10/10/2012 LIPID GRP HDL TEST 45 MG/DL 10/07/2012 LIPID GRP TRIG 182 MG/DL 10/07/2012 LIPID GRP TEST LDL 94 MG/DL 10/07/2012 LIPID GRP CHOL 175 MG/DL 10/07/2012 LIPID GRP RCHOL/HDL 3.89 RATIO 10/07/2012 TSH 5772045 TSH 1.239 uIU/ML 10/07/2012 GFR CALC 7386697 GFR AA >60 ML/MIN 10/07/2012 GFR CALC 1786807 GFR NON-AA >60 ML/MIN 10/07/2012 CBC 4041929 WBC 7.1 10e9/L 10/07/2012 CBC 7473575 RBC 3.98 10e12/L 10/07/2012 CBC 6911275 HGB 11.8 g/dL 10/07/2012 CBC 4900835 HCT DET 36.0 % 10/07/2012 CBC 5304140 MCV 90.5 fL 10/07/2012 CBC 7748556 MCH 29.6 pg 10/07/2012 CBC 8318443 MCHC 32.8 g/dL 10/07/2012 CBC 8229245 PLT 333 10e9/L 10/07/2012 CBC 8376575 MPV 11.5 fL 10/07/2012 CBC 8991629 CHRISTIANNE % 65.7 % 10/07/2012 CBC 6807342 LY % 24.0 % 10/07/2012 CBC 2577588 MON % 7.4 % 10/07/2012 CBC 9071691 EOS % 2.5 % 10/07/2012 CBC 5562989 BASO % 0.4 % 10/07/2012 CBC 4722414 RDW 12.7 % 10/07/2012 CBC 9659310 ABS CHRISTIANNE 4.66 10e9/L 10/07/2012 CBC 3503242 ABS LYMPH 1.70 10e9/L 10/07/2012 CBC 6600261 ABS MONO 0.53 10e9/L 10/07/2012 CBC 6888712 ABS EOS 0.18 10e9/L 10/07/2012 CBC 7081824 ABS BASO 0.03 10e9/L 10/07/2012 CBC 1120633 RDW-SD 41.3 fL 10/07/2012 CHEM 14 6153992 AST 15 U/L 10/07/2012 CHEM 14 7137229 ALT 15 IU/L 10/07/2012 CHEM 14 5149249 BUN 7 MG/DL 10/07/2012 CHEM 14 5386165 ALBUMIN 4.3 GM/DL 10/07/2012 CHEM 14 6887724 CHLORIDE 103 MMOL/L 10/07/2012 CHEM 14 8518110 BILI TOT 1.2 MG/DL 10/07/2012 CHEM 14 5798633 ALK PHOS 83 U/L 10/07/2012 CHEM 14 9525549 SODIUM 139 MMOL/L 10/07/2012 CHEM 14 9127520 CREATININE 0.74 MG/DL 10/07/2012 CHEM 14 6650788 CALCIUM 9.4 MG/DL 10/07/2012 CHEM 14 8126903 POTASSIUM 3.6 MMOL/L 10/07/2012 CHEM 14 0639110 PROT TOT 6.6 GM/DL 10/07/2012 CHEM 14 9553805 GLUCOSE 114 MG/DL 10/07/2012 CHEM 14 1361727 BICARB 25 MMOL/L 10/07/2012 CHEM 14 9460192 ANION GAP 11 MEQ/L 10/07/2012 MAGNESIUM 7398500 MAGNESIUM 1.5 MEQ/L 02/02/2012 GFR CALC 5371028 GFR AA >60 ML/MIN 02/01/2012 GFR CALC 8257515 GFR NON-AA 53.0L ML/MIN 02/01/2012 CHEM 14 0632633 AST 12 U/L 02/01/2012 CHEM 14 3418622 ALT 12 IU/L 02/01/2012 CHEM 14 5917940 BUN 24 MG/DL 02/01/2012 CHEM 14 5597586 ALBUMIN 4.3 GM/DL 02/01/2012 CHEM 14 5018830 CHLORIDE 108 MMOL/L 02/01/2012 CHEM 14 5103684 BILI TOT 0.6 MG/DL 02/01/2012 CHEM 14 0275604 ALK PHOS 69 U/L 02/01/2012 CHEM 14 9929035 SODIUM 142 MMOL/L 02/01/2012 CHEM 14 8532910 CREATININE 1.03 MG/DL 02/01/2012 CHEM 14 3052310 CALCIUM 9.5 MG/DL 02/01/2012 CHEM 14 1953380 POTASSIUM 5.1 MMOL/L 02/01/2012 CHEM 14 8941180 PROT TOT 6.7 GM/DL 02/01/2012 CHEM 14 1181043 GLUCOSE 112 MG/DL 02/01/2012 CHEM 14 0253492 BICARB 22 MMOL/L 02/01/2012 CHEM 14 7313922 ANION GAP 12 MEQ/L 02/01/2012 CBC 5997245 WBC 9.6 10e9/L 01/22/2012 CBC 6970482 RBC 3.71 10e12/L 01/22/2012 CBC 9799786 HGB 10.8 g/dL 01/22/2012 CBC 9814402 HCT DET 33.4 % 01/22/2012 CBC 3920037 MCV 90.0 fL 01/22/2012 CBC 8028419 MCH 29.1 pg 01/22/2012 CBC 0335281 MCHC 32.3 g/dL 01/22/2012 CBC 3005723 PLT 359 10e9/L 01/22/2012 CBC 8658199 MPV 10.4 fL 01/22/2012 CBC 7201760 CHRISTIANNE % 66.2 % 01/22/2012 CBC 2596311 LY % 22.4 % 01/22/2012 CBC 3704182 MON % 8.4 % 01/22/2012 CBC 2149735 EOS % 2.8 % 01/22/2012 CBC 8485332 BASO % 0.2 % 01/22/2012 CBC 5169640 RDW 14.2 % 01/22/2012 CBC 9368091 ABS CHRISTIANNE 6.36 10e9/L 01/22/2012 CBC 5973879 ABS LYMPH 2.15 10e9/L 01/22/2012 CBC 8059503 ABS MONO 0.81 10e9/L 01/22/2012 CBC 6210181 ABS EOS 0.27 10e9/L 01/22/2012 CBC 0177627 ABS BASO 0.02 10e9/L 01/22/2012 CBC 2548232 RDW-SD 44.8 fL 01/22/2012 TSH 3422744 TSH 1.539 uIU/ML 01/22/2012 GFR CALC 3941600 GFR AA 26.0L ML/MIN 01/22/2012 GFR CALC 3384775 GFR NON-AA 22.0 ML/MIN 01/22/2012 CHEM 14 0340560 AST 13 U/L 01/22/2012 CHEM 14 2107259 ALT 13 IU/L 01/22/2012 CHEM 14 9042708 BUN 42 MG/DL 01/22/2012 CHEM 14 1785757 ALBUMIN 4.4 GM/DL 01/22/2012 CHEM 14 9083039 CHLORIDE 103 MMOL/L 01/22/2012 CHEM 14 0513020 BILI TOT 0.8 MG/DL 01/22/2012 CHEM 14 9204958 ALK PHOS 82 U/L 01/22/2012 CHEM 14 7351630 SODIUM 138 MMOL/L 01/22/2012 CHEM 14 2248959 CREATININE 2.23 MG/DL 01/22/2012 CHEM 14 2385316 CALCIUM 9.7 MG/DL 01/22/2012 CHEM 14 5108429 POTASSIUM 4.9 MMOL/L 01/22/2012 CHEM 14 2217007 PROT TOT 7.1 GM/DL 01/22/2012 CHEM 14 6812950 GLUCOSE 92 MG/DL 01/22/2012 CHEM 14 3769833 BICARB 20 MMOL/L 01/22/2012 CHEM 14 9406040 ANION GAP 15 MEQ/L 01/22/2012 LIPID GRP HDL TEST 35 MG/DL 01/22/2012 LIPID GRP TRIG 320 MG/DL 01/22/2012 LIPID GRP TEST LDL 89 MG/DL 01/22/2012 LIPID GRP CHOL 188 MG/DL 01/22/2012 LIPID GRP RCHOL/HDL 5.37 RATIO 01/22/2012 URINALYSIS NONAUTO W/O SCOPE 19352 Specific [place] 1.030 DateTime(Free Text in Aprima) URINALYSIS NONAUTO W/O SCOPE 60380 PH 6 DateTime(Free Text in Aprima) URINALYSIS NONAUTO W/O SCOPE 80166 GLUCOSE neg DateTime( Free Text in Aprima) URINALYSIS NONAUTO W/O SCOPE 28176 Protein neg DateTime( Free Text in Aprima) URINALYSIS NONAUTO W/O SCOPE 19043 Blood neg DateTime(Free Text in Aprima) URINALYSIS NONAUTO W/O SCOPE 02871 Bilirubin neg DateTime(Free Text in Apr) URINALYSIS NONAUTO W/O SCOPE 51739 Ketones neg DateTime( Free Text in Apr) URINALYSIS NONAUTO W/O SCOPE 64992 Urobilinogen neg DateTime(Free Text in Aprima) URINALYSIS NONAUTO W/O SCOPE 28440 Nitrite neg DateTime( Free Text in Aprima) URINALYSIS NONAUTO W/O SCOPE 08755 Leukocytes neg DateTime(Free Text in ) Review of Systems System Result Effective Dates [...] clear 05/16/2014 None Full Exam - General 1995 Ears/Nose/Throat [...] hordeolum 12/07/2013 None Full Exam - General 1995 Constitutional general appearance Overall: well developed 09/25/2013 None Full Exam - General 1994 Constitutional general appearance Overall: in no acute distress 09/25/2013 None Full Exam - General 1994 Constitutional general appearance Overall: well nourished 09/25/2013 None Full Exam - General 1994 Eyes pupils and irises Overall: pupils equal, round, reactive to light and accomodation 09/25/2013 None Full Exam - General 1994 Ears/Nose/Throat oral cavity/pharynx/larynx Overall: oral mucosa clear 09/25/2013 None Full Exam - General 1994 Ears/Nose/Throat oral cavity/pharynx/larynx Overall: oropharyngeal mucosa clear 09/25/2013 None Full Exam - General 1994 Ears/Nose/Throat oral cavity/pharynx/larynx Overall: no masses 09/25/2013 [...] affect 09/04/2013 None Full Exam - General 1994 Psychiatric mood and affect Mood: happy 09/04/2013 None Full Exam - General 1994 Constitutional general appearance Overall: well nourished 05/18/2013 None Full Exam - General 1995 Constitutional general appearance Overall: well developed 05/18/2013 None Full Exam - General 1994 [...] retractions 04/18/2013 None Full Exam - General 1995 Respiratory respiratory effort/rhythm Overall: normal rate 04/18/2013 None Full Exam - General 1995 Cardiovascular extremities Overall: no clubbing 04/18/2013 None Full Exam - General 1994 Cardiovascular auscultation of heart Overall: regular rate 04/18/2013 None Full Exam - General 1995 Cardiovascular auscultation of heart Systolic murmur: holosystolic 04/18/2013 None Full Exam - General 1994 Cardiovascular auscultation of heart Systolic murmur grade: II/ 04/18/2013 None Full Exam - General 1995 Abdomen abdominal exam Overall: no tenderness 04/18/2013 None Full Exam - General 1995 Abdomen abdominal exam Overall: normal bowel sounds 04/18/2013 None Full Exam - General 1995 Lymphatic neck nodes Overall: anterior cervical chain benign 04/18/2013 None Full Exam - General 1994 Lymphatic [...] accomodation 03/16/2013 None Full Exam - General 1995 Ears/Nose/Throat oral cavity/pharynx/larynx Overall: oral mucosa clear 03/16/2013 None Full Exam - General 1995 Ears/Nose/Throat oral cavity/pharynx/larynx Overall: oropharyngeal mucosa clear 03/16/2013 None Full Exam - General 1995 Ears/Nose/Throat oral cavity/pharynx/larynx Overall: no masses 03/16/2013 None Full Exam - General 1994 Respiratory auscultation Overall: breath sounds clear bilaterally 03/16/2013 None Full Exam - General 1994 Respiratory respiratory effort/rhythm Overall: no retractions 03/16/2013 None Full Exam - General 1994 Respiratory respiratory effort/rhythm Overall: normal rate 03/16/2013 [...] rate 01/26/2013 None Full Exam - General 1994 Cardiovascular auscultation of heart Systolic murmur: holosystolic 01/26/2013 None Full Exam - General 1994 Cardiovascular auscultation of heart Systolic murmur grade: II/ 01/26/2013 None Full Exam - General 1994 Abdomen abdominal exam Overall: no tenderness 01/26/2013 None Full Exam - General 1995 [...] bilaterally 12/27/2012 None Full Exam - General 1995 Respiratory respiratory effort/rhythm Overall: no retractions 12/27/2012 None Full Exam - General 1995 Respiratory respiratory effort/rhythm Overall: normal rate 12/27/2012 [...] distress 10/11/2012 None Full Exam - General 1995 Constitutional general appearance Overall: well nourished 10/11/2012 [...] rate 10/11/2012 None Full Exam - General 1994 Cardiovascular auscultation of heart Systolic murmur: holosystolic 10/11/2012 None Full Exam - General 1994 Cardiovascular auscultation of heart Systolic murmur grade: II/ 10/11/2012 None Full Exam - General 1994 Abdomen abdominal exam Overall: no tenderness 10/11/2012 None Full Exam - General 1994 Abdomen abdominal exam Overall: normal bowel sounds 10/11/2012 None Full Exam - General 1994 Lymphatic neck nodes Overall: anterior cervical chain benign 10/11/2012 None Full Exam - General 1994 Constitutional general appearance Overall: well developed 09/21/2012 None Full Exam - General 1994 Cardiovascular auscultation of heart Overall: regular rate 09/21/2012 None Full Exam - General 1994 Cardiovascular auscultation of heart Systolic murmur: holosystolic 09/21/2012 None Full Exam - General 1994 [...] accomodation 05/16/2012 None Full Exam - General 1995 [...] 02/01/2012 None Full Exam - General 1995 Ears/Nose/Throat oral cavity/pharynx/larynx Overall: no masses 02/01/2012 None Full Exam - General 1995 Ears/Nose/Throat oral cavity/pharynx/larynx Overall: oral mucosa clear 02/01/2012 None Full Exam - General 1995 Respiratory respiratory effort/rhythm Overall: normal rate 02/01/2012 None Full Exam - General 1994 Respiratory respiratory effort/rhythm Overall: no retractions 02/01/2012 None Full Exam - General 1995 Respiratory auscultation Overall: breath sounds clear bilaterally 02/01/2012 None Full Exam - General 1995 Cardiovascular extremities Overall: no clubbing 02/01/2012 None [...] NO PRSV 4 ABDOULAYE 3 YRS+ CPT-4: 43345 05/27/2017 ADMIN INFLUENZA VIRUS VAC CPT-4: G0008 05/27/2017 THER/PROPH/DIAG INJ SC/IM CPT-4: 28682 05/27/2017 VITAMIN B12 INJECTION CPT-4: J3420 05/27/2017 THER/PROPH/DIAG INJ SC/IM CPT-4: 29463 04/27/2017 VITAMIN B12 INJECTION CPT-4: J3420 04/27/2017 THER/PROPH/DIAG INJ SC/IM CPT-4: 92619 04/09/2017 VITAMIN B12 INJECTION CPT-4: J3420 04/09/2017 THER/PROPH/DIAG INJ SC/IM CPT-4: 80884 03/23/2017 VITAMIN B12 INJECTION CPT-4: J3420 03/23/2017 THER/PROPH/DIAG INJ SC/IM CPT-4: 04231 03/11/2017 VITAMIN B12 INJECTION CPT-4: J3420 03/11/2017 URINALYSIS NONAUTO W/O SCOPE CPT-4: 40416 02/22/2017 THER/PROPH/DIAG INJ SC/IM CPT-4: 46652 02/22/2017 TRIAMCINOLONE ACET INJ NOS CPT-4: J3301 02/22/2017 PPPS, SUBSEQ VISIT CPT -4: G0439 12/28/2016 URINALYSIS NONAUTO W/O SCOPE CPT-4: 92055 12/24/2016 THER/PROPH/DIAG INJ SC/IM CPT-4: 26118 10/14/2016 VITAMIN B12 INJECTION CPT-4: J3420 10/14/2016 THER/PROPH/DIAG INJ SC/IM CPT-4: 17929 09/16/2016 VITAMIN B12 INJECTION CPT-4: J3420 09/16/2016 THER/PROPH/DIAG INJ SC/IM CPT-4: 16218 08/11/2016 VITAMIN B12 INJECTION CPT-4: J3420 08/11/2016 URINALYSIS NONAUTO W/O SCOPE CPT-4: 76658 05/27/2016 ADMIN INFLUENZA VIRUS VAC CPT-4: G0008 04/23/2016 FLU VACC PRSV FREE INC ANTIG CPT-4: 19596 04/23/2016 URINALYSIS NONAUTO W/O SCOPE CPT-4: 99314 03/13/2016 URINALYSIS NONAUTO W/O SCOPE CPT-4: 61360 03/03/2016 VITAMIN B12 INJECTION CPT-4: J3420 12/03/2015 THER/PROPH/DIAG INJ SC/IM CPT-4: 68265 04/12/2015 VITAMIN B12 INJECTION CPT-4: J3420 04/12/2015 VITAMIN B12 INJECTION CPT-4: J3420 01/22/2015 THER/PROPH/DIAG INJ SC/IM CPT-4: 60415 01/22/2015 TRIAMCINOLONE ACET INJ NOS CPT-4: J3301 01/08/2015 THER/PROPH/DIAG INJ SC/IM CPT-4: 25592 01/08/2015 VITAMIN B12 INJECTION CPT-4: J3420 01/08/2015 THER/PROPH/DIAG INJ SC/IM CPT-4: 51164 11/28/2014 VITAMIN B12 INJECTION CPT-4: J3420 11/28/2014 THER/PROPH/DIAG INJ SC/IM CPT-4: 42953 10/04/2014 VITAMIN B12 INJECTION CPT-4: J3420 10/04/2014 VITAMIN B12 INJECTION CPT-4: J3420 09/10/2014 ADMIN PNEUMOCOCCAL VACCINE SNOMED CT: [id number] CPT-4: G0009 08/06/2014 Pneumococcal Polysaccharide Vaccine, 23-Valent, Ad CPT-4: 35422 08/06/2014 THER/PROPH/DIAG INJ SC/IM CPT-4: 56356 08/06/2014 VITAMIN B12 INJECTION CPT-4: J3420 08/06/2014 THER/PROPH/DIAG INJ SC/IM CPT-4: 70445 07/12/2014 VITAMIN B12 INJECTION CPT-4: J3420 07/12/2014 THER/PROPH/DIAG INJ SC/IM CPT-4: 82227 06/28/2014 VITAMIN B12 INJECTION CPT-4: J3420 06/28/2014 THER/PROPH/DIAG INJ SC/IM CPT-4: 38041 06/14/2014 VITAMIN B12 INJECTION CPT-4: J3420 06/14/2014 THER/PROPH/DIAG INJ SC/IM CPT-4: 93276 05/31/2014 VITAMIN B12 INJECTION CPT-4: J3420 05/31/2014 ADMIN INFLUENZA VIRUS VAC CPT-4: G0008 05/16/2014 FLU VAC NO PRSV 4 ABDOULAYE 3 YRS+ Assigned to/Sandrine Velasquez CPT-4: 96823Krybeqb 05/16/2014 THER/PROPH/DIAG INJ SC/IM CPT-4: 43816 05/16/2014 VITAMIN B12 INJECTION CPT-4: J3420 05/16/2014 THER/PROPH/DIAG INJ SC/IM CPT-4: 14281 04/05/2014 VITAMIN B12 INJECTION CPT-4: J3420 04/05/2014 THER/PROPH/DIAG INJ SC/IM CPT-4: 61101 02/01/2014 VITAMIN B12 INJECTION CPT-4: J3420 02/01/2014 THER/PROPH/DIAG INJ SC/IM CPT-4: 17449 12/29/2013 VITAMIN B12 INJECTION CPT-4: J3420 12/29/2013 TRIAMCINOLONE ACET INJ NOS CPT-4: J3301 05/18/2013 DRAIN/INJECT JOINT/BURSA CPT-4: 74391 05/18/2013 THER/PROPH/DIAG INJ SC/IM CPT-4: 86873 04/18/2013 KETOROLAC TROMETHAMINE INJ CPT-4: J1885 04/18/2013 PRESCRIP TRANSMIT VIA ERX SY CPT-4: G8553 03/16/2013 PRESCRIP TRANSMIT VIA ERX SY CPT-4: G8553 01/26/2013 ROUTINE VENIPUNCTURE CPT-4: 62743 01/23/2013 ROUTINE VENIPUNCTURE CPT-4: 46287 12/27/2012 PRESCRIP TRANSMIT VIA ERX SY CPT-4: G8553 12/27/2012 ROUTINE VENIPUNCTURE CPT-4: 03942 10/07/2012 PRESCRIP TRANSMIT VIA ERX SY CPT-4: G8553 09/21/2012 PRESCRIP TRANSMIT VIA ERX SY CPT-4: G8553 08/02/2012 TRIAMCINOLONE ACET INJ NOS CPT-4: J3301 06/27/2012 PRESCRIP TRANSMIT VIA ERX SY CPT-4: G8553 06/27/2012 TRIAMCINOLONE ACET INJ NOS CPT-4: J3301 06/06/2012 DRAIN/INJECT JOINT/BURSA CPT-4: 38921 06/06/2012 VITAMIN B12 INJECTION CPT-4: J3420 02/08/2012 URINALYSIS NONAUTO W/O SCOPE CPT-4: 40927 02/08/2012 ROUTINE VENIPUNCTURE CPT-4: 83760 02/01/2012 ROCEPHIN, PER 250 MG CPT-4: J0696 02/01/2012 PRESCRIP TRANSMIT VIA ERX SY CPT-4: G8553 02/01/2012 THER/PROPH/DIAG INJ SC/IM CPT-4: 52679 02/01/2012 ROUTINE VENIPUNCTURE CPT-4: 17618 01/22/2012 PRESCRIP TRANSMIT VIA ERX SY CPT-4: G8553 01/22/2012 TRIAMCINOLONE ACET INJ NOS CPT-4: J3301 10/19/2011 CA SCREEN;PELVIC/BREAST EXAM CPT-4: G0101 09/09/2011 KETOROLAC TROMETHAMINE INJ CPT-4: J1885 07/15/2011 THER/PROPH/DIAG INJ SC/IM CPT-4: 66296 07/15/2011 THER/PROPH/DIAG INJ SC/IM CPT-4: 26733 07/02/2011 KETOROLAC TROMETHAMINE INJ CPT-4: J1885 07/02/2011 KETOROLAC TROMETHAMINE INJ CPT-4: J1885 06/24/2011 THER/PROPH/DIAG INJ SC/IM CPT-4: 42188 06/24/2011 Vital Signs Date Vital 09/28/2017 Blood Pressure 1: 144/76 Code : 8480-6 Heart Rate 1: 67 bpm SpO2: 96% 09/09/2017 Blood Pressure 1: 158/96 Code : 8480-6 Heart Rate 1: 65 bpm SpO2: 96% 09/03/2017 Blood Pressure 1: 162/76 Code : 8480-6 BMI: 23.6 Code : 37414-5 Height: 5'5" Weight: 142 lbs 05/27/2017 Blood Pressure 1: 158/78 Code : 8480-6 BMI: 23.1 Code : 68421-2 Heart Rate 1 : 57 bpm Height: 5'5" SpO2: 99% Weight: 139 lbs 04/27/2017 Blood Pressure 1: 142/78 Code : 8480-6 Blood Pressure 1: 136/72 Code: 8480-6 BMI: 24.0 Code: 00446-2 Heart Rate 1: 69 bpm Height: 5'5" SpO2: 94% Weight: 144 lbs 03/09/2017 Blood Pressure 1: 138/80 Code : 8480-6 BMI: 23.5 Code : 40375-1 Heart Rate 1 : 76 bpm Height: 5'5" Weight: 141 lbs 4 oz 02/22/2017 Blood Pressure 1: 144/88 Code : 8480-6 BMI: 24.0 Code : 87914-2 Heart Rate 1 : 100 bpm Height: 5'5" SpO2: 92% Weight: 144 lbs 12/28/2016 Blood Pressure 1: 144/84 Code : 8480-6 BMI: 24.3 Code : 28404-7 Heart Rate 1 : 96 bpm Height: 5'5" SpO2: 97% Waist Measure (cm): 76 cm Weight: 146 lbs 12/24/2016 Blood Pressure 1: 148/86 Code : 8480-6 BMI: 24.3 Code : 32196-0 Heart Rate 1 : 93 bpm Height: 5'5" SpO2: 96% Weight: 146 lbs 10/06/2016 Blood Pressure 1: 144/72 Code : 8480-6 Heart Rate 1: 71 bpm Height: 5'5" SpO2: 98% 10/01/2016 Blood Pressure 1: 136/82 Code : 8480-6 Heart Rate 1: 62 bpm Height: 5'5" SpO2: 97% Weight: 09/01/2016 Blood Pressure 1: 130/66 Code : 8480-6 BMI: 23.8 Code : 95489-8 Heart Rate 1 : 70 bpm Height: 5'5" SpO2: 98% Weight: 143 lbs 08/11/2016 Blood Pressure 1: 140/80 Code : 8480-6 BMI: 24.0 Code : 46673-4 Height: 5'5" Weight: 144 lbs 8 oz 07/01/2016 Blood Pressure 1: 136/74 Code : 8480-6 BMI: 24.3 Code : 38566-3 Heart Rate 1 : 76 bpm Height: 5'5" SpO2: 97% Weight: 146 lbs 04/23/2016 Blood Pressure 1: 130/78 Code : 8480-6 BMI: 25.1 Code : 80310-7 Heart Rate 1 : 70 bpm Height: 5'5" SpO2: 97% Weight: 151 lbs 03/03/2016 Blood Pressure 1: 138/62 Code : 8480-6 BMI: 25.6 Code : 66396-8 Heart Rate 1 : 62 bpm Height: 5'5" SpO2: 99% Weight: 154 lbs 01/14/2016 Blood Pressure 1: 162/72 Code : 8480-6 BMI: 26.6 Code : 36350-9 Heart Rate 1 : 82 bpm Height: 5'5" SpO2: 98% Weight: 160 lbs 12/03/2015 Blood Pressure 1: 130/62 Code : 8480-6 BMI: 25.8 Code : 89909-3 Heart Rate 1 : 72 bpm Height: 5'5" SpO2: 98% Weight: 155 lbs 10/10/2015 Blood Pressure 1: 118/80 Code : 8480-6 BMI: 25.6 Code : 87989-5 Heart Rate 1 : 70 bpm Height: 5'5" SpO2: 98% Weight: 154 lbs 08/28/2015 Blood Pressure 1: 152/80 Code : 8480-6 BMI: 27.7 Code : 67968-6 Heart Rate 1 : 75 bpm Height: 5'5" SpO2: 98% Weight: 166 lbs 8 oz 06/12/2015 Blood Pressure 1: 142/64 Code : 8480-6 BMI: 27.5 Code : 67046-0 Heart Rate 1 : 66 bpm Height: 5'5" SpO2: 96% Weight: 165 lbs 05/09/2015 Blood Pressure 1: 122/70 Code : 8480-6 BMI: 27.3 Code : 82664-1 Heart Rate 1 : 69 bpm Height: 5'5" SpO2: 97% Weight: 164 lbs 04/12/2015 Blood Pressure 1: 122/62 Code : 8480-6 BMI: 27.6 Code : 18475-2 Heart Rate 1 : 69 bpm Height: 5'5" SpO2: 98% Weight: 166 lbs 03/12/2015 Blood Pressure 1: 108/70 Code : 8480-6 BMI: 26.8 Code : 19806-3 Heart Rate 1 : 73 bpm Height: 5'5" SpO2: 96% Weight: 161 lbs 01/08/2015 Blood Pressure 1: 136/76 Code : 8480-6 BMI: 28.8 Code : 73378-9 Heart Rate 1 : 73 bpm Height: 5'5" SpO2: 95% Weight: 173 lbs 10/04/2014 Blood Pressure 1: 138/86 Code : 8480-6 BMI: 29.0 Code : 36957-6 Heart Rate 1 : 76 bpm Height: 5'5" Weight: 174 lbs 09/10/2014 Blood Pressure 1: 110/60 Code : 8480-6 BMI: 29.6 Code : 89332-7 Heart Rate 1 : 75 bpm Height: 5'5" Weight: 178 lbs 08/06/2014 Blood Pressure 1: 138/78 Code : 8480-6 BMI: 28.6 Code : 17111-5 Heart Rate 1 : 76 bpm Height: 5'5" Weight: 172 lbs 07/12/2014 Blood Pressure 1: 126/82 Code : 8480-6 BMI: 28.5 Code : 69426-0 Heart Rate 1 : 72 bpm Height: 5'5" Weight: 171 lbs 05/16/2014 Blood Pressure 1: 110/62 Code : 8480-6 BMI: 29.0 Code : 11536-1 Heart Rate 1 : 74 bpm Height: 5'5" SpO2: 97% Weight: 174 lbs 04/05/2014 Blood Pressure 1: 142/80 Code : 8480-6 BMI: 29.6 Code : 88678-2 Heart Rate 1 : 60 bpm Height: 5'5" Weight: 178 lbs 03/05/2014 Blood Pressure 1: 118/70 Code : 8480-6 BMI: 30.8 Code : 99567-4 Heart Rate 1 : 64 bpm Height: 5'5" Weight: 185 lbs 02/01/2014 Blood Pressure 1: 118/60 Code : 8480-6 BMI: 30.6 Code : 39919-3 Heart Rate 1 : 60 bpm Height: 5'5" Weight: 184 lbs 12/07/2013 Blood Pressure 1: 106/58 Code : 8480-6 Heart Rate 1: 64 bpm Weight: 185 lbs 09/25/2013 Blood Pressure 1: 120/68 Code : 8480-6 BMI: 30.6 Code : 28666-3 Heart Rate 1 : 72 bpm Height: 5'5" Weight: 184 lbs 09/04/2013 Blood Pressure 1: 124/80 Code : 8480-6 BMI: 30.3 Code : 75799-4 Height: 5'5" Weight: 182 lbs 05/18/2013 Blood Pressure 1: 126/70 Code : 8480-6 Weight: 174 lbs 04/18/2013 Blood Pressure 1: 120/68 Code : 8480-6 BMI: 28.6 Code : 69592-1 Heart Rate 1 : 64 bpm Height: 5'5" Weight: 172 lbs 03/16/2013 Blood Pressure 1: 134/60 Code : 8480-6 BMI: 28.6 Code : 15920-8 Heart Rate 1 : 96 bpm Height: 5'5" Weight: 172 lbs 01/26/2013 Blood Pressure 1: 128/82 Code : 8480-6 BMI: 29.6 Code : 83966-9 Heart Rate 1 : 72 bpm Height: 5'5" Weight: 178 lbs 12/27/2012 Blood Pressure 1: 148/82 Code : 8480-6 Heart Rate 1: 76 bpm Weight: 179 lbs 10/11/2012 Blood Pressure 1: 130/80 Code : 8480-6 BMI: 30.5 Code : 62156-4 Heart Rate 1 : 68 bpm Height: 5'5" Weight: 183 lbs 09/21/2012 Blood Pressure 1: 142/86 Code : 8480-6 Heart Rate 1: 80 bpm Weight: 182 lbs 08/02/2012 Blood Pressure 1: 144/72 Code : 8480-6 Heart Rate 1: 72 bpm Temperature: 36.8 (C) / 98.2 (F) Weight: 179 lbs 06/27/2012 Blood Pressure 1: 136/84 Code : 8480-6 BMI: 29.5 Code : 95781-1 Heart Rate 1 : 68 bpm Height: 5'5" Respiratory Rate: 16 bpm Weight: 177 lbs 06/06/2012 Blood Pressure 1: 144/80 Code : 8480-6 BMI: 30.6 Code : 40764-2 Heart Rate 1 : 76 bpm Height: [...] Code : 8480-6 BMI: 31.1 Code : 62169-8 Heart Rate 1 : 78 bpm Height: 5'5" Weight: 187 lbs 10/19/2011 Blood Pressure 1: 112/60 Code : 8480-6 Heart Rate 1: 80 bpm SpO2: 97% Temperature: 36.7 (C) / 98.0 (F) Weight: 188 lbs 09/09/2011 Blood Pressure 1: 130/70 Code : 8480-6 BMI: 31.1 Code : 72823-8 Heart Rate 1 : 66 bpm Height: 5'5" Weight: 187 lbs 08/13/2011 Blood Pressure 1: 116/70 Code : 8480-6 BMI: 30.6 Code : 72941-1 Heart Rate 1 : 64 bpm Height: 5'5" Respiratory Rate: 20 bpm Weight: 184 lbs 07/02/2011 Blood Pressure 1: 112/60 Code : 8480-6 BMI: 30.4 Code : 24036-2 Heart Rate 1 : 66 bpm Height: 5'5" Respiratory Rate: 12 bpm Weight: 182 lbs 8 oz 06/24/2011 Blood Pressure 1: 127/58 Code : 8480-6 Heart Rate 1: 84 bpm Weight: 04/16/2011 Blood Pressure 1: 120/78 Code : 8480-6 BMI: 30.8 Code : 67063-3 Heart Rate 1 : 76 bpm Height: [...] pain Location diffusely 04/18/2013 having epidurals in [place], concerned because they didn't do mri of [...] weeks along. 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 PATIENT, LEVEL I Diagnosis: Essential (primary) hypertension[ICD10: I10] [facility] CPT-4: 79107 09/09/2017 ([id number]) 25462 EST. PATIENT, LEVEL III Diagnosis: Essential (primary) hypertension[ICD10: I10] Diagnosis: Chronic pain syndrome[ICD10: G89.4] [facility] CPT-4: 10322 09/03/2017 ([id number]) 07183 EST. 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 PATIENT, LEVEL IV Diagnosis: Vitamin B12 deficiency anemia, unspecified[ICD10: D51.9] Diagnosis: Essential (primary) hypertension[ICD10: I10] Diagnosis: Chronic pain syndrome[ICD10: G89.4] Diagnosis: Major depressive disorder, recurrent, moderate[ICD10: F33.1] Diagnosis: Vitamin B12 deficiency anemia due to intrinsic factor deficiency[ ICD10: D51.0] Rachael Newby MD, [facility] CPT-4: 99891 04/27/2017 [id number]) 94291 EST. PATIENT, LEVEL IV Diagnosis: Essential (primary) hypertension[ICD10: I10] Diagnosis: Other specified polyneuropathies[ICD10: G62.89] Rachael Newby MD, [facility] CPT-4: 22506 03/09/2017 ([id number]) 72053 EST. PATIENT, LEVEL III Diagnosis: Essential (primary) hypertension[ICD10: I10] Diagnosis: Chronic pain syndrome[ICD10: G89.4] Diagnosis: Dysuria[ICD10: R30.0] Diagnosis: Allergic rhinitis due to pollen[ICD10: J30.1] Rachael Newby MD, [facility] CPT-4: 15189 02/22/2017 [id number]) 82007 EST. PATIENT, LEVEL IV Diagnosis: Dysuria[ICD10: R30.0] Diagnosis: Urinary tract infection, site not specified[ICD10: N39.0] Diagnosis: Chronic pain syndrome[ICD10: G89.4] Rachael Newby MD, [facility] CPT-4: 14588 12/24/2016 [id number]) 98387 EST. PATIENT, LEVEL III Diagnosis: Allergic urticaria[ICD10: L50.0] Jillian Newby MD, [facility] CPT-4: 40823 10/06/2016 ([id number]) 15166 EST. PATIENT, LEVEL IV Diagnosis: Essential (primary) hypertension[ICD10: I10] Diagnosis: Generalized anxiety disorder[ICD10: F41.1] Rachael Newby MD [facility] CPT-4: 01384 10/01/2016 ([id number]) 73303 EST. PATIENT, LEVEL III Diagnosis: Displaced fracture of fifth metatarsal bone, left foot, initial encounter for closed fracture[ICD10: S92.352A] Diagnosis: Essential (primary) hypertension[ICD10: I10] Rachael Newby MD, [facility] CPT-4: 54968 09/01/2016 ([id number]) 22091 EST. PATIENT, LEVEL IV Diagnosis: Essential (primary) hypertension[ICD10: I10] Diagnosis: Chronic pain syndrome[ICD10: G89.4] Diagnosis: Vitamin B12 deficiency anemia, unspecified[ICD10: D51.9] Diagnosis: Vitamin D deficiency, unspecified[ICD10: E55.9] Diagnosis: Anemia, unspecified[ICD10: D64.9] Jillian Newby MD, [facility] CPT-4: 53243 08/11/2016 ([id number]) 75106 EST. PATIENT, LEVEL III Diagnosis: Chronic pain syndrome[ICD10: G89.4] Diagnosis: Rash and other nonspecific skin eruption[ICD10: R21] Rachael Newby MD, [facility] CPT-4: 99901 07/01/2016 ([id number]) 71215 EST. PATIENT, LEVEL IV Diagnosis: Vitamin B12 deficiency anemia, unspecified[ICD10: D51.9] Diagnosis: Anemia, unspecified[ICD10: D64.9] Diagnosis: Essential (primary) hypertension[ICD10: I10] Rachael Newby MD, [facility] CPT-4: 34937 04/23/2016 ([id number]) 61284 EST. PATIENT, LEVEL III Diagnosis: Essential (primary) hypertension[ICD10: I10] Diagnosis: Dysuria[ICD10: R30.0] Diagnosis: Chronic pain syndrome[ICD10: G89.4] Rachael Newby MD, [facility] CPT-4: 04403 03/03/2016 ([id number]) 39875 EST. PATIENT, LEVEL III Diagnosis: Generalized anxiety disorder[ICD10: F41.1] Diagnosis: Other specified dermatitis[ICD10: L30.8] Rachael Newby MD, [facility] CPT-4: 48772 01/14/2016 47220 EST. PATIENT, LEVEL III Diagnosis: Encounter for follow-up examination after completed treatment for conditions other than malignant neoplasm[ICD10: Z09] Diagnosis: Family history of malignant neoplasm of digestive organs[ICD10: Z80.0 ] Diagnosis: Vitamin B12 deficiency anemia, unspecified[ICD10: D51.9] Brina Newby MD, [facility] CPT-4: 22774 12/03/2015 ([id number]) 75063 EST. PATIENT, LEVEL IV Diagnosis: Essential (primary) hypertension[ICD10: I10] Diagnosis: Anemia, unspecified[ICD10: D64.9] Diagnosis: Mixed hyperlipidemia[ICD10: E78.2] Diagnosis: Gastro-esophageal reflux disease without esophagitis[ICD10: K21.9] Rachael Newby MD, [facility] CPT-4: 81787 10/10/2015 ([id number]) 51454 EST. PATIENT, LEVEL IV Diagnosis: Essential (primary) hypertension[ICD10: I10] Diagnosis: Generalized anxiety disorder[ICD10: F41.1] Diagnosis: Pain in right shoulder[ICD10: M25.511] Rachael Newby MD [facility] CPT-4: 03687 08/28/2015 ([id number]) 66150 EST. PATIENT, LEVEL IV Diagnosis: Other constipation[ICD10: K59.09] Diagnosis: Chronic pain syndrome[ICD10: G89.4] Diagnosis: Essential (primary) hypertension[ICD10: I10] Diagnosis: Frequency of micturition[ICD10: R35.0] Rachael Newby MD, [facility] CPT-4: 57947 06/12/2015 ([id number]) 63597 EST. PATIENT, LEVEL IV Diagnosis: OTHER CONSTIPATION[ICD9: 564.09] Diagnosis: ESSENTIAL HYPERTENSION[ICD9: 401.9] Rachael Newby MD [facility] CPT-4: 28196 05/09/2015 ([id number]) 06282 EST. PATIENT, LEVEL IV Diagnosis: Abdominal pain[ICD9: 789.00] Diagnosis: Vitamin D deficiency[ICD9: 268.9] Diagnosis: Vitamin B 12 deficiency[ICD9: 266.2] Diagnosis: Peripheral neuropathy[ICD9: 356.9] Diagnosis: ESSENTIAL HYPERTENSION[ICD9: 401.9] Diagnosis: Anxiety, generalized[ICD9: 300.02] Rachael Newby MD, [facility] CPT-4: 19778 04/12/2015 [id number]) 08570 EST. PATIENT, LEVEL IV Diagnosis: Hemorrhoids[ICD9: 455.6] Diagnosis: Blood in stool[ICD9: 578.1] Diagnosis: Weight loss[ICD9: 783.21] Diagnosis: ESSENTIAL HYPERTENSION[ICD9: 401.9] Jillian Newby MD, [facility] CPT-4: 42728 03/12/2015 [id number]) 60117 EST. PATIENT, LEVEL IV Diagnosis: Heart murmur[ICD9: 785.2] Diagnosis: Aortic regurgitation[ICD9: 424.1] Diagnosis: ESSENTIAL HYPERTENSION[ICD9: 401.9] Diagnosis: CHRONIC PAIN SYNDROME[ICD9: 338.4] Diagnosis: Fatigue[ICD9: 780.79] Diagnosis: MYALGIA AND MYOSITIS[ICD9: 729.1] Diagnosis: Vitamin B 12 deficiency[ICD9: 266.2] Rachael Newby MD, [facility] CPT-4: 41337 01/08/2015 [id number]) 19591 EST. PATIENT, LEVEL III Diagnosis: ACUTE URI[ICD9: 465.9] Diagnosis: Vitamin B 12 deficiency[ICD9: 266.2] Rachael Newby MD, [facility] CPT-4: 19531 10/04/2014 [id number]) 26001 EST. PATIENT, LEVEL IV Diagnosis: ESSENTIAL HYPERTENSION[ICD9: 401.9] Diagnosis: Vitamin B 12 deficiency[ICD9: 266.2] Diagnosis: Esophageal reflux[ICD9: 530.81] Rachael Newby MD, [facility] CPT- 4: 62328 09/10/2014 [id number]) 14448 EST. PATIENT, LEVEL III Diagnosis: ESSENTIAL HYPERTENSION[ICD9: 401.9] Diagnosis: ACUTE URI[ICD9: 465.9] Rachael Newby MD, [facility] CPT-4: 52054 08/06/2014 ([id number]) 94460 EST. PATIENT, LEVEL III Diagnosis: Vitamin B 12 deficiency[ICD9: 266.2] Diagnosis: CHRONIC PAIN SYNDROME[ICD9: 338.4] Diagnosis: ESSENTIAL HYPERTENSION[ICD9: 401.9] Rachael Newby MD, [facility] CPT-4: 07051 07/12/2014 ([id number]) 29680 EST. PATIENT, LEVEL IV Diagnosis: Anxiety, generalized[ICD9: 300.02] Diagnosis: Insomnia[ICD9: 780.52] Diagnosis: VACCIN FOR INFLUENZA[ICD10: Z23] Diagnosis: Vitamin B 12 deficiency[ICD9: 266.2] Rachael Newby MD, [facility] CPT-4: 37622 05/16/2014 ([id number]) 69673 EST. PATIENT, LEVEL III Diagnosis: ESSENTIAL HYPERTENSION[ICD9: 401.9] Diagnosis: Vitamin B 12 deficiency[ICD9: 266.2] Diagnosis: Insomnia[ICD9: 780.52] Rachael Newby MD, [facility] CPT-4: 27571 04/05/2014 ([id number]) 84975 EST. PATIENT, LEVEL IV Diagnosis: ESSENTIAL HYPERTENSION[ICD9: 401.9] Diagnosis: DEPRESSIVE DISORDER NEC[ICD9: 311] Diagnosis: MYALGIA AND MYOSITIS[ICD9: 729.1] Rachael Newby MD, [facility] CPT-4: 69448 03/05/2014 ([id number]) 22119 EST. PATIENT, LEVEL III Diagnosis: Dyshidrotic eczema[ICD9: 705.81] Diagnosis: B-COMPLEX DEFIC NEC[ICD9: 266.2] Jillian Newby MD, [facility] CPT-4: 84672 02/01/2014 ([id number]) 39871 EST. PATIENT, LEVEL III Diagnosis: Rash[ICD9: 782.1] Diagnosis: ESSENTIAL HYPERTENSION[SNOMED: 55471087] Jillian Newby MD, [facility] CPT-4: 94233 12/07/2013 ([id number]) 86668 EST. PATIENT, LEVEL IV Diagnosis: ESSENTIAL HYPERTENSION[SNOMED: 13198353] Diagnosis: MYALGIA AND MYOSITIS[ICD9: 729.1] Diagnosis: DEPRESSIVE DISORDER NEC[ICD9: 311] Diagnosis: Dietary counseling[ICD9: V65.3] Rachael Newby MD [facility] CPT- 4: 57801 09/25/2013 ([id number]) 91127 EST. PATIENT, LEVEL IV Diagnosis: ESSENTIAL HYPERTENSION[SNOMED: 93589330] Diagnosis: DEPRESSIVE DISORDER NEC[ICD9: 311] Diagnosis: Fatigue[ICD9: 780.79] Rachael Newby MD [facility] CPT-4: 56114 09/04/2013 ([id number]) 21629 EST. PATIENT, LEVEL III Diagnosis: Back pain[ICD9: 724.5] Rachael Newby MD [facility] CPT-4: 42502 05/18/2013 ([id number]) 87777 EST. PATIENT, LEVEL III Diagnosis: ESSENTIAL HYPERTENSION[SNOMED: 31831698] Diagnosis: Sacroiliitis[ICD9: 720.2] Diagnosis: Sleep apnea[ICD9: 780.57] Rachael Newby MD, [facility] CPT-4: 68720 04/18/2013 ([id number]) 45240 EST. PATIENT, LEVEL IV Diagnosis: ESSENTIAL HYPERTENSION[SNOMED: 89682106] Diagnosis: Fatigue[ICD9: 780.79] Diagnosis: Snoring disorder[ICD9: 786.09] Rachael Newby MD [facility] CPT- 4: 58091 03/16/2013 ([id number]) 88165 EST. PATIENT, LEVEL III Diagnosis: CELLULITIS OF NECK[ICD9: 682.1] Diagnosis: CELLULITIS OF TRUNK[ICD9: 682.2] Rachael Newby MD, [facility] CPT-4: 87485 01/26/2013 ([id number]) 48811 EST. PATIENT, LEVEL III Diagnosis: ESSENTIAL HYPERTENSION[SNOMED: 41434741] Diagnosis: CELLULITIS, FINGER[ICD9: 681.00] Diagnosis: ENCNTR LONG-RX USE NEC[ICD9: V58.69] Diagnosis: Vitamin B 12 deficiency[ICD9: 266.2] Diagnosis: JOINT PAIN-HAND[ICD9: 719.44] Jillian Newby MD, [facility] CPT-4: 96041 12/27/2012 ([id number]) 53147 EST. PATIENT, LEVEL IV Diagnosis: ESSENTIAL HYPERTENSION[SNOMED: 04040029] Diagnosis: HYPERLIPIDEMIA[ICD9: 272.4] Diagnosis: MYALGIA AND MYOSITIS[ICD9: 729.1] Rachael Newby MD [facility] CPT-4: 95725 10/11/2012 ([id number]) 42045 EST. PATIENT, LEVEL IV Diagnosis: ESSENTIAL HYPERTENSION[SNOMED: 98282392] Diagnosis: Anxiety, generalized[ICD9: 300.02] Diagnosis: Fatigue[ICD9: 780.79] Diagnosis: Depression[ICD9: 311] Rachael Newby MD [facility] CPT-4: 96439 09/21/2012 ([id number]) 05998 EST. PATIENT, LEVEL III Diagnosis: Dental abscess[ICD9: 522.5] Diagnosis: ACUTE MAXILLARY SINUSITIS[ICD9: 461.0] Rachael Newby MD [facility] CPT-4: 61176 08/02/2012 ([id number]) 60322 EST. PATIENT, LEVEL III Diagnosis: SACROILIITIS NEC[ICD9: 720.2] Diagnosis: CHRONIC PAIN SYNDROME[ICD9: 338.4] Rachael Newby MD [facility] CPT-4: 82475 06/27/2012 ([id number]) 69732 EST. PATIENT, LEVEL IV Diagnosis: ESSENTIAL HYPERTENSION[SNOMED: 78977525] Diagnosis: Tennis elbow[ICD9: 726.32] Diagnosis: Neck pain on right side[ICD9: 723.1] Rachael Newby MD [facility] CPT-4: 76166 06/06/2012 ([id number]) 32905 EST. PATIENT, LEVEL IV Diagnosis: Esophageal reflux[ICD9: 530.81] Diagnosis: Cervicalgia[ICD9: 723.1] Diagnosis: Medial epicondylitis[ICD9: 726.31] Jillian Newby MD, [facility] CPT-4: 78569 05/16/2012 ([id number]) 77826 EST. PATIENT, LEVEL IV Diagnosis: EDEMA[ICD9: 782.3] Diagnosis: Chronic pain disorder[ICD9: 338.4] Diagnosis: DEPRESSIVE DISORDER NEC[ICD9: 311] Diagnosis: MALAISE AND FATIGUE[ICD9: 780.79] Rachael Nweby MD, [facility] CPT-4: 78763 02/29/2012 ([id number]) 35134 EST. PATIENT, LEVEL IV Diagnosis: ANEMIA[ICD9: 285.9] Diagnosis: Fatigue[ICD9: 780.79] Rachael Newby MD, [facility] CPT-4: 15288 02/08/2012 ([id number]) 63934 EST. PATIENT, LEVEL IV Diagnosis: Acute renal failure[ICD9: 584.9] Diagnosis: Fatigue[ICD9: 780.79] Diagnosis: Myalgia[ICD9: 729.1] Rachael Newby MD, [facility] CPT-4: 05447 02/01/2012 ([id number]) 01021 EST. PATIENT, LEVEL III Diagnosis: Oral aphthae[ICD9: 528.2] Diagnosis: Fatigue[ICD9: 780.79] Diagnosis: History of iron deficiency anemia[ICD9: V12.3] Diagnosis: HYPERLIPIDEMIA[ICD9: 272.4] Diagnosis: ESSENTIAL HYPERTENSION[SNOMED: 68963566] Jillian Newby MD, [facility] CPT-4: 28509 01/22/2012 ([id number]) 23674 EST. PATIENT, LEVEL III Diagnosis: ACUTE SINUSITIS[ICD9: 461.9] Jillian Newby MD, [facility] CPT-4: 05019 10/19/2011 ([id number]) 77743 EST. PATIENT, LEVEL III Diagnosis: ACUTE SINUSITIS[ICD9: 461.9] Diagnosis: JOINT PAIN-L/LEG[ICD9: 719.46] Rachael Newby MD, [facility] CPT- 4: 82790 08/13/2011 25098 EST. PATIENT, LEVEL III Diagnosis: JOINT PAIN-L/LEG[ICD9: 719.46] Diagnosis: Primary localized osteoarthrosis of the knee[ICD9: 715.16] Rachael Newby MD , [facility] CPT-4: 57413 07/02/2011 36049 EST. PATIENT, LEVEL III Diagnosis: Knee pain, left[ICD9: 719.46] Diagnosis: Fall from slipping[ICD9: E885.9] [facility] CPT-4: 29903 06/24/2011 39216 EST. PATIENT, LEVEL III Diagnosis: Aphthous ulcer[ICD9: 528.2] [facility] CPT- 4: 97661 04/16/2011 Plan of Care Planned Activity Notes Codes Status Date Appointment: Nurse Visit 09/28/2017 Patient Education: Patient Medication Summary Completed 09/28/2017 Appointment: Nurse Visit 09/09/2017 Patient Education: Patient Medication Summary Completed 09/09/2017 Appointment: [phone] [facility] [place] (15 min) Moderate 09/03/2017 Patient Education: Patient Medication Summary Completed 09/03/2017 Appointment: [facility] [phone] [facility] [place] (15 min) Moderate 08/26/2017 Appointment: [facility] [phone] [facility] [place] (15 min) Moderate 07/14/2017 Appointment: [facility] [phone] [facility] [place] (15 min) Moderate 05/27/2017 Patient Education: Patient Medication Summary Completed 05/27/2017 Appointment: Injection 04/27/2017 Appointment: [facility] [phone] [facility] [place] (15 min) Moderate 04/27/2017 Patient Education: Patient Medication Summary Completed 04/27/2017 Appointment: Injection 04/09/2017 Patient Education: Patient Medication Summary Completed 04/09/2017 Appointment: Injection 03/23/2017 Patient Education: Patient Medication Summary Completed 03/23/2017 Appointment: Injection 03/11/2017 Patient Education: Patient Medication Summary Completed 03/11/2017 Patient Education: Patient Medication Summary Completed 03/09/2017 Appointment: Rachael Newby WPtel: [phone] [facility] [place] (15 min) Moderate 02/25/2017 Appointment: Rachael Newby WPtel: [facility] (15 min) Moderate 02/22/2017 Patient Education: Patient Medication Summary Completed 02/22/2017 Appointment: Brina Cazares WPtel: [facility] [facility] - Annual Wellness Visit 12/28/2016 Patient Education: Patient Medication Summary Completed 12/28/2016 Appointment: Rachael Newby WPtel: [facility] (15 min) Moderate 12/24/2016 Patient Education: Patient Medication Summary Completed 12/24/2016 Appointment: Brina Cazares WPtel: [facility]5 [facility] [facility] - Annual Wellness Visit 11/26/2016 Appointment: Injection 10/14/2016 Patient Education: Patient Medication Summary Completed 10/14/2016 Appointment: Jillian Dalal WPtel: [facility] [place] (30 min) Complex 10/06/2016 Patient Education: Patient Medication Summary Completed 10/06/2016 Appointment: Rachael Newby WPtel: [facility] [place] (15 min) Moderate 10/01/2016 Patient Education: Patient Medication Summary Completed 10/01/2016 Appointment: Injection 09/16/2016 Patient Education: Patient Medication Summary Completed 09/16/2016 Referral: Yandel Hernandez Patient informed. Referral info faxed. Completed 07/2017 Appointment: Rachael Newby WPtel: [facility] [place] (15 min) Moderate 09/01/2016 Patient Education: Patient Medication Summary Completed 09/01/2016 Care Plan: Referral Order SNOMED-CT : [id number] Pending 09/01/2016 Appointment: Jillian Dalal WPtel: [phone] [place] (15 min) Moderate 08/11/2016 Patient Education: Patient Medication Summary Completed 08/11/2016 Care Plan: Referral Order SNOMED-CT : 402087684 Pending 08/11/2016 Appointment: Rachael Newby WPtel: [phone] [facility] [place] (15 min) Moderate 07/01/2016 Patient Education: Patient Medication Summary Completed 07/01/2016 Appointment: Lab Draw 05/27/2016 Patient Education: Patient Medication Summary Completed 05/27/2016 Appointment: [facility] [phone] [facility] [place] (15 min) Moderate 04/23/2016 Patient Education: Patient Medication Summary Completed 04/23/2016 Appointment: Nurse Visit 03/13/2016 Patient Education: Patient Medication Summary Completed 03/13/2016 Patient Education: Patient Medication Summary Completed 03/03/2016 Appointment: Rachael Newby WPtel: [phone] [facility] [place] (15 min) Moderate 02/17/2016 Patient Education: Patient Medication Summary Completed 01/14/2016 Appointment: [facility] [phone] [facility] [place] (15 min) Moderate 01/13/2016 Appointment: [facility] Dalal [facility] [phone] [facility] [place] (15 min) Moderate 12/03/2015 Patient Education: Patient Medication Summary Completed 12/03/2015 Care Plan: Comp Metabolic Cancelled 12/03/2015 Care Plan: Magnesium Cancelled 12/03/2015 Appointment: [facility]Ptel[facility] [phone] [facility] [place] (15 min) Moderate 10/10/2015 Patient Education: Patient Medication Summary Completed 10/10/2015 Patient Education: Hypertension Completed 10/10/2015 Patient Education: Patient Medication Summary Completed 08/28/2015 Patient Education: Hypertension Completed 08/28/2015 Appointment: Rachael Newby WPtel: [phone] [facility] [place] (15 min) Moderate 08/07/2015 Appointment: Rachael Newby WPtel: [facility] (15 min) Moderate 06/12/2015 Patient Education: Patient Medication Summary Completed 06/12/2015 Patient Education: Hypertension Completed 06/12/2015 Appointment: Rachael Newby WPtel: [address] [place], [place] [address] (15 min) Moderate 05/09/2015 Patient Education: Patient Medication Summary Completed 05/09/2015 Patient Education: Hypertension Completed 05/09/2015 Appointment: (15 min) Moderate 04/12/2015 Patient Education: Patient Medication Summary Completed 04/12/2015 Patient Education: Hypertension Completed 04/12/2015 Care Plan: CT ABD & PELV 1/> REGNS LOINC : 34161-8 Ordered 04/12/2015 Appointment: (15 min) Moderate 03/12/2015 Patient Education: Patient Medication Summary Completed 03/12/2015 Patient Education: Hypertension Completed 03/12/2015 Appointment: Injection 01/22/2015 Patient Education: Patient Medication Summary Completed 01/22/2015 Appointment: Rachael Newby WPtel: [address] [place], [place] [address] Follow up 01/08/2015 Patient Education: Patient Medication Summary Completed 01/08/2015 Patient Education: Hypertension Completed 01/08/2015 Care Plan: Referral Order SNOMED-CT : [id number] Ordered 01/08/2015 Appointment: Injection 11/28/2014 Patient Education: Patient Medication Summary Completed 11/28/2014 Patient Education: Patient Medication Summary Completed 10/15/2014 Care Plan: SCREENINGMAMMOGRAPHYDIGITAL LOINC : 04869-9 Ordered 10/15/2014 Appointment: Rachael Newby WPtel: [address] [place], [place] [phone] Sick 10/04/2014 Patient Education: Patient Medication Summary Completed 10/04/2014 Appointment: Rachael Newby WPtel: [facility] Follow up 09/10/2014 Patient Education: Patient Medication Summary Completed 09/10/2014 Patient Education: Hypertension Completed 09/10/2014 Appointment: [facility] New[facility] WPtel: [phone] [facility] [place] called and confirmed appt Follow up 08/06/2014 Patient Education: Patient Medication Summary Completed 08/06/2014 Patient Education: Hypertension Completed 08/06/2014 Appointment: Sick 07/12/2014 Patient Education: Patient Medication Summary Completed 07/12/2014 Patient Education: Hypertension Completed 07/12/2014 Patient Education: Patient Medication Summary Completed 06/28/2014 Appointment: [facility]Ptel: [phone] [facility] [place] Injection 06/14/2014 Patient Education: Patient Medication Summary Completed 06/14/2014 Appointment: Rachael Nebwy WPtel: [phone] [facility] [place] Injection 05/31/2014 Patient Education: Patient Medication Summary Completed 05/31/2014 Appointment: [facility] New[facility] WPtel: [phone] [facility] [place] Injection 05/23/2014 Appointment: Rachael Newby [facility]el: [phone] [facility] [place] Follow up 05/16/2014 Patient Education: Patient Medication Summary Completed 05/16/2014 Patient Education: Patient Medication Summary Completed 04/05/2014 Patient Education: Hypertension Completed 04/05/2014 Appointment: Rachael Newyb WPtel: [facility] [place] Follow up 03/05/2014 Patient Education: Patient Medication Summary Completed 03/05/2014 Patient Education: Hypertension Completed 03/05/2014 Appointment: [phone] [place] Follow up 02/01/2014 Patient Education: Patient Medication Summary Completed 02/01/2014 Appointment: Jill[facility] Dalal [facility]el: [phone] [place] Injection 12/29/2013 Patient Education: Patient Medication Summary Completed 12/29/2013 Appointment: Rachael Newby [facility]Ptel: [phone] [facility] [place] Injection 12/27/2013 Appointment: Jillian Dalal WPtel: [phone] [phone] [place] rash 12/07/2013 Patient Education: Patient Medication Summary Completed 12/07/2013 Patient Education: Hypertension Completed 12/07/2013 Appointment: Rachael Newby WPtel: [facility]5 [facility] [place] Follow up 09/25/2013 Patient Education: Patient Medication Summary Completed 09/25/2013 Patient Education: .Amazing charts Diabetic meal planning guide Completed 09/25 Patient Education: Hypertension Completed 09/25/2013 Appointment: Rachael Newby WPtel: [address] [place], [place] [phone] Lab Draw 09/05/2013 Appointment: Rachael Newby WPtel: [address] [place], [place] [phone] [place] Follow up 09/04/2013 Patient Education: Patient Medication Summary Completed 09/04/2013 Patient Education: Hypertension Completed 09/04/2013 Appointment: Rachael Newby WPtel: [facility]5 [facility] [place] Follow up 08/29/2013 Appointment: Rachael Newby WPtel: [address] [place], [place] [address] [place] Follow up 05/18/2013 Patient Education: Patient Medication Summary Completed 05/18/2013 Appointment: Jillian Dalal WPtel: [phone] [place] Follow up 04/18/2013 Patient Education: Patient Medication Summary Completed 04/18/2013 Patient Education: Hypertension Completed 04/18/2013 Appointment: Rachael Newby WPtel: [address] [place], [place] [phone] [place] Follow up 04/13/2013 Appointment: Rach[facility] Newby [facility]Ptel: [phone] [facility] Follow [facility] 03/16/2013 Patient Education: Patient Medication Summary Completed 03/16/2013 Patient Education: Hypertension Completed 03/16/2013 Appointment: Rachael Newby WPtel: [facility]5 [facility] Follow up 02/28/2013 Appointment: Rachael Newby WPtel: [address] [place], [place] [phone] Other 01/26/2013 Patient Education: Patient Medication Summary Completed 01/26/2013 Patient Education: Patient Medication Summary Completed 01/23/2013 Patient Education: Hypertension Completed 01/23/2013 Appointment: Jillian Dalal WPtel: [facility]5 [phone] rash 12/27/2012 Patient Education: Patient Medication Summary Completed 12/27/2012 Patient Education: Hypertension Completed 12/27/2012 Appointment: Rachael Newby WPtel: [address] [place], [place] [phone] Follow up 10/11/2012 Patient Education: Patient Medication Summary Completed 10/11/2012 Patient Education: Hypertension Completed 10/11/2012 Appointment: Jillian Dalal WPtel: [address] [place], [place] [phone] Lab Draw 10/07/2012 Patient Education: Patient Medication Summary Completed 10/07/2012 Patient Education: Hypertension Completed 10/07/2012 Appointment: Rachael Newby WPtel: [address] [place], [place] [address] Lab Draw 09/26/2012 Appointment: Rachael Newby WPtel: [address] [place], [place] [address] Follow up 09/21/2012 Patient Education: Patient Medication Summary Completed 09/21/2012 Patient Education: Hypertension Completed 09/21/2012 Appointment: Rachael Newby WPtel: [address] [place], [place] [phone] Sick 08/02/2012 Patient Education: Patient Medication Summary Completed 08/02/2012 Appointment: Rachael Newby WPtel: [facility]5 [facility] Follow up 06/27/2012 Patient Education: Patient Medication Summary Completed 06/27/2012 Appointment: Rachael Newby WPtel: [facility] Follow [facility] 06/06/2012 Patient Education: Patient Medication Summary Completed 06/06/2012 Patient Education: High Blood Pressure: Essential Hypertension Completed 2011 Appointment: Jillian Dalal WPtel: [phone] Other 05/16/2012 Patient Education: Patient Medication Summary Completed 05/16/2012 Appointment: Rachael Newby WPtel: [facility]5 [facility] Follow up 02/29/2012 Patient Education: Patient Medication Summary Completed 02/29/2012 Appointment: Rachael Newby WPtel: [address] [place], [place] [phone] Follow up 02/08/2012 Patient Education: Patient Medication Summary Completed 02/08/2012 Appointment: Rachael Newby WPtel: [address] [place] [phone] Other 02/01/2012 Patient Education: Patient Medication Summary Completed 02/01/2012 Appointment: Jillian Dalal WPtel: [address] [place], [place] [phone] Other 01/22/2012 Patient Education: Patient Medication Summary Completed 01/22/2012 Patient Education: High Blood Pressure: Essential Hypertension Completed 2011 Patient Education: Patient Medication Summary Completed 10/19/2011 Appointment: Rachael Newby WPtel: [address] [place], [place] [phone] [facility] 09/09/2011 Patient Education: Patient Medication Summary Completed 09/09/2011 Appointment: Rachael Newby WPtel: [address] [place] [phone] [place] Pap Only 09/03/2011 Patient Education: Patient Medication Summary Completed 08/13/2011 Patient Education: Patient Medication Summary Completed 07/15/2011 Appointment: Rachael Newby WPtel: [facility]5 [facility] Other 07/02/2011 Patient Education: Patient Medication Summary Completed 07/02/2011 Appointment: Jillian Dalal WPtel: [facility]5 [phone] Other 06/24/2011 Patient Education: Patient Medication Summary Completed 06/24/2011 Appointment: Rachael Newby WPtel: [facility]5 [facility] Other 04/16/2011 Patient Education: Patient Medication Summary Completed 04/16/2011 Referral: Yandel Hernandez Referral Appointment Requested Referral: Dago Tenorio WPtel: [phone] [facility] Referral Completed Instructions No Instructions
--- OUTSIDE RECORDS SUMMARY | 2018-07-05 07:38 | XMS REPORT | CCD ---
Author Author Rachael Newby Organization [facility] Address [address] [place] [address] Phone Care Team Providers Care Environmental Conservation Officer Name Role Phone Rachael Newby PP Unavailable CCM Unavailable Summary Purpose Interface Exchange Insurance Providers Payer name Policy type / Coverage type Covered constitution party ID Effective Begin Date Effective End Date WPS Medicare Part B Medicare Part B [id number] 2013 Unknown [facility] Medicare Part B [id number] 2013 Unknown Family history Runs in the [...] of children Unknown 4 1 daughter in [place], 3 sons live in [facility] Employment Unknown 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 [employer] 04/16/[address]: 8934079 Former smoker Quit in 1986 - previously smoked 1 pack per week x 25 years 04/16/[address]: 894352 Currently drinks alcohol 1 glass of wine [...] Instructions isosorbide mononitrate 10 mg tablet RxNorm: 964846 1 Tablet(s) PO BID 09/10/2017 04/07/2018 Active pantoprazole 40 mg tablet,delayed release RxNorm: 877733 1 Tablet(s) PO BID x 1 wk then daily thereafter 09/03/2017 No Stop Date Active isosorbide mononitrate 10 mg tablet RxNorm: 848258 1 Tablet(s) PO daily 09/03/2017 09/09/2017 Inactive hydrocodone 10 mg-acetaminophen 325 mg tablet RxNorm: 651822 1 Tablet(s) PO Q4-6H as needed pain 07/09/2017 08/01/2017 Inactive alprazolam 1 mg tablet RxNorm: 994305 1 Tablet(s) PO Q8 PRN as needed TAKE 1 TABLET THREE TIMES DAILY NEEDED FOR ANXIETY. 07/01/2017 08/29/2017 Inactive omeprazole 20 mg tablet,delayed release RxNorm: 208795 1 Tablet(s) PO BID 07/01/2017 08/29/2017 Inactive omeprazole 20 mg tablet,delayed release RxNorm: 038983 1 Tablet(s) PO BID Tablet(s ) 1 Tablet(s) PO BID 06/30/20172016 Inactive hydrocodone 10 mg-acetaminophen 325 mg tablet RxNorm: 817117 1 Tablet(s) PO Q4-6H as needed pain 06/24/2017 07/08/2017 Inactive bupropion HCl XL 300 mg 24 hr tablet, extended release RxNorm: 356690 1 Tablet(s) PO daily 05/27/2017 08/19/2018 Active alprazolam 1 mg tablet RxNorm: 590608 1 Tablet(s) PO Q8 PRN as needed TAKE 1 TABLET THREE TIMES DAILY NEEDED FOR ANXIETY. 05/27/2017 06/30/2017 Inactive hydrocodone 10 mg-acetaminophen 325 mg tablet RxNorm: 413482 1 Tablet(s) PO Q4-6H as needed pain 05/27/2017 06/19/2017 Inactive cyanocobalamin (vit B-12) 1,000 mcg/mL injection solution RxNorm: 716625 1 Milliliter(s) Inj 05/27/2017 05/27/2017 Inactive cyanocobalamin (vit B-12) 1,000 mcg/mL injection solution RxNorm: 739337 1 Milliliter(s) Inj 04/27/2017 04/27/2017 Inactive hydrocodone 10 mg-acetaminophen 325 mg tablet RxNorm: 706027 1 Tablet(s) PO Q4-6H as needed pain 04/27/2017 05/26/2017 Inactive Cymbalta 60 mg capsule,delayed release RxNorm: 697338 1 Capsule(s) PO daily 04/27/2017 04/27/2017 Inactive cyanocobalamin (vit B-12) 1,000 mcg/mL injection solution RxNorm: 171165 1 Milliliter(s) Inj 04/09/2017 04/09/2017 Inactive cyanocobalamin (vit B-12) 1,000 mcg/mL injection solution RxNorm: 499353 Milliliter(s) Inj 03/23/2017 03/23/2017 Inactive alprazolam 1 mg tablet RxNorm: 594728 1 Tablet(s) PO Q8 PRN as needed TAKE 1 TABLET THREE TIMES DAILY NEEDED FOR ANXIETY. 03/17/2017 05/15/2017 Inactive cyanocobalamin (vit B-12) 1,000 mcg/mL injection solution RxNorm: 071894 Milliliter(s) Inj 03/11/2017 03/11/2017 Inactive metoprolol tartrate 50 mg tablet RxNorm: 792263 1 Tablet(s) PO BID 03/09/2017 03/03/2018 Active this replaces the 25mg RX for metoprolol tartate Metanx (algal oil) 3 mg-35 mg-2 mg-90.314 mg capsule RxNorm: 1 Capsule(s) PO BID 03/09/2017 05/17/2017 Inactive gabapentin 100 mg capsule RxNorm: 118822 2 Capsule(s) PO TID 05/31/2017 Inactive Zofran 4 mg tablet RxNorm: 015573 1 Tablet(s) PO TID as needed 02/26/2017 No Stop Date Active Kenalog 40 mg/mL suspension for injection RxNorm: 3892549 1 Milliliter(s) Inj 02/22/2017 02/22/2017 Inactive metoprolol tartrate 25 mg tablet RxNorm: 558740 1 Tablet(s) PO BID 02/22/2017 03/08/2017 Inactive 07/23/2016 10:27:52 AM trimethoprim 100 mg tablet RxNorm: 280529 1 Tablet(s) PO daily 01/02/2017 12/24/2016 Inactive Lipitor 40 mg tablet RxNorm: 206967 TAKE ONE TABLET BY MOUTH AT BEDTIME 12/25/2016 12/19/2017 Active Generic For:LIPITOR 40MG TAB refill request trimethoprim 100 mg tablet RxNorm: 753105 1 Tablet(s) PO daily 12/25/2016 06/22/2017 Inactive bupropion HCl XL 300 mg 24 hr tablet, extended release RxNorm: 842340 1 Tablet(s) PO daily 12/25/2016 04/26/2017 Inactive Bactrim DS 800 mg-160 mg tablet RxNorm: 249361 1 Tablet(s) PO BID 12/24/2016 01/02/2017 Inactive hydrocodone 10 mg-acetaminophen 325 mg tablet RxNorm: 070175 1 Tablet(s) PO Q4-6H as needed pain 12/24/2016 01/22/2017 Inactive bupropion HCl XL 300 mg 24 hr tablet, extended release RxNorm: 401323 1 Tablet(s) PO daily 12/24/2016 12/24/2016 Inactive omeprazole 20 mg tablet,delayed release RxNorm: 453835 Tablet(s) 1 Tablet(s) PO BID 11/27/2016 05/25/2017 Inactive hydrocodone 10 mg-acetaminophen 325 mg tablet RxNorm: 523344 1 Tablet(s) PO Q4-6H as needed pain 11/18/2016 12/11/2016 Inactive alprazolam 1 mg tablet RxNorm: 821696 1 Tablet(s) PO Q8 PRN as needed TAKE 1 TABLET THREE TIMES DAILY NEEDED FOR ANXIETY. 11/18/2016 02/15/2017 Inactive hydrocodone 10 mg-acetaminophen 325 mg tablet RxNorm: 034177 1 Tablet(s) PO Q4-6H as needed pain 10/19/2016 11/11/2016 Inactive cyanocobalamin (vit B-12) 1,000 mcg/mL injection solution RxNorm: 281369 1 Milliliter(s) Inj 10/14/2016 10/14/2016 Inactive prednisone 20 mg tablet RxNorm: 396042 3 Tablet(s) PO daily 10/08/2016 Inactive Metanx (algal oil) 3 mg-35 mg-2 mg-90.314 mg capsule RxNorm: 1 Capsule(s) PO BID 10/01/2016 01/28/2017 Inactive isosorbide mononitrate ER 30 mg tablet,extended release 24 hr RxNorm: 754715 1 Tablet(s) PO daily TAKE 1 TABLET BY MOUTH ONCE DAILY. 201612/23/2016 Inactive hydrocodone 10 mg-acetaminophen 325 mg tablet RxNorm: 804637 1 Tablet(s) PO Q4-6H as needed pain 09/24/2016 10/17/2016 Inactive cyanocobalamin (vit B-12) 1,000 mcg/mL injection solution RxNorm: 638548 Milliliter(s) Inj 09/16/2016 09/16/2016 Inactive alprazolam 1 mg tablet RxNorm: 602259 1 Tablet(s) PO Q8 PRN as needed TAKE 1 TABLET THREE TIMES DAILY NEEDED FOR ANXIETY. 09/01/2016 11/28/2016 Inactive hydrocodone 10 mg-acetaminophen 325 mg tablet RxNorm: 558298 1 Tablet(s) PO Q4-6H as needed pain 09/01/2016 09/23/2016 Inactive Vitamin D2 50,000 unit capsule RxNorm: 072235 1 Capsule(s) PO QW 08/14/2016 05/26/2017 Inactive Vitamin D2 50,000 unit capsule RxNorm: 694801 1 Capsule(s) PO QW 08/14/2016 08/13/2016 Inactive cyanocobalamin (vit B-12) 1,000 mcg/mL injection solution RxNorm: 381712 1 Milliliter(s) Inj 08/11/2016 08/11/2016 Inactive hydrocodone 10 mg-acetaminophen 325 mg tablet RxNorm: 613804 1 Tablet(s) PO Q4-6H as needed pain 08/07/2016 08/30/2016 Inactive metoprolol tartrate 25 mg tablet RxNorm: 302872 TAKE 1 TABLET BY MOUTH TWICE DAILY 07/23/2016 12/23/2016 Inactive 07/23/2016 10:27:52 AM gabapentin 100 mg capsule RxNorm: 560831 Capsule(s) PO TID TAKE (1) CAPSULE BY MOUTH THREE TIMES DAILY. 07/14/20162016 Inactive hydrocodone 10 mg-acetaminophen 325 mg tablet RxNorm: 959512 1 Tablet(s) PO Q4-6H as needed pain 07/09/2016 08/01/2016 Inactive fluorouracil 5 % topical cream RxNorm: 316072 1 Application TOP BID 07/01/2016 06/30/2016 Inactive fluorouracil 5 % topical cream RxNorm: 850767 1 Application TOP BID 07/01/2016 07/10/2016 Inactive alprazolam 1 mg tablet RxNorm: 317285 1 Tablet(s) PO Q8 PRN as needed TAKE 1 TABLET THREE TIMES DAILY NEEDED FOR ANXIETY. 06/22/2016 08/31/2016 Inactive ( Appended: Controlled substance eRx refill - RxReferenceNumber: [id number]) hydrocodone 10 mg-acetaminophen 325 mg tablet RxNorm: 365412 1 Tablet(s) PO Q4-6H as needed pain 06/16/2016 06/30/2016 Inactive doxycycline hyclate 100 mg capsule RxNorm: 0516378 1 Capsule(s) PO BID 05/27/2016 06/02/2016 Inactive hydrocodone 10 mg-acetaminophen 325 mg tablet RxNorm: 388175 1 Tablet(s) PO Q4-6H as needed pain 05/12/2016 06/04/2016 Inactive [SAVINGS FOR NON-COVERED DRUGS -- BIN :943876, PCN: ASPROD1, Group: XXXXX, ID# [id number], Questions: . THIS IS NOT INSURANCE.] alprazolam 1 mg tablet RxNorm: 751164 1 Tablet(s) PO Q8 PRN as needed TAKE 1 TABLET THREE TIMES DAILY NEEDED FOR ANXIETY. 05/01/2016 11/17/2016 Inactive ( Appended: Controlled substance eRx refill - RxReferenceNumber: [id number]) Flonase 50 mcg/actuation nasal spray,suspension RxNorm: 5110889 1 [place] NASAL BID 1 [place] NASAL BID 04/23/2016 04/17/2017 Inactive Flonase 50 mcg/actuation nasal spray,suspension RxNorm: 7809965 [place] 1 [place] NASAL BID 04/23/2016 04/22/2016 Inactive iron-vitamin C 100 mg-250 mg tablet RxNorm: 411034 1 Tablet(s) PO daily 04/23/2016 08/31/2016 Inactive hydrocodone 10 mg-acetaminophen 325 mg tablet RxNorm: 180709 1 Tablet(s) PO Q4-6H as needed pain 04/14/2016 05/07/2016 Inactive [SAVINGS FOR NON-COVERED DRUGS -- BIN :261835, PCN: ASPROD1, Group: XXXXX, ID# [id number], Questions: . THIS IS NOT INSURANCE.] omeprazole 20 mg tablet,delayed release RxNorm: 425858 Tablet(s) 1 Tablet(s) PO BID 03/16/2016 09/11/2016 Inactive doxycycline hyclate 100 mg tablet RxNorm: 457312 1 Tablet(s) PO BID 03/16/2016 03/15/2016 Inactive doxycycline hyclate 100 mg tablet RxNorm: 916856 1 Tablet(s) PO BID 03/16/2016 03/22/2016 Inactive isosorbide mononitrate ER 30 mg tablet,extended release 24 hr RxNorm: 443768 1 Tablet(s) PO daily TAKE 1 TABLET BY MOUTH ONCE DAILY. 201509/11/2016 Inactive Diflucan 150 mg tablet RxNorm: 931002 1 Tablet(s) PO daily 03/03/2016 Inactive Diflucan 150 mg tablet RxNorm: 675896 1 Tablet(s) PO daily 03/08/2016 Inactive lisinopril 10 mg tablet RxNorm: 649378 Tablet(s) 1 tab(s) po daily 02/11/2016 12/23/2016 Inactive bupropion HCl XL 300 mg 24 hr tablet, extended release RxNorm: 980687 1 Tablet(s) PO daily 02/05/2016 12/23/2016 Inactive hydrocodone 10 mg-acetaminophen 325 mg tablet RxNorm: 736118 1 Tablet(s) PO Q4-6H as needed pain 01/31/2016 02/23/2016 Inactive [SAVINGS FOR NON-COVERED DRUGS -- BIN :512996, PCN: ASPROD1, Group: XXXXX, ID# [id number], Questions: . THIS IS NOT INSURANCE.] alprazolam 1 mg tablet RxNorm: 580804 1 Tablet(s) PO Q8 PRN as needed TAKE 1 TABLET THREE TIMES DAILY NEEDED FOR ANXIETY. 01/21/2016 06/21/2016 Inactive ( Appended: Controlled substance eRx refill - RxReferenceNumber: [id number]) buspirone 5 mg tablet RxNorm: 293285 1 Tablet(s) PO BID 201501/20/2016 Inactive betamethasone valerate 0.1 % topical ointment RxNorm: 335240 1 TOP TID on rash of hand and leg 01/14/2016 02/12/2016 Inactive hydrocodone 10 mg-acetaminophen 325 mg tablet RxNorm: 404060 1 Tablet(s) PO Q4-6H as needed pain 12/31/2015 01/23/2016 Inactive [SAVINGS FOR NON-COVERED DRUGS -- BIN :954597, PCN: ASPROD1, Group: XXXXX, ID# [id number], Questions: . THIS IS NOT INSURANCE.] cyanocobalamin (vit B-12) 1,000 mcg/mL injection solution RxNorm: 730596 Milliliter(s) Inj 12/03/2015 12/03/2015 Inactive hydrocodone 10 mg-acetaminophen 325 mg tablet RxNorm: 216835 1 Tablet(s) PO Q4-6H as needed pain 11/20/2015 12/13/2015 Inactive [SAVINGS FOR NON-COVERED DRUGS -- BIN :097919, PCN: ASPROD1, Group: XXXXX, ID# [id number], Questions: . THIS IS NOT INSURANCE.] Lipitor 40 mg tablet RxNorm: 019934 1 Tablet(s) PO QHS TAKE 1 TABLET BY MOUTH ONCE DAILY. 10/29/2015 10/22/2016 Inactive pt to take 2 tabs of lipitor 20mg. She will call when ready to fill 40mg. hydrocodone 10 mg-acetaminophen 325 mg tablet RxNorm: 590887 1 Tablet(s) PO Q4-6H as needed pain 10/04/2015 11/19/2015 Inactive [SAVINGS FOR NON-COVERED DRUGS -- BIN :031264, PCN: ASPROD1, Group: XXXXX, ID# [id number], Questions: . THIS IS NOT INSURANCE.] alprazolam 1 mg tablet RxNorm: 394272 1 Tablet(s) PO Q8 PRN as needed TAKE 1 TABLET THREE TIMES DAILY NEEDED FOR ANXIETY. 09/25/2015 01/20/2016 Inactive ( Appended: Controlled substance eRx refill - RxReferenceNumber: [id number]) isosorbide mononitrate ER 30 mg tablet,extended release 24 hr RxNorm: 212999 1 Tablet(s) PO daily TAKE 1 TABLET BY MOUTH ONCE DAILY. 201503/15/2016 Inactive hydrocodone 10 mg-acetaminophen 325 mg tablet RxNorm: 503358 1 Tablet(s) PO Q4-6H as needed pain 07/02/2015 08/18/2015 Inactive [SAVINGS FOR NON-COVERED DRUGS -- BIN :889509, PCN: ASPROD1, Group: XXXXX, ID# [id number], Questions: . THIS IS NOT INSURANCE.] omeprazole 20 mg tablet,delayed release RxNorm: 629331 1 Tablet(s) PO BID 06/25/2015 01/20/2016 Inactive [SAVINGS FOR UNINSURED PATIENTS -- BIN:676450, PCN: ASPROD1, Group: AME08, ID# [id number], Process claim through [employer], for questions: . THIS IS NOT INSURANCE.] gabapentin 100 mg capsule RxNorm: 295482 TAKE 1 CAPSULE BY MOUTH 3 TIMES DAILY * SCHEDULED PREVENTION MEDICINE* 06/25/2015 06/18/2016 Inactive Generic For:NEURONTIN 100MG 06/25/2015 9:18:27 AM N O T I C E Last quantity doesn't match original quantity hydrocodone 10 mg-acetaminophen 325 mg tablet RxNorm: 329310 1 Tablet(s) PO Q4-6H as needed pain 06/07/2015 06/30/2015 Inactive [SAVINGS FOR NON-COVERED DRUGS -- BIN :033568, PCN: ASPROD1, Group: XXXXX, ID# [id number], Questions: . THIS IS NOT INSURANCE.] Amitiza 8 mcg capsule RxNorm: 724756 1 Capsule(s) PO daily 05/0904/22/2016 Inactive cyanocobalamin (vit B-12) 1,000 mcg/mL injection solution RxNorm: 394056 Milliliter(s) Inj 04/12/2015 04/12/2015 Inactive alprazolam 1 mg tablet RxNorm: 754820 1 Tablet(s) PO Q8 PRN as needed TAKE 1 TABLET THREE TIMES DAILY NEEDED FOR ANXIETY. 04/12/2015 09/24/2015 Inactive ( Appended: Controlled substance eRx refill - RxReferenceNumber: [id number]) hydrocodone 10 mg-acetaminophen 325 mg tablet RxNorm: 041946 1 Tablet(s) PO Q4-6H as needed pain 04/09/2015 05/01/2015 Inactive [SAVINGS FOR NON-COVERED DRUGS -- BIN :143353, PCN: ASPROD1, Group: XXXXX, ID# [id number], Questions: . THIS IS NOT INSURANCE.] hydrocodone 10 mg-acetaminophen 325 mg tablet RxNorm: 272736 1 Tablet(s) PO Q4-6H as needed pain 03/12/2015 04/04/2015 Inactive [SAVINGS FOR NON-COVERED DRUGS -- BIN :116879, PCN: ASPROD1, Group: XXXXX, ID# [id number], Questions: . THIS IS NOT INSURANCE.] Anusol-HC 25 mg suppository RxNorm: 4596053 1 Suppository RTL QHS as needed 03/12/2015 04/10/2015 Inactive hydrocodone 10 mg-acetaminophen 325 mg tablet RxNorm: 098376 1 Tablet(s) PO Q4-6H as needed pain 02/08/2015 03/03/2015 Inactive [SAVINGS FOR NON-COVERED DRUGS -- BIN :646058, PCN: ASPROD1, Group: XXXXX, ID# [id number], Questions: . THIS IS NOT INSURANCE.] cyanocobalamin (vit B-12) 1,000 mcg/mL injection solution RxNorm: 698588 Milliliter(s) Inj 01/22/2015 01/22/2015 Inactive Vitamin D2 50,000 unit capsule RxNorm: 397614 1 Capsule(s) PO QW 01/10/2015 01/09/2015 Inactive Vitamin D2 50,000 unit capsule RxNorm: 424451 1 Capsule(s) PO QW 01/10/2015 04/09/2015 Inactive [SAVINGS FOR NON-COVERED DRUGS -- BIN:719982, PCN: ASPROD1, Group: XXXXX, ID# [id number], Questions: . THIS IS NOT INSURANCE.] Flonase 50 mcg/actuation nasal spray,suspension RxNorm: 0562683 1 [place] NASAL BID 01/09/2015 01/03/2016 Inactive [SAVINGS FOR UNINSURED PATIENTS -- BIN:057891, PCN: ASPROD1, Group: AME08, ID# [id number], Process claim through [employer], for questions: . THIS IS NOT INSURANCE.] Kenalog 40 mg/mL suspension for injection RxNorm: 2091575 1 Milliliter(s) Inj 01/08/2015 01/08/2015 Inactive Vitamin B-12 1,000 mcg/mL injection solution RxNorm: 244554 1 Milliliter(s) Inj 01/08/2015 01/08/2015 Inactive [SAVINGS FOR NON-COVERED DRUGS -- BIN:127179, PCN: ASPROD1, Group: XXXXX, ID# [id number], Questions: . THIS IS NOT INSURANCE.] bupropion HCl XL 300 mg 24 hr tablet, extended release RxNorm: 157873 1 Tablet(s) PO daily 01/08/2015 02/01/2016 Inactive this replaces the wellbutrin sr 150mg bid dose she currently has on file metoprolol tartrate 25 mg tablet RxNorm: 539739 1 Tablet(s) PO BID 12/17/2014 12/11/2015 Inactive hydrocodone 10 mg-acetaminophen 325 mg tablet RxNorm: 613687 1 Tablet(s) PO Q4-6H as needed pain 12/05/2014 12/28/2014 Inactive [SAVINGS FOR NON-COVERED DRUGS -- BIN :951370, PCN: ASPROD1, Group: XXXXX, ID# [id number], Questions: . THIS IS NOT INSURANCE.] cyanocobalamin (vit B-12) 1,000 mcg/mL injection solution RxNorm: 923026 Milliliter(s) Inj 11/28/2014 11/28/2014 Inactive [SAVINGS FOR NON-COVERED DRUGS -- BIN:535208, PCN: ASPROD1, Group: XXXXX, ID# [id number], Questions: [phone]. THIS IS NOT INSURANCE.] lisinopril 10 mg tablet RxNorm: 631649 1 tab(s) po daily 201402/10/2016 Inactive lisinopril 10 mg tablet RxNorm: 524005 1 Tablet(s) PO daily 11/04/2014 Inactive [SAVINGS FOR NON-COVERED DRUGS -- BIN:323839, PCN: ASPROD1, Group: XXXXX, ID# [id number], Questions: . THIS IS NOT INSURANCE.] alprazolam 1 mg tablet RxNorm: 010716 1 Tablet(s) PO Q8 PRN as needed TAKE 1 TABLET THREE TIMES DAILY NEEDED FOR ANXIETY. 10/31/2014 04/11/2015 Inactive ( Appended: Controlled substance eRx refill - RxReferenceNumber: [id number]) hydrocodone 10 mg-acetaminophen 325 mg tablet RxNorm: 025676 1 Tablet(s) PO Q4-6H as needed pain 10/31/2014 11/29/2014 Inactive [SAVINGS FOR NON-COVERED DRUGS -- BIN :386423, PCN: ASPROD1, Group: XXXXX, ID# [id number], Questions: . THIS IS NOT INSURANCE.] bupropion HCl XL 300 mg 24 hr tablet, extended release RxNorm: 501040 1 Tablet(s) PO daily 10/29/2014 01/07/2015 Inactive this replaces the wellbutrin sr 150mg bid dose she currently has on file cyanocobalamin (vit B-12) 1,000 mcg/mL injection solution RxNorm: 225124 Milliliter(s) Inj 10/04/2014 10/04/2014 Inactive [SAVINGS FOR UNINSURED PATIENTS - - BIN:506959, PCN: ASPROD1, Group: AME08, ID# [id number], Process claim through [employer], for questions: . THIS IS NOT INSURANCE.] hydrocodone 10 mg-acetaminophen 325 mg tablet RxNorm: 100533 1 Tablet(s) PO Q4-6H as needed pain 10/04/2014 10/30/2014 Inactive [SAVINGS FOR UNINSURED PATIENTS -- BIN:105766, PCN: ASPROD1, Group: AME08, ID# [id number], Process claim through [employer], for questions: . THIS IS NOT INSURANCE.] Flonase 50 mcg/actuation nasal spray,suspension RxNorm: 578051 1 [place] NASAL BID 10/04/2014 12/02/2014 Inactive [SAVINGS FOR UNINSURED PATIENTS -- BIN:569552, PCN: ASPROD1, Group: AME08, ID# [id number], Process claim through [employer], for questions: . THIS IS NOT INSURANCE.] hydrocodone 10 mg-acetaminophen 325 mg tablet RxNorm: 943435 1 Tablet(s) PO Q4-6H as needed pain 10/04/2014 11/02/2014 Inactive [SAVINGS FOR UNINSURED PATIENTS -- BIN:435722, PCN: ASPROD1, Group: AME08, ID# [id number], Process claim through [employer], for questions: . THIS IS NOT INSURANCE.] alprazolam 1 mg tablet RxNorm: 134618 1 Tablet(s) PO Q8 PRN as needed TAKE 1 TABLET THREE TIMES DAILY NEEDED FOR ANXIETY. 09/26/2014 10/30/2014 Inactive ( Appended: Controlled substance eRx refill - RxReferenceNumber: [id number]) cyanocobalamin (vit B-12) 1,000 mcg/mL injection solution RxNorm: 883859 Milliliter(s) Inj 09/10/2014 09/10/2014 Inactive [SAVINGS FOR UNINSURED PATIENTS - - BIN:085727, PCN: ASPROD1, Group: AME08, ID# [id number], Process claim through [employer], for questions: . THIS IS NOT INSURANCE.] omeprazole 20 mg tablet,delayed release RxNorm: 120685 1 Tablet(s) PO BID 09/10/2014 04/07/2015 Inactive [SAVINGS FOR UNINSURED PATIENTS -- BIN:494929, PCN: ASPROD1, Group: AME08, ID# [id number], Process claim through [employer], for questions: . THIS IS NOT INSURANCE.] hydrocodone 10 mg-acetaminophen 325 mg tablet RxNorm: 605942 1 Tablet(s) PO Q4-6H as needed pain 09/03/2014 10/02/2014 Inactive [SAVINGS FOR UNINSURED PATIENTS -- BIN:715252, PCN: ASPROD1, Group: AME08, ID# [id number], Process claim through [employer], for questions: . THIS IS NOT INSURANCE.] cyanocobalamin (vit B-12) 1,000 mcg/mL injection solution RxNorm: 885957 Milliliter(s) Inj 08/06/2014 08/06/2014 Inactive [SAVINGS FOR UNINSURED PATIENTS - - BIN:089566, PCN: ASPROD1, Group: AME08, ID# [id number], Process claim through [employer], for questions: . THIS IS NOT INSURANCE.] prednisone 20 mg tablet RxNorm: 340526 3 Tablet(s) PO daily 08/10/2014 Inactive hydrocodone 10 mg-acetaminophen 325 mg tablet RxNorm: 110757 1 Tablet(s) PO Q4-6H as needed pain 07/12/2014 08/10/2014 Inactive [SAVINGS FOR UNINSURED PATIENTS -- BIN:053324, PCN: ASPROD1, Group: AME08, ID# [id number], Process claim through [employer], for questions: . THIS IS NOT INSURANCE.] alprazolam 1 mg tablet RxNorm: 691338 1 Tablet(s) PO Q8 PRN as needed TAKE 1 TABLET THREE TIMES DAILY NEEDED FOR ANXIETY. 07/12/2014 09/25/2014 Inactive ( Appended: Controlled substance eRx refill - RxReferenceNumber: [id number]) cyanocobalamin (vit B-12) 1,000 mcg/mL injection solution RxNorm: 894371 Milliliter(s) Inj 07/12/2014 07/12/2014 Inactive [SAVINGS FOR UNINSURED PATIENTS - - BIN:083937, PCN: ASPROD1, Group: AME08, ID# [id number], Process claim through [employer], for questions: . THIS IS NOT INSURANCE.] hydrocodone 10 mg-acetaminophen 325 mg tablet RxNorm: 768791 1 Tablet(s) PO Q4-6H as needed pain 06/28/2014 07/11/2014 Inactive [SAVINGS FOR UNINSURED PATIENTS -- BIN:683613, PCN: ASPROD1, Group: AME08, ID# [id number], Process claim through [employer], for questions: . THIS IS NOT INSURANCE.] cyanocobalamin (vit B-12) 1,000 mcg/mL injection solution RxNorm: 127135 1 Milliliter(s) Inj 06/28/2014 06/28/2014 Inactive [SAVINGS FOR UNINSURED PATIENTS - - BIN:359395, PCN: ASPROD1, Group: AME08, ID# [id number], Process claim through [employer], for questions: . THIS IS NOT INSURANCE.] cyanocobalamin (vit B-12) 1,000 mcg/mL injection solution RxNorm: 217333 Milliliter(s) Inj 06/14/2014 06/14/2014 Inactive [SAVINGS FOR UNINSURED PATIENTS - - BIN:631827, PCN: ASPROD1, Group: AME08, ID# [id number], Process claim through [employer], for questions: . THIS IS NOT INSURANCE.] cyanocobalamin (vit B-12) 1,000 mcg/mL injection solution RxNorm: 466005 Milliliter(s) Inj 05/31/2014 05/31/2014 Inactive [SAVINGS FOR UNINSURED PATIENTS - - BIN:884113, PCN: ASPROD1, Group: AME08, ID# [id number], Process claim through [employer], for questions: . THIS IS NOT INSURANCE.] cyanocobalamin (vit B-12) 1,000 mcg/mL injection solution RxNorm: 339212 Milliliter(s) Inj 05/16/2014 05/16/2014 Inactive [SAVINGS FOR UNINSURED PATIENTS - - BIN:506938, PCN: ASPROD1, Group: AME08, ID# [id number], Process claim through [employer], for questions: . THIS IS NOT INSURANCE.] trazodone 50 mg tablet RxNorm: 620396 1 Tablet(s) PO QPM 201308/05/2014 Inactive [SAVINGS FOR UNINSURED PATIENTS -- BIN:516220, PCN: ASPROD1, Group: AME08, ID # [id number], Process claim through [employer], for questions: . THIS IS NOT INSURANCE.] alprazolam 1 mg tablet RxNorm: 020985 1 Tablet(s) PO Q8 PRN as needed TAKE 1 TABLET THREE TIMES DAILY NEEDED FOR ANXIETY. 04/27/2014 07/11/2014 Inactive ( Appended: Controlled substance eRx refill - RxReferenceNumber: [id number]) cyanocobalamin (vit B-12) 1,000 mcg/mL injection solution RxNorm: 793927 1 Milliliter(s) Inj 04/05/2014 04/05/2014 Inactive [SAVINGS FOR UNINSURED PATIENTS - - BIN:835657, PCN: ASPROD1, Group: AME08, ID# [id number], Process claim through [employer], for questions: . THIS IS NOT INSURANCE.] gabapentin 100 mg capsule RxNorm: 804100 TAKE 1 CAPSULE BY MOUTH 3 TIMES DAILY * SCHEDULED PREVENTION MEDICINE* 03/29/2014 03/23/2015 Inactive Generic For:NEURONTIN 100MG 03/29/2014 3:08:32 PM N O T I C E Last dispense quantity was less than original quantity written hydrocodone 10 mg-acetaminophen 325 mg tablet RxNorm: 326643 1 Tablet(s) PO Q4-6H as needed pain 03/05/2014 06/27/2014 Inactive [SAVINGS FOR UNINSURED PATIENTS -- [id number], PCN: [id number], Group: [id number], ID# [id number], Process claim through [employer], for questions: . THIS IS NOT INSURANCE.] bupropion HCl XL 300 mg 24 hr tablet, extended release RxNorm: 532740 1 Tablet(s) PO daily 03/05/2014 10/28/2014 Inactive this replaces the wellbutrin sr 150mg bid dose she currently has on file cyanocobalamin (vit B-12) 1,000 mcg/mL injection solution RxNorm: 253388 Milliliter(s) Inj 02/01/2014 02/01/2014 Inactive betamethasone valerate 0.1 % topical cream RxNorm: 062355 1 Application TOP BID 02/01/2014 02/01/2014 Inactive lisinopril 10 mg tablet RxNorm: 282815 1 Tablet(s) PO daily 07/201403/02/2014 Inactive Diflucan 150 mg tablet RxNorm: 393504 1 Tablet(s) PO every other day 01/22/2014 02/04/2014 Inactive doxycycline hyclate 100 mg tablet RxNorm: 891005 1 Tablet(s) PO BID 12/29/2013 12/28/2013 Inactive cyanocobalamin (vit B-12) 1,000 mcg/mL injection solution RxNorm: 611391 Milliliter(s) Inj 12/29/2013 12/29/2013 Inactive doxycycline hyclate 100 mg tablet RxNorm: 882003 1 Tablet(s) PO BID 12/29/2013 01/04/2014 Inactive metoprolol tartrate 25 mg tablet RxNorm: 585865 1 Tablet(s) PO BID 12/14/2013 12/08/2014 Inactive trimethoprim 0.1 %-polymyxin B 10,000 unit/mL eye drops RxNorm: 135268 2 Drop(s) OPH TID right eye 12/07/2013 12/13/2013 Inactive nystatin-triamcinolone 100,000 unit/g-0.1 % topical cream RxNorm: 9545925 1 TOP BID 12/07/2013 12/16/2013 Inactive Lipitor 20 mg tablet RxNorm: 340479 1 Tablet(s) PO QHS TAKE 1 TABLET BY MOUTH ONCE DAILY. 11/30/2013 11/24/2014 Inactive Lipitor 20 mg tablet RxNorm: 529523 1 Tablet(s) PO QHS TAKE 1 TABLET BY MOUTH ONCE DAILY. 11/30/2013 11/29/2013 Inactive hydrocodone 10 mg-acetaminophen 325 mg tablet RxNorm: 823092 1 Tablet(s) PO Q6 PRN 11/24/2013 No Stop Date Active Carafate 1 gram tablet RxNorm: 946555 1 Tablet(s) PO QID TAKE 1 TABLET BY MOUTH 4 TIMES DAILY. 10/09/2013 04/22/2016 Inactive alprazolam 1 mg tablet RxNorm: 523561 1 Tablet(s) PO Q8 PRN TAKE 1 TABLET THREE TIMES DAILY NEEDED FOR ANXIETY. 10/09/2013 No Stop Date Active (Appended: Controlled substance eRx refill - RxReferenceNumber: [id number]) isosorbide mononitrate ER 30 mg tablet,extended release 24 hr RxNorm: 217610 1 Tablet(s) PO daily TAKE 1 TABLET BY MOUTH ONCE DAILY. 201304/29/2014 Inactive hydrocodone 10 mg-acetaminophen 325 mg tablet RxNorm: 047122 Tablet(s) PO 09/04/2013 No Stop Date Active bupropion HCl XL 150 mg 24 hr tablet, extended release RxNorm: 681418 1 Tablet(s) PO daily 09/04/2013 03/04/2014 Inactive this replaces the wellbutrin sr 150mg bid dose she currently has on file Lipitor 20 mg tablet RxNorm: 602734 Tablet(s) PO TAKE 1 TABLET BY MOUTH ONCE DAILY. 08/21/2013 11/29/2013 Inactive hydrocodone 5 mg-acetaminophen 325 mg tablet RxNorm: 2423376 1 Tablet(s) PO Q6 PRN 08/11/2013 No Stop Date Active Lipitor 20 mg tablet RxNorm: 763621 Tablet(s) PO TAKE 1 TABLET BY MOUTH ONCE DAILY. 08/10/2013 08/20/2013 Inactive alprazolam 1 mg tablet RxNorm: 167295 1 Tablet(s) PO Q8 PRN TAKE 1 TABLET THREE TIMES DAILY NEEDED FOR ANXIETY. 08/10/2013 No Stop Date Active (Appended: Controlled substance eRx refill - RxReferenceNumber: [id number]) Lipitor 20 mg tablet RxNorm: 349551 Tablet(s) PO TAKE 1 TABLET BY MOUTH ONCE DAILY. 07/17/2013 08/09/2013 Inactive Lipitor 20 mg tablet RxNorm: 872055 1 Tablet(s) PO QPM TAKE 1 TABLET BY MOUTH ONCE DAILY. 07/05/2013 07/16/2013 Inactive Lipitor 20 mg tablet RxNorm: 987895 Tablet(s) PO TAKE 1 TABLET BY MOUTH ONCE DAILY. 06/19/2013 07/04/2013 Inactive Carafate 1 gram tablet RxNorm: 172924 Tablet(s) PO TAKE 1 TABLET BY MOUTH 4 TIMES DAILY. 06/16/2013 10/08/2013 Inactive isosorbide mononitrate ER 30 mg tablet,extended release 24 hr RxNorm: 356175 Tablet (s) PO TAKE 1 TABLET BY MOUTH ONCE DAILY. 06/16/2013 10/01/2013 Inactive hydrocodone 10 mg-acetaminophen 325 mg tablet RxNorm: 388830 Tablet(s) PO 05/18/2013 No Stop Date Active Lipitor 20 mg tablet RxNorm: 784024 Tablet(s) PO TAKE 1 TABLET BY MOUTH ONCE DAILY. 04/27/2013 06/18/2013 Inactive ketorolac 60 mg/2 mL IM RxNorm: 465308 1 Milliliter(s) IM 04/1804/18/2013 Inactive hydrocodone 10 mg-acetaminophen 325 mg tablet RxNorm: 8580073 Tablet(s) PO 04/10/2013 No Stop Date Active hydrocodone 5 mg-acetaminophen 325 mg tablet RxNorm: 2017810 1 Tablet(s) PO Q6 PRN 04/10/2013 No Stop Date Active alprazolam 1 mg tablet RxNorm: 581749 1 Tablet(s) PO Q8 PRN TAKE 1 TABLET THREE TIMES DAILY NEEDED FOR ANXIETY. 03/16/2013 No Stop Date Active (Appended: Controlled substance eRx refill - RxReferenceNumber: [id number]) metoprolol tartrate 25 mg tablet RxNorm: 908152 1 Tablet(s) PO BID 03/16/2013 10/11/2013 Inactive citalopram 40 mg tablet RxNorm: 766125 1 Tablet(s) PO QPM 03/1603/09/2014 Inactive hydrocodone 5 mg-acetaminophen 325 mg tablet RxNorm: 8535620 1 Tablet(s) PO Q6 PRN 01/26/2013 No Stop Date Active doxycycline hyclate 100 mg tablet,delayed release RxNorm: 432911 1 Tablet(s) PO BID 01/26/2013 02/08/2013 Inactive Diflucan 150 mg tablet RxNorm: 764752 1 Tablet(s) PO daily 01/201302/04/2013 Inactive gabapentin 100 mg capsule RxNorm: 850070 Capsule(s) PO TAKE (1) CAPSULE BY MOUTH THREE TIMES DAILY. 01/19/2013 07/13/2016 Inactive gabapentin 100 mg capsule RxNorm: 929374 Capsule(s) PO TAKE (1) CAPSULE BY MOUTH THREE TIMES DAILY. 01/19/2013 03/28/2014 Inactive prednisone 10 mg tablets in a dose pack RxNorm: 552460 Tablet(s) PO 12/27/2012 01/01/2013 Inactive Bactroban 2 % Topical Ointment RxNorm: 320263 1 Application TOP BID 12/27/2012 01/02/2013 Inactive gabapentin 100 mg capsule RxNorm: 688596 1 Capsule(s) PO TID 01/18/2013 Inactive TAKE 1 CAPSULE BY MOUTH 3 TIMES DAILY (SCHEDULED) Lipitor 20 mg tablet RxNorm: 276321 Tablet(s) PO TAKE 1 TABLET BY MOUTH ONCE DAILY. 11/17/2012 04/26/2013 Inactive citalopram 40 mg tablet RxNorm: 110983 1 Tablet(s) PO daily 03/15/2013 Inactive citalopram 40 mg tablet RxNorm: 652785 1 Tablet(s) PO daily 11/13/2012 Inactive alprazolam 1 mg tablet RxNorm: 149496 Tablet(s) PO TAKE 1 TABLET THREE TIMES DAILY NEEDED FOR ANXIETY. 10/04/2012 Inactive (Appended: Controlled substance eRx refill - RxReferenceNumber: [id number]) bupropion HCl XL 300 mg 24 hr tablet, extended release RxNorm: 523426 1 Tablet(s) PO daily 09/21/2012 09/03/2013 Inactive this replaces the wellbutrin sr 150mg bid dose she currently has on file hydrocodone 5 mg-acetaminophen 325 mg tablet RxNorm: 1924415 1 Tablet(s) PO Q6 PRN 09/08/2012 09/07/2012 Inactive hydrocodone-acetaminophen 5 mg-325 mg tablet RxNorm: 3090577 1 Tablet(s) PO Q6 PRN 09/08/2012 No Stop Date Active Wellbutrin SR 150 mg tablet,sustained-release RxNorm: 928207 Tablet(s) PO TAKE 1 TABLET BY MOUTH TWICE DAILY. 09/01/2012 Inactive clindamycin 300 mg capsule RxNorm: 034992 1 Capsule(s) PO BID 08/02/2012 08/15/2012 Inactive hydrocodone-acetaminophen 5 mg-325 mg tablet RxNorm: 8738513 1 Tablet(s) PO Q6 PRN 08/02/2012 09/07/2012 Inactive metronidazole 500 mg tablet RxNorm: 188482 1 Tablet(s) PO TID 08/02/2012 08/15/2012 Inactive Kenalog 40 mg/mL Susp for Injection RxNorm: 3813356 Milliliter(s) Inj 06/27/2012 06/27/2012 Inactive prednisone 10 mg tablets in a dose pack RxNorm: 661990 1 Tablet(s) PO as directed 06/27/2012 07/06/2012 Inactive alprazolam 1 mg tablet RxNorm: 168586 Tablet(s) PO 06/10/2012 10/04/2012 Inactive TAKE 1 TABLET THREE TIMES DAILY NEEDED FOR ANXIETY. (Appended: Controlled substance eRx refill - RxReferenceNumber: [id number]) Kenalog 40 mg/mL Susp for Injection RxNorm: 0327873 1 Milliliter(s) Inj 06/06/2012 06/06/2012 Inactive Voltaren 1 % Topical Gel RxNorm: 248138 1 Application TOP QID apply two grams to right elbow, 4 grams to right shoulder and neck, and 4 grams to sacroiliac joint 4 times daily 06/06/2012 06/05/2012 Inactive Voltaren 1 % Topical Gel RxNorm: 643351 1 Application TOP QID apply two grams to right elbow, 4 grams to right shoulder and neck, and 4 grams to sacroiliac joint 4 times daily 06/06/2012 08/31/2016 Inactive alprazolam 1 mg tablet RxNorm: 848698 Tablet(s) PO 06/06/2012 06/09/2012 Inactive TAKE 1 TABLET THREE TIMES DAILY NEEDED FOR ANXIETY. (Appended: Controlled substance eRx refill - RxReferenceNumber: [id number]) alprazolam 1 mg tablet RxNorm: 380290 Tablet(s) PO 06/01/2012 06/06/2012 Inactive TAKE 1 TABLET THREE TIMES DAILY NEEDED FOR ANXIETY. (Appended: Controlled substance eRx refill - RxReferenceNumber: [id number]) hydrocodone-acetaminophen 5 mg-325 mg tablet RxNorm: 6368900 1 Tablet(s) PO Q6 PRN 05/16/2012 08/01/2012 Inactive isosorbide mononitrate ER 30 mg tablet,extended release 24 hr RxNorm: 880966 Tablet (s) PO 03/14/2012 06/15/2013 Inactive TAKE 1 TABLET BY MOUTH ONCE DAILY. Lipitor 20 mg tablet RxNorm: 297264 Tablet(s) PO 03/14/2012 11/16/2012 Inactive TAKE 1 TABLET BY MOUTH ONCE DAILY. gabapentin 100 mg Cap RxNorm: 804497 Capsule(s) PO 03/03/2012 03/02/2012 Inactive TAKE 1 CAPSULE BY MOUTH 3 TIMES DAILY (SCHEDULED) isosorbide mononitrate ER 30 mg tablet,extended release 24 hr RxNorm: 995885 1 Tablet(s) PO daily 03/03/2012 No Stop Date Active gabapentin 100 mg capsule RxNorm: 974171 Capsule(s) PO 201112/18/2012 Inactive TAKE 1 CAPSULE BY MOUTH 3 TIMES DAILY (SCHEDULED) Celexa 20 mg Tab RxNorm: 927385 1 Tablet(s) PO daily 201111/14/2012 Inactive Vitamin B-12 1,000 mcg/mL Injection RxNorm: 084886 Milliliter(s) Inj 02/08/2012 02/08/2012 Inactive Wellbutrin SR 150 mg tablet,sustained-release RxNorm: 084202 1 Tablet(s) PO daily 02/08/2012 09/20/2012 Inactive Rocephin 500 mg Solution for Injection RxNorm: 272879 Inj 01/3102/01/2012 Inactive cefdinir 300 mg Cap RxNorm: 908830 1 Capsule(s) PO BID 201102/29/2012 Inactive triamcinolone acetonide 0.1 % Dental Paste RxNorm: 5058393 1 Application [place] QID 01/22/2012 01/28/2012 Inactive alprazolam 1 mg tablet RxNorm: 866010 1 Tablet(s) PO TID PRN 06/01/2012 Inactive alprazolam 1 mg Tab RxNorm: 220786 1 Tablet(s) PO TID PRN 01/10/2012 Inactive Carafate 1 gram tablet RxNorm: 976765 1 Tablet(s) PO QID 201112/04/2012 Inactive hydrocodone-acetaminophen 5 mg-325 mg Tab RxNorm: 7694890 1-2 Tablet(s) PO Q6 PRN 11/13/2011 12/12/2011 Inactive Kenalog 40 mg/mL Susp for Injection RxNorm: 7650956 1 Milliliter(s) Inj 10/20/2011 10/20/2011 Inactive Bactrim DS 800 mg-160 mg Tab RxNorm: 633865 1 Tablet(s) PO BID 10/19/2011 02/29/2012 Inactive alprazolam 1 mg Tab RxNorm: 898200 1 Tablet(s) PO TID PRN 11/17/2011 Inactive hydrocodone-acetaminophen 5 mg-325 mg Tab RxNorm: 7997421 1-2 Tablet(s) PO Q6 PRN 10/15/2011 11/12/2011 Inactive hydrocodone-acetaminophen 5 mg-325 mg Tab RxNorm: 2866661 1-2 Tablet(s) PO Q6 PRN 09/24/2011 10/14/2011 Inactive citalopram 40 mg Tab RxNorm: 017006 1 Tablet(s) PO daily 201102/29/2012 Inactive alprazolam 1 mg Tab RxNorm: 285842 1 Tablet(s) PO TID PRN 10/201110/18/2011 Inactive Wellbutrin SR 150 mg Tab RxNorm: 808814 1 Tablet(s) PO BID 10/201102/07/2012 Inactive Wellbutrin SR 150 mg tablet,sustained-release RxNorm: 640728 1 Tablet(s) PO BID 08/25/2011 02/01/2012 Inactive Lipitor 20 mg tablet RxNorm: 449676 1 Tablet(s) PO daily 201002/14/2012 Inactive Percocet 10 mg-325 mg Tab RxNorm: 3215728 1 Tablet(s) PO Q6 PRN 08/13/2011 02/29/2012 Inactive hydrocodone-acetaminophen 5 mg-325 mg Tab RxNorm: 1166393 1-2 Tablet(s) PO Q6 PRN 08/04/2011 09/23/2011 Inactive naproxen 500 mg tablet RxNorm: 377308 1 Tablet(s) PO BID 201001/25/2012 Inactive hydrochlorothiazide 25 mg Tab RxNorm: 756458 1 Tablet(s) PO daily 07/28/2011 01/23/2012 Inactive ketorolac 60 mg/2 mL IM RxNorm: 732275 Milliliter(s) IM 201007/15/2011 Inactive ketorolac 60 mg/2 mL IM RxNorm: 991690 Milliliter(s) IM 201007/02/2011 Inactive ketorolac 15 mg/mL Injection RxNorm: 280286 1 Milliliter(s) Inj 06/24/2011 07/02/2011 Inactive hydrocodone-acetaminophen 5 mg-325 mg Tab RxNorm: 9480501 1-2 Tablet(s) PO Q6 PRN 06/16/2011 08/03/2011 Inactive gabapentin 100 mg Cap RxNorm: 231398 1 Capsule(s) PO TID 201002/01/2012 Inactive lisinopril 10 mg tablet RxNorm: 442337 1 Tablet(s) PO daily 01/25/2012 Inactive alprazolam 1 mg Tab RxNorm: 865459 1 Tablet(s) PO TID PRN 08/24/2011 Inactive Mobic 15 mg Tab RxNorm : 801698 1 Tablet(s) PO daily 05/08/2011 02/01/2012 Inactive triamcinolone acetonide 0.5 % topical cream RxNorm: 6982576 TOP BID No Start Date Active Lipitor 10 mg Tab RxNorm: 998568 1 Tablet(s) PO daily No Start Date 02/01/2012 Inactive citalopram 40 mg Tab RxNorm: 860624 1 Tablet(s) PO daily No Start Date 02/01/2012 Inactive colestipol 1 gram Tab RxNorm: 4403032 1 Tablet(s) PO daily No Start Date 01/31/2012 Inactive hydrocodone-acetaminophen 5 mg-325 mg tablet RxNorm: 5678662 1 Tablet(s) PO PRN 1 tab q6hrs prn No Start Date 05/15/2012 Inactive lisinopril 10 mg Tab RxNorm: 269602 1 Tablet(s) PO daily No Start Date 06/15/2011 Inactive metoprolol succinate ER 25 mg 24 hr Tab RxNorm: 079217 1 Tablet(s) PO daily No Start Date 02/01/2012 Inactive hydrocodone-acetaminophen 5 mg-325 mg Tab RxNorm: 6719065 1 Tablet(s) PO Q6 PRN No Start Date 06/15/2011 Inactive hydrocodone 10 mg-acetaminophen 325 mg tablet RxNorm: 5015715 Tablet(s) PO No Start Date 04/10/2013 Inactive aspirin, buffered 81 mg Tab RxNorm: 108928 1 Tablet(s) PO daily No Start Date 04/16/2011 Inactive citalopram 40 mg Tab RxNorm: 604967 1 Tablet(s) PO daily No Start Date 02/01/2012 Inactive aspirin 81 mg Cap, Delayed Release RxNorm: 885893 1 Capsule(s) PO daily No Start Date 08/31/2016 Inactive isosorbide mononitrate ER 30 mg 24 hr Tab RxNorm: 494744 1 Tablet(s) PO daily No Start Date 02/01/2012 Inactive Fish Oil 1,000 mg Cap RxNorm: 1 Capsule(s) PO daily No Start Date 08/31/2016 Inactive prednisone 10 mg Tab RxNorm: 112571 1 Tablet(s) PO as doctor directed 6 po daily x 2days, then 4 daily x 2days, then2 daily x 2days, then 1 daily x 2days, then 1 /2 dailyx 4 d No Start Date 02/01/2012 Inactive alprazolam 1 mg Tab RxNorm: 218629 1 Tablet(s) PO TID PRN No Start Date 06/15/2011 Inactive Diflucan 150 mg tablet RxNorm: 113863 1 Tablet(s) PO every other day No Start Date 01/21/2014 Inactive betamethasone, augmented 0.05 % Topical Cream RxNorm: 568090 1 Application TOP No Start Date 02/01/2012 Inactive Carafate 1 gram Tab RxNorm: 259007 1 Tablet(s) PO AC & HS No Start Date 02/01/2012 Inactive Lyrica 50 mg Cap RxNorm: 463254 1 Capsule(s) PO TID No Start Date 02/01/2012 Inactive Fish Oil Oral RxNorm: Oral No Start Date Inactive Carafate 1 gram Tab RxNorm: 157172 1 Gram(s) PO AC & HS 1gm before meals and at bedtime No Start Date 02/01/2012 Inactive Zofran 4 mg tablet RxNorm: 476831 1 Tablet(s) PO TID as needed No Start Date 02/25/2017 Inactive metoprolol tartrate 25 mg tablet RxNorm: 947398 1 Tablet(s) PO daily No Start Date 03/15/2013 Inactive colestipol 1 gram Tab RxNorm: 4422549 1 Gram(s) PO daily No Start Date 08/31/2016 Inactive hydrochlorothiazide 25 mg Tab RxNorm: 226040 1 Tablet(s) PO daily No Start Date 01/25/2012 Inactive acyclovir 400 mg Tab RxNorm: 707795 1 Tablet(s) PO QID QID x 10 days then BID No Start Date 02/01/2012 Inactive Mobic 15 mg Tab RxNorm : 329076 1 Tablet(s) PO daily No Start Date 05/07/2011 Inactive hydrochlorothiazide 25 mg Tab RxNorm: 920924 1 Tablet(s) PO daily No Start Date 07/27/2011 Inactive isosorbide mononitrate ER 30 mg 24 hr Tab RxNorm: 569527 1 Tablet(s) PO daily No Start Date 01/31/2012 Inactive Lipitor 10 mg Tab RxNorm: 129728 1 Tablet(s) PO daily No Start Date 08/18/2011 Inactive alprazolam 1 mg Tab RxNorm: 285570 1 Tablet(s) PO PRN 1mg tid prn No Start Date 06/15/2011 Inactive Wellbutrin SR 150 mg Tab RxNorm: 372044 1 Tablet(s) PO BID No Start Date 02/01/2012 Inactive Medication Administered Medication Codes Instructions Start Date Status cyanocobalamin (vit B-12) 1,000 mcg/mL injection solution RxNorm: 385110 1Milliliter 05/27/2017 No longer Active cyanocobalamin (vit B-12) 1,000 mcg/mL injection solution RxNorm: 715237 1Milliliter 04/27/2017 No longer Active cyanocobalamin (vit B-12) 1,000 mcg/mL injection solution RxNorm: 803671 1Milliliter 04/09/2017 No longer Active cyanocobalamin (vit B-12) 1,000 mcg/mL injection solution RxNorm: 753148 Milliliter 03/23/2017 No longer Active cyanocobalamin (vit B-12) 1,000 mcg/mL injection solution RxNorm: 694424 Milliliter 03/11/2017 No longer Active Kenalog 40 mg/mL suspension for injection RxNorm: 8674370 1Milliliter 02/22/2017 No longer Active cyanocobalamin (vit B-12) 1,000 mcg/mL injection solution RxNorm: 461347 1Milliliter 10/14/2016 No longer Active cyanocobalamin (vit B-12) 1,000 mcg/mL injection solution RxNorm: 211988 Milliliter 09/16/2016 No longer Active cyanocobalamin (vit B-12) 1,000 mcg/mL injection solution RxNorm: 448620 1Milliliter 08/11/2016 No longer Active cyanocobalamin (vit B-12) 1,000 mcg/mL injection solution RxNorm: 579547 Milliliter 12/03/2015 No longer Active cyanocobalamin (vit B-12) 1,000 mcg/mL injection solution RxNorm: 429867 Milliliter 04/12/2015 No longer Active cyanocobalamin (vit B-12) 1,000 mcg/mL injection solution RxNorm: 097505 Milliliter 01/22/2015 No longer Active Vitamin B-12 1,000 mcg/mL injection solution RxNorm: 535405 1Milliliter 01/08/2015 No longer Active Kenalog 40 mg/mL suspension for injection RxNorm: 1790769 1Milliliter 01/08/2015 No longer Active cyanocobalamin (vit B-12) 1,000 mcg/mL injection solution RxNorm: 830083 Milliliter 11/28/2014 No longer Active cyanocobalamin (vit B-12) 1,000 mcg/mL injection solution RxNorm: 343686 Milliliter 10/04/2014 No longer Active cyanocobalamin (vit B-12) 1,000 mcg/mL injection solution RxNorm: 394379 Milliliter 09/10/2014 No longer Active cyanocobalamin (vit B-12) 1,000 mcg/mL injection solution RxNorm: 632362 Milliliter 08/06/2014 No longer Active cyanocobalamin (vit B-12) 1,000 mcg/mL injection solution RxNorm: 320414 Milliliter 07/12/2014 No longer Active cyanocobalamin (vit B-12) 1,000 mcg/mL injection solution RxNorm: 475766 1Milliliter 06/28/2014 No longer Active cyanocobalamin (vit B-12) 1,000 mcg/mL injection solution RxNorm: 247246 Milliliter 06/14/2014 No longer Active cyanocobalamin (vit B-12) 1,000 mcg/mL injection solution RxNorm: 343587 Milliliter 05/31/2014 No longer Active cyanocobalamin (vit B-12) 1,000 mcg/mL injection solution RxNorm: 779285 Milliliter 05/16/2014 No longer Active cyanocobalamin (vit B-12) 1,000 mcg/mL injection solution RxNorm: 665254 1Milliliter 04/05/2014 No longer Active cyanocobalamin (vit B-12) 1,000 mcg/mL injection solution RxNorm: 242889 Milliliter 02/01/2014 No longer Active cyanocobalamin (vit B-12) 1,000 mcg/mL injection solution RxNorm: 789909 Milliliter 12/29/2013 No longer Active ketorolac 60 mg/2 mL IM RxNorm: 990330 1Milliliter 04/18/2013 No longer Active Kenalog 40 mg/mL Susp for Injection RxNorm: 0091394 Milliliter 06/27/2012 No longer Active Kenalog 40 mg/mL Susp for Injection RxNorm: 8478217 1Milliliter 06/06/2012 No longer Active Vitamin B-12 1,000 mcg/mL Injection RxNorm: 808348 Milliliter 02/08/2012 No longer Active Rocephin 500 mg Solution for Injection RxNorm: 263840 02/01/2012 No longer Active Kenalog 40 mg/mL Susp for Injection RxNorm: 6410445 1Milliliter 10/20/2011 No longer Active ketorolac 60 mg/2 mL IM RxNorm: 368578 Milliliter 07/15/2011 No longer Active ketorolac 60 mg/2 mL IM RxNorm: 626162 Milliliter 07/02/2011 No longer Active Immunizations Vaccine [...] ref lab 12/25/2016 Vitamin D 25 Oh [id number] VITAMIN D, 25 HYDROXY 30.42 ng/mL Cbc [...] 30.1 pg 08/11/2016 Cbc With Differential Ord2 [place]% 8.4 % 08/11/2016 Cbc With Differential Ord2 [...] 1.87 K/ul 08/11/2016 Cbc With Differential Ord2 [place] ABS# 0.6 K/ul 08/11/2016 Cbc With Differential Ord2 Eos ABS# 0.1 K/ul 08/11/2016 Cbc With Differential Ord2 Baso ABS# 0.0 K/ul 08/11/2016 Tsh Ord6 hTSH II 0.90 uIU/mL 08/11/2016 Iron Ord72 Iron 135 ug/dl 08/11/2016 Ferritin Ord22 FERRITIN 135.3 ng/mL 08/11/2016 B12 Mng731 B12 >1500.00 pg/ml 08/11/2016 Comp Metabolic Xsu688 NA 138 mEq/L 08/11/2016 Comp Metabolic Qpp733 K 4.6 mEq/L 08/11/2016 Comp Metabolic Jep286 CL 102 mEq/L 08/11/2016 Comp Metabolic Zjr321 CO2 29.0 mEq/L 08/11/2016 Comp Metabolic Mcl742 ANION GAP 12 08/11/2016 Comp Metabolic Dnx689 GLUCOSE 83 mg/dL 08/11/2016 Comp Metabolic Kfg052 Creat 1.0 mg/dL 08/11/2016 Comp Metabolic Nxt020 eGFR 60 ml/min/1.73m2 08/11/2016 Comp Metabolic Tds126 BUN 14 mg/dL 08/11/2016 Comp Metabolic Hnf831 B/C Ratio 14.6 Ratio 08/11/2016 Comp Metabolic Jkm480 CALCIUM 10.2 mg/dL 08/11/2016 Comp Metabolic Ecd672 ALK PHOS 69 U/L 08/11/2016 Comp Metabolic Jux964 AST(SGOT) 15 U/L 08/11/2016 Comp Metabolic Iom614 ALT(SGPT) 12 U/L 08/11/2016 Comp Metabolic Qql094 BILI T 1.3 mg/dL 08/11/2016 Comp Metabolic Xew122 ALBUMIN 4.7 g/dL 08/11/2016 Comp Metabolic Qyv301 TPRO 7.3 g/dL 08/11/2016 Comp Metabolic Kfi876 GLOB 2.6 g/dL 08/11/2016 Comp Metabolic Sou731 A/G Ratio 1.9 Ratio 08/11/2016 Comp Metabolic Vim380 Osmo 275 mOsmo 08/11/2016 Culture Urine [id number] URINE CULTURE SEE NOTES 06/01/2016 Culture Urine [id number] Continued Results 06/01/2016 Urine Culture Ucult Complete [...] Ord15 CALCIUM 9.6 mg/dL 05/18/2016 Comp Metabolic Wek600 NA 143 mEq/L 04/28/2016 Comp Metabolic Sos949 K 3.3 mEq/L 04/28/2016 Comp Metabolic Gby012 CL 108 mEq/L 04/28/2016 Comp Metabolic Kuq009 CO2 27.0 mEq/L 04/28/2016 Comp Metabolic Qkw340 ANION GAP 11 04/28/2016 Comp Metabolic Qvo981 GLUCOSE 103 mg/dL 04/28/2016 Comp Metabolic Zmj336 Creat 0.8 mg/dL 04/28/2016 Comp Metabolic Uul720 eGFR 79 ml/min/1.73m2 04/28/2016 Comp Metabolic Gte893 BUN 11 mg/dL 04/28/2016 Comp Metabolic Hds084 B/C Ratio 14.5 Ratio 04/28/2016 Comp Metabolic Fwh902 CALCIUM 9.1 mg/dL 04/28/2016 Comp Metabolic Vwj863 ALK PHOS 60 U/L 04/28/2016 Comp Metabolic Pon047 AST(SGOT) 15 U/L 04/28/2016 Comp Metabolic Hcn682 ALT(SGPT) 13 U/L 04/28/2016 Comp Metabolic Ovb495 BILI T 1.0 mg/dL 04/28/2016 Comp Metabolic Iiz177 ALBUMIN 4.1 g/dL 04/28/2016 Comp Metabolic Ldf159 TPRO 6.5 g/dL 04/28/2016 Comp Metabolic Dvm741 GLOB 2.4 g/dL 04/28/2016 Comp Metabolic Kho840 A/G Ratio 1.7 Ratio 04/28/2016 Comp Metabolic Bie758 Osmo 285 mOsmo 04/28/2016 Cbc With Differential [...] 29.1 pg 04/28/2016 Cbc With Differential Ord2 [place]% 9.2 % 04/28/2016 Cbc With Differential Ord2 [...] 1.40 K/ul 04/28/2016 Cbc With Differential Ord2 [place] ABS# 0.5 K/ul 04/28/2016 Cbc With Differential Ord2 Eos ABS# 0.2 K/ul 04/28/2016 Cbc With Differential Ord2 Baso ABS# 0.0 K/ul 04/28/2016 Lipid Ord30 CHOL 131 mg/dL 04/28/2016 Lipid Ord30 HDL 36.0 mg/dl 04/28/2016 Lipid Ord30 TRIG 134 mg/dL 04/28/2016 Lipid Ord30 LDL 68 mg/dL 04/28/2016 Lipid Ord30 C/HDL 3.6 Ratio 04/28/2016 Tsh Ord6 hTSH II 1.10 uIU/mL 04/28/2016 Culture Urine [id number] URINE CULTURE SEE NOTES 03/16/2016 Culture Urine [id number] Continued Results 03/16/2016 Urine Culture Ucult Complete >100,000 col/ml aerobic growth sent to ref lab 03/14/2016 Lipid Ord30 CHOL 226 mg/dL 10/15/2015 Lipid Ord30 HDL 44.0 mg/dl 10/15/2015 Lipid Ord30 TRIG 220 mg/dL 10/15/2015 Lipid Ord30 LDL 138 mg/dL 10/15/2015 Lipid Ord30 C/HDL 5.1 Ratio 10/15/2015 Comp Metabolic Pje024 NA 139 mEq/L 10/15/2015 Comp Metabolic Eep181 K 4.2 mEq/L 10/15/2015 Comp Metabolic Xaj147 CL 104 mEq/L 10/15/2015 Comp Metabolic Hdc702 CO2 25.0 mEq/L 10/15/2015 Comp Metabolic Qyq080 ANION GAP 14 10/15/2015 Comp Metabolic Rvh251 GLUCOSE 114 mg/dL 10/15/2015 Comp Metabolic Uhx721 Creat 1.0 mg/dL 10/15/2015 Comp Metabolic Gtt983 eGFR 59 ml/min/1.73m2 10/15/2015 Comp Metabolic Hkp299 BUN 18 mg/dL 10/15/2015 Comp Metabolic Mvu573 B/C Ratio 18.4 Ratio 10/15/2015 Comp Metabolic Gid066 CALCIUM 9.8 mg/dL 10/15/2015 Comp Metabolic Zim369 ALK PHOS 59 U/L 10/15/2015 Comp Metabolic Jja736 AST(SGOT) 14 U/L 10/15/2015 Comp Metabolic Ogw708 ALT(SGPT) 13 U/L 10/15/2015 Comp Metabolic Vuo960 BILI T 0.9 mg/dL 10/15/2015 Comp Metabolic Ipd574 ALBUMIN 4.2 g/dL 10/15/2015 Comp Metabolic Exi088 TPRO 6.6 g/dL 10/15/2015 Comp Metabolic Srs451 GLOB 2.4 g/dL 10/15/2015 Comp Metabolic Cbn439 A/G Ratio 1.8 Ratio 10/15/2015 Comp Metabolic Awn326 Osmo 280 mOsmo 10/15/2015 Tsh Ord6 hTSH [...] 29.7 pg 10/15/2015 Cbc With Differential Ord2 [place]% 8.5 % 10/15/2015 Cbc With Differential Ord2 [...] 1.95 K/ul 10/15/2015 Cbc With Differential Ord2 [place] ABS# 0.6 K/ul 10/15/2015 Cbc With Differential Ord2 [place] ABS# 0.2 K/ul 10/15/2015 Cbc With Differential Ord2 Baso ABS# 0.0 K/ul 10/15/2015 Cbc With Differential Ord2 New Analyzer Notice Please note new ref ranges starting 09-04-2015 due to implemntation of new five part differential hematolgy analyzer. 10/15/2015 Comp Metabolic Qcf782 NA 136 mEq/L 04/12/2015 Comp Metabolic Niw670 K 4.4 mEq/L 04/12/2015 Comp Metabolic Hbi303 CL 102 mEq/L 04/12/2015 Comp Metabolic Swo412 CO2 28.0 mEq/L 04/12/2015 Comp Metabolic Qkf778 ANION GAP 10 04/12/2015 Comp Metabolic Rds416 GLUCOSE 86 mg/dL 04/12/2015 Comp Metabolic Nyx810 Creat 0.9 mg/dL 04/12/2015 Comp Metabolic Fmj984 eGFR 70 ml/min/1.73m2 04/12/2015 Comp Metabolic Cna043 BUN 17 mg/dL 04/12/2015 Comp Metabolic Adw734 B/C Ratio 20.0 Ratio 04/12/2015 Comp Metabolic Qkm314 CALCIUM 9.6 mg/dL 04/12/2015 Comp Metabolic Cnf592 ALK PHOS 60 U/L 04/12/2015 Comp Metabolic Bfo929 AST(SGOT) 16 U/L 04/12/2015 Comp Metabolic Bfr356 ALT(SGPT) 14 U/L 04/12/2015 Comp Metabolic Wty733 BILI T 1.0 mg/dL 04/12/2015 Comp Metabolic Bvj772 ALBUMIN 4.4 g/dL 04/12/2015 Comp Metabolic Cvu015 TPRO 6.8 g/dL 04/12/2015 Comp Metabolic Xic175 GLOB 2.4 g/dL 04/12/2015 Comp Metabolic Mob076 A/G Ratio 1.8 Ratio 04/12/2015 Comp Metabolic Ljl713 Osmo 273 mOsmo 04/12/2015 Cbc With Differential [...] Differential Ord2 RDW 15.0 % 04/12/2015 B12 [id number] B12 >1500.00 pg/ml 04/12/2015 Tsh Ord6 hTSH II 1.17 uIU/mL 04/12/2015 Vitamin D 25 Oh [id number] VITAMIN D, 25 HYDROXY 62.36 ng/mL A1C HPLC 3600300 A1C HPLC 35305-8 6.1 % 01/24/2013 TSH 7096682 TSH 1.854 uIU/ML 01/23/2013 GFR CALC 6390033 GFR AA >60 ML/MIN 01/23/2013 GFR CALC 2549518 GFR NON-AA >60 ML/MIN 01/23/2013 CBC 5254460 WBC 8.7 10e9/L 01/23/2013 CBC 3650103 RBC 3.84 10e12/L 01/23/2013 CBC 5106340 HGB 11.3 g/dL 01/23/2013 CBC 4524895 HCT DET 34.5 % 01/23/2013 CBC 5772127 MCV 89.8 fL 01/23/2013 CBC 2506479 MCH 29.4 pg 01/23/2013 CBC 1785547 MCHC 32.8 g/dL 01/23/2013 CBC 8439599 PLT 384 10e9/L 01/23/2013 CBC 5659509 MPV 10.7 fL 01/23/2013 CBC 6082949 CHRISTIANNE % 70.2 % 01/23/2013 CBC 0678064 LY % 19.2 % 01/23/2013 CBC 9936100 MON % 6.9 % 01/23/2013 CBC 4254043 EOS % 3.5 % 01/23/2013 CBC 8050146 BASO % 0.2 % 01/23/2013 CBC 4460575 RDW 13.0 % 01/23/2013 CBC 9759271 ABS CHRISTIANNE 6.11 10e9/L 01/23/2013 CBC 5954507 ABS LYMPH 1.67 10e9/L 01/23/2013 CBC 8410564 ABS MONO 0.60 10e9/L 01/23/2013 CBC 8492948 ABS EOS 0.30 10e9/L 01/23/2013 CBC 4010375 ABS BASO 0.02 10e9/L 01/23/2013 CBC 2137208 RDW-SD 42.1 fL 01/23/2013 CHEM 14 6884975 AST 11 U/L 01/23/2013 CHEM 14 4742400 ALT 16 IU/L 01/23/2013 CHEM 14 0313229 BUN 10 MG/DL 01/23/2013 CHEM 14 0098534 ALBUMIN 4.4 GM/DL 01/23/2013 CHEM 14 1370521 CHLORIDE 104 MMOL/L 01/23/2013 CHEM 14 1794309 BILI TOT 1.1 MG/DL 01/23/2013 CHEM 14 4507389 ALK PHOS 74 U/L 01/23/2013 CHEM 14 8065852 SODIUM 141 MMOL/L 01/23/2013 CHEM 14 2478926 CREATININE 0.76 MG/DL 01/23/2013 CHEM 14 2490016 CALCIUM 9.4 MG/DL 01/23/2013 CHEM 14 6245197 POTASSIUM 3.4 MMOL/L 01/23/2013 CHEM 14 3491497 PROT TOT 6.6 GM/DL 01/23/2013 CHEM 14 8462644 GLUCOSE 107 MG/DL 01/23/2013 CHEM 14 7699375 BICARB 28 MMOL/L 01/23/2013 CHEM 14 1813670 ANION GAP 9 MEQ/L 01/23/2013 ESR 6532249 ESR 28 MM/HR 12/28/2012 CRP 2976630 CRP 0.5 MG/DL 12/28/2012 VIT B 12 4733189 VIT B 12 760 PG/ML 12/28/2012 URIC ACID 8814142 URIC ACID 4.4 MG/DL 12/27/2012 GFR CALC 8500354 GFR AA >60 ML/MIN 12/27/2012 GFR CALC 7045574 GFR NON-AA >60 ML/MIN 12/27/2012 CHEM 14 2620463 AST 16 U/L 12/27/2012 CHEM 14 3861994 ALT 17 IU/L 12/27/2012 CHEM 14 7623836 BUN 8 MG/DL 12/27/2012 CHEM 14 2734609 ALBUMIN 4.4 GM/DL 12/27/2012 CHEM 14 8566951 CHLORIDE 104 MMOL/L 12/27/2012 CHEM 14 5321149 BILI TOT 1.0 MG/DL 12/27/2012 CHEM 14 4859268 ALK PHOS 79 U/L 12/27/2012 CHEM 14 1608715 SODIUM 142 MMOL/L 12/27/2012 CHEM 14 8769966 CREATININE 0.72 MG/DL 12/27/2012 CHEM 14 0151353 CALCIUM 9.3 MG/DL 12/27/2012 CHEM 14 3243450 POTASSIUM 3.4 MMOL/L 12/27/2012 CHEM 14 5108380 PROT TOT 6.9 GM/DL 12/27/2012 CHEM 14 8533804 GLUCOSE 96 MG/DL 12/27/2012 CHEM 14 6656161 BICARB 32 MMOL/L 12/27/2012 CHEM 14 0528290 ANION GAP 6 MEQ/L 12/27/2012 CBC 2121217 WBC 8.2 10e9/L 12/27/2012 CBC 7288177 RBC 3.75 10e12/L 12/27/2012 CBC 8531247 HGB 11.1 g/dL 12/27/2012 CBC 8094460 HCT DET 34.2 % 12/27/2012 CBC 7707873 MCV 91.2 fL 12/27/2012 CBC 9879506 MCH 29.6 pg 12/27/2012 CBC 1413905 MCHC 32.5 g/dL 12/27/2012 CBC 2604329 PLT 335 10e9/L 12/27/2012 CBC 7425870 MPV 10.7 fL 12/27/2012 CBC 0099257 CHRISTIANNE % 68.2 % 12/27/2012 CBC 2427437 LY % 22.0 % 12/27/2012 CBC 9131673 MON % 7.3 % 12/27/2012 CBC 5059720 EOS % 2.3 % 12/27/2012 CBC 8171000 BASO % 0.2 % 12/27/2012 CBC 0940847 RDW 12.8 % 12/27/2012 CBC 3223283 ABS CHRISTIANNE 5.59 10e9/L 12/27/2012 CBC 5901412 ABS LYMPH 1.80 10e9/L 12/27/2012 CBC 3623539 ABS MONO 0.60 10e9/L 12/27/2012 CBC 1252382 ABS EOS 0.19 10e9/L 12/27/2012 CBC 1824364 ABS BASO 0.02 10e9/L 12/27/2012 CBC 3209443 RDW-SD 41.4 fL 12/27/2012 A1C HPLC 9579441 A1C HPLC 08329-5 5.4 % 10/10/2012 LIPID GRP HDL TEST 45 MG/DL 10/07/2012 LIPID GRP TRIG 182 MG/DL 10/07/2012 LIPID GRP TEST LDL 94 MG/DL 10/07/2012 LIPID GRP CHOL 175 MG/DL 10/07/2012 LIPID GRP RCHOL/HDL 3.89 RATIO 10/07/2012 TSH 7637984 TSH 1.239 uIU/ML 10/07/2012 GFR CALC 9427831 GFR AA >60 ML/MIN 10/07/2012 GFR CALC 7819619 GFR NON-AA >60 ML/MIN 10/07/2012 CBC 8793742 WBC 7.1 10e9/L 10/07/2012 CBC 7633397 RBC 3.98 10e12/L 10/07/2012 CBC 8820580 HGB 11.8 g/dL 10/07/2012 CBC 7879633 HCT DET 36.0 % 10/07/2012 CBC 6089628 MCV 90.5 fL 10/07/2012 CBC 2909610 MCH 29.6 pg 10/07/2012 CBC 9387069 MCHC 32.8 g/dL 10/07/2012 CBC 9082150 PLT 333 10e9/L 10/07/2012 CBC 7852921 MPV 11.5 fL 10/07/2012 CBC 2296132 CHRISTIANNE % 65.7 % 10/07/2012 CBC 2161128 LY % 24.0 % 10/07/2012 CBC 5588824 MON % 7.4 % 10/07/2012 CBC 4621134 EOS % 2.5 % 10/07/2012 CBC 8817620 BASO % 0.4 % 10/07/2012 CBC 6124816 RDW 12.7 % 10/07/2012 CBC 1814960 ABS CHRISTIANNE 4.66 10e9/L 10/07/2012 CBC 6259399 ABS LYMPH 1.70 10e9/L 10/07/2012 CBC 5138214 ABS MONO 0.53 10e9/L 10/07/2012 CBC 6603296 ABS EOS 0.18 10e9/L 10/07/2012 CBC 3999508 ABS BASO 0.03 10e9/L 10/07/2012 CBC 7847432 RDW-SD 41.3 fL 10/07/2012 CHEM 14 5056816 AST 15 U/L 10/07/2012 CHEM 14 5662858 ALT 15 IU/L 10/07/2012 CHEM 14 5787329 BUN 7 MG/DL 10/07/2012 CHEM 14 4316037 ALBUMIN 4.3 GM/DL 10/07/2012 CHEM 14 0083797 CHLORIDE 103 MMOL/L 10/07/2012 CHEM 14 1184415 BILI TOT 1.2 MG/DL 10/07/2012 CHEM 14 0142148 ALK PHOS 83 U/L 10/07/2012 CHEM 14 4816436 SODIUM 139 MMOL/L 10/07/2012 CHEM 14 4950494 CREATININE 0.74 MG/DL 10/07/2012 CHEM 14 8279445 CALCIUM 9.4 MG/DL 10/07/2012 CHEM 14 3711153 POTASSIUM 3.6 MMOL/L 10/07/2012 CHEM 14 4682777 PROT TOT 6.6 GM/DL 10/07/2012 CHEM 14 8408286 GLUCOSE 114 MG/DL 10/07/2012 CHEM 14 3264266 BICARB 25 MMOL/L 10/07/2012 CHEM 14 9879225 ANION GAP 11 MEQ/L 10/07/2012 MAGNESIUM 0984400 MAGNESIUM 1.5 MEQ/L 02/02/2012 GFR CALC 1166705 GFR AA >60 ML/MIN 02/01/2012 GFR CALC 9471684 GFR NON-AA 53.0L ML/MIN 02/01/2012 CHEM 14 9390742 AST 12 U/L 02/01/2012 CHEM 14 0811963 ALT 12 IU/L 02/01/2012 CHEM 14 8745964 BUN 24 MG/DL 02/01/2012 CHEM 14 8015871 ALBUMIN 4.3 GM/DL 02/01/2012 CHEM 14 6057015 CHLORIDE 108 MMOL/L 02/01/2012 CHEM 14 4264256 BILI TOT 0.6 MG/DL 02/01/2012 CHEM 14 9540579 ALK PHOS 69 U/L 02/01/2012 CHEM 14 6035640 SODIUM 142 MMOL/L 02/01/2012 CHEM 14 9695418 CREATININE 1.03 MG/DL 02/01/2012 CHEM 14 8608287 CALCIUM 9.5 MG/DL 02/01/2012 CHEM 14 3245782 POTASSIUM 5.1 MMOL/L 02/01/2012 CHEM 14 5494443 PROT TOT 6.7 GM/DL 02/01/2012 CHEM 14 8566384 GLUCOSE 112 MG/DL 02/01/2012 CHEM 14 2333618 BICARB 22 MMOL/L 02/01/2012 CHEM 14 1766942 ANION GAP 12 MEQ/L 02/01/2012 CBC 8338675 WBC 9.6 10e9/L 01/22/2012 CBC 6477411 RBC 3.71 10e12/L 01/22/2012 CBC 8447409 HGB 10.8 g/dL 01/22/2012 CBC 9264031 HCT DET 33.4 % 01/22/2012 CBC 5085411 MCV 90.0 fL 01/22/2012 CBC 6759788 MCH 29.1 pg 01/22/2012 CBC 5257072 MCHC 32.3 g/dL 01/22/2012 CBC 9995732 PLT 359 10e9/L 01/22/2012 CBC 6017514 MPV 10.4 fL 01/22/2012 CBC 9315825 CHRISTIANNE % 66.2 % 01/22/2012 CBC 7492927 LY % 22.4 % 01/22/2012 CBC 8013058 MON % 8.4 % 01/22/2012 CBC 3955946 EOS % 2.8 % 01/22/2012 CBC 8634115 BASO % 0.2 % 01/22/2012 CBC 4385896 RDW 14.2 % 01/22/2012 CBC 1430385 ABS CHRISTIANNE 6.36 10e9/L 01/22/2012 CBC 7136669 ABS LYMPH 2.15 10e9/L 01/22/2012 CBC 9987510 ABS MONO 0.81 10e9/L 01/22/2012 CBC 0473474 ABS EOS 0.27 10e9/L 01/22/2012 CBC 1439470 ABS BASO 0.02 10e9/L 01/22/2012 CBC 8333906 RDW-SD 44.8 fL 01/22/2012 TSH 1386439 TSH 1.539 uIU/ML 01/22/2012 GFR CALC 8391681 GFR AA 26.0L ML/MIN 01/22/2012 GFR CALC 2064950 GFR NON-AA 22.0 ML/MIN 01/22/2012 CHEM 14 4314679 AST 13 U/L 01/22/2012 CHEM 14 2373822 ALT 13 IU/L 01/22/2012 CHEM 14 8741754 BUN 42 MG/DL 01/22/2012 CHEM 14 0135605 ALBUMIN 4.4 GM/DL 01/22/2012 CHEM 14 0322842 CHLORIDE 103 MMOL/L 01/22/2012 CHEM 14 6980092 BILI TOT 0.8 MG/DL 01/22/2012 CHEM 14 1690548 ALK PHOS 82 U/L 01/22/2012 CHEM 14 7925678 SODIUM 138 MMOL/L 01/22/2012 CHEM 14 1954444 CREATININE 2.23 MG/DL 01/22/2012 CHEM 14 9872501 CALCIUM 9.7 MG/DL 01/22/2012 CHEM 14 1144954 POTASSIUM 4.9 MMOL/L 01/22/2012 CHEM 14 8340029 PROT TOT 7.1 GM/DL 01/22/2012 CHEM 14 0656071 GLUCOSE 92 MG/DL 01/22/2012 CHEM 14 3691794 BICARB 20 MMOL/L 01/22/2012 CHEM 14 0979197 ANION GAP 15 MEQ/L 01/22/2012 LIPID GRP HDL TEST 35 MG/DL 01/22/2012 LIPID GRP TRIG 320 MG/DL 01/22/2012 LIPID GRP TEST LDL 89 MG/DL 01/22/2012 LIPID GRP CHOL 188 MG/DL 01/22/2012 LIPID GRP RCHOL/HDL 5.37 RATIO 01/22/2012 URINALYSIS NONAUTO W/O SCOPE 95228 Specific [place] 1.030 DateTime(Free Text in Aprima) URINALYSIS NONAUTO W/O SCOPE 89965 PH 6 DateTime(Free Text in Aprima) URINALYSIS NONAUTO W/O SCOPE 40224 GLUCOSE neg DateTime( Free Text in Aprima) URINALYSIS NONAUTO W/O SCOPE 32114 Protein neg DateTime( Free Text in Aprima) URINALYSIS NONAUTO W/O SCOPE 93233 Blood neg DateTime(Free Text in Aprima) URINALYSIS NONAUTO W/O SCOPE 13097 Bilirubin neg DateTime(Free Text in Apr) URINALYSIS NONAUTO W/O SCOPE 62577 Ketones neg DateTime( Free Text in Apr) URINALYSIS NONAUTO W/O SCOPE 62335 Urobilinogen neg DateTime(Free Text in Aprima) URINALYSIS NONAUTO W/O SCOPE 65288 Nitrite neg DateTime( Free Text in Aprima) URINALYSIS NONAUTO W/O SCOPE 94898 Leukocytes neg DateTime(Free Text in ) Review [...] NO PRSV 4 ABDOULAYE 3 YRS+ CPT-4: 01082 05/27/2017 ADMIN INFLUENZA VIRUS VAC CPT-4: G0008 05/27/2017 THER/PROPH/DIAG INJ SC/IM CPT-4: 49691 05/27/2017 VITAMIN B12 INJECTION CPT-4: J3420 05/27/2017 THER/PROPH/DIAG INJ SC/IM CPT-4: 24116 04/27/2017 VITAMIN B12 INJECTION CPT-4: J3420 04/27/2017 THER/PROPH/DIAG INJ SC/IM CPT-4: 69214 04/09/2017 VITAMIN B12 INJECTION CPT-4: J3420 04/09/2017 THER/PROPH/DIAG INJ SC/IM CPT-4: 27423 03/23/2017 VITAMIN B12 INJECTION CPT-4: J3420 03/23/2017 THER/PROPH/DIAG INJ SC/IM CPT-4: 78538 03/11/2017 VITAMIN B12 INJECTION CPT-4: J3420 03/11/2017 URINALYSIS NONAUTO W/O SCOPE CPT-4: 40538 02/22/2017 THER/PROPH/DIAG INJ SC/IM CPT-4: 42806 02/22/2017 TRIAMCINOLONE ACET INJ NOS CPT-4: J3301 02/22/2017 PPPS, SUBSEQ VISIT CPT -4: G0439 12/28/2016 URINALYSIS NONAUTO W/O SCOPE CPT-4: 95550 12/24/2016 THER/PROPH/DIAG INJ SC/IM CPT-4: 03303 10/14/2016 VITAMIN B12 INJECTION CPT-4: J3420 10/14/2016 THER/PROPH/DIAG INJ SC/IM CPT-4: 61155 09/16/2016 VITAMIN B12 INJECTION CPT-4: J3420 09/16/2016 THER/PROPH/DIAG INJ SC/IM CPT-4: 17416 08/11/2016 VITAMIN B12 INJECTION CPT-4: J3420 08/11/2016 URINALYSIS NONAUTO W/O SCOPE CPT-4: 58951 05/27/2016 ADMIN INFLUENZA VIRUS VAC CPT-4: G0008 04/23/2016 FLU VACC PRSV FREE INC ANTIG CPT-4: 85627 04/23/2016 URINALYSIS NONAUTO W/O SCOPE CPT-4: 57696 03/13/2016 URINALYSIS NONAUTO W/O SCOPE CPT-4: 81531 03/03/2016 VITAMIN B12 INJECTION CPT-4: J3420 12/03/2015 THER/PROPH/DIAG INJ SC/IM CPT-4: 43398 04/12/2015 VITAMIN B12 INJECTION CPT-4: J3420 04/12/2015 VITAMIN B12 INJECTION CPT-4: J3420 01/22/2015 THER/PROPH/DIAG INJ SC/IM CPT-4: 58321 01/22/2015 TRIAMCINOLONE ACET INJ NOS CPT-4: J3301 01/08/2015 THER/PROPH/DIAG INJ SC/IM CPT-4: 91298 01/08/2015 VITAMIN B12 INJECTION CPT-4: J3420 01/08/2015 THER/PROPH/DIAG INJ SC/IM CPT-4: 17741 11/28/2014 VITAMIN B12 INJECTION CPT-4: J3420 11/28/2014 THER/PROPH/DIAG INJ SC/IM CPT-4: 71322 10/04/2014 VITAMIN B12 INJECTION CPT-4: J3420 10/04/2014 VITAMIN B12 INJECTION CPT-4: J3420 09/10/2014 ADMIN PNEUMOCOCCAL VACCINE SNOMED CT: 05608234 CPT-4: G0009 08/06/2014 Pneumococcal Polysaccharide Vaccine, 23-Valent, Ad CPT-4: 77497 08/06/2014 THER/PROPH/DIAG INJ SC/IM CPT-4: 64670 08/06/2014 VITAMIN B12 INJECTION CPT-4: J3420 08/06/2014 THER/PROPH/DIAG INJ SC/IM CPT-4: 11532 07/12/2014 VITAMIN B12 INJECTION CPT-4: J3420 07/12/2014 THER/PROPH/DIAG INJ SC/IM CPT-4: 76247 06/28/2014 VITAMIN B12 INJECTION CPT-4: J3420 06/28/2014 THER/PROPH/DIAG INJ SC/IM CPT-4: 80753 06/14/2014 VITAMIN B12 INJECTION CPT-4: J3420 06/14/2014 THER/PROPH/DIAG INJ SC/IM CPT-4: 01391 05/31/2014 VITAMIN B12 INJECTION CPT-4: J3420 05/31/2014 ADMIN INFLUENZA VIRUS VAC CPT-4: G0008 05/16/2014 FLU VAC NO PRSV 4 ABDOULAYE 3 YRS+ Assigned to/Sandrine Velasquez CPT-4: 53500Umlbfwh 05/16/2014 THER/PROPH/DIAG INJ SC/IM CPT-4: 98699 05/16/2014 VITAMIN B12 INJECTION CPT-4: J3420 05/16/2014 THER/PROPH/DIAG INJ SC/IM CPT-4: 12783 04/05/2014 VITAMIN B12 INJECTION CPT-4: J3420 04/05/2014 THER/PROPH/DIAG INJ SC/IM CPT-4: 47736 02/01/2014 VITAMIN B12 INJECTION CPT-4: J3420 02/01/2014 THER/PROPH/DIAG INJ SC/IM CPT-4: 07613 12/29/2013 VITAMIN B12 INJECTION CPT-4: J3420 12/29/2013 TRIAMCINOLONE ACET INJ NOS CPT-4: J3301 05/18/2013 DRAIN/INJECT JOINT/BURSA CPT-4: 82730 05/18/2013 THER/PROPH/DIAG INJ SC/IM CPT-4: 30020 04/18/2013 KETOROLAC TROMETHAMINE INJ CPT-4: J1885 04/18/2013 PRESCRIP TRANSMIT VIA ERX SY CPT-4: G8553 03/16/2013 PRESCRIP TRANSMIT VIA ERX SY CPT-4: G8553 01/26/2013 ROUTINE VENIPUNCTURE CPT-4: 34913 01/23/2013 ROUTINE VENIPUNCTURE CPT-4: 91560 12/27/2012 PRESCRIP TRANSMIT VIA ERX SY CPT-4: G8553 12/27/2012 ROUTINE VENIPUNCTURE CPT-4: 85772 10/07/2012 PRESCRIP TRANSMIT VIA ERX SY CPT-4: G8553 09/21/2012 PRESCRIP TRANSMIT VIA ERX SY CPT-4: G8553 08/02/2012 TRIAMCINOLONE ACET INJ NOS CPT-4: J3301 06/27/2012 PRESCRIP TRANSMIT VIA ERX SY CPT-4: G8553 06/27/2012 TRIAMCINOLONE ACET INJ NOS CPT-4: J3301 06/06/2012 DRAIN/INJECT JOINT/BURSA CPT-4: 17200 06/06/2012 VITAMIN B12 INJECTION CPT-4: J3420 02/08/2012 URINALYSIS NONAUTO W/O SCOPE CPT-4: 53778 02/08/2012 ROUTINE VENIPUNCTURE CPT-4: 66987 02/01/2012 ROCEPHIN, PER 250 MG CPT-4: J0696 02/01/2012 PRESCRIP TRANSMIT VIA ERX SY CPT-4: G8553 02/01/2012 THER/PROPH/DIAG INJ SC/IM CPT-4: 36634 02/01/2012 ROUTINE VENIPUNCTURE CPT-4: 29444 01/22/2012 PRESCRIP TRANSMIT VIA ERX SY CPT-4: G8553 01/22/2012 TRIAMCINOLONE ACET INJ NOS CPT-4: J3301 10/19/2011 CA SCREEN;PELVIC/BREAST EXAM CPT-4: G0101 09/09/2011 KETOROLAC TROMETHAMINE INJ CPT-4: J1885 07/15/2011 THER/PROPH/DIAG INJ SC/IM CPT-4: 17271 07/15/2011 THER/PROPH/DIAG INJ SC/IM CPT-4: 53243 07/02/2011 KETOROLAC TROMETHAMINE INJ CPT-4: J1885 07/02/2011 KETOROLAC TROMETHAMINE INJ CPT-4: J1885 06/24/2011 THER/PROPH/DIAG INJ SC/IM CPT-4: 10667 06/24/2011 Vital Signs Date Vital 09/28/2017 Blood Pressure 1: 144/76 Code : 8480-6 Heart Rate 1: 67 bpm SpO2: 96% 09/09/2017 Blood Pressure 1: 158/96 Code : 8480-6 Heart Rate 1: 65 bpm SpO2: 96% 09/03/2017 Blood Pressure 1: 162/76 Code : 8480-6 BMI: 23.6 Code : 55611-3 Height: 5'5" Weight: 142 lbs 05/27/2017 Blood Pressure 1: 158/78 Code : 8480-6 BMI: 23.1 Code : 18291-3 Heart Rate 1 : 57 bpm Height: 5'5" SpO2: 99% Weight: 139 lbs 04/27/2017 Blood Pressure 1: 142/78 Code : 8480-6 Blood Pressure 1: 136/72 Code: 8480-6 BMI: 24.0 Code: 34462-4 Heart Rate 1: 69 bpm Height: 5'5" SpO2: 94% Weight: 144 lbs 03/09/2017 Blood Pressure 1: 138/80 Code : 8480-6 BMI: 23.5 Code : 74204-6 Heart Rate 1 : 76 bpm Height: 5'5" Weight: 141 lbs 4 oz 02/22/2017 Blood Pressure 1: 144/88 Code : 8480-6 BMI: 24.0 Code : 05924-0 Heart Rate 1 : 100 bpm Height: 5'5" SpO2: 92% Weight: 144 lbs 12/28/2016 Blood Pressure 1: 144/84 Code : 8480-6 BMI: 24.3 Code : 16765-0 Heart Rate 1 : 96 bpm Height: 5'5" SpO2: 97% Waist Measure (cm): 76 cm Weight: 146 lbs 12/24/2016 Blood Pressure 1: 148/86 Code : 8480-6 BMI: 24.3 Code : 94814-2 Heart Rate 1 : 93 bpm Height: 5'5" SpO2: 96% Weight: 146 lbs 10/06/2016 Blood Pressure 1: 144/72 Code : 8480-6 Heart Rate 1: 71 bpm Height: 5'5" SpO2: 98% 10/01/2016 Blood Pressure 1: 136/82 Code : 8480-6 Heart Rate 1: 62 bpm Height: 5'5" SpO2: 97% Weight: 09/01/2016 Blood Pressure 1: 130/66 Code : 8480-6 BMI: 23.8 Code : 67404-6 Heart Rate 1 : 70 bpm Height: 5'5" SpO2: 98% Weight: 143 lbs 08/11/2016 Blood Pressure 1: 140/80 Code : 8480-6 BMI: 24.0 Code : 34109-9 Height: 5'5" Weight: 144 lbs 8 oz 07/01/2016 Blood Pressure 1: 136/74 Code : 8480-6 BMI: 24.3 Code : 97300-0 Heart Rate 1 : 76 bpm Height: 5'5" SpO2: 97% Weight: 146 lbs 04/23/2016 Blood Pressure 1: 130/78 Code : 8480-6 BMI: 25.1 Code : 26788-8 Heart Rate 1 : 70 bpm Height: 5'5" SpO2: 97% Weight: 151 lbs 03/03/2016 Blood Pressure 1: 138/62 Code : 8480-6 BMI: 25.6 Code : 16605-8 Heart Rate 1 : 62 bpm Height: 5'5" SpO2: 99% Weight: 154 lbs 01/14/2016 Blood Pressure 1: 162/72 Code : 8480-6 BMI: 26.6 Code : 77189-3 Heart Rate 1 : 82 bpm Height: 5'5" SpO2: 98% Weight: 160 lbs 12/03/2015 Blood Pressure 1: 130/62 Code : 8480-6 BMI: 25.8 Code : 35205-5 Heart Rate 1 : 72 bpm Height: 5'5" SpO2: 98% Weight: 155 lbs 10/10/2015 Blood Pressure 1: 118/80 Code : 8480-6 BMI: 25.6 Code : 95874-1 Heart Rate 1 : 70 bpm Height: 5'5" SpO2: 98% Weight: 154 lbs 08/28/2015 Blood Pressure 1: 152/80 Code : 8480-6 BMI: 27.7 Code : 48369-6 Heart Rate 1 : 75 bpm Height: 5'5" SpO2: 98% Weight: 166 lbs 8 oz 06/12/2015 Blood Pressure 1: 142/64 Code : 8480-6 BMI: 27.5 Code : 68616-1 Heart Rate 1 : 66 bpm Height: 5'5" SpO2: 96% Weight: 165 lbs 05/09/2015 Blood Pressure 1: 122/70 Code : 8480-6 BMI: 27.3 Code : 89807-5 Heart Rate 1 : 69 bpm Height: 5'5" SpO2: 97% Weight: 164 lbs 04/12/2015 Blood Pressure 1: 122/62 Code : 8480-6 BMI: 27.6 Code : 17024-4 Heart Rate 1 : 69 bpm Height: 5'5" SpO2: 98% Weight: 166 lbs 03/12/2015 Blood Pressure 1: 108/70 Code : 8480-6 BMI: 26.8 Code : 70020-1 Heart Rate 1 : 73 bpm Height: 5'5" SpO2: 96% Weight: 161 lbs 01/08/2015 Blood Pressure 1: 136/76 Code : 8480-6 BMI: 28.8 Code : 95138-6 Heart Rate 1 : 73 bpm Height: 5'5" SpO2: 95% Weight: 173 lbs 10/04/2014 Blood Pressure 1: 138/86 Code : 8480-6 BMI: 29.0 Code : 30229-1 Heart Rate 1 : 76 bpm Height: 5'5" Weight: 174 lbs 09/10/2014 Blood Pressure 1: 110/60 Code : 8480-6 BMI: 29.6 Code : 20133-2 Heart Rate 1 : 75 bpm Height: 5'5" Weight: 178 lbs 08/06/2014 Blood Pressure 1: 138/78 Code : 8480-6 BMI: 28.6 Code : 27630-3 Heart Rate 1 : 76 bpm Height: 5'5" Weight: 172 lbs 07/12/2014 Blood Pressure 1: 126/82 Code : 8480-6 BMI: 28.5 Code : 49094-8 Heart Rate 1 : 72 bpm Height: 5'5" Weight: 171 lbs 05/16/2014 Blood Pressure 1: 110/62 Code : 8480-6 BMI: 29.0 Code : 70324-1 Heart Rate 1 : 74 bpm Height: 5'5" SpO2: 97% Weight: 174 lbs 04/05/2014 Blood Pressure 1: 142/80 Code : 8480-6 BMI: 29.6 Code : 35996-6 Heart Rate 1 : 60 bpm Height: 5'5" Weight: 178 lbs 03/05/2014 Blood Pressure 1: 118/70 Code : 8480-6 BMI: 30.8 Code : 87502-8 Heart Rate 1 : 64 bpm Height: 5'5" Weight: 185 lbs 02/01/2014 Blood Pressure 1: 118/60 Code : 8480-6 BMI: 30.6 Code : 10422-0 Heart Rate 1 : 60 bpm Height: 5'5" Weight: 184 lbs 12/07/2013 Blood Pressure 1: 106/58 Code : 8480-6 Heart Rate 1: 64 bpm Weight: 185 lbs 09/25/2013 Blood Pressure 1: 120/68 Code : 8480-6 BMI: 30.6 Code : 02077-5 Heart Rate 1 : 72 bpm Height: 5'5" Weight: 184 lbs 09/04/2013 Blood Pressure 1: 124/80 Code : 8480-6 BMI: 30.3 Code : 68183-9 Height: 5'5" Weight: 182 lbs 05/18/2013 Blood Pressure 1: 126/70 Code : 8480-6 Weight: 174 lbs 04/18/2013 Blood Pressure 1: 120/68 Code : 8480-6 BMI: 28.6 Code : 47162-9 Heart Rate 1 : 64 bpm Height: 5'5" Weight: 172 lbs 03/16/2013 Blood Pressure 1: 134/60 Code : 8480-6 BMI: 28.6 Code : 89476-9 Heart Rate 1 : 96 bpm Height: 5'5" Weight: 172 lbs 01/26/2013 Blood Pressure 1: 128/82 Code : 8480-6 BMI: 29.6 Code : 88988-1 Heart Rate 1 : 72 bpm Height: 5'5" Weight: 178 lbs 12/27/2012 Blood Pressure 1: 148/82 Code : 8480-6 Heart Rate 1: 76 bpm Weight: 179 lbs 10/11/2012 Blood Pressure 1: 130/80 Code : 8480-6 BMI: 30.5 Code : 46050-9 Heart Rate 1 : 68 bpm Height: 5'5" Weight: 183 lbs 09/21/2012 Blood Pressure 1: 142/86 Code : 8480-6 Heart Rate 1: 80 bpm Weight: 182 lbs 08/02/2012 Blood Pressure 1: 144/72 Code : 8480-6 Heart Rate 1: 72 bpm Temperature: 36.8 (C) / 98.2 (F) Weight: 179 lbs 06/27/2012 Blood Pressure 1: 136/84 Code : 8480-6 BMI: 29.5 Code : 47165-2 Heart Rate 1 : 68 bpm Height: 5'5" Respiratory Rate: 16 bpm Weight: 177 lbs 06/06/2012 Blood Pressure 1: 144/80 Code : 8480-6 BMI: 30.6 Code : 41219-2 Heart Rate 1 : 76 bpm Height: [...] Code : 8480-6 BMI: 31.1 Code : 71136-7 Heart Rate 1 : 78 bpm Height: 5'5" Weight: 187 lbs 10/19/2011 Blood Pressure 1: 112/60 Code : 8480-6 Heart Rate 1: 80 bpm SpO2: 97% Temperature: 36.7 (C) / 98.0 (F) Weight: 188 lbs 09/09/2011 Blood Pressure 1: 130/70 Code : 8480-6 BMI: 31.1 Code : 91289-4 Heart Rate 1 : 66 bpm Height: 5'5" Weight: 187 lbs 08/13/2011 Blood Pressure 1: 116/70 Code : 8480-6 BMI: 30.6 Code : 96359-0 Heart Rate 1 : 64 bpm Height: 5'5" Respiratory Rate: 20 bpm Weight: 184 lbs 07/02/2011 Blood Pressure 1: 112/60 Code : 8480-6 BMI: 30.4 Code : 62539-5 Heart Rate 1 : 66 bpm Height: 5'5" Respiratory Rate: 12 bpm Weight: 182 lbs 8 oz 06/24/2011 Blood Pressure 1: 127/58 Code : 8480-6 Heart Rate 1: 84 bpm Weight: 04/16/2011 Blood Pressure 1: 120/78 Code : 8480-6 BMI: 30.8 Code : 89998-6 Heart Rate 1 : 76 bpm Height: [...] pain Location diffusely 04/18/2013 having epidurals [place], concerned because they didn't do mri of [...] weeks along. 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 PATIENT, LEVEL I Diagnosis: Essential (primary) hypertension[ICD10: I10] [facility] CPT-4: 19698 09/09/2017 ([id number]) 77813 EST. PATIENT, LEVEL III Diagnosis: Essential (primary) hypertension[ICD10: I10] Diagnosis: Chronic pain syndrome[ICD10: G89.4] [facility] CPT-4: 34199 09/03/2017 ([id number]) 27331 EST. PATIENT, LEVEL III Diagnosis: Other idiopathic peripheral autonomic neuropathy[ICD10: G90.09] Diagnosis: Vitamin B12 deficiency anemia due to intrinsic factor deficiency[ ICD10: D51.0] Diagnosis: Major depressive disorder, recurrent, moderate[ICD10: F33.1] Diagnosis: Encounter for immunization[ICD10: Z23] Rachael [facility]by MD, [facility] CPT-4: 02640 05/27/2017 ([id number]) 47066 EST. PATIENT, LEVEL IV Diagnosis: Vitamin B12 deficiency anemia, unspecified[ICD10: D51.9] Diagnosis: Essential (primary) hypertension[ICD10: I10] Diagnosis: Chronic pain syndrome[ICD10: G89.4] Diagnosis: Major depressive disorder, recurrent, moderate[ICD10: F33.1] Diagnosis: Vitamin B12 deficiency anemia due to intrinsic factor deficiency[ ICD10: D51.0] Rachael Newby MD, [facility] CPT-4: 54352 04/27/2017 [id number]) 17728 EST. PATIENT, LEVEL IV Diagnosis: Essential (primary) hypertension[ICD10: I10] Diagnosis: Other specified polyneuropathies[ICD10: G62.89] Rachael Newby MD, [facility] CPT-4: 96995 03/09/2017 ([id number]) 91917 EST. PATIENT, LEVEL III Diagnosis: Essential (primary) hypertension[ICD10: I10] Diagnosis: Chronic pain syndrome[ICD10: G89.4] Diagnosis: Dysuria[ICD10: R30.0] Diagnosis: Allergic rhinitis due to pollen[ICD10: J30.1] Rachael Newby MD, [facility] CPT-4: 59575 02/22/2017 [id number]) 68310 EST. PATIENT, LEVEL IV Diagnosis: Dysuria[ICD10: R30.0] Diagnosis: Urinary tract infection, site not specified[ICD10: N39.0] Diagnosis: Chronic pain syndrome[ICD10: G89.4] Rachael Newby MD, [facility] CPT-4: 35878 12/24/2016 [id number]) 73186 EST. PATIENT, LEVEL III Diagnosis: Allergic urticaria[ICD10: L50.0] Jillian Newby MD, [facility] CPT-4: 63131 10/06/2016 ([id number]) 05405 EST. PATIENT, LEVEL IV Diagnosis: Essential (primary) hypertension[ICD10: I10] Diagnosis: Generalized anxiety disorder[ICD10: F41.1] Rachael Newby MD [facility] CPT-4: 94681 10/01/2016 ([id number]) 31512 EST. PATIENT, LEVEL III Diagnosis: Displaced fracture of fifth metatarsal bone, left foot, initial encounter for closed fracture[ICD10: S92.352A] Diagnosis: Essential (primary) hypertension[ICD10: I10] Rachael Newby MD, [facility] CPT-4: 58180 09/01/2016 ([id number]) 09465 EST. PATIENT, LEVEL IV Diagnosis: Essential (primary) hypertension[ICD10: I10] Diagnosis: Chronic pain syndrome[ICD10: G89.4] Diagnosis: Vitamin B12 deficiency anemia, unspecified[ICD10: D51.9] Diagnosis: Vitamin D deficiency, unspecified[ICD10: E55.9] Diagnosis: Anemia, unspecified[ICD10: D64.9] Jillian Newby MD, [facility] CPT-4: 28430 08/11/2016 ([id number]) 43934 EST. PATIENT, LEVEL III Diagnosis: Chronic pain syndrome[ICD10: G89.4] Diagnosis: Rash and other nonspecific skin eruption[ICD10: R21] Rachael Newby MD, [facility] CPT-4: 57306 07/01/2016 ([id number]) 37819 EST. PATIENT, LEVEL IV Diagnosis: Vitamin B12 deficiency anemia, unspecified[ICD10: D51.9] Diagnosis: Anemia, unspecified[ICD10: D64.9] Diagnosis: Essential (primary) hypertension[ICD10: I10] Rachael Newby MD, [facility] CPT-4: 98658 04/23/2016 ([id number]) 59857 EST. PATIENT, LEVEL III Diagnosis: Essential (primary) hypertension[ICD10: I10] Diagnosis: Dysuria[ICD10: R30.0] Diagnosis: Chronic pain syndrome[ICD10: G89.4] Rachael Newby MD, [facility] CPT-4: 04043 03/03/2016 ([id number]) 42625 EST. PATIENT, LEVEL III Diagnosis: Generalized anxiety disorder[ICD10: F41.1] Diagnosis: Other specified dermatitis[ICD10: L30.8] Rachael Newby MD, [facility] CPT-4: 36456 01/14/2016 97691 EST. PATIENT, LEVEL III Diagnosis: Encounter for follow-up examination after completed treatment for conditions other than malignant neoplasm[ICD10: Z09] Diagnosis: Family history of malignant neoplasm of digestive organs[ICD10: Z80.0 ] Diagnosis: Vitamin B12 deficiency anemia, unspecified[ICD10: D51.9] Brina Newby MD, [facility] CPT-4: 92848 12/03/2015 ([id number]) 43227 EST. PATIENT, LEVEL IV Diagnosis: Essential (primary) hypertension[ICD10: I10] Diagnosis: Anemia, unspecified[ICD10: D64.9] Diagnosis: Mixed hyperlipidemia[ICD10: E78.2] Diagnosis: Gastro-esophageal reflux disease without esophagitis[ICD10: K21.9] Rachael Newby MD, [facility] CPT-4: 31283 10/10/2015 ([id number]) 31260 EST. PATIENT, LEVEL IV Diagnosis: Essential (primary) hypertension[ICD10: I10] Diagnosis: Generalized anxiety disorder[ICD10: F41.1] Diagnosis: Pain in right shoulder[ICD10: M25.511] Rachael Newby MD [facility] CPT-4: 91266 08/28/2015 ([id number]) 03555 EST. PATIENT, LEVEL IV Diagnosis: Other constipation[ICD10: K59.09] Diagnosis: Chronic pain syndrome[ICD10: G89.4] Diagnosis: Essential (primary) hypertension[ICD10: I10] Diagnosis: Frequency of micturition[ICD10: R35.0] Rachael Newby MD, [facility] CPT-4: 68550 06/12/2015 ([id number]) 16537 EST. PATIENT, LEVEL IV Diagnosis: OTHER CONSTIPATION[ICD9: 564.09] Diagnosis: ESSENTIAL HYPERTENSION[ICD9: 401.9] Rachael Newby MD [facility] CPT-4: 23865 05/09/2015 ([id number]) 95244 EST. PATIENT, LEVEL IV Diagnosis: Abdominal pain[ICD9: 789.00] Diagnosis: Vitamin D deficiency[ICD9: 268.9] Diagnosis: Vitamin B 12 deficiency[ICD9: 266.2] Diagnosis: Peripheral neuropathy[ICD9: 356.9] Diagnosis: ESSENTIAL HYPERTENSION[ICD9: 401.9] Diagnosis: Anxiety, generalized[ICD9: 300.02] Rachael Newby MD, [facility] CPT-4: 64681 04/12/2015 [id number]) 47913 EST. PATIENT, LEVEL IV Diagnosis: Hemorrhoids[ICD9: 455.6] Diagnosis: Blood in stool[ICD9: 578.1] Diagnosis: Weight loss[ICD9: 783.21] Diagnosis: ESSENTIAL HYPERTENSION[ICD9: 401.9] Jillian Newby MD, [facility] CPT-4: 27134 03/12/2015 [id number]) 15384 EST. PATIENT, LEVEL IV Diagnosis: Heart murmur[ICD9: 785.2] Diagnosis: Aortic regurgitation[ICD9: 424.1] Diagnosis: ESSENTIAL HYPERTENSION[ICD9: 401.9] Diagnosis: CHRONIC PAIN SYNDROME[ICD9: 338.4] Diagnosis: Fatigue[ICD9: 780.79] Diagnosis: MYALGIA AND MYOSITIS[ICD9: 729.1] Diagnosis: Vitamin B 12 deficiency[ICD9: 266.2] Rachael Newby MD, [facility] CPT-4: 27818 01/08/[id number]) 71890 EST. PATIENT, LEVEL III Diagnosis: ACUTE URI[ICD9: 465.9] Diagnosis: Vitamin B 12 deficiency[ICD9: 266.2] Rachael Newby MD, [facility] CPT-4: 56994 10/04/2014 [id number]) 53020 EST. PATIENT, LEVEL IV Diagnosis: ESSENTIAL HYPERTENSION[ICD9: 401.9] Diagnosis: Vitamin B 12 deficiency[ICD9: 266.2] Diagnosis: Esophageal reflux[ICD9: 530.81] Rachael Newby MD, [facility] CPT- 4: 16682 09/10/[id number]) 52370 EST. PATIENT, LEVEL III Diagnosis: ESSENTIAL HYPERTENSION[ICD9: 401.9] Diagnosis: ACUTE URI[ICD9: 465.9] Rachael Newby MD, [facility] CPT-4: 30256 08/06/2014 ([id number]) 81554 EST. PATIENT, LEVEL III Diagnosis: Vitamin B 12 deficiency[ICD9: 266.2] Diagnosis: CHRONIC PAIN SYNDROME[ICD9: 338.4] Diagnosis: ESSENTIAL HYPERTENSION[ICD9: 401.9] Rachael Newby MD, [facility] CPT-4: 76138 07/12/2014 ([id number]) 63532 EST. PATIENT, LEVEL IV Diagnosis: Anxiety, generalized[ICD9: 300.02] Diagnosis: Insomnia[ICD9: 780.52] Diagnosis: VACCIN FOR INFLUENZA[ICD10: Z23] Diagnosis: Vitamin B 12 deficiency[ICD9: 266.2] Rachael Newby MD, [facility] CPT-4: 73140 05/16/2014 ([id number]) 93242 EST. PATIENT, LEVEL III Diagnosis: ESSENTIAL HYPERTENSION[ICD9: 401.9] Diagnosis: Vitamin B 12 deficiency[ICD9: 266.2] Diagnosis: Insomnia[ICD9: 780.52] Rachael Newby MD, [facility] CPT-4: 13771 04/05/2014 ([id number]) 63082 EST. PATIENT, LEVEL IV Diagnosis: ESSENTIAL HYPERTENSION[ICD9: 401.9] Diagnosis: DEPRESSIVE DISORDER NEC[ICD9: 311] Diagnosis: MYALGIA AND MYOSITIS[ICD9: 729.1] Rachael Newby MD, [facility] CPT-4: 34666 03/05/2014 ([id number]) 21621 EST. PATIENT, LEVEL III Diagnosis: Dyshidrotic eczema[ICD9: 705.81] Diagnosis: B-COMPLEX DEFIC NEC[ICD9: 266.2] Jillian Newby MD, [facility] CPT-4: 40754 02/01/2014 ([id number]) 65248 EST. PATIENT, LEVEL III Diagnosis: Rash[ICD9: 782.1] Diagnosis: ESSENTIAL HYPERTENSION[SNOMED: 74806763] Jillian Newby MD, [facility] CPT-4: 18033 12/07/2013 ([id number]) 84139 EST. PATIENT, LEVEL IV Diagnosis: ESSENTIAL HYPERTENSION[SNOMED: 35927821] Diagnosis: MYALGIA AND MYOSITIS[ICD9: 729.1] Diagnosis: DEPRESSIVE DISORDER NEC[ICD9: 311] Diagnosis: Dietary counseling[ICD9: V65.3] Rachael Newby MD [facility] CPT- 4: 95717 09/25/2013 ([id number]) 47735 EST. PATIENT, LEVEL IV Diagnosis: ESSENTIAL HYPERTENSION[SNOMED: 68184587] Diagnosis: DEPRESSIVE DISORDER NEC[ICD9: 311] Diagnosis: Fatigue[ICD9: 780.79] Rachael Newby MD [facility] CPT-4: 45949 09/04/2013 ([id number]) 13134 EST. PATIENT, LEVEL III Diagnosis: Back pain[ICD9: 724.5] Rachael Newby MD [facility] CPT-4: 80775 05/18/2013 ([id number]) 86260 EST. PATIENT, LEVEL III Diagnosis: ESSENTIAL HYPERTENSION[SNOMED: 28976903] Diagnosis: Sacroiliitis[ICD9: 720.2] Diagnosis: Sleep apnea[ICD9: 780.57] Rachael Newby MD, [facility] CPT-4: 25431 04/18/2013 ([id number]) 21418 EST. PATIENT, LEVEL IV Diagnosis: ESSENTIAL HYPERTENSION[SNOMED: 65589475] Diagnosis: Fatigue[ICD9: 780.79] Diagnosis: Snoring disorder[ICD9: 786.09] Rachael Newby MD [facility] CPT- 4: 46548 03/16/2013 ([id number]) 35932 EST. PATIENT, LEVEL III Diagnosis: CELLULITIS OF NECK[ICD9: 682.1] Diagnosis: CELLULITIS OF TRUNK[ICD9: 682.2] Rachael Newby MD, [facility] CPT-4: 10392 01/26/2013 ([id number]) 21458 EST. PATIENT, LEVEL III Diagnosis: ESSENTIAL HYPERTENSION[SNOMED: 56423389] Diagnosis: CELLULITIS, FINGER[ICD9: 681.00] Diagnosis: ENCNTR LONG-RX USE NEC[ICD9: V58.69] Diagnosis: Vitamin B 12 deficiency[ICD9: 266.2] Diagnosis: JOINT PAIN-HAND[ICD9: 719.44] Jillian Newby MD, [facility] CPT-4: 72019 12/27/2012 ([id number]) 73352 EST. PATIENT, LEVEL IV Diagnosis: ESSENTIAL HYPERTENSION[SNOMED: 71099823] Diagnosis: HYPERLIPIDEMIA[ICD9: 272.4] Diagnosis: MYALGIA AND MYOSITIS[ICD9: 729.1] Rachael Newby MD [facility] CPT-4: 36699 10/11/2012 ([id number]) 49739 EST. PATIENT, LEVEL IV Diagnosis: ESSENTIAL HYPERTENSION[SNOMED: 51379762] Diagnosis: Anxiety, generalized[ICD9: 300.02] Diagnosis: Fatigue[ICD9: 780.79] Diagnosis: Depression[ICD9: 311] Rachael Newby MD [facility] CPT-4: 98071 09/21/2012 ([id number]) 58403 EST. PATIENT, LEVEL III Diagnosis: Dental abscess[ICD9: 522.5] Diagnosis: ACUTE MAXILLARY SINUSITIS[ICD9: 461.0] Rachael Newby MD [facility] CPT-4: 82884 08/02/2012 ([id number]) 11032 EST. PATIENT, LEVEL III Diagnosis: SACROILIITIS NEC[ICD9: 720.2] Diagnosis: CHRONIC PAIN SYNDROME[ICD9: 338.4] Rachael Newby MD [facility] CPT-4: 60034 06/27/2012 ([id number]) 69001 EST. PATIENT, LEVEL IV Diagnosis: ESSENTIAL HYPERTENSION[SNOMED: 61077482] Diagnosis: Tennis elbow[ICD9: 726.32] Diagnosis: Neck pain on right side[ICD9: 723.1] Rachael Newby MD [facility] CPT-4: 69427 06/06/2012 ([id number]) 80543 EST. PATIENT, LEVEL IV Diagnosis: Esophageal reflux[ICD9: 530.81] Diagnosis: Cervicalgia[ICD9: 723.1] Diagnosis: Medial epicondylitis[ICD9: 726.31] Jillian Newby MD, [facility] CPT-4: 96695 05/16/2012 ([id number]) 35391 EST. PATIENT, LEVEL IV Diagnosis: EDEMA[ICD9: 782.3] Diagnosis: Chronic pain disorder[ICD9: 338.4] Diagnosis: DEPRESSIVE DISORDER NEC[ICD9: 311] Diagnosis: MALAISE AND FATIGUE[ICD9: 780.79] Rachael Newby MD, [facility] CPT-4: 76247 02/29/2012 ([id number]) 95254 EST. PATIENT, LEVEL IV Diagnosis: ANEMIA[ICD9: 285.9] Diagnosis: Fatigue[ICD9: 780.79] Rachael Newby MD, [facility] CPT-4: 29629 02/08/2012 ([id number]) 75230 EST. PATIENT, LEVEL IV Diagnosis: Acute renal failure[ICD9: 584.9] Diagnosis: Fatigue[ICD9: 780.79] Diagnosis: Myalgia[ICD9: 729.1] Rachael Newby MD, [facility] CPT-4: 51087 02/01/2012 ([id number]) 30622 EST. PATIENT, LEVEL III Diagnosis: Oral aphthae[ICD9: 528.2] Diagnosis: Fatigue[ICD9: 780.79] Diagnosis: History of iron deficiency anemia[ICD9: V12.3] Diagnosis: HYPERLIPIDEMIA[ICD9: 272.4] Diagnosis: ESSENTIAL HYPERTENSION[SNOMED: 92028365] Jillian Newby MD, [facility] CPT-4: 58525 01/22/2012 ([id number]) 98722 EST. PATIENT, LEVEL III Diagnosis: ACUTE SINUSITIS[ICD9: 461.9] Jillian Newby MD, [facility] CPT-4: 82269 10/19/2011 ([id number]) 99102 EST. PATIENT, LEVEL III Diagnosis: ACUTE SINUSITIS[ICD9: 461.9] Diagnosis: JOINT PAIN-L/LEG[ICD9: 719.46] Rachael Newby MD, [facility] CPT- 4: 97802 08/13/2011 44423 EST. PATIENT, LEVEL III Diagnosis: JOINT PAIN-L/LEG[ICD9: 719.46] Diagnosis: Primary localized osteoarthrosis of the knee[ICD9: 715.16] Rachael Newby MD , [facility] CPT-4: 26296 07/02/2011 69549 EST. PATIENT, LEVEL III Diagnosis: Knee pain, left[ICD9: 719.46] Diagnosis: Fall from slipping[ICD9: E885.9] [facility] CPT-4: 64233 06/24/2011 79150 EST. PATIENT, LEVEL III Diagnosis: Aphthous ulcer[ICD9: 528.2] [facility] CPT- 4: 73224 04/16/2011 Plan of Care Planned Activity Notes Codes Status Date Patient Education: Patient Medication Summary Completed 09/28/2017 [...] refilled hydrocodone. 09/03/2017 Appointment: [facility]el: [facility] ([facility] min) Moderate 09/03/2017 Patient Education: Patient Medication Summary Completed 09/03/2017 Appointment: Rachael Newby WPtel: [facility] (15 min) Moderate 08/26/2017 Appointment: Rachael Newby WPtel: [facility] (15 min) Moderate 07/14/2017 Visit Plan: Peripheral [...] current medications. 05/27/2017 Appointment: [phone] (15 min) Moderate 05/27/2017 Patient Education: Patient [...] Injection 04/27/2017 Appointment: [phone] [facility] (15 min) Moderate 04/27/2017 Patient [...] Completed 03/09/2017 Appointment: Rachael Newby WPtel: [phone] [facility] (15 min) Moderate 02/25/2017 Visit Plan: Hypertension [...] today 02/22/2017 Appointment: Rachael Newby WPtel: [phone] [facility] (15 min) Moderate 02/22/2017 Patient Education: Patient [...] surrogate. 12/28/2016 Appointment: Brina Cazares WPtel: [phone] [facility] [facility] - Annual Wellness Visit 12/28/2016 Patient Education: [...] are finished. 12/24/2016 Appointment: Rachael Newby WPtel: [phone] [facility] (15 min) Moderate 12/24/2016 Patient Education: Patient Medication Summary Completed 12/24/2016 Appointment: Brina Cazares WPtel: [facility]4 [facility] [place] [address] - Annual Wellness Visit 11/26/2016 Appointment: Injection 10/14/2016 Patient Education: Patient Medication Summary Completed 10/14/2016 Visit Plan: Hives-short course of prednisone-start claritin and pepcid as directed-call if symptoms do not resolve or if any worse. Patient verbalized understanding of plan. 10/06/2016 Appointment: Jillian Dalal WPtel: [facility]6 [phone] (30 min) Complex 10/06/2016 Patient Education: Patient [...] current medications. 10/01/2016 Appointment: Rachael Newby WPtel: [facility]7 [facility] (15 min) Moderate 10/01/2016 Patient [...] home. 09/01/2016 Appointment: Rachael Newby WPtel: [phone] [facility] (15 min) Moderate 09/01/2016 Patient Education: Patient Medication Summary Completed 09/01/2016 Care Plan: Referral Order SNOMED-CT : 937036402 Pending 09/01/2016 Visit Plan: Hypertension - well [...] Dr Palacio 08/11/2016 Appointment: Jillian Dalal WPtel: [phone] [place] (15 min) Moderate 08/11/2016 Patient Education: Patient Medication Summary Completed 08/11/2016 Care Plan: Referral Order SNOMED-CT : 137083122 Pending 08/11/2016 Visit Plan: Chronic Pain Syndrome - pt has chronic pain - has been maintained on current medications, has not sought out other medications , only uses PRN pain medications as directed, and understands the consequences of over-medication. RX for Efudex to be used on hands until lesions healed 07/01/2016 Appointment: Rachael Newby WPtel: [phone] [facility] [place] (15 min) Moderate 07/01/2016 Patient Education: [...] iron orally. 04/23/2016 Appointment: [phone] [facility] (15 min) Moderate 04/23/2016 Patient Education: Patient [...] Completed 03/03/2016 Appointment: [phone] [facility] (15 min) Moderate 02/17/2016 Visit Plan: Rash - Rx for betamethasone for the rash on left lateral lower leg and right hand on dorsum over digits #3/4. Anxiety - uncontrolled - RX for buspar. 01/14/2016 Patient Education: Patient Medication Summary Completed 01/14/2016 Appointment: Rachael Newby WPtel: [facility] [place] (15 min) Moderate 01/13/2016 Visit Plan: [...] testing. 12/03/2015 Appointment: Jillian Dalal WPtel: [phone] [phone] (15 min) Moderate 12/03/2015 Patient Education: Patient [...] of over-medication. 10/10/2015 Appointment: [facility]Ptel[phone] (15 min) Moderate 10/10/2015 Patient Education: Patient [...] on her shoulder from Dr. Paz in [place]. 08/28/2015 Patient Education: Patient Medication Summary Completed 08/28/2015 Patient Education: Hypertension Completed 08/28/2015 Appointment: Rachael Newby WPtel: [phone] [facility] (15 min) Moderate 08/07/2015 Visit [...] pain medication. 06/12/2015 Appointment: [facility] New[phone] [facility] (15 min) Moderate 06/12/2015 Patient Education: Patient [...] this regimen. 05/09/2015 Appointment: Rachael Newby WPtel: [facility] (15 min) Moderate 05/09/2015 Patient [...] ABD & PELV 1/> REGNS LOINC : 56209-4 Ordered 04/12/2015 Visit Plan: Hypertension - well controlled - continue with current medications, continue with no added salt diet. Pt has been encouraged to exercise daily. The pt has been advised to call the office if there are any acute concerns about change in blood pressure readings at home. Black stool- check stools Hemorrhoid-RX for anusol suppositories and instructed on use Weight kenj-xjbhfrxmugyaf-uddxx stools and labs-refer to Dr Riddle if [...] ESR, CRP. 01/08/2015 Appointment: [phone] Follow up 01/08/2015 Patient Education: Patient Medication Summary Completed 01/08/2015 Patient Education: Hypertension Completed 01/08/2015 Care Plan: Referral Order SNOMED-CT : 430952836 Ordered 01/08/2015 Appointment: Injection 11/28/2014 Patient Education: Patient Medication Summary Completed 11/28/2014 Patient Education: Patient Medication Summary Completed 10/15/2014 Care Plan: SCREENINGMAMMOGRAPHYDIGITAL LOINC : 29993-7 Ordered 10/15/2014 Visit Plan: URI - Pt advised to increase fluids, vitamin C. Discussed natural and expected course of this diagnosis and need to alert me if symptoms do not follow expected course, or if any worse. RX sent to patient' s pharmacy. 10/04/2014 Appointment: Rachael Newby WPtel: [phone] [facility] Sick 10/04/2014 Patient Education: Patient Medication Summary [...] shot today 09/10/2014 Appointment: Rachael Newby WPtel: [phone] [facility] Follow up 09/10/2014 Patient Education: Patient Medication [...] given today 08/06/2014 Appointment: Rachael Newby WPtel: [phone] [facility] called and confirmed appt Follow up 08/06/2014 [...] , and understands the consequences of over-medication. [facility]-febwd follow up with cardiology-patient wants to wait until after holidays-does not want to go back to Dr Wong-refer to Dr Tenorio-patient is going to call us when she gets home. 07/12/2014 Appointment: Sick 07/12/2014 Patient Education: Patient Medication Summary Completed 07/12/2014 Patient Education: Hypertension Completed 07/12/2014 Patient Education: Patient Medication Summary Completed 06/28/2014 Appointment: [facility]Ptel: [phone] [facility] [place] Injection 06/14/2014 Patient Education: Patient Medication Summary Completed 06/14/2014 Appointment: [facility]achael Newby [facility]Ptel: [phone] [facility] [place] Injection 05/31/2014 Patient Education: Patient Medication Summary Completed 05/31/2014 Appointment: [facility] New[facility]Ptel: [phone] [facility] [place] Injection 05/23/2014 Visit Plan: [...] time insomnia. 05/16/2014 Appointment: [facility] Newby [facility]Ptel: [phone] [facility] [place] Follow up 05/16/2014 Patient Education: Patient [...] myalgias improve. 03/05/2014 Appointment: Rachael Newby WPtel: [facility]5 [facility] Follow up 03/05/2014 Patient Education: Patient Medication Summary Completed 03/05/2014 Patient Education: Hypertension Completed 03/05/2014 Visit Plan: Dyshidrotic eczema-RX for betamethasone cream- discussed natural and expected course of this diagnosis and to alert me if symptoms do not follow expected course, or if any worse. RX sent to patient's pharmacy. Patient verbalized understanding of plan. 02/01/2014 Appointment: Jillian Dalal WPtel: [phone] Follow up 02/01/2014 Patient Education: Patient Medication Summary Completed 02/01/2014 Appointment: Jillian Dalal WPtel: [phone] [phone] [place] Injection 12/29/2013 Patient Education: Patient Medication Summary Completed 12/29/2013 Appointment: [facility] New[facility]Ptel: [phone] [facility] [place] Injection 12/27/2013 Visit Plan: Rash-RX sent to patient's pharmacy-keep hands clean and dry-call next week with update on symptoms HTN-well controlled-CAD- diastolic dysfunction-no recent cardiology follow up and significant heart murmur-recommend appointment with Dr Wong. 12/07/2013 Appointment: Jillian Dalal WPtel: [phone] [phone] [place] rash 12/07/2013 Patient Education: Patient Medication [...] muscle aches. 09/25/2013 Appointment: [facility] Newby [facility]Ptel: [phone] [facility] Follow up 09/25/2013 Patient Education: Patient Medication Summary Completed 09/25/2013 Patient Education: .Amazing charts Diabetic meal planning guide Completed 09/25 Patient Education: Hypertension Completed 09/25/2013 Appointment: [facility] Newby WPtel: [phone] [place] Lab Draw 09/05/2013 Visit Plan: Hypertension - [...] vitamin d 09/04/2013 Appointment: Rachael Newby WPtel: [address] [place], [place] [phone] [place] Follow up 09/04/2013 Patient Education: Patient Medication Summary Completed 09/04/2013 Patient Education: Hypertension Completed 09/04/2013 Appointment: Rachael Newby WPtel: [address] [place] [phone] [place] Follow up 08/29/2013 Visit Plan: Sacroilitis - shots in SI joints today - back exercises discussed with the patient, pt to continue with antiinflammatories. Pt is to call if the symptoms do not improve or if they worsen. 05/18/2013 Appointment: Rachael Newby WPtel: [address] [place], [place] [phone] [place] Follow up 05/18/2013 Patient Education: Patient [...] acute pain-recommend f/u with Dr Marin at [address] 04/18/2013 Appointment: Jillian Dalal WPtel: [address] [place], [place] [phone] [place] Follow up 04/18/2013 Patient Education: Patient Medication Summary Completed 04/18/2013 Patient Education: Hypertension Completed 04/18/2013 Appointment: Rachael Newby WPtel: [facility]9 [facility] [place] Follow up 04/13/2013 Visit Plan: Hypertension - [...] SLEEP STUDY. 03/16/2013 Appointment: Rachael Newby WPtel: [address] [place] [address] Follow up 03/16/2013 Patient Education: Patient Medication Summary Completed 03/16/2013 Patient Education: Hypertension Completed 03/16/2013 Appointment: Rachael Newby WPtel: [address] [place] [address] Follow up 02/28/2013 Visit Plan: Cellulitis - continue with oral antibiotics as previously directed, return to clinic as previously directed, call for acute change in symptoms, worsening redness, warmth, discharge. 01/26/2013 Appointment: Rachael Newby WPtel: [address] [place] [phone] Other 01/26/2013 Patient Education: Patient Medication Summary [...] concerns. 12/27/2012 Appointment: Jillian Dalal WPtel: [phone] [phone] [place] rash 12/27/2012 Patient Education: Patient Medication [...] not improve. 10/11/2012 Appointment: Rachael Newby WPtel: [facility] [place] Follow up 10/11/2012 Patient Education: Patient Medication Summary Completed 10/11/2012 Patient Education: Hypertension Completed 10/11/2012 Appointment: Jillian Dalal WPtel: [phone] [phone] Lab Draw 10/07/2012 Patient Education: Patient Medication Summary Completed 10/07/2012 Patient Education: Hypertension Completed 10/07/2012 Appointment: [facility]Ptel: [phone] Lab [facility] 09/26/2012 Visit Plan: Hypertension - [...] - tomorrow 09/21/2012 Appointment: Rachael Newby WPtel: [facility] [place] [phone] Follow up 09/21/2012 Patient Education: Patient Medication Summary Completed 09/21/2012 Patient Education: Hypertension Completed 09/21/2012 Visit Plan: Dental abcess- Sinusitis- pt to start on clindamycin and flagyl, use sinus rinse, and see dentist [facility] 08/02/2012 Appointment: Rachael Newby WPtel: [address] [place] [phone] [facility] 08/02/2012 Patient Education: Patient Medication Summary Completed 08/02/2012 Visit Plan: Sacroilitis - Pt is unable to use oral antiinflammatories of the NSAID variety due to compromised renal function, therefore, until she is able to receive injections from the specialist at [facility] [address] [place] [address], she will be on a steroid taper. Back and leg pain - steroid shot today - pt to see specialist for epidural and SI joint injections [facility] 06/27/2012 Appointment: Rachael Newby WPtel: [phone] [facility] Follow up 06/27/2012 Patient Education: Patient Medication [...] the right. 06/06/2012 Appointment: Rachael Newby WPtel: [phone] [facility] [place] Follow up 06/06/2012 Patient [...] of plan. 05/16/2012 Appointment: Jillian Dalal WPtel: [id number] [place] [address] Other 05/16/2012 Patient Education: Patient Medication Summary Completed 05/16/2012 Visit Plan: Edema has improved - continue with current treatment, low sodium diet, call for any acute changes in the symptoms. Pt is planning a trip to [place] soon and I have encouraged her to [...] pressure medication. 02/29/2012 Appointment: Rachael Newby WPtel: [phone] [facility] [place] Follow up 02/29/2012 Patient Education: Patient [...] supplements daily. 02/08/2012 Appointment: Rachael Newby WPtel: [facility]6 [facility] Follow up 02/08/2012 Patient Education: [...] renal function. 02/01/2012 Appointment: Rachael Newby WPtel: [facility]5 [facility] Other 02/01/2012 Patient Education: Patient Medication Summary [...] home. 01/22/2012 [facility]ment[phone] [place] Other 01/22/2012 Patient Education: Patient Medication [...] plan.. 09/09/2011 [phone] [facility] 09/09/2011 Patient Education: Patient Medication Summary Completed 09/09/2011 App[facility]ment: [phone] [place] Pap Only 09/03/2011 Visit Plan: Sinusitis [...] for removal. 07/02/2011 Appointment: Rachael Newby WPtel: [facility] [place] Other 07/02/2011 Patient Education: Patient Medication Summary [...] DISCUSSED THE CASE WITH THE NURSE PRACTICIONER. SHOSHANA HAS BEEN INSTRUCTED TO CALL THE OFFICE [...] worsen. 06/24/2011 Appointment: [facility] Dalal [phone] [place] Other 06/24/2011 Patient Education: Patient Medication Summary Completed 06/24/2011 Visit Plan: Apthous ulcer-take the acyclovir as directed. QID x 7 days, then bid x 1 month. Pt advised to stop eating acidic foods, stop drinking pop, start on a multivitamin. 04/16/2011 App[facility]ment: [phone] [facility] 04/16/2011 Patient Education: Patient Medication Summary Completed 04/16/2011 Referral: Yandel Hernandez Referral Appointment Requested Referral[phone] [facility] [place] Referral Completed Instructions Comment hold LIPITOR x [...] directed, and understands the consequences of over-medication. [id number]-[id number] follow up with cardiology-patient wants to wait [...] anusol suppositories and instructed on use Weight wvds-agtlcdthzzgqd-pjemt stools and labs-refer to Dr Riddle if indicated Cosmo Paz MD - Orthopedic surgeon in [facility] - consider this for possible surgery [...] on her shoulder from Dr. Paz in [place]. . Paronychia - continue with oral antibiotics [...] the specialist [facility], she will be on a steroid taper. [...] next week with update on symptoms HTN-well hbggfqjxar-SDD-gqyxkrnao dysfunction-no recent cardiology follow up and significant [...] change in blood pressure readings at home. Zrlveso-kkitnvsropwz-orwqyloe xanax at 2pm-take a full tab to [...] DISCUSSED THE CASE WITH THE NURSE PRACTICIONER. SHOSHANA HAS BEEN INSTRUCTED TO CALL THE OFFICE [...] symptoms. Pt is planning a trip to [place] soon and I have encouraged her to [...]
--- OUTSIDE RECORDS SUMMARY | 2018-07-05 08:14 | XMS REPORT | CCD ---
Author Author [facility]ael Newby Organization [facility] Address [address] [place] [address] Phone Care Team Providers Care Certified Prosthetist/Orthotist Name Role Phone Rachael Newby PP Unavailable CCM Unavailable Summary Purpose Interface Exchange Insurance Providers Payer name Policy type / Coverage type Covered libertarian ID Effective Begin Date Effective End Date WPS Medicare Part B Medicare Part B [id number] 2013 Unknown [facility] Medicare Part B [id number] 2013 Unknown Family history Runs in the [...] of children Unknown 4 1 daughter in [place], 3 sons live in 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 [employer] 04/16/[address]: 7660999 Former smoker Quit in 1986 - previously smoked 1 pack per week x 25 years 04/16/[address]: 075656 Currently drinks alcohol 1 glass of wine [...] Instructions isosorbide mononitrate 10 mg tablet RxNorm: 348526 1 Tablet(s) PO BID 09/10/2017 04/07/2018 Active pantoprazole 40 mg tablet,delayed release RxNorm: 711197 1 Tablet(s) PO BID x 1 wk then daily thereafter 09/03/2017 No Stop Date Active isosorbide mononitrate 10 mg tablet RxNorm: 065026 1 Tablet(s) PO daily 09/03/2017 09/09/2017 Inactive hydrocodone 10 mg-acetaminophen 325 mg tablet RxNorm: 946505 1 Tablet(s) PO Q4-6H as needed pain 07/09/2017 08/01/2017 Inactive alprazolam 1 mg tablet RxNorm: 577369 1 Tablet(s) PO Q8 PRN as needed TAKE 1 TABLET THREE TIMES DAILY NEEDED FOR ANXIETY. 07/01/2017 08/29/2017 Inactive omeprazole 20 mg tablet,delayed release RxNorm: 813104 1 Tablet(s) PO BID 07/01/2017 08/29/2017 Inactive omeprazole 20 mg tablet,delayed release RxNorm: 048552 1 Tablet(s) PO BID Tablet(s ) 1 Tablet(s) PO BID 06/30/20172016 Inactive hydrocodone 10 mg-acetaminophen 325 mg tablet RxNorm: 911802 1 Tablet(s) PO Q4-6H as needed pain 06/24/2017 07/08/2017 Inactive bupropion HCl XL 300 mg 24 hr tablet, extended release RxNorm: 702825 1 Tablet(s) PO daily 05/27/2017 08/19/2018 Active alprazolam 1 mg tablet RxNorm: 735768 1 Tablet(s) PO Q8 PRN as needed TAKE 1 TABLET THREE TIMES DAILY NEEDED FOR ANXIETY. 05/27/2017 06/30/2017 Inactive hydrocodone 10 mg-acetaminophen 325 mg tablet RxNorm: 913595 1 Tablet(s) PO Q4-6H as needed pain 05/27/2017 06/19/2017 Inactive cyanocobalamin (vit B-12) 1,000 mcg/mL injection solution RxNorm: 686533 1 Milliliter(s) Inj 05/27/2017 05/27/2017 Inactive cyanocobalamin (vit B-12) 1,000 mcg/mL injection solution RxNorm: 767908 1 Milliliter(s) Inj 04/27/2017 04/27/2017 Inactive hydrocodone 10 mg-acetaminophen 325 mg tablet RxNorm: 979450 1 Tablet(s) PO Q4-6H as needed pain 04/27/2017 05/26/2017 Inactive Cymbalta 60 mg capsule,delayed release RxNorm: 924695 1 Capsule(s) PO daily 04/27/2017 04/27/2017 Inactive cyanocobalamin (vit B-12) 1,000 mcg/mL injection solution RxNorm: 839737 1 Milliliter(s) Inj 04/09/2017 04/09/2017 Inactive cyanocobalamin (vit B-12) 1,000 mcg/mL injection solution RxNorm: 843009 Milliliter(s) Inj 03/23/2017 03/23/2017 Inactive alprazolam 1 mg tablet RxNorm: 148161 1 Tablet(s) PO Q8 PRN as needed TAKE 1 TABLET THREE TIMES DAILY NEEDED FOR ANXIETY. 03/17/2017 05/15/2017 Inactive cyanocobalamin (vit B-12) 1,000 mcg/mL injection solution RxNorm: 011575 Milliliter(s) Inj 03/11/2017 03/11/2017 Inactive metoprolol tartrate 50 mg tablet RxNorm: 215385 1 Tablet(s) PO BID 03/09/2017 03/03/2018 Active this replaces the 25mg RX for metoprolol tartate Metanx (algal oil) 3 mg-35 mg-2 mg-90.314 mg capsule RxNorm: 1 Capsule(s) PO BID 03/09/2017 05/17/2017 Inactive gabapentin 100 mg capsule RxNorm: 872451 2 Capsule(s) PO TID 05/31/2017 Inactive Zofran 4 mg tablet RxNorm: 326533 1 Tablet(s) PO TID as needed 02/26/2017 No Stop Date Active Kenalog 40 mg/mL suspension for injection RxNorm: 0196610 1 Milliliter(s) Inj 02/22/2017 02/22/2017 Inactive metoprolol tartrate 25 mg tablet RxNorm: 222013 1 Tablet(s) PO BID 02/22/2017 03/08/2017 Inactive 07/23/2016 10:27:52 AM trimethoprim 100 mg tablet RxNorm: 524819 1 Tablet(s) PO daily 01/02/2017 12/24/2016 Inactive Lipitor 40 mg tablet RxNorm: 309796 TAKE ONE TABLET BY MOUTH AT BEDTIME 12/25/2016 12/19/2017 Active Generic For:LIPITOR 40MG TAB refill request trimethoprim 100 mg tablet RxNorm: 722514 1 Tablet(s) PO daily 12/25/2016 06/22/2017 Inactive bupropion HCl XL 300 mg 24 hr tablet, extended release RxNorm: 762380 1 Tablet(s) PO daily 12/25/2016 04/26/2017 Inactive Bactrim DS 800 mg-160 mg tablet RxNorm: 570352 1 Tablet(s) PO BID 12/24/2016 01/02/2017 Inactive hydrocodone 10 mg-acetaminophen 325 mg tablet RxNorm: 999829 1 Tablet(s) PO Q4-6H as needed pain 12/24/2016 01/22/2017 Inactive bupropion HCl XL 300 mg 24 hr tablet, extended release RxNorm: 983394 1 Tablet(s) PO daily 12/24/2016 12/24/2016 Inactive omeprazole 20 mg tablet,delayed release RxNorm: 105435 Tablet(s) 1 Tablet(s) PO BID 11/27/2016 05/25/2017 Inactive hydrocodone 10 mg-acetaminophen 325 mg tablet RxNorm: 009011 1 Tablet(s) PO Q4-6H as needed pain 11/18/2016 12/11/2016 Inactive alprazolam 1 mg tablet RxNorm: 077910 1 Tablet(s) PO Q8 PRN as needed TAKE 1 TABLET THREE TIMES DAILY NEEDED FOR ANXIETY. 11/18/2016 02/15/2017 Inactive hydrocodone 10 mg-acetaminophen 325 mg tablet RxNorm: 337772 1 Tablet(s) PO Q4-6H as needed pain 10/19/2016 11/11/2016 Inactive cyanocobalamin (vit B-12) 1,000 mcg/mL injection solution RxNorm: 521307 1 Milliliter(s) Inj 10/14/2016 10/14/2016 Inactive prednisone 20 mg tablet RxNorm: 007496 3 Tablet(s) PO daily 10/08/2016 Inactive Metanx (algal oil) 3 mg-35 mg-2 mg-90.314 mg capsule RxNorm: 1 Capsule(s) PO BID 10/01/2016 01/28/2017 Inactive isosorbide mononitrate ER 30 mg tablet,extended release 24 hr RxNorm: 633215 1 Tablet(s) PO daily TAKE 1 TABLET BY MOUTH ONCE DAILY. 201612/23/2016 Inactive hydrocodone 10 mg-acetaminophen 325 mg tablet RxNorm: 398914 1 Tablet(s) PO Q4-6H as needed pain 09/24/2016 10/17/2016 Inactive cyanocobalamin (vit B-12) 1,000 mcg/mL injection solution RxNorm: 994385 Milliliter(s) Inj 09/16/2016 09/16/2016 Inactive alprazolam 1 mg tablet RxNorm: 374320 1 Tablet(s) PO Q8 PRN as needed TAKE 1 TABLET THREE TIMES DAILY NEEDED FOR ANXIETY. 09/01/2016 11/28/2016 Inactive hydrocodone 10 mg-acetaminophen 325 mg tablet RxNorm: 752268 1 Tablet(s) PO Q4-6H as needed pain 09/01/2016 09/23/2016 Inactive Vitamin D2 50,000 unit capsule RxNorm: 187588 1 Capsule(s) PO QW 08/14/2016 05/26/2017 Inactive Vitamin D2 50,000 unit capsule RxNorm: 011795 1 Capsule(s) PO QW 08/14/2016 08/13/2016 Inactive cyanocobalamin (vit B-12) 1,000 mcg/mL injection solution RxNorm: 458759 1 Milliliter(s) Inj 08/11/2016 08/11/2016 Inactive hydrocodone 10 mg-acetaminophen 325 mg tablet RxNorm: 081768 1 Tablet(s) PO Q4-6H as needed pain 08/07/2016 08/30/2016 Inactive metoprolol tartrate 25 mg tablet RxNorm: 684186 TAKE 1 TABLET BY MOUTH TWICE DAILY 07/23/2016 12/23/2016 Inactive 07/23/2016 10:27:52 AM gabapentin 100 mg capsule RxNorm: 066504 Capsule(s) PO TID TAKE (1) CAPSULE BY MOUTH THREE TIMES DAILY. 07/14/20162016 Inactive hydrocodone 10 mg-acetaminophen 325 mg tablet RxNorm: 938159 1 Tablet(s) PO Q4-6H as needed pain 07/09/2016 08/01/2016 Inactive fluorouracil 5 % topical cream RxNorm: 086859 1 Application TOP BID 07/01/2016 06/30/2016 Inactive fluorouracil 5 % topical cream RxNorm: 241252 1 Application TOP BID 07/01/2016 07/10/2016 Inactive alprazolam 1 mg tablet RxNorm: 058306 1 Tablet(s) PO Q8 PRN as needed TAKE 1 TABLET THREE TIMES DAILY NEEDED FOR ANXIETY. 06/22/2016 08/31/2016 Inactive ( Appended: Controlled substance eRx refill - RxReferenceNumber: [id number]) hydrocodone 10 mg-acetaminophen 325 mg tablet RxNorm: 150745 1 Tablet(s) PO Q4-6H as needed pain 06/16/2016 06/30/2016 Inactive doxycycline hyclate 100 mg capsule RxNorm: 3266055 1 Capsule(s) PO BID 05/27/2016 06/02/2016 Inactive hydrocodone 10 mg-acetaminophen 325 mg tablet RxNorm: 717309 1 Tablet(s) PO Q4-6H as needed pain 05/12/2016 06/04/2016 Inactive [SAVINGS FOR NON-COVERED DRUGS -- BIN :852163, PCN: ASPROD1, Group: XXXXX, ID# [id number], Questions: . THIS IS NOT INSURANCE.] alprazolam 1 mg tablet RxNorm: 808668 1 Tablet(s) PO Q8 PRN as needed TAKE 1 TABLET THREE TIMES DAILY NEEDED FOR ANXIETY. 05/01/2016 11/17/2016 Inactive ( Appended: Controlled substance eRx refill - RxReferenceNumber: [id number]) Flonase 50 mcg/actuation nasal spray,suspension RxNorm: 3451181 1 [place] NASAL BID 1 [place] NASAL BID 04/23/2016 04/17/2017 Inactive Flonase 50 mcg/actuation nasal spray,suspension RxNorm: 4443683 [place] 1 [place] NASAL BID 04/23/2016 04/22/2016 Inactive iron-vitamin C 100 mg-250 mg tablet RxNorm: 091228 1 Tablet(s) PO daily 04/23/2016 08/31/2016 Inactive hydrocodone 10 mg-acetaminophen 325 mg tablet RxNorm: 041090 1 Tablet(s) PO Q4-6H as needed pain 04/14/2016 05/07/2016 Inactive [SAVINGS FOR NON-COVERED DRUGS -- BIN :576545, PCN: ASPROD1, Group: XXXXX, ID# [id number], Questions: . THIS IS NOT INSURANCE.] omeprazole 20 mg tablet,delayed release RxNorm: 915014 Tablet(s) 1 Tablet(s) PO BID 03/16/2016 09/11/2016 Inactive doxycycline hyclate 100 mg tablet RxNorm: 728189 1 Tablet(s) PO BID 03/16/2016 03/15/2016 Inactive doxycycline hyclate 100 mg tablet RxNorm: 264777 1 Tablet(s) PO BID 03/16/2016 03/22/2016 Inactive isosorbide mononitrate ER 30 mg tablet,extended release 24 hr RxNorm: 730679 1 Tablet(s) PO daily TAKE 1 TABLET BY MOUTH ONCE DAILY. 201509/11/2016 Inactive Diflucan 150 mg tablet RxNorm: 872118 1 Tablet(s) PO daily 03/03/2016 Inactive Diflucan 150 mg tablet RxNorm: 907517 1 Tablet(s) PO daily 03/08/2016 Inactive lisinopril 10 mg tablet RxNorm: 556946 Tablet(s) 1 tab(s) po daily 02/11/2016 12/23/2016 Inactive bupropion HCl XL 300 mg 24 hr tablet, extended release RxNorm: 942031 1 Tablet(s) PO daily 02/05/2016 12/23/2016 Inactive hydrocodone 10 mg-acetaminophen 325 mg tablet RxNorm: 159245 1 Tablet(s) PO Q4-6H as needed pain 01/31/2016 02/23/2016 Inactive [SAVINGS FOR NON-COVERED DRUGS -- BIN :751003, PCN: ASPROD1, Group: XXXXX, ID# [id number], Questions: . THIS IS NOT INSURANCE.] alprazolam 1 mg tablet RxNorm: 220393 1 Tablet(s) PO Q8 PRN as needed TAKE 1 TABLET THREE TIMES DAILY NEEDED FOR ANXIETY. 01/21/2016 06/21/2016 Inactive ( Appended: Controlled substance eRx refill - RxReferenceNumber: [id number]) buspirone 5 mg tablet RxNorm: 946682 1 Tablet(s) PO BID 201501/20/2016 Inactive betamethasone valerate 0.1 % topical ointment RxNorm: 113604 1 TOP TID on rash of hand and leg 01/14/2016 02/12/2016 Inactive hydrocodone 10 mg-acetaminophen 325 mg tablet RxNorm: 037480 1 Tablet(s) PO Q4-6H as needed pain 12/31/2015 01/23/2016 Inactive [SAVINGS FOR NON-COVERED DRUGS -- BIN :159193, PCN: ASPROD1, Group: XXXXX, ID# [id number], Questions: . THIS IS NOT INSURANCE.] cyanocobalamin (vit B-12) 1,000 mcg/mL injection solution RxNorm: 501743 Milliliter(s) Inj 12/03/2015 12/03/2015 Inactive hydrocodone 10 mg-acetaminophen 325 mg tablet RxNorm: 947418 1 Tablet(s) PO Q4-6H as needed pain 11/20/2015 12/13/2015 Inactive [SAVINGS FOR NON-COVERED DRUGS -- BIN :501471, PCN: ASPROD1, Group: XXXXX, ID# [id number], Questions: . THIS IS NOT INSURANCE.] Lipitor 40 mg tablet RxNorm: 792478 1 Tablet(s) PO QHS TAKE 1 TABLET BY MOUTH ONCE DAILY. 10/29/2015 10/22/2016 Inactive pt to take 2 tabs of lipitor 20mg. She will call when ready to fill 40mg. hydrocodone 10 mg-acetaminophen 325 mg tablet RxNorm: 528375 1 Tablet(s) PO Q4-6H as needed pain 10/04/2015 11/19/2015 Inactive [SAVINGS FOR NON-COVERED DRUGS -- BIN :107156, PCN: ASPROD1, Group: XXXXX, ID# [id number], Questions: . THIS IS NOT INSURANCE.] alprazolam 1 mg tablet RxNorm: 717133 1 Tablet(s) PO Q8 PRN as needed TAKE 1 TABLET THREE TIMES DAILY NEEDED FOR ANXIETY. 09/25/2015 01/20/2016 Inactive ( Appended: Controlled substance eRx refill - RxReferenceNumber: [id number]) isosorbide mononitrate ER 30 mg tablet,extended release 24 hr RxNorm: 761305 1 Tablet(s) PO daily TAKE 1 TABLET BY MOUTH ONCE DAILY. 201503/15/2016 Inactive hydrocodone 10 mg-acetaminophen 325 mg tablet RxNorm: 114300 1 Tablet(s) PO Q4-6H as needed pain 07/02/2015 08/18/2015 Inactive [SAVINGS FOR NON-COVERED DRUGS -- BIN :504717, PCN: ASPROD1, Group: XXXXX, ID# [id number], Questions: . THIS IS NOT INSURANCE.] omeprazole 20 mg tablet,delayed release RxNorm: 869753 1 Tablet(s) PO BID 06/25/2015 01/20/2016 Inactive [SAVINGS FOR UNINSURED PATIENTS -- BIN:464665, PCN: ASPROD1, Group: AME08, ID# [id number], Process claim through [employer], for questions: . THIS IS NOT INSURANCE.] gabapentin 100 mg capsule RxNorm: 840878 TAKE 1 CAPSULE BY MOUTH 3 TIMES DAILY * SCHEDULED PREVENTION MEDICINE* 06/25/2015 06/18/2016 Inactive Generic For:NEURONTIN 100MG 06/25/2015 9:18:27 AM N O T I C E Last quantity doesn't match original quantity hydrocodone 10 mg-acetaminophen 325 mg tablet RxNorm: 712630 1 Tablet(s) PO Q4-6H as needed pain 06/07/2015 06/30/2015 Inactive [SAVINGS FOR NON-COVERED DRUGS -- BIN :963636, PCN: ASPROD1, Group: XXXXX, ID# [id number], Questions: . THIS IS NOT INSURANCE.] Amitiza 8 mcg capsule RxNorm: 559741 1 Capsule(s) PO daily 05/0904/22/2016 Inactive cyanocobalamin (vit B-12) 1,000 mcg/mL injection solution RxNorm: 564393 Milliliter(s) Inj 04/12/2015 04/12/2015 Inactive alprazolam 1 mg tablet RxNorm: 523992 1 Tablet(s) PO Q8 PRN as needed TAKE 1 TABLET THREE TIMES DAILY NEEDED FOR ANXIETY. 04/12/2015 09/24/2015 Inactive ( Appended: Controlled substance eRx refill - RxReferenceNumber: [id number]) hydrocodone 10 mg-acetaminophen 325 mg tablet RxNorm: 252874 1 Tablet(s) PO Q4-6H as needed pain 04/09/2015 05/01/2015 Inactive [SAVINGS FOR NON-COVERED DRUGS -- BIN :415220, PCN: ASPROD1, Group: XXXXX, ID# [id number], Questions: . THIS IS NOT INSURANCE.] hydrocodone 10 mg-acetaminophen 325 mg tablet RxNorm: 936718 1 Tablet(s) PO Q4-6H as needed pain 03/12/2015 04/04/2015 Inactive [SAVINGS FOR NON-COVERED DRUGS -- BIN :054393, PCN: ASPROD1, Group: XXXXX, ID# [id number], Questions: . THIS IS NOT INSURANCE.] Anusol-HC 25 mg suppository RxNorm: 7230218 1 Suppository RTL QHS as needed 03/12/2015 04/10/2015 Inactive hydrocodone 10 mg-acetaminophen 325 mg tablet RxNorm: 030094 1 Tablet(s) PO Q4-6H as needed pain 02/08/2015 03/03/2015 Inactive [SAVINGS FOR NON-COVERED DRUGS -- BIN :272772, PCN: ASPROD1, Group: XXXXX, ID# [id number], Questions: . THIS IS NOT INSURANCE.] cyanocobalamin (vit B-12) 1,000 mcg/mL injection solution RxNorm: 534255 Milliliter(s) Inj 01/22/2015 01/22/2015 Inactive Vitamin D2 50,000 unit capsule RxNorm: 771370 1 Capsule(s) PO QW 01/10/2015 01/09/2015 Inactive Vitamin D2 50,000 unit capsule RxNorm: 383227 1 Capsule(s) PO QW 01/10/2015 04/09/2015 Inactive [SAVINGS FOR NON-COVERED DRUGS -- BIN:916635, PCN: ASPROD1, Group: XXXXX, ID# [id number], Questions: . THIS IS NOT INSURANCE.] Flonase 50 mcg/actuation nasal spray,suspension RxNorm: 4321220 1 [place] NASAL BID 01/09/2015 01/03/2016 Inactive [SAVINGS FOR UNINSURED PATIENTS -- BIN:493980, PCN: ASPROD1, Group: AME08, ID# [id number], Process claim through [employer], for questions: . THIS IS NOT INSURANCE.] Kenalog 40 mg/mL suspension for injection RxNorm: 5901988 1 Milliliter(s) Inj 01/08/2015 01/08/2015 Inactive Vitamin B-12 1,000 mcg/mL injection solution RxNorm: 943656 1 Milliliter(s) Inj 01/08/2015 01/08/2015 Inactive [SAVINGS FOR NON-COVERED DRUGS -- BIN:121344, PCN: ASPROD1, Group: XXXXX, ID# [id number], Questions: . THIS IS NOT INSURANCE.] bupropion HCl XL 300 mg 24 hr tablet, extended release RxNorm: 698794 1 Tablet(s) PO daily 01/08/2015 02/01/2016 Inactive this replaces the wellbutrin sr 150mg bid dose she currently has on file metoprolol tartrate 25 mg tablet RxNorm: 703215 1 Tablet(s) PO BID 12/17/2014 12/11/2015 Inactive hydrocodone 10 mg-acetaminophen 325 mg tablet RxNorm: 978186 1 Tablet(s) PO Q4-6H as needed pain 12/05/2014 12/28/2014 Inactive [SAVINGS FOR NON-COVERED DRUGS -- BIN :042435, PCN: ASPROD1, Group: XXXXX, ID# [id number], Questions: . THIS IS NOT INSURANCE.] cyanocobalamin (vit B-12) 1,000 mcg/mL injection solution RxNorm: 713355 Milliliter(s) Inj 11/28/2014 11/28/2014 Inactive [SAVINGS FOR NON-COVERED DRUGS -- BIN:107057, PCN: ASPROD1, Group: XXXXX, ID# [id number], Questions: . THIS IS NOT INSURANCE.] lisinopril 10 mg tablet RxNorm: 380597 1 tab(s) po daily 201402/10/2016 Inactive lisinopril 10 mg tablet RxNorm: 051333 1 Tablet(s) PO daily 11/04/2014 Inactive [SAVINGS FOR NON-COVERED DRUGS -- BIN:864357, PCN: ASPROD1, Group: XXXXX, ID# [id number], Questions: . THIS IS NOT INSURANCE.] alprazolam 1 mg tablet RxNorm: 053890 1 Tablet(s) PO Q8 PRN as needed TAKE 1 TABLET THREE TIMES DAILY NEEDED FOR ANXIETY. 10/31/2014 04/11/2015 Inactive ( Appended: Controlled substance eRx refill - RxReferenceNumber: [id number]) hydrocodone 10 mg-acetaminophen 325 mg tablet RxNorm: 398107 1 Tablet(s) PO Q4-6H as needed pain 10/31/2014 11/29/2014 Inactive [SAVINGS FOR NON-COVERED DRUGS -- BIN :548883, PCN: ASPROD1, Group: XXXXX, ID# [id number], Questions: . THIS IS NOT INSURANCE.] bupropion HCl XL 300 mg 24 hr tablet, extended release RxNorm: 047993 1 Tablet(s) PO daily 10/29/2014 01/07/2015 Inactive this replaces the wellbutrin sr 150mg bid dose she currently has on file cyanocobalamin (vit B-12) 1,000 mcg/mL injection solution RxNorm: 865399 Milliliter(s) Inj 10/04/2014 10/04/2014 Inactive [SAVINGS FOR UNINSURED PATIENTS - - BIN:247786, PCN: ASPROD1, Group: AME08, ID# [id number], Process claim through [employer], for questions: . THIS IS NOT INSURANCE.] hydrocodone 10 mg-acetaminophen 325 mg tablet RxNorm: 655142 1 Tablet(s) PO Q4-6H as needed pain 10/04/2014 10/30/2014 Inactive [SAVINGS FOR UNINSURED PATIENTS -- BIN:913680, PCN: ASPROD1, Group: AME08, ID# [id number], Process claim through [employer], for questions: . THIS IS NOT INSURANCE.] Flonase 50 mcg/actuation nasal spray,suspension RxNorm: 745800 1 [place] NASAL BID 10/04/2014 12/02/2014 Inactive [SAVINGS FOR UNINSURED PATIENTS -- BIN:423935, PCN: ASPROD1, Group: AME08, ID# [id number], Process claim through [employer], for questions: . THIS IS NOT INSURANCE.] hydrocodone 10 mg-acetaminophen 325 mg tablet RxNorm: 992179 1 Tablet(s) PO Q4-6H as needed pain 10/04/2014 11/02/2014 Inactive [SAVINGS FOR UNINSURED PATIENTS -- BIN:233186, PCN: ASPROD1, Group: AME08, ID# [id number], Process claim through [employer], for questions: . THIS IS NOT INSURANCE.] alprazolam 1 mg tablet RxNorm: 989574 1 Tablet(s) PO Q8 PRN as needed TAKE 1 TABLET THREE TIMES DAILY NEEDED FOR ANXIETY. 09/26/2014 10/30/2014 Inactive ( Appended: Controlled substance eRx refill - RxReferenceNumber: [id number]) cyanocobalamin (vit B-12) 1,000 mcg/mL injection solution RxNorm: 238764 Milliliter(s) Inj 09/10/2014 09/10/2014 Inactive [SAVINGS FOR UNINSURED PATIENTS - - BIN:467222, PCN: ASPROD1, Group: AME08, ID# [id number], Process claim through [employer], for questions: . THIS IS NOT INSURANCE.] omeprazole 20 mg tablet,delayed release RxNorm: 529677 1 Tablet(s) PO BID 09/10/2014 04/07/2015 Inactive [SAVINGS FOR UNINSURED PATIENTS -- BIN:174465, PCN: ASPROD1, Group: AME08, ID# [id number], Process claim through [employer], for questions: . THIS IS NOT INSURANCE.] hydrocodone 10 mg-acetaminophen 325 mg tablet RxNorm: 783609 1 Tablet(s) PO Q4-6H as needed pain 09/03/2014 10/02/2014 Inactive [SAVINGS FOR UNINSURED PATIENTS -- BIN:818359, PCN: ASPROD1, Group: AME08, ID# [id number], Process claim through [employer], for questions: . THIS IS NOT INSURANCE.] cyanocobalamin (vit B-12) 1,000 mcg/mL injection solution RxNorm: 908475 Milliliter(s) Inj 08/06/2014 08/06/2014 Inactive [SAVINGS FOR UNINSURED PATIENTS - - BIN:577068, PCN: ASPROD1, Group: AME08, ID# [id number], Process claim through [employer], for questions: . THIS IS NOT INSURANCE.] prednisone 20 mg tablet RxNorm: 718182 3 Tablet(s) PO daily 08/10/2014 Inactive hydrocodone 10 mg-acetaminophen 325 mg tablet RxNorm: 369737 1 Tablet(s) PO Q4-6H as needed pain 07/12/2014 08/10/2014 Inactive [SAVINGS FOR UNINSURED PATIENTS -- BIN:568152, PCN: ASPROD1, Group: AME08, ID# [id number], Process claim through [employer], for questions: . THIS IS NOT INSURANCE.] alprazolam 1 mg tablet RxNorm: 701248 1 Tablet(s) PO Q8 PRN as needed TAKE 1 TABLET THREE TIMES DAILY NEEDED FOR ANXIETY. 07/12/2014 09/25/2014 Inactive ( Appended: Controlled substance eRx refill - RxReferenceNumber: [id number]) cyanocobalamin (vit B-12) 1,000 mcg/mL injection solution RxNorm: 860574 Milliliter(s) Inj 07/12/2014 07/12/2014 Inactive [SAVINGS FOR UNINSURED PATIENTS - - BIN:130373, PCN: ASPROD1, Group: AME08, ID# [id number], Process claim through [employer], for questions: . THIS IS NOT INSURANCE.] hydrocodone 10 mg-acetaminophen 325 mg tablet RxNorm: 206835 1 Tablet(s) PO Q4-6H as needed pain 06/28/2014 07/11/2014 Inactive [SAVINGS FOR UNINSURED PATIENTS -- BIN:923734, PCN: ASPROD1, Group: AME08, ID# [id number], Process claim through [employer], for questions: . THIS IS NOT INSURANCE.] cyanocobalamin (vit B-12) 1,000 mcg/mL injection solution RxNorm: 373497 1 Milliliter(s) Inj 06/28/2014 06/28/2014 Inactive [SAVINGS FOR UNINSURED PATIENTS - - BIN:402350, PCN: ASPROD1, Group: AME08, ID# [id number], Process claim through [employer], for questions: . THIS IS NOT INSURANCE.] cyanocobalamin (vit B-12) 1,000 mcg/mL injection solution RxNorm: 162336 Milliliter(s) Inj 06/14/2014 06/14/2014 Inactive [SAVINGS FOR UNINSURED PATIENTS - - BIN:374181, PCN: ASPROD1, Group: AME08, ID# [id number], Process claim through [employer], for questions: . THIS IS NOT INSURANCE.] cyanocobalamin (vit B-12) 1,000 mcg/mL injection solution RxNorm: 857000 Milliliter(s) Inj 05/31/2014 05/31/2014 Inactive [SAVINGS FOR UNINSURED PATIENTS - - BIN:598194, PCN: ASPROD1, Group: AME08, ID# [id number], Process claim through [employer], for questions: . THIS IS NOT INSURANCE.] cyanocobalamin (vit B-12) 1,000 mcg/mL injection solution RxNorm: 745717 Milliliter(s) Inj 05/16/2014 05/16/2014 Inactive [SAVINGS FOR UNINSURED PATIENTS - - BIN:060466, PCN: ASPROD1, Group: AME08, ID# [id number], Process claim through [employer], for questions: . THIS IS NOT INSURANCE.] trazodone 50 mg tablet RxNorm: 781161 1 Tablet(s) PO QPM 201308/05/2014 Inactive [SAVINGS FOR UNINSURED PATIENTS -- BIN:571505, PCN: ASPROD1, Group: AME08, ID # [id number], Process claim through [employer], for questions: . THIS IS NOT INSURANCE.] alprazolam 1 mg tablet RxNorm: 470913 1 Tablet(s) PO Q8 PRN as needed TAKE 1 TABLET THREE TIMES DAILY NEEDED FOR ANXIETY. 04/27/2014 07/11/2014 Inactive ( Appended: Controlled substance eRx refill - RxReferenceNumber: [id number]) cyanocobalamin (vit B-12) 1,000 mcg/mL injection solution RxNorm: 612733 1 Milliliter(s) Inj 04/05/2014 04/05/2014 Inactive [SAVINGS FOR UNINSURED PATIENTS - - BIN:242492, PCN: ASPROD1, Group: AME08, ID# [id number], Process claim through [employer], for questions: . THIS IS NOT INSURANCE.] gabapentin 100 mg capsule RxNorm: 052453 TAKE 1 CAPSULE BY MOUTH 3 TIMES DAILY * SCHEDULED PREVENTION MEDICINE* 03/29/2014 03/23/2015 Inactive Generic For:NEURONTIN 100MG 03/29/2014 3:08:32 PM N O T I C E Last dispense quantity was less than original quantity written hydrocodone 10 mg-acetaminophen 325 mg tablet RxNorm: 127372 1 Tablet(s) PO Q4-6H as needed pain 03/05/2014 06/27/2014 Inactive [SAVINGS FOR UNINSURED PATIENTS -- BIN:[id number], PCN: [id number], Group: [id number], ID# [id number], Process claim through [employer], for questions: . THIS IS NOT INSURANCE.] bupropion HCl XL 300 mg 24 hr tablet, extended release RxNorm: 023857 1 Tablet(s) PO daily 03/05/2014 10/28/2014 Inactive this replaces the wellbutrin sr 150mg bid dose she currently has on file cyanocobalamin (vit B-12) 1,000 mcg/mL injection solution RxNorm: 073656 Milliliter(s) Inj 02/01/2014 02/01/2014 Inactive betamethasone valerate 0.1 % topical cream RxNorm: 760822 1 Application TOP BID 02/01/2014 02/01/2014 Inactive lisinopril 10 mg tablet RxNorm: 360228 1 Tablet(s) PO daily 07/201403/02/2014 Inactive Diflucan 150 mg tablet RxNorm: 745022 1 Tablet(s) PO every other day 01/22/2014 02/04/2014 Inactive doxycycline hyclate 100 mg tablet RxNorm: 029135 1 Tablet(s) PO BID 12/29/2013 12/28/2013 Inactive cyanocobalamin (vit B-12) 1,000 mcg/mL injection solution RxNorm: 780261 Milliliter(s) Inj 12/29/2013 12/29/2013 Inactive doxycycline hyclate 100 mg tablet RxNorm: 451620 1 Tablet(s) PO BID 12/29/2013 01/04/2014 Inactive metoprolol tartrate 25 mg tablet RxNorm: 231778 1 Tablet(s) PO BID 12/14/2013 12/08/2014 Inactive trimethoprim 0.1 %-polymyxin B 10,000 unit/mL eye drops RxNorm: 815126 2 Drop(s) OPH TID right eye 12/07/2013 12/13/2013 Inactive nystatin-triamcinolone 100,000 unit/g-0.1 % topical cream RxNorm: 8303072 1 TOP BID 12/07/2013 12/16/2013 Inactive Lipitor 20 mg tablet RxNorm: 856731 1 Tablet(s) PO QHS TAKE 1 TABLET BY MOUTH ONCE DAILY. 11/30/2013 11/24/2014 Inactive Lipitor 20 mg tablet RxNorm: 528543 1 Tablet(s) PO QHS TAKE 1 TABLET BY MOUTH ONCE DAILY. 11/30/2013 11/29/2013 Inactive hydrocodone 10 mg-acetaminophen 325 mg tablet RxNorm: 153361 1 Tablet(s) PO Q6 PRN 11/24/2013 No Stop Date Active Carafate 1 gram tablet RxNorm: 839694 1 Tablet(s) PO QID TAKE 1 TABLET BY MOUTH 4 TIMES DAILY. 10/09/2013 04/22/2016 Inactive alprazolam 1 mg tablet RxNorm: 194574 1 Tablet(s) PO Q8 PRN TAKE 1 TABLET THREE TIMES DAILY NEEDED FOR ANXIETY. 10/09/2013 No Stop Date Active (Appended: Controlled substance eRx refill - RxReferenceNumber: [id number]) isosorbide mononitrate ER 30 mg tablet,extended release 24 hr RxNorm: 699045 1 Tablet(s) PO daily TAKE 1 TABLET BY MOUTH ONCE DAILY. 201304/29/2014 Inactive hydrocodone 10 mg-acetaminophen 325 mg tablet RxNorm: 958384 Tablet(s) PO 09/04/2013 No Stop Date Active bupropion HCl XL 150 mg 24 hr tablet, extended release RxNorm: 978965 1 Tablet(s) PO daily 09/04/2013 03/04/2014 Inactive this replaces the wellbutrin sr 150mg bid dose she currently has on file Lipitor 20 mg tablet RxNorm: 316013 Tablet(s) PO TAKE 1 TABLET BY MOUTH ONCE DAILY. 08/21/2013 11/29/2013 Inactive hydrocodone 5 mg-acetaminophen 325 mg tablet RxNorm: 4691660 1 Tablet(s) PO Q6 PRN 08/11/2013 No Stop Date Active Lipitor 20 mg tablet RxNorm: 353142 Tablet(s) PO TAKE 1 TABLET BY MOUTH ONCE DAILY. 08/10/2013 08/20/2013 Inactive alprazolam 1 mg tablet RxNorm: 048706 1 Tablet(s) PO Q8 PRN TAKE 1 TABLET THREE TIMES DAILY NEEDED FOR ANXIETY. 08/10/2013 No Stop Date Active (Appended: Controlled substance eRx refill - RxReferenceNumber: [id number]) Lipitor 20 mg tablet RxNorm: 062559 Tablet(s) PO TAKE 1 TABLET BY MOUTH ONCE DAILY. 07/17/2013 08/09/2013 Inactive Lipitor 20 mg tablet RxNorm: 276566 1 Tablet(s) PO QPM TAKE 1 TABLET BY MOUTH ONCE DAILY. 07/05/2013 07/16/2013 Inactive Lipitor 20 mg tablet RxNorm: 036876 Tablet(s) PO TAKE 1 TABLET BY MOUTH ONCE DAILY. 06/19/2013 07/04/2013 Inactive Carafate 1 gram tablet RxNorm: 204178 Tablet(s) PO TAKE 1 TABLET BY MOUTH 4 TIMES DAILY. 06/16/2013 10/08/2013 Inactive isosorbide mononitrate ER 30 mg tablet,extended release 24 hr RxNorm: 392666 Tablet (s) PO TAKE 1 TABLET BY MOUTH ONCE DAILY. 06/16/2013 10/01/2013 Inactive hydrocodone 10 mg-acetaminophen 325 mg tablet RxNorm: 284855 Tablet(s) PO 05/18/2013 No Stop Date Active Lipitor 20 mg tablet RxNorm: 898767 Tablet(s) PO TAKE 1 TABLET BY MOUTH ONCE DAILY. 04/27/2013 06/18/2013 Inactive ketorolac 60 mg/2 mL IM RxNorm: 620253 1 Milliliter(s) IM 04/1804/18/2013 Inactive hydrocodone 10 mg-acetaminophen 325 mg tablet RxNorm: 8590576 Tablet(s) PO 04/10/2013 No Stop Date Active hydrocodone 5 mg-acetaminophen 325 mg tablet RxNorm: 6318360 1 Tablet(s) PO Q6 PRN 04/10/2013 No Stop Date Active alprazolam 1 mg tablet RxNorm: 425043 1 Tablet(s) PO Q8 PRN TAKE 1 TABLET THREE TIMES DAILY NEEDED FOR ANXIETY. 03/16/2013 No Stop Date Active (Appended: Controlled substance eRx refill - RxReferenceNumber: [id number]) metoprolol tartrate 25 mg tablet RxNorm: 697880 1 Tablet(s) PO BID 03/16/2013 10/11/2013 Inactive citalopram 40 mg tablet RxNorm: 336133 1 Tablet(s) PO QPM 03/1603/09/2014 Inactive hydrocodone 5 mg-acetaminophen 325 mg tablet RxNorm: 5669079 1 Tablet(s) PO Q6 PRN 01/26/2013 No Stop Date Active doxycycline hyclate 100 mg tablet,delayed release RxNorm: 902849 1 Tablet(s) PO BID 01/26/2013 02/08/2013 Inactive Diflucan 150 mg tablet RxNorm: 197896 1 Tablet(s) PO daily 01/201302/04/2013 Inactive gabapentin 100 mg capsule RxNorm: 631300 Capsule(s) PO TAKE (1) CAPSULE BY MOUTH THREE TIMES DAILY. 01/19/2013 07/13/2016 Inactive gabapentin 100 mg capsule RxNorm: 024587 Capsule(s) PO TAKE (1) CAPSULE BY MOUTH THREE TIMES DAILY. 01/19/2013 03/28/2014 Inactive prednisone 10 mg tablets in a dose pack RxNorm: 692409 Tablet(s) PO 12/27/2012 01/01/2013 Inactive Bactroban 2 % Topical Ointment RxNorm: 875840 1 Application TOP BID 12/27/2012 01/02/2013 Inactive gabapentin 100 mg capsule RxNorm: 531978 1 Capsule(s) PO TID 01/18/2013 Inactive TAKE 1 CAPSULE BY MOUTH 3 TIMES DAILY (SCHEDULED) Lipitor 20 mg tablet RxNorm: 621780 Tablet(s) PO TAKE 1 TABLET BY MOUTH ONCE DAILY. 11/17/2012 04/26/2013 Inactive citalopram 40 mg tablet RxNorm: 763741 1 Tablet(s) PO daily 03/15/2013 Inactive citalopram 40 mg tablet RxNorm: 930555 1 Tablet(s) PO daily 11/13/2012 Inactive alprazolam 1 mg tablet RxNorm: 778328 Tablet(s) PO TAKE 1 TABLET THREE TIMES DAILY NEEDED FOR ANXIETY. 10/04/2012 Inactive (Appended: Controlled substance eRx refill - RxReferenceNumber: [id number]) bupropion HCl XL 300 mg 24 hr tablet, extended release RxNorm: 354103 1 Tablet(s) PO daily 09/21/2012 09/03/2013 Inactive this replaces the wellbutrin sr 150mg bid dose she currently has on file hydrocodone 5 mg-acetaminophen 325 mg tablet RxNorm: 7525880 1 Tablet(s) PO Q6 PRN 09/08/2012 09/07/2012 Inactive hydrocodone-acetaminophen 5 mg-325 mg tablet RxNorm: 1079728 1 Tablet(s) PO Q6 PRN 09/08/2012 No Stop Date Active Wellbutrin SR 150 mg tablet,sustained-release RxNorm: 090044 Tablet(s) PO TAKE 1 TABLET BY MOUTH TWICE DAILY. 09/01/2012 Inactive clindamycin 300 mg capsule RxNorm: 716412 1 Capsule(s) PO BID 08/02/2012 08/15/2012 Inactive hydrocodone-acetaminophen 5 mg-325 mg tablet RxNorm: 0227746 1 Tablet(s) PO Q6 PRN 08/02/2012 09/07/2012 Inactive metronidazole 500 mg tablet RxNorm: 921004 1 Tablet(s) PO TID 08/02/2012 08/15/2012 Inactive Kenalog 40 mg/mL Susp for Injection RxNorm: 7122676 Milliliter(s) Inj 06/27/2012 06/27/2012 Inactive prednisone 10 mg tablets in a dose pack RxNorm: 930064 1 Tablet(s) PO as directed 06/27/2012 07/06/2012 Inactive alprazolam 1 mg tablet RxNorm: 043608 Tablet(s) PO 06/10/2012 10/04/2012 Inactive TAKE 1 TABLET THREE TIMES DAILY NEEDED FOR ANXIETY. (Appended: Controlled substance eRx refill - RxReferenceNumber: [id number]) Kenalog 40 mg/mL Susp for Injection RxNorm: 1236516 1 Milliliter(s) Inj 06/06/2012 06/06/2012 Inactive Voltaren 1 % Topical Gel RxNorm: 905413 1 Application TOP QID apply two grams to right elbow, 4 grams to right shoulder and neck, and 4 grams to sacroiliac joint 4 times daily 06/06/2012 06/05/2012 Inactive Voltaren 1 % Topical Gel RxNorm: 122677 1 Application TOP QID apply two grams to right elbow, 4 grams to right shoulder and neck, and 4 grams to sacroiliac joint 4 times daily 06/06/2012 08/31/2016 Inactive alprazolam 1 mg tablet RxNorm: 537130 Tablet(s) PO 06/06/2012 06/09/2012 Inactive TAKE 1 TABLET THREE TIMES DAILY NEEDED FOR ANXIETY. (Appended: Controlled substance eRx refill - RxReferenceNumber: [id number]) alprazolam 1 mg tablet RxNorm: 984442 Tablet(s) PO 06/01/2012 06/06/2012 Inactive TAKE 1 TABLET THREE TIMES DAILY NEEDED FOR ANXIETY. (Appended: Controlled substance eRx refill - RxReferenceNumber: [id number]) hydrocodone-acetaminophen 5 mg-325 mg tablet RxNorm: 6161057 1 Tablet(s) PO Q6 PRN 05/16/2012 08/01/2012 Inactive isosorbide mononitrate ER 30 mg tablet,extended release 24 hr RxNorm: 062055 Tablet (s) PO 03/14/2012 06/15/2013 Inactive TAKE 1 TABLET BY MOUTH ONCE DAILY. Lipitor 20 mg tablet RxNorm: 059807 Tablet(s) PO 03/14/2012 11/16/2012 Inactive TAKE 1 TABLET BY MOUTH ONCE DAILY. gabapentin 100 mg Cap RxNorm: 057140 Capsule(s) PO 03/03/2012 03/02/2012 Inactive TAKE 1 CAPSULE BY MOUTH 3 TIMES DAILY (SCHEDULED) isosorbide mononitrate ER 30 mg tablet,extended release 24 hr RxNorm: 247361 1 Tablet(s) PO daily 03/03/2012 No Stop Date Active gabapentin 100 mg capsule RxNorm: 305425 Capsule(s) PO 201112/18/2012 Inactive TAKE 1 CAPSULE BY MOUTH 3 TIMES DAILY (SCHEDULED) Celexa 20 mg Tab RxNorm: 416674 1 Tablet(s) PO daily 201111/14/2012 Inactive Vitamin B-12 1,000 mcg/mL Injection RxNorm: 058219 Milliliter(s) Inj 02/08/2012 02/08/2012 Inactive Wellbutrin SR 150 mg tablet,sustained-release RxNorm: 913690 1 Tablet(s) PO daily 02/08/2012 09/20/2012 Inactive Rocephin 500 mg Solution for Injection RxNorm: 391296 Inj 01/3102/01/2012 Inactive cefdinir 300 mg Cap RxNorm: 692869 1 Capsule(s) PO BID 201102/29/2012 Inactive triamcinolone acetonide 0.1 % Dental Paste RxNorm: 5745627 1 Application [place] QID 01/22/2012 01/28/2012 Inactive alprazolam 1 mg tablet RxNorm: 021617 1 Tablet(s) PO TID PRN 06/01/2012 Inactive alprazolam 1 mg Tab RxNorm: 282296 1 Tablet(s) PO TID PRN 01/10/2012 Inactive Carafate 1 gram tablet RxNorm: 829833 1 Tablet(s) PO QID 201112/04/2012 Inactive hydrocodone-acetaminophen 5 mg-325 mg Tab RxNorm: 3356282 1-2 Tablet(s) PO Q6 PRN 11/13/2011 12/12/2011 Inactive Kenalog 40 mg/mL Susp for Injection RxNorm: 3444806 1 Milliliter(s) Inj 10/20/2011 10/20/2011 Inactive Bactrim DS 800 mg-160 mg Tab RxNorm: 983650 1 Tablet(s) PO BID 10/19/2011 02/29/2012 Inactive alprazolam 1 mg Tab RxNorm: 007410 1 Tablet(s) PO TID PRN 11/17/2011 Inactive hydrocodone-acetaminophen 5 mg-325 mg Tab RxNorm: 2397391 1-2 Tablet(s) PO Q6 PRN 10/15/2011 11/12/2011 Inactive hydrocodone-acetaminophen 5 mg-325 mg Tab RxNorm: 7210589 1-2 Tablet(s) PO Q6 PRN 09/24/2011 10/14/2011 Inactive citalopram 40 mg Tab RxNorm: 429270 1 Tablet(s) PO daily 201102/29/2012 Inactive alprazolam 1 mg Tab RxNorm: 739319 1 Tablet(s) PO TID PRN 10/201110/18/2011 Inactive Wellbutrin SR 150 mg Tab RxNorm: 400077 1 Tablet(s) PO BID 10/201102/07/2012 Inactive Wellbutrin SR 150 mg tablet,sustained-release RxNorm: 474642 1 Tablet(s) PO BID 08/25/2011 02/01/2012 Inactive Lipitor 20 mg tablet RxNorm: 797080 1 Tablet(s) PO daily 201002/14/2012 Inactive Percocet 10 mg-325 mg Tab RxNorm: 0677098 1 Tablet(s) PO Q6 PRN 08/13/2011 02/29/2012 Inactive hydrocodone-acetaminophen 5 mg-325 mg Tab RxNorm: 5861598 1-2 Tablet(s) PO Q6 PRN 08/04/2011 09/23/2011 Inactive naproxen 500 mg tablet RxNorm: 615025 1 Tablet(s) PO BID 201001/25/2012 Inactive hydrochlorothiazide 25 mg Tab RxNorm: 772477 1 Tablet(s) PO daily 07/28/2011 01/23/2012 Inactive ketorolac 60 mg/2 mL IM RxNorm: 553416 Milliliter(s) IM 201007/15/2011 Inactive ketorolac 60 mg/2 mL IM RxNorm: 793110 Milliliter(s) IM 201007/02/2011 Inactive ketorolac 15 mg/mL Injection RxNorm: 032666 1 Milliliter(s) Inj 06/24/2011 07/02/2011 Inactive hydrocodone-acetaminophen 5 mg-325 mg Tab RxNorm: 4281685 1-2 Tablet(s) PO Q6 PRN 06/16/2011 08/03/2011 Inactive gabapentin 100 mg Cap RxNorm: 315066 1 Capsule(s) PO TID 201002/01/2012 Inactive lisinopril 10 mg tablet RxNorm: 325489 1 Tablet(s) PO daily 01/25/2012 Inactive alprazolam 1 mg Tab RxNorm: 370312 1 Tablet(s) PO TID PRN 08/24/2011 Inactive Mobic 15 mg Tab RxNorm : 914925 1 Tablet(s) PO daily 05/08/2011 02/01/2012 Inactive triamcinolone acetonide 0.5 % topical cream RxNorm: 2252373 TOP BID No Start Date Active Lipitor 10 mg Tab RxNorm: 646400 1 Tablet(s) PO daily No Start Date 02/01/2012 Inactive citalopram 40 mg Tab RxNorm: 864943 1 Tablet(s) PO daily No Start Date 02/01/2012 Inactive colestipol 1 gram Tab RxNorm: 5020816 1 Tablet(s) PO daily No Start Date 01/31/2012 Inactive hydrocodone-acetaminophen 5 mg-325 mg tablet RxNorm: 4255347 1 Tablet(s) PO PRN 1 tab q6hrs prn No Start Date 05/15/2012 Inactive lisinopril 10 mg Tab RxNorm: 048890 1 Tablet(s) PO daily No Start Date 06/15/2011 Inactive metoprolol succinate ER 25 mg 24 hr Tab RxNorm: 174830 1 Tablet(s) PO daily No Start Date 02/01/2012 Inactive hydrocodone-acetaminophen 5 mg-325 mg Tab RxNorm: 7436794 1 Tablet(s) PO Q6 PRN No Start Date 06/15/2011 Inactive hydrocodone 10 mg-acetaminophen 325 mg tablet RxNorm: 0883203 Tablet(s) PO No Start Date 04/10/2013 Inactive aspirin, buffered 81 mg Tab RxNorm: 762099 1 Tablet(s) PO daily No Start Date 04/16/2011 Inactive citalopram 40 mg Tab RxNorm: 916164 1 Tablet(s) PO daily No Start Date 02/01/2012 Inactive aspirin 81 mg Cap, Delayed Release RxNorm: 272661 1 Capsule(s) PO daily No Start Date 08/31/2016 Inactive isosorbide mononitrate ER 30 mg 24 hr Tab RxNorm: 299203 1 Tablet(s) PO daily No Start Date 02/01/2012 Inactive Fish Oil 1,000 mg Cap RxNorm: 1 Capsule(s) PO daily No Start Date 08/31/2016 Inactive prednisone 10 mg Tab RxNorm: 005270 1 Tablet(s) PO as doctor directed 6 po daily x 2days, then 4 daily x 2days, then2 daily x 2days, then 1 daily x 2days, then 1 /2 dailyx 4 d No Start Date 02/01/2012 Inactive alprazolam 1 mg Tab RxNorm: 894222 1 Tablet(s) PO TID PRN No Start Date 06/15/2011 Inactive Diflucan 150 mg tablet RxNorm: 934763 1 Tablet(s) PO every other day No Start Date 01/21/2014 Inactive betamethasone, augmented 0.05 % Topical Cream RxNorm: 180751 1 Application TOP No Start Date 02/01/2012 Inactive Carafate 1 gram Tab RxNorm: 713241 1 Tablet(s) PO AC & HS No Start Date 02/01/2012 Inactive Lyrica 50 mg Cap RxNorm: 168080 1 Capsule(s) PO TID No Start Date 02/01/2012 Inactive Fish Oil Oral RxNorm: Oral No Start Date Inactive Carafate 1 gram Tab RxNorm: 052586 1 Gram(s) PO AC & HS 1gm before meals and at bedtime No Start Date 02/01/2012 Inactive Zofran 4 mg tablet RxNorm: 447460 1 Tablet(s) PO TID as needed No Start Date 02/25/2017 Inactive metoprolol tartrate 25 mg tablet RxNorm: 607322 1 Tablet(s) PO daily No Start Date 03/15/2013 Inactive colestipol 1 gram Tab RxNorm: 5132355 1 Gram(s) PO daily No Start Date 08/31/2016 Inactive hydrochlorothiazide 25 mg Tab RxNorm: 330178 1 Tablet(s) PO daily No Start Date 01/25/2012 Inactive acyclovir 400 mg Tab RxNorm: 549388 1 Tablet(s) PO QID QID x 10 days then BID No Start Date 02/01/2012 Inactive Mobic 15 mg Tab RxNorm : 912591 1 Tablet(s) PO daily No Start Date 05/07/2011 Inactive hydrochlorothiazide 25 mg Tab RxNorm: 234210 1 Tablet(s) PO daily No Start Date 07/27/2011 Inactive isosorbide mononitrate ER 30 mg 24 hr Tab RxNorm: 375312 1 Tablet(s) PO daily No Start Date 01/31/2012 Inactive Lipitor 10 mg Tab RxNorm: 563184 1 Tablet(s) PO daily No Start Date 08/18/2011 Inactive alprazolam 1 mg Tab RxNorm: 355324 1 Tablet(s) PO PRN 1mg tid prn No Start Date 06/15/2011 Inactive Wellbutrin SR 150 mg Tab RxNorm: 734985 1 Tablet(s) PO BID No Start Date 02/01/2012 Inactive Medication Administered Medication Codes Instructions Start Date Status cyanocobalamin (vit B-12) 1,000 mcg/mL injection solution RxNorm: 374168 1Milliliter 05/27/2017 No longer Active cyanocobalamin (vit B-12) 1,000 mcg/mL injection solution RxNorm: 093646 1Milliliter 04/27/2017 No longer Active cyanocobalamin (vit B-12) 1,000 mcg/mL injection solution RxNorm: 237603 1Milliliter 04/09/2017 No longer Active cyanocobalamin (vit B-12) 1,000 mcg/mL injection solution RxNorm: 605972 Milliliter 03/23/2017 No longer Active cyanocobalamin (vit B-12) 1,000 mcg/mL injection solution RxNorm: 522094 Milliliter 03/11/2017 No longer Active Kenalog 40 mg/mL suspension for injection RxNorm: 6611225 1Milliliter 02/22/2017 No longer Active cyanocobalamin (vit B-12) 1,000 mcg/mL injection solution RxNorm: 091801 1Milliliter 10/14/2016 No longer Active cyanocobalamin (vit B-12) 1,000 mcg/mL injection solution RxNorm: 653637 Milliliter 09/16/2016 No longer Active cyanocobalamin (vit B-12) 1,000 mcg/mL injection solution RxNorm: 921411 1Milliliter 08/11/2016 No longer Active cyanocobalamin (vit B-12) 1,000 mcg/mL injection solution RxNorm: 743387 Milliliter 12/03/2015 No longer Active cyanocobalamin (vit B-12) 1,000 mcg/mL injection solution RxNorm: 886194 Milliliter 04/12/2015 No longer Active cyanocobalamin (vit B-12) 1,000 mcg/mL injection solution RxNorm: 587633 Milliliter 01/22/2015 No longer Active Vitamin B-12 1,000 mcg/mL injection solution RxNorm: 650277 1Milliliter 01/08/2015 No longer Active Kenalog 40 mg/mL suspension for injection RxNorm: 9316272 1Milliliter 01/08/2015 No longer Active cyanocobalamin (vit B-12) 1,000 mcg/mL injection solution RxNorm: 059268 Milliliter 11/28/2014 No longer Active cyanocobalamin (vit B-12) 1,000 mcg/mL injection solution RxNorm: 073796 Milliliter 10/04/2014 No longer Active cyanocobalamin (vit B-12) 1,000 mcg/mL injection solution RxNorm: 571805 Milliliter 09/10/2014 No longer Active cyanocobalamin (vit B-12) 1,000 mcg/mL injection solution RxNorm: 490929 Milliliter 08/06/2014 No longer Active cyanocobalamin (vit B-12) 1,000 mcg/mL injection solution RxNorm: 904635 Milliliter 07/12/2014 No longer Active cyanocobalamin (vit B-12) 1,000 mcg/mL injection solution RxNorm: 904394 1Milliliter 06/28/2014 No longer Active cyanocobalamin (vit B-12) 1,000 mcg/mL injection solution RxNorm: 692267 Milliliter 06/14/2014 No longer Active cyanocobalamin (vit B-12) 1,000 mcg/mL injection solution RxNorm: 094386 Milliliter 05/31/2014 No longer Active cyanocobalamin (vit B-12) 1,000 mcg/mL injection solution RxNorm: 638566 Milliliter 05/16/2014 No longer Active cyanocobalamin (vit B-12) 1,000 mcg/mL injection solution RxNorm: 163006 1Milliliter 04/05/2014 No longer Active cyanocobalamin (vit B-12) 1,000 mcg/mL injection solution RxNorm: 583551 Milliliter 02/01/2014 No longer Active cyanocobalamin (vit B-12) 1,000 mcg/mL injection solution RxNorm: 275348 Milliliter 12/29/2013 No longer Active ketorolac 60 mg/2 mL IM RxNorm: 169307 1Milliliter 04/18/2013 No longer Active Kenalog 40 mg/mL Susp for Injection RxNorm: 4216396 Milliliter 06/27/2012 No longer Active Kenalog 40 mg/mL Susp for Injection RxNorm: 9912904 1Milliliter 06/06/2012 No longer Active Vitamin B-12 1,000 mcg/mL Injection RxNorm: 779678 Milliliter 02/08/2012 No longer Active Rocephin 500 mg Solution for Injection RxNorm: 261539 02/01/2012 No longer Active Kenalog 40 mg/mL Susp for Injection RxNorm: 8497834 1Milliliter 10/20/2011 No longer Active ketorolac 60 mg/2 mL IM RxNorm: 744873 Milliliter 07/15/2011 No longer Active ketorolac 60 mg/2 mL IM RxNorm: 077881 Milliliter 07/02/2011 No longer Active Immunizations Vaccine [...] ref lab 12/25/2016 Vitamin D 25 Oh [id number] VITAMIN D, 25 HYDROXY 30.42 ng/mL Cbc [...] 91.7 fl 08/11/2016 Cbc With Differential Ord2 [place]% 8.4 % 08/11/2016 Cbc With Differential Ord2 [...] 1.87 K/ul 08/11/2016 Cbc With Differential Ord2 [place] ABS# 0.6 K/ul 08/11/2016 Cbc With Differential Ord2 Eos ABS# 0.1 K/ul 08/11/2016 Cbc With Differential Ord2 Baso ABS# 0.0 K/ul 08/11/2016 Tsh Ord6 hTSH II 0.90 uIU/mL 08/11/2016 Iron Ord72 Iron 135 ug/dl 08/11/2016 Ferritin Ord22 FERRITIN 135.3 ng/mL 08/11/2016 B12 Lbm883 B12 >1500.00 pg/ml 08/11/2016 Comp Metabolic Zeu878 NA 138 mEq/L 08/11/2016 Comp Metabolic Mmr460 K 4.6 mEq/L 08/11/2016 Comp Metabolic Ljm426 CL 102 mEq/L 08/11/2016 Comp Metabolic Ntj756 CO2 29.0 mEq/L 08/11/2016 Comp Metabolic Rcc138 ANION GAP 12 08/11/2016 Comp Metabolic Wig504 GLUCOSE 83 mg/dL 08/11/2016 Comp Metabolic Wsb529 Creat 1.0 mg/dL 08/11/2016 Comp Metabolic Jrl372 eGFR 60 ml/min/1.73m2 08/11/2016 Comp Metabolic Rvp060 BUN 14 mg/dL 08/11/2016 Comp Metabolic Lao394 B/C Ratio 14.6 Ratio 08/11/2016 Comp Metabolic Eci175 CALCIUM 10.2 mg/dL 08/11/2016 Comp Metabolic Khd881 ALK PHOS 69 U/L 08/11/2016 Comp Metabolic Qmp187 AST(SGOT) 15 U/L 08/11/2016 Comp Metabolic Oaq626 ALT(SGPT) 12 U/L 08/11/2016 Comp Metabolic Fso368 BILI T 1.3 mg/dL 08/11/2016 Comp Metabolic Fym815 ALBUMIN 4.7 g/dL 08/11/2016 Comp Metabolic Hwn990 TPRO 7.3 g/dL 08/11/2016 Comp Metabolic Rqa499 GLOB 2.6 g/dL 08/11/2016 Comp Metabolic Ocx814 A/G Ratio 1.9 Ratio 08/11/2016 Comp Metabolic Ifr067 Osmo 275 mOsmo 08/11/2016 Culture Urine [id number] URINE CULTURE SEE NOTES 06/01/2016 Culture Urine [id number] Continued Results 06/01/2016 Urine Culture Ucult Complete [...] Ord15 CALCIUM 9.6 mg/dL 05/18/2016 Comp Metabolic Wyd650 NA 143 mEq/L 04/28/2016 Comp Metabolic Vtf593 K 3.3 mEq/L 04/28/2016 Comp Metabolic Gcp652 CL 108 mEq/L 04/28/2016 Comp Metabolic Aor906 CO2 27.0 mEq/L 04/28/2016 Comp Metabolic Fbc874 ANION GAP 11 04/28/2016 Comp Metabolic Icp614 GLUCOSE 103 mg/dL 04/28/2016 Comp Metabolic Ivq273 Creat 0.8 mg/dL 04/28/2016 Comp Metabolic Fnn907 eGFR 79 ml/min/1.73m2 04/28/2016 Comp Metabolic Oqc838 BUN 11 mg/dL 04/28/2016 Comp Metabolic Nrn516 B/C Ratio 14.5 Ratio 04/28/2016 Comp Metabolic Ezf675 CALCIUM 9.1 mg/dL 04/28/2016 Comp Metabolic Mmn329 ALK PHOS 60 U/L 04/28/2016 Comp Metabolic Rwn359 AST(SGOT) 15 U/L 04/28/2016 Comp Metabolic Pap648 ALT(SGPT) 13 U/L 04/28/2016 Comp Metabolic Ila666 BILI T 1.0 mg/dL 04/28/2016 Comp Metabolic Ioj843 ALBUMIN 4.1 g/dL 04/28/2016 Comp Metabolic Dnf141 TPRO 6.5 g/dL 04/28/2016 Comp Metabolic Lnp266 GLOB 2.4 g/dL 04/28/2016 Comp Metabolic Bth932 A/G Ratio 1.7 Ratio 04/28/2016 Comp Metabolic Ksv669 Osmo 285 mOsmo 04/28/2016 Cbc With Differential [...] 26.8 % 04/28/2016 Cbc With Differential Ord2 [place]% 9.2 % 04/28/2016 Cbc With Differential Ord2 [...] 1.40 K/ul 04/28/2016 Cbc With Differential Ord2 [place] ABS# 0.5 K/ul 04/28/2016 Cbc With Differential Ord2 Eos ABS# 0.2 K/ul 04/28/2016 Cbc With Differential Ord2 Baso ABS# 0.0 K/ul 04/28/2016 Lipid Ord30 CHOL 131 mg/dL 04/28/2016 Lipid Ord30 HDL 36.0 mg/dl 04/28/2016 Lipid Ord30 TRIG 134 mg/dL 04/28/2016 Lipid Ord30 LDL 68 mg/dL 04/28/2016 Lipid Ord30 C/HDL 3.6 Ratio 04/28/2016 Tsh Ord6 hTSH II 1.10 uIU/mL 04/28/2016 Culture Urine [id number] URINE CULTURE SEE NOTES 03/16/2016 Culture Urine [id number] Continued Results 03/16/2016 Urine Culture Ucult Complete >100,000 col/ml aerobic growth sent to ref lab 03/14/2016 Lipid Ord30 CHOL 226 mg/dL 10/15/2015 Lipid Ord30 HDL 44.0 mg/dl 10/15/2015 Lipid Ord30 TRIG 220 mg/dL 10/15/2015 Lipid Ord30 LDL 138 mg/dL 10/15/2015 Lipid Ord30 C/HDL 5.1 Ratio 10/15/2015 Comp Metabolic Hss397 NA 139 mEq/L 10/15/2015 Comp Metabolic Pjm181 K 4.2 mEq/L 10/15/2015 Comp Metabolic Kon544 CL 104 mEq/L 10/15/2015 Comp Metabolic Nde542 CO2 25.0 mEq/L 10/15/2015 Comp Metabolic Evd058 ANION GAP 14 10/15/2015 Comp Metabolic Prc665 GLUCOSE 114 mg/dL 10/15/2015 Comp Metabolic Ytr468 Creat 1.0 mg/dL 10/15/2015 Comp Metabolic Qfj950 eGFR 59 ml/min/1.73m2 10/15/2015 Comp Metabolic Ywq171 BUN 18 mg/dL 10/15/2015 Comp Metabolic Rna342 B/C Ratio 18.4 Ratio 10/15/2015 Comp Metabolic Fov540 CALCIUM 9.8 mg/dL 10/15/2015 Comp Metabolic Tlz425 ALK PHOS 59 U/L 10/15/2015 Comp Metabolic Hnc280 AST(SGOT) 14 U/L 10/15/2015 Comp Metabolic Qeg107 ALT(SGPT) 13 U/L 10/15/2015 Comp Metabolic Dad005 BILI T 0.9 mg/dL 10/15/2015 Comp Metabolic Kcv910 ALBUMIN 4.2 g/dL 10/15/2015 Comp Metabolic Blk754 TPRO 6.6 g/dL 10/15/2015 Comp Metabolic Zpz109 GLOB 2.4 g/dL 10/15/2015 Comp Metabolic Ehe451 A/G Ratio 1.8 Ratio 10/15/2015 Comp Metabolic Kio396 Osmo 280 mOsmo 10/15/2015 Tsh Ord6 hTSH [...] 29.7 pg 10/15/2015 Cbc With Differential Ord2 [place]% 8.5 % 10/15/2015 Cbc With Differential Ord2 [...] 1.95 K/ul 10/15/2015 Cbc With Differential Ord2 [place] ABS# 0.6 K/ul 10/15/2015 Cbc With Differential Ord2 Eos ABS# 0.2 K/ul 10/15/2015 Cbc With Differential Ord2 Baso ABS# 0.0 K/ul 10/15/2015 Cbc With Differential Ord2 New Analyzer Notice Please note new ref ranges starting 09-04-2015 due to implemntation of new five part differential hematolgy analyzer. 10/15/2015 Comp Metabolic Pwn597 NA 136 mEq/L 04/12/2015 Comp Metabolic Phx937 K 4.4 mEq/L 04/12/2015 Comp Metabolic Ktu513 CL 102 mEq/L 04/12/2015 Comp Metabolic Aqb663 CO2 28.0 mEq/L 04/12/2015 Comp Metabolic Yoa283 ANION GAP 10 04/12/2015 Comp Metabolic Qcp476 GLUCOSE 86 mg/dL 04/12/2015 Comp Metabolic Ije824 Creat 0.9 mg/dL 04/12/2015 Comp Metabolic Vfo916 eGFR 70 ml/min/1.73m2 04/12/2015 Comp Metabolic Bmw947 BUN 17 mg/dL 04/12/2015 Comp Metabolic Buq635 B/C Ratio 20.0 Ratio 04/12/2015 Comp Metabolic Kkf412 CALCIUM 9.6 mg/dL 04/12/2015 Comp Metabolic Vct285 ALK PHOS 60 U/L 04/12/2015 Comp Metabolic Jlz843 AST(SGOT) 16 U/L 04/12/2015 Comp Metabolic Bjz495 ALT(SGPT) 14 U/L 04/12/2015 Comp Metabolic Yyh055 BILI T 1.0 mg/dL 04/12/2015 Comp Metabolic Rxi849 ALBUMIN 4.4 g/dL 04/12/2015 Comp Metabolic Ylz845 TPRO 6.8 g/dL 04/12/2015 Comp Metabolic Lhv271 GLOB 2.4 g/dL 04/12/2015 Comp Metabolic Nbi454 A/G Ratio 1.8 Ratio 04/12/2015 Comp Metabolic Byw112 Osmo 273 mOsmo 04/12/2015 Cbc With Differential [...] Differential Ord2 RDW 15.0 % 04/12/2015 B12 Obt805 B12 >1500.00 pg/ml 04/12/2015 Tsh Ord6 hTSH II 1.17 uIU/mL 04/12/2015 Vitamin D 25 Oh [id number] VITAMIN D, 25 HYDROXY 62.36 ng/mL A1C HPLC [id number] A1C HPLC 76424-8 6.1 % 01/24/2013 TSH 9656385 TSH 1.854 uIU/ML 01/23/2013 GFR CALC 9211136 GFR AA >60 ML/MIN 01/23/2013 GFR CALC 8845131 GFR NON-AA >60 ML/MIN 01/23/2013 CBC 7859516 WBC 8.7 10e9/L 01/23/2013 CBC 0823308 RBC 3.84 10e12/L 01/23/2013 CBC 1937235 HGB 11.3 g/dL 01/23/2013 CBC 2468564 HCT DET 34.5 % 01/23/2013 CBC 6675780 MCV 89.8 fL 01/23/2013 CBC 3336341 MCH 29.4 pg 01/23/2013 CBC 6332358 MCHC 32.8 g/dL 01/23/2013 CBC 3470667 PLT 384 10e9/L 01/23/2013 CBC 8042573 MPV 10.7 fL 01/23/2013 CBC 7126265 CHRISTIANNE % 70.2 % 01/23/2013 CBC 0768756 LY % 19.2 % 01/23/2013 CBC 2029606 MON % 6.9 % 01/23/2013 CBC 1010947 EOS % 3.5 % 01/23/2013 CBC 7504512 BASO % 0.2 % 01/23/2013 CBC 1029216 RDW 13.0 % 01/23/2013 CBC 0262627 ABS CHRISTIANNE 6.11 10e9/L 01/23/2013 CBC 4060338 ABS LYMPH 1.67 10e9/L 01/23/2013 CBC 8788384 ABS MONO 0.60 10e9/L 01/23/2013 CBC 3296659 ABS EOS 0.30 10e9/L 01/23/2013 CBC 5021858 ABS BASO 0.02 10e9/L 01/23/2013 CBC 3427543 RDW-SD 42.1 fL 01/23/2013 CHEM 14 4114636 AST 11 U/L 01/23/2013 CHEM 14 2433316 ALT 16 IU/L 01/23/2013 CHEM 14 8947094 BUN 10 MG/DL 01/23/2013 CHEM 14 3372802 ALBUMIN 4.4 GM/DL 01/23/2013 CHEM 14 0803586 CHLORIDE 104 MMOL/L 01/23/2013 CHEM 14 6762211 BILI TOT 1.1 MG/DL 01/23/2013 CHEM 14 3713680 ALK PHOS 74 U/L 01/23/2013 CHEM 14 3126210 SODIUM 141 MMOL/L 01/23/2013 CHEM 14 5179025 CREATININE 0.76 MG/DL 01/23/2013 CHEM 14 6295696 CALCIUM 9.4 MG/DL 01/23/2013 CHEM 14 5531174 POTASSIUM 3.4 MMOL/L 01/23/2013 CHEM 14 6759278 PROT TOT 6.6 GM/DL 01/23/2013 CHEM 14 3088727 GLUCOSE 107 MG/DL 01/23/2013 CHEM 14 4443677 BICARB 28 MMOL/L 01/23/2013 CHEM 14 9770083 ANION GAP 9 MEQ/L 01/23/2013 ESR 4492964 ESR 28 MM/HR 12/28/2012 CRP 3544768 CRP 0.5 MG/DL 12/28/2012 VIT B 12 1316369 VIT B 12 760 PG/ML 12/28/2012 URIC ACID 7675944 URIC ACID 4.4 MG/DL 12/27/2012 GFR CALC 3855601 GFR AA >60 ML/MIN 12/27/2012 GFR CALC 2600398 GFR NON-AA >60 ML/MIN 12/27/2012 CHEM 14 8496095 AST 16 U/L 12/27/2012 CHEM 14 5644006 ALT 17 IU/L 12/27/2012 CHEM 14 4308212 BUN 8 MG/DL 12/27/2012 CHEM 14 4031113 ALBUMIN 4.4 GM/DL 12/27/2012 CHEM 14 3750177 CHLORIDE 104 MMOL/L 12/27/2012 CHEM 14 1039894 BILI TOT 1.0 MG/DL 12/27/2012 CHEM 14 5085950 ALK PHOS 79 U/L 12/27/2012 CHEM 14 8429980 SODIUM 142 MMOL/L 12/27/2012 CHEM 14 4255153 CREATININE 0.72 MG/DL 12/27/2012 CHEM 14 7169672 CALCIUM 9.3 MG/DL 12/27/2012 CHEM 14 3092108 POTASSIUM 3.4 MMOL/L 12/27/2012 CHEM 14 0479612 PROT TOT 6.9 GM/DL 12/27/2012 CHEM 14 1537138 GLUCOSE 96 MG/DL 12/27/2012 CHEM 14 1979442 BICARB 32 MMOL/L 12/27/2012 CHEM 14 8371551 ANION GAP 6 MEQ/L 12/27/2012 CBC 4457881 WBC 8.2 10e9/L 12/27/2012 CBC 1100451 RBC 3.75 10e12/L 12/27/2012 CBC 6049942 HGB 11.1 g/dL 12/27/2012 CBC 2088461 HCT DET 34.2 % 12/27/2012 CBC 9924197 MCV 91.2 fL 12/27/2012 CBC 1042393 MCH 29.6 pg 12/27/2012 CBC 8821058 MCHC 32.5 g/dL 12/27/2012 CBC 0980790 PLT 335 10e9/L 12/27/2012 CBC 4779974 MPV 10.7 fL 12/27/2012 CBC 9941353 CHRISTIANNE % 68.2 % 12/27/2012 CBC 6903845 LY % 22.0 % 12/27/2012 CBC 4398377 MON % 7.3 % 12/27/2012 CBC 2108487 EOS % 2.3 % 12/27/2012 CBC 1497497 BASO % 0.2 % 12/27/2012 CBC 6639547 RDW 12.8 % 12/27/2012 CBC 8954305 ABS CHRISTIANNE 5.59 10e9/L 12/27/2012 CBC 1719880 ABS LYMPH 1.80 10e9/L 12/27/2012 CBC 8444902 ABS MONO 0.60 10e9/L 12/27/2012 CBC 6423479 ABS EOS 0.19 10e9/L 12/27/2012 CBC 8997433 ABS BASO 0.02 10e9/L 12/27/2012 CBC 0540524 RDW-SD 41.4 fL 12/27/2012 A1C HPLC 8720098 A1C HPLC 24866-7 5.4 % 10/10/2012 LIPID GRP HDL TEST 45 MG/DL 10/07/2012 LIPID GRP TRIG 182 MG/DL 10/07/2012 LIPID GRP TEST LDL 94 MG/DL 10/07/2012 LIPID GRP CHOL 175 MG/DL 10/07/2012 LIPID GRP RCHOL/HDL 3.89 RATIO 10/07/2012 TSH 1468754 TSH 1.239 uIU/ML 10/07/2012 GFR CALC 0281044 GFR AA >60 ML/MIN 10/07/2012 GFR CALC 5868557 GFR NON-AA >60 ML/MIN 10/07/2012 CBC 5088883 WBC 7.1 10e9/L 10/07/2012 CBC 9470338 RBC 3.98 10e12/L 10/07/2012 CBC 7541250 HGB 11.8 g/dL 10/07/2012 CBC 6547552 HCT DET 36.0 % 10/07/2012 CBC 7082026 MCV 90.5 fL 10/07/2012 CBC 5021914 MCH 29.6 pg 10/07/2012 CBC 5534035 MCHC 32.8 g/dL 10/07/2012 CBC 1680825 PLT 333 10e9/L 10/07/2012 CBC 5883958 MPV 11.5 fL 10/07/2012 CBC 7398258 CHRISTIANNE % 65.7 % 10/07/2012 CBC 0962221 LY % 24.0 % 10/07/2012 CBC 0601120 MON % 7.4 % 10/07/2012 CBC 7875866 EOS % 2.5 % 10/07/2012 CBC 5143012 BASO % 0.4 % 10/07/2012 CBC 3830275 RDW 12.7 % 10/07/2012 CBC 0427193 ABS CHRISTIANNE 4.66 10e9/L 10/07/2012 CBC 1833528 ABS LYMPH 1.70 10e9/L 10/07/2012 CBC 6089717 ABS MONO 0.53 10e9/L 10/07/2012 CBC 5283453 ABS EOS 0.18 10e9/L 10/07/2012 CBC 8842614 ABS BASO 0.03 10e9/L 10/07/2012 CBC 2221648 RDW-SD 41.3 fL 10/07/2012 CHEM 14 7881903 AST 15 U/L 10/07/2012 CHEM 14 8323817 ALT 15 IU/L 10/07/2012 CHEM 14 0172391 BUN 7 MG/DL 10/07/2012 CHEM 14 1603209 ALBUMIN 4.3 GM/DL 10/07/2012 CHEM 14 3123521 CHLORIDE 103 MMOL/L 10/07/2012 CHEM 14 8074390 BILI TOT 1.2 MG/DL 10/07/2012 CHEM 14 2025752 ALK PHOS 83 U/L 10/07/2012 CHEM 14 9411941 SODIUM 139 MMOL/L 10/07/2012 CHEM 14 4050466 CREATININE 0.74 MG/DL 10/07/2012 CHEM 14 2099472 CALCIUM 9.4 MG/DL 10/07/2012 CHEM 14 5030994 POTASSIUM 3.6 MMOL/L 10/07/2012 CHEM 14 1861962 PROT TOT 6.6 GM/DL 10/07/2012 CHEM 14 7182857 GLUCOSE 114 MG/DL 10/07/2012 CHEM 14 9951631 BICARB 25 MMOL/L 10/07/2012 CHEM 14 1627989 ANION GAP 11 MEQ/L 10/07/2012 MAGNESIUM 7283858 MAGNESIUM 1.5 MEQ/L 02/02/2012 GFR CALC 5077862 GFR AA >60 ML/MIN 02/01/2012 GFR CALC 5981078 GFR NON-AA 53.0L ML/MIN 02/01/2012 CHEM 14 2903234 AST 12 U/L 02/01/2012 CHEM 14 6986428 ALT 12 IU/L 02/01/2012 CHEM 14 3218674 BUN 24 MG/DL 02/01/2012 CHEM 14 8884233 ALBUMIN 4.3 GM/DL 02/01/2012 CHEM 14 1366876 CHLORIDE 108 MMOL/L 02/01/2012 CHEM 14 0257181 BILI TOT 0.6 MG/DL 02/01/2012 CHEM 14 1960234 ALK PHOS 69 U/L 02/01/2012 CHEM 14 4778335 SODIUM 142 MMOL/L 02/01/2012 CHEM 14 7723499 CREATININE 1.03 MG/DL 02/01/2012 CHEM 14 7620215 CALCIUM 9.5 MG/DL 02/01/2012 CHEM 14 0642115 POTASSIUM 5.1 MMOL/L 02/01/2012 CHEM 14 1114642 PROT TOT 6.7 GM/DL 02/01/2012 CHEM 14 5246329 GLUCOSE 112 MG/DL 02/01/2012 CHEM 14 3355361 BICARB 22 MMOL/L 02/01/2012 CHEM 14 3179919 ANION GAP 12 MEQ/L 02/01/2012 CBC 3338035 WBC 9.6 10e9/L 01/22/2012 CBC 0628690 RBC 3.71 10e12/L 01/22/2012 CBC 6278851 HGB 10.8 g/dL 01/22/2012 CBC 0063232 HCT DET 33.4 % 01/22/2012 CBC 7738082 MCV 90.0 fL 01/22/2012 CBC 9464927 MCH 29.1 pg 01/22/2012 CBC 3110736 MCHC 32.3 g/dL 01/22/2012 CBC 0356164 PLT 359 10e9/L 01/22/2012 CBC 6638752 MPV 10.4 fL 01/22/2012 CBC 3833854 CHRISTIANNE % 66.2 % 01/22/2012 CBC 3466988 LY % 22.4 % 01/22/2012 CBC 9910691 MON % 8.4 % 01/22/2012 CBC 6465281 EOS % 2.8 % 01/22/2012 CBC 5775442 BASO % 0.2 % 01/22/2012 CBC 2790127 RDW 14.2 % 01/22/2012 CBC 9145585 ABS CHRISTIANNE 6.36 10e9/L 01/22/2012 CBC 8298676 ABS LYMPH 2.15 10e9/L 01/22/2012 CBC 0114856 ABS MONO 0.81 10e9/L 01/22/2012 CBC 8983717 ABS EOS 0.27 10e9/L 01/22/2012 CBC 5040866 ABS BASO 0.02 10e9/L 01/22/2012 CBC 7987403 RDW-SD 44.8 fL 01/22/2012 TSH 5533077 TSH 1.539 uIU/ML 01/22/2012 GFR CALC 9208297 GFR AA 26.0L ML/MIN 01/22/2012 GFR CALC 3283328 GFR NON-AA 22.0 ML/MIN 01/22/2012 CHEM 14 7172898 AST 13 U/L 01/22/2012 CHEM 14 5612330 ALT 13 IU/L 01/22/2012 CHEM 14 3829430 BUN 42 MG/DL 01/22/2012 CHEM 14 9248855 ALBUMIN 4.4 GM/DL 01/22/2012 CHEM 14 8418573 CHLORIDE 103 MMOL/L 01/22/2012 CHEM 14 8482282 BILI TOT 0.8 MG/DL 01/22/2012 CHEM 14 5964529 ALK PHOS 82 U/L 01/22/2012 CHEM 14 0319614 SODIUM 138 MMOL/L 01/22/2012 CHEM 14 8238155 CREATININE 2.23 MG/DL 01/22/2012 CHEM 14 3750493 CALCIUM 9.7 MG/DL 01/22/2012 CHEM 14 8195731 POTASSIUM 4.9 MMOL/L 01/22/2012 CHEM 14 4951001 PROT TOT 7.1 GM/DL 01/22/2012 CHEM 14 4152953 GLUCOSE 92 MG/DL 01/22/2012 CHEM 14 3375869 BICARB 20 MMOL/L 01/22/2012 CHEM 14 2783430 ANION GAP 15 MEQ/L 01/22/2012 LIPID GRP HDL TEST 35 MG/DL 01/22/2012 LIPID GRP TRIG 320 MG/DL 01/22/2012 LIPID GRP TEST LDL 89 MG/DL 01/22/2012 LIPID GRP CHOL 188 MG/DL 01/22/2012 LIPID GRP RCHOL/HDL 5.37 RATIO 01/22/2012 URINALYSIS NONAUTO W/O SCOPE 27238 Specific [place] 1.030 DateTime(Free Text in Aprima) URINALYSIS NONAUTO W/O SCOPE 54058 PH 6 DateTime(Free Text in Aprima) URINALYSIS NONAUTO W/O SCOPE 40878 GLUCOSE neg DateTime( Free Text in Aprima) URINALYSIS NONAUTO W/O SCOPE 51920 Protein neg DateTime( Free Text in Aprima) URINALYSIS NONAUTO W/O SCOPE 46725 Blood neg DateTime(Free Text in Aprima) URINALYSIS NONAUTO W/O SCOPE 63268 Bilirubin neg DateTime(Free Text in Apr) URINALYSIS NONAUTO W/O SCOPE 31921 Ketones neg DateTime( Free Text in Apr) URINALYSIS NONAUTO W/O SCOPE 87941 Urobilinogen neg DateTime(Free Text in Aprima) URINALYSIS NONAUTO W/O SCOPE 65415 Nitrite neg DateTime( Free Text in Aprima) URINALYSIS NONAUTO W/O SCOPE 33876 Leukocytes neg DateTime(Free Text in ) Review [...] NO PRSV 4 ABDOULAYE 3 YRS+ CPT-4: 42645 05/27/2017 ADMIN INFLUENZA VIRUS VAC CPT-4: G0008 05/27/2017 THER/PROPH/DIAG INJ SC/IM CPT-4: 28776 05/27/2017 VITAMIN B12 INJECTION CPT-4: J3420 05/27/2017 THER/PROPH/DIAG INJ SC/IM CPT-4: 28940 04/27/2017 VITAMIN B12 INJECTION CPT-4: J3420 04/27/2017 THER/PROPH/DIAG INJ SC/IM CPT-4: 63071 04/09/2017 VITAMIN B12 INJECTION CPT-4: J3420 04/09/2017 THER/PROPH/DIAG INJ SC/IM CPT-4: 57171 03/23/2017 VITAMIN B12 INJECTION CPT-4: J3420 03/23/2017 THER/PROPH/DIAG INJ SC/IM CPT-4: 00588 03/11/2017 VITAMIN B12 INJECTION CPT-4: J3420 03/11/2017 URINALYSIS NONAUTO W/O SCOPE CPT-4: 48353 02/22/2017 THER/PROPH/DIAG INJ SC/IM CPT-4: 99670 02/22/2017 TRIAMCINOLONE ACET INJ NOS CPT-4: J3301 02/22/2017 PPPS, SUBSEQ VISIT CPT -4: G0439 12/28/2016 URINALYSIS NONAUTO W/O SCOPE CPT-4: 89788 12/24/2016 THER/PROPH/DIAG INJ SC/IM CPT-4: 93421 10/14/2016 VITAMIN B12 INJECTION CPT-4: J3420 10/14/2016 THER/PROPH/DIAG INJ SC/IM CPT-4: 04506 09/16/2016 VITAMIN B12 INJECTION CPT-4: J3420 09/16/2016 THER/PROPH/DIAG INJ SC/IM CPT-4: 36079 08/11/2016 VITAMIN B12 INJECTION CPT-4: J3420 08/11/2016 URINALYSIS NONAUTO W/O SCOPE CPT-4: 90731 05/27/2016 ADMIN INFLUENZA VIRUS VAC CPT-4: G0008 04/23/2016 FLU VACC PRSV FREE INC ANTIG CPT-4: 78844 04/23/2016 URINALYSIS NONAUTO W/O SCOPE CPT-4: 35583 03/13/2016 URINALYSIS NONAUTO W/O SCOPE CPT-4: 48945 03/03/2016 VITAMIN B12 INJECTION CPT-4: J3420 12/03/2015 THER/PROPH/DIAG INJ SC/IM CPT-4: 23375 04/12/2015 VITAMIN B12 INJECTION CPT-4: J3420 04/12/2015 VITAMIN B12 INJECTION CPT-4: J3420 01/22/2015 THER/PROPH/DIAG INJ SC/IM CPT-4: 81120 01/22/2015 TRIAMCINOLONE ACET INJ NOS CPT-4: J3301 01/08/2015 THER/PROPH/DIAG INJ SC/IM CPT-4: 09525 01/08/2015 VITAMIN B12 INJECTION CPT-4: J3420 01/08/2015 THER/PROPH/DIAG INJ SC/IM CPT-4: 85765 11/28/2014 VITAMIN B12 INJECTION CPT-4: J3420 11/28/2014 THER/PROPH/DIAG INJ SC/IM CPT-4: 54745 10/04/2014 VITAMIN B12 INJECTION CPT-4: J3420 10/04/2014 VITAMIN B12 INJECTION CPT-4: J3420 09/10/2014 ADMIN PNEUMOCOCCAL VACCINE SNOMED CT: 15937533 CPT-4: G0009 08/06/2014 Pneumococcal Polysaccharide Vaccine, 23-Valent, Ad CPT-4: 34388 08/06/2014 THER/PROPH/DIAG INJ SC/IM CPT-4: 63191 08/06/2014 VITAMIN B12 INJECTION CPT-4: J3420 08/06/2014 THER/PROPH/DIAG INJ SC/IM CPT-4: 21381 07/12/2014 VITAMIN B12 INJECTION CPT-4: J3420 07/12/2014 THER/PROPH/DIAG INJ SC/IM CPT-4: 13684 06/28/2014 VITAMIN B12 INJECTION CPT-4: J3420 06/28/2014 THER/PROPH/DIAG INJ SC/IM CPT-4: 17320 06/14/2014 VITAMIN B12 INJECTION CPT-4: J3420 06/14/2014 THER/PROPH/DIAG INJ SC/IM CPT-4: 79591 05/31/2014 VITAMIN B12 INJECTION CPT-4: J3420 05/31/2014 ADMIN INFLUENZA VIRUS VAC CPT-4: G0008 05/16/2014 FLU VAC NO PRSV 4 ABDOULAYE 3 YRS+ Assigned to/Sandrine Velasquez CPT-4: 49665Vruobjn 05/16/2014 THER/PROPH/DIAG INJ SC/IM CPT-4: 94481 05/16/2014 VITAMIN B12 INJECTION CPT-4: J3420 05/16/2014 THER/PROPH/DIAG INJ SC/IM CPT-4: 88911 04/05/2014 VITAMIN B12 INJECTION CPT-4: J3420 04/05/2014 THER/PROPH/DIAG INJ SC/IM CPT-4: 02919 02/01/2014 VITAMIN B12 INJECTION CPT-4: J3420 02/01/2014 THER/PROPH/DIAG INJ SC/IM CPT-4: 32213 12/29/2013 VITAMIN B12 INJECTION CPT-4: J3420 12/29/2013 TRIAMCINOLONE ACET INJ NOS CPT-4: J3301 05/18/2013 DRAIN/INJECT JOINT/BURSA CPT-4: 25598 05/18/2013 THER/PROPH/DIAG INJ SC/IM CPT-4: 89806 04/18/2013 KETOROLAC TROMETHAMINE INJ CPT-4: J1885 04/18/2013 PRESCRIP TRANSMIT VIA ERX SY CPT-4: G8553 03/16/2013 PRESCRIP TRANSMIT VIA ERX SY CPT-4: G8553 01/26/2013 ROUTINE VENIPUNCTURE CPT-4: 84194 01/23/2013 ROUTINE VENIPUNCTURE CPT-4: 15508 12/27/2012 PRESCRIP TRANSMIT VIA ERX SY CPT-4: G8553 12/27/2012 ROUTINE VENIPUNCTURE CPT-4: 75515 10/07/2012 PRESCRIP TRANSMIT VIA ERX SY CPT-4: G8553 09/21/2012 PRESCRIP TRANSMIT VIA ERX SY CPT-4: G8553 08/02/2012 TRIAMCINOLONE ACET INJ NOS CPT-4: J3301 06/27/2012 PRESCRIP TRANSMIT VIA ERX SY CPT-4: G8553 06/27/2012 TRIAMCINOLONE ACET INJ NOS CPT-4: J3301 06/06/2012 DRAIN/INJECT JOINT/BURSA CPT-4: 42917 06/06/2012 VITAMIN B12 INJECTION CPT-4: J3420 02/08/2012 URINALYSIS NONAUTO W/O SCOPE CPT-4: 14810 02/08/2012 ROUTINE VENIPUNCTURE CPT-4: 60955 02/01/2012 ROCEPHIN, PER 250 MG CPT-4: J0696 02/01/2012 PRESCRIP TRANSMIT VIA ERX SY CPT-4: G8553 02/01/2012 THER/PROPH/DIAG INJ SC/IM CPT-4: 57974 02/01/2012 ROUTINE VENIPUNCTURE CPT-4: 54134 01/22/2012 PRESCRIP TRANSMIT VIA ERX SY CPT-4: G8553 01/22/2012 TRIAMCINOLONE ACET INJ NOS CPT-4: J3301 10/19/2011 CA SCREEN;PELVIC/BREAST EXAM CPT-4: G0101 09/09/2011 KETOROLAC TROMETHAMINE INJ CPT-4: J1885 07/15/2011 THER/PROPH/DIAG INJ SC/IM CPT-4: 89444 07/15/2011 THER/PROPH/DIAG INJ SC/IM CPT-4: 86479 07/02/2011 KETOROLAC TROMETHAMINE INJ CPT-4: J1885 07/02/2011 KETOROLAC TROMETHAMINE INJ CPT-4: J1885 06/24/2011 THER/PROPH/DIAG INJ SC/IM CPT-4: 74668 06/24/2011 Vital Signs Date Vital 09/09/2017 Blood Pressure 1: 158/96 Code : 8480-6 Heart Rate 1: 65 bpm SpO2: 96% 09/03/2017 Blood Pressure 1: 162/76 Code : 8480-6 BMI: 23.6 Code : 66127-9 Height: 5'5" Weight: 142 lbs 05/27/2017 Blood Pressure 1: 158/78 Code : 8480-6 BMI: 23.1 Code : 66792-5 Heart Rate 1 : 57 bpm Height: 5'5" SpO2: 99% Weight: 139 lbs 04/27/2017 Blood Pressure 1: 142/78 Code : 8480-6 Blood Pressure 1: 136/72 Code: 8480-6 BMI: 24.0 Code: 57711-9 Heart Rate 1: 69 bpm Height: 5'5" SpO2: 94% Weight: 144 lbs 03/09/2017 Blood Pressure 1: 138/80 Code : 8480-6 BMI: 23.5 Code : 84993-0 Heart Rate 1 : 76 bpm Height: 5'5" Weight: 141 lbs 4 oz 02/22/2017 Blood Pressure 1: 144/88 Code : 8480-6 BMI: 24.0 Code : 28496-9 Heart Rate 1 : 100 bpm Height: 5'5" SpO2: 92% Weight: 144 lbs 12/28/2016 Blood Pressure 1: 144/84 Code : 8480-6 BMI: 24.3 Code : 95920-8 Heart Rate 1 : 96 bpm Height: 5'5" SpO2: 97% Waist Measure (cm): 76 cm Weight: 146 lbs 12/24/2016 Blood Pressure 1: 148/86 Code : 8480-6 BMI: 24.3 Code : 42380-9 Heart Rate 1 : 93 bpm Height: 5'5" SpO2: 96% Weight: 146 lbs 10/06/2016 Blood Pressure 1: 144/72 Code : 8480-6 Heart Rate 1: 71 bpm Height: 5'5" SpO2: 98% 10/01/2016 Blood Pressure 1: 136/82 Code : 8480-6 Heart Rate 1: 62 bpm Height: 5'5" SpO2: 97% Weight: 09/01/2016 Blood Pressure 1: 130/66 Code : 8480-6 BMI: 23.8 Code : 19111-1 Heart Rate 1 : 70 bpm Height: 5'5" SpO2: 98% Weight: 143 lbs 08/11/2016 Blood Pressure 1: 140/80 Code : 8480-6 BMI: 24.0 Code : 82376-0 Height: 5'5" Weight: 144 lbs 8 oz 07/01/2016 Blood Pressure 1: 136/74 Code : 8480-6 BMI: 24.3 Code : 63144-0 Heart Rate 1 : 76 bpm Height: 5'5" SpO2: 97% Weight: 146 lbs 04/23/2016 Blood Pressure 1: 130/78 Code : 8480-6 BMI: 25.1 Code : 40389-0 Heart Rate 1 : 70 bpm Height: 5'5" SpO2: 97% Weight: 151 lbs 03/03/2016 Blood Pressure 1: 138/62 Code : 8480-6 BMI: 25.6 Code : 10055-4 Heart Rate 1 : 62 bpm Height: 5'5" SpO2: 99% Weight: 154 lbs 01/14/2016 Blood Pressure 1: 162/72 Code : 8480-6 BMI: 26.6 Code : 73725-4 Heart Rate 1 : 82 bpm Height: 5'5" SpO2: 98% Weight: 160 lbs 12/03/2015 Blood Pressure 1: 130/62 Code : 8480-6 BMI: 25.8 Code : 01860-5 Heart Rate 1 : 72 bpm Height: 5'5" SpO2: 98% Weight: 155 lbs 10/10/2015 Blood Pressure 1: 118/80 Code : 8480-6 BMI: 25.6 Code : 78782-3 Heart Rate 1 : 70 bpm Height: 5'5" SpO2: 98% Weight: 154 lbs 08/28/2015 Blood Pressure 1: 152/80 Code : 8480-6 BMI: 27.7 Code : 36523-4 Heart Rate 1 : 75 bpm Height: 5'5" SpO2: 98% Weight: 166 lbs 8 oz 06/12/2015 Blood Pressure 1: 142/64 Code : 8480-6 BMI: 27.5 Code : 50784-8 Heart Rate 1 : 66 bpm Height: 5'5" SpO2: 96% Weight: 165 lbs 05/09/2015 Blood Pressure 1: 122/70 Code : 8480-6 BMI: 27.3 Code : 68901-7 Heart Rate 1 : 69 bpm Height: 5'5" SpO2: 97% Weight: 164 lbs 04/12/2015 Blood Pressure 1: 122/62 Code : 8480-6 BMI: 27.6 Code : 75674-4 Heart Rate 1 : 69 bpm Height: 5'5" SpO2: 98% Weight: 166 lbs 03/12/2015 Blood Pressure 1: 108/70 Code : 8480-6 BMI: 26.8 Code : 41137-5 Heart Rate 1 : 73 bpm Height: 5'5" SpO2: 96% Weight: 161 lbs 01/08/2015 Blood Pressure 1: 136/76 Code : 8480-6 BMI: 28.8 Code : 30018-0 Heart Rate 1 : 73 bpm Height: 5'5" SpO2: 95% Weight: 173 lbs 10/04/2014 Blood Pressure 1: 138/86 Code : 8480-6 BMI: 29.0 Code : 47285-8 Heart Rate 1 : 76 bpm Height: 5'5" Weight: 174 lbs 09/10/2014 Blood Pressure 1: 110/60 Code : 8480-6 BMI: 29.6 Code : 56784-1 Heart Rate 1 : 75 bpm Height: 5'5" Weight: 178 lbs 08/06/2014 Blood Pressure 1: 138/78 Code : 8480-6 BMI: 28.6 Code : 96946-7 Heart Rate 1 : 76 bpm Height: 5'5" Weight: 172 lbs 07/12/2014 Blood Pressure 1: 126/82 Code : 8480-6 BMI: 28.5 Code : 31362-3 Heart Rate 1 : 72 bpm Height: 5'5" Weight: 171 lbs 05/16/2014 Blood Pressure 1: 110/62 Code : 8480-6 BMI: 29.0 Code : 48485-2 Heart Rate 1 : 74 bpm Height: 5'5" SpO2: 97% Weight: 174 lbs 04/05/2014 Blood Pressure 1: 142/80 Code : 8480-6 BMI: 29.6 Code : 57063-1 Heart Rate 1 : 60 bpm Height: 5'5" Weight: 178 lbs 03/05/2014 Blood Pressure 1: 118/70 Code : 8480-6 BMI: 30.8 Code : 56870-3 Heart Rate 1 : 64 bpm Height: 5'5" Weight: 185 lbs 02/01/2014 Blood Pressure 1: 118/60 Code : 8480-6 BMI: 30.6 Code : 59024-3 Heart Rate 1 : 60 bpm Height: 5'5" Weight: 184 lbs 12/07/2013 Blood Pressure 1: 106/58 Code : 8480-6 Heart Rate 1: 64 bpm Weight: 185 lbs 09/25/2013 Blood Pressure 1: 120/68 Code : 8480-6 BMI: 30.6 Code : 75163-5 Heart Rate 1 : 72 bpm Height: 5'5" Weight: 184 lbs 09/04/2013 Blood Pressure 1: 124/80 Code : 8480-6 BMI: 30.3 Code : 64383-1 Height: 5'5" Weight: 182 lbs 05/18/2013 Blood Pressure 1: 126/70 Code : 8480-6 Weight: 174 lbs 04/18/2013 Blood Pressure 1: 120/68 Code : 8480-6 BMI: 28.6 Code : 16747-8 Heart Rate 1 : 64 bpm Height: 5'5" Weight: 172 lbs 03/16/2013 Blood Pressure 1: 134/60 Code : 8480-6 BMI: 28.6 Code : 08303-2 Heart Rate 1 : 96 bpm Height: 5'5" Weight: 172 lbs 01/26/2013 Blood Pressure 1: 128/82 Code : 8480-6 BMI: 29.6 Code : 94547-4 Heart Rate 1 : 72 bpm Height: 5'5" Weight: 178 lbs 12/27/2012 Blood Pressure 1: 148/82 Code : 8480-6 Heart Rate 1: 76 bpm Weight: 179 lbs 10/11/2012 Blood Pressure 1: 130/80 Code : 8480-6 BMI: 30.5 Code : 71526-1 Heart Rate 1 : 68 bpm Height: 5'5" Weight: 183 lbs 09/21/2012 Blood Pressure 1: 142/86 Code : 8480-6 Heart Rate 1: 80 bpm Weight: 182 lbs 08/02/2012 Blood Pressure 1: 144/72 Code : 8480-6 Heart Rate 1: 72 bpm Temperature: 36.8 (C) / 98.2 (F) Weight: 179 lbs 06/27/2012 Blood Pressure 1: 136/84 Code : 8480-6 BMI: 29.5 Code : 60214-7 Heart Rate 1 : 68 bpm Height: 5'5" Respiratory Rate: 16 bpm Weight: 177 lbs 06/06/2012 Blood Pressure 1: 144/80 Code : 8480-6 BMI: 30.6 Code : 81153-2 Heart Rate 1 : 76 bpm Height: [...] Code : 8480-6 BMI: 31.1 Code : 63645-4 Heart Rate 1 : 78 bpm Height: 5'5" Weight: 187 lbs 10/19/2011 Blood Pressure 1: 112/60 Code : 8480-6 Heart Rate 1: 80 bpm SpO2: 97% Temperature: 36.7 (C) / 98.0 (F) Weight: 188 lbs 09/09/2011 Blood Pressure 1: 130/70 Code : 8480-6 BMI: 31.1 Code : 97555-9 Heart Rate 1 : 66 bpm Height: 5'5" Weight: 187 lbs 08/13/2011 Blood Pressure 1: 116/70 Code : 8480-6 BMI: 30.6 Code : 03241-5 Heart Rate 1 : 64 bpm Height: 5'5" Respiratory Rate: 20 bpm Weight: 184 lbs 07/02/2011 Blood Pressure 1: 112/60 Code : 8480-6 BMI: 30.4 Code : 65197-9 Heart Rate 1 : 66 bpm Height: 5'5" Respiratory Rate: 12 bpm Weight: 182 lbs 8 oz 06/24/2011 Blood Pressure 1: 127/58 Code : 8480-6 Heart Rate 1: 84 bpm Weight: 04/16/2011 Blood Pressure 1: 120/78 Code : 8480-6 BMI: 30.8 Code : 50522-0 Heart Rate 1 : 76 bpm Height: [...] pain Location diffusely 04/18/2013 having epidurals in [place], concerned because they didn't do mri of [...] weeks along. 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 PATIENT, LEVEL I Diagnosis: Essential (primary) hypertension[ICD10: I10] [facility] CPT-4: 39806 09/09/2017 ([id number]) 12097 EST. PATIENT, LEVEL III Diagnosis: Essential (primary) hypertension[ICD10: I10] Diagnosis: Chronic pain syndrome[ICD10: G89.4] [facility] CPT-4: 39335 09/03/2017 ([id number]) 01857 EST. PATIENT, LEVEL III Diagnosis: Other idiopathic peripheral autonomic neuropathy[ICD10: G90.09] Diagnosis: Vitamin B12 deficiency anemia due to intrinsic factor deficiency[ ICD10: D51.0] Diagnosis: Major depressive disorder, recurrent, moderate[ICD10: F33.1] Diagnosis: Encounter for immunization[ICD10: Z23] Rachael [facility] MD, [facility] CPT-4: 67011 05/27/2017 [id number]) [id number] EST. PATIENT, LEVEL IV Diagnosis: Vitamin B12 deficiency anemia, unspecified[ICD10: D51.9] Diagnosis: Essential (primary) hypertension[ICD10: I10] Diagnosis: Chronic pain syndrome[ICD10: G89.4] Diagnosis: Major depressive disorder, recurrent, moderate[ICD10: F33.1] Diagnosis: Vitamin B12 deficiency anemia due to intrinsic factor deficiency[ ICD10: D51.0] Rachael Newby MD, [facility] CPT-4: 76632 04/27/2017 ([id number]) 88822 EST. PATIENT, LEVEL IV Diagnosis: Essential (primary) hypertension[ICD10: I10] Diagnosis: Other specified polyneuropathies[ICD10: G62.89] Rachael Newby MD, [facility] CPT-4: 20740 03/09/2017 ([id number]) 84182 EST. PATIENT, LEVEL III Diagnosis: Essential (primary) hypertension[ICD10: I10] Diagnosis: Chronic pain syndrome[ICD10: G89.4] Diagnosis: Dysuria[ICD10: R30.0] Diagnosis: Allergic rhinitis due to pollen[ICD10: J30.1] Rachael Newby MD, [facility] CPT-4: 49001 02/22/2017 ([id number]) 67383 EST. PATIENT, LEVEL IV Diagnosis: Dysuria[ICD10: R30.0] Diagnosis: Urinary tract infection, site not specified[ICD10: N39.0] Diagnosis: Chronic pain syndrome[ICD10: G89.4] Rachael Newby MD, [facility] CPT-4: 29892 12/24/2016 ([id number]) 85200 EST. PATIENT, LEVEL III Diagnosis: Allergic urticaria[ICD10: L50.0] Jillian Newby MD, [facility] CPT-4: 65070 10/06/2016 ([id number]) 45100 EST. PATIENT, LEVEL IV Diagnosis: Essential (primary) hypertension[ICD10: I10] Diagnosis: Generalized anxiety disorder[ICD10: F41.1] Rachael Newby MD, [facility] CPT-4: 68275 10/01/2016 ([id number]) 95226 EST. PATIENT, LEVEL III Diagnosis: Displaced fracture of fifth metatarsal bone, left foot, initial encounter for closed fracture[ICD10: S92.352A] Diagnosis: Essential (primary) hypertension[ICD10: I10] Rachael Newby MD, [facility] CPT-4: 49394 09/01/2016 ([id number]) 47025 EST. PATIENT, LEVEL IV Diagnosis: Essential (primary) hypertension[ICD10: I10] Diagnosis: Chronic pain syndrome[ICD10: G89.4] Diagnosis: Vitamin B12 deficiency anemia, unspecified[ICD10: D51.9] Diagnosis: Vitamin D deficiency, unspecified[ICD10: E55.9] Diagnosis: Anemia, unspecified[ICD10: D64.9] Jillian Newby MD, [facility] CPT-4: 64933 08/11/2016 ([id number]) 76204 EST. PATIENT, LEVEL III Diagnosis: Chronic pain syndrome[ICD10: G89.4] Diagnosis: Rash and other nonspecific skin eruption[ICD10: R21] Rachael Newby MD, [facility] CPT-4: 99167 07/01/2016 ([id number]) 38146 EST. PATIENT, LEVEL IV Diagnosis: Vitamin B12 deficiency anemia, unspecified[ICD10: D51.9] Diagnosis: Anemia, unspecified[ICD10: D64.9] Diagnosis: Essential (primary) hypertension[ICD10: I10] Rachael Newby MD, [facility] CPT-4: 22866 04/23/2016 ([id number]) 54545 EST. PATIENT, LEVEL III Diagnosis: Essential (primary) hypertension[ICD10: I10] Diagnosis: Dysuria[ICD10: R30.0] Diagnosis: Chronic pain syndrome[ICD10: G89.4] Rachael Newby MD, [facility] CPT-4: 77692 03/03/2016 ([id number]) 46151 EST. PATIENT, LEVEL III Diagnosis: Generalized anxiety disorder[ICD10: F41.1] Diagnosis: Other specified dermatitis[ICD10: L30.8] Rachael Newby MD [facility] CPT-4: 52463 01/14/2016 35498 EST. PATIENT, LEVEL III Diagnosis: Encounter for follow-up examination after completed treatment for conditions other than malignant neoplasm[ICD10: Z09] Diagnosis: Family history of malignant neoplasm of digestive organs[ICD10: Z80.0 ] Diagnosis: Vitamin B12 deficiency anemia, unspecified[ICD10: D51.9] Brina Newby MD [facility] CPT-4: 05068 12/03/2015 ([id number]) 49899 EST. PATIENT, LEVEL IV Diagnosis: Essential (primary) hypertension[ICD10: I10] Diagnosis: Anemia, unspecified[ICD10: D64.9] Diagnosis: Mixed hyperlipidemia[ICD10: E78.2] Diagnosis: Gastro-esophageal reflux disease without esophagitis[ICD10: K21.9] Rachael Newby MD [facility] CPT-4: 14274 10/10/2015 ([id number]) 11590 EST. PATIENT, LEVEL IV Diagnosis: Essential (primary) hypertension[ICD10: I10] Diagnosis: Generalized anxiety disorder[ICD10: F41.1] Diagnosis: Pain in right shoulder[ICD10: M25.511] Rachael Newby MD [facility] CPT-4: 36429 08/28/2015 ([id number]) 57770 EST. PATIENT, LEVEL IV Diagnosis: Other constipation[ICD10: K59.09] Diagnosis: Chronic pain syndrome[ICD10: G89.4] Diagnosis: Essential (primary) hypertension[ICD10: I10] Diagnosis: Frequency of micturition[ICD10: R35.0] Rachael Newby MD [facility] CPT-4: 98445 06/12/2015 ([id number]) 03979 EST. PATIENT, LEVEL IV Diagnosis: OTHER CONSTIPATION[ICD9: 564.09] Diagnosis: ESSENTIAL HYPERTENSION[ICD9: 401.9] Rachael Newby MD [facility] CPT-4: 08764 05/09/2015 ([id number]) 61912 EST. PATIENT, LEVEL IV Diagnosis: Abdominal pain[ICD9: 789.00] Diagnosis: Vitamin D deficiency[ICD9: 268.9] Diagnosis: Vitamin B 12 deficiency[ICD9: 266.2] Diagnosis: Peripheral neuropathy[ICD9: 356.9] Diagnosis: ESSENTIAL HYPERTENSION[ICD9: 401.9] Diagnosis: Anxiety, generalized[ICD9: 300.02] Rachael Newby MD, [facility] CPT-4: 81390 04/12/2015 ([id number]) 83787 EST. PATIENT, LEVEL IV Diagnosis: Hemorrhoids[ICD9: 455.6] Diagnosis: Blood in stool[ICD9: 578.1] Diagnosis: Weight loss[ICD9: 783.21] Diagnosis: ESSENTIAL HYPERTENSION[ICD9: 401.9] Jillian Newby MD, [facility] CPT-4: 22115 03/12/2015 ([id number]) 34891 EST. PATIENT, LEVEL IV Diagnosis: Heart murmur[ICD9: 785.2] Diagnosis: Aortic regurgitation[ICD9: 424.1] Diagnosis: ESSENTIAL HYPERTENSION[ICD9: 401.9] Diagnosis: CHRONIC PAIN SYNDROME[ICD9: 338.4] Diagnosis: Fatigue[ICD9: 780.79] Diagnosis: MYALGIA AND MYOSITIS[ICD9: 729.1] Diagnosis: Vitamin B 12 deficiency[ICD9: 266.2] Rachael Newby MD, [facility] CPT-4: 77052 01/08/2015 ([id number]) 64038 EST. PATIENT, LEVEL III Diagnosis: ACUTE URI[ICD9: 465.9] Diagnosis: Vitamin B 12 deficiency[ICD9: 266.2] Rachael Newby MD, [facility] CPT-4: 40341 10/04/2014 ([id number]) 69096 EST. PATIENT, LEVEL IV Diagnosis: ESSENTIAL HYPERTENSION[ICD9: 401.9] Diagnosis: Vitamin B 12 deficiency[ICD9: 266.2] Diagnosis: Esophageal reflux[ICD9: 530.81] Rachael Newby MD, [facility] CPT- 4: 55578 09/10/2014 ([id number]) 58462 EST. PATIENT, LEVEL III Diagnosis: ESSENTIAL HYPERTENSION[ICD9: 401.9] Diagnosis: ACUTE URI[ICD9: 465.9] Rachael Newby MD, [facility] CPT-4: 32085 08/06/2014 ([id number]) 90261 EST. PATIENT, LEVEL III Diagnosis: Vitamin B 12 deficiency[ICD9: 266.2] Diagnosis: CHRONIC PAIN SYNDROME[ICD9: 338.4] Diagnosis: ESSENTIAL HYPERTENSION[ICD9: 401.9] Rachael Newby MD, [facility] CPT-4: 92344 07/12/2014 ([id number]) 50833 EST. PATIENT, LEVEL IV Diagnosis: Anxiety, generalized[ICD9: 300.02] Diagnosis: Insomnia[ICD9: 780.52] Diagnosis: VACCIN FOR INFLUENZA[ICD10: Z23] Diagnosis: Vitamin B 12 deficiency[ICD9: 266.2] Rachael Nweby MD, [facility] CPT-4: 37930 05/16/2014 ([id number]) 54862 EST. PATIENT, LEVEL III Diagnosis: ESSENTIAL HYPERTENSION[ICD9: 401.9] Diagnosis: Vitamin B 12 deficiency[ICD9: 266.2] Diagnosis: Insomnia[ICD9: 780.52] Rachael Newby MD, [facility] CPT-4: 66091 04/05/2014 ([id number]) 71919 EST. PATIENT, LEVEL IV Diagnosis: ESSENTIAL HYPERTENSION[ICD9: 401.9] Diagnosis: DEPRESSIVE DISORDER NEC[ICD9: 311] Diagnosis: MYALGIA AND MYOSITIS[ICD9: 729.1] Rachael Newby MD, [facility] CPT-4: 55899 03/05/2014 ([id number]) 84200 EST. PATIENT, LEVEL III Diagnosis: Dyshidrotic eczema[ICD9: 705.81] Diagnosis: B-COMPLEX DEFIC NEC[ICD9: 266.2] Jillian Newby MD, [facility] CPT-4: 09274 02/01/2014 ([id number]) 88526 EST. PATIENT, LEVEL III Diagnosis: Rash[ICD9: 782.1] Diagnosis: ESSENTIAL HYPERTENSION[SNOMED: 46960935] Jillian Newby MD, [facility] CPT-4: 82692 12/07/2013 ([id number]) 17210 EST. PATIENT, LEVEL IV Diagnosis: ESSENTIAL HYPERTENSION[SNOMED: 56900291] Diagnosis: MYALGIA AND MYOSITIS[ICD9: 729.1] Diagnosis: DEPRESSIVE DISORDER NEC[ICD9: 311] Diagnosis: Dietary counseling[ICD9: V65.3] Rachael Newby MD, [facility] CPT- 4: 57684 09/25/2013 ([id number]) 71836 EST. PATIENT, LEVEL IV Diagnosis: ESSENTIAL HYPERTENSION[SNOMED: 74353697] Diagnosis: DEPRESSIVE DISORDER NEC[ICD9: 311] Diagnosis: Fatigue[ICD9: 780.79] Rachael Newby MD, [facility] CPT-4: 72327 09/04/2013 ([id number]) 94489 EST. PATIENT, LEVEL III Diagnosis: Back pain[ICD9: 724.5] Rachael Newby MD, [facility] CPT-4: 32628 05/18/2013 ([id number]) 51550 EST. PATIENT, LEVEL III Diagnosis: ESSENTIAL HYPERTENSION[SNOMED: 68621656] Diagnosis: Sacroiliitis[ICD9: 720.2] Diagnosis: Sleep apnea[ICD9: 780.57] Rachael Newby MD, [facility] CPT-4: 36756 04/18/2013 ([id number]) 84945 EST. PATIENT, LEVEL IV Diagnosis: ESSENTIAL HYPERTENSION[SNOMED: 33349825] Diagnosis: Fatigue[ICD9: 780.79] Diagnosis: Snoring disorder[ICD9: 786.09] Rachael Newby MD, [facility] CPT- 4: 08917 03/16/2013 ([id number]) 31685 EST. PATIENT, LEVEL III Diagnosis: CELLULITIS OF NECK[ICD9: 682.1] Diagnosis: CELLULITIS OF TRUNK[ICD9: 682.2] Rachael Newby MD, [facility] CPT-4: 97758 01/26/2013 ([id number]) 59605 EST. PATIENT, LEVEL III Diagnosis: ESSENTIAL HYPERTENSION[SNOMED: 10987049] Diagnosis: CELLULITIS, FINGER[ICD9: 681.00] Diagnosis: ENCNTR LONG-RX USE NEC[ICD9: V58.69] Diagnosis: Vitamin B 12 deficiency[ICD9: 266.2] Diagnosis: JOINT PAIN-HAND[ICD9: 719.44] Jillian Newby MD, [facility] CPT-4: 08715 12/27/2012 ([id number]) 24437 EST. PATIENT, LEVEL IV Diagnosis: ESSENTIAL HYPERTENSION[SNOMED: 40741531] Diagnosis: HYPERLIPIDEMIA[ICD9: 272.4] Diagnosis: MYALGIA AND MYOSITIS[ICD9: 729.1] Rachael Newby MD [facility] CPT-4: 86100 10/11/2012 ([id number]) 32711 EST. PATIENT, LEVEL IV Diagnosis: ESSENTIAL HYPERTENSION[SNOMED: 98524542] Diagnosis: Anxiety, generalized[ICD9: 300.02] Diagnosis: Fatigue[ICD9: 780.79] Diagnosis: Depression[ICD9: 311] Rachael Newby MD [facility] CPT-4: 81019 09/21/2012 ([id number]) 30051 EST. PATIENT, LEVEL III Diagnosis: Dental abscess[ICD9: 522.5] Diagnosis: ACUTE MAXILLARY SINUSITIS[ICD9: 461.0] Rachael Newby MD [facility] CPT-4: 18797 08/02/2012 ([id number]) 25973 EST. PATIENT, LEVEL III Diagnosis: SACROILIITIS NEC[ICD9: 720.2] Diagnosis: CHRONIC PAIN SYNDROME[ICD9: 338.4] Rachael Newby MD [facility] CPT-4: 64577 06/27/2012 ([id number]) 81666 EST. PATIENT, LEVEL IV Diagnosis: ESSENTIAL HYPERTENSION[SNOMED: 58829615] Diagnosis: Tennis elbow[ICD9: 726.32] Diagnosis: Neck pain on right side[ICD9: 723.1] Rachael Newby MD [facility] CPT-4: 53476 06/06/2012 ([id number]) 85316 EST. PATIENT, LEVEL IV Diagnosis: Esophageal reflux[ICD9: 530.81] Diagnosis: Cervicalgia[ICD9: 723.1] Diagnosis: Medial epicondylitis[ICD9: 726.31] Jillian Newby MD [facility] CPT-4: 64639 05/16/2012 ([id number]) 04569 EST. PATIENT, LEVEL IV Diagnosis: EDEMA[ICD9: 782.3] Diagnosis: Chronic pain disorder[ICD9: 338.4] Diagnosis: DEPRESSIVE DISORDER NEC[ICD9: 311] Diagnosis: MALAISE AND FATIGUE[ICD9: 780.79] Rachael Newby MD, [facility] CPT-4: 75325 02/29/2012 ([id number]) 52567 EST. PATIENT, LEVEL IV Diagnosis: ANEMIA[ICD9: 285.9] Diagnosis: Fatigue[ICD9: 780.79] Rachael Newby MD [facility] CPT-4: 79036 02/08/2012 ([id number]) 02879 EST. PATIENT, LEVEL IV Diagnosis: Acute renal failure[ICD9: 584.9] Diagnosis: Fatigue[ICD9: 780.79] Diagnosis: Myalgia[ICD9: 729.1] Rachael Newby MD [facility] CPT-4: 18123 02/01/2012 ([id number]) 57399 EST. PATIENT, LEVEL III Diagnosis: Oral aphthae[ICD9: 528.2] Diagnosis: Fatigue[ICD9: 780.79] Diagnosis: History of iron deficiency anemia[ICD9: V12.3] Diagnosis: HYPERLIPIDEMIA[ICD9: 272.4] Diagnosis: ESSENTIAL HYPERTENSION[SNOMED: 61766811] Jillian Newby MD, [facility] CPT-4: 28381 01/22/2012 ([id number]) 62084 EST. PATIENT, LEVEL III Diagnosis: ACUTE SINUSITIS[ICD9: 461.9] Jillian Newby MD, [facility] CPT-4: 48842 10/19/2011 ([id number]) 06661 EST. PATIENT, LEVEL III Diagnosis: ACUTE SINUSITIS[ICD9: 461.9] Diagnosis: JOINT PAIN-L/LEG[ICD9: 719.46] Rachael Newby MD, [facility] CPT- 4: 19322 08/13/2011 43877 EST. PATIENT, LEVEL III Diagnosis: JOINT PAIN-L/LEG[ICD9: 719.46] Diagnosis: Primary localized osteoarthrosis of the knee[ICD9: 715.16] Rachael Newby MD , [facility] CPT-4: 88839 07/02/2011 70114 EST. PATIENT, LEVEL III Diagnosis: Knee pain, left[ICD9: 719.46] Diagnosis: Fall from slipping[ICD9: E885.9] Jillian Newby MD, [facility] CPT-4: 67557 06/24/2011 56043 EST. PATIENT, LEVEL III Diagnosis: Aphthous ulcer[ICD9: 528.2] Rachael Newby MD, [facility] CPT- 4: 85515 04/16/2011 Plan of Care Planned Activity Notes Codes Status Date Appointment: Nurse Visit 09/09/2017 Patient Education: Patient [...] hydrocodone. 09/03/2017 Appointment: Rachael Newby WPtel: [phone] [facility] (15 min) Moderate 09/03/2017 Patient Education: Patient Medication Summary Completed 09/03/2017 Appointment: Rachael Newby WPtel: [facility] [place] (15 min) Moderate 08/26/2017 Appointment: Rachael Newby WPtel: [facility] (15 min) Moderate 07/14/2017 Visit Plan: Peripheral [...] current medications. 05/27/2017 Appointment: Rachael Newby WPtel: [phone] [facility] (15 min) Moderate 05/27/2017 Patient Education: Patient [...] Injection 04/27/2017 [phone] ([facility] Moderate 04/27/2017 Patient Education: Patient [...] Completed 03/09/2017 Appointment: Rachael Newby WPtel: [phone] [facility] (15 min) Moderate 02/25/2017 Visit Plan: Hypertension [...] today 02/22/2017 Appointment: Rachael Newby WPtel: [phone] [facility] (15 min) Moderate 02/22/2017 Patient Education: Patient [...] surrogate. 12/28/2016 App[facility]ment[phone] [facility] - Annual Wellness Visit 12/28/2016 Patient Education: [...] are finished. 12/24/2016 Appointment: Rachael Newby WPtel: [facility]5 [facility] (15 min) Moderate 12/24/2016 Patient Education: Patient Medication Summary Completed 12/24/2016 Appointment: Brina Cazares WPtel: [facility]1 [facility] [facility] - Annual Wellness Visit 11/26/2016 Appointment: Injection 10/14/2016 Patient Education: Patient Medication Summary Completed 10/14/2016 Visit Plan: Hives-short course of prednisone-start claritin and pepcid as directed-call if symptoms do not resolve or if any worse. Patient verbalized understanding of plan. 10/06/2016 Appointment: Jillian Dalal WPtel: [phone] [place] (30 min) Complex 10/06/2016 Patient Education: [...] current medications. 10/01/2016 Appointment: Rachael Newby WPtel: [facility] (15 min) Moderate 10/01/2016 Patient Education: Patient [...] home. 09/01/2016 Appointment: Rachael Newby WPtel: [phone] [facility] [place] (15 min) Moderate 09/01/2016 Patient Education: Patient Medication Summary Completed 09/01/2016 Care Plan: Referral Order SNOMED-CT : 319607547 Pending 09/01/2016 Visit Plan: Hypertension - well [...] Dr Palacio 08/11/2016 Appointment: Jill[phone] [place] (15 min) Moderate 08/11/2016 Patient Education: Patient Medication Summary Completed 08/11/2016 Care Plan: Referral Order SNOMED-CT : 815527919 Pending 08/11/2016 Visit Plan: Chronic Pain Syndrome - pt has chronic pain - has been maintained on current medications, has not sought out other medications , only uses PRN pain medications as directed, and understands the consequences of over-medication. RX for Efudex to be used on hands until lesions healed 07/01/2016 Appointment: [phone] [place] (15 min) Moderate 07/01/2016 Patient Education: [...] iron orally. 04/23/2016 Appointment: Rachael Newby WPtel: [facility]5 [facility] (15 min) Moderate 04/23/2016 Patient Education: Patient [...] Summary Completed 03/03/2016 Appointment: Rachael Newby WPtel: [facility]5 [facility] (15 min) Moderate 02/17/2016 Visit Plan: Rash - Rx for betamethasone for the rash on left lateral lower leg and right hand on dorsum over digits #3/4. Anxiety - uncontrolled - RX for buspar. 01/14/2016 Patient Education: Patient Medication Summary Completed 01/14/2016 Appointment: Rachael Newby WPtel: [facility] (15 min) Moderate 01/13/2016 Visit Plan: Hospital [...] testing. 12/03/2015 Appointment: Jillian Dalal WPtel: [phone] [phone] (15 min) Moderate 12/03/2015 Patient Education: [...] of over-medication. 10/10/2015 Appointment: Rachael Newby WPtel: [phone] [facility] (15 min) Moderate 10/10/2015 Patient Education: Patient [...] on her shoulder from Dr. Paz in [place]. 08/28/2015 Patient Education: Patient Medication Summary Completed 08/28/2015 Patient Education: Hypertension Completed 08/28/2015 Appointment: Rachael Newby WPtel: [phone] [facility] (15 min) Moderate 08/07/2015 Visit Plan: Hypertension [...] pain medication. 06/12/2015 Appointment: Rachael Newby WPtel: [facility] (15 min) Moderate 06/12/2015 Patient Education: Patient [...] this regimen. 05/09/2015 Appointment: Rachael Newby WPtel: [facility]5 [facility] (15 min) Moderate 05/09/2015 Patient Education: Patient [...] ABD & PELV 1/> REGNS LOINC : 01012-0 Ordered 04/12/2015 Visit Plan: Hypertension - well controlled - continue with current medications, continue with no added salt diet. Pt has been encouraged to exercise daily. The pt has been advised to call the office if there are any acute concerns about change in blood pressure readings at home. Black stool- check stools Hemorrhoid-RX for anusol suppositories and instructed on use Weight oknv-gvqldirfozrfk-grpkg stools and labs-refer to Dr Riddle if [...] ESR, CRP. 01/08/2015 Appointment: Rachael Newby WPtel: [address] [place], [place] [address] Follow up 01/08/2015 Patient Education: Patient Medication Summary Completed 01/08/2015 Patient Education: Hypertension Completed 01/08/2015 Care Plan: Referral Order SNOMED-CT : 138979614 Ordered 01/08/2015 Appointment: Injection 11/28/2014 Patient Education: Patient Medication Summary Completed 11/28/2014 Patient Education: Patient Medication Summary Completed 10/15/2014 Care Plan: SCREENINGMAMMOGRAPHYDIGITAL LOINC : 36328-1 Ordered 10/15/2014 Visit Plan: URI - Pt advised to increase fluids, vitamin C. Discussed natural and expected course of this diagnosis and need to alert me if symptoms do not follow expected course, or if any worse. RX sent to patient' s pharmacy. 10/04/2014 Appointment: Rachael Newby WPtel: [phone] [facility] Sick 10/04/2014 Patient Education: Patient Medication Summary [...] shot today 09/10/2014 Appointment: Rachael Newby WPtel: [phone] [facility] Follow up 09/10/2014 Patient Education: Patient Medication [...] given today 08/06/2014 Appointment: Rachael Newby WPtel: [facility] called and confirmed appt Follow up 08/06/2014 [...] , and understands the consequences of over-medication. GEL-SIH-gogah follow up with cardiology-patient wants to wait until after holidays-does not want to go back to Dr Wong-refer to Dr Tenorio-patient is going to call us when she gets home. 07/12/2014 Appointment: Sick 07/12/2014 Patient Education: Patient Medication Summary Completed 07/12/2014 Patient Education: Hypertension Completed 07/12/2014 Patient Education: Patient Medication Summary Completed 06/28/2014 Appointment: [phone] [place] Injection 06/14/2014 Patient Education: Patient Medication Summary Completed 06/14/2014 Appointment: [phone] [place] Injection 05/31/2014 Patient Education: Patient Medication Summary Completed 05/31/2014 Appointment: [phone] [place] Injection 05/23/2014 Visit Plan: Anxiety - [...] time insomnia. 05/16/2014 Appointment: [phone] Follow up 05/16/2014 Patient Education: Patient Medication [...] myalgias improve. 03/05/2014 Appointment: Rachael Newby WPtel: [facility] [place] Follow up 03/05/2014 Patient Education: Patient Medication Summary Completed 03/05/2014 Patient Education: Hypertension Completed 03/05/2014 Visit Plan: Dyshidrotic eczema-RX for betamethasone cream- discussed natural and expected course of this diagnosis and to alert me if symptoms do not follow expected course, or if any worse. RX sent to patient's pharmacy. Patient verbalized understanding of plan. 02/01/2014 Appointment: Jillian Dalal WPtel: [phone] [phone] [place] Follow up 02/01/2014 Patient Education: Patient Medication Summary Completed 02/01/2014 Appointment: Jill[facility] Dalal [facility]Ptel[phone] [place] Injection 12/29/2013 Patient Education: Patient Medication Summary Completed 12/29/2013 Appointment: [phone] [place] Injection 12/27/2013 Visit Plan: Rash-RX sent to patient's pharmacy-keep hands clean and dry-call next week with update on symptoms HTN-well controlled-CAD- diastolic dysfunction-no recent cardiology follow up and significant heart murmur-recommend appointment with Dr Wong. 12/07/2013 Appointment: Jill[facility] Dalal [facility]Ptel[phone] [place] rash 12/07/2013 Patient Education: Patient [...] muscle aches. 09/25/2013 Appointment: Rachael Newby WPtel: [phone] [facility] Follow up 09/25/2013 Patient Education: Patient Medication Summary Completed 09/25/2013 Patient Education: .Amazing charts Diabetic meal planning guide Completed 09/25 Patient Education: Hypertension Completed 09/25/2013 Appointment: Rachael Newby WPtel: [facility] [place] Lab Draw 09/05/2013 Visit Plan: Hypertension [...] vitamin d 09/04/2013 Appointment: Rachael Newby WPtel: [address] [place], [place] [phone] Follow up 09/04/2013 Patient Education: Patient Medication Summary Completed 09/04/2013 Patient Education: Hypertension Completed 09/04/2013 Appointment: Rachael Newby WPtel: [address] [place], [place] [phone] Follow up 08/29/2013 Visit Plan: Sacroilitis - shots in SI joints today - back exercises discussed with the patient, pt to continue with antiinflammatories. Pt is to call if the symptoms do not improve or if they worsen. 05/18/2013 Appointment: Rachael Newby WPtel: [address] [place], [place] [phone] Follow up 05/18/2013 Patient Education: Patient Medication [...] acute pain-recommend f/u with Dr Marin at [address] 04/18/2013 Appointment: Jillian Dalal WPtel: [address] [place], [place] [phone] Follow up 04/18/2013 Patient Education: Patient Medication Summary Completed 04/18/2013 Patient Education: Hypertension Completed 04/18/2013 Appointment: Rachael Newby WPtel: [address] [place], [place] [phone] [place] Follow up 04/13/2013 Visit Plan: Hypertension [...] SLEEP STUDY. 03/16/2013 Appointment: Rachael Newby WPtel: [facility] Follow up 03/16/2013 Patient Education: Patient Medication Summary Completed 03/16/2013 Patient Education: Hypertension Completed 03/16/2013 Appointment: Rachael Newby WPtel: [address] [place], [place] [phone] Follow up 02/28/2013 Visit Plan: Cellulitis - continue with oral antibiotics as previously directed, return to clinic as previously directed, call for acute change in symptoms, worsening redness, warmth, discharge. 01/26/2013 Appointment: Rachael Newby WPtel: [address] [place], [place] [phone] Other 01/26/2013 Patient Education: Patient Medication Summary [...] acute concerns. 12/27/2012 Appointment: Jillian Dalal WPtel: [phone] [place] rash 12/27/2012 Patient Education: Patient [...] not improve. 10/11/2012 Appointment: Rachael Newby WPtel: [facility] Follow [facility] 10/11/2012 Patient Education: Patient Medication Summary Completed 10/11/2012 Patient Education: Hypertension Completed 10/11/2012 Appointment: Jillian Dalal WPtel: [phone] Lab Draw 10/07/2012 Patient Education: Patient Medication Summary Completed 10/07/2012 Patient Education: Hypertension Completed 10/07/2012 Appointment: Rachael Newby WPtel: [facility] [place] Lab Draw 09/26/2012 Visit Plan: Hypertension [...] labs done fasting - tomorrow 09/21/2012 Appointment: Racheal Newby WPtel: [phone] [facility] Follow up 09/21/2012 Patient Education: Patient Medication Summary Completed 09/21/2012 Patient Education: Hypertension Completed 09/21/2012 Visit Plan: Dental abcess- Sinusitis- pt to start on clindamycin and flagyl, use sinus rinse, and see dentist [facility] 08/02/2012 Appointment: Rachael Newby WPtel: [phone] [facility] [facility] 08/02/2012 Patient Education: Patient Medication Summary Completed 08/02/2012 Visit Plan: Sacroilitis - Pt is unable to use oral antiinflammatories of the NSAID variety due to compromised renal function, therefore, until she is able to receive injections from the specialist at [facility] [address] [place] [address], she will be on a steroid taper. Back and leg pain - steroid shot today - pt to see specialist for epidural and SI joint injections [facility] 06/27/2012 Appointment: Rachael Newby WPtel: [phone] [facility] Follow up 06/27/2012 Patient Education: Patient [...] right. 06/06/2012 Appointment: Rachael Newby WPtel: [phone] [facility] Follow up 06/06/2012 Patient Education: Patient Medication [...] of plan. 05/16/2012 Appointment: Jillian Dalal WPtel: [id number] [place] [address] 05/16/2012 Patient Education: Patient Medication Summary Completed 05/16/2012 Visit Plan: Edema has improved - continue with current treatment, low sodium diet, call for any acute changes in the symptoms. Pt is planning a trip to [place] soon and I have encouraged her to [...] pressure medication. 02/29/2012 Appointment: Rachael Newby WPtel: [phone] [facility] Follow up 02/29/2012 Patient Education: Patient [...] supplements daily. 02/08/2012 Appointment: Rachael Newby WPtel: [address] [place], [place] [phone] Follow up 02/08/2012 Patient Education: Patient Medication [...] renal function. 02/01/2012 Appointment: Rachael Newby WPtel: [facility] [place] Other 02/01/2012 Patient Education: Patient Medication [...] at home. 01/22/2012 Appointment: Jillian Dalal WPtel: [phone] [place] Other 01/22/2012 Patient Education: Patient Medication [...] and plan.. 09/09/2011 Appointment: Rachael Newby WPtel: [facility] [facility] 09/09/2011 Patient Education: Patient Medication Summary Completed 09/09/2011 Appointment: Rachael Newby WPtel: [address] [place], [place] [id number] [place] Pap Only 09/03/2011 Visit Plan: Sinusitis [...] for removal. 07/02/2011 App[facility]ment: [facility] [facility] 07/02/2011 Patient Education: Patient Medication Summary [...] or worsen. 06/24/2011 Appointment: Jillian Dalal WPtel: [phone] [place] Other 06/24/2011 Patient Education: Patient Medication Summary Completed 06/24/2011 Visit Plan: Apthous ulcer-take the acyclovir as directed. QID x 7 days, then bid x 1 month. Pt advised to stop eating acidic foods, stop drinking pop, start on a multivitamin. 04/16/2011 App[facility]ment: [phone] [place] Other 04/16/2011 Patient Education: Patient Medication Summary Completed 04/16/2011 Referral: Yandel Hernandez Referral Appointment Requested Referral: [phone] [place] Referral Completed Instructions Comment hold LIPITOR [...] directed, and understands the consequences of over-medication. [id number]-CIH-[id number] follow up with cardiology-patient wants to wait [...] anusol suppositories and instructed on use Weight zerl-wwnsfxrbpsoex-lwsmh stools and labs-refer to Dr Riddle if indicated Cosmo Paz MD - Orthopedic surgeon in [facility] - consider this for possible [...] on her shoulder from Dr. Paz in [place]. . Paronychia - continue with oral antibiotics [...] next week with update on symptoms HTN-well ulhkqdrdia-KMF-czqhyuvfm dysfunction-no recent cardiology follow up and significant [...] change in blood pressure readings at home. Oeorhei-nsfucpcbfqnw-aptfmwxg xanax at 2pm-take a full tab to [...] symptoms. Pt is planning a trip to [place] soon and I have encouraged her to [...] acute pain-recommend f/u with Dr Marin at [facility] [address] start drinking 4 ounces of [...]
--- OUTSIDE RECORDS SUMMARY | 2018-07-05 08:24 | XMS REPORT | CCD ---
Author Author Rachael Newby Organization [facility] Address [address] [place] [address] Phone Care Team Providers Care Sec Reporting Consultant Name Role Phone Rachael Newby PP Unavailable CCM Unavailable Summary Purpose Interface Exchange Insurance Providers Payer name Policy type / Coverage type Covered green party ID Effective Begin Date Effective End Date WPS Medicare Part B Medicare Part B [id number] 2013 Unknown [facility] Medicare Part B [id number] 2013 Unknown Family history Runs in the [...] of children Unknown 4 1 daughter in [place], 3 sons live in [facility] Employment Unknown 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 Unknown Has never used illegal drugs 04/16/2011 Allergies, Adverse Reactions, Alerts Substance Reaction Codes Entered Date Inactivated Date Status PENICILLINS hives, rash Unknown 04/16/2011 No Inactive Date Active Past Medical History Illness Codes Condition Status Onset Date Resolved Date Essential (primary) hypertension ICD-9: 401.1 ICD-10: I10 Active 08/10/2016 Unknown Essential (primary) hypertension ICD-9: 401.9 ICD-10: I10 Active 03/05/2014 Unknown Chronic pain syndrome ICD-9: 338.4 ICD-10: G89.4 Active 08/10/2016 Unknown neuropathy Unknown Active 05/27/2017 [...] Dates Condition Status Essential (primary) hypertension ICD-9: 401.1 ICD-10: I10 08/10/2016 Active Essential (primary) hypertension ICD-9: 401.9 ICD-10: I10 03/05/2014 Active Chronic pain syndrome ICD-9: 338.4 ICD-10: G89.4 08/10/2016 Active neuropathy Unknown 05/27/2017 Active Encounter [...] Start Date Stop Date Status Fill Instructions hydrocodone 10 mg-acetaminophen 325 mg tablet RxNorm: 349031 1 Tablet(s) PO Q4-6H as needed pain 10/05/2017 10/28/2017 Active alprazolam 1 mg tablet RxNorm: 445697 1 Tablet(s) PO Q8 PRN as needed TAKE 1 TABLET THREE TIMES DAILY NEEDED FOR ANXIETY. 10/05/2017 01/02/2018 Active losartan 50 mg tablet RxNorm: 127573 1 Tablet(s) PO daily 201705/02/2018 Active isosorbide mononitrate 10 mg tablet RxNorm: 832912 1 Tablet(s) PO BID 09/10/2017 04/07/2018 Active pantoprazole 40 mg tablet,delayed release RxNorm: 381119 1 Tablet(s) PO BID x 1 wk then daily thereafter 09/03/2017 No Stop Date Active isosorbide mononitrate 10 mg tablet RxNorm: 154686 1 Tablet(s) PO daily 09/03/2017 09/09/2017 Inactive hydrocodone 10 mg-acetaminophen 325 mg tablet RxNorm: 464773 1 Tablet(s) PO Q4-6H as needed pain 07/09/2017 08/01/2017 Inactive alprazolam 1 mg tablet RxNorm: 410539 1 Tablet(s) PO Q8 PRN as needed TAKE 1 TABLET THREE TIMES DAILY NEEDED FOR ANXIETY. 07/01/2017 08/29/2017 Inactive omeprazole 20 mg tablet,delayed release RxNorm: 179254 1 Tablet(s) PO BID 07/01/2017 08/29/2017 Inactive omeprazole 20 mg tablet,delayed release RxNorm: 529176 1 Tablet(s) PO BID Tablet(s ) 1 Tablet(s) PO BID 06/30/20172016 Inactive hydrocodone 10 mg-acetaminophen 325 mg tablet RxNorm: 910620 1 Tablet(s) PO Q4-6H as needed pain 06/24/2017 07/08/2017 Inactive bupropion HCl XL 300 mg 24 hr tablet, extended release RxNorm: 560156 1 Tablet(s) PO daily 05/27/2017 08/19/2018 Active alprazolam 1 mg tablet RxNorm: 313089 1 Tablet(s) PO Q8 PRN as needed TAKE 1 TABLET THREE TIMES DAILY NEEDED FOR ANXIETY. 05/27/2017 06/30/2017 Inactive hydrocodone 10 mg-acetaminophen 325 mg tablet RxNorm: 021413 1 Tablet(s) PO Q4-6H as needed pain 05/27/2017 06/19/2017 Inactive cyanocobalamin (vit B-12) 1,000 mcg/mL injection solution RxNorm: 314755 1 Milliliter(s) Inj 05/27/2017 05/27/2017 Inactive cyanocobalamin (vit B-12) 1,000 mcg/mL injection solution RxNorm: 422263 1 Milliliter(s) Inj 04/27/2017 04/27/2017 Inactive hydrocodone 10 mg-acetaminophen 325 mg tablet RxNorm: 963645 1 Tablet(s) PO Q4-6H as needed pain 04/27/2017 05/26/2017 Inactive Cymbalta 60 mg capsule,delayed release RxNorm: 155280 1 Capsule(s) PO daily 04/27/2017 04/27/2017 Inactive cyanocobalamin (vit B-12) 1,000 mcg/mL injection solution RxNorm: 704873 1 Milliliter(s) Inj 04/09/2017 04/09/2017 Inactive cyanocobalamin (vit B-12) 1,000 mcg/mL injection solution RxNorm: 097445 Milliliter(s) Inj 03/23/2017 03/23/2017 Inactive alprazolam 1 mg tablet RxNorm: 764550 1 Tablet(s) PO Q8 PRN as needed TAKE 1 TABLET THREE TIMES DAILY NEEDED FOR ANXIETY. 03/17/2017 05/15/2017 Inactive cyanocobalamin (vit B-12) 1,000 mcg/mL injection solution RxNorm: 850239 Milliliter(s) Inj 03/11/2017 03/11/2017 Inactive metoprolol tartrate 50 mg tablet RxNorm: 484878 1 Tablet(s) PO BID 03/09/2017 03/03/2018 Active this replaces the 25mg RX for metoprolol tartate Metanx (algal oil) 3 mg-35 mg-2 mg-90.314 mg capsule RxNorm: 1 Capsule(s) PO BID 03/09/2017 05/17/2017 Inactive gabapentin 100 mg capsule RxNorm: 752789 2 Capsule(s) PO TID 05/31/2017 Inactive Zofran 4 mg tablet RxNorm: 179466 1 Tablet(s) PO TID as needed 02/26/2017 No Stop Date Active Kenalog 40 mg/mL suspension for injection RxNorm: 8320822 1 Milliliter(s) Inj 02/22/2017 02/22/2017 Inactive metoprolol tartrate 25 mg tablet RxNorm: 101273 1 Tablet(s) PO BID 02/22/2017 03/08/2017 Inactive 07/23/2016 10:27:52 AM trimethoprim 100 mg tablet RxNorm: 227784 1 Tablet(s) PO daily 01/02/2017 12/24/2016 Inactive Lipitor 40 mg tablet RxNorm: 363995 TAKE ONE TABLET BY MOUTH AT BEDTIME 12/25/2016 12/19/2017 Active Generic For:LIPITOR 40MG TAB refill request trimethoprim 100 mg tablet RxNorm: 206693 1 Tablet(s) PO daily 12/25/2016 06/22/2017 Inactive bupropion HCl XL 300 mg 24 hr tablet, extended release RxNorm: 620838 1 Tablet(s) PO daily 12/25/2016 04/26/2017 Inactive Bactrim DS 800 mg-160 mg tablet RxNorm: 442609 1 Tablet(s) PO BID 12/24/2016 01/02/2017 Inactive hydrocodone 10 mg-acetaminophen 325 mg tablet RxNorm: 926799 1 Tablet(s) PO Q4-6H as needed pain 12/24/2016 01/22/2017 Inactive bupropion HCl XL 300 mg 24 hr tablet, extended release RxNorm: 940104 1 Tablet(s) PO daily 12/24/2016 12/24/2016 Inactive omeprazole 20 mg tablet,delayed release RxNorm: 269319 Tablet(s) 1 Tablet(s) PO BID 11/27/2016 05/25/2017 Inactive hydrocodone 10 mg-acetaminophen 325 mg tablet RxNorm: 204181 1 Tablet(s) PO Q4-6H as needed pain 11/18/2016 12/11/2016 Inactive alprazolam 1 mg tablet RxNorm: 437752 1 Tablet(s) PO Q8 PRN as needed TAKE 1 TABLET THREE TIMES DAILY NEEDED FOR ANXIETY. 11/18/2016 02/15/2017 Inactive hydrocodone 10 mg-acetaminophen 325 mg tablet RxNorm: 609922 1 Tablet(s) PO Q4-6H as needed pain 10/19/2016 11/11/2016 Inactive cyanocobalamin (vit B-12) 1,000 mcg/mL injection solution RxNorm: 235129 1 Milliliter(s) Inj 10/14/2016 10/14/2016 Inactive prednisone 20 mg tablet RxNorm: 545509 3 Tablet(s) PO daily 10/08/2016 Inactive Metanx (algal oil) 3 mg-35 mg-2 mg-90.314 mg capsule RxNorm: 1 Capsule(s) PO BID 10/01/2016 01/28/2017 Inactive isosorbide mononitrate ER 30 mg tablet,extended release 24 hr RxNorm: 230088 1 Tablet(s) PO daily TAKE 1 TABLET BY MOUTH ONCE DAILY. 201612/23/2016 Inactive hydrocodone 10 mg-acetaminophen 325 mg tablet RxNorm: 434152 1 Tablet(s) PO Q4-6H as needed pain 09/24/2016 10/17/2016 Inactive cyanocobalamin (vit B-12) 1,000 mcg/mL injection solution RxNorm: 445455 Milliliter(s) Inj 09/16/2016 09/16/2016 Inactive alprazolam 1 mg tablet RxNorm: 314672 1 Tablet(s) PO Q8 PRN as needed TAKE 1 TABLET THREE TIMES DAILY NEEDED FOR ANXIETY. 09/01/2016 11/28/2016 Inactive hydrocodone 10 mg-acetaminophen 325 mg tablet RxNorm: 058744 1 Tablet(s) PO Q4-6H as needed pain 09/01/2016 09/23/2016 Inactive Vitamin D2 50,000 unit capsule RxNorm: 302050 1 Capsule(s) PO QW 08/14/2016 05/26/2017 Inactive Vitamin D2 50,000 unit capsule RxNorm: 762091 1 Capsule(s) PO QW 08/14/2016 08/13/2016 Inactive cyanocobalamin (vit B-12) 1,000 mcg/mL injection solution RxNorm: 574564 1 Milliliter(s) Inj 08/11/2016 08/11/2016 Inactive hydrocodone 10 mg-acetaminophen 325 mg tablet RxNorm: 468827 1 Tablet(s) PO Q4-6H as needed pain 08/07/2016 08/30/2016 Inactive metoprolol tartrate 25 mg tablet RxNorm: 611068 TAKE 1 TABLET BY MOUTH TWICE DAILY 07/23/2016 12/23/2016 Inactive 07/23/2016 10:27:52 AM gabapentin 100 mg capsule RxNorm: 281032 Capsule(s) PO TID TAKE (1) CAPSULE BY MOUTH THREE TIMES DAILY. 07/14/20162016 Inactive hydrocodone 10 mg-acetaminophen 325 mg tablet RxNorm: 107870 1 Tablet(s) PO Q4-6H as needed pain 07/09/2016 08/01/2016 Inactive fluorouracil 5 % topical cream RxNorm: 425626 1 Application TOP BID 07/01/2016 06/30/2016 Inactive fluorouracil 5 % topical cream RxNorm: 920508 1 Application TOP BID 07/01/2016 07/10/2016 Inactive alprazolam 1 mg tablet RxNorm: 441872 1 Tablet(s) PO Q8 PRN as needed TAKE 1 TABLET THREE TIMES DAILY NEEDED FOR ANXIETY. 06/22/2016 08/31/2016 Inactive ( Appended: Controlled substance eRx refill - RxReferenceNumber: [id number]) hydrocodone 10 mg-acetaminophen 325 mg tablet RxNorm: 438310 1 Tablet(s) PO Q4-6H as needed pain 06/16/2016 06/30/2016 Inactive doxycycline hyclate 100 mg capsule RxNorm: 8790125 1 Capsule(s) PO BID 05/27/2016 06/02/2016 Inactive hydrocodone 10 mg-acetaminophen 325 mg tablet RxNorm: 863177 1 Tablet(s) PO Q4-6H as needed pain 05/12/2016 06/04/2016 Inactive [SAVINGS FOR NON-COVERED DRUGS -- BIN :877292, PCN: ASPROD1, Group: XXXXX, ID# [id number], Questions: . THIS IS NOT INSURANCE.] alprazolam 1 mg tablet RxNorm: 003522 1 Tablet(s) PO Q8 PRN as needed TAKE 1 TABLET THREE TIMES DAILY NEEDED FOR ANXIETY. 05/01/2016 11/17/2016 Inactive ( Appended: Controlled substance eRx refill - RxReferenceNumber: [id number]) Flonase 50 mcg/actuation nasal spray,suspension RxNorm: 4105058 1 [place] NASAL BID 1 [place] NASAL BID 04/23/2016 04/17/2017 Inactive Flonase 50 mcg/actuation nasal spray,suspension RxNorm: 7666391 [place] 1 [place] NASAL BID 04/23/2016 04/22/2016 Inactive iron-vitamin C 100 mg-250 mg tablet RxNorm: 025496 1 Tablet(s) PO daily 04/23/2016 08/31/2016 Inactive hydrocodone 10 mg-acetaminophen 325 mg tablet RxNorm: 275707 1 Tablet(s) PO Q4-6H as needed pain 04/14/2016 05/07/2016 Inactive [SAVINGS FOR NON-COVERED DRUGS -- BIN :746550, PCN: ASPROD1, Group: XXXXX, ID# [id number], Questions: . THIS IS NOT INSURANCE.] omeprazole 20 mg tablet,delayed release RxNorm: 206428 Tablet(s) 1 Tablet(s) PO BID 03/16/2016 09/11/2016 Inactive doxycycline hyclate 100 mg tablet RxNorm: 212343 1 Tablet(s) PO BID 03/16/2016 03/15/2016 Inactive doxycycline hyclate 100 mg tablet RxNorm: 677998 1 Tablet(s) PO BID 03/16/2016 03/22/2016 Inactive isosorbide mononitrate ER 30 mg tablet,extended release 24 hr RxNorm: 426344 1 Tablet(s) PO daily TAKE 1 TABLET BY MOUTH ONCE DAILY. 201509/11/2016 Inactive Diflucan 150 mg tablet RxNorm: 790420 1 Tablet(s) PO daily 03/03/2016 Inactive Diflucan 150 mg tablet RxNorm: 087543 1 Tablet(s) PO daily 03/08/2016 Inactive lisinopril 10 mg tablet RxNorm: 609896 Tablet(s) 1 tab(s) po daily 02/11/2016 12/23/2016 Inactive bupropion HCl XL 300 mg 24 hr tablet, extended release RxNorm: 993587 1 Tablet(s) PO daily 02/05/2016 12/23/2016 Inactive hydrocodone 10 mg-acetaminophen 325 mg tablet RxNorm: 465307 1 Tablet(s) PO Q4-6H as needed pain 01/31/2016 02/23/2016 Inactive [SAVINGS FOR NON-COVERED DRUGS -- BIN :246206, PCN: ASPROD1, Group: XXXXX, ID# [id number], Questions: . THIS IS NOT INSURANCE.] alprazolam 1 mg tablet RxNorm: 495758 1 Tablet(s) PO Q8 PRN as needed TAKE 1 TABLET THREE TIMES DAILY NEEDED FOR ANXIETY. 01/21/2016 06/21/2016 Inactive ( Appended: Controlled substance eRx refill - RxReferenceNumber: [id number]) buspirone 5 mg tablet RxNorm: 507391 1 Tablet(s) PO BID 201501/20/2016 Inactive betamethasone valerate 0.1 % topical ointment RxNorm: 262325 1 TOP TID on rash of hand and leg 01/14/2016 02/12/2016 Inactive hydrocodone 10 mg-acetaminophen 325 mg tablet RxNorm: 408064 1 Tablet(s) PO Q4-6H as needed pain 12/31/2015 01/23/2016 Inactive [SAVINGS FOR NON-COVERED DRUGS -- BIN :874664, PCN: ASPROD1, Group: XXXXX, ID# [id number], Questions: . THIS IS NOT INSURANCE.] cyanocobalamin (vit B-12) 1,000 mcg/mL injection solution RxNorm: 584071 Milliliter(s) Inj 12/03/2015 12/03/2015 Inactive hydrocodone 10 mg-acetaminophen 325 mg tablet RxNorm: 893454 1 Tablet(s) PO Q4-6H as needed pain 11/20/2015 12/13/2015 Inactive [SAVINGS FOR NON-COVERED DRUGS -- BIN :568608, PCN: ASPROD1, Group: XXXXX, ID# [id number], Questions: . THIS IS NOT INSURANCE.] Lipitor 40 mg tablet RxNorm: 595842 1 Tablet(s) PO QHS TAKE 1 TABLET BY MOUTH ONCE DAILY. 10/29/2015 10/22/2016 Inactive pt to take 2 tabs of lipitor 20mg. She will call when ready to fill 40mg. hydrocodone 10 mg-acetaminophen 325 mg tablet RxNorm: 329176 1 Tablet(s) PO Q4-6H as needed pain 10/04/2015 11/19/2015 Inactive [SAVINGS FOR NON-COVERED DRUGS -- BIN :747679, PCN: ASPROD1, Group: XXXXX, ID# [id number], Questions: . THIS IS NOT INSURANCE.] alprazolam 1 mg tablet RxNorm: 192715 1 Tablet(s) PO Q8 PRN as needed TAKE 1 TABLET THREE TIMES DAILY NEEDED FOR ANXIETY. 09/25/2015 01/20/2016 Inactive ( Appended: Controlled substance eRx refill - RxReferenceNumber: [id number]) isosorbide mononitrate ER 30 mg tablet,extended release 24 hr RxNorm: 441205 1 Tablet(s) PO daily TAKE 1 TABLET BY MOUTH ONCE DAILY. 201503/15/2016 Inactive hydrocodone 10 mg-acetaminophen 325 mg tablet RxNorm: 137562 1 Tablet(s) PO Q4-6H as needed pain 07/02/2015 08/18/2015 Inactive [SAVINGS FOR NON-COVERED DRUGS -- BIN :182230, PCN: ASPROD1, Group: XXXXX, ID# [id number], Questions: . THIS IS NOT INSURANCE.] omeprazole 20 mg tablet,delayed release RxNorm: 652991 1 Tablet(s) PO BID 06/25/2015 01/20/2016 Inactive [SAVINGS FOR UNINSURED PATIENTS -- BIN:314003, PCN: ASPROD1, Group: AME08, ID# [id number], Process claim through [employer], for questions: . THIS IS NOT INSURANCE.] gabapentin 100 mg capsule RxNorm: 261423 TAKE 1 CAPSULE BY MOUTH 3 TIMES DAILY * SCHEDULED PREVENTION MEDICINE* 06/25/2015 06/18/2016 Inactive Generic For:NEURONTIN 100MG 06/25/2015 9:18:27 AM N O T I C E Last quantity doesn't match original quantity hydrocodone 10 mg-acetaminophen 325 mg tablet RxNorm: 355114 1 Tablet(s) PO Q4-6H as needed pain 06/07/2015 06/30/2015 Inactive [SAVINGS FOR NON-COVERED DRUGS -- BIN :681272, PCN: ASPROD1, Group: XXXXX, ID# [id number], Questions: . THIS IS NOT INSURANCE.] Amitiza 8 mcg capsule RxNorm: 460720 1 Capsule(s) PO daily 05/0904/22/2016 Inactive cyanocobalamin (vit B-12) 1,000 mcg/mL injection solution RxNorm: 722486 Milliliter(s) Inj 04/12/2015 04/12/2015 Inactive alprazolam 1 mg tablet RxNorm: 504922 1 Tablet(s) PO Q8 PRN as needed TAKE 1 TABLET THREE TIMES DAILY NEEDED FOR ANXIETY. 04/12/2015 09/24/2015 Inactive ( Appended: Controlled substance eRx refill - RxReferenceNumber: [id number]) hydrocodone 10 mg-acetaminophen 325 mg tablet RxNorm: 746457 1 Tablet(s) PO Q4-6H as needed pain 04/09/2015 05/01/2015 Inactive [SAVINGS FOR NON-COVERED DRUGS -- BIN :893590, PCN: ASPROD1, Group: XXXXX, ID# [id number], Questions: . THIS IS NOT INSURANCE.] hydrocodone 10 mg-acetaminophen 325 mg tablet RxNorm: 298012 1 Tablet(s) PO Q4-6H as needed pain 03/12/2015 04/04/2015 Inactive [SAVINGS FOR NON-COVERED DRUGS -- BIN :378609, PCN: ASPROD1, Group: XXXXX, ID# [id number], Questions: . THIS IS NOT INSURANCE.] Anusol-HC 25 mg suppository RxNorm: 5044089 1 Suppository RTL QHS as needed 03/12/2015 04/10/2015 Inactive hydrocodone 10 mg-acetaminophen 325 mg tablet RxNorm: 861451 1 Tablet(s) PO Q4-6H as needed pain 02/08/2015 03/03/2015 Inactive [SAVINGS FOR NON-COVERED DRUGS -- BIN :978241, PCN: ASPROD1, Group: XXXXX, ID# [id number], Questions: . THIS IS NOT INSURANCE.] cyanocobalamin (vit B-12) 1,000 mcg/mL injection solution RxNorm: 812353 Milliliter(s) Inj 01/22/2015 01/22/2015 Inactive Vitamin D2 50,000 unit capsule RxNorm: 881396 1 Capsule(s) PO QW 01/10/2015 01/09/2015 Inactive Vitamin D2 50,000 unit capsule RxNorm: 372812 1 Capsule(s) PO QW 01/10/2015 04/09/2015 Inactive [SAVINGS FOR NON-COVERED DRUGS -- BIN:193847, PCN: ASPROD1, Group: XXXXX, ID# [id number], Questions: . THIS IS NOT INSURANCE.] Flonase 50 mcg/actuation nasal spray,suspension RxNorm: 8392244 1 [place] NASAL BID 01/09/2015 01/03/2016 Inactive [SAVINGS FOR UNINSURED PATIENTS -- BIN:956217, PCN: ASPROD1, Group: AME08, ID# [id number], Process claim through [employer], for questions: . THIS IS NOT INSURANCE.] Kenalog 40 mg/mL suspension for injection RxNorm: 5825570 1 Milliliter(s) Inj 01/08/2015 01/08/2015 Inactive Vitamin B-12 1,000 mcg/mL injection solution RxNorm: 924590 1 Milliliter(s) Inj 01/08/2015 01/08/2015 Inactive [SAVINGS FOR NON-COVERED DRUGS -- BIN:868192, PCN: ASPROD1, Group: XXXXX, ID# [id number], Questions: . THIS IS NOT INSURANCE.] bupropion HCl XL 300 mg 24 hr tablet, extended release RxNorm: 750844 1 Tablet(s) PO daily 01/08/2015 02/01/2016 Inactive this replaces the wellbutrin sr 150mg bid dose she currently has on file metoprolol tartrate 25 mg tablet RxNorm: 406498 1 Tablet(s) PO BID 12/17/2014 12/11/2015 Inactive hydrocodone 10 mg-acetaminophen 325 mg tablet RxNorm: 312918 1 Tablet(s) PO Q4-6H as needed pain 12/05/2014 12/28/2014 Inactive [SAVINGS FOR NON-COVERED DRUGS -- BIN :926564, PCN: ASPROD1, Group: XXXXX, ID# [id number], Questions: . THIS IS NOT INSURANCE.] cyanocobalamin (vit B-12) 1,000 mcg/mL injection solution RxNorm: 471771 Milliliter(s) Inj 11/28/2014 11/28/2014 Inactive [SAVINGS FOR NON-COVERED DRUGS -- BIN:545563, PCN: ASPROD1, Group: XXXXX, ID# [id number], Questions: [phone]. THIS IS NOT INSURANCE.] lisinopril 10 mg tablet RxNorm: 534160 1 tab(s) po daily 201402/10/2016 Inactive lisinopril 10 mg tablet RxNorm: 365645 1 Tablet(s) PO daily 11/04/2014 Inactive [SAVINGS FOR NON-COVERED DRUGS -- BIN:714002, PCN: ASPROD1, Group: XXXXX, ID# [id number], Questions: . THIS IS NOT INSURANCE.] alprazolam 1 mg tablet RxNorm: 912746 1 Tablet(s) PO Q8 PRN as needed TAKE 1 TABLET THREE TIMES DAILY NEEDED FOR ANXIETY. 10/31/2014 04/11/2015 Inactive ( Appended: Controlled substance eRx refill - RxReferenceNumber: [id number]) hydrocodone 10 mg-acetaminophen 325 mg tablet RxNorm: 138004 1 Tablet(s) PO Q4-6H as needed pain 10/31/2014 11/29/2014 Inactive [SAVINGS FOR NON-COVERED DRUGS -- BIN :462054, PCN: ASPROD1, Group: XXXXX, ID# [id number], Questions: . THIS IS NOT INSURANCE.] bupropion HCl XL 300 mg 24 hr tablet, extended release RxNorm: 129873 1 Tablet(s) PO daily 10/29/2014 01/07/2015 Inactive this replaces the wellbutrin sr 150mg bid dose she currently has on file cyanocobalamin (vit B-12) 1,000 mcg/mL injection solution RxNorm: 808916 Milliliter(s) Inj 10/04/2014 10/04/2014 Inactive [SAVINGS FOR UNINSURED PATIENTS - - BIN:458969, PCN: ASPROD1, Group: AME08, ID# [id number], Process claim through [employer], for questions: . THIS IS NOT INSURANCE.] hydrocodone 10 mg-acetaminophen 325 mg tablet RxNorm: 377674 1 Tablet(s) PO Q4-6H as needed pain 10/04/2014 10/30/2014 Inactive [SAVINGS FOR UNINSURED PATIENTS -- BIN:114310, PCN: ASPROD1, Group: AME08, ID# [id number], Process claim through [employer], for questions: . THIS IS NOT INSURANCE.] Flonase 50 mcg/actuation nasal spray,suspension RxNorm: 140223 1 [place] NASAL BID 10/04/2014 12/02/2014 Inactive [SAVINGS FOR UNINSURED PATIENTS -- BIN:779226, PCN: ASPROD1, Group: AME08, ID# [id number], Process claim through [employer], for questions: . THIS IS NOT INSURANCE.] hydrocodone 10 mg-acetaminophen 325 mg tablet RxNorm: 313728 1 Tablet(s) PO Q4-6H as needed pain 10/04/2014 11/02/2014 Inactive [SAVINGS FOR UNINSURED PATIENTS -- BIN:533511, PCN: ASPROD1, Group: AME08, ID# [id number], Process claim through [employer], for questions: . THIS IS NOT INSURANCE.] alprazolam 1 mg tablet RxNorm: 159426 1 Tablet(s) PO Q8 PRN as needed TAKE 1 TABLET THREE TIMES DAILY NEEDED FOR ANXIETY. 09/26/2014 10/30/2014 Inactive ( Appended: Controlled substance eRx refill - RxReferenceNumber: [id number]) cyanocobalamin (vit B-12) 1,000 mcg/mL injection solution RxNorm: 067951 Milliliter(s) Inj 09/10/2014 09/10/2014 Inactive [SAVINGS FOR UNINSURED PATIENTS - - BIN:127592, PCN: ASPROD1, Group: AME08, ID# [id number], Process claim through [employer], for questions: . THIS IS NOT INSURANCE.] omeprazole 20 mg tablet,delayed release RxNorm: 836486 1 Tablet(s) PO BID 09/10/2014 04/07/2015 Inactive [SAVINGS FOR UNINSURED PATIENTS -- BIN:232294, PCN: ASPROD1, Group: AME08, ID# [id number], Process claim through [employer], for questions: . THIS IS NOT INSURANCE.] hydrocodone 10 mg-acetaminophen 325 mg tablet RxNorm: 845253 1 Tablet(s) PO Q4-6H as needed pain 09/03/2014 10/02/2014 Inactive [SAVINGS FOR UNINSURED PATIENTS -- BIN:937640, PCN: ASPROD1, Group: AME08, ID# [id number], Process claim through [employer], for questions: . THIS IS NOT INSURANCE.] cyanocobalamin (vit B-12) 1,000 mcg/mL injection solution RxNorm: 545481 Milliliter(s) Inj 08/06/2014 08/06/2014 Inactive [SAVINGS FOR UNINSURED PATIENTS - - BIN:062788, PCN: ASPROD1, Group: AME08, ID# [id number], Process claim through [employer], for questions: . THIS IS NOT INSURANCE.] prednisone 20 mg tablet RxNorm: 673919 3 Tablet(s) PO daily 08/10/2014 Inactive hydrocodone 10 mg-acetaminophen 325 mg tablet RxNorm: 735136 1 Tablet(s) PO Q4-6H as needed pain 07/12/2014 08/10/2014 Inactive [SAVINGS FOR UNINSURED PATIENTS -- BIN:544422, PCN: ASPROD1, Group: AME08, ID# [id number], Process claim through [employer], for questions: . THIS IS NOT INSURANCE.] alprazolam 1 mg tablet RxNorm: 161563 1 Tablet(s) PO Q8 PRN as needed TAKE 1 TABLET THREE TIMES DAILY NEEDED FOR ANXIETY. 07/12/2014 09/25/2014 Inactive ( Appended: Controlled substance eRx refill - RxReferenceNumber: [id number]) cyanocobalamin (vit B-12) 1,000 mcg/mL injection solution RxNorm: 072585 Milliliter(s) Inj 07/12/2014 07/12/2014 Inactive [SAVINGS FOR UNINSURED PATIENTS - - BIN:599703, PCN: ASPROD1, Group: AME08, ID# [id number], Process claim through [employer], for questions: . THIS IS NOT INSURANCE.] hydrocodone 10 mg-acetaminophen 325 mg tablet RxNorm: 988050 1 Tablet(s) PO Q4-6H as needed pain 06/28/2014 07/11/2014 Inactive [SAVINGS FOR UNINSURED PATIENTS -- BIN:886468, PCN: ASPROD1, Group: AME08, ID# [id number], Process claim through [employer], for questions: . THIS IS NOT INSURANCE.] cyanocobalamin (vit B-12) 1,000 mcg/mL injection solution RxNorm: 912777 1 Milliliter(s) Inj 06/28/2014 06/28/2014 Inactive [SAVINGS FOR UNINSURED PATIENTS - - BIN:333532, PCN: ASPROD1, Group: AME08, ID# [id number], Process claim through [employer], for questions: . THIS IS NOT INSURANCE.] cyanocobalamin (vit B-12) 1,000 mcg/mL injection solution RxNorm: 206353 Milliliter(s) Inj 06/14/2014 06/14/2014 Inactive [SAVINGS FOR UNINSURED PATIENTS - - BIN:216113, PCN: ASPROD1, Group: AME08, ID# [id number], Process claim through [employer], for questions: . THIS IS NOT INSURANCE.] cyanocobalamin (vit B-12) 1,000 mcg/mL injection solution RxNorm: 768146 Milliliter(s) Inj 05/31/2014 05/31/2014 Inactive [SAVINGS FOR UNINSURED PATIENTS - - BIN:010458, PCN: ASPROD1, Group: AME08, ID# [id number], Process claim through [employer], for questions: . THIS IS NOT INSURANCE.] cyanocobalamin (vit B-12) 1,000 mcg/mL injection solution RxNorm: 344718 Milliliter(s) Inj 05/16/2014 05/16/2014 Inactive [SAVINGS FOR UNINSURED PATIENTS - - BIN:534215, PCN: ASPROD1, Group: AME08, ID# [id number], Process claim through [employer], for questions: . THIS IS NOT INSURANCE.] trazodone 50 mg tablet RxNorm: 127030 1 Tablet(s) PO QPM 201308/05/2014 Inactive [SAVINGS FOR UNINSURED PATIENTS -- BIN:[id number], PCN: [id number], Group: [id number], ID # [id number], Process claim through [employer], for questions: . THIS IS NOT INSURANCE.] alprazolam 1 mg tablet RxNorm: 583133 1 Tablet(s) PO Q8 PRN as needed TAKE 1 TABLET THREE TIMES DAILY NEEDED FOR ANXIETY. 04/27/2014 07/11/2014 Inactive ( Appended: Controlled substance eRx refill - RxReferenceNumber: [id number]) cyanocobalamin (vit B-12) 1,000 mcg/mL injection solution RxNorm: 694496 1 Milliliter(s) Inj 04/05/2014 04/05/2014 Inactive [SAVINGS FOR UNINSURED PATIENTS - - BIN:[id number], PCN: ASPROD1, Group: [id number], ID# [id number], Process claim through [employer], for questions: . THIS IS NOT INSURANCE.] gabapentin 100 mg capsule RxNorm: 924681 TAKE 1 CAPSULE BY MOUTH 3 TIMES DAILY * SCHEDULED PREVENTION MEDICINE* 03/29/2014 03/23/2015 Inactive Generic For:NEURONTIN 100MG 03/29/2014 3:08:32 PM N O T I C E Last dispense quantity was less than original quantity written hydrocodone 10 mg-acetaminophen 325 mg tablet RxNorm: 863364 1 Tablet(s) PO Q4-6H as needed pain 03/05/2014 06/27/2014 Inactive [SAVINGS FOR UNINSURED PATIENTS -- BIN:[id number], PCN: [id number], Group: [id number], ID# [id number], Process claim through [employer], for questions: . THIS IS NOT INSURANCE.] bupropion HCl XL 300 mg 24 hr tablet, extended release RxNorm: 818073 1 Tablet(s) PO daily 03/05/2014 10/28/2014 Inactive this replaces the wellbutrin sr 150mg bid dose she currently has on file cyanocobalamin (vit B-12) 1,000 mcg/mL injection solution RxNorm: 490152 Milliliter(s) Inj 02/01/2014 02/01/2014 Inactive betamethasone valerate 0.1 % topical cream RxNorm: 100886 1 Application TOP BID 02/01/2014 02/01/2014 Inactive lisinopril 10 mg tablet RxNorm: 820664 1 Tablet(s) PO daily 07/201403/02/2014 Inactive Diflucan 150 mg tablet RxNorm: 254773 1 Tablet(s) PO every other day 01/22/2014 02/04/2014 Inactive doxycycline hyclate 100 mg tablet RxNorm: 398364 1 Tablet(s) PO BID 12/29/2013 12/28/2013 Inactive cyanocobalamin (vit B-12) 1,000 mcg/mL injection solution RxNorm: 849316 Milliliter(s) Inj 12/29/2013 12/29/2013 Inactive doxycycline hyclate 100 mg tablet RxNorm: 652097 1 Tablet(s) PO BID 12/29/2013 01/04/2014 Inactive metoprolol tartrate 25 mg tablet RxNorm: 803561 1 Tablet(s) PO BID 12/14/2013 12/08/2014 Inactive trimethoprim 0.1 %-polymyxin B 10,000 unit/mL eye drops RxNorm: 114036 2 Drop(s) OPH TID right eye 12/07/2013 12/13/2013 Inactive nystatin-triamcinolone 100,000 unit/g-0.1 % topical cream RxNorm: 9366900 1 TOP BID 12/07/2013 12/16/2013 Inactive Lipitor 20 mg tablet RxNorm: 461134 1 Tablet(s) PO QHS TAKE 1 TABLET BY MOUTH ONCE DAILY. 11/30/2013 11/24/2014 Inactive Lipitor 20 mg tablet RxNorm: 614599 1 Tablet(s) PO QHS TAKE 1 TABLET BY MOUTH ONCE DAILY. 11/30/2013 11/29/2013 Inactive hydrocodone 10 mg-acetaminophen 325 mg tablet RxNorm: 776610 1 Tablet(s) PO Q6 PRN 11/24/2013 No Stop Date Active Carafate 1 gram tablet RxNorm: 980667 1 Tablet(s) PO QID TAKE 1 TABLET BY MOUTH 4 TIMES DAILY. 10/09/2013 04/22/2016 Inactive alprazolam 1 mg tablet RxNorm: 564690 1 Tablet(s) PO Q8 PRN TAKE 1 TABLET THREE TIMES DAILY NEEDED FOR ANXIETY. 10/09/2013 No Stop Date Active (Appended: Controlled substance eRx refill - RxReferenceNumber: [id number]) isosorbide mononitrate ER 30 mg tablet,extended release 24 hr RxNorm: 395881 1 Tablet(s) PO daily TAKE 1 TABLET BY MOUTH ONCE DAILY. 201304/29/2014 Inactive hydrocodone 10 mg-acetaminophen 325 mg tablet RxNorm: 761867 Tablet(s) PO 09/04/2013 No Stop Date Active bupropion HCl XL 150 mg 24 hr tablet, extended release RxNorm: 332106 1 Tablet(s) PO daily 09/04/2013 03/04/2014 Inactive this replaces the wellbutrin sr 150mg bid dose she currently has on file Lipitor 20 mg tablet RxNorm: 346726 Tablet(s) PO TAKE 1 TABLET BY MOUTH ONCE DAILY. 08/21/2013 11/29/2013 Inactive hydrocodone 5 mg-acetaminophen 325 mg tablet RxNorm: 6144634 1 Tablet(s) PO Q6 PRN 08/11/2013 No Stop Date Active Lipitor 20 mg tablet RxNorm: 065133 Tablet(s) PO TAKE 1 TABLET BY MOUTH ONCE DAILY. 08/10/2013 08/20/2013 Inactive alprazolam 1 mg tablet RxNorm: 445685 1 Tablet(s) PO Q8 PRN TAKE 1 TABLET THREE TIMES DAILY NEEDED FOR ANXIETY. 08/10/2013 No Stop Date Active (Appended: Controlled substance eRx refill - RxReferenceNumber: [id number]) Lipitor 20 mg tablet RxNorm: 820759 Tablet(s) PO TAKE 1 TABLET BY MOUTH ONCE DAILY. 07/17/2013 08/09/2013 Inactive Lipitor 20 mg tablet RxNorm: 456281 1 Tablet(s) PO QPM TAKE 1 TABLET BY MOUTH ONCE DAILY. 07/05/2013 07/16/2013 Inactive Lipitor 20 mg tablet RxNorm: 979390 Tablet(s) PO TAKE 1 TABLET BY MOUTH ONCE DAILY. 06/19/2013 07/04/2013 Inactive Carafate 1 gram tablet RxNorm: 148866 Tablet(s) PO TAKE 1 TABLET BY MOUTH 4 TIMES DAILY. 06/16/2013 10/08/2013 Inactive isosorbide mononitrate ER 30 mg tablet,extended release 24 hr RxNorm: 403126 Tablet (s) PO TAKE 1 TABLET BY MOUTH ONCE DAILY. 06/16/2013 10/01/2013 Inactive hydrocodone 10 mg-acetaminophen 325 mg tablet RxNorm: 094727 Tablet(s) PO 05/18/2013 No Stop Date Active Lipitor 20 mg tablet RxNorm: 720907 Tablet(s) PO TAKE 1 TABLET BY MOUTH ONCE DAILY. 04/27/2013 06/18/2013 Inactive ketorolac 60 mg/2 mL IM RxNorm: 954987 1 Milliliter(s) IM 04/1804/18/2013 Inactive hydrocodone 10 mg-acetaminophen 325 mg tablet RxNorm: 2491171 Tablet(s) PO 04/10/2013 No Stop Date Active hydrocodone 5 mg-acetaminophen 325 mg tablet RxNorm: 7730084 1 Tablet(s) PO Q6 PRN 04/10/2013 No Stop Date Active alprazolam 1 mg tablet RxNorm: 604274 1 Tablet(s) PO Q8 PRN TAKE 1 TABLET THREE TIMES DAILY NEEDED FOR ANXIETY. 03/16/2013 No Stop Date Active (Appended: Controlled substance eRx refill - RxReferenceNumber: [id number]) metoprolol tartrate 25 mg tablet RxNorm: 005583 1 Tablet(s) PO BID 03/16/2013 10/11/2013 Inactive citalopram 40 mg tablet RxNorm: 086313 1 Tablet(s) PO QPM 03/1603/09/2014 Inactive hydrocodone 5 mg-acetaminophen 325 mg tablet RxNorm: 7311292 1 Tablet(s) PO Q6 PRN 01/26/2013 No Stop Date Active doxycycline hyclate 100 mg tablet,delayed release RxNorm: 348600 1 Tablet(s) PO BID 01/26/2013 02/08/2013 Inactive Diflucan 150 mg tablet RxNorm: 057509 1 Tablet(s) PO daily 01/201302/04/2013 Inactive gabapentin 100 mg capsule RxNorm: 600505 Capsule(s) PO TAKE (1) CAPSULE BY MOUTH THREE TIMES DAILY. 01/19/2013 07/13/2016 Inactive gabapentin 100 mg capsule RxNorm: 505806 Capsule(s) PO TAKE (1) CAPSULE BY MOUTH THREE TIMES DAILY. 01/19/2013 03/28/2014 Inactive prednisone 10 mg tablets in a dose pack RxNorm: 888730 Tablet(s) PO 12/27/2012 01/01/2013 Inactive Bactroban 2 % Topical Ointment RxNorm: 106619 1 Application TOP BID 12/27/2012 01/02/2013 Inactive gabapentin 100 mg capsule RxNorm: 550340 1 Capsule(s) PO TID 01/18/2013 Inactive TAKE 1 CAPSULE BY MOUTH 3 TIMES DAILY (SCHEDULED) Lipitor 20 mg tablet RxNorm: 307918 Tablet(s) PO TAKE 1 TABLET BY MOUTH ONCE DAILY. 11/17/2012 04/26/2013 Inactive citalopram 40 mg tablet RxNorm: 414275 1 Tablet(s) PO daily 03/15/2013 Inactive citalopram 40 mg tablet RxNorm: 886409 1 Tablet(s) PO daily 11/13/2012 Inactive alprazolam 1 mg tablet RxNorm: 324595 Tablet(s) PO TAKE 1 TABLET THREE TIMES DAILY NEEDED FOR ANXIETY. 10/04/2012 Inactive (Appended: Controlled substance eRx refill - RxReferenceNumber: [id number]) bupropion HCl XL 300 mg 24 hr tablet, extended release RxNorm: 339371 1 Tablet(s) PO daily 09/21/2012 09/03/2013 Inactive this replaces the wellbutrin sr 150mg bid dose she currently has on file hydrocodone 5 mg-acetaminophen 325 mg tablet RxNorm: 2993056 1 Tablet(s) PO Q6 PRN 09/08/2012 09/07/2012 Inactive hydrocodone-acetaminophen 5 mg-325 mg tablet RxNorm: 6811725 1 Tablet(s) PO Q6 PRN 09/08/2012 No Stop Date Active Wellbutrin SR 150 mg tablet,sustained-release RxNorm: 866746 Tablet(s) PO TAKE 1 TABLET BY MOUTH TWICE DAILY. 09/01/2012 Inactive clindamycin 300 mg capsule RxNorm: 184866 1 Capsule(s) PO BID 08/02/2012 08/15/2012 Inactive hydrocodone-acetaminophen 5 mg-325 mg tablet RxNorm: 1373321 1 Tablet(s) PO Q6 PRN 08/02/2012 09/07/2012 Inactive metronidazole 500 mg tablet RxNorm: 722086 1 Tablet(s) PO TID 08/02/2012 08/15/2012 Inactive Kenalog 40 mg/mL Susp for Injection RxNorm: 8000197 Milliliter(s) Inj 06/27/2012 06/27/2012 Inactive prednisone 10 mg tablets in a dose pack RxNorm: 409394 1 Tablet(s) PO as directed 06/27/2012 07/06/2012 Inactive alprazolam 1 mg tablet RxNorm: 990160 Tablet(s) PO 06/10/2012 10/04/2012 Inactive TAKE 1 TABLET THREE TIMES DAILY NEEDED FOR ANXIETY. (Appended: Controlled substance eRx refill - RxReferenceNumber: [id number]) Kenalog 40 mg/mL Susp for Injection RxNorm: 1578460 1 Milliliter(s) Inj 06/06/2012 06/06/2012 Inactive Voltaren 1 % Topical Gel RxNorm: 729956 1 Application TOP QID apply two grams to right elbow, 4 grams to right shoulder and neck, and 4 grams to sacroiliac joint 4 times daily 06/06/2012 06/05/2012 Inactive Voltaren 1 % Topical Gel RxNorm: 782170 1 Application TOP QID apply two grams to right elbow, 4 grams to right shoulder and neck, and 4 grams to sacroiliac joint 4 times daily 06/06/2012 08/31/2016 Inactive alprazolam 1 mg tablet RxNorm: 739091 Tablet(s) PO 06/06/2012 06/09/2012 Inactive TAKE 1 TABLET THREE TIMES DAILY NEEDED FOR ANXIETY. (Appended: Controlled substance eRx refill - RxReferenceNumber: [id number]) alprazolam 1 mg tablet RxNorm: 946512 Tablet(s) PO 06/01/2012 06/06/2012 Inactive TAKE 1 TABLET THREE TIMES DAILY NEEDED FOR ANXIETY. (Appended: Controlled substance eRx refill - RxReferenceNumber: [id number]) hydrocodone-acetaminophen 5 mg-325 mg tablet RxNorm: 3378810 1 Tablet(s) PO Q6 PRN 05/16/2012 08/01/2012 Inactive isosorbide mononitrate ER 30 mg tablet,extended release 24 hr RxNorm: 559339 Tablet (s) PO 03/14/2012 06/15/2013 Inactive TAKE 1 TABLET BY MOUTH ONCE DAILY. Lipitor 20 mg tablet RxNorm: 565897 Tablet(s) PO 03/14/2012 11/16/2012 Inactive TAKE 1 TABLET BY MOUTH ONCE DAILY. gabapentin 100 mg Cap RxNorm: 187711 Capsule(s) PO 03/03/2012 03/02/2012 Inactive TAKE 1 CAPSULE BY MOUTH 3 TIMES DAILY (SCHEDULED) isosorbide mononitrate ER 30 mg tablet,extended release 24 hr RxNorm: 735895 1 Tablet(s) PO daily 03/03/2012 No Stop Date Active gabapentin 100 mg capsule RxNorm: 198780 Capsule(s) PO 201112/18/2012 Inactive TAKE 1 CAPSULE BY MOUTH 3 TIMES DAILY (SCHEDULED) Celexa 20 mg Tab RxNorm: 665640 1 Tablet(s) PO daily 201111/14/2012 Inactive Vitamin B-12 1,000 mcg/mL Injection RxNorm: 199276 Milliliter(s) Inj 02/08/2012 02/08/2012 Inactive Wellbutrin SR 150 mg tablet,sustained-release RxNorm: 086382 1 Tablet(s) PO daily 02/08/2012 09/20/2012 Inactive Rocephin 500 mg Solution for Injection RxNorm: 312459 Inj 01/3102/01/2012 Inactive cefdinir 300 mg Cap RxNorm: 520570 1 Capsule(s) PO BID 201102/29/2012 Inactive triamcinolone acetonide 0.1 % Dental Paste RxNorm: 3280173 1 Application [place] QID 01/22/2012 01/28/2012 Inactive alprazolam 1 mg tablet RxNorm: 196684 1 Tablet(s) PO TID PRN 06/01/2012 Inactive alprazolam 1 mg Tab RxNorm: 549981 1 Tablet(s) PO TID PRN 01/10/2012 Inactive Carafate 1 gram tablet RxNorm: 781991 1 Tablet(s) PO QID 201112/04/2012 Inactive hydrocodone-acetaminophen 5 mg-325 mg Tab RxNorm: 9483268 1-2 Tablet(s) PO Q6 PRN 11/13/2011 12/12/2011 Inactive Kenalog 40 mg/mL Susp for Injection RxNorm: 6792289 1 Milliliter(s) Inj 10/20/2011 10/20/2011 Inactive Bactrim DS 800 mg-160 mg Tab RxNorm: 414193 1 Tablet(s) PO BID 10/19/2011 02/29/2012 Inactive alprazolam 1 mg Tab RxNorm: 507283 1 Tablet(s) PO TID PRN 11/17/2011 Inactive hydrocodone-acetaminophen 5 mg-325 mg Tab RxNorm: 4697635 1-2 Tablet(s) PO Q6 PRN 10/15/2011 11/12/2011 Inactive hydrocodone-acetaminophen 5 mg-325 mg Tab RxNorm: 8548276 1-2 Tablet(s) PO Q6 PRN 09/24/2011 10/14/2011 Inactive citalopram 40 mg Tab RxNorm: 210274 1 Tablet(s) PO daily 201102/29/2012 Inactive alprazolam 1 mg Tab RxNorm: 051748 1 Tablet(s) PO TID PRN 10/201110/18/2011 Inactive Wellbutrin SR 150 mg Tab RxNorm: 951207 1 Tablet(s) PO BID 10/201102/07/2012 Inactive Wellbutrin SR 150 mg tablet,sustained-release RxNorm: 079426 1 Tablet(s) PO BID 08/25/2011 02/01/2012 Inactive Lipitor 20 mg tablet RxNorm: 191886 1 Tablet(s) PO daily 201002/14/2012 Inactive Percocet 10 mg-325 mg Tab RxNorm: 2837087 1 Tablet(s) PO Q6 PRN 08/13/2011 02/29/2012 Inactive hydrocodone-acetaminophen 5 mg-325 mg Tab RxNorm: 5769213 1-2 Tablet(s) PO Q6 PRN 08/04/2011 09/23/2011 Inactive naproxen 500 mg tablet RxNorm: 116646 1 Tablet(s) PO BID 201001/25/2012 Inactive hydrochlorothiazide 25 mg Tab RxNorm: 001440 1 Tablet(s) PO daily 07/28/2011 01/23/2012 Inactive ketorolac 60 mg/2 mL IM RxNorm: 078617 Milliliter(s) IM 201007/15/2011 Inactive ketorolac 60 mg/2 mL IM RxNorm: 972766 Milliliter(s) IM 201007/02/2011 Inactive ketorolac 15 mg/mL Injection RxNorm: 143729 1 Milliliter(s) Inj 06/24/2011 07/02/2011 Inactive hydrocodone-acetaminophen 5 mg-325 mg Tab RxNorm: 7680666 1-2 Tablet(s) PO Q6 PRN 06/16/2011 08/03/2011 Inactive gabapentin 100 mg Cap RxNorm: 017791 1 Capsule(s) PO TID 201002/01/2012 Inactive lisinopril 10 mg tablet RxNorm: 671292 1 Tablet(s) PO daily 01/25/2012 Inactive alprazolam 1 mg Tab RxNorm: 083596 1 Tablet(s) PO TID PRN 08/24/2011 Inactive Mobic 15 mg Tab RxNorm : 945814 1 Tablet(s) PO daily 05/08/2011 02/01/2012 Inactive triamcinolone acetonide 0.5 % topical cream RxNorm: 5212210 TOP BID No Start Date Active Lipitor 10 mg Tab RxNorm: 308306 1 Tablet(s) PO daily No Start Date 02/01/2012 Inactive citalopram 40 mg Tab RxNorm: 400244 1 Tablet(s) PO daily No Start Date 02/01/2012 Inactive colestipol 1 gram Tab RxNorm: 9513443 1 Tablet(s) PO daily No Start Date 01/31/2012 Inactive hydrocodone-acetaminophen 5 mg-325 mg tablet RxNorm: 7352086 1 Tablet(s) PO PRN 1 tab q6hrs prn No Start Date 05/15/2012 Inactive lisinopril 10 mg Tab RxNorm: 211076 1 Tablet(s) PO daily No Start Date 06/15/2011 Inactive metoprolol succinate ER 25 mg 24 hr Tab RxNorm: 865478 1 Tablet(s) PO daily No Start Date 02/01/2012 Inactive hydrocodone-acetaminophen 5 mg-325 mg Tab RxNorm: 5386816 1 Tablet(s) PO Q6 PRN No Start Date 06/15/2011 Inactive hydrocodone 10 mg-acetaminophen 325 mg tablet RxNorm: 3155576 Tablet(s) PO No Start Date 04/10/2013 Inactive aspirin, buffered 81 mg Tab RxNorm: 499393 1 Tablet(s) PO daily No Start Date 04/16/2011 Inactive citalopram 40 mg Tab RxNorm: 317991 1 Tablet(s) PO daily No Start Date 02/01/2012 Inactive aspirin 81 mg Cap, Delayed Release RxNorm: 994183 1 Capsule(s) PO daily No Start Date 08/31/2016 Inactive isosorbide mononitrate ER 30 mg 24 hr Tab RxNorm: 428835 1 Tablet(s) PO daily No Start Date 02/01/2012 Inactive Fish Oil 1,000 mg Cap RxNorm: 1 Capsule(s) PO daily No Start Date 08/31/2016 Inactive prednisone 10 mg Tab RxNorm: 051177 1 Tablet(s) PO as doctor directed 6 po daily x 2days, then 4 daily x 2days, then2 daily x 2days, then 1 daily x 2days, then 1 /2 dailyx 4 d No Start Date 02/01/2012 Inactive alprazolam 1 mg Tab RxNorm: 083597 1 Tablet(s) PO TID PRN No Start Date 06/15/2011 Inactive Diflucan 150 mg tablet RxNorm: 518216 1 Tablet(s) PO every other day No Start Date 01/21/2014 Inactive betamethasone, augmented 0.05 % Topical Cream RxNorm: 647347 1 Application TOP No Start Date 02/01/2012 Inactive Carafate 1 gram Tab RxNorm: 760849 1 Tablet(s) PO AC & HS No Start Date 02/01/2012 Inactive Lyrica 50 mg Cap RxNorm: 537599 1 Capsule(s) PO TID No Start Date 02/01/2012 Inactive Fish Oil Oral RxNorm: Oral No Start Date Inactive Carafate 1 gram Tab RxNorm: 615137 1 Gram(s) PO AC & HS 1gm before meals and at bedtime No Start Date 02/01/2012 Inactive Zofran 4 mg tablet RxNorm: 772396 1 Tablet(s) PO TID as needed No Start Date 02/25/2017 Inactive metoprolol tartrate 25 mg tablet RxNorm: 655575 1 Tablet(s) PO daily No Start Date 03/15/2013 Inactive colestipol 1 gram Tab RxNorm: 2985973 1 Gram(s) PO daily No Start Date 08/31/2016 Inactive hydrochlorothiazide 25 mg Tab RxNorm: 628392 1 Tablet(s) PO daily No Start Date 01/25/2012 Inactive acyclovir 400 mg Tab RxNorm: 203953 1 Tablet(s) PO QID QID x 10 days then BID No Start Date 02/01/2012 Inactive Mobic 15 mg Tab RxNorm : 458957 1 Tablet(s) PO daily No Start Date 05/07/2011 Inactive hydrochlorothiazide 25 mg Tab RxNorm: 111011 1 Tablet(s) PO daily No Start Date 07/27/2011 Inactive isosorbide mononitrate ER 30 mg 24 hr Tab RxNorm: 592886 1 Tablet(s) PO daily No Start Date 01/31/2012 Inactive Lipitor 10 mg Tab RxNorm: 075025 1 Tablet(s) PO daily No Start Date 08/18/2011 Inactive alprazolam 1 mg Tab RxNorm: 679902 1 Tablet(s) PO PRN 1mg tid prn No Start Date 06/15/2011 Inactive Wellbutrin SR 150 mg Tab RxNorm: 684261 1 Tablet(s) PO BID No Start Date 02/01/2012 Inactive Medication Administered Medication Codes Instructions Start Date Status cyanocobalamin (vit B-12) 1,000 mcg/mL injection solution RxNorm: 098098 1Milliliter 05/27/2017 No longer Active cyanocobalamin (vit B-12) 1,000 mcg/mL injection solution RxNorm: 003976 1Milliliter 04/27/2017 No longer Active cyanocobalamin (vit B-12) 1,000 mcg/mL injection solution RxNorm: 705356 1Milliliter 04/09/2017 No longer Active cyanocobalamin (vit B-12) 1,000 mcg/mL injection solution RxNorm: 727890 Milliliter 03/23/2017 No longer Active cyanocobalamin (vit B-12) 1,000 mcg/mL injection solution RxNorm: 398417 Milliliter 03/11/2017 No longer Active Kenalog 40 mg/mL suspension for injection RxNorm: 1212810 1Milliliter 02/22/2017 No longer Active cyanocobalamin (vit B-12) 1,000 mcg/mL injection solution RxNorm: 330005 1Milliliter 10/14/2016 No longer Active cyanocobalamin (vit B-12) 1,000 mcg/mL injection solution RxNorm: 659739 Milliliter 09/16/2016 No longer Active cyanocobalamin (vit B-12) 1,000 mcg/mL injection solution RxNorm: 833589 1Milliliter 08/11/2016 No longer Active cyanocobalamin (vit B-12) 1,000 mcg/mL injection solution RxNorm: 965734 Milliliter 12/03/2015 No longer Active cyanocobalamin (vit B-12) 1,000 mcg/mL injection solution RxNorm: 236656 Milliliter 04/12/2015 No longer Active cyanocobalamin (vit B-12) 1,000 mcg/mL injection solution RxNorm: 502464 Milliliter 01/22/2015 No longer Active Vitamin B-12 1,000 mcg/mL injection solution RxNorm: 271340 1Milliliter 01/08/2015 No longer Active Kenalog 40 mg/mL suspension for injection RxNorm: 4862084 1Milliliter 01/08/2015 No longer Active cyanocobalamin (vit B-12) 1,000 mcg/mL injection solution RxNorm: 718457 Milliliter 11/28/2014 No longer Active cyanocobalamin (vit B-12) 1,000 mcg/mL injection solution RxNorm: 969169 Milliliter 10/04/2014 No longer Active cyanocobalamin (vit B-12) 1,000 mcg/mL injection solution RxNorm: 411345 Milliliter 09/10/2014 No longer Active cyanocobalamin (vit B-12) 1,000 mcg/mL injection solution RxNorm: 553520 Milliliter 08/06/2014 No longer Active cyanocobalamin (vit B-12) 1,000 mcg/mL injection solution RxNorm: 634330 Milliliter 07/12/2014 No longer Active cyanocobalamin (vit B-12) 1,000 mcg/mL injection solution RxNorm: 816339 1Milliliter 06/28/2014 No longer Active cyanocobalamin (vit B-12) 1,000 mcg/mL injection solution RxNorm: 545669 Milliliter 06/14/2014 No longer Active cyanocobalamin (vit B-12) 1,000 mcg/mL injection solution RxNorm: 023404 Milliliter 05/31/2014 No longer Active cyanocobalamin (vit B-12) 1,000 mcg/mL injection solution RxNorm: 015901 Milliliter 05/16/2014 No longer Active cyanocobalamin (vit B-12) 1,000 mcg/mL injection solution RxNorm: 815995 1Milliliter 04/05/2014 No longer Active cyanocobalamin (vit B-12) 1,000 mcg/mL injection solution RxNorm: 201625 Milliliter 02/01/2014 No longer Active cyanocobalamin (vit B-12) 1,000 mcg/mL injection solution RxNorm: 058532 Milliliter 12/29/2013 No longer Active ketorolac 60 mg/2 mL IM RxNorm: 002275 1Milliliter 04/18/2013 No longer Active Kenalog 40 mg/mL Susp for Injection RxNorm: 2256161 Milliliter 06/27/2012 No longer Active Kenalog 40 mg/mL Susp for Injection RxNorm: 0128205 1Milliliter 06/06/2012 No longer Active Vitamin B-12 1,000 mcg/mL Injection RxNorm: 422353 Milliliter 02/08/2012 No longer Active Rocephin 500 mg Solution for Injection RxNorm: 518514 02/01/2012 No longer Active Kenalog 40 mg/mL Susp for Injection RxNorm: 3404235 1Milliliter 10/20/2011 No longer Active ketorolac 60 mg/2 mL IM RxNorm: 859494 Milliliter 07/15/2011 No longer Active ketorolac 60 mg/2 mL IM RxNorm: 133602 Milliliter 07/02/2011 No longer Active Immunizations Vaccine Codes Date Status Influenza CVX: 141 05/27/2017 completed Influenza CVX: 141 04/23/2016 completed Pneumococcal CVX: 33 08/06/2014 completed Pneumococcal (Adult) CVX: 33 08/06/2014 completed Influenza CVX: 141 05/16/2014 completed Assessments Condition Codes Effective Dates Essential (primary) hypertension ICD-10: I10 ICD-9: 401.1 10/05/2017 Essential (primary) hypertension ICD-10: I10 ICD-9: 401.9 09/28/2017 Chronic pain syndrome ICD-10: G89.4 ICD-9: 338.4 09/03/2017 Other idiopathic peripheral autonomic neuropathy ICD-10: [...] Visit Reason For Visit Effective Dates Notes hypertension 10/05/2017 depression 09/03/2017 depression 05/27/2017 blood pressure followup [...] ref lab 12/25/2016 Vitamin D 25 Oh [id number] VITAMIN D, 25 HYDROXY 30.42 ng/mL Cbc [...] 30.1 pg 08/11/2016 Cbc With Differential Ord2 [place]% 8.4 % 08/11/2016 Cbc With Differential Ord2 [...] 1.87 K/ul 08/11/2016 Cbc With Differential Ord2 [place] ABS# 0.6 K/ul 08/11/2016 Cbc With Differential Ord2 [place] ABS# 0.1 K/ul 08/11/2016 Cbc With Differential Ord2 Baso ABS# 0.0 K/ul 08/11/2016 Tsh Ord6 hTSH II 0.90 uIU/mL 08/11/2016 Iron Ord72 Iron 135 ug/dl 08/11/2016 Ferritin Ord22 FERRITIN 135.3 ng/mL 08/11/2016 B12 Dsa603 B12 >1500.00 pg/ml 08/11/2016 Comp Metabolic Dnl656 NA 138 mEq/L 08/11/2016 Comp Metabolic Bhe398 K 4.6 mEq/L 08/11/2016 Comp Metabolic Ewx268 CL 102 mEq/L 08/11/2016 Comp Metabolic Uxl084 CO2 29.0 mEq/L 08/11/2016 Comp Metabolic Atf514 ANION GAP 12 08/11/2016 Comp Metabolic Brq352 GLUCOSE 83 mg/dL 08/11/2016 Comp Metabolic Nvf121 Creat 1.0 mg/dL 08/11/2016 Comp Metabolic Uld305 eGFR 60 ml/min/1.73m2 08/11/2016 Comp Metabolic Iva157 BUN 14 mg/dL 08/11/2016 Comp Metabolic Icz896 B/C Ratio 14.6 Ratio 08/11/2016 Comp Metabolic Oon433 CALCIUM 10.2 mg/dL 08/11/2016 Comp Metabolic Zzs026 ALK PHOS 69 U/L 08/11/2016 Comp Metabolic Qdg939 AST(SGOT) 15 U/L 08/11/2016 Comp Metabolic Qyw299 ALT(SGPT) 12 U/L 08/11/2016 Comp Metabolic Xxt745 BILI T 1.3 mg/dL 08/11/2016 Comp Metabolic Avf180 ALBUMIN 4.7 g/dL 08/11/2016 Comp Metabolic Trl070 TPRO 7.3 g/dL 08/11/2016 Comp Metabolic Tuo143 GLOB 2.6 g/dL 08/11/2016 Comp Metabolic Ejy270 A/G Ratio 1.9 Ratio 08/11/2016 Comp Metabolic Vps588 Osmo 275 mOsmo 08/11/2016 Culture Urine [id number] URINE CULTURE SEE NOTES 06/01/2016 Culture Urine [id number] Continued Results 06/01/2016 Urine Culture Ucult Complete [...] Ord15 CALCIUM 9.6 mg/dL 05/18/2016 Comp Metabolic Pal819 NA 143 mEq/L 04/28/2016 Comp Metabolic Jcj815 K 3.3 mEq/L 04/28/2016 Comp Metabolic Wtj744 CL 108 mEq/L 04/28/2016 Comp Metabolic Msj489 CO2 27.0 mEq/L 04/28/2016 Comp Metabolic Cbg018 ANION GAP 11 04/28/2016 Comp Metabolic Cbd557 GLUCOSE 103 mg/dL 04/28/2016 Comp Metabolic Xxw965 Creat 0.8 mg/dL 04/28/2016 Comp Metabolic Usa246 eGFR 79 ml/min/1.73m2 04/28/2016 Comp Metabolic Xtq930 BUN 11 mg/dL 04/28/2016 Comp Metabolic Gls423 B/C Ratio 14.5 Ratio 04/28/2016 Comp Metabolic Wue582 CALCIUM 9.1 mg/dL 04/28/2016 Comp Metabolic Bhx509 ALK PHOS 60 U/L 04/28/2016 Comp Metabolic Cyg980 AST(SGOT) 15 U/L 04/28/2016 Comp Metabolic Gwb661 ALT(SGPT) 13 U/L 04/28/2016 Comp Metabolic Fxi768 BILI T 1.0 mg/dL 04/28/2016 Comp Metabolic Kuk484 ALBUMIN 4.1 g/dL 04/28/2016 Comp Metabolic Pal749 TPRO 6.5 g/dL 04/28/2016 Comp Metabolic Dkp830 GLOB 2.4 g/dL 04/28/2016 Comp Metabolic Vyo283 A/G Ratio 1.7 Ratio 04/28/2016 Comp Metabolic Pdn747 Osmo 285 mOsmo 04/28/2016 Cbc With Differential [...] 29.1 pg 04/28/2016 Cbc With Differential Ord2 [place]% 9.2 % 04/28/2016 Cbc With Differential Ord2 [...] 1.40 K/ul 04/28/2016 Cbc With Differential Ord2 [place] ABS# 0.5 K/ul 04/28/2016 Cbc With Differential Ord2 Eos ABS# 0.2 K/ul 04/28/2016 Cbc With Differential Ord2 Baso ABS# 0.0 K/ul 04/28/2016 Lipid Ord30 CHOL 131 mg/dL 04/28/2016 Lipid Ord30 HDL 36.0 mg/dl 04/28/2016 Lipid Ord30 TRIG 134 mg/dL 04/28/2016 Lipid Ord30 LDL 68 mg/dL 04/28/2016 Lipid Ord30 C/HDL 3.6 Ratio 04/28/2016 Tsh Ord6 hTSH II 1.10 uIU/mL 04/28/2016 Culture Urine [id number] URINE CULTURE SEE NOTES 03/16/2016 Culture Urine [id number] Continued Results 03/16/2016 Urine Culture Ucult Complete >100,000 col/ml aerobic growth sent to ref lab 03/14/2016 Lipid Ord30 CHOL 226 mg/dL 10/15/2015 Lipid Ord30 HDL 44.0 mg/dl 10/15/2015 Lipid Ord30 TRIG 220 mg/dL 10/15/2015 Lipid Ord30 LDL 138 mg/dL 10/15/2015 Lipid Ord30 C/HDL 5.1 Ratio 10/15/2015 Comp Metabolic [id number] NA 139 mEq/L 10/15/2015 Comp Metabolic Ilz658 K 4.2 mEq/L 10/15/2015 Comp Metabolic Xry302 CL 104 mEq/L 10/15/2015 Comp Metabolic Fkk285 CO2 25.0 mEq/L 10/15/2015 Comp Metabolic Jli554 ANION GAP 14 10/15/2015 Comp Metabolic You518 GLUCOSE 114 mg/dL 10/15/2015 Comp Metabolic Zux335 Creat 1.0 mg/dL 10/15/2015 Comp Metabolic Dwv477 eGFR 59 ml/min/1.73m2 10/15/2015 Comp Metabolic Vai261 BUN 18 mg/dL 10/15/2015 Comp Metabolic Gxq807 B/C Ratio 18.4 Ratio 10/15/2015 Comp Metabolic Oxe373 CALCIUM 9.8 mg/dL 10/15/2015 Comp Metabolic Buq285 ALK PHOS 59 U/L 10/15/2015 Comp Metabolic Lcq605 AST(SGOT) 14 U/L 10/15/2015 Comp Metabolic Oyu663 ALT(SGPT) 13 U/L 10/15/2015 Comp Metabolic Tfv321 BILI T 0.9 mg/dL 10/15/2015 Comp Metabolic Rmz607 ALBUMIN 4.2 g/dL 10/15/2015 Comp Metabolic Twj047 TPRO 6.6 g/dL 10/15/2015 Comp Metabolic Foz577 GLOB 2.4 g/dL 10/15/2015 Comp Metabolic Lhk477 A/G Ratio 1.8 Ratio 10/15/2015 Comp Metabolic Mvp331 Osmo 280 mOsmo 10/15/2015 Tsh Ord6 hTSH [...] 29.7 pg 10/15/2015 Cbc With Differential Ord2 [place]% 8.5 % 10/15/2015 Cbc With Differential Ord2 [...] 1.95 K/ul 10/15/2015 Cbc With Differential Ord2 [place] ABS# 0.6 K/ul 10/15/2015 Cbc With Differential Ord2 [place] ABS# 0.2 K/ul 10/15/2015 Cbc With Differential Ord2 [place] ABS# 0.0 K/ul 10/15/2015 Cbc With Differential Ord2 New Analyzer Notice Please note new ref ranges starting 09-04-2015 due to implemntation of new five part differential hematolgy analyzer. 10/15/2015 Comp Metabolic Uum686 NA 136 mEq/L 04/12/2015 Comp Metabolic Fey956 K 4.4 mEq/L 04/12/2015 Comp Metabolic Ewl659 CL 102 mEq/L 04/12/2015 Comp Metabolic Shr352 CO2 28.0 mEq/L 04/12/2015 Comp Metabolic Hcs793 ANION GAP 10 04/12/2015 Comp Metabolic Aax091 GLUCOSE 86 mg/dL 04/12/2015 Comp Metabolic Ynj555 Creat 0.9 mg/dL 04/12/2015 Comp Metabolic Ahy763 eGFR 70 ml/min/1.73m2 04/12/2015 Comp Metabolic Tmq682 BUN 17 mg/dL 04/12/2015 Comp Metabolic Kxw602 B/C Ratio 20.0 Ratio 04/12/2015 Comp Metabolic Wus331 CALCIUM 9.6 mg/dL 04/12/2015 Comp Metabolic Oua754 ALK PHOS 60 U/L 04/12/2015 Comp Metabolic Egf470 AST(SGOT) 16 U/L 04/12/2015 Comp Metabolic Wwm832 ALT(SGPT) 14 U/L 04/12/2015 Comp Metabolic Miq831 BILI T 1.0 mg/dL 04/12/2015 Comp Metabolic Grp632 ALBUMIN 4.4 g/dL 04/12/2015 Comp Metabolic Dwv321 TPRO 6.8 g/dL 04/12/2015 Comp Metabolic Wsh999 GLOB 2.4 g/dL 04/12/2015 Comp Metabolic Xve719 A/G Ratio 1.8 Ratio 04/12/2015 Comp Metabolic Zaz736 Osmo 273 mOsmo 04/12/2015 Cbc With Differential [...] Differential Ord2 RDW 15.0 % 04/12/2015 B12 Lfo741 B12 >1500.00 pg/ml 04/12/2015 Tsh Ord6 hTSH II 1.17 uIU/mL 04/12/2015 Vitamin D 25 Oh Dvm4559 VITAMIN D, 25 HYDROXY 62.36 ng/mL A1C HPLC [id number] A1C HPLC 01440-6 6.1 % 01/24/2013 TSH 9534948 TSH 1.854 uIU/ML 01/23/2013 GFR CALC 8714917 GFR AA >60 ML/MIN 01/23/2013 GFR CALC 9816269 GFR NON-AA >60 ML/MIN 01/23/2013 CBC 2470754 WBC 8.7 10e9/L 01/23/2013 CBC 6233825 RBC 3.84 10e12/L 01/23/2013 CBC 2090737 HGB 11.3 g/dL 01/23/2013 CBC 6061200 HCT DET 34.5 % 01/23/2013 CBC 6362944 MCV 89.8 fL 01/23/2013 CBC 8238667 MCH 29.4 pg 01/23/2013 CBC 6995490 MCHC 32.8 g/dL 01/23/2013 CBC 7647100 PLT 384 10e9/L 01/23/2013 CBC 1037561 MPV 10.7 fL 01/23/2013 CBC 5999526 CHRISTIAN[place] % 70.2 % 01/23/2013 CBC 5892617 LY % 19.2 % 01/23/2013 CBC 4672380 MON % 6.9 % 01/23/2013 CBC 0981404 EOS % 3.5 % 01/23/2013 CBC 0909615 BASO % 0.2 % 01/23/2013 CBC 4871107 RDW 13.0 % 01/23/2013 CBC 1477042 ABS CHRISTIANNE 6.11 10e9/L 01/23/2013 CBC 2811864 ABS LYMPH 1.67 10e9/L 01/23/2013 CBC 7684399 ABS MONO 0.60 10e9/L 01/23/2013 CBC 8889960 ABS EOS 0.30 10e9/L 01/23/2013 CBC 0592532 ABS BASO 0.02 10e9/L 01/23/2013 CBC 0275106 RDW-SD 42.1 fL 01/23/2013 CHEM 14 3010655 AST 11 U/L 01/23/2013 CHEM 14 9918303 ALT 16 IU/L 01/23/2013 CHEM 14 2555677 BUN 10 MG/DL 01/23/2013 CHEM 14 9941196 ALBUMIN 4.4 GM/DL 01/23/2013 CHEM 14 2694968 CHLORIDE 104 MMOL/L 01/23/2013 CHEM 14 4055121 BILI TOT 1.1 MG/DL 01/23/2013 CHEM 14 7471571 ALK PHOS 74 U/L 01/23/2013 CHEM 14 5254189 SODIUM 141 MMOL/L 01/23/2013 CHEM 14 8304829 CREATININE 0.76 MG/DL 01/23/2013 CHEM 14 8214378 CALCIUM 9.4 MG/DL 01/23/2013 CHEM 14 2348958 POTASSIUM 3.4 MMOL/L 01/23/2013 CHEM 14 8352751 PROT TOT 6.6 GM/DL 01/23/2013 CHEM 14 2493424 GLUCOSE 107 MG/DL 01/23/2013 CHEM 14 4277736 BICARB 28 MMOL/L 01/23/2013 CHEM 14 2237397 ANION GAP 9 MEQ/L 01/23/2013 ESR 5757853 ESR 28 MM/HR 12/28/2012 CRP 8339626 CRP 0.5 MG/DL 12/28/2012 VIT B 12 5392790 VIT B 12 760 PG/ML 12/28/2012 URIC ACID 3856963 URIC ACID 4.4 MG/DL 12/27/2012 GFR CALC 6181826 GFR AA >60 ML/MIN 12/27/2012 GFR CALC 0799231 GFR NON-AA >60 ML/MIN 12/27/2012 CHEM 14 8253898 AST 16 U/L 12/27/2012 CHEM 14 6555683 ALT 17 IU/L 12/27/2012 CHEM 14 7964842 BUN 8 MG/DL 12/27/2012 CHEM 14 2884869 ALBUMIN 4.4 GM/DL 12/27/2012 CHEM 14 8877066 CHLORIDE 104 MMOL/L 12/27/2012 CHEM 14 2553074 BILI TOT 1.0 MG/DL 12/27/2012 CHEM 14 8719447 ALK PHOS 79 U/L 12/27/2012 CHEM 14 8878907 SODIUM 142 MMOL/L 12/27/2012 CHEM 14 7032590 CREATININE 0.72 MG/DL 12/27/2012 CHEM 14 6553852 CALCIUM 9.3 MG/DL 12/27/2012 CHEM 14 9569663 POTASSIUM 3.4 MMOL/L 12/27/2012 CHEM 14 6066992 PROT TOT 6.9 GM/DL 12/27/2012 CHEM 14 1421523 GLUCOSE 96 MG/DL 12/27/2012 CHEM 14 0325554 BICARB 32 MMOL/L 12/27/2012 CHEM 14 2133180 ANION GAP 6 MEQ/L 12/27/2012 CBC 0335987 WBC 8.2 10e9/L 12/27/2012 CBC 8548878 RBC 3.75 10e12/L 12/27/2012 CBC 4242566 HGB 11.1 g/dL 12/27/2012 CBC 1044473 HCT DET 34.2 % 12/27/2012 CBC 6742242 MCV 91.2 fL 12/27/2012 CBC 1703812 MCH 29.6 pg 12/27/2012 CBC 1050924 MCHC 32.5 g/dL 12/27/2012 CBC 4798686 PLT 335 10e9/L 12/27/2012 CBC 7784322 MPV 10.7 fL 12/27/2012 CBC 9702279 CHRISTIAN[place] % 68.2 % 12/27/2012 CBC 5115439 LY % 22.0 % 12/27/2012 CBC 9923728 MON % 7.3 % 12/27/2012 CBC 9432458 EOS % 2.3 % 12/27/2012 CBC 0809887 BASO % 0.2 % 12/27/2012 CBC 6664009 RDW 12.8 % 12/27/2012 CBC 9886337 ABS CHRISTIAN[place] 5.59 10e9/L 12/27/2012 CBC 7800232 ABS LYMPH 1.80 10e9/L 12/27/2012 CBC 2549159 ABS MONO 0.60 10e9/L 12/27/2012 CBC 6403789 ABS EOS 0.19 10e9/L 12/27/2012 CBC 0977979 ABS BASO 0.02 10e9/L 12/27/2012 CBC 3382877 RDW-SD 41.4 fL 12/27/2012 A1C HPLC 0287831 A1C HPLC 60225-5 5.4 % 10/10/2012 LIPID GRP HDL TEST 45 MG/DL 10/07/2012 LIPID GRP TRIG 182 MG/DL 10/07/2012 LIPID GRP TEST LDL 94 MG/DL 10/07/2012 LIPID GRP CHOL 175 MG/DL 10/07/2012 LIPID GRP RCHOL/HDL 3.89 RATIO 10/07/2012 TSH 7070231 TSH 1.239 uIU/ML 10/07/2012 GFR CALC 2355902 GFR AA >60 ML/MIN 10/07/2012 GFR CALC 1236497 GFR NON-AA >60 ML/MIN 10/07/2012 CBC 5572547 WBC 7.1 10e9/L 10/07/2012 CBC 0056842 RBC 3.98 10e12/L 10/07/2012 CBC 2217893 HGB 11.8 g/dL 10/07/2012 CBC 6215572 HCT DET 36.0 % 10/07/2012 CBC 4730454 MCV 90.5 fL 10/07/2012 CBC 5096191 MCH 29.6 pg 10/07/2012 CBC 2991462 MCHC 32.8 g/dL 10/07/2012 CBC 1019201 PLT 333 10e9/L 10/07/2012 CBC 2078269 MPV 11.5 fL 10/07/2012 CBC 4217172 CHRISTIAN[place] % 65.7 % 10/07/2012 CBC 7872747 LY % 24.0 % 10/07/2012 CBC 3237750 MON % 7.4 % 10/07/2012 CBC 0013569 EOS % 2.5 % 10/07/2012 CBC 9166012 BASO % 0.4 % 10/07/2012 CBC 8672845 RDW 12.7 % 10/07/2012 CBC 6960876 ABS CHRIST[place] 4.66 10e9/L 10/07/2012 CBC 1270835 ABS LYMPH 1.70 10e9/L 10/07/2012 CBC 2036069 ABS MONO 0.53 10e9/L 10/07/2012 CBC 3907930 ABS EOS 0.18 10e9/L 10/07/2012 CBC 6651799 ABS BASO 0.03 10e9/L 10/07/2012 CBC 1849461 RDW-SD 41.3 fL 10/07/2012 CHEM 14 6366179 AST 15 U/L 10/07/2012 CHEM 14 1786793 ALT 15 IU/L 10/07/2012 CHEM 14 2888792 BUN 7 MG/DL 10/07/2012 CHEM 14 2773677 ALBUMIN 4.3 GM/DL 10/07/2012 CHEM 14 3580387 CHLORIDE 103 MMOL/L 10/07/2012 CHEM 14 2485306 BILI TOT 1.2 MG/DL 10/07/2012 CHEM 14 6255307 ALK PHOS 83 U/L 10/07/2012 CHEM 14 2904725 SODIUM 139 MMOL/L 10/07/2012 CHEM 14 0625454 CREATININE 0.74 MG/DL 10/07/2012 CHEM 14 2532740 CALCIUM 9.4 MG/DL 10/07/2012 CHEM 14 2335321 POTASSIUM 3.6 MMOL/L 10/07/2012 CHEM 14 5411005 PROT TOT 6.6 GM/DL 10/07/2012 CHEM 14 5695845 GLUCOSE 114 MG/DL 10/07/2012 CHEM 14 7615788 BICARB 25 MMOL/L 10/07/2012 CHEM 14 7415265 ANION GAP 11 MEQ/L 10/07/2012 MAGNESIUM 6743468 MAGNESIUM 1.5 MEQ/L 02/02/2012 GFR CALC 2452039 GFR AA >60 ML/MIN 02/01/2012 GFR CALC 7487818 GFR NON-AA 53.0L ML/MIN 02/01/2012 CHEM 14 1221521 AST 12 U/L 02/01/2012 CHEM 14 4664977 ALT 12 IU/L 02/01/2012 CHEM 14 6873434 BUN 24 MG/DL 02/01/2012 CHEM 14 4296844 ALBUMIN 4.3 GM/DL 02/01/2012 CHEM 14 7373211 CHLORIDE 108 MMOL/L 02/01/2012 CHEM 14 3997533 BILI TOT 0.6 MG/DL 02/01/2012 CHEM 14 3894073 ALK PHOS 69 U/L 02/01/2012 CHEM 14 2339073 SODIUM 142 MMOL/L 02/01/2012 CHEM 14 7524200 CREATININE 1.03 MG/DL 02/01/2012 CHEM 14 7076577 CALCIUM 9.5 MG/DL 02/01/2012 CHEM 14 5563937 POTASSIUM 5.1 MMOL/L 02/01/2012 CHEM 14 2370933 PROT TOT 6.7 GM/DL 02/01/2012 CHEM 14 7350507 GLUCOSE 112 MG/DL 02/01/2012 CHEM 14 1350752 BICARB 22 MMOL/L 02/01/2012 CHEM 14 8970128 ANION GAP 12 MEQ/L 02/01/2012 CBC 5289386 WBC 9.6 10e9/L 01/22/2012 CBC 5472869 RBC 3.71 10e12/L 01/22/2012 CBC 8165686 HGB 10.8 g/dL 01/22/2012 CBC 2507090 HCT DET 33.4 % 01/22/2012 CBC 3423940 MCV 90.0 fL 01/22/2012 CBC 9942429 MCH 29.1 pg 01/22/2012 CBC 3365537 MCHC 32.3 g/dL 01/22/2012 CBC 8117243 PLT 359 10e9/L 01/22/2012 CBC 0711973 MPV 10.4 fL 01/22/2012 CBC 1852805 CHRISTIANNE % 66.2 % 01/22/2012 CBC 3774793 LY % 22.4 % 01/22/2012 CBC 1089208 MON % 8.4 % 01/22/2012 CBC 0254598 EOS % 2.8 % 01/22/2012 CBC 3905750 BASO % 0.2 % 01/22/2012 CBC 4690866 RDW 14.2 % 01/22/2012 CBC 0402999 ABS [place]RIST[place] 6.36 10e9/L 01/22/2012 CBC 7208316 ABS LYMPH 2.15 10e9/L 01/22/2012 CBC 5432319 ABS MONO 0.81 10e9/L 01/22/2012 CBC 3734436 ABS EOS 0.27 10e9/L 01/22/2012 CBC 8449296 ABS BASO 0.02 10e9/L 01/22/2012 CBC 2933571 RDW-SD 44.8 fL 01/22/2012 TSH 2848491 TSH 1.539 uIU/ML 01/22/2012 GFR CALC 5486788 GFR AA 26.0L ML/MIN 01/22/2012 GFR CALC 3493889 GFR NON-AA 22.0 ML/MIN 01/22/2012 CHEM 14 2016871 AST 13 U/L 01/22/2012 CHEM 14 2406608 ALT 13 IU/L 01/22/2012 CHEM 14 6497104 BUN 42 MG/DL 01/22/2012 CHEM 14 7770815 ALBUMIN 4.4 GM/DL 01/22/2012 CHEM 14 6292606 CHLORIDE 103 MMOL/L 01/22/2012 CHEM 14 7570826 BILI TOT 0.8 MG/DL 01/22/2012 CHEM 14 9635753 ALK PHOS 82 U/L 01/22/2012 CHEM 14 0833473 SODIUM 138 MMOL/L 01/22/2012 CHEM 14 0512731 CREATININE 2.23 MG/DL 01/22/2012 CHEM 14 9867013 CALCIUM 9.7 MG/DL 01/22/2012 CHEM 14 5917987 POTASSIUM 4.9 MMOL/L 01/22/2012 CHEM 14 1930476 PROT TOT 7.1 GM/DL 01/22/2012 CHEM 14 2924318 GLUCOSE 92 MG/DL 01/22/2012 CHEM 14 6822635 BICARB 20 MMOL/L 01/22/2012 CHEM 14 4312732 ANION GAP 15 MEQ/L 01/22/2012 LIPID GRP HDL TEST 35 MG/DL 01/22/2012 LIPID GRP TRIG 320 MG/DL 01/22/2012 LIPID GRP TEST LDL 89 MG/DL 01/22/2012 LIPID GRP CHOL 188 MG/DL 01/22/2012 LIPID GRP RCHOL/HDL 5.37 RATIO 01/22/2012 URINALYSIS NONAUTO W/O SCOPE 12562 Specific [place] 1.030 DateTime(Free Text in Aprima) URINALYSIS NONAUTO W/O SCOPE 29795 PH 6 DateTime(Free Text in Aprima) URINALYSIS NONAUTO W/O SCOPE 98580 GLUCOSE neg DateTime( Free Text in Aprima) URINALYSIS NONAUTO W/O SCOPE 94548 Protein neg DateTime( Free Text in Aprima) URINALYSIS NONAUTO W/O SCOPE 22401 Blood neg DateTime(Free Text in Aprima) URINALYSIS NONAUTO W/O SCOPE 84065 Bilirubin neg DateTime(Free Text in Aprima) URINALYSIS NONAUTO W/O SCOPE 78347 Ketones neg DateTime( Free Text in Aprima) URINALYSIS NONAUTO W/O SCOPE 42206 Urobilinogen neg DateTime(Free Text in Aprima) URINALYSIS NONAUTO W/O SCOPE 93024 Nitrite neg DateTime( Free Text in Aprima) URINALYSIS NONAUTO W/O SCOPE 85214 Leukocytes neg DateTime(Free Text in Aprima) Review of Systems System Result Effective Dates Constitutional No recent illness 2017 Constitutional No night sweats 2017 Constitutional No chills 10/05/2017 Constitutional No fatigue 10/05/2017 Constitutional No fever 10/05/2017 Constitutional No malaise 10/05/2017 Ears/Nose/Throat/Neck No dizziness 2017 Ears/Nose/Throat/Neck No sore throat Ears/Nose/Throat/Neck No otalgia 2017 Cardiovascular No chest pain/pressure Respiratory No cough 10/05/2017 Gastrointestinal No abdominal pain 2017 Gastrointestinal No constipation 2017 Gastrointestinal No diarrhea 10/05/2017 Gastrointestinal No nausea 10/05/2017 Gastrointestinal No vomiting 10/05/2017 Musculoskeletal stiffness 10/05/2017 Musculoskeletal arthralgia(s) 10/05/2017 Neurologic No alteration of consciousness 10/05/2017 Psychiatric No anxiety 10/05/2017 Psychiatric No depression 10/05/2017 Constitutional No recent illness 2017 Constitutional No [...] 1994 Constitutional general appearance Overall: well developed 10/05/2017 None Full Exam - General 1994 Constitutional general appearance Overall: in no acute distress 10/05/2017 None Full Exam - General 1994 Constitutional general appearance Overall: well nourished 10/05/2017 None Full Exam - General 1994 Eyes pupils and irises Overall: pupils equal, round, reactive to light and accomodation 10/05/2017 None Full Exam - General 1994 Ears/Nose/Throat oral cavity/pharynx/larynx Overall: oral mucosa clear 10/05/2017 None Full Exam - General 1994 Ears/Nose/Throat oral cavity/pharynx/larynx Overall: oropharyngeal mucosa clear 10/05/2017 None Full Exam - General 1994 Ears/Nose/Throat oral cavity/pharynx/larynx Overall: no masses 10/05/2017 None Full Exam - General 1994 Respiratory auscultation Overall: breath sounds clear bilaterally 10/05/2017 None Full Exam - General 1994 Respiratory respiratory effort/rhythm Overall: no retractions 10/05/2017 None Full Exam - General 1994 Respiratory respiratory effort/rhythm Overall: normal rate 10/05/2017 None Full Exam - General 1994 Cardiovascular extremities Overall: no clubbing 10/05/2017 None Full Exam - General 1994 Cardiovascular auscultation of heart Overall: regular rate 10/05/2017 None Full Exam - General 1994 Cardiovascular auscultation of heart Systolic murmur: holosystolic 10/05/2017 None Full Exam - General 1994 Cardiovascular auscultation of heart Systolic murmur grade: III/ 10/05/2017 None Full Exam - General 1994 Abdomen abdominal exam Overall: no tenderness 10/05/2017 None Full Exam - General 1994 Abdomen abdominal exam Overall: normal bowel sounds 10/05/2017 None Full Exam - General 1994 Musculoskeletal head and neck Overall: head atraumatic 10/05/2017 None Full Exam - General 1994 Musculoskeletal head and neck Overall: cervical spine benign 10/05/2017 None Full Exam - General 1994 Psychiatric orientation/consciousness Overall: oriented to person, place and time 10/05/2017 None Full Exam - General 1994 Psychiatric mood and affect Overall: normal mood and affect 10/05/2017 None Full Exam - General 1994 Psychiatric mood and affect Mood: happy 10/05/2017 None Full Exam - General 1994 Constitutional [...] benign 10/01/2016 None Full Exam - General 1995 Lymphatic [...] nourished 05/18/2013 None Full Exam - General 1994 Constitutional general appearance Overall: well developed 05/18/2013 None Full Exam - General 1994 Constitutional general appearance Overall: in no acute distress 05/18/2013 None Full Exam - General 1994 Eyes pupils and irises Overall: pupils equal, round, reactive to light and accomodation 05/18/2013 None Full Exam - General 1995 Eyes conjunctiva /eyelids Overall: conjunctiva clear 05/18/2013 None Full Exam - General 1995 Eyes conjunctiva /eyelids Overall: eyelids normal 05/18/2013 None Full Exam - General 1995 Eyes conjunctiva /eyelids Overall: cornea clear 05/18/2013 [...] clear 04/18/2013 None Full Exam - General 1995 Ears/Nose/Throat oral cavity/pharynx/larynx Overall: no masses 04/18/2013 [...] sounds 04/18/2013 None Full Exam - General 1994 [...] tenderness 03/16/2013 None Full Exam - General 1995 Abdomen abdominal exam Overall: normal bowel sounds 03/16/2013 None Full Exam - General 1995 Lymphatic [...] time 03/16/2013 None Full Exam - General 1995 Psychiatric mood and affect Overall: normal mood and affect 03/16/2013 None Full Exam - General 1995 Psychiatric mood and affect Mood: happy 03/16/2013 None Full Exam - General 1995 Constitutional general appearance Overall: well developed 01/26/2013 None Full Exam - General 1994 Constitutional general appearance Overall: in no acute distress 01/26/2013 None Full Exam - General 1995 Constitutional general appearance Overall: well nourished 01/26/2013 None Full Exam - General 1994 Eyes pupils and irises Overall: pupils equal, round, reactive to light and accomodation 01/26/2013 None Full Exam - General 1995 [...] masses 01/26/2013 None Full Exam - General 1994 Respiratory auscultation Overall: breath sounds clear bilaterally 01/26/2013 None Full Exam - General 1994 Respiratory respiratory effort/rhythm Overall: no retractions 01/26/2013 None Full Exam - General 1994 Respiratory respiratory effort/rhythm Overall: normal rate 01/26/2013 None Full Exam - General 1994 Cardiovascular extremities Overall: no clubbing 01/26/2013 None Full Exam - General 1994 [...] sounds 01/26/2013 None Full Exam - General 1995 Lymphatic neck nodes Overall: anterior cervical chain benign 01/26/2013 None Full Exam - General 1995 Lymphatic neck nodes Overall: posterior cervical chain benign 01/26/2013 None Full Exam - General 1995 Psychiatric orientation/consciousness Overall: oriented to person, place and time 01/26/2013 None Full Exam - General 1995 Psychiatric mood and affect Overall: normal mood and affect 01/26/2013 None Full Exam - General 1995 Psychiatric mood and affect Mood: happy 01/26/2013 None Full Exam - General 1995 Integument inspection of skin Dermatitis: pustule 01/26/2013 over scalp, neck, upper back, and on anterior neck and chest - few scattered pustules - culture obtained Full Exam - General 1994 Constitutional general appearance Overall: well developed 12/27/2012 None Full Exam - General 1995 Constitutional general appearance Overall: in no acute distress 12/27/2012 None Full Exam - General 1995 Constitutional general appearance Overall: well nourished 12/27/2012 None Full Exam - General 1994 Respiratory auscultation Overall: breath sounds clear bilaterally 12/27/2012 None Full Exam - General 1994 Respiratory respiratory effort/rhythm Overall: no retractions 12/27/2012 None Full Exam - General 1994 Respiratory respiratory effort/rhythm Overall: normal rate 12/27/2012 None Full Exam - General 1994 Cardiovascular auscultation of heart Overall: regular rate 12/27/2012 None Full Exam - General 1994 Cardiovascular auscultation of heart Systolic murmur: holosystolic 12/27/2012 None Full Exam - General 1994 Cardiovascular [...] node 12/27/2012 None Full Exam - General 1995 Constitutional general appearance Overall: well developed 10/11/2012 None Full Exam - General 1995 Constitutional general appearance Overall: in no acute distress 10/11/2012 None Full Exam - General 1995 Constitutional general appearance Overall: well nourished 10/11/2012 None Full Exam - General 1995 Lymphatic neck nodes Overall: posterior cervical chain benign 10/11/2012 None Full Exam - General 1995 Neurologic gait Overall: no ataxia, no unsteadiness 10/11/2012 None Full Exam - General 1995 Psychiatric orientation/consciousness Overall: oriented to person, place and time 10/11/2012 None Full Exam - General 1995 Psychiatric mood and affect Overall: normal mood [...] masses 10/11/2012 None Full Exam - General 1994 Respiratory auscultation Overall: breath sounds clear bilaterally 10/11/2012 None Full Exam - General 1994 Respiratory respiratory effort/rhythm Overall: no retractions 10/11/2012 None Full Exam - General 1994 Respiratory respiratory effort/rhythm Overall: normal rate 10/11/2012 None Full Exam - General 1994 Cardiovascular extremities Overall: no clubbing 10/11/2012 None Full Exam - General 1994 [...] benign 10/11/2012 None Full Exam - General 1995 Constitutional general appearance Overall: well developed 09/21/2012 None Full Exam - General 1995 Cardiovascular auscultation of heart Overall: regular rate 09/21/2012 None Full Exam - General 1995 Cardiovascular auscultation of heart Systolic murmur: holosystolic 09/21/2012 None Full Exam - General 1995 Cardiovascular auscultation of heart Systolic murmur grade: II/ 09/21/2012 None Full Exam - General 1995 Lymphatic neck nodes Overall: anterior cervical chain benign 09/21/2012 None Full Exam - General 1995 Lymphatic neck nodes Overall: posterior cervical chain benign 09/21/2012 None Full Exam - General 1994 Integument inspection of skin Dermatitis: pustule 09/21/2012 None Full Exam - General 1994 Integument inspection of skin Dermatitis: erythema 09/21/2012 None Full Exam - General 1995 Integument inspection of skin Location: left foot [...] accomodation 09/21/2012 None Full Exam - General 1995 Ears/Nose/Throat otoscopic exam Overall: external auditory canals clear 09/21/2012 None Full Exam - General 1995 Ears/Nose/Throat otoscopic exam Overall: tympanic membranes clear 09/21/2012 None Full Exam - General 1995 Ears/Nose/Throat [...] clear 05/16/2012 None Full Exam - General 1994 Ears/Nose/Throat otoscopic exam Overall: tympanic membranes clear 05/16/2012 None Full Exam - General 1994 Ears/Nose/Throat oral cavity/pharynx/larynx Overall: oral mucosa clear 05/16/2012 None Full Exam - General 1994 Ears/Nose/Throat oral cavity/pharynx/larynx Overall: oropharyngeal mucosa clear 05/16/2012 None Full Exam - General 1994 Ears/Nose/Throat oral cavity/pharynx/larynx Overall: no masses 05/16/2012 [...] accomodation 02/29/2012 None Full Exam - General 1995 [...] distress 02/08/2012 None Full Exam - General 1995 Constitutional general appearance Overall: well nourished 02/08/2012 [...] 1995 Ears/Nose/Throat oral cavity/pharynx/larynx Overall: no masses 02/08/2012 [...] 1994 Respiratory respiratory effort/rhythm Overall: normal rate 02/01/2012 [...] NO PRSV 4 ABDOULAYE 3 YRS+ CPT-4: 59683 05/27/2017 ADMIN INFLUENZA VIRUS VAC CPT-4: G0008 05/27/2017 THER/PROPH/DIAG INJ SC/IM CPT-4: 36809 05/27/2017 VITAMIN B12 INJECTION CPT-4: J3420 05/27/2017 THER/PROPH/DIAG INJ SC/IM CPT-4: 12697 04/27/2017 VITAMIN B12 INJECTION CPT-4: J3420 04/27/2017 THER/PROPH/DIAG INJ SC/IM CPT-4: 64296 04/09/2017 VITAMIN B12 INJECTION CPT-4: J3420 04/09/2017 THER/PROPH/DIAG INJ SC/IM CPT-4: 36957 03/23/2017 VITAMIN B12 INJECTION CPT-4: J3420 03/23/2017 THER/PROPH/DIAG INJ SC/IM CPT-4: 88801 03/11/2017 VITAMIN B12 INJECTION CPT-4: J3420 03/11/2017 URINALYSIS NONAUTO W/O SCOPE CPT-4: 59616 02/22/2017 THER/PROPH/DIAG INJ SC/IM CPT-4: 94491 02/22/2017 TRIAMCINOLONE ACET INJ NOS CPT-4: J3301 02/22/2017 PPPS, SUBSEQ VISIT CPT -4: G0439 12/28/2016 URINALYSIS NONAUTO W/O SCOPE CPT-4: 16143 12/24/2016 THER/PROPH/DIAG INJ SC/IM CPT-4: 37941 10/14/2016 VITAMIN B12 INJECTION CPT-4: J3420 10/14/2016 THER/PROPH/DIAG INJ SC/IM CPT-4: 23361 09/16/2016 VITAMIN B12 INJECTION CPT-4: J3420 09/16/2016 THER/PROPH/DIAG INJ SC/IM CPT-4: 58930 08/11/2016 VITAMIN B12 INJECTION CPT-4: J3420 08/11/2016 URINALYSIS NONAUTO W/O SCOPE CPT-4: 11003 05/27/2016 ADMIN INFLUENZA VIRUS VAC CPT-4: G0008 04/23/2016 FLU VACC PRSV FREE INC ANTIG CPT-4: 30738 04/23/2016 URINALYSIS NONAUTO W/O SCOPE CPT-4: 66379 03/13/2016 URINALYSIS NONAUTO W/O SCOPE CPT-4: 13449 03/03/2016 VITAMIN B12 INJECTION CPT-4: J3420 12/03/2015 THER/PROPH/DIAG INJ SC/IM CPT-4: 45487 04/12/2015 VITAMIN B12 INJECTION CPT-4: J3420 04/12/2015 VITAMIN B12 INJECTION CPT-4: J3420 01/22/2015 THER/PROPH/DIAG INJ SC/IM CPT-4: 83374 01/22/2015 TRIAMCINOLONE ACET INJ NOS CPT-4: J3301 01/08/2015 THER/PROPH/DIAG INJ SC/IM CPT-4: 96018 01/08/2015 VITAMIN B12 INJECTION CPT-4: J3420 01/08/2015 THER/PROPH/DIAG INJ SC/IM CPT-4: 67208 11/28/2014 VITAMIN B12 INJECTION CPT-4: J3420 11/28/2014 THER/PROPH/DIAG INJ SC/IM CPT-4: 85735 10/04/2014 VITAMIN B12 INJECTION CPT-4: J3420 10/04/2014 VITAMIN B12 INJECTION CPT-4: J3420 09/10/2014 ADMIN PNEUMOCOCCAL VACCINE SNOMED CT: [id number] CPT-4: G0009 08/06/2014 Pneumococcal Polysaccharide Vaccine, 23-Valent, Ad CPT-4: 06559 08/06/2014 THER/PROPH/DIAG INJ SC/IM CPT-4: 78851 08/06/2014 VITAMIN B12 INJECTION CPT-4: J3420 08/06/2014 THER/PROPH/DIAG INJ SC/IM CPT-4: 28651 07/12/2014 VITAMIN B12 INJECTION CPT-4: J3420 07/12/2014 THER/PROPH/DIAG INJ SC/IM CPT-4: 07461 06/28/2014 VITAMIN B12 INJECTION CPT-4: J3420 06/28/2014 THER/PROPH/DIAG INJ SC/IM CPT-4: 60149 06/14/2014 VITAMIN B12 INJECTION CPT-4: J3420 06/14/2014 THER/PROPH/DIAG INJ SC/IM CPT-4: 23968 05/31/2014 VITAMIN B12 INJECTION CPT-4: J3420 05/31/2014 ADMIN INFLUENZA VIRUS VAC CPT-4: G0008 05/16/2014 FLU VAC NO PRSV 4 ABDOULAYE 3 YRS+ Assigned to/Sandrine Velasquez CPT-4: 19731Qnbckpd 05/16/2014 THER/PROPH/DIAG INJ SC/IM CPT-4: 63598 05/16/2014 VITAMIN B12 INJECTION CPT-4: J3420 05/16/2014 THER/PROPH/DIAG INJ SC/IM CPT-4: 56777 04/05/2014 VITAMIN B12 INJECTION CPT-4: J3420 04/05/2014 THER/PROPH/DIAG INJ SC/IM CPT-4: 89315 02/01/2014 VITAMIN B12 INJECTION CPT-4: J3420 02/01/2014 THER/PROPH/DIAG INJ SC/IM CPT-4: 63259 12/29/2013 VITAMIN B12 INJECTION CPT-4: J3420 12/29/2013 TRIAMCINOLONE ACET INJ NOS CPT-4: J3301 05/18/2013 DRAIN/INJECT JOINT/BURSA CPT-4: 59434 05/18/2013 THER/PROPH/DIAG INJ SC/IM CPT-4: 22123 04/18/2013 KETOROLAC TROMETHAMINE INJ CPT-4: J1885 04/18/2013 PRESCRIP TRANSMIT VIA ERX SY CPT-4: G8553 03/16/2013 PRESCRIP TRANSMIT VIA ERX SY CPT-4: G8553 01/26/2013 ROUTINE VENIPUNCTURE CPT-4: 85331 01/23/2013 ROUTINE VENIPUNCTURE CPT-4: 72994 12/27/2012 PRESCRIP TRANSMIT VIA ERX SY CPT-4: G8553 12/27/2012 ROUTINE VENIPUNCTURE CPT-4: 51489 10/07/2012 PRESCRIP TRANSMIT VIA ERX SY CPT-4: G8553 09/21/2012 PRESCRIP TRANSMIT VIA ERX SY CPT-4: G8553 08/02/2012 TRIAMCINOLONE ACET INJ NOS CPT-4: J3301 06/27/2012 PRESCRIP TRANSMIT VIA ERX SY CPT-4: G8553 06/27/2012 TRIAMCINOLONE ACET INJ NOS CPT-4: J3301 06/06/2012 DRAIN/INJECT JOINT/BURSA CPT-4: 94242 06/06/2012 VITAMIN B12 INJECTION CPT-4: J3420 02/08/2012 URINALYSIS NONAUTO W/O SCOPE CPT-4: 29606 02/08/2012 ROUTINE VENIPUNCTURE CPT-4: 52732 02/01/2012 ROCEPHIN, PER 250 MG CPT-4: J0696 02/01/2012 PRESCRIP TRANSMIT VIA ERX SY CPT-4: G8553 02/01/2012 THER/PROPH/DIAG INJ SC/IM CPT-4: 68598 02/01/2012 ROUTINE VENIPUNCTURE CPT-4: 80357 01/22/2012 PRESCRIP TRANSMIT VIA ERX SY CPT-4: G8553 01/22/2012 TRIAMCINOLONE ACET INJ NOS CPT-4: J3301 10/19/2011 CA SCREEN;PELVIC/BREAST EXAM CPT-4: G0101 09/09/2011 KETOROLAC TROMETHAMINE INJ CPT-4: J1885 07/15/2011 THER/PROPH/DIAG INJ SC/IM CPT-4: 42821 07/15/2011 THER/PROPH/DIAG INJ SC/IM CPT-4: 48347 07/02/2011 KETOROLAC TROMETHAMINE INJ CPT-4: J1885 07/02/2011 KETOROLAC TROMETHAMINE INJ CPT-4: J1885 06/24/2011 THER/PROPH/DIAG INJ SC/IM CPT-4: 58417 06/24/2011 Vital Signs Date Vital 10/05/2017 Blood Pressure 1: 170/84 Code : 8480-6 BMI: 23.8 Code : 32224-7 Heart Rate 1 : 71 bpm Height: 5'5" SpO2: 98% Weight: 143 lbs 09/28/2017 Blood Pressure 1: 144/76 Code : 8480-6 Heart Rate 1: 67 bpm SpO2: 96% 09/09/2017 Blood Pressure 1: 158/96 Code : 8480-6 Heart Rate 1: 65 bpm SpO2: 96% 09/03/2017 Blood Pressure 1: 162/76 Code : 8480-6 BMI: 23.6 Code : 78554-9 Height: 5'5" Weight: 142 lbs 05/27/2017 Blood Pressure 1: 158/78 Code : 8480-6 BMI: 23.1 Code : 70035-5 Heart Rate 1 : 57 bpm Height: 5'5" SpO2: 99% Weight: 139 lbs 04/27/2017 Blood Pressure 1: 142/78 Code : 8480-6 Blood Pressure 1: 136/72 Code: 8480-6 BMI: 24.0 Code: 87179-4 Heart Rate 1: 69 bpm Height: 5'5" SpO2: 94% Weight: 144 lbs 03/09/2017 Blood Pressure 1: 138/80 Code : 8480-6 BMI: 23.5 Code : 83153-1 Heart Rate 1 : 76 bpm Height: 5'5" Weight: 141 lbs 4 oz 02/22/2017 Blood Pressure 1: 144/88 Code : 8480-6 BMI: 24.0 Code : 39792-7 Heart Rate 1 : 100 bpm Height: 5'5" SpO2: 92% Weight: 144 lbs 12/28/2016 Blood Pressure 1: 144/84 Code : 8480-6 BMI: 24.3 Code : 72202-9 Heart Rate 1 : 96 bpm Height: 5'5" SpO2: 97% Waist Measure (cm): 76 cm Weight: 146 lbs 12/24/2016 Blood Pressure 1: 148/86 Code : 8480-6 BMI: 24.3 Code : 75892-6 Heart Rate 1 : 93 bpm Height: 5'5" SpO2: 96% Weight: 146 lbs 10/06/2016 Blood Pressure 1: 144/72 Code : 8480-6 Heart Rate 1: 71 bpm Height: 5'5" SpO2: 98% 10/01/2016 Blood Pressure 1: 136/82 Code : 8480-6 Heart Rate 1: 62 bpm Height: 5'5" SpO2: 97% Weight: 09/01/2016 Blood Pressure 1: 130/66 Code : 8480-6 BMI: 23.8 Code : 82069-6 Heart Rate 1 : 70 bpm Height: 5'5" SpO2: 98% Weight: 143 lbs 08/11/2016 Blood Pressure 1: 140/80 Code : 8480-6 BMI: 24.0 Code : 84530-3 Height: 5'5" Weight: 144 lbs 8 oz 07/01/2016 Blood Pressure 1: 136/74 Code : 8480-6 BMI: 24.3 Code : 54699-1 Heart Rate 1 : 76 bpm Height: 5'5" SpO2: 97% Weight: 146 lbs 04/23/2016 Blood Pressure 1: 130/78 Code : 8480-6 BMI: 25.1 Code : 13617-7 Heart Rate 1 : 70 bpm Height: 5'5" SpO2: 97% Weight: 151 lbs 03/03/2016 Blood Pressure 1: 138/62 Code : 8480-6 BMI: 25.6 Code : 65886-0 Heart Rate 1 : 62 bpm Height: 5'5" SpO2: 99% Weight: 154 lbs 01/14/2016 Blood Pressure 1: 162/72 Code : 8480-6 BMI: 26.6 Code : 07653-2 Heart Rate 1 : 82 bpm Height: 5'5" SpO2: 98% Weight: 160 lbs 12/03/2015 Blood Pressure 1: 130/62 Code : 8480-6 BMI: 25.8 Code : 95358-0 Heart Rate 1 : 72 bpm Height: 5'5" SpO2: 98% Weight: 155 lbs 10/10/2015 Blood Pressure 1: 118/80 Code : 8480-6 BMI: 25.6 Code : 85755-8 Heart Rate 1 : 70 bpm Height: 5'5" SpO2: 98% Weight: 154 lbs 08/28/2015 Blood Pressure 1: 152/80 Code : 8480-6 BMI: 27.7 Code : 23834-3 Heart Rate 1 : 75 bpm Height: 5'5" SpO2: 98% Weight: 166 lbs 8 oz 06/12/2015 Blood Pressure 1: 142/64 Code : 8480-6 BMI: 27.5 Code : 62979-6 Heart Rate 1 : 66 bpm Height: 5'5" SpO2: 96% Weight: 165 lbs 05/09/2015 Blood Pressure 1: 122/70 Code : 8480-6 BMI: 27.3 Code : 43627-7 Heart Rate 1 : 69 bpm Height: 5'5" SpO2: 97% Weight: 164 lbs 04/12/2015 Blood Pressure 1: 122/62 Code : 8480-6 BMI: 27.6 Code : 01715-0 Heart Rate 1 : 69 bpm Height: 5'5" SpO2: 98% Weight: 166 lbs 03/12/2015 Blood Pressure 1: 108/70 Code : 8480-6 BMI: 26.8 Code : 24944-5 Heart Rate 1 : 73 bpm Height: 5'5" SpO2: 96% Weight: 161 lbs 01/08/2015 Blood Pressure 1: 136/76 Code : 8480-6 BMI: 28.8 Code : 83474-5 Heart Rate 1 : 73 bpm Height: 5'5" SpO2: 95% Weight: 173 lbs 10/04/2014 Blood Pressure 1: 138/86 Code : 8480-6 BMI: 29.0 Code : 92441-5 Heart Rate 1 : 76 bpm Height: 5'5" Weight: 174 lbs 09/10/2014 Blood Pressure 1: 110/60 Code : 8480-6 BMI: 29.6 Code : 13107-5 Heart Rate 1 : 75 bpm Height: 5'5" Weight: 178 lbs 08/06/2014 Blood Pressure 1: 138/78 Code : 8480-6 BMI: 28.6 Code : 05940-2 Heart Rate 1 : 76 bpm Height: 5'5" Weight: 172 lbs 07/12/2014 Blood Pressure 1: 126/82 Code : 8480-6 BMI: 28.5 Code : 37019-0 Heart Rate 1 : 72 bpm Height: 5'5" Weight: 171 lbs 05/16/2014 Blood Pressure 1: 110/62 Code : 8480-6 BMI: 29.0 Code : 18609-8 Heart Rate 1 : 74 bpm Height: 5'5" SpO2: 97% Weight: 174 lbs 04/05/2014 Blood Pressure 1: 142/80 Code : 8480-6 BMI: 29.6 Code : 32286-2 Heart Rate 1 : 60 bpm Height: 5'5" Weight: 178 lbs 03/05/2014 Blood Pressure 1: 118/70 Code : 8480-6 BMI: 30.8 Code : 17083-0 Heart Rate 1 : 64 bpm Height: 5'5" Weight: 185 lbs 02/01/2014 Blood Pressure 1: 118/60 Code : 8480-6 BMI: 30.6 Code : 63657-9 Heart Rate 1 : 60 bpm Height: 5'5" Weight: 184 lbs 12/07/2013 Blood Pressure 1: 106/58 Code : 8480-6 Heart Rate 1: 64 bpm Weight: 185 lbs 09/25/2013 Blood Pressure 1: 120/68 Code : 8480-6 BMI: 30.6 Code : 05398-9 Heart Rate 1 : 72 bpm Height: 5'5" Weight: 184 lbs 09/04/2013 Blood Pressure 1: 124/80 Code : 8480-6 BMI: 30.3 Code : 42530-5 Height: 5'5" Weight: 182 lbs 05/18/2013 Blood Pressure 1: 126/70 Code : 8480-6 Weight: 174 lbs 04/18/2013 Blood Pressure 1: 120/68 Code : 8480-6 BMI: 28.6 Code : 13493-6 Heart Rate 1 : 64 bpm Height: 5'5" Weight: 172 lbs 03/16/2013 Blood Pressure 1: 134/60 Code : 8480-6 BMI: 28.6 Code : 33480-1 Heart Rate 1 : 96 bpm Height: 5'5" Weight: 172 lbs 01/26/2013 Blood Pressure 1: 128/82 Code : 8480-6 BMI: 29.6 Code : 36892-4 Heart Rate 1 : 72 bpm Height: 5'5" Weight: 178 lbs 12/27/2012 Blood Pressure 1: 148/82 Code : 8480-6 Heart Rate 1: 76 bpm Weight: 179 lbs 10/11/2012 Blood Pressure 1: 130/80 Code : 8480-6 BMI: 30.5 Code : 66783-7 Heart Rate 1 : 68 bpm Height: 5'5" Weight: 183 lbs 09/21/2012 Blood Pressure 1: 142/86 Code : 8480-6 Heart Rate 1: 80 bpm Weight: 182 lbs 08/02/2012 Blood Pressure 1: 144/72 Code : 8480-6 Heart Rate 1: 72 bpm Temperature: 36.8 (C) / 98.2 (F) Weight: 179 lbs 06/27/2012 Blood Pressure 1: 136/84 Code : 8480-6 BMI: 29.5 Code : 75810-7 Heart Rate 1 : 68 bpm Height: 5'5" Respiratory Rate: 16 bpm Weight: 177 lbs 06/06/2012 Blood Pressure 1: 144/80 Code : 8480-6 BMI: 30.6 Code : 35530-7 Heart Rate 1 : 76 bpm Height: [...] Code : 8480-6 BMI: 31.1 Code : 28614-8 Heart Rate 1 : 78 bpm Height: 5'5" Weight: 187 lbs 10/19/2011 Blood Pressure 1: 112/60 Code : 8480-6 Heart Rate 1: 80 bpm SpO2: 97% Temperature: 36.7 (C) / 98.0 (F) Weight: 188 lbs 09/09/2011 Blood Pressure 1: 130/70 Code : 8480-6 BMI: 31.1 Code : 48110-3 Heart Rate 1 : 66 bpm Height: 5'5" Weight: 187 lbs 08/13/2011 Blood Pressure 1: 116/70 Code : 8480-6 BMI: 30.6 Code : 92839-1 Heart Rate 1 : 64 bpm Height: 5'5" Respiratory Rate: 20 bpm Weight: 184 lbs 07/02/2011 Blood Pressure 1: 112/60 Code : 8480-6 BMI: 30.4 Code : 93050-2 Heart Rate 1 : 66 bpm Height: 5'5" Respiratory Rate: 12 bpm Weight: 182 lbs 8 oz 06/24/2011 Blood Pressure 1: 127/58 Code : 8480-6 Heart Rate 1: 84 bpm Weight: 04/16/2011 Blood Pressure 1: 120/78 Code : 8480-6 BMI: 30.8 Code : 11471-8 Heart Rate 1 : 76 bpm Height: 5'5" Respiratory Rate: 16 bpm Weight: 185 lbs Functional Status No Functional Status data History of Present Illness Symptom Name Status Result Effective Date Notes hypertension Quality primary hypertension 10/05/2017 None hypertension Onset and Resolution ongoing 10/05/2017 None hypertension Onset of Symptom during adulthood 10/05/2017 None hypertension Alleviating Factors medication 10/05/2017 None hypertension Pertinent Findings dizziness 10/05/2017 "a little" if she has been sitting for a while hypertension Pertinent Findings Denies edema 10/05/2017 None hypertension Blood Pressure Values patient checking blood pressure at home - did not bring in readings 10/05/2017 None hypertension Pertinent Findings Denies dyspnea 10/05/2017 None depression Quality chronic 09/03/2017 None depression Onset [...] pain Location diffusely 04/18/2013 having epidurals in [place], concerned because they didn't do mri of [...] weeks along. 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 PATIENT, LEVEL III Diagnosis: Essential (primary) hypertension[ICD10: I10] [facility] CPT-4: 46543 10/05/2017 [id number]) 84219 EST. PATIENT, LEVEL I Diagnosis: Essential (primary) hypertension[ICD10: I10] [facility] CPT-4: 95296 09/09/2017 [id number]) 39898 EST. PATIENT, LEVEL III Diagnosis: Essential (primary) hypertension[ICD10: I10] Diagnosis: Chronic pain syndrome[ICD10: G89.4] [facility] CPT-4: 88591 09/03/2017 ([id number]) 14022 EST. PATIENT, LEVEL III Diagnosis: Other idiopathic peripheral autonomic neuropathy[ICD10: G90.09] Diagnosis: Vitamin B12 deficiency anemia due to intrinsic factor deficiency[ ICD10: D51.0] Diagnosis: Major depressive disorder, recurrent, moderate[ICD10: F33.1] Diagnosis: Encounter for immunization[ICD10: Z23] Rachael Newby MD, [facility] CPT-4: 63647 05/27/2017 ([id number]) 73988 EST. PATIENT, LEVEL IV Diagnosis: Vitamin B12 deficiency anemia, unspecified[ICD10: D51.9] Diagnosis: Essential (primary) hypertension[ICD10: I10] Diagnosis: Chronic pain syndrome[ICD10: G89.4] Diagnosis: Major depressive disorder, recurrent, moderate[ICD10: F33.1] Diagnosis: Vitamin B12 deficiency anemia due to intrinsic factor deficiency[ ICD10: D51.0] R[facility]ael Newby MD [facility] CPT-4: 77453 04/27/2017 ([id number]) 34809 EST. PATIENT, LEVEL IV Diagnosis: Essential (primary) hypertension[ICD10: I10] Diagnosis: Other specified polyneuropathies[ICD10: G62.89] Rachael Newby MD [facility] CPT-4: 92238 03/09/2017 ([id number]) 15481 EST. PATIENT, LEVEL III Diagnosis: Essential (primary) hypertension[ICD10: I10] Diagnosis: Chronic pain syndrome[ICD10: G89.4] Diagnosis: Dysuria[ICD10: R30.0] Diagnosis: Allergic rhinitis due to pollen[ICD10: J30.1] [facility]ael [facility]by MD, [facility] CPT-4: 91773 02/22/2017 ([id number]) 57052 EST. PATIENT, LEVEL IV Diagnosis: Dysuria[ICD10: R30.0] Diagnosis: Urinary tract infection, site not specified[ICD10: N39.0] Diagnosis: Chronic pain syndrome[ICD10: G89.4] Rachael Newby MD, [facility] CPT-4: 43752 12/24/2016 ([id number]) 07570 EST. PATIENT, LEVEL III Diagnosis: Allergic urticaria[ICD10: L50.0] Jillian Newby MD, [facility] CPT-4: 33106 10/06/2016 ([id number]) 28692 EST. PATIENT, LEVEL IV Diagnosis: Essential (primary) hypertension[ICD10: I10] Diagnosis: Generalized anxiety disorder[ICD10: F41.1] Rachael Newby MD, [facility] CPT-4: 37743 10/01/2016 ([id number]) 45476 EST. PATIENT, LEVEL III Diagnosis: Displaced fracture of fifth metatarsal bone, left foot, initial encounter for closed fracture[ICD10: S92.352A] Diagnosis: Essential (primary) hypertension[ICD10: I10] [facility]ael Newby MD, [facility] CPT-4: 23853 09/01/2016 ([id number]) 82060 EST. PATIENT, LEVEL IV Diagnosis: Essential (primary) hypertension[ICD10: I10] Diagnosis: Chronic pain syndrome[ICD10: G89.4] Diagnosis: Vitamin B12 deficiency anemia, unspecified[ICD10: D51.9] Diagnosis: Vitamin D deficiency, unspecified[ICD10: E55.9] Diagnosis: Anemia, unspecified[ICD10: D64.9] Jillian Newby MD, [facility] CPT-4: 07915 08/11/2016 ([id number]) 07624 EST. PATIENT, LEVEL III Diagnosis: Chronic pain syndrome[ICD10: G89.4] Diagnosis: Rash and other nonspecific skin eruption[ICD10: R21] Rachael Newby MD, [facility] CPT-4: 42205 07/01/2016 ([id number]) 20669 EST. PATIENT, LEVEL IV Diagnosis: Vitamin B12 deficiency anemia, unspecified[ICD10: D51.9] Diagnosis: Anemia, unspecified[ICD10: D64.9] Diagnosis: Essential (primary) hypertension[ICD10: I10] Rachael Newby MD, [facility] CPT-4: 12944 04/23/2016 ([id number]) 31553 EST. PATIENT, LEVEL III Diagnosis: Essential (primary) hypertension[ICD10: I10] Diagnosis: Dysuria[ICD10: R30.0] Diagnosis: Chronic pain syndrome[ICD10: G89.4] [facility]ael [facility] MD [facility] CPT-4: 42900 03/03/2016 ([id number]) 79008 EST. PATIENT, LEVEL III Diagnosis: Generalized anxiety disorder[ICD10: F41.1] Diagnosis: Other specified dermatitis[ICD10: L30.8] [facility]ael Newby MD [facility] CPT-4: 89002 01/14/2016 32749 EST. PATIENT, LEVEL III Diagnosis: Encounter for follow-up examination after completed treatment for conditions other than malignant neoplasm[ICD10: Z09] Diagnosis: Family history of malignant neoplasm of digestive organs[ICD10: Z80.0 ] Diagnosis: Vitamin B12 deficiency anemia, unspecified[ICD10: D51.9] Brina Newby MD, [facility] CPT-4: 56870 12/03/2015 ([id number]) 16057 EST. PATIENT, LEVEL IV Diagnosis: Essential (primary) hypertension[ICD10: I10] Diagnosis: Anemia, unspecified[ICD10: D64.9] Diagnosis: Mixed hyperlipidemia[ICD10: E78.2] Diagnosis: Gastro-esophageal reflux disease without esophagitis[ICD10: K21.9] Rachael Newby MD, [facility] CPT-4: 76911 10/10/2015 ([id number]) 44912 EST. PATIENT, LEVEL IV Diagnosis: Essential (primary) hypertension[ICD10: I10] Diagnosis: Generalized anxiety disorder[ICD10: F41.1] Diagnosis: Pain in right shoulder[ICD10: M25.511] Rachael Newby MD [facility] CPT-4: 64195 08/28/2015 ([id number]) 95200 EST. PATIENT, LEVEL IV Diagnosis: Other constipation[ICD10: K59.09] Diagnosis: Chronic pain syndrome[ICD10: G89.4] Diagnosis: Essential (primary) hypertension[ICD10: I10] Diagnosis: Frequency of micturition[ICD10: R35.0] Rachael Newby MD, [facility] CPT-4: 79135 06/12/2015 ([id number]) 43061 EST. PATIENT, LEVEL IV Diagnosis: OTHER CONSTIPATION[ICD9: 564.09] Diagnosis: ESSENTIAL HYPERTENSION[ICD9: 401.9] Rachael Newby MD, [facility] CPT-4: 03588 05/09/2015 [id number]) 43835 EST. PATIENT, LEVEL IV Diagnosis: Abdominal pain[ICD9: 789.00] Diagnosis: Vitamin D deficiency[ICD9: 268.9] Diagnosis: Vitamin B 12 deficiency[ICD9: 266.2] Diagnosis: Peripheral neuropathy[ICD9: 356.9] Diagnosis: ESSENTIAL HYPERTENSION[ICD9: 401.9] Diagnosis: Anxiety, generalized[ICD9: 300.02] Rachael Newby MD, [facility] CPT-4: 14607 04/12/2015 [id number]) 30204 EST. PATIENT, LEVEL IV Diagnosis: Hemorrhoids[ICD9: 455.6] Diagnosis: Blood in stool[ICD9: 578.1] Diagnosis: Weight loss[ICD9: 783.21] Diagnosis: ESSENTIAL HYPERTENSION[ICD9: 401.9] Jillian Newby MD, [facility] CPT-4: 75410 03/12/2015 [id number]) 14403 EST. PATIENT, LEVEL IV Diagnosis: Heart murmur[ICD9: 785.2] Diagnosis: Aortic regurgitation[ICD9: 424.1] Diagnosis: ESSENTIAL HYPERTENSION[ICD9: 401.9] Diagnosis: CHRONIC PAIN SYNDROME[ICD9: 338.4] Diagnosis: Fatigue[ICD9: 780.79] Diagnosis: MYALGIA AND MYOSITIS[ICD9: 729.1] Diagnosis: Vitamin B 12 deficiency[ICD9: 266.2] Rachael Newby MD, [facility] CPT-4: 95903 01/08/2015 [id number]) 28356 EST. PATIENT, LEVEL III Diagnosis: ACUTE URI[ICD9: 465.9] Diagnosis: Vitamin B 12 deficiency[ICD9: 266.2] Rachael Newby MD, [facility] CPT-4: 09914 10/04/2014 [id number]) 42965 EST. PATIENT, LEVEL IV Diagnosis: ESSENTIAL HYPERTENSION[ICD9: 401.9] Diagnosis: Vitamin B 12 deficiency[ICD9: 266.2] Diagnosis: Esophageal reflux[ICD9: 530.81] Rachael Newby MD, [facility] CPT- 4: 00563 09/10/2014 [id number]) 75437 EST. PATIENT, LEVEL III Diagnosis: ESSENTIAL HYPERTENSION[ICD9: 401.9] Diagnosis: ACUTE URI[ICD9: 465.9] Rachael Newby MD, [facility] CPT-4: 16448 08/06/2014 ([id number]) 66465 EST. PATIENT, LEVEL III Diagnosis: Vitamin B 12 deficiency[ICD9: 266.2] Diagnosis: CHRONIC PAIN SYNDROME[ICD9: 338.4] Diagnosis: ESSENTIAL HYPERTENSION[ICD9: 401.9] Rachael Newby MD, [facility] CPT-4: 52342 07/12/2014 ([id number]) 28241 EST. PATIENT, LEVEL IV Diagnosis: Anxiety, generalized[ICD9: 300.02] Diagnosis: Insomnia[ICD9: 780.52] Diagnosis: VACCIN FOR INFLUENZA[ICD10: Z23] Diagnosis: Vitamin B 12 deficiency[ICD9: 266.2] Rachael Newby MD [facility] CPT-4: 38490 05/16/2014 ([id number]) 18943 EST. PATIENT, LEVEL III Diagnosis: ESSENTIAL HYPERTENSION[ICD9: 401.9] Diagnosis: Vitamin B 12 deficiency[ICD9: 266.2] Diagnosis: Insomnia[ICD9: 780.52] Rachael Newby MD, [facility] CPT-4: 19414 04/05/2014 ([id number]) 21539 EST. PATIENT, LEVEL IV Diagnosis: ESSENTIAL HYPERTENSION[ICD9: 401.9] Diagnosis: DEPRESSIVE DISORDER NEC[ICD9: 311] Diagnosis: MYALGIA AND MYOSITIS[ICD9: 729.1] Rachael Newby MD, [facility] CPT-4: 85332 03/05/2014 ([id number]) 27842 EST. PATIENT, LEVEL III Diagnosis: Dyshidrotic eczema[ICD9: 705.81] Diagnosis: B-COMPLEX DEFIC NEC[ICD9: 266.2] Jillian Newby MD, [facility] CPT-4: 95901 02/01/2014 ([id number]) 02059 EST. PATIENT, LEVEL III Diagnosis: Rash[ICD9: 782.1] Diagnosis: ESSENTIAL HYPERTENSION[SNOMED: 51237543] Jillian Newby MD, [facility] CPT-4: 87893 12/07/2013 ([id number]) 58574 EST. PATIENT, LEVEL IV Diagnosis: ESSENTIAL HYPERTENSION[SNOMED: 00947693] Diagnosis: MYALGIA AND MYOSITIS[ICD9: 729.1] Diagnosis: DEPRESSIVE DISORDER NEC[ICD9: 311] Diagnosis: Dietary counseling[ICD9: V65.3] Rachael Newby MD, [facility] CPT- 4: 11039 09/25/2013 ([id number]) 77944 EST. PATIENT, LEVEL IV Diagnosis: ESSENTIAL HYPERTENSION[SNOMED: 27710452] Diagnosis: DEPRESSIVE DISORDER NEC[ICD9: 311] Diagnosis: Fatigue[ICD9: 780.79] Rachael Newby MD, [facility] CPT-4: 46474 09/04/2013 ([id number]) 72020 EST. PATIENT, LEVEL III Diagnosis: Back pain[ICD9: 724.5] Rachael Newby MD [facility] CPT-4: 81704 05/18/2013 ([id number]) 02090 EST. PATIENT, LEVEL III Diagnosis: ESSENTIAL HYPERTENSION[SNOMED: 23935121] Diagnosis: Sacroiliitis[ICD9: 720.2] Diagnosis: Sleep apnea[ICD9: 780.57] Rachael Newby MD, [facility] CPT-4: 10972 04/18/2013 ([id number]) 23154 EST. PATIENT, LEVEL IV Diagnosis: ESSENTIAL HYPERTENSION[SNOMED: 68323267] Diagnosis: Fatigue[ICD9: 780.79] Diagnosis: Snoring disorder[ICD9: 786.09] Rachael Newby MD [facility] CPT- 4: 69779 03/16/2013 ([id number]) 83717 EST. PATIENT, LEVEL III Diagnosis: CELLULITIS OF NECK[ICD9: 682.1] Diagnosis: CELLULITIS OF TRUNK[ICD9: 682.2] Rachael Newby MD, [facility] CPT-4: 26746 01/26/2013 ([id number]) 14281 EST. PATIENT, LEVEL III Diagnosis: ESSENTIAL HYPERTENSION[SNOMED: 34255335] Diagnosis: CELLULITIS, FINGER[ICD9: 681.00] Diagnosis: ENCNTR LONG-RX USE NEC[ICD9: V58.69] Diagnosis: Vitamin B 12 deficiency[ICD9: 266.2] Diagnosis: JOINT PAIN-HAND[ICD9: 719.44] Jillian Newby MD, [facility] CPT-4: 14968 12/27/2012 ([id number]) 22139 EST. PATIENT, LEVEL IV Diagnosis: ESSENTIAL HYPERTENSION[SNOMED: 88619815] Diagnosis: HYPERLIPIDEMIA[ICD9: 272.4] Diagnosis: MYALGIA AND MYOSITIS[ICD9: 729.1] Rachael Newby MD [facility] CPT-4: 32600 10/11/2012 ([id number]) 15722 EST. PATIENT, LEVEL IV Diagnosis: ESSENTIAL HYPERTENSION[SNOMED: 98642439] Diagnosis: Anxiety, generalized[ICD9: 300.02] Diagnosis: Fatigue[ICD9: 780.79] Diagnosis: Depression[ICD9: 311] Rachael Newby MD, [facility] CPT-4: 30057 09/21/2012 ([id number]) 35914 EST. PATIENT, LEVEL III Diagnosis: Dental abscess[ICD9: 522.5] Diagnosis: ACUTE MAXILLARY SINUSITIS[ICD9: 461.0] Rachael Newby MD, [facility] CPT-4: 84663 08/02/2012 ([id number]) 08565 EST. PATIENT, LEVEL III Diagnosis: SACROILIITIS NEC[ICD9: 720.2] Diagnosis: CHRONIC PAIN SYNDROME[ICD9: 338.4] Rachael Newby MD, [facility] CPT-4: 51285 06/27/2012 ([id number]) 69979 EST. PATIENT, LEVEL IV Diagnosis: ESSENTIAL HYPERTENSION[SNOMED: 99949925] Diagnosis: Tennis elbow[ICD9: 726.32] Diagnosis: Neck pain on right side[ICD9: 723.1] Rachael Newby MD, [facility] CPT-4: 32687 06/06/2012 ([id number]) 77734 EST. PATIENT, LEVEL IV Diagnosis: Esophageal reflux[ICD9: 530.81] Diagnosis: Cervicalgia[ICD9: 723.1] Diagnosis: Medial epicondylitis[ICD9: 726.31] Jillian Newby MD, [facility] CPT-4: 32834 05/16/2012 ([id number]) 83449 EST. PATIENT, LEVEL IV Diagnosis: EDEMA[ICD9: 782.3] Diagnosis: Chronic pain disorder[ICD9: 338.4] Diagnosis: DEPRESSIVE DISORDER NEC[ICD9: 311] Diagnosis: MALAISE AND FATIGUE[ICD9: 780.79] Rachael Newby MD, [facility] CPT-4: 76183 02/29/2012 ([id number]) 57804 EST. PATIENT, LEVEL IV Diagnosis: ANEMIA[ICD9: 285.9] Diagnosis: Fatigue[ICD9: 780.79] Rachael Newby MD [facility] CPT-4: 86846 02/08/2012 ([id number]) 71499 EST. PATIENT, LEVEL IV Diagnosis: Acute renal failure[ICD9: 584.9] Diagnosis: Fatigue[ICD9: 780.79] Diagnosis: Myalgia[ICD9: 729.1] Rachael Newby MD [facility] CPT-4: 46908 02/01/2012 ([id number]) 08612 EST. PATIENT, LEVEL III Diagnosis: Oral aphthae[ICD9: 528.2] Diagnosis: Fatigue[ICD9: 780.79] Diagnosis: History of iron deficiency anemia[ICD9: V12.3] Diagnosis: HYPERLIPIDEMIA[ICD9: 272.4] Diagnosis: ESSENTIAL HYPERTENSION[SNOMED: [id number]] Jillian Newby MD, [facility] CPT-4: 71394 01/22/2012 ([id number]) 95004 EST. PATIENT, LEVEL III Diagnosis: ACUTE SINUSITIS[ICD9: 461.9] Jillian Newby MD [facility] CPT-4: 86596 10/19/2011 ([id number]) [id number] EST. PATIENT, LEVEL III Diagnosis: ACUTE SINUSITIS[ICD9: 461.9] Diagnosis: JOINT PAIN-L/LEG[ICD9: 719.46] Rachael Newyb MD, [facility] CPT- 4: 06950 08/13/2011 [id number] EST. PATIENT, LEVEL III Diagnosis: JOINT PAIN-L/LEG[ICD9: 719.46] Diagnosis: Primary localized osteoarthrosis of the knee[ICD9: 715.16] Rachael Newby MD [facility] CPT-4: 83265 07/02/2011 [id number] EST. PATIENT, LEVEL III Diagnosis: Knee pain, left[ICD9: 719.46] Diagnosis: Fall from slipping[ICD9: E885.9] Jillianjimbo Newby MD, [facility] CPT-4: 76662 06/24/2011 [id number] EST. PATIENT, LEVEL III Diagnosis: Aphthous ulcer[ICD9: 528.2] Rachael Newby MD, [facility] CPT- 4: 88995 04/16/2011 Plan of Care Planned Activity Notes [...] pt is to call for acute concerns. start on losartan 50mg one time daily 10/05/2017 Patient Education: Patient Medication Summary Completed 10/05/2017 Appointment: Nurse Visit 09/28/2017 Patient Education: Patient [...] refilled hydrocodone. 09/03/2017 Appointment: Rachael Newby WPtel: [facility] [id number] [place] (15 min) Moderate 09/03/2017 Patient Education: Patient Medication Summary Completed 09/03/2017 Appointment: Rachael Newby WPtel: [facility] [id number] [place] (15 min) Moderate 08/26/2017 Appointment: KeyonnaSana ramirezy [facility]el[phone] [facility] [place] [place] (15 min) Moderate 07/14/2017 Visit Plan: Peripheral [...] No change in current medications. 05/27/2017 Appointment: Keyonna [facility]ael [phone] [place] (15 min) Moderate 05/27/2017 Patient Education: Patient [...] Appointment: Injection 04/27/2017 Appointment: Rachael Newby [facility]el: [phone] [facility] [facility] [place] [place] (15 min) Moderate 04/27/2017 Patient Education: [...] Summary Completed 03/09/2017 Appointment: Rachael Newby WPtel: [facility]1 [facility] (15 min) Moderate 02/25/2017 Visit Plan: [...] today 02/22/2017 Appointment: Rachael Newby WPtel: [phone] [facility] (15 min) Moderate 02/22/2017 Patient Education: Patient [...] care surrogate. 12/28/2016 Appointment: Brina Cazares WPtel: [facility]9 [facility] [facility] - Annual Wellness Visit 12/28/2016 Patient [...] are finished. 12/24/2016 Appointment: Rachael Newby WPtel: [facility]5 [facility] (15 min) Moderate 12/24/2016 Patient Education: Patient Medication Summary Completed 12/24/2016 Appointment: Brina Cazares WPtel: [facility] [facility] - Annual Wellness Visit 11/26/2016 Appointment: Injection 10/14/2016 Patient Education: Patient Medication Summary Completed 10/14/2016 Visit Plan: Hives-short course of prednisone-start claritin and pepcid as directed-call if symptoms do not resolve or if any worse. Patient verbalized understanding of plan. 10/06/2016 Appointment: Jillian Dalal WPtel: [facility]8 [phone] (30 min) Complex 10/06/2016 Patient Education: Patient [...] current medications. 10/01/2016 Appointment: Rachael Newby WPtel: [facility]0 [facility] (15 min) Moderate 10/01/2016 Patient Education: [...] at home. 09/01/2016 Appointment: Rachael Newby WPtel: [phone] [facility] (15 min) Moderate 09/01/2016 Patient Education: Patient Medication Summary Completed 09/01/2016 Care Plan: Referral Order SNOMED-CT : [id number] Pending 09/01/2016 Visit Plan: Hypertension - well [...] Dr Palacio 08/11/2016 Appointment: Jillian Dalal WPtel: [phone] [phone] [place] (15 min) Moderate 08/11/2016 Patient Education: Patient Medication Summary Completed 08/11/2016 Care Plan: Referral Order SNOMED-CT : [id number] Pending 08/11/2016 Visit Plan: Chronic Pain Syndrome - pt has chronic pain - has been maintained on current medications, has not sought out other medications , only uses PRN pain medications as directed, and understands the consequences of over-medication. RX for Efudex to be used on hands until lesions healed 07/01/2016 Appointment: Rachael Newby WPtel: [phone] [facility] [place] (15 min) Moderate 07/01/2016 Patient [...] orally. 04/23/2016 Appointment: Rachael Newby WPtel: [phone] [facility] [place] (15 min) Moderate 04/23/2016 Patient Education: [...] Summary Completed 03/03/2016 Appointment: Rachael Newby WPtel: [phone] [facility] [place] (15 min) Moderate 02/17/2016 Visit Plan: Rash - Rx for betamethasone for the rash on left lateral lower leg and right hand on dorsum over digits #3/4. Anxiety - uncontrolled - RX for buspar. 01/14/2016 Patient Education: Patient Medication Summary Completed 01/14/2016 Appointment: Rachael Newby WPtel: [phone] [facility] [place] (15 min) Moderate 01/13/2016 Visit Plan: [...] testing. 12/03/2015 Appointment: Jillian Dalal WPtel: [phone] [phone] [place] (15 min) Moderate 12/03/2015 Patient Education: [...] of over-medication. 10/10/2015 Appointment: Rach[facility] Newby [facility]Ptel: [phone] [facility] [place] [place] (15 min) Moderate 10/10/2015 Patient Education: [...] on her shoulder from Dr. Paz in [place]. 08/28/2015 Patient Education: Patient Medication Summary Completed 08/28/2015 Patient Education: Hypertension Completed 08/28/2015 Appointment: Rachael Newby WPtel: [facility] [address] (15 min) Moderate 08/07/2015 Visit Plan: Hypertension [...] pain medication. 06/12/2015 Appointment: Rachael Newby WPtel: [facility]3 [facility] (15 min) Moderate 06/12/2015 Patient Education: [...] regimen. 05/09/2015 Appointment: Rachael Newby WPtel: [phone] [facility] [place] (15 min) Moderate 05/09/2015 Patient Education: Patient [...] 04/12/2015 Care Plan: CT ABD & PELV > [facility] : 71819-0 Ordered 04/12/2015 Visit Plan: Hypertension - well controlled - continue with current medications, continue with no added salt diet. Pt has been encouraged to exercise daily. The pt has been advised to call the office if there are any acute concerns about change in blood pressure readings at home. Black stool- check stools Hemorrhoid-RX for anusol suppositories and instructed on use Weight irei-mhavfozwqplws-azmpp stools and labs-refer to Dr Riddle if [...] ESR, CRP. 01/08/2015 Appointment: Rachael Newby WPtel: [facility]5 [facility] Follow up 01/08/2015 Patient Education: Patient Medication Summary Completed 01/08/2015 Patient Education: Hypertension Completed 01/08/2015 Care Plan: Referral Order SNOMED-CT : [id number] Ordered 01/08/2015 Appointment: Injection 11/28/2014 Patient Education: Patient Medication Summary Completed 11/28/2014 Patient Education: Patient Medication Summary Completed 10/15/2014 Care Plan: SCREENINGMAMMOGRAPHYDIGITAL LOINC : 83414-6 Ordered 10/15/2014 Visit Plan: URI - Pt advised to increase fluids, vitamin C. Discussed natural and expected course of this diagnosis and need to alert me if symptoms do not follow expected course, or if any worse. RX sent to patient' s pharmacy. 10/04/2014 Appointment: Rachael Newby WPtel: [facility]5 [facility] [facility] 10/04/2014 Patient Education: Patient Medication Summary Completed [...] today 09/10/2014 Appointment: Rachael Newby WPtel: [phone] [facility] Follow up 09/10/2014 Patient Education: Patient [...] given today 08/06/2014 Appointment: Rachael Newby WPtel: [phone] [facility] [place] [place] called and confirmed appt Follow up [...] , and understands the consequences of over-medication. ZEV-DNU-jnuky follow up with cardiology-patient wants to wait until after holidays-does not want to go back to Dr Wong-refer to Dr Tenorio-patient is going to call us when she gets home. 07/12/2014 Appointment: Sick 07/12/2014 Patient Education: Patient Medication Summary Completed 07/12/2014 Patient Education: Hypertension Completed 07/12/2014 Patient Education: Patient Medication Summary Completed 06/28/2014 Appointment: Rachael Newby WPtel: [facility] [place] [place] Injection 06/14/2014 Patient Education: Patient Medication Summary Completed 06/14/2014 Appointment: Rachael Newby WPtel: [phone] [facility] [place] [place] Injection 05/31/2014 Patient Education: Patient Medication Summary Completed 05/31/2014 Appointment: Rachael Newby WPtel: [facility] [place] [place] Injection 05/23/2014 Visit Plan: Anxiety - [...] insomnia. 05/16/2014 Appointment: Rachael Newby WPtel: [phone] [facility] Follow up 05/16/2014 Patient Education: Patient Medication [...] myalgias improve. 03/05/2014 Appointment: Rachael Newby WPtel: [phone] [facility] [place] Follow up 03/05/2014 Patient Education: Patient Medication Summary Completed 03/05/2014 Patient Education: Hypertension Completed 03/05/2014 Visit Plan: Dyshidrotic eczema-RX for betamethasone cream- discussed natural and expected course of this diagnosis and to alert me if symptoms do not follow expected course, or if any worse. RX sent to patient's pharmacy. Patient verbalized understanding of plan. 02/01/2014 Appointment: Jillian Dalal WPtel: [phone] [phone] [place] Follow up 02/01/2014 Patient Education: Patient Medication Summary Completed 02/01/2014 Appointment: Jillian Dalal WPtel: [facility]5 [phone] [place] Injection 12/29/2013 Patient Education: Patient Medication Summary Completed 12/29/2013 Appointment: Rachael Newby WPtel: [facility]5 [facility] [place] Injection 12/27/2013 Visit Plan: Rash-RX sent to patient's pharmacy-keep hands clean and dry-call next week with update on symptoms HTN-well controlled-CAD- diastolic dysfunction-no recent cardiology follow up and significant heart murmur-recommend appointment with Dr Wong. 12/07/2013 Appointment: Jillian Dalal WPtel: [facility]5 [phone] [place] rash 12/07/2013 Patient Education: Patient Medication [...] muscle aches. 09/25/2013 Appointment: Rachael Newby WPtel: [facility]0 [facility] Follow up 09/25/2013 Patient Education: Patient Medication Summary Completed 09/25/2013 Patient Education: .Amazing charts Diabetic meal planning guide Completed 09/25 Patient Education: Hypertension Completed 09/25/2013 Appointment: Rachael Newby WPtel: [facility]5 [facility] [place] Lab Draw 09/05/2013 Visit Plan: [...] vitamin d 09/04/2013 Appointment: Rachael Newby WPtel: [facility] [place] Follow up 09/04/2013 Patient Education: Patient Medication Summary Completed 09/04/2013 Patient Education: Hypertension Completed 09/04/2013 Appointment: Rachael Newby WPtel: [address] [place], [place] [id number] [place] Follow up 08/29/2013 Visit Plan: Sacroilitis - shots in SI joints today - back exercises discussed with the patient, pt to continue with antiinflammatories. Pt is to call if the symptoms do not improve or if they worsen. 05/18/2013 Appointment: Rachael Newby WPtel: [facility] [place] Follow up 05/18/2013 Patient Education: Patient Medication [...] acute pain-recommend f/u with Dr Marin at [address] 04/18/2013 Appointment: Jillian Dalal WPtel: [facility]5 [phone] Follow up 04/18/2013 Patient Education: Patient Medication Summary Completed 04/18/2013 Patient Education: Hypertension Completed 04/18/2013 Appointment: Rachael Newby WPtel: [facility]5 [facility] Follow up 04/13/2013 Visit Plan: Hypertension - [...] RECOMMENDED A SLEEP STUDY. 03/16/2013 Appointment: Rachael eNwby WPtel: [facility]5 [facility] Follow up 03/16/2013 Patient Education: Patient Medication Summary Completed 03/16/2013 Patient Education: Hypertension Completed 03/16/2013 Appointment: Rachael Newby WPtel: [facility]5 [facility] [place] Follow up 02/28/2013 Visit Plan: Cellulitis - continue with oral antibiotics as previously directed, return to clinic as previously directed, call for acute change in symptoms, worsening redness, warmth, discharge. 01/26/2013 Appointment: Rachael Newby WPtel: [facility]5 [facility] Other 01/26/2013 Patient Education: Patient Medication Summary [...] concerns. 12/27/2012 Appointment: Jillian Dalal WPtel: [phone] [phone] [facility] 12/27/2012 Patient Education: Patient Medication Summary Completed [...] not improve. 10/11/2012 Appointment: Rachael Newby WPtel: [phone] [facility] [place] Follow up 10/11/2012 Patient Education: Patient Medication Summary Completed 10/11/2012 Patient Education: Hypertension Completed 10/11/2012 Appointment: Jillian Dalal WPtel: [phone] [phone] Lab Draw 10/07/2012 Patient Education: Patient Medication Summary Completed 10/07/2012 Patient Education: Hypertension Completed 10/07/2012 Appointment: Rachael Newby WPtel: [facility] [place] Lab Draw 09/26/2012 Visit Plan: Hypertension - [...] - tomorrow 09/21/2012 Appointment: Rachael Newby WPtel: [facility] [place] Follow up 09/21/2012 Patient Education: Patient Medication Summary Completed 09/21/2012 Patient Education: Hypertension Completed 09/21/2012 Visit Plan: Dental abcess- Sinusitis- pt to start on clindamycin and flagyl, use sinus rinse, and see dentist SUSAN 08/02/2012 Appointment: Rachael Newby WPtel: [facility] [place] S[place] 08/02/2012 Patient Education: Patient Medication Summary Completed 08/02/2012 Visit Plan: Sacroilitis - Pt is unable to use oral antiinflammatories of the NSAID variety due to compromised renal function, therefore, until she is able to receive injections from the specialist at [facility], she will be on a steroid taper. Back and leg pain - steroid shot today - pt to see specialist for epidural and SI joint injections SUSAN 06/27/2012 Appointment: Rachael Newby WPtel: [facility] [place] Follow up 06/27/2012 Patient Education: Patient Medication [...] the right. 06/06/2012 Appointment: Rachael Newby WPtel: [facility] [place] Follow up 06/06/2012 Patient Education: Patient Medication [...] of plan. 05/16/2012 Appointment: Jillian Dalal WPtel: [phone] [facility] Other 05/16/2012 Patient Education: Patient Medication Summary Completed 05/16/2012 Visit Plan: Edema has improved - continue with current treatment, low sodium diet, call for any acute changes in the symptoms. Pt is planning a trip to [place] soon and I have encouraged her to [...] medication. 02/29/2012 Appointment: Rachael Newby WPtel: [phone] [place] Follow up 02/29/2012 Patient Education: Patient Medication [...] supplements daily. 02/08/2012 Appointment: Rachael Newby WPtel: [phone] [facility] [place] Follow up 02/08/2012 Patient Education: Patient Medication [...] renal function. 02/01/2012 Appointment: Rachael Newby WPtel: [phone] [facility] [place] [place] Other 02/01/2012 Patient Education: Patient Medication [...] at home. 01/22/2012 Appointment: Jillian Dalal WPtel: [phone] [phone] [place] Other 01/22/2012 Patient Education: Patient Medication [...] and plan.. 09/09/2011 Appointment: Rachael Newby WPtel: [phone] [facility] [facility] 09/09/2011 Patient Education: Patient Medication Summary Completed 09/09/2011 Appointment: Rachael Newby WPtel: [phone] [facility] [place] Pap Only 09/03/2011 Visit Plan: Sinusitis [...] for removal. 07/02/2011 Appointment: Rachael Newby WPtel: [phone] [facility] Other 07/02/2011 Patient Education: Patient Medication [...] or worsen. 06/24/2011 Appointment: Jillian Dalal WPtel: [phone] Other 06/24/2011 Patient Education: Patient Medication Summary Completed 06/24/2011 Visit Plan: Apthous ulcer-take the acyclovir as directed. QID x 7 days, then bid x 1 month. Pt advised to stop eating acidic foods, stop drinking pop, start on a multivitamin. 04/16/2011 Appointment: Rachael Newby WPtel: [facility] Other 04/16/2011 Patient Education: Patient Medication Summary Completed 04/16/2011 Referral: Yandel Hernandez Referral Appointment Requested Referral: Dago Tenorio WPtel: [address] [place] [address] Referral Completed Instructions Comment hold LIPITOR x [...] directed, and understands the consequences of over-medication. FBN-DRF-vxhqs follow up with cardiology-patient wants to wait [...] anusol suppositories and instructed on use Weight jxrh-sfwthttglzbpt-ckrgy stools and labs-refer to Dr Riddle if indicated Cosmo Paz MD - Orthopedic surgeon in [facility] - consider this for possible [...] on her shoulder from Dr. Paz in [place]. . Paronychia - continue with oral antibiotics [...] next week with update on symptoms HTN-well vjjsohetih-FML-pmnizklmx dysfunction-no recent cardiology follow up and significant [...] change in blood pressure readings at home. Zargavd-eqwlbadkxsvu-uayxgjgq xanax at 2pm-take a full tab to [...] cymbalta. Chronic pain syndrome - refilled hydrocodone. start on losartan 50mg one time daily . Hypertension - uncontrolled - the patient's [...] pt is to call for acute concerns. start on losartan 50mg one time daily cerave cream - over the counter use [...] symptoms. Pt is planning a trip to [place] soon and I have encouraged her to [...] acute pain-recommend f/u with Dr Marin at [facility] [address] start drinking 4 ounces of [...]
--- NOTE | 2018-07-05 08:28 | Cardiac Procedure Note-CS/ASA ---
Pre-Procedure Note Pre-Op Procedure Note H&P Reviewed The H&P was reviewed, patient examined and no changes noted. Date H&P Reviewed: Jul 05, 2018 Time H&P Reviewed: 08:10 Conscious Sedation Pre-Proced Time 08:10 ASA Score 2 For ASA 3 and 4: Consider anesthesia and medical clearance. Also, for patients with a history of failed moderate sedation consider anesthesia. Airway Lungs Heart ASA score ASA 1: a normal healthy patient ASA 2: a patient with a mild systemic disease (mid diabetes, controlled hypertension, obesity ASA 3: a patient with a severe systemic disease that limits activity (angina , COPD, prior Myocardial infarction) ASA 4: a patient with an incapacitating disease that is a constant threat to life (CHF, renal failure) ASA 5: a moribund patient not expected to survive 24 hrs. (ruptured aneurysm) ASA 6: a declared brain patient whose organs are being harvested. For emergent operations, add the letter E after the classification Mallampati Classification Grade 2 Sedation Plan Analgesia, Amnesia, Plan communicated to team members, Discussed options with patient/fam, Discussed risks with patient/fam The patient is an appropriate candidate to undergo the planned procedure, sedation, and anesthesia. The patient immediately re-assessed prior to indication. KRISTIAN STEVEN MD FACP FAC CCDS Jul 05, 2018 08:28
--- OUTSIDE RECORDS SUMMARY | 2018-07-05 08:35 | XMS REPORT | Continuity of Care Document ---
Author Author [facility] Organization [facility] Address Unknown Phone Unavailable Allergies Active Description Code Type Severity Reaction Onset Reported/Identified Relationship to Patient Clinical Status Yes PENICILLIN G BENZATHINE MODERATE DERMATOLOGICAL - HIV Yes penicillin G [id number] Drug Allergy Mild HIVES...REC ANC 06/22/2012 Yes Iodinated Contrast Media - IV Dye [id number] Drug Allergy Unknown N/A 06/22 Yes Iodinated Contrast Media - Oral and [id number] Drug Allergy Unknown N/A Yes Iodinated Contrast- Oral and IV Dye [id number] Drug Allergy Unknown N/A Medications Medication Packaging Start Date Stop Date Route Dosage Sig SMZ/TMP DS TAB (SEPTRA DS) (Bactrim DS) TAB 04/02/2018 04/02/2018 ONCE&1810 MUPIROCIN OINT 2 % (BACTROBAN) bonita 04/02/2018 04/02/2018 PRN ONCE Problems Date Dx Coded Attending Type Code Diagnosis Diagnosed By 09/05/2009 Ot 311 09/05/2009 Ot 401.9 09/05/2009 Ot 714.9 09/05/2009 Ot V57.1 12/11/2009 Ot 311 12/11/2009 Ot 401.9 12/11/2009 Ot 719.41 12/11/2009 Ot V57.1 12/11/2009 Ot V58.49 05/21/2010 Ot 535.40 05/21/2010 Ot 564.00 05/21/2010 Ot 579.8 05/21/2010 Ot V45.3 05/21/2010 Ot V45.89 10/21/2011 Ot 311 10/21/2011 Ot 429.9 10/21/2011 Ot 717.7 10/21/2011 Ot V57.1 10/21/2011 Ot V58.69 12/26/2011 Ot 272.4 12/26/2011 Ot 285.1 12/26/2011 Ot 300.00 12/26/2011 Ot 311 12/26/2011 Ot 401.9 12/26/2011 Ot 429.9 12/26/2011 Ot 715.36 02/23/2012 Ot V43.65 02/23/2012 Ot V54.81 02/23/2012 Ot V57.1 06/22/2012 Ot 401.9 06/22/2012 Ot 530.11 06/22/2012 Ot 562.10 06/22/2012 Ot V10.05 06/22/2012 Ot V16.0 06/22/2012 Ot V76.51 03/24/2013 AGUEDA GRIGGS, CLAIR Acevedo Ot 327.23 04/14/2013 AGUEDA GRIGGS, CLAIR Acevedo Ot 327.23 04/14/2013 AGUEDA GRIGGS, CLAIR Acevedo Ot 327.51 02/09/2014 PAULETTE ABREU DO Ot 723.0 02/09/2014 PAULETTE ABREU DO Ot V57.1 08/27/2014 Ot 719.06 08/27/2014 Ot 719.46 08/27/2014 Ot 715.31 08/27/2014 Ot 721.0 08/27/2014 Ot 727.61 08/27/2014 Ot 782.0 08/27/2014 Ot V76.12 08/27/2014 Ot 727.61 08/27/2014 Ot V72.81 08/27/2014 Ot V74.8 08/27/2014 Ot 414.00 08/27/2014 Ot 414.00 08/27/2014 Ot 414.01 08/27/2014 Ot V76.12 08/27/2014 Ot 715.96 08/27/2014 Ot 959.7 08/27/2014 Ot E000.8 08/27/2014 Ot E849.0 08/27/2014 Ot E928.9 08/27/2014 Ot 424.1 08/27/2014 Ot 428.0 08/27/2014 Ot 786.50 08/27/2014 Ot 715.96 08/27/2014 Ot V76.12 08/27/2014 Ot 717.3 08/27/2014 Ot 717.40 08/27/2014 Ot V72.63 08/27/2014 Ot V74.8 08/27/2014 Ot 715.96 08/27/2014 Ot V57.1 08/27/2014 Ot V57.21 08/27/2014 Ot V72.63 08/27/2014 Ot V72.83 08/27/2014 Ot V74.8 08/27/2014 Ot V72.84 08/27/2014 Ot 721.0 08/27/2014 Ot 727.40 08/27/2014 Ot V72.84 08/27/2014 HEARNDON DO, SONYA L Ot 724.4 08/27/2014 HEARNDON DO, SONYA L Ot 721.2 08/27/2014 HEARNDON DO, SONYA L Ot 722.4 08/27/2014 HEARNDON DO, SONYA Diallo Ot 737.30 08/27/2014 QUE SCOTT Ot 611.71 08/27/2014 DULCE GRIGGS, CHAZ Gotti Ot 396.3 08/27/2014 DULCE GRIGGS, CHAZ Gotti Ot 397.0 08/27/2014 DULCE GRIGGS, CHAZ Gotti Ot 401.9 08/27/2014 DULCE GRIGGS, CHAZ Gotti Ot 780.79 08/27/2014 DULCE GRIGGS, CHAZ Gotti Ot 785.1 08/28/2014 Ot 719.06 08/28/2014 Ot 719.46 08/28/2014 Ot 715.31 08/28/2014 Ot 721.0 08/28/2014 Ot 727.61 08/28/2014 Ot 782.0 08/28/2014 Ot V76.12 08/28/2014 Ot 727.61 08/28/2014 Ot V72.81 08/28/2014 Ot V74.8 08/28/2014 Ot 414.00 08/28/2014 Ot 414.00 08/28/2014 Ot 414.01 08/28/2014 Ot V76.12 08/28/2014 Ot 715.96 08/28/2014 Ot 959.7 08/28/2014 Ot E000.8 08/28/2014 Ot E849.0 08/28/2014 Ot E928.9 08/28/2014 Ot 424.1 08/28/2014 Ot 428.0 08/28/2014 Ot 786.50 08/28/2014 Ot 715.96 08/28/2014 Ot V76.12 08/28/2014 Ot 717.3 08/28/2014 Ot 717.40 08/28/2014 Ot V72.63 08/28/2014 Ot V74.8 08/28/2014 Ot 715.96 08/28/2014 Ot V57.1 08/28/2014 Ot V57.21 08/28/2014 Ot V72.63 08/28/2014 Ot V72.83 08/28/2014 Ot V74.8 08/28/2014 Ot V72.84 08/28/2014 Ot 721.0 08/28/2014 Ot 727.40 08/28/2014 Ot V72.84 08/28/2014 HEARNDON DO, SONYA L Ot 724.4 08/28/2014 HEARNDON DO, SONYA L Ot 721.2 08/28/2014 HEARNDON DO, SONYA L Ot 722.4 08/28/2014 HEARNDON DO, SONYA L Ot 737.30 08/28/2014 QUE SCOTT Ot 611.71 08/28/2014 DULCE GRIGGS, CHAZ Gotti Ot 396.3 08/28/2014 DULCE GRIGGS, CHAZ Gotti Ot 397.0 08/28/2014 DULCE GRIGGS, CHAZ Gotti Ot 401.9 08/28/2014 DULCE GRIGGS, CHAZ Gotti Ot 780.79 08/28/2014 DULCE GRIGGS, CHAZ Gotti Ot 785.1 09/03/2014 JAEL GRIGGS, KORI Boogie Ot 211.3 09/03/2014 JAEL GRIGGS, KORI Boogie Ot 401.9 09/03/2014 JAEL GRIGGS, KORI Boogie Ot 530.10 09/03/2014 JAEL GRIGGS, KORI Boogie Ot 535.50 09/03/2014 JAEL GRIGGS, KORI Boogie Ot V76.51 09/22/2014 SAGAR GRIGGS, KWASI Sepulveda Ot 272.4 09/22/2014 SAGAR GRIGGS, KWASI Sepulveda Ot 327.23 09/22/2014 SAGAR GRIGGS, KWASI Sepulveda Ot 414.00 09/22/2014 SAGAR GRIGGS, KWASI Sepulveda Ot 530.81 09/22/2014 SAGAR GRIGGS, KWASI Sepulveda Ot 786.50 10/01/2014 SAGAR GRIGGS, KWASI Sepulveda Ot 272.4 10/01/2014 SAGAR GRIGGS, KWASI Sepulveda Ot 327.23 10/01/2014 SAGAR GRIGGS, KWASI Sepulveda Ot 414.00 10/01/2014 SAGAR GRIGGS, KWASI Sepulveda Ot 530.81 10/01/2014 SAGAR GRIGGS, KWASI Sepulveda Ot 786.50 12/12/2014 JAEL GRIGGS, KORI Boogie Ot V72.84 12/12/2014 JAEL GRIGGS, KORI Boogie Ot V72.84 02/25/2015 Ot 414.00 02/25/2015 Ot 414.00 02/25/2015 Ot 414.01 02/25/2015 Ot V76.12 02/25/2015 Ot 715.96 02/25/2015 Ot 959.7 02/25/2015 Ot E000.8 02/25/2015 Ot E849.0 02/25/2015 Ot E928.9 02/25/2015 Ot 424.1 02/25/2015 Ot 428.0 02/25/2015 Ot 786.50 02/25/2015 Ot 715.96 02/25/2015 Ot V76.12 02/25/2015 Ot 717.3 02/25/2015 Ot 717.40 02/25/2015 Ot V72.63 02/25/2015 Ot V74.8 02/25/2015 Ot 715.96 02/25/2015 Ot V57.1 02/25/2015 Ot V57.21 02/25/2015 Ot V72.63 02/25/2015 Ot V72.83 02/25/2015 Ot V74.8 02/25/2015 Ot V72.84 02/25/2015 Ot 721.0 02/25/2015 Ot 727.40 02/25/2015 Ot V72.84 02/25/2015 SONYA PATEL DO Ot 724.4 02/25/2015 HEARSONYA LUNA DO Ot 721.2 02/25/2015 HEARSONYA LUNA DO Ot 722.4 02/25/2015 HEARSONYA LUNA DO Ot 737.30 02/25/2015 QUE SCOTT Ot 611.71 02/25/2015 DULCE GRIGGS, CHAZ Gotti Ot 396.3 02/25/2015 DULCE GRIGGS, CHAZ Gotti Ot 397.0 02/25/2015 DULCE GRIGGS, CHAZ Gotti Ot 401.9 02/25/2015 DULCE GRIGGS, CHAZ Gotti Ot 780.79 02/25/2015 CHAZ CARDONA MD Ot 785.1 02/25/2015 JAEL GRIGGS, KORI M Ot V72.84 02/25/2015 KWASI KEITH MD Ot 272.4 02/25/2015 KWASI KEITH MD Ot 327.23 02/25/2015 KWASI KEITH MD Ot 414.00 02/25/2015 KWASI KEITH MD Ot 530.81 02/25/2015 KWASI KEITH MD Ot 786.50 03/05/2015 FRANCHESKA WILKINS APRN Ot 327.23 OBSTRUCTIVE SLEEP APNEA (ADULT) (PEDIATR 03/20/2015 KWASI KEITH MD Ot 272.4 03/20/2015 KWASI KEITH MD Ot 401.9 03/20/2015 KWASI KEITH MD Ot 424.1 03/21/2015 FRANCHESKA WILKINS APRN Ot 327.23 03/21/2015 FRANCHESKA WILKINS APRN Ot 786.05 03/27/2015 KWASI KEITH MD Ot 272.4 03/27/2015 KWASI KEITH MD Ot 401.9 03/27/2015 KWASI KEITH MD Ot 424.1 03/27/2015 FRANCHESKA WILKINS APRN Ot 327.23 03/27/2015 FRANCHESKA WILKINS APRN Ot 786.05 05/14/2015 QUE SCOTT BARREL ROLLER Ot 789.00 05/22/2015 QUE SCOTT BARREL ROLLER Ot 789.00 11/26/2015 CLAIR NEWBY MD Ot E86.9 VOLUME DEPLETION, UNSPECIFIED 11/26/2015 CLAIR NEWBY MD Ot E87.6 HYPOKALEMIA 11/26/2015 CLAIR NEWBY MD Ot G89.4 CHRONIC PAIN SYNDROME 11/26/2015 CLAIR NEWBY MD Ot I10 ESSENTIAL (PRIMARY) HYPERTENSION 11/26/2015 CLAIR NEWBY MD Ot K52.9 NONINFECTIVE GASTROENTERITIS AND COLITIS 11/26/2015 CLAIR NEWBY MD Ot Z23 ENCOUNTER FOR IMMUNIZATION 08/25/2016 MARTHA DAY Ot S92.355A NONDISP FX OF FIFTH METATARSAL BONE, LEF 08/25/2016 MARTHA DAY L Ot S99.922A UNSPECIFIED INJURY OF LEFT FOOT, INITIAL 08/25/2016 [place] JENNIFERMARTHA Ot X58.XXXA EXPOSURE TO OTHER SPECIFIED FACTORS, INI 08/25/2016 [place] RODRIGUEZMARTHA Ot Y92.[address] IN [place] NON-INSTITUT (PRIVATE 08/25/2016 [place] JENNIFERMARTHA Ot Y99.8 OTHER EXTERNAL CAUSE STATUS 08/27/2016 [place] RODRIGUEZ MARTHA Yoel Ot S92.355A NONDISP FX OF FIFTH METATARSAL BONE, LEF 08/27/2016 [place] RODRIGUEZ MARTHA Yoel Ot S99.922A UNSPECIFIED INJURY OF LEFT FOOT, INITIAL 08/27/2016 [place] RODRIGUEZMARTHA Ot X58.XXXA EXPOSURE TO OTHER SPECIFIED FACTORS, INI 08/27/2016 YN RODRIGUEZ MARTHA Yoel Ot Y92.[address] IN [place] NON-INSTITUT (PRIVATE 08/27/2016 [place] RODRIGUEZ MARTHA Yoel Ot Y99.8 OTHER EXTERNAL CAUSE STATUS 08/28/2016 KWASI KEITH MD Ot 272.4 HYPERLIPIDEMIA NEC/NOS 08/28/2016 KWASI KEITH MD Ot 401.9 HYPERTENSION NOS 08/28/2016 KWASI KEITH MD Ot 424.1 AORTIC VALVE DISORDER 08/28/2016 QUE SCOTT BARREL ROLLER Ot 789.00 ABDOMINAL PAIN, UNSPECIFIED SITE 09/30/2016 MAURIZIO GRIGGS FACC, KRISTIAN FACP CCDS Ot E78.4 OTHER HYPERLIPIDEMIA 09/30/2016 MAURIZIO GRIGGS FACC, ALI FACP CCDS Ot G47.33 OBSTRUCTIVE SLEEP APNEA (ADULT) (PEDIATR 09/30/2016 MAURIZIO GRIGGS FACC, ALI FACP CCDS Ot I10 ESSENTIAL (PRIMARY) HYPERTENSION 09/30/2016 MAURIZIO GRIGGS FACC, KRISTIAN FACP CCDS Ot I35.0 NONRHEUMATIC AORTIC (VALVE) STENOSIS 09/30/2016 MAURIZIO GRIGGS FACC, KRISTIAN FACP CCDS Ot I70.213 ATHSCL [place] ARTERIES OF EXTRM W INTRMT 09/30/2016 MAURIZIO GRIGGS FACC, KRISTIAN FACP CCDS Ot R00.2 PALPITATIONS 09/30/2016 MAURIZIO GRIGGS FACC, KRISTIAN FACP CCDS Ot R06.02 SHORTNESS OF BREATH 09/30/2016 MAURIZIO MD FACC, ALI FACP CCDS Ot E78.4 OTHER HYPERLIPIDEMIA 09/30/2016 MAURIZIO GRIGGS FACC, ALI FACP CCDS Ot G47.33 OBSTRUCTIVE SLEEP APNEA (ADULT) (PEDIATR 09/30/2016 MAURIZIO GRIGGS FACC, ALI FACP CCDS Ot I10 ESSENTIAL (PRIMARY) HYPERTENSION 09/30/2016 MAURIZIO GRIGGS FACC, ALI FACP CCDS Ot I35.0 NONRHEUMATIC AORTIC (VALVE) STENOSIS 09/30/2016 MAURIZIO GRIGGS FACC, ALI FACP CCDS Ot I70.213 ATHSCL [place] ARTERIES OF EXTRM W INTRMT 09/30/2016 MAURIZIO GRIGGS FACC, ALI FACP CCDS Ot R00.2 PALPITATIONS 09/30/2016 MAURIZIO JONESC, ALI FACP CCDS Ot R06.02 SHORTNESS OF BREATH 09/30/2016 MAURIZIO GRIGGS FACC, ALI FACP CCDS Ot E78.4 OTHER HYPERLIPIDEMIA 09/30/2016 MAURIZIO JONESC, ALI FACP CCDS Ot G47.33 OBSTRUCTIVE SLEEP APNEA (ADULT) (PEDIATR 09/30/2016 MAURIZOI JONESC, ALI FACP CCDS Ot I10 ESSENTIAL (PRIMARY) HYPERTENSION 09/30/2016 MAURIZIO JONESC, ALI FACP CCDS Ot I35.0 NONRHEUMATIC AORTIC (VALVE) STENOSIS 09/30/2016 MAURIZIO JONESC, ALI FACP CCDS Ot I70.213 ATHSCL [place] ARTERIES OF EXTRM W INTRMT 09/30/2016 MAURIZIO GRIGGS FACC, ALI FACP CCDS Ot R00.2 PALPITATIONS 09/30/2016 MAURIZIO JONESC, ALI FACP CCDS Ot R06.02 SHORTNESS OF BREATH 10/05/2016 MAURIZIO JONESC, ALI FACP CCDS Ot E78.4 OTHER HYPERLIPIDEMIA 10/05/2016 MAURIZIO GRIGGS FACC, ALI FACP CCDS Ot G47.33 OBSTRUCTIVE SLEEP APNEA (ADULT) (PEDIATR 10/05/2016 MAURIZIO JONESC, ALI FACP CCDS Ot I10 ESSENTIAL (PRIMARY) HYPERTENSION 10/05/2016 MAURIZIO JONESC, ALI FACP CCDS Ot I35.0 NONRHEUMATIC AORTIC (VALVE) STENOSIS 10/05/2016 MAURIZIO GRIGGS FACC, ALI FACP CCDS Ot I70.213 ATHSCL [place] ARTERIES OF EXTRM W INTRMT 10/05/2016 MAURIZIO GRIGGS FACC, ALI FACP CCDS Ot R00.2 PALPITATIONS 10/05/2016 MAURIZIO GRIGGS FACC, ALI FACP CCDS Ot R06.02 SHORTNESS OF BREATH 10/14/2016 MAURIZIO GRIGGS FACC, ALI FACP CCDS Ot R06.02 SHORTNESS OF BREATH 10/20/2016 MAURIZIO GRIGGS FACC, ALI FACP CCDS Ot E78.4 OTHER HYPERLIPIDEMIA 10/20/2016 MAURIZIO GRIGGS FACC, ALI FACP CCDS Ot G47.33 OBSTRUCTIVE SLEEP APNEA (ADULT) (PEDIATR 10/20/2016 MAURIZIO GRIGGS FACC, ALI FACP CCDS Ot I10 ESSENTIAL (PRIMARY) HYPERTENSION 10/20/2016 MAURIZIO GRIGGS FACC, ALI FACP CCDS Ot I35.0 NONRHEUMATIC AORTIC (VALVE) STENOSIS 10/20/2016 MAURIZIO GRIGGS FACC, ALI FACP CCDS Ot I70.213 ATHSCL [place] ARTERIES OF EXTRM W INTRMT 10/20/2016 MAURIZIO JONESC, ALI FACP CCDS Ot R00.2 PALPITATIONS 10/20/2016 MAURIZIO JONESC, ALI FACP CCDS Ot R06.02 SHORTNESS OF BREATH 10/28/2016 MAURIZIO JONESC, ALI FACP CCDS Ot E78.4 OTHER HYPERLIPIDEMIA 10/28/2016 MAURIZIO JONESC, ALI FACP CCDS Ot G47.33 OBSTRUCTIVE SLEEP APNEA (ADULT) (PEDIATR 10/28/2016 MAURIZIO GRIGGS FACC, ALI FACP CCDS Ot I10 ESSENTIAL (PRIMARY) HYPERTENSION 10/28/2016 MAURIZIO GRIGGS FACC, ALI FACP CCDS Ot I35.0 NONRHEUMATIC AORTIC (VALVE) STENOSIS 10/28/2016 MAURIZIO JONESC, ALI FACP CCDS Ot I70.213 ATHSCL [place] ARTERIES OF EXTRM W INTRMT 10/28/2016 MAURIZIO JONESC, ALI FACP CCDS Ot R00.2 PALPITATIONS 10/28/2016 MAURIZIO JONESC, ALI FACP CCDS Ot R06.02 SHORTNESS OF BREATH 11/03/2016 MAURIZIO GRIGGS FACC, ALI FACP CCDS Ot E78.4 OTHER HYPERLIPIDEMIA 11/03/2016 MAURIZIO GRIGGS FACC, ALI FACP CCDS Ot G47.33 OBSTRUCTIVE SLEEP APNEA (ADULT) (PEDIATR 11/03/2016 MAURIZIO JONESC, ALI FACP CCDS Ot I10 ESSENTIAL (PRIMARY) HYPERTENSION 11/03/2016 MAURIZIO GRIGGS FACJanie, ALI FACP CCDS Ot I35.0 NONRHEUMATIC AORTIC (VALVE) STENOSIS 11/03/2016 MAURIZIO GRIGGS FACC, ALI FACP CCDS Ot R00.2 PALPITATIONS 11/03/2016 MAURIZIO GRIGGS FACC, ALI FACP CCDS Ot R06.02 SHORTNESS OF BREATH 11/11/2016 MAURIZIO GRIGGS FACC, ALI FACP CCDS Ot E78.4 OTHER HYPERLIPIDEMIA 11/11/2016 MAURIZIO GRIGGS FACC, ALI FACP CCDS Ot G47.33 OBSTRUCTIVE SLEEP APNEA (ADULT) (PEDIATR 11/11/2016 MAURIZIO GRIGGS FACC, ALI FACP CCDS Ot I10 ESSENTIAL (PRIMARY) HYPERTENSION 11/11/2016 MAURIZIO GRIGGS FACJanie, ALI FACP CCDS Ot I35.0 NONRHEUMATIC AORTIC (VALVE) STENOSIS 11/11/2016 MAURIZIO GRIGGS FACC, ALI FACP CCDS Ot R00.2 PALPITATIONS 11/11/2016 MAURIZIO GRIGGS FACC, ALI FACP CCDS Ot R06.02 SHORTNESS OF BREATH 02/01/2017 ALEJO HIRSCH [employer] WORKER Ot Z12.31 ENCNTR SCREEN MAMMOGRAM FOR MALIGNANT NE 01/20/2018 KWASI KEITH MD Ot 272.4 HYPERLIPIDEMIA NEC/NOS 01/20/2018 KWASI KEITH MD Ot 401.9 HYPERTENSION NOS 01/20/2018 KWASI KEITH MD Ot 424.1 AORTIC VALVE DISORDER 01/20/2018 QUE SCOTT BARREL ROLLER Ot 789.00 ABDOMINAL PAIN, UNSPECIFIED SITE 01/20/2018 MAURIZIO GRIGGS FACC, ALI FACP CCDS Ot E78.4 OTHER HYPERLIPIDEMIA 01/20/2018 MAURIZIO GRIGGS FACC, ALI FACP CCDS Ot G47.33 OBSTRUCTIVE SLEEP APNEA (ADULT) (PEDIATR 01/20/2018 MAURIZIO GRIGGS FACC, ALI FACP CCDS Ot I10 ESSENTIAL (PRIMARY) HYPERTENSION 01/20/2018 MAURIZIO GRIGGS FACC, ALI FACP CCDS Ot I35.0 NONRHEUMATIC AORTIC (VALVE) STENOSIS 01/20/2018 MAURIZIO GRIGGS FACC, ALI FACP CCDS Ot I70.213 ATHSCL [place] ARTERIES OF EXTRM W INTRMT 01/20/2018 MAURIZIO GRIGGS FACC, ALI FACP CCDS Ot R00.2 PALPITATIONS 01/20/2018 MAURIZIO GRIGGS FACC, ALI FACP CCDS Ot R06.02 SHORTNESS OF BREATH 01/20/2018 MAURIZIO GRIGGS FACC, ALI FACP CCDS Ot E78.4 OTHER HYPERLIPIDEMIA 01/20/2018 MAURIZIO GRIGGS FACC, ALI FACP CCDS Ot G47.33 OBSTRUCTIVE SLEEP APNEA (ADULT) (PEDIATR 01/20/2018 MAURIZIO GRIGGS FACC, ALI FACP CCDS Ot I10 ESSENTIAL (PRIMARY) HYPERTENSION 01/20/2018 MAURIZIO GRIGGS FACC, ALI FACP CCDS Ot I35.0 NONRHEUMATIC AORTIC (VALVE) STENOSIS 01/20/2018 MAURIZIO GRIGGS FACC, ALI FACP CCDS Ot R00.2 PALPITATIONS 01/20/2018 MAURIZIO GRIGGS FACJanie, ALI FACP CCDS Ot R06.02 SHORTNESS OF BREATH 01/20/2018 ALEJO HIRSCH COMM[employer] WORKER Ot Z12.31 ENCNTR SCREEN MAMMOGRAM FOR MALIGNANT NE 01/20/2018 QUE SCOTT BARREL ROLLER Ot Z12.31 ENCNTR SCREEN MAMMOGRAM FOR MALIGNANT NE 02/17/2018 Newman, Natalie-Claire W 724.2 LUMBAGO 02/17/2018 Newman, Natalie-Claire W 782.0 DISTURBANCE OF SKIN SENSATION 02/17/2018 Newman, Natalie-Claire W M54.5 LOW BACK PAIN 02/17/2018 Newman, Natalie-Claire W R20.2 PARESTHESIA OF SKIN 02/17/2018 Newman, Natalie-Claire W 724.2 LUMBAGO 02/17/2018 Newman, Natalie-Claire W 782.0 DISTURBANCE OF SKIN SENSATION 02/17/2018 Newman, Natalie-Claire W M54.5 LOW BACK PAIN 02/17/2018 Newman, Natalie-Claire W R20.2 PARESTHESIA OF SKIN 04/02/2018 Zak Cazraes R21 RASH AND OTHER NONSPECIFIC SKIN ERUPTION 05/13/2018 MAURIZIO GRIGGS FACC, ALI FACP CCDS Ot R00.2 PALPITATIONS 05/17/2018 KWASI KEITH MD Ot 272.4 HYPERLIPIDEMIA NEC/NOS 05/17/2018 KWASI KEITH MD Ot 401.9 HYPERTENSION NOS 05/17/2018 SAGAR GRIGGS, KWASI Sepulveda Ot 424.1 AORTIC VALVE DISORDER 05/17/2018 QUE SCOTT BARREL ROLLER Ot 789.00 ABDOMINAL PAIN, UNSPECIFIED SITE 05/17/2018 MAURIZIO GRIGGS FACC, ALI FACP CCDS Ot E78.4 OTHER HYPERLIPIDEMIA 05/17/2018 MAURIZIO GRIGGS FACC, ALI FACP CCDS Ot G47.33 OBSTRUCTIVE SLEEP APNEA (ADULT) (PEDIATR 05/17/2018 MAURIZIO GRIGGS FACC, ALI FACP CCDS Ot I10 ESSENTIAL (PRIMARY) HYPERTENSION 05/17/2018 MAURIZIO GRIGGS FACC, ALI FACP CCDS Ot I35.0 NONRHEUMATIC AORTIC (VALVE) STENOSIS 05/17/2018 MAURIZIO GRIGGS FACC, ALI FACP CCDS Ot I70.213 ATHSCL [place] ARTERIES OF EXTRM W INTRMT 05/17/2018 MAURIZIO GRIGGS FACC, ALI FACP CCDS Ot R00.2 PALPITATIONS 05/17/2018 MAURIZIO GRIGGS FACC, ALI FACP CCDS Ot R06.02 SHORTNESS OF BREATH 05/17/2018 MAURIZIO GRIGGS FACC, ALI FACP CCDS Ot E78.4 OTHER HYPERLIPIDEMIA 05/17/2018 MAURIZIO GRIGGS FACC, ALI FACP CCDS Ot G47.33 OBSTRUCTIVE SLEEP APNEA (ADULT) (PEDIATR 05/17/2018 MAURIZIO GRIGGS FACC, ALI FACP CCDS Ot I10 ESSENTIAL (PRIMARY) HYPERTENSION 05/17/2018 MAURIZIO GRIGGS FACC, ALI FACP CCDS Ot I35.0 NONRHEUMATIC AORTIC (VALVE) STENOSIS 05/17/2018 MAURIZIO GRIGGS FACC, ALI FACP CCDS Ot R00.2 PALPITATIONS 05/17/2018 MAURIZIO GRIGGS FACC, ALI FACP CCDS Ot R06.02 SHORTNESS OF BREATH 05/17/2018 ALEJO HIRSCH APRN Ot Z12.31 ENCNTR SCREEN MAMMOGRAM FOR MALIGNANT NE 05/17/2018 MAURIZIO GRIGGS FACC, ALI FACP CCDS Ot R00.2 PALPITATIONS 06/07/2018 MAURIZIO GRIGGS FACC, ALI FACP CCDS Ot G47.33 OBSTRUCTIVE SLEEP APNEA (ADULT) (PEDIATR 06/07/2018 MAURIZIO GRIGGS FACC, ALI FACP CCDS Ot 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 06/07/2018 MAURIZIO JONESC, ALI FACP CCDS Ot I35.0 NONRHEUMATIC AORTIC (VALVE) STENOSIS 06/07/2018 MAURIZIO GRIGGS FACC, ALI FACP CCDS Ot R00.2 PALPITATIONS 06/07/2018 MAURIZIO GRIGGS FACC, ALI FACP CCDS Ot R06.02 SHORTNESS OF BREATH 06/16/2018 MAURIZIO GRIGGS FACC, ALI FACP CCDS Ot G47.33 OBSTRUCTIVE SLEEP APNEA (ADULT) (PEDIATR 06/16/2018 MAURIZIO GRIGGS FACC, ALI FACP CCDS Ot 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 06/16/2018 MAUIRZIO GRIGGS FACC, ALI FACP CCDS Ot I35.0 NONRHEUMATIC AORTIC (VALVE) STENOSIS 06/16/2018 MAURIZIO GRIGGS FACJanie, ALI FACP CCDS Ot R00.2 PALPITATIONS 06/16/2018 MAURIZIO GRIGGS FACJanie, ALI FACP CCDS Ot R06.02 SHORTNESS OF BREATH Procedures There is no data. Results Test Result Range Other Culture - 04/02/18 17:05 PRELIM CULTURE RESULTS No Growth 24 hours FINAL CULTURE RESULTS No Growth 48 hours Encounters ACCT No. Visit Date/Time Discharge Status Pt. Type Provider Facility Loc./Unit Complaint [id number] 06/10/2018 07:20:00 06/10/2018 23:59:59 CLS Preadmit MAURIZIO GRIGGS FACC ALI FACP CCDS [facility] CARD PALPITATION,LILI ,SOB, [id number] 05/17/2018 11:40:00 05/17/2018 23:59:59 CLS Outpatient MAURIZIO GRIGGS FACC ALI FACP CCDS [facility] CARD ,PULMONARY HTN,PALPITATION,LILI,SOB [id number] 01/20/2018 10:51:00 01/20/2018 23:59:59 CLS Preadmit QUE SCOTT [facility] RAD SCREENING [id number] 01/05/2017 11:05:00 01/05/2017 23:59:59 CLS Outpatient ALEJO HIRSCH APRN [facility] RAD Z12.31 [id number] 10/13/2016 08:15:00 10/13/2016 23:59:59 CLS Outpatient KRISTIAN STEVEN MD, FACC, FACP CCDS [facility] CARD SOB, [id number] 09/29/2016 11:13:00 09/29/2016 23:59:59 CLS Outpatient KRISTIAN STEVEN MD, FACC, FACP CCDS [facility] RAD SOB, [id number] 08/25/2016 19:57:00 08/25/2016 22:00:00 DIS Emergency [place] RODRIGUEZ, MARTHA L [facility] ER L FOOT INJ [id number] 11/24/2015 19:14:00 11/26/2015 11:05:00 DIS Inpatient CLAIR NEWBY MD [facility] 4TH INTRACTABLE DIARRHEA VOLUME DEPLETION ILEUS FEVER [id number] 04/22/2015 09:06:00 04/22/2015 23:59:59 CLS Outpatient QUE SCOTT BARREL ROLLER [facility] RAD ABD PAIN [id number] 03/04/2015 19:52:00 03/05/2015 07:10:00 DIS Outpatient FRANCHESKA WILKINS APRN [facility] SLEEP SNORING CHOKING GASPING [id number] 2015 12:40:00 2015 23:59:59 CLS Outpatient KWASI KEITH MD [facility] CARD AORTIC VALVE STENOSIS [id number] 02/25/2015 12:33:00 02/25/2015 23:59:59 CLS Outpatient FRANCHESKA WILKINS APRN [facility] RT [id number] 09/03/2014 06:27:00 09/03/2014 10:35:00 DIS Outpatient KORI ELDER MD [facility] SDC [id number] 08/30/2014 05:48:00 08/30/2014 23:59:59 CLS Outpatient KORI ELDER MD [facility] PREOP [id number] 08/27/2014 07:16:00 08/27/2014 23:59:59 CLS Outpatient KWASI KEITH MD [facility] CARD [id number] 01/19/2014 08:40:00 02/09/2014 10:57:00 DIS Outpatient PAULETTE ABREU DO [facility] REHAB [id number] 02/07/2014 09:34:00 02/07/2014 23:59:59 CLS Outpatient CHAZ CARDONA MD [facility] CARD [id number] 10/11/2013 12:59:00 10/11/2013 23:59:59 CLS Outpatient QUE SCOTT [facility] RAD [id number] 06/27/2013 13:53:00 06/27/2013 23:59:59 CLS Outpatient SONYA PATEL DO [facility] RAD [id number] 05/22/2013 09:29:00 05/22/2013 23:59:59 CLS Outpatient SONYA PATEL DO [facility] RAD [id number] 04/13/2013 21:02:00 04/14/2013 06:30:00 DIS Outpatient CLAIR NEWBY MD [facility] SLEEP [id number] 03/23/2013 21:17:00 03/24/2013 06:45:00 DIS Outpatient CLAIR NEWBY MD [facility] SLEEP [id number] 07/05/2018 06:51:00 ACT Outpatient MAURIZIO GRIGGS FACC, KRISTIAN ELDRIDGE CCDS [facility] CATH PALPITATIONS [id number] 10/17/2014 16:33:00 Document Registration [id number] 08/27/2014 07:20:00 Document Registration [id number] 08/27/2014 07:20:00 Document Registration [id number] 08/27/2014 07:20:00 Document Registration [id number] 08/27/2014 07:20:00 Document Registration [id number] 06/22/2012 05:29:00 Document Registration [id number] 06/21/2012 10:08:00 Document Registration [id number] 06/21/2012 07:42:00 Document Registration [id number] 06/07/2012 07:50:00 Document Registration [id number] 02/01/2012 08:36:00 Document Registration [id number] 12/23/2011 05:49:00 Document Registration [id number] 12/16/2011 09:23:00 Document Registration [id number] 10/21/2011 10:21:00 Document Registration [id number] 10/15/2011 10:19:00 Document Registration [id number] 09/23/2011 12:53:00 Document Registration [id number] 08/19/2011 08:39:00 Document Registration [id number] 06/24/2011 11:01:00 Document Registration [id number] 05/20/2011 09:41:00 Document Registration [id number] 08/05/2010 11:25:00 Document Registration [id number] 05/21/2010 08:40:00 Document Registration [id number] 03/20/2010 08:35:00 Document Registration [id number] 03/11/2010 08:29:00 Document Registration [id number] 03/10/2010 08:43:00 Document Registration [id number] 11/13/2009 11:19:00 Document Registration [id number] 09/05/2009 14:10:00 Document Registration [id number] 09/04/2009 09:18:00 Document Registration [id number] 07/26/2009 10:54:00 Document Registration [id number] 05/22/2009 08:30:00 Document Registration [id number] 03/21/2009 15:30:00 Document Registration [id number] 04/07/2018 09:51:00 04/07/2018 23:59:00 DIS Outpatient Miriam Newman [id number] 04/02/2018 16:11:00 04/02/2018 18:34:00 [id number]/17/2018 11:34:00 02/17/2018 23:59:00 DIS Outpatient Miriam Newman [id number] 04/02/2018 18:10:54 Document Registration [id number] 07/09/2017 23:09:50 07/09/2017 23:59:59 CLS Outpatient Clair Newby
--- NOTE | 2018-07-05 09:40 | OPERATIVE REPORT ---
DATE OF SERVICE: 07/05/2018 PREOPERATIVE DIAGNOSES: Palpitations, near syncope. POSTOPERATIVE DIAGNOSES: Palpitations, near syncope. PROCEDURE: Implantable loop recorder implantation. INDICATIONS: The patient is a 78-year-old lady, who has a history of palpitations and near syncope. Implantable loop recorder implantation was carried out today after having obtained an informed consent. DESCRIPTION OF THE PROCEDURE: [facility]. The left prepectoral area was prepared and draped in the usual sterile fashion. 1% Lidocaine was used as local anesthesia. The tools provided with the [employer] Reveal LINQ implantable loop recorder were used to make a subcutaneous pocket just anterior to the fourth intercostal space into which the device was placed and the edges were closed using Dermabond and Steri-Strips. She tolerated the procedure well. The serial number of the device is [id number]. Job ID: [id number] DocumentID: [id number] Dictated Date: 07/05/2018 08:24:16 Crew Lead Date: 07/05/2018 09:40:03 Dictated By: KRISTIAN STEVEN MD, MA, FACP, FACC,
== END ==
LOC: CATH 06:51
PROVIDERS: ATTEND Internal Medicine Cardiovascular Disease
DX: R00.2 Palpitations (principal); R55 Syncope and collapse; I25.10 Atherosclerotic heart disease of native coronary artery without angina pectoris; I11.0 Hypertensive heart disease with heart failure; I50.9 Heart failure, unspecified; E78.5 Hyperlipidemia, unspecified; I27.20 Pulmonary hypertension, unspecified; I08.3 Combined rheumatic disorders of mitral, aortic and tricuspid valves; G47.33 Obstructive sleep apnea (adult) (pediatric); Z79.899 Other long term (current) drug therapy
CPT/HCPCS: 33282

== ENCOUNTER 2018-07-08 06:48 | Emergency (ER) | payer MEDICARE ==
[~2018-07-08] VITALS: Ht 165.1 cm; Wt 63.0 kg
[~2018-07-08 06:48] MED LIST changes: -LIDOCAINE 1% INJ 20 ML 20 ML VIAL ONE
[2018-07-08] MEDS ORDERED: LIDOCAINE 1% INJ 20 ML 20 ML VIAL ONE (07:38)
--- NOTE | 2018-07-08 08:09 | ED Fall/Injury ---
General Chief Complaint: Laceration Stated Complaint: FALL AT HOME Nursing Triage Note: PATIENT AMBULATORY TO ROOM 7 WITH COMPLAINT OF LACERATION TO HER RIGHT FOREHEAD. PATIENT STATES AROUND 05:00 AM THIS MORNING SHE TRIPPED OVER A CHAIR IN HER LIVING ROOM AND HIT HER HEAD ON THE SIDE OF HER BAY WINDOW. SHE DENIES ANY LOSS OF CONSCIOUSNESS. SHE IS NOT ON BLOOD THINNERS. SHE IS ALSO COMPLAINING OF ABRASIONS TO THE RIGHT SHOULDER. PATIENT HAS AN APPROXIMATE 2 CM LACERATION TO THE RIGHT FOREHEAD. THERE IS NO BLEEDING PRESENT AT THIS TIME. SHE TOOK A HYDROCODONE AT 05:15 AM. 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 She lost her balance and fell forward and struck her head on the window crank of her day window. This caused a laceration to the forehead at the lateral aspect of the brow. It is horizontally oriented and estimated to be 2 cm in length. There was no loss of consciousness. She looked at it in the mirror and it was clear to her that this was going to need stitches. She had to wait for transportation to be arranged. Occurred: this morning Injuries/Pain Location: face Context: lost balance, tripped Associated Symptoms (Fall): Denies Symptoms Allergies and Home Medications Allergies Coded Allergies: penicillin G (Unverified Allergy, Mild, HIVES...REC ANCEF WITHOUT PROBLEMS , 06/22/12) Iodinated Contrast- Oral and IV Dye (Verified Allergy, Unknown, 06/22/12) Uncoded Allergies: LIQUID TAPE (Allergy, Mild, 07/08/18) ITCHING Home Medications Alprazolam 1 Mg Tablet, 1 MG PO Q8H PRN for ANXIETY, (Reported) Atorvastatin Calcium 40 Mg Tablet, 40 MG PO HS, (Reported) Bupropion HCl 300 Mg Tab.er.24h, 300 MG PO DAILY, (Reported) Ciprofloxacin HCl 500 Mg Tablet, 500 MG PO BID Prescribed by: CLAIR ROMEO on 11/26/15 0857 Fluticasone Propionate 9.9 Ml [place].susp, 2 SPRAYS NSEACH BID, (Reported) Gabapentin 100 Mg Cap, 100 MG PO TID PRN for PAIN, (Reported) Hydrocodone/Acetaminophen 1 Each Tablet, 1 TAB PO EVERY 4-6 HOURS PRN for PAIN, (Reported) Isosorbide Mononitrate 30 Mg Tab.er.24h, 30 MG PO DAILY, (Reported) Lactobacillus Acidophilus 1 Each Capsule, 1 EACH PO TID Prescribed by: CLAIR ROMEO on 11/26/15 0857 Lisinopril 10 Mg Tablet, 10 MG PO DAILY, (Reported) Metoprolol Tartrate 25 Mg Tablet, 25 MG PO BID, (Reported) Omeprazole 20 Mg Capsule.dr, 20 MG PO BID, (Reported) Patient Home Medication List Home Medication List Reviewed: Yes Review of Systems Review of Systems Constitutional: see HPI Eyes: No Symptoms Reported Ears, Nose, Mouth, Throat: no symptoms reported Respiratory: no symptoms reported Cardiovascular: no symptoms reported Gastrointestinal: no symptoms reported Genitourinary: no symptoms reported Musculoskeletal: no symptoms reported Skin: no symptoms reported Psychiatric/Neurological: No Symptoms Reported Past Fqjlqgp-Joiaba-Srwzsi Hx Patient Social History Alcohol Use: Denies Use Recreational Drug Use: No Smoking Status: Never a Smoker Type Used: Cigarettes 2nd Hand Smoke Exposure: No Recent Foreign Travel: No Contact w/Someone Who Travel: No Recent Infectious Disease Expo: No Recent Hopitalizations: No Physical Abuse: No Sexual Abuse: No Mistreated: No Immunizations Up To Date Tetanus Booster (TDap): More than 5yrs PED Vaccines UTD: Yes Date of Pneumonia Vaccine: Jun 22, 2017 Date of Influenza Vaccine: May 20, 2018 Seasonal Allergies Seasonal Allergies: No Past Medical History Surgeries: Yes Abdominal, Bowel Surgery, Gallbladder, Hysterectomy, Joint Replacement, Orthopedic, Tonsillectomy Respiratory: No Cardiac: Yes Hypertension, Palpitations Neurological: No Reproductive Disorders: No AGER TENDER History: Hysterectomy Sexually Transmitted Disease: No HIV/AIDS: No Genitourinary: No Arthritis Endocrine: No HEENT: No Cancer: No Psychosocial: No Anxiety, Depression Integumentary: No Blood Disorders: No Adverse Reaction/Blood Tranf: No Family Medical History Cancer of mouth 19 FATHER Cardiovascular disease 19 MOTHER G8 BROTHER Colon cancer 19 MOTHER Diabetes mellitus G8 BROTHER Hypercholesterolemia 19 MOTHER Hypertension 19 MOTHER G8 BROTHER Myocardial infarction G8 BROTHER No Pertinent Family Hx, Heart Disease, Cancer, CAD Over 55 Years Old, Hypertension Physical Exam Vital Signs Vital Signs - First Documented 07/08/18 06:53 Temp 98.0 Pulse 76 B/P (MAP) 138/77 (97) O2 Delivery Room Air Capillary Refill : Less Than 3 Seconds Height, Weight, BMI Height: 5'5.00" Weight: 139lbs. 0.0oz. [id number]; 22.4 BMI Method:Stated General Appearance: WD/WN HEENT: normal ENT inspection Neck: non-tender, full range of motion, supple, normal inspection Cardiovascular: regular rate, rhythm, systolic murmur (grade 2 systolic murmur heard in the right and left second intercostal spaces) Respiratory: chest non-tender, lungs clear, normal breath sounds, no respiratory distress, no accessory muscle use Extremities: normal range of motion, non-tender, normal inspection, no pedal edema, no calf tenderness, normal capillary refill, pelvis stable Neurologic/Psychiatric: distribution tech II-XII nml as tested, no motor/sensory deficits, alert, normal mood/affect, oriented x 3 Skin: normal color, warm/dry Procedures/Interventions Wound Location: Face Wound Length (cm): 2 Wound's Depth, Shape: superficial Wound Explored: clean Irrigated w/ Saline (ccs): 20 Anesthesia: 1% Lidocaine Volume Anesthetic (ccs): 3 Suture: Prolene Suture Size: 5-0 Number of Sutures: 3 Sterile Dressing Applied?: No Progress/Results/Core Measures Results/Orders My Orders Orders - KHUSHI FRIED MD Lidocaine 1% Inj 20 Ml (Xylocaine 1% Inj (07/08/18 07:38) Dipht,Pertuss(Acell),Tet Adult (Boostrix (07/08/18 08:15) Medications Given in ED Current Medications Medications Dose Ordered Sig/Mayte Route Start Time Stop Time Status Last Admin Dose Admin Lidocaine HCl 20 ml STK-MED ONCE .ROUTE 07/08/18 07:38 07/08/18 07:40 DC 07/08/18 07:57 4 ML Vital Signs/I&O 07/08/18 06:53 Temp 98.0 Pulse 76 B/P (MAP) 138/77 (97) O2 Delivery Room Air Blood Pressure Mean: 97 Departure Impression Primary Impression: laceration right lateral brow Disposition: 01 HOME, SELF-CARE Condition: Stable/Unchanged Departure-Patient Inst. Decision time for Depature: 08:13 Referrals: TEJINDER IGNACIO MD (PCP/Family) Primary Care Physician Patient Instructions: Laceration Repair With Stitches (DC) Add. Discharge Instructions: All discharge instructions reviewed with patient and/or family. Voiced understanding. Keep wound clean and dry. You may shower including face and hair tomorrow. Expect a bit of a black eye If blurred vision or difficulty walking occurs return to emergency room. Return in one week for suture removal KHUSHI FRIED MD Jul 08, 2018 08:09
[2018-07-08] MEDS ORDERED: TETANUS,DIPTH,PERTUSS P/F (BOOSTRIX) 0.5 ML VIAL IM ONE (08:15)
--- OUTSIDE RECORDS SUMMARY | 2018-07-08 08:28 | XMS REPORT | Continuity of Care Document ---
Author Author [facility] Organization [facility] Address Unknown Phone Unavailable Allergies Active Description Code Type Severity Reaction Onset Reported/Identified Relationship to Patient Clinical Status Yes PENICILLIN G BENZATHINE MODERATE DERMATOLOGICAL - HIV Yes penicillin G [id number] Drug Allergy Mild HIVES...REC ANC 06/22/2012 Yes Iodinated Contrast Media - IV Dye [id number] Drug Allergy Unknown N/A 06/22 Yes Iodinated Contrast Media - Oral and [id number] Drug Allergy Unknown N/A Yes Iodinated Contrast- Oral and IV Dye [id number] Drug Allergy Unknown N/A Medications Medication Packaging [...] KORI Boogie Ot 211.3 09/03/2014 JAEL GRIGGS, KOIR Boogie Ot 401.9 09/03/2014 JAEL GRIGGS, KORI [...] WILKINS APRN Ot 786.05 05/14/2015 [facility] LEATHER ETCHER Ot 789.00 05/22/2015 [facility] LEATHER ETCHER Ot 789.00 11/26/2015 CLAIR NEWBY MD Ot [...] [place] RODRIGUEZMARTHA Ot Y92.[address] IN [facility] NON-INSTITUT (PRIVATE 08/25/2016 [place] JENNIFERMARTHA Ot Y99.8 OTHER EXTERNAL CAUSE STATUS 08/27/2016 [place] RODRIGUE[place] MARTHA Yoel Ot S92.355A NONDISP FX OF FIFTH METATARSAL BONE, LEF 08/27/2016 [place] RODRIGUE[place] MARTHA Yoel Ot S99.922A UNSPECIFIED INJURY OF LEFT FOOT, INITIAL 08/27/2016 [place] RODRIGUEZMARTHA Ot X58.XXXA EXPOSURE TO OTHER SPECIFIED FACTORS, INI 08/27/2016 [place] RODRIGUEZ MARTHA Yoel Ot Y92.[address] IN [facility] NON-INSTITUT (PRIVATE 08/27/2016 [place] RODRIGUE[place] MARTHA Yoel Ot Y99.8 OTHER EXTERNAL CAUSE STATUS 08/28/2016 KWASI KEITH MD Ot 272.4 HYPERLIPIDEMIA NEC/NOS 08/28/2016 KWASI KEITH MD Ot 401.9 HYPERTENSION NOS 08/28/2016 KWASI KEITH MD Ot 424.1 AORTIC VALVE DISORDER 08/28/2016 [place] LEATHER ETCHER Ot 789.00 ABDOMINAL PAIN, UNSPECIFIED SITE 09/30/2016 [...] FACC, KRISTIAN FACP CCDS Ot 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 09/30/2016 MAURIZIO [...] FACC, ALI FACP CCDS Ot 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] FACC, ALI FACP CCDS Ot 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 10/05/2016 MAURIZIO [...] FACC, ALI FACP CCDS Ot 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 10/20/2016 MAURIZIO [...] JONESC, ALI FACP CCDS Ot 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 10/28/2016 MAURIZIO [...] I10 ESSENTIAL (PRIMARY) HYPERTENSION 11/11/2016 MAURIZIO GRIGGS FACJnaie, ALI FACP CCDS Ot I35.0 NONRHEUMATIC AORTIC (VALVE) STENOSIS 11/11/2016 MAURIZIO GRIGGS FACC, ALI FACP CCDS Ot R00.2 PALPITATIONS 11/11/2016 MAURIZIO GRIGGS FACC, ALI FACP CCDS Ot R06.02 SHORTNESS OF BREATH 02/01/2017 ALEJO HIRSCH AIR HAMMER STRIPPER Ot Z12.31 ENCNTR SCREEN MAMMOGRAM FOR MALIGNANT NE 01/20/2018 KWASI KEITH MD Ot 272.4 HYPERLIPIDEMIA NEC/NOS 01/20/2018 KWASI KEITH MD Ot 401.9 HYPERTENSION NOS 01/20/2018 KWASI KEITH MD Ot 424.1 AORTIC VALVE DISORDER 01/20/2018 [place] LEATHER ETCHER Ot 789.00 ABDOMINAL PAIN, UNSPECIFIED SITE 01/20/2018 [...] FACC, ALI FACP CCDS Ot 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 01/20/2018 MAURIZIO [...] R06.02 SHORTNESS OF BREATH 01/20/2018 ALEJO HIRSCH AIR HAMMER STRIPPER Ot Z12.31 ENCNTR SCREEN MAMMOGRAM FOR MALIGNANT NE 01/20/2018 [place] LEATHER ETCHER Ot Z12.31 ENCNTR SCREEN MAMMOGRAM FOR MALIGNANT [...] W R20.2 PARESTHESIA OF SKIN 04/02/2018 Zak Cazares R21 RASH AND OTHER NONSPECIFIC SKIN ERUPTION 05/13/2018 MAURIZIO GRIGGS FACC, ALI FACP CCDS Ot R00.2 PALPITATIONS 05/17/2018 KWASI KEITH MD Ot 272.4 HYPERLIPIDEMIA NEC/NOS 05/17/2018 KWASI KEITH MD Ot 401.9 HYPERTENSION NOS 05/17/2018 SAGAR GIRGGS, KWASI Sepulveda Ot 424.1 AORTIC VALVE DISORDER 05/17/2018 [place] LEATHER ETCHER Ot 789.00 ABDOMINAL PAIN, UNSPECIFIED SITE 05/17/2018 [...] FACC, ALI FACP CCDS Ot 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 05/17/2018 MAURIZIO [...] CCDS Ot R00.2 PALPITATIONS 06/07/2018 MAURIZIO GRIGGS FACJanie, ALI FACP CCDS Ot R06.02 SHORTNESS OF BREATH 06/16/2018 MAURIZIO GRIGGS FACC, ALI FACP CCDS Ot G47.33 OBSTRUCTIVE SLEEP APNEA (ADULT) (PEDIATR 06/16/2018 MAURIZIO JONESC, ALI FACP CCDS Ot 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 06/16/2018 MAURIZIO JONESC, ALI FACP CCDS Ot I35.0 NONRHEUMATIC AORTIC (VALVE) STENOSIS 06/16/2018 MAURIZIO GRIGGS FACC, ALI FACP CCDS Ot R00.2 PALPITATIONS 06/16/2018 MAURIZIO GRIGGS FACC, ALI FACP CCDS Ot R06.02 SHORTNESS OF BREATH 07/07/2018 KWASI KEITH MD Ot 272.4 HYPERLIPIDEMIA NEC/NOS 07/07/2018 KWASI KEITH MD Ot 401.9 HYPERTENSION NOS 07/07/2018 KWASI KEITH MD Ot 424.1 AORTIC VALVE DISORDER 07/07/2018 [place] LEATHER ETCHER Ot 789.00 ABDOMINAL PAIN, UNSPECIFIED SITE 07/07/2018 MAURIZIO GRIGGS FACC, ALI FACP CCDS Ot E78.4 OTHER HYPERLIPIDEMIA 07/07/2018 MAURIZIO GRIGGS FACC, ALI FACP CCDS Ot G47.33 OBSTRUCTIVE SLEEP APNEA (ADULT) (PEDIATR 07/07/2018 MAURIZIO GRIGGS FACC, ALI FACP CCDS Ot I10 ESSENTIAL (PRIMARY) HYPERTENSION 07/07/2018 MAURIZIO GRIGGS FACC, ALI FACP CCDS Ot I35.0 NONRHEUMATIC AORTIC (VALVE) STENOSIS 07/07/2018 MAURIZIO GRIGGS FACC, ALI FACP CCDS Ot 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 07/07/2018 MAURIZIO JONESC, ALI FACP CCDS Ot R00.2 PALPITATIONS 07/07/2018 MAURIZIO GRIGGS FACC, ALI FACP CCDS Ot R06.02 SHORTNESS OF BREATH 07/07/2018 MAURIZIO GRIGGS FACC, ALI FACP CCDS Ot E78.4 OTHER HYPERLIPIDEMIA 07/07/2018 MAURIZIO GRIGGS FACC, ALI FACP CCDS Ot G47.33 OBSTRUCTIVE SLEEP APNEA (ADULT) (PEDIATR 07/07/2018 MAURIZIO GRIGGS FACC, ALI FACP CCDS Ot I10 ESSENTIAL (PRIMARY) HYPERTENSION 07/07/2018 MAURIZIO GRIGGS FACJanie, ALI FACP CCDS Ot I35.0 NONRHEUMATIC AORTIC (VALVE) STENOSIS 07/07/2018 MAURIZIO GRIGGS FACC, ALI FACP CCDS Ot R00.2 PALPITATIONS 07/07/2018 MAURIZIO GRIGGS FACC, ALI FACP CCDS Ot R06.02 SHORTNESS OF BREATH 07/07/2018 ALEJO HIRSCH APRN Ot Z12.31 ENCNTR SCREEN MAMMOGRAM FOR MALIGNANT NE 07/07/2018 MAURIZIO GRIGGS FACC, ALI FACP CCDS Ot G47.33 OBSTRUCTIVE SLEEP APNEA (ADULT) (PEDIATR 07/07/2018 MAURIZIO GRIGGS FACC, ALI FACP CCDS Ot 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 Results Test Result Range Other Culture - 04/02/18 17:05 PRELIM CULTURE RESULTS No Growth 24 hours FINAL CULTURE RESULTS No Growth 48 hours Encounters ACCT No. Visit Date/Time Discharge Status Pt. Type Provider Facility Loc./Unit Complaint [id number] 07/05/2018 06:51:00 07/05/2018 23:59:59 CLS Outpatient MAURIZIO GRIGGS FACC ALI FACP CCDS [facility] CATH PALPITATIONS [id number] 06/10/2018 07:20:00 06/10/2018 23:59:59 CLS Preadmit MAURIZIO GRIGGS FACC ALI FACP CCDS [facility] CARD PALPITATION,LILI ,SOB, [id number] 05/17/2018 11:40:00 05/17/2018 23:59:59 CLS Outpatient MAURIZIO GRIGGS FACC ALI FACP CCDS [facility] CARD ,PULMONARY HTN,PALPITATION,LILI,SOB [id number] 01/20/2018 10:51:00 01/20/2018 23:59:59 CLS Preadmit QUE SCOTT [facility] RAD SCREENING [id number] 01/05/2017 11:05:00 01/05/2017 23:59:59 CLS Outpatient ALEJO HIRSCH APRN [facility] RAD Z12.31 [id number] 10/13/2016 08:15:00 10/13/2016 23:59:59 CLS Outpatient MAURIZIO GRIGGS FACC, KRISTIAN ELDRIDGE CCDS [facility] CARD SOB, [id number] 09/29/2016 11:13:00 09/29/2016 23:59:59 CLS Outpatient MAURIZIO GRIGGS FACC, ALI FACKeith CCDS [facility] RAD SOB, [id number] 08/25/2016 19:57:00 08/25/2016 22:00:00 DIS Emergency MARTHA DAY [facility] ER L FOOT INJ [id number] 11/24/2015 19:14:00 11/26/2015 11:05:00 DIS Inpatient AGUEDA GRIGGS, CLAIR Acevedo [facility] 4TH INTRACTABLE DIARRHEA VOLUME DEPLETION ILEUS FEVER [id number] 04/22/2015 09:06:00 04/22/2015 23:59:59 CLS Outpatient QUE SCOTT [facility] RAD ABD PAIN [id number] 03/04/2015 19:52:00 03/05/2015 07:10:00 DIS Outpatient FRANCHESKA WILKINS APRN [facility] SLEEP SNORING CHOKING GASPING [id number] 2015 12:40:00 2015 23:59:59 CLS Outpatient KWASI KEITH MD [facility] CARD AORTIC VALVE STENOSIS [id number] 02/25/2015 12:33:00 02/25/2015 23:59:59 CLS Outpatient FRANCHESKA WILKINS APRN [facility] RT [id number] 09/03/2014 06:27:00 09/03/2014 10:35:00 DIS [id number] 08/30/2014 05:48:00 08/30/2014 23:59:59 CLS Outpatient KORI ELDER MD [facility] PREOP [id number] 08/27/2014 07:16:00 08/27/2014 23:59:59 CLS Outpatient KWASI KEITH MD [facility] CARD [id number] 01/19/2014 08:40:00 02/09/2014 10:57:00 DIS Outpatient PAULETTE ABREU DO [facility] REHAB [id number] 02/07/2014 09:34:00 02/07/2014 23:59:59 CLS Outpatient DULCE GRIGGS, CHAZ Gotti [facility] CARD [id number] 10/11/2013 12:59:00 10/11/2013 23:59:59 CLS Outpatient QUE SCOTT [facility] RAD [id number] 06/27/2013 13:53:00 06/27/2013 23:59:59 CLS Outpatient SONYA PATEL DO [facility] RAD [id number] 05/22/2013 09:29:00 05/22/2013 23:59:59 CLS Outpatient SONYA PATEL DO [facility] RAD [id number] 04/13/2013 21:02:00 04/14/2013 06:30:00 DIS Outpatient CLAIR NEWBY MD [facility] SLEEP [id number] 03/23/2013 21:17:00 03/24/2013 06:45:00 DIS Outpatient CLAIR NEWBY MD [facility] SLEEP [id number] 07/08/2018 06:50:00 ACT Emergency KHUSHI FRIED MD [facility] ER FALL AT HOME [id number] 10/17/2014 16:33:00 Document Registration [id number] 08/27/2014 07:20:00 Document Registration [id number] 08/27/2014 07:20:00 Document Registration [id number] 08/27/2014 07:20:00 Document Registration [id number] 08/27/2014 07:20:00 Document Registration [id number] 06/22/2012 05:29:00 Document Registration [id number] 06/21/2012 10:08:00 Document Registration [id number] 06/21/2012 07:42:00 Document Registration [id number] 06/07/2012 07:50:00 Document Registration [id number] 02/01/2012 08:36:00 Document Registration [id number] 12/23/2011 05:49:00 Document Registration [id number] 12/16/2011 09:23:00 Document Registration [id number] 10/21/2011 10:21:00 Document Registration [id number] 10/15/2011 10:19:00 Document Registration [id number] 09/23/2011 12:53:00 Document Registration [id number] 08/19/2011 08:39:00 Document Registration [id number] 06/24/2011 11:01:00 Document Registration [id number] 05/20/2011 09:41:00 Document Registration [id number] 08/05/2010 11:25:00 Document Registration [id number] 05/21/2010 08:40:00 Document Registration [id number] 03/20/2010 08:35:00 Document Registration [id number] 03/11/2010 08:29:00 Document Registration [id number] 03/10/2010 08:43:00 Document Registration [id number] 11/13/2009 11:19:00 Document Registration [id number] 09/05/2009 14:10:00 Document Registration [id number] 09/04/2009 09:18:00 Document Registration [id number] 07/26/2009 10:54:00 Document Registration [id number] 05/22/2009 08:30:00 Document Registration [id number] 03/21/2009 15:30:00 Document Registration [id number] 04/07/2018 09:51:00 04/07/2018 23:59:00 DIS Outpatient Miriam Newman [id number] 04/02/2018 16:11:00 04/02/2018 18:34:00 DIS Outpatient Debora [facility] [id number] 02/17/2018 11:34:00 02/17/2018 23:59:00 DIS Outpatient Miriam Newman [id number] 04/02/2018 18:10:54 Document Registration [id number] 07/09/2017 23:09:50 07/09/2017 23:59:59 CLS Outpatient Clair Newby
[2018-07-08 08:49] VITALS: BP 138/77
== END 2018-07-08 08:48 | disposition home or self-care (01) ==
LOC: EDUNIT# 06:48 → ER 06:50
DX: S01.111A Laceration without foreign body of right eyelid and periocular area, initial encounter (principal); I10 Essential (primary) hypertension; F41.9 Anxiety disorder, unspecified; F32.9 Major depressive disorder, single episode, unspecified; Z79.51 Long term (current) use of inhaled steroids; Z82.49 Family history of ischemic heart disease and other diseases of the circulatory system; Z80.0 Family history of malignant neoplasm of digestive organs; Z23 Encounter for immunization; Z88.0 Allergy status to penicillin; Z91.041 Radiographic dye allergy status; Z91.048 Other nonmedicinal substance allergy status; Z90.710 Acquired absence of both cervix and uterus; Z90.89 Acquired absence of other organs; W01.190A Fall on same level from slipping, tripping and stumbling with subsequent striking against furniture, initial encounter
CPT/HCPCS: 12011; 90715

== ENCOUNTER → 2018-07-18 | Outpatient (CLI) | payer MEDICARE | LOC: CARD 09:44 | PROVIDERS: ATTEND Internal Medicine Cardiovascular Disease | DX: R00.2 Palpitations (principal); R06.02 Shortness of breath; I35.0 Nonrheumatic aortic (valve) stenosis; G47.33 Obstructive sleep apnea (adult) (pediatric) | CPT/HCPCS: 93306 ==

== ENCOUNTER 2019-05-19 10:06 | Outpatient (CLI) | payer MEDICARE ==
[~2019-05-19] VITALS: Ht 165.1 cm; Wt 63.1 kg
[~2019-05-19 10:06] MED LIST changes: -OMEP20CA12 PO; +OMEP20CA13 PO
[2019-05-19 10:19] VITALS: BP 158/82
[2019-05-19] MEDS ORDERED: MIRT7.5T8 PO (12:00)
[2019-05-19] MEDS ORDERED: GABA-486 PO (12:00)
[2019-05-19] MEDS ORDERED: METO50TA15 PO (12:00)
[2019-05-19] MEDS ORDERED: LOSA50TA63 PO (12:00)
== END 2019-05-19 10:35 | disposition home or self-care (01) ==
LOC: PREOP 10:06
PROVIDERS: ATTEND Orthopaedic Surgery
DX: Z01.818 Encounter for other preprocedural examination (principal)
CPT/HCPCS: 87081

== ENCOUNTER 2019-05-24 08:28 | Day surgery (SDC) | payer MEDICARE ==
--- NOTE | 2019-05-18 13:26 | HISTORY AND PHYSICAL ---
DATE OF SERVICE: ADMISSION HISTORY AND PHYSICAL This will be for outpatient surgery on 05/24/2019 for right distal radius open reduction and pin fixation. HISTORY OF PRESENT ILLNESS: The patient is a 79-year-old female, who is 4 weeks out from a right distal radius fracture, which has had collapsed at the radial styloid. The patient was counseled that this could be treated conservatively or with attempts at realignment and the patient elected to proceed with surgical intervention. She denies paresthesias. REVIEW OF SYSTEMS: No chest pain, no shortness of breath, no dysuria. PAST MEDICAL HISTORY: Arthritis, low back pain, hypercholesterolemia, hypertension, sleep apnea, depression and anxiety. PAST SURGICAL HISTORY: Left total knee arthroplasty, right rotator cuff, hysterectomy, cholecystectomy, lumbar spine, pain stimulator and colon resection. FAMILY HISTORY: Significant for cardiovascular disease, asthma. PRIMARY CARE PROVIDER: Dr. Newman. MEDICATIONS: Lipitor, alprazolam, hydrocodone, metoprolol, gabapentin, bupropion, isosorbide, losartan. ALLERGIES: PENICILLIN. SOCIAL HISTORY: The patient drinks alcohol socially. Denies tobacco use. RADIOGRAPHS: As above. PHYSICAL EXAMINATION: GENERAL: The patient is well-developed, well-nourished, in no acute distress. HEENT: Normocephalic, atraumatic. Pupils are equal, round and reactive to light. Oropharynx is clear. NECK: Supple, no lymphadenopathy. LUNGS: Clear to auscultation bilaterally. HEART: Regular rate and rhythm. ABDOMEN: Soft, nontender, nondistended. EXTREMITIES: The patient is tender over fracture site. No skin lesions noted. There is no gross deformity noted. IMPRESSION: Right distal radius fracture, intraarticular, displaced. PLAN: Open reduction and pin fixation of the right distal radius. We discussed risks, benefits, options, ramifications and recovery. She understands and wishes to proceed. Job ID: [id number] DocumentID: [id number] Dictated Date: 05/18/2019 10:52:01 Billboard Poster Date: 05/18/2019 11:39:04 Dictated By: SONYA VERDE MD
--- NOTE | 2019-05-22 08:47 | HISTORY AND PHYSICAL ---
DATE OF SERVICE: ADDENDUM This will be for outpatient surgery on 05/24/2019. In addition to her right distal radius fracture, which will be addressed surgically, the patient has had catching and locking in her right small finger. She is tender over A1 lillie. She could demonstrate active triggering has full MCP, DIP and PIP flexion and extension. Our plan will be to perform a right small finger trigger release at the time of her distal radius surgery. Job ID: [id number] DocumentID: [id number] Dictated Date: 05/22/2019 08:23:25 Outside Cutter Date: 05/22/2019 08:46:15 Dictated By: SONYA VERDE MD
[~2019-05-24] VITALS: Ht 165.1 cm; Wt 64.3 kg
[2019-05-24] VITALS (11 sets, daily range): BP systolic 119–182; BP diastolic 61–95
[~2019-05-24 08:28] MED LIST changes: +GABA-486 PO; +LOSA50TA63 PO; +METO50TA15 PO; +MIRT7.5T8 PO
[2019-05-24] MEDS ORDERED: LACTATED RINGERS 1,000 ML IV PRN (08:32)
[2019-05-24] MEDS ORDERED: CLINDAMYCIN 600 MG/50 ML IVPB 50 ML IV ONE (08:45)
--- NOTE | 2019-05-24 09:02 | Progress Note-Pre Operative ---
Pre-Operative Progress Note H&P Reviewed The H&P was reviewed, patient examined and no changes noted. Date Seen by Provider: May 24, 2019 Time Seen by Provider: 09:01 Date H&P Reviewed: May 24, 2019 Time H&P Reviewed: 09:01 Pre-Operative Diagnosis: displaced distal radius fracture and small finger trigger SONYA VERDE MD May 24, 2019 09:02
--- NOTE | 2019-05-24 09:04 | Progress Note-Post Operative ---
Post-Operative Progess Note Surgeon (s)/Red Lead Burner (s) Surgeon SONYA VERDE MD Red Lead Burner: Rell Andres Pre-Operative Diagnosis displaced distal radius fracture and small finger trigger Post-Operative Diagnosis displaced distal radius fracture small finger trigger finger Procedure & Operative Findings Date of Procedure 05/24/19 Procedure Performed/Findings open reduction and percutaneous pin fixation right distal radius and right small finger A1 lillie release Anesthesia Type GETA Estimated Blood Loss Estimated blood loss (mL): minimal Specimens/Packing Specimens Removed none Packing: none SONYA VERDE MD May 24, 2019 09:04
[2019-05-24] MEDS ORDERED: BUPIVACAINE 0.25% 30 ML (SENSORCAINE) VIAL ONE (09:13)
[2019-05-24] MEDS ORDERED: SEVOFLURANE (ULTANE) 15 ML INHAL SOLN ONE ×2 (09:15→10:33)
[2019-05-24] MEDS ORDERED: DEXAMETHASONE 10 MG/ML (DECADRON) 1 ML VIAL ONE (09:15)
[2019-05-24] MEDS ORDERED: LIDOCAINE PF 2% 5 ML (XYLOCAINE) VIAL ONE (09:15)
[2019-05-24] MEDS ORDERED: fentaNYL INJECTION 100 MCG/2 ML AMP ONE (09:15)
[2019-05-24] MEDS ORDERED: ONDANSETRON 4 MG/2 ML (SDV) Z0FRAN ONE ×2 (09:15→11:26)
[2019-05-24] MEDS ORDERED: proPOfol 200 MG/20 ML (DIPRIVAN) VIAL IV ONE (09:15)
[2019-05-24] MEDS ORDERED: HYDROcodone/APAP 7.5 MG/325 MG (LORTAB, LORCET PLUS) TABLET PO PRN (10:00)
[2019-05-24] MEDS ORDERED: morphine INJ 10 MG/ML 1ML (SYR OR VIAL) IVP ONE (11:00)
[2019-05-24] MEDS ORDERED: ONDANSETRON 4 MG/2 ML (SDV) Z0FRAN IVP PRN (11:00)
--- NOTE | 2019-05-24 11:21 | Diagnostic Imaging Report ---
INDICATION: Intraoperative guidance. COMPARISON: None Total fluoroscopy time: 31 seconds Total number of fluoroscopic images saved: 6 FINDINGS: Multiple intraoperative image intensifier views of the the right wrist were obtained during placement of REYMUNDO wires within the distal radius. Please note, interpreting radiologist was not present during the procedure. IMPRESSION: 1. Fluoroscopic guidance as described above. Dictated by: Dictated on workstation # [id number]
--- NOTE | 2019-05-24 11:58 | Anesthesia-General Post-Op ---
General Patient Condition Mental Status/LOC: Same as Preop Cardiovascular: Satisfactory Nausea/Vomiting: Absent Respiratory: Satisfactory Pain: Controlled Complications: Absent Post Op Complications Complications None Follow Up Care/Instructions Patient Instructions None needed. Anesthesia/Patient Condition Patient Condition Patient is doing well, no complaints, stable vital signs, no apparent adverse anesthesia problems. CLARITA PRAJAPATI DO May 24, 2019 11:58
[2019-05-24] MEDS ORDERED: HYDR-3063 PO (12:14)
--- NOTE | 2019-05-24 14:58 | OPERATIVE REPORT ---
DATE OF SERVICE: 05/24/2019 PREOPERATIVE DIAGNOSES: 1. Displaced right distal radius fracture, intra-articular, closed. 2. Right small finger trigger finger. POSTOPERATIVE DIAGNOSES: 1. Displaced right distal radius fracture, intra-articular, closed. 2. Right small finger trigger finger. PROCEDURES: 1. Open reduction and percutaneous pin fixation of the right distal radius. 2. Right small finger A1 lillie release. SURGEON: Tawanda Verde MD DEBT COLLECTOR: Rell Andres, who assisted throughout the procedure and closed the incisions. ANESTHESIA: General endotracheal by Chidi Arreola CRNA. TOURNIQUET TIME: 12 minutes at 250 mmHg. ESTIMATED BLOOD LOSS: Minimal. DRAINS: None. COMPLICATIONS: None. POSTOPERATIVE PLAN: Pin immobilization for four weeks. The patient was transported to the recovery room in awake and stable condition. STATEMENT OF MEDICAL NECESSITY: The patient is a 79-year-old female, who is approximately five weeks status post distal radius fracture. The fracture initially demonstrated good alignment; however, she developed displacement of the radial styloid fracture with articular step off. Because of this, the patient elected to proceed with surgical intervention. In addition, the patient had complained of catching and locking in her small finger, which had been progressive in nature and requested addressing this operatively at the same setting. PROCEDURE IN DETAIL: After risks and benefits of procedure were discussed and questions were answered, an informed consent was signed and placed on chart, the operative site was confirmed in the preoperative holding area initialed by the surgeon. The patient was then transported to the operating room and after adequate levels of general endotracheal anesthetic were obtained, a timeout was called, confirming the operative site. The operative site was prepped and draped in the usual sterile fashion with arm elevated, tourniquet was inflated to 250 mmHg. A small percutaneous incision was made dorsally just radial to the extensor pollicis longus tendon and a subperiosteal dissection was performed. The fracture line was evident and an elevator was used to elevate the fracture after mobilizing the fracture line. This brought the fracture into anatomic alignment and two K-wires were passed, one obliquely across the fracture site from the radial styloid and the second transversely from radial to ulnar. Fluoroscopy of the AP, lateral, oblique planes revealed anatomic reduction of the fracture with well-placed hardware. The wound was copiously irrigated and closed with 4-0 nylon in simple interrupted fashion. An incision was then made over the A1 lillie of the small finger volarly. The underlying soft tissues were bluntly dissected exposing the A1 lillie, which was then incised longitudinally. The finger was taken through range of motion. Full flexion, extension were noted throughout the MCP, DIP and PIP joints with no triggering noted. The wound was copiously irrigated after deflating the tourniquet and closed with 4-0 nylon in simple interrupted fashion. A soft dressing and splint were applied and the patient was transported to the recovery room awake and in stable condition. Job ID: [id number] DocumentID: [id number] Dictated Date: 05/24/2019 10:45:37 Director Public Date: 05/24/2019 14:56:56 Dictated By: TAWANDA VERDE MD
== END 2019-05-24 12:55 | disposition home or self-care (01) ==
LOC: SDC 08:28
PROVIDERS: ATTEND Orthopaedic Surgery
DX: S52.571A Other intraarticular fracture of lower end of right radius, initial encounter for closed fracture (principal); M65.351 Trigger finger, right little finger; M19.90 Unspecified osteoarthritis, unspecified site; E78.00 Pure hypercholesterolemia, unspecified; I10 Essential (primary) hypertension; Z90.49 Acquired absence of other specified parts of digestive tract; Z79.891 Long term (current) use of opiate analgesic; Z88.0 Allergy status to penicillin; Z79.899 Other long term (current) drug therapy; Z82.49 Family history of ischemic heart disease and other diseases of the circulatory system; Z82.5 Family history of asthma and other chronic lower respiratory diseases
CPT/HCPCS: 87081